=== PATIENT | male | born 1970 | race Caucasian/White ===

== ENCOUNTER 2016-10-23 22:28 | Emergency (ER) | payer BC, OTHER ==
[~2016-10-23] VITALS: Ht 188 cm; Wt 104.6 kg
[~2016-10-23 22:28] MED LIST: AZITTAB PO; FLX10 PO; TRAZ50TA35 PO
[2016-10-23 22:30] VITALS: TEMP 36.7; Ht 188 cm; Wt 104.6 kg
[2016-10-23] MEDS ORDERED: MoRPHine SULFATE 10 MG/ML CARP/VIAL IM STA (22:49)
--- NOTE | 2016-10-23 22:54 | EMERGENCY ROOM VISIT NOTE ---
History First contact with patient: 22:37 Chief Complaint: RIB PAIN Stated Complaint: LF RIB PAIN W/SPASMS History of Present Illness The patient is a 45 year old male who presents to the Emergency Room with complaints of right rib pain. The patient was treated for pneumonia with doxycycline. He had symptoms of upper respiratory tract infection for 2 weeks until he saw the doctor. He just finished the doxycycline. He states that the cough is no longer productive but he still is coughing. His entire family has similar symptoms. The patient states that when he was coughing last week he felt a pulling sensation in the right ribs. He states that he saw his chiropractor and his family doctor and the rib pain was improving. He states that today he sneezed and felt a snap in the right ribs and significant worsening pain. The patient rates his discomfort a 10/10. He denies any shortness of breath. He denies any abdominal pain. He denies any falls or injuries. The patient denies any personal or family history of DVT or PE. The patient denies any recent surgery. He denies any recent travel. He does not smoke. Review of Systems A 10 system review of systems was completed with positives and pertinent negatives listed in the HPI. Past Medical/Surgical History Medical Problems: (1) Lumbar herniated disc Social History Smoking Status: Never Smoker Housing Status: lives with family Current/Historical Medications Scheduled Acetaminophen (Tylenol), 1,000 MG PO PRN UD Hydroxyzine HCl (Hydroxyzine HCl), 1-2 TABS PO HS Levothyroxine Sodium (Levothyroxine Sodium), 175 MCG PO DAILY Multivitamins/Minerals (Mvi With Minerals), 1 TAB PO DAILY Scheduled PRN Oxycodone Ir (Roxicodone Ir), 1-2 TAB PO Q4H PRN for Pain Zaleplon (Zaleplon), 5 MG PO HS PRN for Sleep Allergies Coded Allergies: Naproxen (Verified Allergy, Intermediate, SWELLING EYES AND LIPS, 05/10/14) Penicillins (Verified Allergy, Intermediate, HIVES, SWELLING, 05/10/14) Physical Exam Vital Signs Date Time Temp Pulse Resp B/P Pulse Ox O2 Delivery O2 Flow Rate FiO2 10/24/16 00:12 82 22 128/82 93 Room Air 10/23/16 22:30 36.7 69 24 155/94 100 Room Air Physical Exam VITALS: Vitals are noted on the nurse's note and reviewed by myself. Vital signs stable. The patient is afebrile. He is not tachycardic, tachypneic or hypoxic. GENERAL: This is a 45-year-old male, in no acute distress, nondiaphoretic, well- developed well-nourished. SKIN: The skin was without rashes, erythema, edema, or bruising. There is no tenting of the skin. Capillary reflex less than 2 seconds. HEAD: Normocephalic atraumatic. EARS: The external ears are normal in appearance. EYES: Pupils equal round and reactive to light and accommodation. Conjunctivae without injection, sclerae without icterus. Extraocular movements intact. NOSE: Patent, turbinates without inflammation or discharge. MOUTH: Mucous membranes moist. Tonsils are not enlarged. Pharynx without erythema or exudate. Uvula midline. Airway patent. Tongue does not deviate. NECK: Supple without nuchal rigidity. No JVD. HEART: Regular rate and rhythm without murmurs gallops or rubs. LUNGS: Clear to auscultation bilaterally without wheezes, rales or rhonchi. No retractions or accessory muscle use. Marked tenderness to palpation to the right lateral and anterior ribs. ABDOMEN: Positive bowel sounds x 4. Soft, nontender, without masses or organomegaly. MUSCULOSKELETAL: No muscle atrophy, erythema, or edema noted. Full range of motion in all extremities. Normal gait. Strength 5/5 throughout. NEURO: Patient was alert and oriented to person place and time. No focal neurological deficits. Medical Decision & Procedures ER Provider Diagnostic Interpretation: Chest x-ray was reviewed by myself and does not reveal any obvious abnormality Laboratory Results 10/24/16 00:07 Red Blood Count 4.77, Mean Corpuscular Volume 89.1, Mean Corpuscular Hemoglobin 31.9, Mean Corpuscular Hemoglobin Concent 35.8, Mean Platelet Volume 10.0, Neutrophils (%) (Auto) 67.0, Lymphocytes (%) (Auto) 23.8, Monocytes (%) (Auto) 7.9, Eosinophils (%) (Auto) 0.9, Basophils (%) (Auto) 0.3, Neutrophils # (Auto) 5.18, Lymphocytes # (Auto) 1.84, Monocytes # (Auto) 0.61, Eosinophils # (Auto) 0.07, Basophils # (Auto) 0.02 Test 10/24/16 00:07 10/24/16 00:09 10/24/16 00:17 White Blood Count 7.73 K/uL (4.8-10.8) Red Blood Count 4.77 M/uL (4.7-6.1) Hemoglobin 15.2 g/dL (14.0-18.0) Hematocrit 42.5 % (42-52) Mean Corpuscular Volume 89.1 fL (80-100) Mean Corpuscular Hemoglobin 31.9 pg (25-34) Mean Corpuscular Hemoglobin Concent 35.8 g/dl (32-36) Platelet Count 240 K/uL (130-400) Mean Platelet Volume 10.0 fL (7.4-10.4) Neutrophils (%) (Auto) 67.0 % Lymphocytes (%) (Auto) 23.8 % Monocytes (%) (Auto) 7.9 % Eosinophils (%) (Auto) 0.9 % Basophils (%) (Auto) 0.3 % Neutrophils # (Auto) 5.18 K/uL (1.4-6.5) Lymphocytes # (Auto) 1.84 K/uL (1.2-3.4) Monocytes # (Auto) 0.61 K/uL (0.11-0.59) Eosinophils # (Auto) 0.07 K/uL (0-0.5) Basophils # (Auto) 0.02 K/uL (0-0.2) RDW Standard Deviation 40.5 fL (36.4-46.3) RDW Coefficient of Variation 12.4 % (11.5-14.5) Immature Granulocyte % (Auto) 0.1 % Immature Granulocyte # (Auto) 0.01 K/uL (0.00-0.02) Bedside Hemoglobin 14.6 g/dl (14.0-18.0) Bedside Hematocrit 43 % (42-52) Bedside Sodium 138 mEq/L (135-144) Bedside Potassium 3.8 mEq/L (3.3-5.0) Bedside Chloride 101 mEq/L (101-112) Bedside Total CO2 24 mEq/l (24-31) Anion Gap 19.0 mmol/L (16-25) Bedside Blood Urea Nitrogen 9 mg/dl (7-18) Bedside Creatinine 0.8 mg/dl (0.6-1.3) Bedside Glucose (other) 109 mg/dl (70-99) Bedside Ionized Calcium (Annemarie) 1.18 mmol/l (1.12-1.32) Bedside D-Dimer 177 ng/mlFEU (0-450) Medications Administered Medications (Trade) Dose Ordered Sig/Opal Route Start Time Stop Time Status Last Admin Dose Admin Morphine Sulfate (MoRPHine SULFATE INJ) 6 mg NOW STAT IM 10/23/16 22:49 10/23/16 22:51 DC 10/23/16 23:04 6 MG ECG Indication: SOB/dyspnea Rate (beats per minute): 72 Rhythm: normal sinus Findings: no acute ischemic change ED Course The patient was seen and examined. Previous visits were reviewed. The patient does not have a fever or leukocytosis. D-dimer is not elevated. The patient has had right-sided back pain secondary to coughing and when he sneezed today he felt a snap and significantly worsening pain. He is not tachycardic, tachypneic or hypoxic. He fulfills all 8 PERC criteria. D-dimer was not elevated. He is considered low risk for pulmonary embolus. He does not have any abdominal tenderness on examination. This likely represents musculoskeletal chest pain. The patient was given 6 mg IM morphine with improvement in his pain. He will be given a prescription for OxyIR. He should follow-up with his family doctor next week for recheck, further evaluation and management. He should return to the ER with any trouble breathing, fevers, abdominal pain or generalized worsening symptoms. The case was discussed with who agrees with the assessment and treatment plan. Medical Decision DIFFERENTIAL DIAGNOSIS: Aortic dissection, myocarditis, pericarditis, cervical disc disease, costochondritis, herpes zoster, rib fracture, pleuritis, pneumonia , pulmonary embolus, tension pneumothorax, anxiety disorder, somatoform disorder , choledocholithiasis, status, esophagitis, esophageal spasm, esophageal reflux , esophageal rupture, pancreatitis, peptic ulcer disease, cardiac ischemia, ST elevation [place], acute coronary syndrome, arrhythmia, coronary artery vasospasm. vavular heart disease, coronary artery disease, among others. [place] Drug Monitoring Program Search Results: patient reviewed within database, no issues identified Impression Primary Impression: Rib pain Additional Impression: Pleuritic pain Departure Information Dispostion Home / Self-Care Condition GOOD Prescriptions Oxycodone Ir (Roxicodone Ir) 5 Mg Tab 1-2 TAB PO Q4H Y for Pain, #36 TAB For Initial Treatment Prov: Leonarda Spence PA-C 10/24/16 Referrals Cinda Mcmullen D.O. (PCP) Patient Instructions ED Contusion Rib, My [facility] Additional Instructions Oxy IR 1-2 tablets every 4-6 hrs as needed for worse pain. No driving or alcohol use with Oxy IR. Contact your family doctor Tuesday to schedule a follow-up appointment for further evaluation and management Return to the emergency department with worsening pain, fevers, trouble breathing, abdominal pain Problem Qualifiers
[2016-10-23] MEDS ORDERED: ACET-1256 PO (23:14)
[2016-10-23] MEDS ORDERED: ATR25 PO (23:14)
[2016-10-23] MEDS ORDERED: [UNRECOGNIZED DRUG - CODE] PO (23:14)
[2016-10-23] MEDS ORDERED: MULT-513 PO (23:14)
[2016-10-23] MEDS ORDERED: LEVO175T3 PO (23:14)
[2016-10-24 00:22] LABS: BASO % 0.3 %; BASO ABS # 0.02 K/uL (0-0.2); COMPLETE YES; EOS % 0.9 %; HEMATOCRIT 42.5 % (42-52); IG% 0.1 %; LYMPH % 23.8 %; LYMPH ABS # 1.84 K/uL (1.2-3.4); MEAN CELL VOLUME 89.1 fL (80-100); MEAN CORPUSCULAR HEMOGLOBIN 31.9 pg (25-34); MEAN CORPUSCULAR HGB CONC 35.8 g/dl (32-36); MONO % 7.9 %; PLATELET COUNT 240 K/uL (130-400); RED BLOOD COUNT 4.77 M/uL (4.7-6.1); WHITE BLOOD COUNT 7.73 K/uL (4.8-10.8)
[2016-10-24 00:25] LABS: ISTAT CREATININE 0.8 mg/dl (0.6-1.3); ISTAT HEMOGLOBIN 14.6 g/dl (14.0-18.0); ISTAT IONIZED CALCIUM 1.18 mmol/l (1.12-1.32)
[2016-10-24] MEDS ORDERED: OXYC1TAB3 PO (00:33)
[2016-10-24] MEDS ORDERED: OXYCODONE IR HOME PACK PO ONE (00:45)
[2016-10-24 00:53] VITALS: BP 128/82; PULSE 82; O2SAT 95
--- NOTE | 2016-10-24 06:00 | DIAGNOSTIC IMAGING REPORT ---
RIGHT RIBS UNILATERAL WITH PA CHEST CLINICAL HISTORY: right rib pain Right COMPARISON STUDY: None FINDINGS: Negative study IMPRESSION: Negative study Electronically signed by: Randy Ramirez M.D. 10/24/2016 5:59 AM Dictated Date/Time: 10/24/2016 5:58 AM
== END 2016-10-24 00:54 | disposition home or self-care (01) ==
LOC: C.EDB 22:30 → C.EDC 10-24 00:54
DX: R07.81 Pleurodynia (principal)

== ENCOUNTER 2024-03-29 15:40 | Inpatient (IN) ==
[2024-03-29 16:19] LABS: Basophils # (auto) 0.05 K/uL (0.00-0.20); Basophils % (auto) 0.6 %; Eosinophils # (auto) 0.15 K/uL (0.00-0.50); Eosinophils % (auto) 1.9 %; Hematocrit (blood only) 39.6 % (42.0-52.0); Hemoglobin 13.4 g/dl (14.0-18.0); Immature Granulocytes # (auto) 0.04 K/uL (0.01-0.20); Immature Granulocytes % (auto) 0.5 %; Lymphocytes # (auto) 0.52 K/uL (1.20-3.40); Lymphocytes % (auto) 6.6 %; Mean Corpuscular Hemoglobin 30.3 pg (25.0-34.0); Mean Corpuscular Hgb Conc 33.8 g/dL (32.0-36.0); Mean Corpuscular Volume 89.6 fL (80.0-100.0); Mean Platelet Volume 9.9 fL (9.4-12.4); Monocytes # (auto) 0.64 K/uL (0.11-0.59); Monocytes % (auto) 8.1 %; Neutrophils # (auto) 6.46 K/uL (1.40-6.50); Neutrophils % (auto) 82.3 %; Platelet Count 195 K/uL (130-400); RDW Coefficient of Variation 14.2 % (11.5-14.5); RDW Standard Deviation 46.5 fL (36.4-46.3); Red Blood Count 4.42 M/uL (4.70-6.10); White Blood Count 7.86 K/ul (4.8-10.8)
[2024-03-29 16:29] LABS: Albumin Globulin Ratio 1.6 (0.9-2); Albumin Level 4.1 gm/dl (3.4-5.0); BUN Creatinine Ratio 12.4 (10-20); Calcium 8.7 mg/dl (8.6-10.3); Creatinine Clr Calc Pharmacy 44.6 ml/min; Est GFR (African American) 32.7 ml/min; Est GFR (Non-African American) 28.3 ml/min; Globulin 2.6 gm/dl (2.5-4.0); Potassium 3.3 mmol/L (3.5-5.1); Total Protein 6.7 gm/dl (6.0-8.3)
--- NOTE | 2024-03-29 16:30 | Emergency Department Note ---
Impression & Plan Pneumonia, VENKAT (acute kidney injury), Elevated troponin, CHF (congestive heart failure) ED Provider Note Diagnosis: Pneumonia, VENKAT, hypertension, CHF, elevated troponin Disposition: Admission CHIEF COMPLAINT: Sent by PCP HPI: Patient is a 53-year-old male presenting with complaint of cough and shortness of breath for 2 months time. Patient states that went to primary care physician 2 days prior had a chest x-ray and blood work performed. Patient was found to have multifocal pneumonia started on Levaquin prescribed today. Patient had blood work a creatinine of 2-1/2 which reportedly is new for him. Patient was hypertensive and his blood pressure medication of HCTZ was switched to amlodipine. Patient states he has been having swelling in his hands and been having generalized weakness in his legs bilaterally after exerting himself for periods of time. Patient states he goes to chiropractor regularly. Patient denies any trauma or current back pain. PAST MEDICAL HISTORY: See Below PAST SURGICAL HISTORY: See Below SOCIAL HISTORY: See Below HOME MEDICATIONS: See Below ALLERGIES: See Below VITALS: See Below PHYSICAL EXAMINATION: GENERAL: Well appearing, well nourished, NAD, non-toxic. EYE EXAM: Normal conjunctiva. OROPHARYNX: Moist mucus membranes. Grossly normal dentition. NECK: Supple, LUNGS: Clear to auscultation. Normal chest wall mechanics. HEART: NSR ABDOMEN: Abdomen soft, non-tender, normo-active bowel sounds, no masses, no rebound or guarding BACK: No CVA TTP. SKIN: No rashes and no bruising. UPPER EXTREMITIES: Upper extremities are grossly normal LOWER EXTREMITIES: Grossly normal, no edema. NEURO EXAM: A&O x3,, normal speech, moves all 4 extremities PSYCH: Cooperative MEDICAL DECISION MAKING: Reviewed external documents: Family doctor note from 2 days prior History obtained from: Patient, ER Course: Patient is a 53-year-old male presenting with reports of feeling short of breath for the past 2 to 3 months time. Patient made new family doctor appointment this week had a chest x-ray performed which showed multifocal pneumonia and was started on Levaquin which she took the first dose of today. Patient had blood work performed which showed a creatinine of 2.5. Patient sent to the ER for further evaluation. Patient had his hydrochlorothiazide stopped and was placed on amlodipine. Patient's blood pressure above 200 systolic upon arrival. Patient having no active chest pain currently. Patient's creatinine today is 2.5. Patient does not have any white count. Patient's chest x-ray does show multifocal pneumonia left greater than right. Patient's troponin is slightly elevated. Patient's BNP is approximately 300. Patient states that he has noticed some swelling in his fingertips and of his lower extremities recently. Patient states he is not taking any of his blood pressure medications in 1 to 2 years time. Patient states over the past year he has episodes the last 5 to 10 minutes time where he feels like his heart is racing and an erratic pattern. Patient in normal sinus rhythm currently but concern for potential undiagnosed A-fib. Patient's case discussed with [facility] service further treatment and evaluation Labs (independently interpreted) are significant for: Troponin slightly elevated, acute kidney injury, elevated BNP Imaging results (independently interpreted): Chest x-ray pneumonia left greater than right EKG interpretation (independently interpreted): Normal sinus rhythm Medications given: Labetalol Consultants: [facility] Triage Nursing notes reviewed and agree them. Vital Signs: reviewed and remarkable for: Hypertension Past Med/Surg History Problem List (Updated 03/29/24 @ 18:12 by Sacha Magana DO) CHF (congestive heart failure) (Acute) Elevated troponin (Acute) VENKAT (acute kidney injury) (Acute) Pneumonia (Acute) Chronic rhinitis Eustachian tube dysfunction BPPV (benign paroxysmal positional vertigo) Pressure sensation in both ears Sensorineural hearing loss (SNHL) of both ears asymmetric wrs Finger laceration (Acute) Lumbar herniated disc Medical History (Updated 03/29/24 @ 18:12 by Sacha Magana DO) Hypothyroid Asthma Seasonal allergies H/O gastroesophageal reflux (GERD) Surgical History (Updated 02/10/21 @ 08:26 by Nona Salazar) History of repair of hiatal hernia Family History (Updated 02/10/21 @ 08:28 by Nona Salazar) Grandfather (Maternal) Hearing loss Father Hypertension Grandmother (Paternal) Cancer unknown type Family/Other Asthma patient not sure but thinks he has a family history of asthma Other No family history of adverse response to anesthesia No family history of bleeding disorder Social History (Updated 02/10/21 @ 08:28 by Nona Salazar) Smoking Status: Never smoker Do You Dip or Chew Tobacco: No; Hx Alcohol Use: Yes Alcohol Intake Frequency Comment: occasional Hx Substance Use: No marital status: Single current occupational status: employed 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 Feels Safe at Home: Yes Allergies Allergies Allergy/AdvReac Type Severity Reaction Status Date / Time naproxen Allergy Intermediate SWELLING Verified 06/22/21 08:53 EYES AND LIPS Penicillins Allergy Intermediate HIVES, Verified 06/22/21 08:53 SWELLING amoxicillin Allergy Unknown Verified 06/22/21 08:53 Home Meds Home Medications Medication Instructions Recorded Confirmed fluticasone 250 mcg-salmeterol 50 1 inh inhalation BID 02/10/21 06/22/21 mcg/dose blistr powdr for inhalation (Wixela Inhub) levothyroxine 200 mcg tablet 200 mcg PO DAILY 02/10/21 06/22/21 Previous Rx's Medication Instructions Recorded prednisone 10 mg tablet 10 mg PO .COMPLEX #35 tabs 02/26/21 fluticasone propionate 50 2 spray intranasal DAILY #15.8 mL 08/27/21 mcg/actuation nasal spray,suspension Results & Data (ED) Vital Signs Vital Signs - 24 hr 03/29/24 15:44 03/29/24 16:41 03/29/24 16:42 Temperature 36.7 C Temperature Source Skin Oral Pulse Rate 95 H 87 Pulse Rate [Apical] Pulse Rhythm [Apical] Regular Respiratory Rate 18 20 Respiratory Depth Normal Blood Pressure 207/90 H Blood Pressure [Left Arm] 186/119 H Blood Pressure Mean 129 Blood Pressure Mean [Left Arm] 141 Pulse Oximetry 97 96 Oxygen Delivery Method Room Air Room Air Sepsis Recent Fever Within 48 Hours No Sepsis New/Unexplained Change in Mental Status No Sepsis Action Taken by Nursing No Action Required 03/29/24 16:59 03/29/24 16:59 03/29/24 17:55 Temperature Temperature Source Pulse Rate Pulse Rate [Apical] 76 Pulse Rhythm [Apical] Regular Respiratory Rate 16 Respiratory Depth Normal Blood Pressure Blood Pressure [Left Arm] 180/117 H Blood Pressure Mean Blood Pressure Mean [Left Arm] 138 Pulse Oximetry 98 97 Oxygen Delivery Method Room Air Room Air Room Air Sepsis Recent Fever Within 48 Hours Sepsis New/Unexplained Change in Mental Status Sepsis Action Taken by Nursing Laboratory Data 03/29/24 15:56 03/29/24 15:56 Lab Results 03/29/24 03/29/24 Range/Units 15:56 Unknown WBC 7.86 (4.8-10.8) K/ul RBC 4.42 L (4.70-6.10) M/uL Hgb 13.4 L (14.0-18.0) g/dl Hct 39.6 L (42.0-52.0) % MCV 89.6 (80.0-100.0) fL MCH 30.3 (25.0-34.0) pg MCHC 33.8 (32.0-36.0) g/dL RDW Std Deviation 46.5 H (36.4-46.3) fL RDW Coeff of Meena 14.2 (11.5-14.5) % Plt Count 195 (130-400) K/uL MPV 9.9 (9.4-12.4) fL Immature Gran % (Auto) 0.5 % Neut % (Auto) 82.3 % Lymph % (Auto) 6.6 % Camp % (Auto) 8.1 % Eos % (Auto) 1.9 % Baso % (Auto) 0.6 % Neut # (Auto) 6.46 (1.40-6.50) K/uL Lymph # (Auto) 0.52 L (1.20-3.40) K/uL Camp # (Auto) 0.64 H (0.11-0.59) K/uL Eos # (Auto) 0.15 (0.00-0.50) K/uL Baso # (Auto) 0.05 (0.00-0.20) K/uL Immature Gran # (Auto) 0.04 (0.01-0.20) K/uL PT 12.1 H (9.0-12.0) Seconds INR 1.1 (0.9-1.1) APTT 28 (21-31) Seconds PTT Ratio 1.0 Sodium 135 L (136-145) mmol/L Potassium 3.3 L (3.5-5.1) mmol/L Chloride 99 (98-107) mmol/L Carbon Dioxide 27 (21-32) mmol/L Anion Gap 9 (3-11) BUN 31 H (6-23) mg/dl Creatinine 2.50 H (0.6-1.4) mg/dl Est Cr Clr Drug Dosing 44.6 ml/min Est GFR ( Amer) 32.7 ml/min Est GFR (Non-Af Amer) 28.3 ml/min BUN/Creatinine Ratio 12.4 (10-20) Glucose 172 H (70-99(Fasting)) mg/dl Calcium 8.7 (8.6-10.3) mg/dl Total Bilirubin 3.0 H (0.2-1.0) mg/dl AST 35 (13-39) U/L ALT 16 (7-52) U/L Alkaline Phosphatase 51 (34-104) U/L Total Creatine Kinase 296 H (30-223) U/L Troponin I High Sens 21.9 H (0-20) pg/ml B-Natriuretic Peptide 340 H (0-100) pg/ml Total Protein 6.7 (6.0-8.3) gm/dl Albumin 4.1 (3.4-5.0) gm/dl Globulin 2.6 (2.5-4.0) gm/dl Albumin/Globulin Ratio 1.6 (0.9-2) Urine Color Yellow Urine Appearance Clear (Clear) Urine pH 6.0 (4.5-7.5) Ur Specific [place] 1.020 (1.000-1.030) Urine Protein 1+ H (Negative) Urine Glucose (UA) Negative (Negative) Urine Ketones Negative (Negative) Urine Blood Negative (Negative) Urine Nitrite Negative (Negative) Urine Bilirubin Negative (Negative) Urine Urobilinogen Negative (Negative) Ur Leukocyte Esterase Negative (Negative) Urine WBC (Auto) 0-5 (0-5) /hpf Urine RBC (Auto) 0-2 (0-2) /hpf U Hyaline Cast (Auto) 3-5 H (0-2) /lpf U Epithel Cells (Auto) 0-2 (0-2) /hpf Urine Bacteria (Auto) None Seen (None Seen) Administered Medications Discontinued Medications Sodium Chloride (Nss) 1,000 mls @ 999 mls/hr IV .Q1H1M ONE Stop: 03/29/24 17:28 Last Admin: 03/29/24 16:35 Dose: 999 mls/hr Documented By: TIESHA Labetalol HCl (Labetalol Hcl Iv 5 Mg/Ml 20ml) 10 mg IV NOW STA Stop: 03/29/24 16:49 Last Admin: 03/29/24 16:54 Dose: 10 mg Documented By: TIESHA Co-signed By: JAMES Imaging Data Radiologist's Impression: Chest X-Ray 03/29/24 15:48 XR chest 1V not portable HISTORY: 53 years-old Male Chest pain, nonspecific COMPARISON: 12/31/2020 TECHNIQUE: AP view of the chest FINDINGS: Cardiac silhouette is enlarged. Pulmonary vascular congestion. Left greater than right mid to lower lung zone and patchy multifocal nodular airspace opacities. No pneumothorax. Probable small pleural effusions. Bones appear grossly intact. IMPRESSION: 1. Peripheral and mid to lower lung zone predominate left greater than right multifocal airspace opacities suggestive of multifocal pneumonia. Short-term follow-up recommended in order to document resolution. 2. Pulmonary vascular congestion. 3. Equivocal small pleural effusions. ACT 112: Negative or not required by law. The above report was generated using voice recognition software. It may contain grammatical, syntax or spelling errors. Electronically signed by: Adam Aguilera M.D. 03/29/2024 5:17 PM Discharge Plan Visit Data Chief Complaint: Abnormal Labs/Diagnostic Testing Stated Complaint: DOC REF, PNEUMONIA, ABN LABS ED Provider: Sacha Magana Discharge Problem: Pneumonia, VENKAT (acute kidney injury), Elevated troponin, CHF (congestive heart failure) Forms Stand Alone Forms: My [facility] Prescriptions Prescriptions: No Action fluticasone propionate 50 mcg/actuation spray,suspension 2 spray intranasal DAILY Qty: 15.8 6RF Rx Instructions: administer into each nostril prednisone 10 mg tablet 10 mg PO .COMPLEX Qty: 35 0RF Rx Instructions: 5 tabs day 1, then 4 tabs x 4 days, 3 tabs x 3 days then 2 tab x 2 days then 1 tab x 1 day then stop fluticasone propion-salmeterol [Wixela Inhub] 250-50 mcg/dose blister with device 1 inh inhalation BID levothyroxine 200 mcg tablet 200 mcg PO DAILY Referrals Referrals: Cinda Mcmullen DO [Outside Practitioners] -
[2024-03-29] MEDS: SODIUM CHLORIDE 0.9% 1,000 ML IV ONE (16:35)
[2024-03-29 16:36] LABS: Troponin I High Sensitivity 21.9 pg/ml (0-20)
[2024-03-29 16:42] LABS: INR 1.1 (0.9-1.1); Partial Thromboplastin Time 28 Seconds (21-31); Prothrombin Time 12.1 Seconds (9.0-12.0)
[2024-03-29] MEDS: LABETALOL HCL IV 5 MG/ML 20ML IV STA (16:54)
--- NOTE | 2024-03-29 17:18 | XRay Report ---
XR chest 1V not portable HISTORY: 53 years-old Male Chest pain, nonspecific COMPARISON: 12/31/2020 TECHNIQUE: AP view of the chest FINDINGS: Cardiac silhouette is enlarged. Pulmonary vascular congestion. Left greater than right mid to lower l marii zone and patchy multifocal nodular airspace opacities. No pneumothorax. Probable small pleural ef fusions. Bones appear grossly intact. IMPRESSION: 1. Peripheral and mid to lower lung zone predominate left greater than right multifocal airspace opac ities suggestive of multifocal pneumonia. Short-term follow-up recommended in order to document resol ution. 2. Pulmonary vascular congestion. 3. Equivocal small pleural effusions. ACT 112: Negative or not required by law. The above report was generated using voice recognition software. It may contain grammatical, syntax o r spelling errors. Electronically signed by: Adam Aguilera M.D. 03/29/2024 5:17 PM
[2024-03-29 17:26] LABS: Appearance Urine Clear (Clear); Bacteria Urine Automated None Seen (None Seen); Bilirubin Urine Negative (Negative); Blood Urine Negative (Negative); Color Urine Yellow; Epithelial Cell Urine Auto 0-2 /hpf (0-2); Glucose Urine UA Negative (Negative); Ketones Urine Negative (Negative); Leukocyte Esterase Urine Negative (Negative); Nitrite Urine Negative (Negative); Protein Urine 1+ (Negative); RBC Urine Automated 0-2 /hpf (0-2); Urobilinogen Urine Negative (Negative); WBC Urine Automated 0-5 /hpf (0-5)
[2024-03-29 18:20] LABS: Creatinine Urine Random 149.4 mg/dl; Protein Creatinine Ratio Urine 0.5 (0-0.2); Total Protein Urine Random 79.4 mg/dl (0-11.9)
--- NOTE | 2024-03-29 18:41 | History & Physical Report ---
Date of Service March 29, 2024 Assessment & Plan (1) VENKAT (acute kidney injury): (2) Hypertensive urgency: (3) Multifocal pneumonia: Plan: 53-year-old male with history of hypertension and hypothyroidism Presenting with abnormal lab results from primary care physician's office. Acute renal failure Likely secondary to longstanding uncontrolled hypertension, underlying pneumonia No baseline creatinine available Urinalysis showing protein, hyaline casts Check renal ultrasound Given 1 L of NSS at the ER Continue with gentle IV fluids, IV NSS at 60 cc/h Nephrology service consulted Hypertensive urgency start Carvedilol 6.25mg po BID continue Amlodipine 5 mg p.o. daily Hydralazine 5 mg IV every 6 hours as needed Multifocal pneumonia Obtain BioFire, Legionella urine, MRSA swab, sputum culture, blood cultures CT chest ordered Start Xopenex every 6 hours, incentive spirometry, flutter valve, Mucinex Continue Levaquin 750 mg every other day (patient took 1 dose earlier today, n ext dose will be on March 31) Elevated BNP BNP slightly elevated, rule out CHF Check echocardiogram First troponin 21, obtain second troponin level Elevated bilirubin History of Gilbert syndrome as per patient Total Bilirubin 3.0 AST/ALT normal Check liver ultrasound LFTs daily Elevated CK level CK 296 Repeat level tomorrow Episodes of palpitations History hypothyroidism Check TSH Continue levothyroxine Monitor in telemetry May need Zio patch as an outpatient DVT prophylaxis SCDs for now start Heparin SC once BP under control Code full code Disposition Admit to PCU Lives at home with family plan of care discussed with patient and his at bedside in detail and at length all questions answered they are understanding, agreeable, comfortable with the plan of care History of Present Illness Chief Complaint: Abnormal lab results from primary care physician's office Primary Care Provider: Cinda Zafar MD 53-year-old male with history of hypertension and hypothyroidism Presenting with abnormal lab results from primary care physician's office. Patient states he was under care of former PCP for hypertension and hypothyroidism. He discontinued the medication for hypertension 3 months ago as it was giving him side effects. For the past month, patient has been having persistent cough productive of yellow,brown sputum associated with intermittent shortness of breath, and night sweats. He has also noted mild but progressive bilateral hand and lower leg swelling, as well as decreased urine output. No vomiting, diarrhea, NSAID use. Yesterday he transitioned to a new primary care physician Dr. Unruly Green who obtained blood work as well as chest x-ray. Creatinine was found to be at 2.5, chest x-ray showing multifocal pneumonia. He was prescribed with amlodipine 5 mg daily, and Levaquin 750 mg every 2 days and was directed to proceed to the ER. At the ER, patient was found to have blood pressure systolic 200s, and was given IV labetalol. On exam, patient seen sitting up in bed, comfortable, not in distress. States he feels tired, but denies active shortness of breath, chest pain, nausea, dizziness, palpitations. Allergies Allergy/AdvReac Type Severity Reaction Status Date / Time naproxen Allergy Intermediate SWELLING Verified 03/29/24 18:35 EYES AND LIPS Penicillins Allergy Intermediate HIVES, Verified 03/29/24 18:35 SWELLING amoxicillin Allergy Unknown Verified 03/29/24 18:35 Home Medications Medication Instructions Recorded Confirmed Type levothyroxine 200 mcg tablet 200 mcg PO DAILY 02/10/21 03/29/24 History fluticasone propionate 50 2 spray intranasal DAILY #15.8 mL 08/27/21 03/29/24 Rx mcg/actuation nasal spray,suspension amlodipine 10 mg tablet 5 mg PO QAM 03/29/24 03/29/24 History guaifenesin 600 mg tablet, 600 mg PO Q12H PRN Congestion 03/29/24 03/29/24 History extended release 12 hr (Mucinex) levofloxacin 750 mg tablet 750 mg PO Q OTHER DAY 03/29/24 03/29/24 History multivitamin with minerals 1 tab PO DAILY 03/29/24 03/29/24 History Past Med/Surg History Problem List (Updated 03/29/24 @ 18:36 by Deric Simpson MD) Multifocal pneumonia Hypertensive urgency CHF (congestive heart failure) (Acute) Elevated troponin (Acute) VENKAT (acute kidney injury) (Acute) Pneumonia (Acute) Chronic rhinitis Eustachian tube dysfunction BPPV (benign paroxysmal positional vertigo) Pressure sensation in both ears Sensorineural hearing loss (SNHL) of both ears asymmetric wrs Finger laceration (Acute) Lumbar herniated disc Medical History (Updated 03/29/24 @ 18:36 by Deric Simpson MD) Hypothyroid Asthma Seasonal allergies H/O gastroesophageal reflux (GERD) Surgical History (Updated 02/10/21 @ 08:26 by Nona Moleculin) History of repair of hiatal hernia Family History (Updated 02/10/21 @ 08:28 by Nona Moleculin) Grandfather (Maternal) Hearing loss Father Hypertension Grandmother (Paternal) Cancer unknown type Family/Other Asthma patient not sure but thinks he has a family history of asthma Other No family history of adverse response to anesthesia No family history of bleeding disorder Social History (Updated 02/10/21 @ 08:28 by Nona Moleculin) Smoking Status: Never smoker Do You Dip or Chew Tobacco: No; Hx Alcohol Use: Yes Alcohol Intake Frequency Comment: occasional Hx Substance Use: No marital status: Single current occupational status: employed 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 Feels Safe at Home: Yes Review of Systems Review of Systems: all noted and negative except for above Physical Exam Physical Exam: General- oriented x 3, not in distress, speaks in sentences with no effort or accessory muscle use Head- atraumatic Eyes- PERRL, EOMI, anicteric ENT- oropharynx clear Neck- supple, no JVD, no adenopathy, no thyromegaly; carotids +2/2, no bruits appreciated Lungs- Very mild crackles at the bilateral bases No wheeze Heart- normal rate, regular rhythm; no murmur, no gallop, no rub appreciated Abdomen- normal bowel sounds, nondistended, soft, nontender, no masses or hepatosplenomegaly Extremities-Mild bilateral hand edema,trace no pretibial edema, no calf tenderness; peripheral pulses intact Neuro- alert, oriented x 3; CN 2-12 grossly intact; motor 5/5 bilaterally;sensation 100% on all extremities; no other gross focal neurologic deficits Skin- warm & dry Results & Data Results & Data Vital Signs (Past 12 Hours) Vital Signs Temp Pulse Pulse Resp BP BP Pulse Ox 03/29/24 17:55 76 16 180/117 H 97 03/29/24 16:59 98 03/29/24 16:59 03/29/24 16:42 20 186/119 H 96 03/29/24 16:41 87 03/29/24 15:44 36.7 C 95 H 18 207/90 H 97 O2 Del Method 03/29/24 17:55 Room Air 03/29/24 16:59 Room Air 03/29/24 16:59 Room Air 03/29/24 16:42 Room Air 03/29/24 16:41 03/29/24 15:44 Room Air all noted and reviewed including below Code Status & VTE Plan VTE Prophylaxis Plan VTE Prophylaxis will be ordered: Yes
[2024-03-29] MEDS: amLODIPine BESYLATE 5 MG TAB PO ONE (18:42)
[2024-03-29] MEDS: LEVALBUTEROL 1.25 MG/3 ML NEB NEB SCH (20:44)
[2024-03-29] MEDS ORDERED: ACETAMINOPHEN 325 MG TAB PO PRN (21:31)
[2024-03-29] MEDS: hydrALAZINE HCL 20 MG/ML VIAL IV PRN (21:57)
[2024-03-29] MEDS: SODIUM CHLORIDE 0.9% 1,000 ML IV SCH (22:30)
[2024-03-29 22:49] LABS: Adenovirus PCR Not Detected (NotDetected); Bordetella parapertussis PCR Not Detected (NotDetected); Bordetella pertussis PCR Not Detected (NotDetected); Chlamydia pneumoniae PCR Not Detected (NotDetected); Coronavirus 229E PCR Not Detected (NotDetected); Coronavirus CoV-2 (COVID19)PCR Not Detected (NotDetected); Coronavirus HKU1 PCR Not Detected (NotDetected); Coronavirus NL63 PCR Not Detected (NotDetected); Coronavirus OC43PCR Not Detected (NotDetected); Human Metapneumovirus PCR Not Detected (NotDetected); Influenza A PCR Not Detected (NotDetected); Influenza B PCR Not Detected (NotDetected); Mycoplasma pneumoniae PCR Not Detected (NotDetected); Parainfluenza Virus 1 PCR Not Detected (NotDetected); Parainfluenza Virus 2 PCR Not Detected (NotDetected); Parainfluenza Virus 3 PCR Not Detected (NotDetected); Parainfluenza Virus 4 PCR Not Detected (NotDetected); Respiratory Syncytial VirusPCR Not Detected (NotDetected); Rhinovirus/Enterovirus PCR Not Detected (NotDetected)
[2024-03-29] MEDS: carvediloL 6.25 MG TAB PO SCH (22:53)
[2024-03-29] MEDS: POTASSIUM CHLORIDE CRTAB 20 MEQ TABCR PO STA (22:53)
[2024-03-30] MEDS: SODIUM CHLOR 7% 4 ML NEB NEB SCH (07:10)
--- NOTE | 2024-03-30 07:10 | Ultrasound Report ---
ABDOMINAL ULTRASOUND, RIGHT UPPER QUADRANT HISTORY: Elevated LFTs elevated bilirubin. COMPARISON: Abdominal ultrasound 01/18/2013, CT 01/02/2015 FINDINGS: Pancreas: The pancreas is mostly obscured by bowel gas. Liver: Measures 19 cm in length. No pancreatic mass identified. There is suggestion of subtle margina l nodularity of the liver. Gallbladder: Gallbladder polyps measure up to 3 mm. No shadowing cholelithiasis. CBD: 0.3 cm. Right kidney: No hydronephrosis. IMPRESSION: 1. No cholelithiasis or sonographic evidence of acute cholecystitis. 2. No biliary ductal dilation. 3. Gallbladder polyps measure up to 3 mm. 4. Equivocal marginal nodularity of the liver. Correlate with LFTs to exclude early cirrhosis. ACT 112: Negative or not required by law. Electronically signed by: Adam Aguilera M.D. 03/30/2024 7:08 AM
[2024-03-30 07:39] LABS: Basophils # (auto) 0.05 K/uL (0.00-0.20); Basophils % (auto) 0.7 %; Eosinophils # (auto) 0.16 K/uL (0.00-0.50); Eosinophils % (auto) 2.1 %; Hemoglobin 13.1 g/dl (14.0-18.0); Immature Granulocytes # (auto) 0.03 K/uL (0.01-0.20); Immature Granulocytes % (auto) 0.4 %; Lymphocytes # (auto) 0.66 K/uL (1.20-3.40); Lymphocytes % (auto) 8.7 %; Mean Corpuscular Hemoglobin 30.2 pg (25.0-34.0); Mean Corpuscular Hgb Conc 33.6 g/dL (32.0-36.0); Mean Corpuscular Volume 89.9 fL (80.0-100.0); Mean Platelet Volume 9.6 fL (9.4-12.4); Monocytes # (auto) 0.82 K/uL (0.11-0.59); Monocytes % (auto) 10.9 %; Neutrophils # (auto) 5.83 K/uL (1.40-6.50); Neutrophils % (auto) 77.2 %; Platelet Count 162 K/uL (130-400); RDW Coefficient of Variation 14.4 % (11.5-14.5); RDW Standard Deviation 46.6 fL (36.4-46.3); Red Blood Count 4.34 M/uL (4.70-6.10); White Blood Count 7.55 K/ul (4.8-10.8)
[2024-03-30 08:06] LABS: Albumin Level 3.8 gm/dl (3.4-5.0); BUN Creatinine Ratio 10.8 (10-20); Bilirubin Direct 0.4 mg/dl (0-0.2); Bilirubin,Total 2.6 mg/dl (0.2-1.0); Calcium 8.6 mg/dl (8.6-10.3); Creatinine Clr Calc Pharmacy 46.4 ml/min; Est GFR (African American) 34.4 ml/min; Est GFR (Non-African American) 29.7 ml/min; Potassium 3.7 mmol/L (3.5-5.1); Total Protein 6.4 gm/dl (6.0-8.3)
[2024-03-30 08:21] LABS: Thyroid Stimulating Hormone 16.055 uIu/ml (0.300-4.500)
[2024-03-30] MEDS ORDERED: guaiFENesin 600 MG TABCR PO PRN (08:22)
--- NOTE | 2024-03-30 08:48 | Ultrasound Report ---
RENAL ULTRASOUND HISTORY: acute renal failure COMPARISON: Abdomen and pelvis CT 06/20/2013. FINDINGS: Right kidney: 11.6 cm. No hydronephrosis. Normal cortical thickness. Slight increased cortical echoge nicity. Left kidney: 11.3 cm. No hydronephrosis. Normal cortical thickness. Slight increased cortical echogen icity. Bladder: No bladder wall thickening. The bilateral ureteral jets were identified. IMPRESSION: 1. No hydronephrosis. 2. Slight increased cortical echogenicity bilaterally which could be technical. Early medical renal d isease is not excluded. ACT 112: Negative or not required by law. Electronically signed by: Marcell Duncan M.D. 03/30/2024 8:46 AM
[2024-03-30] MEDS: amLODIPine BESYLATE 5 MG TAB PO SCH (09:41)
--- NOTE | 2024-03-30 12:15 | Nephrology Consultation ---
Date of Consultation March 30, 2024 Assessment & Plan (1) VENKAT (acute kidney injury): At this point I do not have any baseline renal function to compare. As per patient he was never told he had abnormal kidney function. we will try to obtain medical records from his prior PCP who was with [facility]. but at this point we will go by what patient is saying and assume his baseline kidney function is normal. given this will call this as acute kidney injury. creatinine has been 2.4-2.5 range for 4 days now which is more suggestive of this being CKD. renal ultrasound was unremarkable. urine dipstick did not show significant findings. He does have moderate proteinuria of around half a gram by ratio in the setting of hypertensive urgency. This is not consistent with any type of glomerular nephritis or nephrotic syndrome. I will be repeating his UA and proteinuria check once blood pressure is stabilized. (2) Multifocal pneumonia: based on symptoms as well as imaging. It is being checked and treated. Consider CT of the chest as well as urine Legionella. (3) Hypertensive urgency: patient has had history of hypertension for while but has not been on medication. Patient has been started on amlodipine and carvedilol and with that blood pressure is starting to get better. most recent reading is 166 x 99 and that is acceptable for the time being. there is risk of renal decline if blood pressure drops very abruptly (4) CHF (congestive heart failure): some finding of CHF on the imaging and given extremely high blood pressure I would recommend to do echocardiogram Plan total time spent 65 minutes. History of Present Illness Reason for Consultation: VENKAT and HTN Attending Physician: Seferino Bateman MD History of Present Illness 53/M with Sub optimal health care in past. Seen by PCP just few days ago to establish care. renal function abnormal at 2.4. No prior baseline to compare. to his knowledge never been told about abnormal kidney function. He has history of hypertension but does not appear it was treated before and hypothyroidism.He discontinued lisinopril 3 months ago as it was giving him side effects-- mainly muscle cramps. . For the past month, patient has been having persistent cough productive of yellow,brown sputum associated with intermittent shortness of breath, and night sweats. he is also having lot of stress in his family both in job as well as relationship but did not want to elaborate further. He has also noted mild but progressive bilateral hand and lower leg swelling, as well as decreased urine output. No vomiting, diarrhea, NSAID use. just few days ago he transitioned to a new primary care physician Dr. Unruly Green who obtained blood work as well as chest x-ray. Creatinine was found to be at 2.5, chest x-ray showing multifocal pneumonia. he was directed to proceed to the ER. in the ER, patient was found to have blood pressure systolic 200s, and was given IV labetalol. since being admitted he has had renal ultrasound done which was unremarkable. A liver ultrasound was also done and was also overall unremarkable. chest x-ray shows multifocal pneumonia as well as findings of pulmonary vascular congestion and some pleural effusion. his blood pressure is getting better with the most recent reading of 166 x 99. he is getting normal saline. However it is worth noting that from March 27 till today creatinine is unchanged at 2.4-2.5. review of systems---- positive for increasing productive cough as well as intermittent shortness of breath night sweat lot of stress and anxiety. otherwise 12 systems reviewed and negative physical examination awake alert oriented x3 able to give detailed account of his medical problem. He does appear to be quite anxious. no respiratory distress mucous membrane is moist neck is supple no JVD chest bilateral occasional crackles at the bases. CVS S1-S2 regular abdomen is soft nontender extremities shows no edema skin shows no rash Allergies Allergy/AdvReac Type Severity Reaction Status Date / Time naproxen Allergy Intermediate SWELLING Verified 03/29/24 18:35 EYES AND LIPS Penicillins Allergy Intermediate HIVES, Verified 03/29/24 18:35 SWELLING amoxicillin Allergy Unknown Verified 03/29/24 18:35 Home Medications Medication Instructions Recorded Confirmed Type levothyroxine 200 mcg tablet 200 mcg PO DAILY 02/10/21 03/29/24 History fluticasone propionate 50 2 spray intranasal DAILY #15.8 mL 08/27/21 03/29/24 Rx mcg/actuation nasal spray,suspension amlodipine 10 mg tablet 5 mg PO QAM 03/29/24 03/29/24 History guaifenesin 600 mg tablet, 600 mg PO Q12H PRN Congestion 03/29/24 03/29/24 History extended release 12 hr (Mucinex) levofloxacin 750 mg tablet 750 mg PO Q OTHER DAY 07/11/24 07/11/24 History multivitamin with minerals 1 tab PO DAILY 03/29/24 03/29/24 History Patient History Medical History Hypothyroid Asthma Seasonal allergies H/O gastroesophageal reflux (GERD) Surgical History History of repair of hiatal hernia Family History Grandfather (Maternal) Hearing loss Father Hypertension Grandmother (Paternal) Cancer unknown type Family/Other Asthma patient not sure but thinks he has a family history of asthma Other No family history of adverse response to anesthesia No family history of bleeding disorder Social History Smoking Status: Never smoker Second Hand Exposure: No; Do You Dip or Chew Tobacco: No; Tobacco Cessation Education Requested by Patient: No Hx Alcohol Use: No Hx Substance Use: No Preferred Language: Bulgarian Communication Ability: Effective Refrigeration System Installer Required: No Beliefs That Will Affect Care: None marital status: Single Current Living Situation: Spouse Current Living Situation Comment: lives at home with current occupational status: employed 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 renal function CBC UA protein to creatinine ratio. also reviewed renal ultrasound liver ultrasound chest x-ray.
--- NOTE | 2024-03-30 12:41 | CT Scan Report ---
CT chest diagnostic wo con CT DOSE: 771.18 mGy.cm HISTORY: Abnormal chest x-ray. Follow-up. multifocal pneumonia TECHNIQUE: Multiaxial CT images of the chest were performed without contrast. A dose lowering techni que was utilized adhering to the principles of ALARA. COMPARISON: Chest x-ray 03/29/2024. Chest CT 07/24/2010. FINDINGS: The central airways are patent. No pneumothorax. No pleural effusions. Multiple irregular a irspace opacities seen within the bilateral mid to lower lung zones demonstrating a peripheral and ba silar distribution. These demonstrate both groundglass and consolidative components. These findings f avor an atypical/viral pneumonitis and could be related to Covid pneumonia. No acute fractures within the chest. Limited views of the upper abdomen demonstrate normal liver, spleen, and adrenal glands. Normal esophagus. No pericardial effusion. The heart is normal in size. Normal caliber thoracic aorta . The multiple prominent mediastinal and bilateral hilar lymph nodes. These are likely reactive. Ther e are are a few prominent bilateral axillary lymph nodes also noted. IMPRESSION: 1. Multiple irregular airspace opacities seen within the bilateral mid to lower lung zones demonstrat ing a peripheral and basilar distribution. These demonstrate both groundglass and consolidative compo nents. These findings favor an atypical/viral pneumonitis and could be related to Covid pneumonia. 2. Multiple prominent mediastinal, hilar, and axillary lymph nodes. These are indeterminate but could be reactive to the suspected infectious process. [address] follow-up recommended to ensure re solution. ACT 112: Negative or not required by law. Electronically signed by: Marcell uDncan M.D. 03/30/2024 12:39 PM
--- NOTE | 2024-03-30 12:45 | Electrocardiogram Report ---
Test Reason : Blood Pressure : / mmHG Vent. Rate : 093 BPM Atrial Rate : 093 BPM P-R Int : 142 ms QRS Dur : 082 ms QT Int : 366 ms P-R-T Axes : 052 009 095 degrees QTc Int : 455 ms Normal sinus rhythm Possible Left atrial enlargement Abnormal ECG Confirmed by Ryan Mccall ([id number]) on 03/30/2024 12:44:35 PM Referred By: Confirmed By:Gary Mccall
--- OUTSIDE RECORDS SUMMARY | 2024-03-30 13:07 | External Medical Summary | Summary of Care ---
Author Name Unknown Organization [facility] Address [address] [place] [address] Phone [phone] Care Team Providers Care Leaf Binner Name Role Phone Cinda Schneider MD Primary Care Prov ider Reason for Visit * Reason Comments Outpatient Testing Encounter Details Date Type Department Care Team (Late st Contact Info) Description 03/29/2024 11:30 AM EDT Laboratory Laboratory, [facility] [address] [place] [address] [facility] [address] [place] [address] Arrived Allergies Active Allergy Reactions Criticality Noted Date Comments Amoxicillin Hives 02/07/2014 Nsaids Edema face/lips/tongue High 02/07/2014 Penicillins Hives 02/07/2014 documented as of this encounter (statuses as of 03/29/2024) Medications Medication Sig Dispensed Refills Start Date End Date Status levothyroxine (LEVOXYL) 175 MCG Tablet Take 175 mcg by mouth daily. 3 12/24/2016 Active levoFLOXacin 750 MG Oral Tablet (Levaquin)Indications :Abnormal chest x-ray Take 1 Tablet by mouth every other day. until gone. 5 Tablet 03/29/2024 Active amLODIPine Besylate 10 MG Oral Tablet (Norvasc)Indications: Hypertension goal BP (blood pressure) < 140/90 Take 0.5 Tablets by mouth in the morning. 30 Tablet 5 03/29/2024 Active documented as of this encounter (statuses as of 03/29/2024) Active Problems Problem Noted Date Diagnosed Date Rib pain on right side 03/27/2024 Costochondritis 03/27/2024 documented as of this encounter (statuses as of 03/29/2024) Social History Tobacco Use Types Packs/Day Years Used Date Smoking Tobacco: Never Smokeless Tobacco: Never Alcohol Use Standard Drinks/Week Comments Yes 0 (1 standard drink = 0.6 oz pur e alcohol) 2 beers a month Utilities Answer Date Recorded Do you have trouble paying y our heating, water, or electric bill? (Adult - for ages 18 years and over) Not on file 03/06/2024 Is your family able to pay t he heat, water, or electric bill? (Household - for ages 0-17 years) Not on file 03/06/2024 Does your family have access to good internet? (Household - for ages 0-17 years) Not on file 03/06/2024 Social Connections Answer Date Recorded How often do you feel lonely or isolated from those around you? (Adult - for ages 18 years and over) Not on file 03/06/2024 Sex and Gender Information Value Date Recorded Sex Assigned at Not on file Gender Identity Not on file Sexual Orientation Not on file Job Start Date Occupation Industry Not on file Not on file Not on file documented as of this encounter Plan of Treatment Upcoming Encounters Date Type Department Care Team (Late st Contact Info) Description 04/27/2024 8:20 AM EDT Office Visit Family Practice [facility] [address] [place] [address] Sonya Dacosta MD [address] [place] [address] 06/28/2024 8:30 AM EDT Imaging Cardiac Studies, [facility] [address] [facility] [place] [id number] Health Maintenance Due Date Last Done Comments Depression Screening 1982 DTaP,Tdap,and Td Vaccines (1 - Tdap) 1989 Hepatitis B Vaccine (1 of 3 - 19+ 3-dose series) 1989 Cologuard 11/26/2015 Colonoscopy 11/26/2015 Colorectal Cancer Screening 11/26/2015 Fecal Occult Blood Test 11/26/2015 Sigmoidoscopy 11/26/2015 Zoster Vaccines (1 of 2) 2020 COVID-19 Vaccine (1 - 2022-2 4 season) 2023 Influenza Vaccine (FLU shot) (#1) 2024 07/04/2013, 07/24/2012 TSH 03/27/2025 03/27/2024 Diabetes Screening 03/27/2027 03/27/2024, 03/27/2024, 04/06/1997 Lipid Panel 03/27/2029 03/27/2024 HIV Screening Completed 03/27/2024 Hepatitis C Screening Completed 03/27/2024 , 03/27/2024, 03/27/2024 HPV (Gardasil) Vaccine Aged Out No lo nger eligible based on patient's age to complete this topic MENINGOCOCCAL (MENACTRA/MENVEO) Aged Out No longer eligible b ased on patient's age to complete this topic Pneumococcal Vaccine: Pediatrics (0 to 5 Years) and At-Risk Patients (6 to 64 Years) Aged Out No longer eligible b ased on patient's age to complete this topic documented as of this encounter Medical Devices Not on filedocumented as of this encounter Care Teams Leaf Binner Relationship Specialty Start Date End Date Cinda Schneider MD [address] [place] [address] [place] [id number] PCP - General Family Medicine 03/27/24 documented as of this encounter
--- OUTSIDE RECORDS SUMMARY | 2024-03-30 13:08 | External Medical Summary ---
Author Name Unknown Address Unknown Organization [id number] - [address] [place] [address] Laboratory Report Ordering Provider Test Date Status SARA LOGAN 03/27/2024 09:15:53 Final Observation Date Value Abnormality Reference (Units ) Status TANIAMEME SPECIMEN-LAV 03/27/2024 09:15:53 Freezing of extracted DNA, whole blood and/or serum. Final Performing Location [facility] - [address] [place] [address]
--- OUTSIDE RECORDS SUMMARY | 2024-03-30 13:08 | External Medical Summary ---
Author Name Unknown Address Unknown Organization [id number]:[facility] [place] - [address] [facility] [address] Laboratory Report Ordering Provider Test Date Status GABRIELLA TAN 03/27/2024 09:15:53 Final Observation Date Value Abnormality Reference (Units ) Status HbA1C 03/27/2024 09:15:53 5.2 4.0-5.6 (% ) Final The use of HbA1c to monitor glycemic status is based on normal hemoglobin and HbA composition. This test should not be used in patients with abnormal hemoglobin that affects the half life of the red blood cell or the in vivo glycation rates. Glucose, estimated average 03/27/2024 09:15:53 103 <126 (mg/dL) Final Performing Location [facility] [place] - [address] [facility] [address]
--- OUTSIDE RECORDS SUMMARY | 2024-03-30 13:08 | External Medical Summary ---
Author Name Unknown Address Unknown Organization [id number] [place] [address] [place] [address] Laboratory Report Ordering Provider Test Date Status SARA LOGAN 03/27/2024 09:15:53 Final Observation Date Value Abnormality Reference (Units ) Status MYCODE SPECIMEN-SST 03/27/2024 09:15:53 Freezing of extracted DNA, whole blood and/or serum. Final Performing Location [facility] [place] [address] [place] [address]
--- OUTSIDE RECORDS SUMMARY | 2024-03-30 13:08 | External Medical Summary | Summary of Care ---
Author Name Unknown Organization [facility] Address [address] [place] [address] Phone [phone] Care Team Providers Care Lay Out Machine Operator Name Role Phone Cinda Schneider MD Primary Care Prov ider Reason for Visit * Reason Onset Date Comments MyCode Consent 03/27/2024 Encounter Details Date Type Department Care Team (Late st Contact Info) Description 03/27/2024 Orders Only Outcomes Research Department [address], [place] [id number] Laura Bradford CHRA MyCode Research Other*[id number]* Allergies Active Allergy Reactions Criticality Noted Date Comments Amoxicillin Hives 02/07/2014 Nsaids Edema face/lips/tongue High 02/07/2014 Penicillins Hives 02/07/2014 documented as of this encounter (statuses as of 03/27/2024) Medications Medication Sig Dispensed Refills Start Date End Date Status levothyroxine (LEVOXYL) 175 MCG Tablet Take 175 mcg by mouth daily. 3 12/24/2016 Active documented as of this encounter (statuses as of 03/27/2024) Social History Tobacco Use Types Packs/Day Years [...] on file documented as of this encounter Progress Notes * Laura Bradford CHRA - 03/27/2024 8:11 AM EDT MyCode Consent Documentation Fly De Luna provided consent/authorization to participate in the [employer]. documented in this encounter Plan of Treatment Scheduled Orders Name Type Priority Associated Diagnoses Orde r Schedule MYCODE INITIAL ADULT Lab Routine MyCode Research Other*[id number] Expected: 03/27/2024 (Approximate), Expires: 04/16/2025 Health Maintenance Due Date Last Done Comments Lipid Panel 1970 Depression Screening 1982 HIV Screening 1985 Hepatitis C Screening 1988 TSH 1988 DTaP,Tdap,and Td Vaccines (1 - Tdap) 1989 Hepatitis B Vaccine (1 of 3 - 19+ 3-dose series) 1989 Diabetes Screening 04/06/2000 04/06/1997 Cologuard 11/26/2015 Colonoscopy 11/26/2015 Colorectal Cancer Screening 11/26/2015 Fecal Occult Blood Test 11/26/2015 Sigmoidoscopy 11/26/2015 Zoster Vaccines (1 of 2) 2020 COVID-19 Vaccine ( - 2022-2 4 season) 2023 Influenza Vaccine (FLU shot) (#1) 2024 07/04/2013, 07/24/2012 HPV (Gardasil) Vaccine Aged Out No lo [...] Not on filedocumented as of this encounter Visit Diagnoses Diagnosis MyCode Research Other*[id number]- Primary documented in this encounter Care Teams Lay Out Machine Operator Relationship Specialty Start Date End Date Cinda Schneider MD [address] [place] [address] [place] [id number] PCP - General Family Medicine 03/27/24 documented as of this encounter
--- OUTSIDE RECORDS SUMMARY | 2024-03-30 13:08 | External Medical Summary ---
Author Name Unknown Address Unknown Organization [id number]:LABORATORY [facility] [place] - [address] [facility] [address] Laboratory Report Ordering Provider Test Date Status GABRIELLA TAN 03/27/2024 09:15:53 Final Observation Date Value Abnormality Reference (Units ) Status BUN 03/27/2024 09:15:53 25 Above high normal 6-20 (mg/dL) Final Creatinine 03/27/2024 09:15:53 2.4 Above high normal 0.6-1.2 (mg/dL) Final Glomerular filtration rate/1.73 sq M.predicted [Volume Rate/Area] in Serum, Plasma or Blood by Creatinine-based formula (CKD-EPI) 03/27/2024 09:15:53 31 Below low normal >=60 (mL/min) Final eGFR is calculated based on the CKD-EPI 2020 equation Sodium 03/27/2024 09:15:53 138 135-146 (m mol/L) Final Potassium 03/27/2024 09:15:53 4.3 3.5-5.1 (m mol/L) Final Cl 03/27/2024 09:15:53 99 98-107 (mm ol/L) Final CO2 03/27/2024 09:15:53 27 22-32 (mmo l/L) Final Anion gap 03/27/2024 09:15:53 12 7-15 (mmol /L) Final Glucose 03/27/2024 09:15:53 109 70-120 (mg /dL) Final Albumin 03/27/2024 09:15:53 4.0 3.8-5.0 (g /dL) Final AST (Aspartate aminotransferase) 03/27/2024 09:15:53 40 10-50 (U/L) Fin al Alk Phos 03/27/2024 09:15:53 53 35-130 (U/ L) Final Bilirubin, Total 03/27/2024 09:15:53 2.2 Above high no rmal <=1.2 (mg/dL) Final Calcium 03/27/2024 09:15:53 9.2 8.4-10.2 ( mg/dL) Final Protein 03/27/2024 09:15:53 6.5 6.0-8.3 (g /dL) Final ALT (Alanine aminotransferase) 03/27/2024 09:15:53 21 10-50 (U/L) Alexy davis Performing Location LABORATORY [facility] [place] - [address] [facility] [address]
--- OUTSIDE RECORDS SUMMARY | 2024-03-30 13:08 | External Medical Summary ---
Author Name Unknown Address Unknown Organization [id number]:[place] [facility] [place] [address] [place] [address] Laboratory Report Ordering Provider Test Date Status GABRIELLA TAN 03/27/2024 09:15:53 Final Observation Date Value Abnormality Reference (Units ) Status Triglyceride 03/27/2024 09:15:53 316 Above high normal <=174 (mg/dL) Final Triglyceride Reference Range s (mg/dL):
<150 Acceptable
150-174 Borderline high
175-499 High
>=500 Very high Cholesterol 03/27/2024 09:15:53 144 <200 (mg /dL) Final Total Cholesterol Reference Ranges (mg/dL):
<200 Desirable
200-239 Borderline high
>=240 High HDL 03/27/2024 09:15:53 27 Below low normal >39 (mg/dL) Final HDL Cholesterol Reference Ra nges (mg/dL):
>=60 High (Desirable)
<50 Low (Undesirable) For Females
<40 Low (Undesirable) For Males NON-HDL CHOLESTEROL 03/27/2024 09:15:53 117 <=159 (mg/dL) Final Non-HDL Cholesterol Referenc e Range (mg/dL):
<100 Target level for high risk ASCVD patient
<130 Optimal for general population
130-159 Near optimal for general population
160-189 Borderline High
190-219 High
>=220 Very High Performing Location [place] [facility] [place] [address] [place] [address]
--- OUTSIDE RECORDS SUMMARY | 2024-03-30 13:08 | External Medical Summary ---
Author Name Unknown Address Unknown Organization [id number]:LABORATORY [facility] [place] - [address] [place] [address] Laboratory Report Ordering Provider Test Date Status SARA LOGAN 03/27/2024 09:15:53 Final Observation Date Value Abnormality Reference (Units ) Status MYCODE SPECIMEN-SST 03/27/2024 09:15:53 Freezing of extracted DNA, whole blood and/or serum. Final Performing Location LABORATORY [facility] [place] - [address] [place] [address]
--- OUTSIDE RECORDS SUMMARY | 2024-03-30 13:08 | External Medical Summary | Summary of Care ---
Author Name Unknown Organization [facility] Address [address] [place] [address] Phone [phone] Care Team Providers Care Die Sinker Apprentice Name Role Phone Cinda Schneider MD Primary Care Prov ider Reason for Referral * Precert (Within 10 days (routine)) - Pending Review Specialty Diagnoses / Procedures Referred By Contac t Referred To Contact Cardiac Studies Diagnoses Hypertension goal BP (blood pressure) < 140/90 Procedures ECHO, STRESS (EXERCISE) W/ PHYSICIAN Cinda Schneider MD [address] [place] [address] [place] [address] Referral ID Status Reason Start Date Expiration Date Visits Requested Visits Authorized [id number] Pending Review Precert 03/27/2024 999 999 Reason for Visit * Reason Comments Follow Up Encounter Details Date Type Department Care Team (Latest Contact Info) Description 03/27/2024 8:20 AM EDT Office Visit Family Medicine [address] [place] [address] Cinda Schneider MD [address] [place] [address] [place] [phone] Hypertension goal BP (blood pressure) < 140/90*; Screening for cardiovascular condition; Peripheral polyneuropathy; Muscle stiffness; Special screening examination for viral and chlamydial disease; Rib pain on right side Allergies Active Allergy Reactions Criticality Noted Date Comments Amoxicillin Hives 02/07/2014 Nsaids Edema face/lips/tongue High 02/07/2014 Penicillins Hives 02/07/2014 documented as of this encounter (statuses as of 03/27/2024) Medications Medication Sig Dispensed Refills Start Date End Date Status levothyroxine (LEVOXYL) 175 MCG Tablet Take 175 mcg by mouth daily. 3 12/24/2016 Active hydroCHLOROthiazide 25 MG Oral Tablet (Hydrodiuril)Indicati ons:Hypertension goal BP (blood pressure) < 140/90 Take 1 Tablet by mouth in the morning. 30 Tablet 5 03/27/2024 Active documented as of this encounter (statuses as of 03/27/2024) Active Problems Problem Noted Date Diagnosed Date [...] on file documented as of this encounter Last Filed Vital Signs Vital Sign Reading Time Taken Comments Blood Pressure 200/100 03/27/2024 8:15 AM EDT Pulse 88 03/27/2024 8:15 AM EDT Temperature 36.6 C (97.8 F) 03/27/2024 8:15 AM ED T Respiratory Rate 16 03/27/2024 8:15 AM EDT Oxygen Saturation 95% 03/27/2024 8:15 AM EDT Inhaled Oxygen Concentration - - Weight 108.9 kg (240 lb) 03/27/2024 8:15 AM EDT Height 188 cm (6' 2") 03/27/2024 8:15 AM EDT Body Mass Index 30.81 03/27/2024 8:15 AM EDT documented in this encounter Progress Notes * Cinda Schneider MD - 03/27/2024 8:42 AM EDT Subjective Fly De Luna is a 53 year old male. No chief complaint on file. HPI: Here to establish. Multiple concerns. Had a fall a couple years ago and had problems stemming from that. Right rib pain. Cough, productive. Nonsmoker. No h/o asthma. Has h/o hypothyroidism. H/o hypertension, but stopped lisinopril due to muscle stiffness, but stiffness persisted. Swelling of hands, muscles in forearms and calves feel tight. PMH: Patient Active Problem List Diagnosis Rib pain on right side Costochondritis Current Outpatient Medications Medication Sig Dispense Refill levothyroxine (LEVOXYL) 175 MCG Tablet Take 175 mcg by mouth daily. 3 hydroCHLOROthiazide 25 MG Oral Tablet (Hydrodiuril) Take 1 Tablet by mouth in the morning. 30 Tablet 5 No current facility-administered medications for this visit. Review of patient's allergies indicates: Allergen Reactions Nsaids Edema face/lips/tongue Amoxicillin Hives Penicillins Hives Objective BP 200/100 | Pulse 88 | Temp 36.6 C (97.8 F) | Resp 16 | Ht 1.88 m (6' 2") | Wt 108.9 kg (240 lb) | SpO2 95% | BMI 30.81 kg/m | BSA 2.38 m Physical Exam Constitutional: Appearance: Normal appearance. HENT: Head: Normocephalic. Cardiovascular: Rate and Rhythm: Normal rate and regular rhythm. Pulses: Normal pulses. Pulmonary: Effort: Pulmonary effort is normal. Breath sounds: Normal breath sounds. Abdominal: Palpations: Abdomen is soft. Musculoskeletal: General: Swelling present. Normal range of motion. Cervical back: Normal range of motion and neck supple. Comments: Swelling of fingers bilat Skin: General: Skin is warm and dry. Neurological: General: No focal deficit present. Mental Status: He is alert and oriented to person, place, and time. Psychiatric: Mood and Affect: Mood normal. ASSESSMENT/PLAN: Hypertension goal BP (blood pressure) < 140/90 (Primary) - COMPREHENSIVE METABOLIC PANEL; Future; Expected date: 03/27/2024 - LIPID PANEL WITH DIRECT LDL IF TG IS HIGH; Future; Expected date: 03/27/2024 - HEMOGLOBIN A1C; Future; Expected date: 03/27/2024 - TSH WITH FREE T4 IF INDICATED; Future; Expected date: 03/27/2024 - hydroCHLOROthiazide 25 MG Oral Tablet (Hydrodiuril); Take 1 Tablet by mouth in the morning. - EKG; Future; Expected date: 03/27/2024 - EKG - ECHO, STRESS (EXERCISE) W/ PHYSICIAN; Future; Expected date: 03/27/2024 Screening for cardiovascular condition - COMPREHENSIVE METABOLIC PANEL; Future; Expected date: 03/27/2024 - LIPID PANEL WITH DIRECT LDL IF TG IS HIGH; Future; Expected date: 03/27/2024 - HEMOGLOBIN A1C; Future; Expected date: 03/27/2024 - TSH WITH FREE T4 IF INDICATED; Future; Expected date: 03/27/2024 Peripheral polyneuropathy Muscle stiffness - COMPREHENSIVE METABOLIC PANEL; Future; Expected date: 03/27/2024 Special screening examination for viral and chlamydial disease - HEPATITIS C ANTIBODY SCREEN WITH PROGRESSION TO HEPATITIS C RNA QUANTITATIVE; Future; Expected date: 03/27/2024 - HIV ANTIGEN & ANTIBODY SCREEN W/ CONFIRMATION; Future; Expected date: 03/27/2024 - HEPATITIS B SURFACE ANTIBODY; Future; Expected date: 03/27/2024 Rib pain on right side - XR RIBS BILATERAL AND PA CHEST MINIMUM 4 VIEWS Follow Up: Return in about 4 weeks (around 04/24/2024) for Return with Physician. 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 Recommend stress echo. Cinda Zafar MD documented in this encounter Nursing Notes * Tamica Kaiser RN - 03/27/2024 8:14 AM EDT New patient to establish BP 200/100 Pt gets swelling in his hands since August, having trouble feeling things with his finger tips, and fingers get cold off and on, arms feel stiff, Gets tender spots all over his body, mostly in rib area Last week his legs felt very weak while he was walking up a hill, he did not fall he was not SOB. He states this has happened a couple times over past few months Pt states he fell a few years ago and broke some ribs, he has been going down hill since Gets a lot of congestion in am, coughs out white mucous Will req records, pt thinks he is up to date on vaccines, declines colonoscopy at this time documented in this encounter Plan of Treatment Pending Results Name Type Priority Associated Diagnoses Date /Time COMPREHENSIVE METABOLIC PANEL Lab Routine Hypertension goal BP (blood pressure) < 140/90 Screening for cardiovascular condition Muscle stiffness 03/27/2024 9:15 AM EDT LIPID PANEL WITH DIRECT LDL IF TG IS HIGH Lab Routine Hypertension goal BP (blood pressure) < 140/90 Screening for cardiovascular condition 03/27/2024 9:15 AM EDT HEMOGLOBIN A1C Lab Routine Hypertension goal BP (blood pressure) < 140/90 Screening for cardiovascular condition 03/27/2024 9:15 AM EDT TSH WITH FREE T4 IF INDICATED Lab Routine Hypertension goal BP (blood pressure) < 140/90 Screening for cardiovascular condition 03/27/2024 9:15 AM EDT HEPATITIS C ANTIBODY SCREEN WITH PROGRESSION TO HEPATITIS C RNA QUANTITATIVE Lab Routine Special screening examination for viral and chlamydial disease 03/27/2024 9:15 AM EDT HIV ANTIGEN & ANTIBODY SCREEN W/ CONFIRMATION Lab Routine Special screening examination for viral and chlamydial disease 03/27/2024 9:15 AM EDT HEPATITIS B SURFACE ANTIBODY Lab Routine Special screening examination for viral and chlamydial disease 03/27/2024 9:15 AM EDT XR RIBS BILATERAL AND PA CHEST MINIMUM 4 VIEWS Medical Imaging Routine Rib pain on right side 03/27/2024 9:12 AM EDT Scheduled Orders Name Type Priority Associated Diagnoses Orde r Schedule COMPREHENSIVE METABOLIC PANEL Lab Routine Hypertension goal BP (blood pressure) < 140/90 Screening for cardiovascular condition Muscle stiffness Expected: 03/27/2024 (Approximate), Expires: 03/27/2025 LIPID PANEL WITH DIRECT LDL IF TG IS HIGH Lab Routine Hypertension goal BP (blood pressure) < 140/90 Screening for cardiovascular condition Expected: 03/27/2024, Expires: 03/27/2025 HEMOGLOBIN A1C Lab Routine Hypertension goal BP (blood pressure) < 140/90 Screening for cardiovascular condition Expected: 03/27/2024 (Approximate), Expires: 03/27/2025 TSH WITH FREE T4 IF INDICATED Lab Routine Hypertension goal BP (blood pressure) < 140/90 Screening for cardiovascular condition Expected: 03/27/2024 (Approximate), Expires: 03/27/2025 HEPATITIS C ANTIBODY SCREEN WITH PROGRESSION TO HEPATITIS C RNA QUANTITATIVE Lab Routine Special screening examination for viral and chlamydial disease Expected: 03/27/2024 (Approximate), Expires: 03/27/2025 HIV ANTIGEN & ANTIBODY SCREEN W/ CONFIRMATION Lab Routine Special screening examination for viral and chlamydial disease Expected: 03/27/2024 (Approximate), Expires: 03/27/2025 HEPATITIS B SURFACE ANTIBODY Lab Routine Special screening examination for viral and chlamydial disease Expected: 03/27/2024 (Approximate), Expires: 03/27/2025 EKG EKG Routine Hypertension goal BP (blood pressure) < 140/90 Expected: 03/27/2024 (Approximate), Expires: 04/27/2025 ECHO, STRESS (EXERCISE) W/ PHYSICIAN Echocardiology Routine Hypertension goal BP (blood pressure) < 140/90 Expected: 03/27/2024, Expires: 04/27/2025 Health Maintenance Due Date Last Done Comments [...] as of this encounter Visit Diagnoses Diagnosis Hypertension goal BP (blood pressure) < 140/90- Primary Unspecified essential hypertension Screening for cardiovascular condition Screening for other and unspecified cardiovascular conditions Peripheral polyneuropathy Unspecified hereditary and idiopathic peripheral neuropathy Muscle stiffness Unspecified disorder of muscle, ligament, and fascia Special screening examination for viral and chlamydial disease Rib pain on right side Chest pain, unspecified documented in this encounter Care Teams Die Sinker Apprentice Relationship Specialty Start Date End Date Cinda Schneider MD [address] [place] [address] K[place] Vallada[place] [id number] PCP - General Family Medicine 03/27/24 documented as of this encounter
--- OUTSIDE RECORDS SUMMARY | 2024-03-30 13:08 | External Medical Summary ---
Author Name Unknown Address Unknown Organization [id number]:LAB[facility]ATORY [facility] [place] - [facility] [address] [facility] [address] Laboratory Report Ordering Provider Test Date Status GABRIELLA TAN 03/27/2024 09:15:53 Final Observation Date Value Abnormality Reference (Units ) Status HIV 1+2 Ab+HIV1 p24 Ag [Presence] in Serum or Plasma by Immunoassay 03/27/2024 09:15:53 Negative Negative Final Negative HIV-1/2 antigen and antibody screening tset results usually indicate the absence of HIV-1 and HIV-2 infection. However, such negative results do not rule-out acute HIV infection. If acute HIV-1 infection is highly suspected, it is recommended that a specimen be submitted for detection of HIV-1 RNA. Performing Location LABORATORY [facility] [place] - [address] [place] [address]
--- OUTSIDE RECORDS SUMMARY | 2024-03-30 13:08 | External Medical Summary ---
Author Name Unknown Address Unknown Organization K01:LABORATORY [facility] [place] - [address] [place] [address] [place] [address] Laboratory Report Ordering Provider Test Date Status GABRIELLA TAN 03/27/2024 09:15:53 Final Observation Date Value Abnormality Reference (Units ) Status TSH 03/27/2024 09:15:53 18.10 Above high normal 0. 27-4.20 (uIU/mL) Final Performing Location LABORATORY [facility] [place] - [address] [place] [address]
--- OUTSIDE RECORDS SUMMARY | 2024-03-30 13:08 | External Medical Summary ---
Author Name Unknown Address Unknown Organization K0G:LABORATORY [facility] [address] - [address] [place] [address] Laboratory Report Ordering Provider Test Date Status GABRIELLA TAN 03/29/2024 11:31:56 Final Observation Date Value Abnormality Reference (Units ) Status SYNC LEUKOCYTES IN BLOOD BY AUTOMATED COUNT 03/29/2024 11:31:56 8.90 4.00-10.80 (K/uL) Final Segs 03/29/2024 11:31:56 75.9 Above high normal 40.0-75.0 (%) Final Lymphs % 03/29/2024 11:31:56 10.1 Below low normal 18.0-42.0 (%) Final Monos 03/29/2024 11:31:56 11.1 Above high normal 1.0-11.0 (%) Final Eosinophils 03/29/2024 11:31:56 2.1 0.0-6.0 (%) Final Basos 03/29/2024 11:31:56 0.8 0.0-2.0 (%) Final Absolute Segs 03/29/2024 11:31:56 6.75 1.80-7.70 (K/uL) Final Lymphs, absolute 03/29/2024 11:31:56 0.90 Below low normal 1.00-4.80 (K/ul) Final Monos, Abs 03/29/2024 11:31:56 0.99 0.00-1.10 (K/uL) Final Eos, Abs 03/29/2024 11:31:56 0.19 0.00-0.70 (K/uL) Final Basos, Abs 03/29/2024 11:31:56 0.07 0.00-0.20 (K/uL) Final Performing Location LABORATORY [facility] [address] [place] [address]
--- OUTSIDE RECORDS SUMMARY | 2024-03-30 13:08 | External Medical Summary | Summary of Care ---
Author Name Unknown Organization [facility] Address [address] [place] [address] Phone [phone] Care Team Providers Care Pattern Gater Name Role Phone Cinda Schneider MD Primary Care Prov ider Reason for Referral * Precert (Within 10 days (routine)) - Pending Review Specialty Diagnoses / Procedures Referred By Contac t Referred To Contact Cardiac Studies Diagnoses Hypertension goal BP (blood pressure) < 140/90 Procedures ECHO, STRESS (EXERCISE) W/ PHYSICIAN Cinda Schneider MD [address] [place] [address] [place] [id number] Referral ID Status Reason Start Date Expiration Date Visits Requested Visits Authorized [id number] Pending Review Precert 03/27/2024 999 999 Reason for Visit * Reason Comments Follow Up Encounter Details Date Type Department Care Team (Latest Contact Info) Description 03/27/2024 8:20 AM EDT Office Visit Family Medicine [address] [place] [address] Cinda Schneider MD [address] [place] [address] [place] [id number] Hypertension goal BP (blood pressure) < 140/90*; [...] - with me / [place] OR IN [facility] (Dr Sonya Hough) Low sodium diet Start HCTZ Labs as above Follow up in 1 month 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 Recommend stress echo. Cinda Zafar MD documented in this encounter Procedure Notes * Marcel Infante DO - 03/27/2024 9:11 AM EDTAssociated Order(s): EKG REASON FOR STUDY: elevbp CONCLUSIONS: Normal sinus rhythm Possible Left atrial enlargement Cannot rule out Septal infarct , age undetermined Abnormal ECG Ventricular Rate: 81 Atrial Rate: 81 MI Interval: 144 QRS Duration: 80 QT/QTc: 362/420 ms P-R-T Clint: 60 : 43 : 72 degrees documented in this encounter Nursing Notes * [...] at this time documented in this encounter Miscellaneous Notes * Pt Handout (on AVS) - Tamica Kaiser RN - 03/27/2024 10:36 AM EDT Images from the original note were not included. [id number] Low-Salt Diet This diet removes foods that are high in salt. It also limits the amount of salt you use when cooking. It is most often used for people with high blood pressure, fluid retention (edema), and kidney, liver, or heart disease. Table salt has the mineral sodium. Your body needs sodium to work normally. But too much sodium canmake your health problems worse. Your healthcare provider advises a low-salt (low-sodium) diet for you. Your total daily allowed amount of salt is 1,500 to 2,300 milligrams (mg). This is less than 1 teaspoon of table salt. This means you can have only about 500 to 700 mg of sodium at each meal. People with certain health problems should limit salt intake to the lower end of the advised range. When you cook, don?t add much salt. If you can cook without using salt, even better. Don?t add saltto your food at the table. Use herbs and spices to flavor your food. When shopping, read food labels. Salt is often called sodium on the label. Choose foods that are salt-free, low salt, or very low salt. Note that foods with reduced salt may not lower your salt intake enough. Beans, legumes, and nuts OK: Dry beans, split peas, lentils, canned beans with no added salt, and unsalted nuts Avoid: Regular (salt added) canned beans and salted nuts Breads and grains OK: Low-sodium breads, rolls, cereals, cakes, low-salt crackers, matzo crackers, oats, rice, pasta with no salt added, and unsalted popcorn Avoid: Salted crackers, pretzels, tortilla chips, popcorn, and other salty snacks, as well as Luxembourgish toast, pancakes, muffins, regular bread, instant oatmeal packets, and prepackaged seasoned rice orpasta blends Dairy OK: Milk, chocolate milk, hot chocolate mix, low-salt cheeses, and yogurt Avoid: Processed cheese and cheese spreads, Roquefort, Camembert, cottage cheese, buttermilk, and instant breakfast drinks Desserts OK: Ice cream, frozen yogurt, juice bars, gelatin, sugar, honey, jelly, and hard candy (though be mindful of added sugars in these foods) Avoid: Most pies, cakes, and cookies made with salt, and instant pudding Drinks OK: Tea, coffee, fizzy (carbonated) drinks, and juices Avoid: Flavored coffees, electrolyte replacement drinks, and sports drinks Meats OK: All fresh meat, fish, poultry, low-salt tuna, eggs, and egg substitute Avoid: Smoked, pickled, brine-cured, or salted meats and fish, and processed poultry injected with salt or marinade (this includes alonso, chipped beef, jerky, corned beef, hot dogs, deli meats, ham, kosher meats, salt pork, sausage, canned tuna, salted codfish, smoked salmon, zapata, sardines, andanchovies) Seasonings OK: Most seasonings are okay and good substitutes for salt include fresh herb blends, hot sauce, lemon, garlic, jefefrson, vinegar, dry mustard, parsley, cilantro, horseradish, tomato paste, low-salt mayonnaise, unsalted butter and margarine, cream cheese, vegetable and olive oil, cream, low-salt saladdressing, and gravy Avoid: Regular ketchup, relishes, pickles, soy sauce, teriyaki sauce, Worcestershire sauce, BBQ sauce, tartar sauce, meat tenderizer, chili sauce, regular gravy, regular salad dressing, and salted butter Soups OK: Low-salt soups and broths made with allowed foods Avoid: Bouillon cubes, soups with smoked or salted meats, and regular soup and broth Vegetables OK: Most vegetables are okay, including canned vegetables with no salt added, plain frozen vegetables, and low-salt tomato and vegetable juices Avoid: Sauerkraut and other brined vegetables, pickles and pickled vegetables, tomato juice, olives, canned vegetables with salt, frozen vegetables with sauces, and salted potato chips Last Reviewed Date: 03/19/202219994540-7976 [employer]. All rights reserved. This information is not intended as a substitute for professional medical care. Always follow your healthcare professional's instructions. * Pt Handout (on AVS) - Tamica Kaiser RN - 03/27/2024 10:36 AM EDT Images from the original note were not included. [id number] Low-Salt Diet This diet removes foods that are high in salt. It also limits the amount of salt you use when cooking. It is most often used for people with high blood pressure, fluid retention (edema), and kidney, liver, or heart disease. Table salt has the mineral sodium. Your body needs sodium to work normally. But too much sodium canmake your health problems worse. Your healthcare provider advises a low-salt (low-sodium) diet for you. Your total daily allowed amount of salt is 1,500 to 2,300 milligrams (mg). This is less than 1 teaspoon of table salt. This means you can have only about 500 to 700 mg of sodium at each meal. People with certain health problems should limit salt intake to the lower end of the advised range. When you cook, don?t add much salt. If you can cook without using salt, even better. Don?t add saltto your food at the table. Use herbs and spices to flavor your food. When shopping, read food labels. Salt is often called sodium on the label. Choose foods that are salt-free, low salt, or very low salt. Note that foods with reduced salt may not lower your salt intake enough. Beans, legumes, and nuts OK: Dry beans, split peas, lentils, canned beans with no added salt, and unsalted nuts Avoid: Regular (salt added) canned beans and salted nuts Breads and grains OK: Low-sodium breads, rolls, cereals, cakes, low-salt crackers, matzo crackers, oats, rice, pasta with no salt added, and unsalted popcorn Avoid: Salted crackers, pretzels, tortilla chips, popcorn, and other salty snacks, as well as Luxembourgish toast, pancakes, muffins, regular bread, instant oatmeal packets, and prepackaged seasoned rice orpasta blends Dairy OK: Milk, chocolate milk, hot chocolate mix, low-salt cheeses, and yogurt Avoid: Processed cheese and cheese spreads, Roquefort, Camembert, cottage cheese, buttermilk, and instant breakfast drinks Desserts OK: Ice cream, frozen yogurt, juice bars, gelatin, sugar, honey, jelly, and hard candy (though be mindful of added sugars in these foods) Avoid: Most pies, cakes, and cookies made with salt, and instant pudding Drinks OK: Tea, coffee, fizzy (carbonated) drinks, and juices Avoid: Flavored coffees, electrolyte replacement drinks, and sports drinks Meats OK: All fresh meat, fish, poultry, low-salt tuna, eggs, and egg substitute Avoid: Smoked, pickled, brine-cured, or salted meats and fish, and processed poultry injected with salt or marinade (this includes alonso, chipped beef, jerky, corned beef, hot dogs, deli meats, ham, kosher meats, salt pork, sausage, canned tuna, salted codfish, smoked salmon, zapata, sardines, andanchovies) Seasonings OK: Most seasonings are okay and good substitutes for salt include fresh herb blends, hot sauce, lemon, garlic, jefferson, vinegar, dry mustard, parsley, cilantro, horseradish, tomato paste, low-salt mayonnaise, unsalted butter and margarine, cream cheese, vegetable and olive oil, cream, low-salt saladdressing, and gravy Avoid: Regular ketchup, relishes, pickles, soy sauce, teriyaki sauce, Worcestershire sauce, BBQ sauce, tartar sauce, meat tenderizer, chili sauce, regular gravy, regular salad dressing, and salted butter Soups OK: Low-salt soups and broths made with allowed foods Avoid: Bouillon cubes, soups with smoked or salted meats, and regular soup and broth Vegetables OK: Most vegetables are okay, including canned vegetables with no salt added, plain frozen vegetables, and low-salt tomato and vegetable juices Avoid: Sauerkraut and other brined vegetables, pickles and pickled vegetables, tomato juice, olives, canned vegetables with salt, frozen vegetables with sauces, and salted potato chips Last Reviewed Date: 03/19/202219991311-6026 [employer]. All rights reserved. This information is not intended as a substitute for professional medical care. Always follow your healthcare professional's instructions. * Pt Handout (on AVS) - Tamica Kaiser RN - 03/27/2024 10:35 AM EDT Images from the original note were not included. [id number] High Blood Pressure, New, Begin Treatment Your blood pressure was high enough today to start treatment with medicines. Often healthcare providers don?t know what causes high blood pressure (hypertension). But it can be controlled with lifestyle changes and medicines. High blood pressure usually has no symptoms. But it can sometimes cause he adache, dizziness, blurred vision, a rushing sound in your ears, chest pain, or shortness of breath. But even without symptoms, high blood pressure that?s not treated raises your risk for heart attack, heart failure, kidney disease, vascular disease, and stroke. High blood pressure is a serious health risk and shouldn?t be ignored. Blood pressure measurements are given as 2 numbers. Systolic blood pressure is the upper number. This is the pressure when the heart contracts. Diastolic blood pressure is the lower number. This is the pressure when the heart relaxes between beats. You will see your blood pressure readings written together. For example, a person with a systolic pressure of 118 and a diastolic pressure of 78 will have 118/78 written in the medical record. Blood pressure is categorized as normal, elevated, or stage 1 or stage 2 high blood pressure: Normal blood pressure is systolic of less than 120 and diastolic of less than 80 (120/80) Elevated blood pressure is systolic of 120 to 129 and diastolic less than 80 Stage 1 high blood pressure is systolic is 130 to 139 or diastolic between 80 to 89 Stage 2 high blood pressure is when systolic is 140 or higher or the diastolic is 90 or higher Home care If you have high blood pressure, do what's listed below to lower your blood pressure. If you are taking medicines for high blood pressure, these methods may reduce or end your need for medicines in the future. Begin a weight-loss program if you are overweight. Cut back on how much salt you get in your diet. Here?s how to do this: o Don?t eat foods that have a lot of salt. These include olives, pickles, smoked meats, and salted potato chips. o Don?t add salt to your food at the table. o Use only small amounts of salt when cooking. o Review food labels to track how much salt is in prepared foods. o When eating out, ask that no additional salt be added to your food order. o Ask your healthcare provider about the DASH diet or the DASH (dietary approaches to stop hypertension) eating plan. Start an exercise program. Talk with your healthcare provider about the type of exercise programthat would be best for you. It doesn't have to be hard. Even brisk walking is a good form of exercise. Don?t take medicines that have heart stimulants. This includes many whvz-les-iwzyosa cold and sinus decongestant pills and sprays, as well as diet pills. Check the warnings about high blood pressure on the label. Before purchasing any hopm-org-larmvhy medicines or supplements, always ask the phar macist about the product's potential interaction with your high blood pressure and your high blood pressure medicines. Stimulants, such as amphetamine or cocaine, could be lethal for someone with high blood pressure. Never take these. Limit how much caffeine you get in your diet. Switch to caffeine-free products. Stop smoking. If you are a long-time smoker, this can be hard. Enroll in a stop-smoking program to make it more likely that you will quit for good. Or, talk with your healthcare provider about nicotine replacements or medicines that can help. Learn how to handle stress. This is an important part of any program to lower blood pressure. Learn about relaxation methods like meditation, yoga, or biofeedback. If your provider prescribed medicines, take them exactly as directed. Missing doses may cause your blood pressure to get out of control. If you miss a dose or doses, check with your healthcare provider or pharmacist about what to do. Limit alcohol. Drinking too much alcohol can raise blood pressure. Men should have no more than 2 drinks a day. Women should have no more than 1. A drink is equal to 1 beer, or a small glass of wine, or a shot of liquor. Consider buying an automatic blood pressure machine so you can check your blood pressure regularly at home. Your provider can make a recommendation. You can get this at most pharmacies. The [place] [employer] recommends the following guidelines for home blood pressure monitoring: Don't smoke or drink coffee or other caffeinated drinks or exercise for 30 minutes before takingyour blood pressure. Go to the bathroom before the test. Relax for 5 minutes before taking the measurement. Sit with your back supported (don't sit on a couch or soft chair). Keep your feet on the floor uncrossed. Place your arm on a solid flat surface (like a table) with the upper part of the arm at heart level. Place the middle of the cuff directly above the bend of the elbow. Check the monitor's instruction manual for an illustration. Take multiple readings. When you measure, take 2 to 3 readings one minute apart and record all of the results. Take your blood pressure at the same time every day, or as your healthcare provider recommends. Record the date, time, and blood pressure reading. Take the record with you to your next medical appointment. If your blood pressure monitor has a built-in memory, simply take the monitor with you to your next appointment. Call your provider if you have several high readings. Don't be frightened by a single high bloodpressure reading, but if you get several high readings, check in with your healthcare provider. Note: If blood pressure reaches a systolic (top number) of 180 or higher OR diastolic (bottom number) of 120 or higher, or as directed by your healthcare provider, seek emergency medical treatment. Follow-up care Because a new blood pressure medicine was started today, it?s important that you have your blood pressure rechecked. This is to make sure that the medicine is working and that you have no serious side effects. Keep all your follow up appointments. Write down medicine and blood pressure questions and bring them to your next appointment. If you have pressing concerns about your new medicine or yourblood pressure, call your provider. Unless told otherwise, follow up with your healthcare provider within the next 3 days. Call 911 Call 911 if any of the following occur: Blood pressure reaches a systolic (top number) of 180 or higher, OR diastolic (bottom number) of120 or higher, or as directed by your healthcare provider Chest pain or shortness of breath Extreme drowsiness, confusion, or fainting Numbness, tingling, or weakness of your arm, leg, or one side of your face You have problems speaking or seeing Sudden severe pain in your belly (abdomen) or back When to seek medical care Call your healthcare provider right away if any of these occur: Severe headache Throbbing or rushing sound in the ears Nosebleed Last Reviewed Date: 08/19/202219998664-0023 [employer]. All rights reserved. This information is not intended as a substitute for professional medical care. Always follow your healthcare professional's instructions. documented in this encounter Plan of Treatment Upcoming Encounters Date Type Department Care Team (Late st Contact Info) Description 04/27/2024 8:20 AM EDT Office Visit Family Practice [facility] [address] [facility] [place], [place] [address] Sonya Dacosta MD [address] [facility] [place] [address] 06/28/2024 8:30 AM EDT Imaging Cardiac Studies, [facility] [address] [facility] [place] [id number] Pending Results Name Type Priority Associated Diagnoses Date /Time TSH WITH FREE T4 IF INDICATED Lab [...] Routine Rib pain on right side 03/27/2024 9:52 AM EDT Scheduled Orders Name Type Priority Associated Diagnoses Orde r Schedule TSH WITH FREE T4 IF INDICATED Lab [...] chlamydial disease Expected: 03/27/2024 (Approximate), Expires: 03/27/2025 ECHO, STRESS (EXERCISE) W/ PHYSICIAN Echocardiology Routine Hypertension goal BP (blood pressure) < 140/90 Expected: 03/27/2024, Expires: 04/27/2025 Health Maintenance Due Date Last Done Comments Lipid Panel 1970 Depression Screening 1982 HIV Screening 1985 Hepatitis C Screening 1988 TSH 1988 DTaP,Tdap,and Td Vaccines (1 - Tdap) 1989 Hepatitis B Vaccine (1 of 3 - 19+ 3-dose series) 1989 Diabetes Screening 04/06/2000 03/27/2024, 03/27/2024, 04/06/1997 Cologuard 11/26/2015 Colonoscopy 11/26/2015 Colorectal Cancer [...] Not on filedocumented as of this encounter Procedures Procedure Name Priority Date/Time Associated Diagnosis Comments MI ECG ROUTINE ECG W/LEAST 12 LDS W/I&R Routine 03/27/2024 9:11 AM EDT Hypertension goal BP (blood pressure) < 140/90 documented in this encounter Results * HEMOGLOBIN A1C (03/27/2024 9:15 AM EDT) Hemoglobin A1C 5.2 4.0 - 5.6 % 03/27/2024 4:53 PM EDT [facility]:The use of HbA1c to monitor glycemic status is based on normal hemoglobin and HbA composition. This test should not be used in patients with abnormal hemoglobin that affects the half life of the red blood cell or the in vivo glycation rates. Estimated Average Glucose 103 <126 mg/dL 03/27/2024 4:53 PM EDT [facility] [place] Venous blood specimen / Unknown Venipuncture / Unknown 03/27/2024 9:15 AM EDT 03/27/2024 9:17 AM EDT Cinda Green MD LAB BLOOD ORDERABLES [facility] [address] [place] [address] * (ABNORMAL) LIPID PANEL WITH DIRECT LDL IF TG IS HIGH (03/27/2024 9:15 AM EDT) Pathologist [facility] Triglycerides 316(H) <=174 mg/dL 03/27/2024 4:54 PM EDT [facility] [place]: Triglyceride Reference Ranges (mg/dL): <150 Acceptable 150-174 Borderline high 175-499 High >=500 Very high Cholesterol 144 <200 mg/dL 03/27/2024 4:54 PM EDT [facility] [place]: Total Cholesterol Reference Ranges (mg/dL): <200 Desirable 200-239 Borderline high >=240 High HDL Cholesterol 27(L) >39 mg/dL 4:54 PM EDT [facility] [place]: HDL Cholesterol Reference Ranges (mg/dL): >=60 High (Desirable) <50 Low (Undesirable) For Females <40 Low (Undesirable) For Males Non-HDL Cholesterol 117 <=159 mg/dL 03/27/2024 4:54 PM EDT [facility] [place]: Non-HDL Cholesterol Reference Range (mg/dL): <100 Target level for high risk ASCVD patient <130 Optimal for general population 130-159 Near optimal for general population 160-189 Borderline High 190-219 High >=220 Very High Blood Venous blood specimen / Unknown Venipuncture / Unknown 03/27/2024 9:15 AM EDT 03/27/2024 9:17 AM EDT Cinda Green MD LAB BLOOD ORDERABLES [facility] [address] [place] [address] * (ABNORMAL) COMPREHENSIVE METABOLIC PANEL (03/27/2024 9:15 AM EDT) BUN 25(H) 6 - 20 mg/dL 03/27/2024 4:54 PM EDT [facility] Creatinine 2.4(H) 0.6 - 1.2 mg/dL 03/27/2024 4:54 PM EDT [facility] Estimated Glomerular Filtration Rate 31(L) >=60 mL/min 03/27/2024 4:54 PM EDT [facility] Comment:eGFR is calculated b ased on the CKD-EPI 2020 equation Sodium 138 135 - 146 mmol/L 03/27/2024 4:54 PM EDT [facility] Potassium 4.3 3.5 - 5.1 mmol/L 03/27/2024 4:54 PM EDT [facility] Chloride 99 98 - 107 mmol/L 03/27/2024 4:54 PM EDT [facility] CO2 27 22 - 32 mmol/L 03/27/2024 4:54 PM EDT [facility] Anion Gap 12 7 - 15 mmol/L 03/27/2024 4:54 PM EDT [facility] Glucose 109 70 - 120 mg/dL 03/27/2024 4:54 PM EDT [facility] Albumin 4.0 3.8 - 5.0 g/dL 03/27/2024 4:54 PM EDT [facility] AST 40 10 - 50 U/L 03/27/2024 4:54 PM EDT [facility] Alkaline Phosphatase 53 35 - 130 U/L 03/27/2024 4:54 PM EDT [facility] Bilirubin, Total 2.2(H) <=1.2 mg/dL 03/27/2024 4:54 PM EDT [facility] Calcium 9.2 8.4 - 10.2 mg/dL 03/27/2024 4:54 PM EDT [facility] Protein 6.5 6.0 - 8.3 g/dL 03/27/2024 4:54 PM EDT [facility] ALT 21 10 - 50 U/L 03/27/2024 4:54 PM EDT [facility] Blood Venous blood specimen / Unknown Venipuncture / Unknown 03/27/2024 9:15 AM EDT 03/27/2024 9:17 AM EDT Cinda Green MD LAB BLOOD ORDERABLES [facility] [address] [place] [address] * EKG (03/27/2024 9:11 AM EDT) 03/27/2024 9:11 AM EDT Narrative Procedure Note Marcel Infante DO - 03/27/2024 9:11 AM EDT REASON FOR STUDY: elevbp CONCLUSIONS: Normal sinus rhythm Possible Left atrial enlargement Cannot rule out Septal infarct , age undetermined Abnormal ECG Ventricular Rate: 81 Atrial Rate: 81 MI Interval: 144 QRS Duration: 80 QT/QTc: 362/420 ms P-R-T Clint: 60 : 43 : 72 degrees Cinda Green MD EKG Performing Organization Address [facility] Co de Phone Number [facility] documented in this encounter Visit Diagnoses Diagnosis Hypertension goal [...] unspecified documented in this encounter Care Teams Pattern Gater Relationship Specialty Start Date End Date Cinda Schneider MD [address] [place] [address] [place] [id number] PCP - General Family Medicine 03/27/24 documented as of this encounter
--- OUTSIDE RECORDS SUMMARY | 2024-03-30 13:08 | External Medical Summary | Summary of Care ---
Author Name Unknown Organization [facility] Address [address] [place] [address] Phone [phone] Care Team Providers Care Science Education Professor Name Role Phone Cinda Schneider MD Primary Care Prov ider Reason for Visit * Reason Comments Outpatient Testing Encounter Details Date Type Department Care Team (Late st Contact Info) Description 03/27/2024 9:20 AM EDT Laboratory Laboratory [address] [place] [phone] [place] [address] [place] Other*[id number]; Hypertension goal BP (blood pressure) < 140/90; Screening for cardiovascular condition; Muscle stiffness; Special screening examination for viral and chlamydial disease Allergies Active Allergy Reactions Criticality Noted Date [...] as of this encounter Plan of Treatment Pending Results Name Type Priority Associated Diagnoses Date /Time MYCODE INITIAL ADULT Lab Routine MyCode Research Other*[id number] 03/27/2024 9:15 AM EDT COMPREHENSIVE METABOLIC PANEL Lab Routine Hypertension goal [...] and chlamydial disease 03/27/2024 9:15 AM EDT MYCODE INITIAL ADULT-PINK Lab Routine [facility]Code Research Other*[id number] 03/27/2024 9:15 AM EDT MYCODE SST1 Lab Routine MyCode Research Other*[id number] 03/27/2024 9:15 AM EDT MYCODE SST2 Lab Routine MyCode Research Other*[id number] 03/27/2024 9:15 AM EDT HEPATITIS C ANTIBODY Lab Routine Special screening examination for viral and chlamydial disease 03/27/2024 9:15 AM EDT HEPATITIS C RNA ADD ON Lab Routine Special screening examination for viral and chlamydial disease 03/27/2024 9:15 AM EDT Health Maintenance Due Date Last Done Comments [...] this encounter Visit Diagnoses Diagnosis MyCode Research Other*[id number] Hypertension goal BP (blood pressure) < 140/90 Unspecified essential hypertension Screening for cardiovascular condition Screening for other and unspecified cardiovascular conditions Muscle stiffness Unspecified disorder of muscle, ligament, and fascia Special screening examination for viral and chlamydial disease documented in this encounter Care Teams Science Education Professor Relationship Specialty Start Date End Date Cinda Schneider MD [address] [place] [address] [place] [address] PCP - General Family Medicine 03/27/24 documented as of this encounter
--- OUTSIDE RECORDS SUMMARY | 2024-03-30 13:08 | External Medical Summary | Summary of Care ---
Author Name Unknown Organization [facility] Address [address] [place] [address] Phone [phone] Care Team Providers Care Milk Handler Name Role Phone Cinda Schneider MD Primary Care Prov ider Reason for Referral * Precert (Within 10 days (routine)) - Pending Review Specialty Diagnoses / Procedures Referred By Contac t Referred To Contact Cardiac Studies Diagnoses Hypertension goal BP (blood pressure) < 140/90 Procedures ECHO, STRESS (EXERCISE) W/ PHYSICIAN Cinda Schneider MD [address] [place] [address] [place] [address] Referral ID Status Reason Start Date Expiration Date Visits Requested Visits Authorized [id number] Pending Review Precert 03/27/2024 999 999 Reason for Visit * Reason Comments Follow Up Encounter Details Date Type Department Care Team (Latest Contact Info) Description 03/27/2024 8:20 AM EDT Office Visit Family Medicine [address] [place] [address] Cinda Schneider MD [address] [place] [address] [place] [phone] Hypertension goal BP (blood pressure) < 140/90*; [...] - with me / [place] OR IN [facility] (Dr Sonya Hough) Low sodium diet [...] 8:20 AM EDT Office Visit Family Practice [facility] [address] [facility], [place] [address] Sonya Dacosta MD [address] [facility] [address] 06/28/2024 8:30 AM EDT Imaging Cardiac Studies, [facility] [address] [facility] [place] [address] Pending Results Name Type Priority Associated Diagnoses [...] unspecified documented in this encounter Care Teams Milk Handler Relationship Specialty Start Date End Date Cinda Schneider MD [address] [place] [address] [place] [phone] PCP - General Family Medicine 03/27/24 documented as of this encounter
--- OUTSIDE RECORDS SUMMARY | 2024-03-30 13:08 | External Medical Summary ---
Author Name Unknown Address Unknown Organization [id number]:LABORATORY [facility] [address] [place] [address] Laboratory Report Ordering Provider Test Date Status GABRIELLA TAN 03/29/2024 11:31:56 Final Observation Date Value Abnormality Reference (Units ) Status BUN 03/29/2024 11:31:56 27 Above high normal 6-20 (mg/dL) Final Creatinine 03/29/2024 11:31:56 2.5 Above high normal 0.6-1.2 (mg/dL) Final Glomerular filtration rate/1.73 sq M.predicted [Volume Rate/Area] in Serum, Plasma or Blood by Creatinine-based formula (CKD-EPI) 03/29/2024 11:31:56 31 Below low normal >=60 (mL/min) Final eGFR is calculated based on the CKD-EPI 2020 equation Sodium 03/29/2024 11:31:56 134 Below low normal 135 -146 (mmol/L) Final Potassium 03/29/2024 11:31:56 3.8 3.5-5.1 (m mol/L) Final Cl 03/29/2024 11:31:56 95 Below low normal 98- 107 (mmol/L) Final CO2 03/29/2024 11:31:56 26 22-32 (mmo l/L) Final Anion gap 03/29/2024 11:31:56 13 7-15 (mmol /L) Final Glucose 03/29/2024 11:31:56 113 70-120 (mg /dL) Final Calcium 03/29/2024 11:31:56 9.3 8.4-10.2 ( mg/dL) Final Performing Location LABORATORY [place] [address] [place] [address]
--- OUTSIDE RECORDS SUMMARY | 2024-03-30 13:08 | External Medical Summary ---
Author Name Unknown Address Unknown Organization K0G:LABORATORY [facility] [place] [address] [place] [id number] Laboratory Report Ordering Provider Test Date Status GABRIELLA TAN 03/29/2024 11:31:56 Final Observation Date Value Abnormality Reference (Units ) Status WBC, Total 03/29/2024 11:31:56 8.90 4.00-10.8 0 (K/uL) Final RBC 03/29/2024 11:31:56 4.37 4.50-5.25 (M/uL) Final Hemoglobin 03/29/2024 11:31:56 13.5 Below low normal 14 .0-16.8 (g/dL) Final HCT 03/29/2024 11:31:56 40.9 40.0-48.4 (%) Final MCV 03/29/2024 11:31:56 93.6 82.0-99.5 (fL) Final MCH 03/29/2024 11:31:56 30.9 27.0-34.0 (pg) Final MCHC 03/29/2024 11:31:56 33.0 32.0-36.0 (g/dL) Final RDW 03/29/2024 11:31:56 14.8 11.5-15.5 (%) Final Platelets 03/29/2024 11:31:56 182 140-400 (K /uL) Final MPV 03/29/2024 11:31:56 9.2 6.6-11.1 ( fL) Final Performing Location LABORATORY [facility] [place] [address] [place] [address]
--- OUTSIDE RECORDS SUMMARY | 2024-03-30 13:08 | External Medical Summary ---
Author Name Unknown Address Unknown Organization K01:LABORATORY [address] [place] [address] Laboratory Report Ordering Provider Test Date Status GABRIELLA TAN DAVIS 03/27/2024 09:15:53 Final Observation Date Value Abnormality Reference (Units ) Status T4, Free 03/27/2024 09:15:53 1.3 0.9-1.7 (n g/dL) Final Performing Location LAB[facility]ATORY [facility] - [address] [place] [address]
--- OUTSIDE RECORDS SUMMARY | 2024-03-30 13:08 | External Medical Summary ---
Author Name Unknown Address Unknown Organization K01:[facility] [place] [address] [place] [address] Laboratory Report Ordering Provider Test Date Status GABRIELLA TAN 03/27/2024 09:15:53 Final Observation Date Value Abnormality Reference (Units ) Status LDL, (direct) 03/27/2024 09:15:53 76 <=129 (mg/dL) Final LDL Cholesterol Reference Ra nges (mg/dL):
<70 Target level for high risk ASCVD patient
<100 Optimal for general population
100-129 Near optimal for general population
130-159 Borderline high
160-189 High
>=190 Very high Performing Location LAB[facility]ATORY [facility] - [address] [place] [address]
--- OUTSIDE RECORDS SUMMARY | 2024-03-30 13:08 | External Medical Summary ---
Author Name Unknown Address Unknown Organization K01:LABORATORY [place] [address] [place] [address] Laboratory Report Ordering Provider Test Date Status GABRIELLA TAN 03/27/2024 09:15:53 Final Observation Date Value Abnormality Reference (Units) Status Hepatitis B virus surface Ab [Units/volume] in Serum or Plasma by Immunoassay 03/27/2024 09:15:53 <3.5 (mIU/mL) Final Hepatitis B virus surface Ab [Presence] in Serum by Immunoassay 03/27/2024 09:15:53 Negative Final HEPATITIS B SURFACE ANTIBODY, INTERPRETATION 03/27/2024 09:15:53 NOT immune to Hepatitis B Virus Final POSITIVE: >=11.5 mIU/mL
INDETERMINATE: 8.5-<11.5 mIU/mL
NEGATIVE: <8.5 mIU/mL Performing Location LABORATORY [place] [address] [place] [address]
--- OUTSIDE RECORDS SUMMARY | 2024-03-30 13:08 | External Medical Summary ---
Author Name Unknown Address Unknown Organization K01:[facility] [place] [address] [place] [address] Laboratory Report Ordering Provider Test Date Status GABRIELLA TAN 03/27/2024 09:15:53 Final Observation Date Value Abnormality Reference (Units ) Status Hep C Ab 03/27/2024 09:15:53 Negative Negative Final Further HCV quantitative fátima ting not performed per protocol. Performing Location LABORATORY [facility] [place] - [address] [place] [address]
--- OUTSIDE RECORDS SUMMARY | 2024-03-30 13:08 | External Medical Summary | Summary of Care ---
Author Name Unknown Organization [facility] Address [address] [place] [address] Phone [phone] Care Team Providers Care Wireless Team Member Name Role Phone Cinda Schneider MD Primary Care Prov ider Reason for Referral * Precert (Within 10 days (routine)) - Pending Review Specialty Diagnoses / Procedures Referred By Contac t Referred To Contact Cardiac Studies Diagnoses Hypertension goal BP (blood pressure) < 140/90 Procedures ECHO, STRESS (EXERCISE) W/ PHYSICIAN Cinda Schneider MD [address] [place] [address] [place] [address] Referral ID Status Reason Start Date Expiration Date Visits Requested Visits Authorized [id number] Pending Review Precert 03/27/2024 999 999 Reason for Visit * Reason Comments Follow Up Encounter Details Date Type Department Care Team (Latest Contact Info) Description 03/27/2024 8:20 AM EDT Office Visit Family Medicine [address] [place] [address] Cinda Schneider MD [address] [place] [address] [place] [address] Hypertension goal BP (blood pressure) < 140/90*; [...] - with me / [place] OR IN [facility] (Dr Sonya Hough) Low sodium diet Start [...] from the original note were not included. [id number] Low-Salt Diet This diet removes foods that [...] and other salty snacks, as well as [place] toast, pancakes, muffins, regular bread, instant oatmeal [...] and salted potato chips Last Reviewed Date: 03/19/202219993004-1663 [employer]. All rights reserved. This information is not intended as a substitute for professional medical care. Always follow your healthcare professional's instructions. * Pt Handout (on AVS) - Tamica Kaiser RN - 03/27/2024 10:36 AM EDT Images from the original note were not included. [id number] Low-Salt Diet This diet removes foods that [...] and other salty snacks, as well as [place] toast, pancakes, muffins, regular bread, instant oatmeal [...] and salted potato chips Last Reviewed Date: 03/19/202219994146-3788 [employer]. All rights reserved. This information is not intended as a substitute for professional medical care. Always follow your healthcare professional's instructions. * Pt Handout (on AVS) - Tamica Kaiser RN - 03/27/2024 10:35 AM EDT Images from the original note were not included. [id number] High Blood Pressure, New, Begin Treatment Your [...] that have heart stimulants. This includes many qais-hmv-fhgagjz cold and sinus decongestant pills and sprays, as well as diet pills. Check the warnings about high blood pressure on the label. Before purchasing any bjrj-rmo-qsyswoc medicines or supplements, always ask the phar [...] can get this at most pharmacies. The [place] [employer] recommends the following guidelines for [...] in the ears Nosebleed Last Reviewed Date: 08/19/202219993023-7794 [employer]. All rights reserved. This information is not intended as a substitute for professional medical care. Always follow your healthcare professional's instructions. documented in this encounter Plan of Treatment Upcoming Encounters Date Type Department Care Team (Late st Contact Info) Description 04/27/2024 8:20 AM EDT Office Visit Family [facility] Luis Sandoval [address] [place], [place] [address] Sonya Dacosta MD [address] [place] [address] 06/28/2024 8:30 AM EDT [facility] [address] [place] [address] Pending Results Name Type Priority Associated Diagnoses [...] unspecified documented in this encounter Care Teams Wireless Team Member Relationship Specialty Start Date End Date Cinda Schneider MD [address] [place] [address] [place] [address] PCP - General Family Medicine 03/27/24 documented as of this encounter
--- NOTE | 2024-03-30 15:43 | Hospitalist Progress Note ---
Date of Service March 30, 2024 Assessment & Plan (1) VENKAT (acute kidney injury): (2) Hypertensive urgency: (3) Multifocal pneumonia: Plan: 53-year-old male with history of hypertension and hypothyroidism Presenting with abnormal lab results from primary care physician's office. Acute renal failure Likely secondary to longstanding uncontrolled hypertension, underlying pneumonia Could have underlying CKD Unknown Baseline Cr Urinalysis showing protein, hyaline casts -Renal USD:No hydronephrosis. Slight increased cortical echogenicity bilaterally which could be technical. Early medical renal disease is not excluded. Cr 2.4 today Continue IV fluids Avoid nephrotoxic agents as able Appreciate nephrology input Monitor renal function Hypertensive urgency Continue amlodipine, carvedilol Hydralazine as needed Monitor BP and adjust medications as needed Multifocal pneumonia --CT chest:Multiple irregular airspace opacities seen within the bilateral mid to lower lung zones demonstrating a peripheral and basilar distribution. These demonstrate both groundglass and consolidative components. These findings favor an atypical/viral pneumonitis and could be related to Covid pneumonia. Multiple prominent mediastinal, hilar, and axillary lymph nodes. These are indeterminate but could be reactive to the suspected infectious process. [address] follow-up recommended to ensure resolution. -- Nasal MRSA negative Bio fire negative Urine for Legionella pending Blood culture pending Continue Levaquin renally adjusted Check procalcitonin Saturating well on room air Nebs as needed Continue pulmonary hygiene with flutter, Mucinex, incentive spirometry Diastolic dysfunction--likely chronic Elevated BNP BNP slightly elevated Mild troponin elevation--likely demand ischemia secondary to acute infection, hypertensive urgency --ECHO: Moderate concentric LVH. EF 65 to 70%. Grade 2 diastolic dysfunction. Borderline left atrial enlargement. No significant valvular disease. Monitor volume status Will consider adding diuretics once renal function improves Elevated bilirubin History of Gilbert syndrome as per patient Total Bilirubin 3.0>2.6 AST/ALT normal Liver USD: No hydronephrosis.Slight increased cortical echogenicity bilaterally which could be technical. Early medical renal disease is not excluded. Monitor LFTs Avoid hepatotoxic agents as able Elevated CK level CK 296>216 Episodes of palpitations H/O Hypothyroidism TSH elevated likely in setting of acute infection Continue levothyroxine May need Zio patch as an outpatient We will repeat thyroid function test DVT prophylaxis Heparin SQ Code Status Full code Disposition Expect to discharge home when stable Admission and Anticipated Discharge Date Admission Date: March 29, 2024 Subjective Patient is seen and examined at bedside Less cough today Denies any shortness of breath today Reports generalized joint pain Discussed with patient's family at bedside Renal function only minimally improved today No other complaints Review of Systems Review of Systems: All systems reviewed & are unremarkable except as noted in Subjective Physical Exam Physical Exam: Physical Exam: Vitals signs as noted above General Appearance:Moderately built and nourished, no apparent distress Head: normocephalic, Atraumatic Eyes: normal inspection, EOMI Neck: supple, Trachea midline Respiratory/Chest: Normal breath sounds, basal crackles, No accessory muscle use Cardiovascular: S1, S2, No murmur Abdomen/GI:Soft, Non tender, Bowel sounds present Extremities/Musculoskeletal:normal inspection, Trace extremity edema Neurologic/Psych:AAOX3, grossly no focal neurological deficits Skin: normal color, warm Results & Data Results & Data Vital Signs (Past 12 Hours) Vital Signs Temp Pulse Pulse Resp BP Pulse Ox O2 Del Method 03/30/24 14:07 83 03/30/24 13:52 78 18 99 Room Air 03/30/24 12:40 166/93 H 03/30/24 11:11 36.8 C 76 19 166/99 H 97 Room Air 03/30/24 10:10 Room Air 03/30/24 07:33 36.6 C 83 19 175/100 H 95 Room Air 03/30/24 07:22 81 03/30/24 07:20 81 18 91 Room Air Laboratory Results Short CBC 03/29/24 03/30/24 Range/Units 15:56 07:24 WBC 7.86 7.55 (4.8-10.8) K/ul Hgb 13.4 L 13.1 L (14.0-18.0) g/dl Hct 39.6 L 39.0 L (42.0-52.0) % Plt Count 195 162 (130-400) K/uL BMP 03/29/24 03/30/24 15:56 07:24 Sodium 135 L 136 Potassium 3.3 L 3.7 Chloride 99 104 Carbon Dioxide 27 24 BUN 31 H 26 H Creatinine 2.50 H 2.40 H Glucose 172 H 111 H Calcium 8.7 8.6 Cardiac Enzymes 03/29/24 03/30/24 Range/Units 15:56 07:24 Total Creatine Kinase 296 H 216 (30-223) U/L Liver Function 03/29/24 03/30/24 Range/Units 15:56 07:24 Total Bilirubin 3.0 H 2.6 H (0.2-1.0) mg/dl Direct Bilirubin 0.4 H (0-0.2) mg/dl AST 35 30 (13-39) U/L ALT 16 12 (7-52) U/L Alkaline Phosphatase 51 40 (34-104) U/L Albumin 4.1 3.8 (3.4-5.0) gm/dl Urine 03/29/24 Range/Units Unknown Urine Color Yellow Urine Appearance Clear (Clear) Urine pH 6.0 (4.5-7.5) Ur Specific [place] 1.020 (1.000-1.030) Urine Protein 1+ H (Negative) Urine Glucose (UA) Negative (Negative)
[2024-03-30] MEDS: LACTATED RINGER'S 1,000 ML IV SCH (17:00)
[2024-03-30] MEDS: hydrALAZINE HCL 20 MG/ML VIAL IV PRN (18:15)
[2024-03-30] MEDS: hydrALAZINE HCL 20 MG/ML VIAL ONE (18:16)
[2024-03-30] MEDS: carvediloL 3.125 MG TAB PO ONE (20:09)
[2024-03-30] MEDS: HEPARIN SOD 5,000 UNIT/0.5 ML VIAL SQ SCH (21:17)
[2024-03-31] MEDS: LEVOTHYROXINE SODIUM 200 MCG TABLET PO SCH (04:34)
[2024-03-31] MEDS: amLODIPine BESYLATE 5 MG TAB PO ONE (04:34)
[2024-03-31] MEDS: levoFLOXacin 750 MG TAB PO SCH (08:17)
[2024-03-31] MEDS: carvediloL 3.125 MG TAB PO SCH (08:17)
--- NOTE | 2024-03-31 08:35 | Nephrology Progress Note ---
Date of Service March 31, 2024 Assessment & Plan Admission and Anticipated Discharge Date Admission Date: March 29, 2024 Subjective Assessment & Plan (1) VENKAT (acute kidney injury): At this point I do not have any baseline renal function to compare. As per patient he was never told he had abnormal kidney function. we will try to obtain medical records from his prior PCP who was with [facility]. but at this point we will go by what patient is saying and assume his baseline kidney function is normal. given this will call this as acute kidney injury. creatinine has been 2.4-2.5 range for 4 days now which is more suggestive of this being CKD. renal ultrasound was unremarkable. urine dipstick did not show significant findings. He does have moderate proteinuria of around half a gram by ratio in the setting of hypertensive urgency. This is not consistent with any type of glomerular nephritis or nephrotic syndrome. I will be repeating his UA and proteinuria check once blood pressure is stabilized. Stop RL. BP is high. Creat about same since 03/27--this is looking more like CKD repeat UA and prot/creat tomorrow (2) Multifocal pneumonia: based on symptoms as well as imaging. It is being checked and treated. Consider CT of the chest as well as urine Legionella. Appears more like viral Pneumonia ? covid. (3) Hypertensive urgency: patient has had history of hypertension for while but has not been on medication. Patient has been started on amlodipine and carvedilol and with that blood pressure is starting to get better. most recent reading is 166 x 99 and that is acceptable for the time being. there is risk of renal decline if blood pressure drops very abruptly. For now raise Amlo to 5 bid and Coreg to 12.5 bid. Also Stop RL--that will also help. Eventually would need ZOE/ARB and Diuretics also but that will be outpt (4) CHF (congestive heart failure): some finding of CHF on the imaging and given extremely high blood pressure I would recommend to do echocardiogram--Diastolic Dysfunction but LVEF Normal. S--BP still high. renal labs unchanged. making urine. No new issues physical examination awake alert oriented x3 able to give detailed account of his medical problem. He does appear to be quite anxious. no respiratory distress mucous membrane is moist neck is supple no JVD chest bilateral occasional crackles at the bases. CVS S1-S2 regular abdomen is soft nontender extremities shows no edema skin shows no rash Results & Data Vital Signs (Past 12 Hours) Vital Signs Temp Pulse Pulse Resp BP Pulse Ox Pulse Ox 03/31/24 08:26 170/100 H 03/31/24 07:24 84 16 94 03/31/24 07:23 78 03/31/24 07:16 36.3 C L 84 18 169/100 H 94 03/31/24 03:11 36.8 C 82 18 149/85 H 94 03/30/24 22:42 36.9 C 85 16 144/82 H 95 03/30/24 21:58 79 03/30/24 21:31 95 03/30/24 21:15 84 160/87 H O2 Del Method O2 Del Method 03/31/24 08:26 03/31/24 07:24 Room Air 03/31/24 07:23 03/31/24 07:16 Room Air 03/31/24 03:11 Room Air 03/30/24 22:42 Room Air 03/30/24 21:58 03/30/24 21:31 Room Air 03/30/24 21:15
[2024-03-31 08:45] LABS: Hematocrit (blood only) 38.5 % (42.0-52.0); Hemoglobin 12.9 g/dl (14.0-18.0); Mean Corpuscular Hemoglobin 30.5 pg (25.0-34.0); Mean Corpuscular Hgb Conc 33.5 g/dL (32.0-36.0); Mean Platelet Volume 9.7 fL (9.4-12.4); Platelet Count 166 K/uL (130-400); RDW Coefficient of Variation 14.7 % (11.5-14.5); RDW Standard Deviation 48.8 fL (36.4-46.3); Red Blood Count 4.23 M/uL (4.70-6.10); White Blood Count 6.74 K/ul (4.8-10.8)
[2024-03-31 09:02] LABS: Albumin Level 3.7 gm/dl (3.4-5.0); BUN Creatinine Ratio 9.9 (10-20); Bilirubin Direct 0.4 mg/dl (0-0.2); Bilirubin,Total 3.4 mg/dl (0.2-1.0); Calcium 8.6 mg/dl (8.6-10.3); Creatinine Clr Calc Pharmacy 42.3 ml/min; Est GFR (African American) 30.8 ml/min; Est GFR (Non-African American) 26.6 ml/min; Potassium 3.2 mmol/L (3.5-5.1); Total Protein 6.2 gm/dl (6.0-8.3)
[2024-03-31 09:16] LABS: Thyroid Stimulating Hormone 18.168 uIu/ml (0.300-4.500)
[2024-03-31 09:53] LABS: T4 Free Thyroxine 1.23 ng/dl (0.61-1.60)
[2024-03-31] MEDS: POTASSIUM CHLORIDE CRTAB 20 MEQ TABCR PO ONE (10:02)
[2024-03-31 10:51] LABS: Creatinine Urine Random 226.9 mg/dl; Protein Creatinine Ratio Urine 0.5 (0-0.2); Total Protein Urine Random 110.9 mg/dl (0-11.9)
[2024-03-31 10:54] LABS: Appearance Urine Clear (Clear); Bacteria Urine Automated None Seen (None Seen); Bilirubin Urine Negative (Negative); Blood Urine Negative (Negative); Color Urine Yellow; Glucose Urine UA Negative (Negative); Granular Casts Urine Present /lpf (None Prsent); Ketones Urine Negative (Negative); Leukocyte Esterase Urine Negative (Negative); Nitrite Urine Negative (Negative); Protein Urine 2+ (Negative); RBC Urine Automated 0-2 /hpf (0-2); Specific Gravity Urine 1.021 (1.000-1.030); Urobilinogen Urine Negative (Negative); WBC Urine Automated 0-5 /hpf (0-5); pH Urine 5.5 (4.5-7.5)
[2024-03-31] MEDS ORDERED: SODIUM CHLORIDE 0.65% NA SOLN 45 ML (OCEAN) PRN (11:59)
--- NOTE | 2024-03-31 15:17 | Hospitalist Progress Note ---
Date of Service March 31, 2024 Assessment & Plan (1) VENKAT (acute kidney injury): (2) Hypertensive urgency: (3) Multifocal pneumonia: Plan: 53-year-old male with history of hypertension and hypothyroidism Presenting with abnormal lab results from primary care physician's office. Acute renal failure Likely secondary to longstanding uncontrolled hypertension, underlying pneumonia Could have underlying CKD Unknown Baseline Cr Urinalysis showing protein, hyaline casts -Renal USD:No hydronephrosis. Slight increased cortical echogenicity bilaterally which could be technical. Early medical renal disease is not excluded. Cr 2.6 today Received IV fluids Avoid nephrotoxic agents as able Appreciate nephrology input Monitor renal function Plan for repeat urinary studies tomorrow Nephrology following Hypertensive urgency Continue amlodipine, carvedilol Hydralazine as needed Monitor BP and adjust medications as needed Amlodipine dose increased to 5 mg twice a day Coreg dose increased to 12.5 mg twice a day Multifocal pneumonia --CT chest:Multiple irregular airspace opacities seen within the bilateral mid to lower lung zones demonstrating a peripheral and basilar distribution. These demonstrate both groundglass and consolidative components. These findings favor an atypical/viral pneumonitis and could be related to Covid pneumonia. Multiple prominent mediastinal, hilar, and axillary lymph nodes. These are indeterminate but could be reactive to the suspected infectious process. [address] follow-up recommended to ensure resolution. -- Nasal MRSA negative Bio fire negative Normal procalcitonin Urine for Legionella pending Blood culture negative to date Continue Levaquin renally adjusted Saturating well on room air Nebs as needed Continue pulmonary hygiene with flutter, Mucinex, incentive spirometry Continue current management Diastolic dysfunction--likely chronic Elevated BNP BNP slightly elevated Mild troponin elevation--likely demand ischemia secondary to acute infection, hypertensive urgency --ECHO: Moderate concentric LVH. EF 65 to 70%. Grade 2 diastolic dysfunction. Borderline left atrial enlargement. No significant valvular disease. Monitor volume status Will consider adding diuretics once renal function improves Elevated bilirubin History of Gilbert syndrome as per patient Total Bilirubin 3.0>2.6 AST/ALT normal Liver USD: No hydronephrosis.Slight increased cortical echogenicity bilaterally which could be technical. Early medical renal disease is not excluded. Monitor LFTs Avoid hepatotoxic agents as able Elevated CK level CK 296>216 Episodes of palpitations H/O Hypothyroidism TSH elevated likely in setting of acute infection Normal free T4 Continue levothyroxine May need Zio patch as an outpatient Will need repeat thyroid function test as outpatient DVT prophylaxis Heparin SQ Code Status Full code Disposition Expect to discharge home when stable Admission and Anticipated Discharge Date Admission Date: March 29, 2024 Subjective Patient is seen and examined at bedside Less cough, dyspnea today Reports having headache overnight which currently resolved this morning Blood pressure still remains elevated mildly Eager to get discharged No other complaints today Review of Systems Review of Systems: All systems reviewed & are unremarkable except as noted in Subjective Physical Exam Physical Exam: Physical Exam: Vitals signs as noted above General Appearance:Moderately built and nourished, no apparent distress Head: normocephalic, Atraumatic Eyes: normal inspection, EOMI Neck: supple, Trachea midline Respiratory/Chest: Normal breath sounds, basal crackles, No accessory muscle use Cardiovascular: S1, S2, No murmur Abdomen/GI:Soft, Non tender, Bowel sounds present Extremities/Musculoskeletal:normal inspection, Trace extremity edema Neurologic/Psych:AAOX3, grossly no focal neurological deficits Skin: normal color, warm Results & Data Results & Data Vital Signs (Past 12 Hours) Vital Signs Temp Pulse Pulse Resp BP Pulse Ox O2 Del Method 03/31/24 14:35 85 03/31/24 13:27 95 H 18 99 Room Air 03/31/24 11:23 36.4 C L 75 18 155/96 H 97 Room Air 03/31/24 08:26 170/100 H 03/31/24 08:17 Room Air 03/31/24 07:24 84 16 94 Room Air 03/31/24 07:23 78 03/31/24 07:16 36.3 C L 84 18 169/100 H 94 Room Air 03/31/24 03:11 36.8 C 82 18 149/85 H 94 Room Air Laboratory Results Short CBC 03/31/24 Range/Units 08:16 WBC 6.74 (4.8-10.8) K/ul Hgb 12.9 L (14.0-18.0) g/dl Hct 38.5 L (42.0-52.0) % Plt Count 166 (130-400) K/uL BMP 03/31/24 08:16 Sodium 135 L Potassium 3.2 L Chloride 102 Carbon Dioxide 25 BUN 26 H Creatinine 2.63 H Glucose 146 H Calcium 8.6 Cardiac Enzymes 03/31/24 Range/Units 08:16 Total Creatine Kinase 209 (30-223) U/L Liver Function 03/31/24 Range/Units 08:16 Total Bilirubin 3.4 H (0.2-1.0) mg/dl Direct Bilirubin 0.4 H (0-0.2) mg/dl AST 28 (13-39) U/L ALT 13 (7-52) U/L Alkaline Phosphatase 37 (34-104) U/L Albumin 3.7 (3.4-5.0) gm/dl Urine 03/31/24 Range/Units 10:00 Urine Color Yellow Urine Appearance Clear (Clear) Urine pH 5.5 (4.5-7.5) Ur Specific [place] 1.021 (1.000-1.030) Urine Protein 2+ H (Negative) Urine Glucose (UA) Negative (Negative)
[2024-03-31] MEDS: carvediloL 12.5 MG TAB PO SCH (16:24)
[2024-03-31] MEDS: amLODIPine BESYLATE 5 MG TAB PO SCH (20:17)
[2024-04-01 06:07] LABS: Albumin Level 3.6 gm/dl (3.4-5.0); BUN Creatinine Ratio 10.4 (10-20); Bilirubin Direct 0.3 mg/dl (0-0.2); Bilirubin,Total 3.3 mg/dl (0.2-1.0); Calcium 8.5 mg/dl (8.6-10.3); Creatinine Clr Calc Pharmacy 41.3 ml/min; Est GFR (African American) 29.8 ml/min; Est GFR (Non-African American) 25.7 ml/min; Potassium 3.7 mmol/L (3.5-5.1); Total Protein 6.1 gm/dl (6.0-8.3)
[2024-04-01] MEDS ORDERED: LEVALBUTEROL 1.25 MG/3 ML NEB NEB PRN (08:39)
[2024-04-01] MEDS ORDERED: SODIUM CHLOR 7% 4 ML NEB NEB PRN (08:51)
[2024-04-01] MEDS ORDERED: amLODIPine BESYLATE 5 MG TAB PO SCH ×2 (09:00→12:30)
--- NOTE | 2024-04-01 09:17 | Hospitalist Progress Note ---
Date of Service April 01, 2024 Assessment & Plan (1) VENKAT (acute kidney injury): (2) Hypertensive urgency: (3) Multifocal pneumonia: Plan: 53-year-old male with history of hypertension and hypothyroidism Presenting with abnormal lab results from primary care physician's office. Acute renal failure Likely secondary to longstanding uncontrolled hypertension, underlying pneumonia Could have underlying CKD Unknown Baseline Cr Urinalysis showing protein, hyaline casts -Renal USD:No hydronephrosis. Slight increased cortical echogenicity bilaterally which could be technical. Early medical renal disease is not excluded. Cr 2.7 today Received IV fluids Avoid nephrotoxic agents as able Appreciate nephrology input Monitor renal function Patient needs follow-up with nephrology in 1 to 2 weeks upon discharge for further workup Hypertensive urgency Continue amlodipine, carvedilol Monitor BP and adjust medications as needed Amlodipine dose increased to 5 mg twice a day Coreg dose increased to 12.5 mg twice a day Added hydralazine 25 mg 3 times a day Monitor BP Multifocal pneumonia --CT chest:Multiple irregular airspace opacities seen within the bilateral mid to lower lung zones demonstrating a peripheral and basilar distribution. These demonstrate both groundglass and consolidative components. These findings favor an atypical/viral pneumonitis and could be related to Covid pneumonia. Multiple prominent mediastinal, hilar, and axillary lymph nodes. These are indeterminate but could be reactive to the suspected infectious process. [address] follow-up recommended to ensure resolution. -- Nasal MRSA negative Bio fire negative Normal procalcitonin Urine for Legionella pending Blood culture negative to date Continue Levaquin renally adjusted Saturating well on room air Nebs as needed Continue pulmonary hygiene with flutter, Mucinex, incentive spirometry Continue current management Diastolic dysfunction--likely chronic Elevated BNP BNP slightly elevated Mild troponin elevation--likely demand ischemia secondary to acute infection, hypertensive urgency --ECHO: Moderate concentric LVH. EF 65 to 70%. Grade 2 diastolic dysfunction. Borderline left atrial enlargement. No significant valvular disease. Monitor volume status Will consider adding diuretics once renal function improves Advised to follow-up with cardiology as outpatient Elevated bilirubin History of Gilbert syndrome as per patient Total Bilirubin 3.0>2.6 AST/ALT normal Liver USD: No hydronephrosis.Slight increased cortical echogenicity bilaterally which could be technical. Early medical renal disease is not excluded. Monitor LFTs Avoid hepatotoxic agents as able Elevated CK level CK 296>216 Episodes of palpitations H/O Hypothyroidism TSH elevated likely in setting of acute infection Normal free T4 Continue levothyroxine May need Zio patch as an outpatient Will need repeat thyroid function test as outpatient DVT prophylaxis Heparin SQ Code Status Full code Disposition Home Admission and Anticipated Discharge Date Admission Date: March 29, 2024 Subjective Patient is seen and examined at bedside Shortness of breath much improved Headache improved as well Minimal cough Discussed with rpg developer today Patient eager to get discharged Denies any chest pain, dizziness, nausea, vomiting, abdominal pain Review of Systems Review of Systems: All systems reviewed & are unremarkable except as noted in Subjective Physical Exam Physical Exam: Physical Exam: Vitals signs as noted above General Appearance:Moderately built and nourished, no apparent distress Head: normocephalic, Atraumatic Eyes: normal inspection, EOMI Neck: supple, Trachea midline Respiratory/Chest: Normal breath sounds, CTA, No accessory muscle use Cardiovascular: S1, S2, No murmur Abdomen/GI:Soft, Non tender, Bowel sounds present Extremities/Musculoskeletal:normal inspection, Trace extremity edema Neurologic/Psych:AAOX3, grossly no focal neurological deficits Skin: normal color, warm Results & Data Results & Data Vital Signs (Past 12 Hours) Vital Signs Temp Pulse Resp BP BP Pulse Ox O2 Del Method 04/01/24 07:42 170/98 H 04/01/24 07:40 36.6 C 89 18 164/101 H 96 Room Air 04/01/24 07:00 85 16 97 Room Air 04/01/24 03:32 36.6 C 89 18 156/85 H 97 Room Air 03/31/24 23:01 36.7 C 83 18 166/94 H 94 Room Air Laboratory Results [facility] 04/01/24 05:12 Sodium 136 Potassium 3.7 Chloride 104 Carbon Dioxide 24 BUN 28 H Creatinine 2.70 H Glucose 106 H Calcium 8.5 L Liver Function 04/01/24 Range/Units 05:12 Total Bilirubin 3.3 H (0.2-1.0) mg/dl Direct Bilirubin 0.3 H (0-0.2) mg/dl AST 28 (13-39) U/L ALT 13 (7-52) U/L Alkaline Phosphatase 35 (34-104) U/L Albumin 3.6 (3.4-5.0) gm/dl
--- NOTE | 2024-04-01 09:56 | Nephrology Progress Note ---
Date of Service April 01, 2024 Assessment & Plan Admission and Anticipated Discharge Date Admission Date: March 29, 2024 Subjective Assessment & Plan (1) VENKAT (acute kidney injury): At this point I do not have any baseline renal function to compare. As per patient he was never told he had abnormal kidney function. we will try to obtain medical records from his prior PCP who was with [facility]. but at this point we will go by what patient is saying and assume his baseline kidney function is normal. given this will call this as acute kidney injury. creatinine has been 2.4-2.5 range for 4 days now which is more suggestive of this being CKD. renal ultrasound was unremarkable. urine dipstick did not show significant findings. He does have moderate proteinuria of around half a gram by ratio in the setting of hypertensive urgency. This is not consistent with any type of glomerular nephritis or nephrotic syndrome. I will be repeating his UA and proteinuria check once blood pressure is stabilized. Stop RL. BP is high. Creat about same since 03/27--this is looking more like CKD. 1/2 gm proteinuria and no Micro hematuria. Alb near normal despite pneumonia and no Edema--Nothing to suggest GN or nephrotic Syndrome Creat was 2.5 on 03/27. dropped a bit with iv fluids ( Dilution). Now up a bit after IV fluid stopped and BP dropped. Can be now followed as outpt. he wants to go home. very critical he follows with nephrology clinic within next 1-2 weeks. he has to have renal panel, CBC, UA and Prot/creat by Nephrology RN this week--I have instructed my clinic Nurse. (2) Multifocal pneumonia: based on symptoms as well as imaging. It is being checked and treated. Consider CT of the chest as well as urine Legionella. Appears more like viral Pneumonia ? covid. (3) Hypertensive urgency: patient has had history of hypertension for while but has not been on medication. Patient has been started on amlodipine and carvedilol and with that blood pressure is starting to get better. most recent reading is 166 x 99 and that is acceptable for the time being. there is risk of renal decline if blood pressure drops very abruptly. For now Amlo to 5 bid and Coreg to 12.5 bid. Add Hydralazine 25 tid. Eventually would need ZOE/ARB and Diuretics also but that will be outpt (4) CHF (congestive heart failure): some finding of CHF on the imaging and given extremely high blood pressure I would recommend to do echocardiogram--Diastolic Dysfunction but LVEF Normal. S--BP still high but getting better. renal labs Similar. making urine. No new issues physical examination awake alert oriented x3 able to give detailed account of his medical problem. He does appear to be quite anxious. no respiratory distress mucous membrane is moist neck is supple no JVD chest bilateral occasional crackles at the bases. CVS S1-S2 regular abdomen is soft nontender extremities shows no edema skin shows no rash. Results & Data Vital Signs (Past 12 Hours) Vital Signs Temp Pulse Resp BP BP Pulse Ox O2 Del Method 04/01/24 07:42 170/98 H 04/01/24 07:40 36.6 C 89 18 164/101 H 96 Room Air 04/01/24 07:00 85 16 97 Room Air 04/01/24 03:32 36.6 C 89 18 156/85 H 97 Room Air 03/31/24 23:01 36.7 C 83 18 166/94 H 94 Room Air
[2024-04-01] MEDS ORDERED: hydrALAZINE HCL 25 MG TAB PO SCH (12:30)
[2024-04-01] MEDS ORDERED: carvediloL 12.5 MG TAB PO SCH (12:30)
[2024-04-01] MEDS ORDERED: Nursing to Pharmacy Communication SCH (12:30)
--- NOTE | 2024-04-01 12:32 | Discharge Summary ---
Date of Service April 01, 2024 Admission HPI Per Admitting Provider 53-year-old male with history of hypertension and hypothyroidism Presenting with abnormal lab results from primary care physician's office. Patient states he was under care of former PCP for hypertension and hypothyroid ism. He discontinued the medication for hypertension 3 months ago as it was giving him side effects. For the past month, patient has been having persistent cough productive of yellow,brown sputum associated with intermittent shortness of breath, and night sweats. He has also noted mild but progressive bilateral hand and lower leg swelling, as well as decreased urine output. No vomiting, diarrhea, NSAID use. Yesterday he transitioned to a new primary care physician Dr. Unruly Green who obtained blood work as well as chest x-ray. Creatinine was found to be at 2.5, chest x-ray showing multifocal pneumonia. He was prescribed with amlodipine 5 mg daily, and Levaquin 750 mg every 2 days and was directed to proceed to the ER. At the ER, patient was found to have blood pressure systolic 200s, and was given IV labetalol. On exam, patient seen sitting up in bed, comfortable, not in distress. States he feels tired, but denies active shortness of breath, chest pain, nausea, dizziness, palpitations. Admission Exam Per Admitting Provider General- oriented x 3, not in distress, speaks in sentences with no effort or accessory muscle use Head- atraumatic Eyes- PERRL, EOMI, anicteric ENT- oropharynx clear Neck- supple, no JVD, no adenopathy, no thyromegaly; carotids +2/2, no bruits appreciated Lungs- Very mild crackles at the bilateral bases No wheeze Heart- normal rate, regular rhythm; no murmur, no gallop, no rub appreciated Abdomen- normal bowel sounds, nondistended, soft, nontender, no masses or hepatosplenomegaly Extremities-Mild bilateral hand edema,trace no pretibial edema, no calf tenderness; peripheral pulses intact Neuro- alert, oriented x 3; CN 2-12 grossly intact; motor 5/5 bilatera lly;sensation 100% on all extremities; no other gross focal neurologic deficits Skin- warm & dry Principal Diagnosis Acute renal failure Hypertensive urgency Multifocal pneumonia Diastolic heart failure Discharge Data Allergies Allergy/AdvReac Type Severity Reaction Status Date / Time naproxen Allergy Intermediate SWELLING Verified 03/29/24 18:35 EYES AND LIPS Penicillins Allergy Intermediate HIVES, Verified 03/29/24 18:35 SWELLING amoxicillin Allergy Unknown Verified 03/29/24 18:35 Consultations 03/29/24 18:00 ED Decision to Admit Stat 03/29/24 21:31 Consult Nephrology Routine Procedures Performed Laboratory Results WBC 6.74 K/ul (4.8-10.8) 03/31/24 08:16 RBC 4.23 M/uL (4.70-6.10) L 03/31/24 08:16 Hgb 12.9 g/dl (14.0-18.0) L 03/31/24 08:16 Hct 38.5 % (42.0-52.0) L 03/31/24 08:16 MCV 91.0 fL (80.0-100.0) 03/31/24 08:16 MCH 30.5 pg (25.0-34.0) 03/31/24 08:16 MCHC 33.5 g/dL (32.0-36.0) 03/31/24 08:16 RDW Std Deviation 48.8 fL (36.4-46.3) H 03/31/24 08:16 RDW Coeff of Meena 14.7 % (11.5-14.5) H 03/31/24 08:16 Plt Count 166 K/uL (130-400) 03/31/24 08:16 MPV 9.7 fL (9.4-12.4) 03/31/24 08:16 Immature Gran % (Auto) 0.4 % 03/30/24 07: Neut % (Auto) 77.2 % 03/30/24 07:24 Lymph % (Auto) 8.7 % 03/30/24 07:24 Merrick % (Auto) 10.9 % 03/30/24 07:24 Eos % (Auto) 2.1 % 03/30/24 07:24 Baso % (Auto) 0.7 % 03/30/24 07:24 Neut # (Auto) 5.83 K/uL (1.40-6.50) 03/30/24 07:24 Lymph # (Auto) 0.66 K/uL (1.20-3.40) L 03/30/24 07:24 Merrick # (Auto) 0.82 K/uL (0.11-0.59) H 03/30/24 07:24 Eos # (Auto) 0.16 K/uL (0.00-0.50) 03/30/24 07:24 Baso # (Auto) 0.05 K/uL (0.00-0.20) 03/30/24 07:24 Immature Gran # (Auto) 0.03 K/uL (0.01-0.20) 03/30/24 07:24 PT 12.1 Seconds (9.0-12.0) H 03/29/24 15:56 INR 1.1 (0.9-1.1) 03/29/24 15:56 APTT 28 Seconds (21-31) 03/29/24 15:56 PTT Ratio 1.0 03/29/24 15:56 Sodium 136 mmol/L (136-145) 04/01/24 05:12 Potassium 3.7 mmol/L (3.5-5.1) 04/01/24 05:12 Chloride 104 mmol/L (98-107) 04/01/24 05:12 Carbon Dioxide 24 mmol/L (21-32) 04/01/24 05:12 Anion Gap 8 (3-11) 04/01/24 05:12 BUN 28 mg/dl (6-23) H 04/01/24 05:12 Creatinine 2.70 mg/dl (0.6-1.4) H 04/01/24 05:12 Est Cr Clr Drug Dosing 41.3 ml/min 04/01/24 05:12 Est GFR ( Amer) 29.8 ml/min 04/01/24 05:12 Est GFR (Non-Af Amer) 25.7 ml/min 04/01/24 05:12 BUN/Creatinine Ratio 10.4 (10-20) 04/01/24 05:12 Glucose 106 mg/dl (70-99(Fasting)) H 04/01/24 05:12 Calcium 8.5 mg/dl (8.6-10.3) L 04/01/24 05:12 Total Bilirubin 3.3 mg/dl (0.2-1.0) H 04/01/24 05:12 Direct Bilirubin 0.3 mg/dl (0-0.2) H 04/01/24 05:12 AST 28 U/L (13-39) 04/01/24 05:12 ALT 13 U/L (7-52) 04/01/24 05:12 Alkaline Phosphatase 35 U/L (34-104) 04/01/24 05:12 Total Creatine Kinase 209 U/L (30-223) 03/31/24 08:16 Troponin I High Sens 23.1 pg/ml (0-20) H 03/29/24 21:40 B-Natriuretic Peptide 340 pg/ml (0-100) H 03/29/24 15:56 Total Protein 6.1 gm/dl (6.0-8.3) 04/01/24 05:12 Albumin 3.6 gm/dl (3.4-5.0) 04/01/24 05:12 Globulin 2.6 gm/dl (2.5-4.0) 03/29/24 15:56 Albumin/Globulin Ratio 1.6 (0.9-2) 03/29/24 15:56 Procalcitonin 0.12 ng/ml (0-0.5) 03/31/24 08:16 TSH 18.168 uIu/ml (0.300-4.500) H 03/31/24 08:16 Free T4 1.23 ng/dl (0.61-1.60) 03/31/24 08:16 Urine Color Yellow 03/31/24 10:00 Urine Appearance Clear (Clear) 03/31/24 10:00 Urine pH 5.5 (4.5-7.5) 03/31/24 10:00 Ur Specific Reva 1.021 (1.000-1.030) 03/31/24 10:00 Urine Protein 2+ (Negative) H 03/31/24 10:00 Urine Glucose (UA) Negative (Negative) 03/31/24 10:00 Urine Ketones Negative (Negative) 03/31/24 10:00 Urine Blood Negative (Negative) 03/31/24 10:00 Urine Nitrite Negative (Negative) 03/31/24 10:00 Urine Bilirubin Negative (Negative) 03/31/24 10:00 Urine Urobilinogen Negative (Negative) 03/31/24 10:00 Ur Leukocyte Esterase Negative (Negative) 03/31/24 10:00 Urine WBC (Auto) 0-5 /hpf (0-5) 03/31/24 10:00 Urine RBC (Auto) 0-2 /hpf (0-2) 03/31/24 10:00 U Hyaline Cast (Auto) 3-5 /lpf (0-2) H 03/31/24 10:00 U Epithel Cells (Auto) 3-5 /hpf (0-2) H 03/31/24 10:00 Urine Bacteria (Auto) None Seen (None Seen) 03/31/24 10:00 Granular Casts Present /lpf (None Prsent) A 03/31/24 10:00 Ur Random Creatinine 226.9 mg/dl 03/31/24 10:08 U Random Total Protein 110.9 mg/dl (0-11.9) H 03/31/24 10:08 Protein/Creatinin Ratio 0.5 (0-0.2) H 03/31/24 10:08 Nasal Screen MRSA (PCR) Negative (Negative) 03/29/24 21:44 Adenovirus (PCR) Not Detected (NotDetected) 03/29/24 21:44 B. pertussis DNA (PCR) Not Detected (NotDetected) 03/29/24 21:44 B.parapertussis DNA PCR Not Detected (NotDetected) 03/29/24 21:44 C. pneumoniae DNA (PCR) Not Detected (NotDetected) 03/29/24 21:44 Coronavirus OC43 (PCR) Not Detected (NotDetected) 03/29/24 21:44 Coronavirus HKU1 (PCR) Not Detected (NotDetected) 03/29/24 21:44 Coronavirus 229E (PCR) Not Detected (NotDetected) 03/29/24 21:44 SARS-CoV-2 (PCR) Not Detected (NotDetected) 03/29/24 21:44 Coronavirus NL63 (PCR) Not Detected (NotDetected) 03/29/24 21:44 Human Metapneumovir PCR Not Detected (NotDetected) 03/29/24 21:44 Influenza Type A (PCR) Not Detected (NotDetected) 03/29/24 21:44 Influenza Type B (PCR) Not Detected (NotDetected) 03/29/24 21:44 M. pneumoniae (PCR) Not Detected (NotDetected) 03/29/24 21:44 Parainfluenza 1 (PCR) Not Detected (NotDetected) 03/29/24 21:44 Parainfluenza 2 (PCR) Not Detected (NotDetected) 03/29/24 21:44 Parainfluenza 3 (PCR) Not Detected (NotDetected) 03/29/24 21:44 Parainfluenza 4 (PCR) Not Detected (NotDetected) 03/29/24 21:44 RSV (PCR) Not Detected (NotDetected) 03/29/24 21:44 Entero/Rhino (PCR) Not Detected (NotDetected) 03/29/24 21:44 Impressions Chest X-Ray 03/29/24 15:48 XR chest 1V not portable HISTORY: 53 years-old Male Chest pain, nonspecific COMPARISON: 12/31/2020 TECHNIQUE: AP view of the chest FINDINGS: Cardiac silhouette is enlarged. Pulmonary vascular congestion. Left greater than right mid to lower lung zone and patchy multifocal nodular airspace opacities. No pneumothorax. Probable small pleural effusions. Bones appear grossly intact. IMPRESSION: 1. Peripheral and mid to lower lung zone predominate left greater than right multifocal airspace opacities suggestive of multifocal pneumonia. Short-term follow-up recommended in order to document resolution. 2. Pulmonary vascular congestion. 3. Equivocal small pleural effusions. ACT 112: Negative or not required by law. The above report was generated using voice recognition software. It may contain grammatical, syntax or spelling errors. Electronically signed by: Adam Aguilera M.D. 03/29/2024 5:[address] 03/29/24 21:31 CT chest diagnostic wo con CT DOSE: 771.18 mGy.cm HISTORY: Abnormal chest x-ray. Follow-up. multifocal pneumonia TECHNIQUE: Multiaxial CT images of the chest were performed without contrast. A dose lowering technique was utilized adhering to the principles of ALARA. COMPARISON: Chest x-ray 03/29/2024. Chest CT 07/24/2010. FINDINGS: The central airways are patent. No pneumothorax. No pleural effusions. Multiple irregular airspace opacities seen within the bilateral mid to lower lung zones demonstrating a peripheral and basilar distribution. These demonstrate both groundglass and consolidative components. These findings favor an atypical/viral pneumonitis and could be related to Covid pneumonia. No acute fractures within the chest. Limited views of the upper abdomen demonstrate normal liver, spleen, and adrenal glands. Normal esophagus. No pericardial effusion. The heart is normal in size. Normal caliber thoracic aorta. The multiple prominent mediastinal and bilateral hilar lymph nodes. These are likely reactive. There are are a few prominent bilateral axillary lymph nodes also noted. IMPRESSION: 1. Multiple irregular airspace opacities seen within the bilateral mid to lower lung zones demonstrating a peripheral and basilar distribution. These demonstrate both groundglass and consolidative components. These findings favor an atypical/viral pneumonitis and could be related to Covid pneumonia. 2. Multiple prominent mediastinal, hilar, and axillary lymph nodes. These are indeterminate but could be reactive to the suspected infectious process. [address] follow-up recommended to ensure resolution. ACT 112: Negative or not required by law. Electronically signed by: Marcell Duncan M.D. 03/30/2024 12:39 PM Liver Ultrasound 03/30/24 00:00 ABDOMINAL ULTRASOUND, RIGHT UPPER QUADRANT HISTORY: Elevated LFTs elevated bilirubin. COMPARISON: Abdominal ultrasound 01/18/2013, CT 01/02/2015 FINDINGS: Pancreas: The pancreas is mostly obscured by bowel gas. Liver: Measures 19 cm in length. No pancreatic mass identified. There is suggestion of subtle marginal nodularity of the liver. Gallbladder: Gallbladder polyps measure up to 3 mm. No shadowing cholelithiasis. CBD: 0.3 cm. Right kidney: No hydronephrosis. IMPRESSION: 1. No cholelithiasis or sonographic evidence of acute cholecystitis. 2. No biliary ductal dilation. 3. Gallbladder polyps measure up to 3 mm. 4. Equivocal marginal nodularity of the liver. Correlate with LFTs to exclude early cirrhosis. ACT 112: Negative or not required by law. Electronically signed by: Adam Aguilera M.D. 03/30/2024 7:08 AM Renal Ultrasound 03/30/24 00:00 RENAL ULTRASOUND HISTORY: acute renal failure COMPARISON: Abdomen and pelvis CT 06/20/2013. FINDINGS: Right kidney: 11.6 cm. No hydronephrosis. Normal cortical thickness. Slight increased cortical echogenicity. Left kidney: 11.3 cm. No hydronephrosis. Normal cortical thickness. Slight incre ased cortical echogenicity. Bladder: No bladder wall thickening. The bilateral ureteral jets were identified. IMPRESSION: 1. No hydronephrosis. 2. Slight increased cortical echogenicity bilaterally which could be technical. Early medical renal disease is not excluded. ACT 112: Negative or not required by law. Electronically signed by: Marcell Duncan M.D. 03/30/2024 8:46 AM Ordered Studies 03/29/24 21:31 CT chest diagnostic wo con Routine 03/30/24 US liver Routine US renal/blad retro comp Routine Hospital Course (1) VENKAT (acute kidney injury): (2) Hypertensive urgency: (3) Multifocal pneumonia: 53-year-old male with history of hypertension and hypothyroidism Presenting with abnormal lab results from primary care physician's office. Acute renal failure Likely secondary to longstanding uncontrolled hypertension, underlying pneumonia Could have underlying CKD Unknown Baseline Cr Urinalysis showing protein, hyaline casts -Renal USD:No hydronephrosis. Slight increased cortical echogenicity bilaterally which could be technical. Early medical renal disease is not excluded. Cr 2.7 today Received IV fluids Avoid nephrotoxic agents as able Appreciate nephrology input Monitor renal function Patient needs follow-up with nephrology in 1 to 2 weeks upon discharge for further workup Hypertensive urgency Continue amlodipine, carvedilol Monitor BP and adjust medications as needed Amlodipine dose increased to 5 mg twice a day Coreg dose increased to 12.5 mg twice a day Added hydralazine 25 mg 3 times a day Monitor BP Multifocal pneumonia --CT chest:Multiple irregular airspace opacities seen within the bilateral mid to lower lung zones demonstrating a peripheral and basilar distribution. These demonstrate both groundglass and consolidative components. These findings favor an atypical/viral pneumonitis and could be related to Covid pneumonia. Multiple prominent mediastinal, hilar, and axillary lymph nodes. These are indeterminate but could be reactive to the suspected infectious process. [address] follow-up recommended to ensure resolution. -- Nasal MRSA negative Bio fire negative Normal procalcitonin Urine for Legionella pending Blood culture negative to date Continue Levaquin renally adjusted Saturating well on room air Nebs as needed Continue pulmonary hygiene with flutter, Mucinex, incentive spirometry Continue current management Diastolic dysfunction--likely chronic Elevated BNP BNP slightly elevated Mild troponin elevation--likely demand ischemia secondary to acute infection, hypertensive urgency --ECHO: Moderate concentric LVH. EF 65 to 70%. Grade 2 diastolic dysfunction. Borderline left atrial enlargement. No significant valvular disease. Monitor volume status Will consider adding diuretics once renal function improves Advised to follow-up with cardiology as outpatient Elevated bilirubin History of Gilbert syndrome as per patient Total Bilirubin 3.0>2.6 AST/ALT normal Liver USD: No hydronephrosis.Slight increased cortical echogenicity bilaterally which could be technical. Early medical renal disease is not excluded. Monitor LFTs Avoid hepatotoxic agents as able Elevated CK level CK 296>216 Episodes of palpitations H/O Hypothyroidism TSH elevated likely in setting of acute infection Normal free T4 Continue levothyroxine May need Zio patch as an outpatient Will need repeat thyroid function test as outpatient DVT prophylaxis Heparin SQ Code Status Full code Disposition Home Total Time Total Time Spent Total Time Spent (In Minutes): 64 minutes Discharge Plan Discharge Items Patient Disposition: Home - Self-Care Reason For Visit: ACUTE RENAL FAILURE Discharge Diagnosis: Acute renal failure Hypertensive urgency Multifocal pneumonia Diastolic heart failure Activity: Per Instructions section Exercise/Sports: Wait until after follow-up appointment Non-emergency contact: Primary Care Provider, Event Sales Manager and Therapeutic Dietitian Call non-emergency contact if: you have any medication questions, your symptoms worsen, your pain is concerning for you and you have a fever Follow-up/Referrals: Cinda Zafar MD [Primary Care Provider] - Diet: Heart Healthy Addtl Attending Provider Instructions: Follow-up with your primary care physician Dr. Unruly Green in 1 week Follow-up with your journalism instructor Dr. Stephens in 1 week Follow-up with your material handler 1st shift for further evaluation of diastolic heart failure in 2-3 weeks --Monitor your blood pressure regularly at home. Discuss with your physician for further adjustment of medications as needed. -- Get blood work (basic metabolic panel) in 1 week and follow-up with your physician for monitoring your renal function. --Get repeat Thyroid Function test in 3-4 weeks as advised --Complete the antibiotic Levaquin course as prescribed --Your final blood/Sputum cultures are pending at the time of discharge. Follow up with your physician for results. Seek immediate medical attention if your symptoms reoccur or worsen Please take all medications as instructed on discharge list below. Please call if you have any questions or problems. You can reach a [facility] hospitalist on duty at [facility] 24 hours a day by calling [phone] Pending Studies at Discharge: Yes Studies:: Final blood cultures, sputum culture, urine for Legionella Stand-Alone Forms: My [facility], Smoking Cessation Medications and DC Order Prescriptions: New carvedilol 12.5 mg Tablet 12.5 mg PO BIDM Qty: 60 0RF hydralazine 25 mg Tablet 25 mg PO TID 30 Days Qty: 90 0RF Continued fluticasone propionate 50 mcg/actuation spray,suspension 2 spray intranasal DAILY Qty: 15.8 6RF Rx Instructions: administer into each nostril levothyroxine 200 mcg tablet 200 mcg PO DAILY multivitamin with minerals Tablet 1 tab PO DAILY guaifenesin [Mucinex] 600 mg Tablet Extended Release 12hr 600 mg PO Q12H PRN (Reason: Congestion) levofloxacin 750 mg Tablet 750 mg PO Q OTHER DAY Qty: 4 0RF Rx Instructions: Started on 03/29/24 - x 10 day supply (only 5 tablets dispensed) Changed amlodipine 10 mg Tablet 5 mg PO BID Qty: 60 0RF Discharge Orders: Discharge Order (Routine); Ordered 04/01/24 Ordered By: Seferino Bateman Admission Data Admit Date/Time: 03/29/24 18:27 Attending Provider: Seferino Bateman Admit Provider: Deric Simpson Primary Care Provider: Cinda Zafar Other Providers: Deric Simpson; Ellyn Rose Other Interventions: Discharge Summary Assessment (RN) Last Done: 04/01/24 12:20
[2024-04-01] MEDS: hydrALAZINE HCL 25 MG TAB PO SCH (13:03)
== END 2024-04-01 13:16 | disposition home or self-care (01) | DRG 682 ==
LOC: ED 15:40 → SUATTDRO 18:27 → 2S 18:27

== ENCOUNTER 2024-07-09 06:58 | Inpatient (IN) ==
--- OUTSIDE RECORDS SUMMARY | 2024-07-09 07:08 | External Medical Summary | Summary of Care ---
Author Name Unknown Organization [facility] Address [address] [place] [address] Phone [phone] Care Team Providers Care Trimmer Machine Name Role Phone Sonya Dacosta MD Primary Care Provider [phone] Reason for Visit * Reason Onset Date Comments Precert Denied 06/21/2024 59155 EXERCISE S TRESS ON THE SCHEDULE FOR IMVU ON 06/28/2024 Encounter Details Date Type Department Care Team (Late st Contact Info) Description 06/21/2024 Telephone Family Medicine [address] [address] Cinda Schneider MD [address] [place] [address] [place] [address] Precert Denied (15302 EXERCISE STRESS ON T... Allergies Active Allergy Reactions Criticality Noted Date Comments Amoxicillin Hives 02/07/2014 Nsaids Edema face/lips/tongue High 02/07/2014 Penicillins Hives 02/07/2014 documented as of this encounter (statuses as of 06/27/2024) Medications Medication Sig Dispensed Refills Start Date End Date Status Levothyroxine Sodium 200 MCG Oral Tablet (Levoxyl) Take 1 Tablet by mouth in the morning. Takes at bedtime . 12/28/2023 Active Multivitamin Adult (Minerals) Oral Tablet 1 Tablet in the morning. 03/29/2024 Active Vitamin D3 50 MCG (2000 UT) Oral Capsule Take 1 Capsule by mouth in the morning. 90 Capsule 3 04/11/2024 Active Ventolin HFA 108 (90 Base) MCG/ACT Inhalation Aerosol SolutionIndication s:Bronchitis, complicated Inhale 2 Puffs by mouth 4 times a day as needed for Wheezing. 18 g 1 04/23/2024 Active amLODIPine Besylate 10 MG Oral Tablet (Norvasc)Indicatio ns:Hypertension goal BP (blood pressure) < 140/90 Take 0.5 Tablets by mouth in the morning and 0.5 Tablets before bedtime. 90 Tablet 5 05/28/2024 Active Sevelamer Carbonate 800 MG Oral Tablet (Renvela) Take 1 Tablet by mouth in the morning and 1 Tablet at noon and 1 Tablet in the evening. Take with meals. 30 Tablet 05/28/2024 Active Carvedilol 25 MG Oral Tablet (Coreg) Take 1 Tablet by mouth 2 times a day with morning and evening meals. 60 Tablet 05/28/2024 06/25/2024 Discontinued (Refill) documented as of this encounter (statuses as of 06/27/2024) Active Problems Problem Noted Date Diagnosed Date Renal hematoma, left 05/22/2024 ESRD (end stage renal disease) 05/22/2024 Page kidney 05/22/2024 VENKAT (acute kidney injury) 05/22/2024 Stage 3 chronic kidney disease 05/22/2024 Hyperphosphatemia 05/22/2024 Anemia due to stage 3 chronic kidney disease 11/2023 Acute blood loss anemia 05/22/2024 HTN, goal below 140/90 04/20/2024 Chronic kidney disease with symptom management only, stage 4 (severe) 04/20/2024 Acquired hypothyroidism 04/20/2024 Rib pain on right side 03/27/2024 Costochondritis 03/27/2024 documented as of this encounter (statuses as of 06/27/2024) Resolved Problems Problem Noted Date Diagnosed Date Resolved Date Abdominal pain 05/22/2024 05/27/2024 documented as of this encounter (statuses as of 06/27/2024) Social History Tobacco Use Types Packs/Day Years Used Date Smoking Tobacco: Never Smokeless Tobacco: Never Alcohol Use Standard Drinks/Week Comments Not Currently 0 (1 standard drink = 0.6 oz pur e alcohol) 2 beers a month Hunger Vital Sign Answer Date Recorded Within the past 12 months, y ou worried that your food would run out before you got the money to buy more. Never true 04/26/20 24 Within the past 12 months, t he food you bought just didn't last and you didn't have money to get more. Never true 04/26/2024 Childcare Answer Date Recorded Do you feel overwhelmed with taking care of a child, family member or friend? No 04/26/2024 Does your family need help f inding childcare? (Household - for ages 0-17 years) Not on file 04/26/2024 Clothing Answer Date Recorded Have you been unable to get clothing when it was really needed? No 04/26/2024 Is your family able to get c lothes or diapers when needed? (Household - for ages 0-17 years) Not on file 04/26/2024 Personal Safety Answer Date Recorded Do you feel unsafe or have concerns for your saf ety? No 04/26/2024 Do you have concerns for you r family's safety? (Household - for ages 0-17 years) Not on file 04/26/2024 Utilities Answer Date Recorded Do you have trouble paying y our heating, water, or electric bill? No 04/26/2024 Is your family able to pay t he heat, water, or electric bill? (Household - for ages 0-17 years) Not on file 04/26/2024 Does your family have access to good internet? (Household - for ages 0-17 years) Not on file 04/26/2024 Employment Status Answer Date Recorded Are you unemployed or without regular income? No 04/26/2024 Does the household have a re gular source of income? (Household - for ages 0-17 years) Not on file 04/26/2024 Social Connections Answer Date Recorded How often do you feel lonely or isolated from th ose around you? Rarely 04/26/2024 Financial Resource Strain Answer Date R ecorded Do you have any trouble payi ng for your medications, or do you think you might in the future? No 04/26/2024 Does your family have troubl e paying for medicine? (Household - for ages 0-17 years) Not on file 04/26/2024 Transportation Needs Answer Date Record ed Do you have trouble getting a ride to medical visits or work? (Adult - for ages 18 years and over) Not on file 04/26/2024 Does your family have a hard time getting a ride to doctors visits? (Household - for ages 0-17 years) Not on file 04/26/2024 Has lack of transportation k ept you from medical appointments, meetings, work, or from getting things needed for daily living? Check all that apply. No 04/26/2024 Do you (or your family) have trouble finding or paying for a ride (transportation)? (Household - for ages 0-17 years) Not on file 04/26/2024 Housing Stability Answer Date Recorded Do you currently live in a s helter or have no steady place to sleep at night? No 04/26/2024 Do you think you are at risk of becoming homeless? (Adult - for ages 18 years and over) Not on file 04/26/2024 Does your family worry about paying for your home or becoming homeless? (Household - for ages 0-17 years) Not on file 0 04/26/2024 Are you homeless or worried that you might be in the future? No 04/26/2024 Are you (or your family) sterling eless or worried that you might be in the future? (Household - for ages 0-17 years) Not on file Food Insecurity Answer Date Recorded Do you need food for this week? No 04/26/2024 Are you able to get enough f ood for your family? (Household - for ages 0-17 years) Not on file 04/26/2024 Does your family need food t his week? (Household - for ages 0-17 years) Not on file 04/26/2024 Do you always have enough fo od for your family? (Household - for ages 0-17 years) Not on file 04/26/2024 Sex and Gender Information Value Date Recorded Sex Assigned at Male 04/26/2024 5:10 PM EDT Gender Identity Male 04/26/2024 5:10 PM EDT Sexual Orientation Straight 04/26/2024 5: 10 PM EDT Job Start Date Occupation Industry Not on file Not on file Not on file documented as of this encounter Functional Status Functional Status Response Date of Assess ment Are you deaf or do you have serious difficulty h earing? No 05/22/2024 Are you blind or do you have serious difficulty seeing, even when wearing glasses? No 05/22/2024 Do you have serious difficul ty walking or climbing stairs? (5 years old or older) No 05/22/2024 Do you have difficulty dress ing or bathing? (5 years old or older) No 05/22/2024 Because of a physical, menta l, or emotional condition, do you have difficulty doing errands alone such as visiting a doctor s office or shopping? (15 years old or older) No 05/22/20 Cognitive Status Response Date of Assessm ent Because of a physical, menta l, or emotional condition, do you have serious difficulty concentrating, remembering, or making decisions? (5 years old or older) No 05/22/2024 documented as of this encounter Miscellaneous Notes * Addendum Note - Betty Higgins LPN - 06/27/2024 9:04 AM EDTAddended by: BETTY HIGGINS on: 06/27/2024 09:04 AM Modules accepted: Orders * Telephone Encounter - Betty Higgins LPN - 06/27/2024 9:03 AM EDT Order pended, I'm not sure if this is correct. * Telephone Encounter - Marlyn Hilliard OSA - 06/26/2024 9:30 AM EDT I will need an order to schedule a treadmill. Thanks. * Telephone Encounter - Cinda Schneider MD - 06/21/2024 3:36 PM EDT Peer to Peer completed with Dr Davison from [facility]. Dr Davison [facility] #[id number] Stress echocardiogram denied. Dr Davison recommends treadmill stress test instead stating this is required as per his guidelines. Please inform patient and schedule treadmill stress test. * Telephone Encounter - Cinda Schneider MD - 06/21/2024 11:10 AM EDT Peer to Peer scheduled with Dr Lencho Davison today 330pm Insurance has denied recommended cardiac stress test as per Angeli Guevara with [facility]. * Telephone Encounter - Gali Macedo OSA - 06/21/2024 9:05 AM EDT Good Morning, Following up on this case and per the [facility] construction representative Jordana Muhammad the case had DENIED for the 57267 Stress Echo on the schedule for 06/28/2024 ar Geovanni Correa. Per [facility] this is the DENIAL RATIONAL: Your request was denied because Your doctor told us that there is a concern related to the blood vessels in your heart. We cannot approve this request because: Imaging can be done for one of these reasons when you do not have symptoms. -Before you start a medication (Interleukin-2). -Results show decreased blood flow to your heart during testing (exercise stress test). -Other reason listed in this guideline. The notes sent to us do not describe this reason for imaging. This finding was based on review of [facility] - If you would like to completed a PEER TO PEER you can call to schedule at option 4 and provide the case# [id number] and Doctor's NPI# [id number]. Please advise me as well as the patient on how you wish to proceed. Thank you, Gali Barrett documented in this encounter Plan of Treatment Upcoming Encounters Date Type Department Care Team (Late st Contact Info) Description 07/25/2024 10:40 AM EST Office Visit Nephrology, Em[facility] Davison [address] [place] [address] Juliano Stephens MD [address] [place] [address] 08/09/2024 10:30 AM EST Office Visit Cardiology, [facility] [place] [address] [place] [address] Palak Meier CRNP [address] [place] [address] Scheduled Orders Name Type Priority Associated Diagnoses Orde r Schedule CV STRESS TREADMILL (TRACE) EKG Routine Abnormal EKG Atypical chest pain Ordered: 06/21/2024 Health Maintenance Due Date Last Done Comments Pneumococcal Vaccine: Pediatrics (0 to 5 Years) and At-Risk Patients (6 to 64 Years) (1 of 2 - PCV) 1976 Depression Screening 1982 DTap/Tdap Vaccines (1 - Tdap) 1989 Hepatitis B Vaccine (1 of 3 - 19+ 3-dose series) 1989 Cologuard 11/26/2015 Colonoscopy 11/26/2015 Colorectal Cancer Screening 11/26/2015 Fecal Occult Blood Test 11/26/2015 Sigmoidoscopy 11/26/2015 Zoster Vaccines (1 of 2) 2020 COVID-19 Vaccine (1 - season) 2024 Influenza Vaccine (FLU shot) (#1) 2024 07/04/2013, 07/24/2012 TSH 04/20/2025 04/20/2024, 03/27/2024 Diabetes Screening 06/18/2027 06/18/2024, 0 05/28/2024, 05/27/2024, Additional history exists Lipid Panel 03/27/2029 03/27/2024 Nephrology Referral Discontinued 04/06/2024 HPV (Gardasil) Vaccine Aged Out No lo nger eligible based on patient's age to complete this topic MENINGOCOCCAL (MENACTRA/MENVEO) Aged Out No longer eligible based on patient's age to complete this topic documented as of this encounter Medical Devices Implanted Type Area Chemical Equipment Controller Device Identifier Shelf Expiration Date Model / Serial / Lot Coil Emboli Tornado 3x2 - [id number] Implanted:Qty: 1 on 05/22/[address] [facility] [employer] [id number] 11/14/2028 [id number] / / [id number] Coil Fibered 2 10mm [id number] - [id number] Implanted:Qty: 1 on 05/22/[address] [facility] [employer] : NEURO INTR [id number] 08/08/2026 [id number] / / [id number] Coil Emboli Tornado 3x2 - [id number] Implanted:Qty: 1 on 05/22/[address] [facility] [employer] [id number] 09/08/2028 [id number] / / [id number] Coil Emboli Tornado 3x2 - [id number] Implanted:Qty: 1 on 05/22/[address] [facility] [employer] [id number] 08/22/2028 [id number] / / [id number] Cath Diag Cobra 2 [id number] - [id number] Implanted:Qty: 1 on 05/22/[address] [facility] [employer] [id number] 07/24/2026 H78 [id number] / / [id number] documented as of this encounter Visit Diagnoses Diagnosis Abnormal EKG- Primary Nonspecific abnormal electrocardiogram (ECG) (EKG) Atypical chest pain Other chest pain documented in this encounter Advance Directives * Full Code (Latest Code Status on File) Date Activated Date Inactivated Comments 05/22/2024 2:26 PM 05/28/2024 7:07 PM This order ref lects the patients wishes and were consensually agreed upon. Question Answer Comments Discussion of Advance Direct deng occurred with: Not Discussed due to patient's condition * Full Code Date Activated Date Inactivated Comments 05/22/2024 7:48 AM 05/22/2024 2:26 PM This order ref lects the patients wishes and were consensually agreed upon. Question Answer Comments Discussion of Advance Directives occurred with: Patient Care Teams Trimmer Machine Relationship Specialty Start Date End Date Sonya Dacosta MD [address] [place] [address] [place] [address] PCP - General Family Medicine 04/27/24 documented as of this encounter
--- OUTSIDE RECORDS SUMMARY | 2024-07-09 07:08 | External Medical Summary | Summary of Care ---
Author Name Unknown Organization [facility] Address [address] [place] [address] Phone [phone] Care Team Providers Care Np Name Role Phone Soyna Dacosta MD Primary Care Provider [phone] Reason for Visit * Reason Onset Date Comments Precert Denied 06/21/2024 72768 EXERCISE S TRESS ON THE SCHEDULE FOR App Press ON 06/28/2024 Encounter Details Date Type Department Care Team (Late st Contact Info) Description 06/21/2024 Telephone Family Medicine [address] [address] Cinda Schneider MD [address] [place] [address] [place] [address] Precert Denied (57633 EXERCISE STRESS ON T... Allergies Active Allergy Reactions Criticality Noted Date Comments Amoxicillin Hives 02/07/2014 Nsaids Edema face/lips/tongue High 02/07/2014 Penicillins Hives 02/07/2014 documented as of this encounter (statuses as of 06/25/2024) Medications Medication Sig Dispensed Refills Start Date [...] HFA 108 (90 Base) MCG/ACT Inhalation Aerosol SolutionIndications:B ronchitis, complicated Inhale 2 Puffs by mouth 4 times a day as needed for Wheezing. 18 g 1 04/23/2024 Active amLODIPine Besylate 10 MG Oral Tablet (Norvasc)Indications: Hypertension goal BP (blood pressure) < 140/90 Take 0.5 Tablets by mouth in the morning and 0.5 Tablets before bedtime. 90 Tablet 5 05/28/2024 Active Carvedilol 25 MG Oral Tablet (Coreg) Take 1 Tablet by mouth 2 times a day with morning and evening meals. 60 Tablet 05/28/2024 Active Sevelamer Carbonate 800 MG Oral Tablet (Renvela) Take 1 Tablet by mouth in the morning and 1 Tablet at noon and 1 Tablet in the evening. Take with meals. 30 Tablet 05/28/2024 Active documented as of this encounter (statuses as of 06/25/2024) Active Problems Problem Noted Date Diagnosed Date [...] as of this encounter (statuses as of 06/25/2024) Resolved Problems Problem Noted Date Diagnosed Date Resolved Date Abdominal pain 05/22/2024 05/27/2024 documented as of this encounter (statuses as of 06/25/2024) Social History Tobacco Use Types Packs/Day Years [...] No 04/26/2024 Does the household have a [facility] source of income? (Household - for ages [...] as of this encounter Miscellaneous Notes * Telephone Encounter - Cinda Schneider MD - 06/21/2024 3:36 PM EDT Peer to Peer completed with Dr Davison from [facility] [employer] [place] Davison NPI #[id number] Stress echocardiogram denied. Dr Davison recommends treadmill stress test instead stating this is required as per his guidelines. Please inform patient and schedule treadmill stress test. * Telephone Encounter - Cinda Schneider MD - 06/21/2024 11:10 AM EDT Peer to Peer scheduled with Dr Lencho Davison today 330pm Insurance has denied recommended cardiac stress test as per Angeli Guevara with [email or web address]. * Telephone Encounter - Gali Macedo OSA - 06/21/2024 9:05 AM EDT Good Morning, Following up on this case and per the [employer] representative Jordana Muhammad the case had DENIED for the 87340 Stress Echo on the schedule for 06/28/2024 maritza Correa. Per [employer] this is the DENIAL RATIONAL: Your request [...] This finding was based on review of [facility] Cardiac Imaging Guidelines - If you would like to completed a PEER TO PEER you can call to schedule at option 4 and provide the case# [id number] and Doctor's NPI# [id number]. Please advise me as well as the patient on how you wish to proceed. Thank you, Gali Barrett documented in this encounter Plan of Treatment Upcoming Encounters Date Type Department Care Team (Late st Contact Info) Description 07/25/2024 10:40 AM EST Office Visit Nephrology, [facility] [address] [facility] [address] [place] [address] Juliano Stephens MD [address] [facility] [place] [address] 08/09/2024 10:30 AM EST Office Visit Cardiology, [facility] [address] [place] [address] Palak Meier CRNP [address] [place] [address] Scheduled Orders Name Type Priority Associated Diagnoses [...] Vaccines (1 of 2) 2020 COVID-19 Vaccine (2023- season) 2024 Influenza Vaccine (FLU shot) (#1) [...] this encounter Medical Devices Implanted Type Area Archeology Faculty Member Device Identifier Shelf Expiration Date Model / Serial / Lot Coil Emboli Tornado 3x2 - [id number] Implanted:Qty: 1 on 05/22/2024 at [facility] [id number] 11/14/2028 [id number] / / [id number] Coil Fibered 2 10mm [id number] - [id number] Implanted:Qty: 1 on 05/22/2024 at [facility] [employer] : NEUR[employer] INTR [id number] 08/08/2026 [id number] / / [id number] Coil Emboli Tornado 3x2 - [id number] Implanted:Qty: 1 on 05/22/2024 at [facility] [id number] 09/08/2028 [id number] / / [id number] Coil Emboli Tornado 3x2 - [id number] Implanted:Qty: 1 on 05/22/2024 at [facility] [id number] 08/22/2028 [id number] / / [id number] Cath Diag Cobra 2 [id number] - [id number] Implanted:Qty: 1 on 05/22/2024 at [facility] [employer] [id number] 07/24/2026 H78 [id number] / / [id number] documented as of this encounter Visit Diagnoses [...] Advance Directives occurred with: Patient Care Teams Np Relationship Specialty Start Date End Date Sonya Dacosta MD [address] [place] [address] PCP - General Family Medicine 04/27/24 documented as of this encounter
--- OUTSIDE RECORDS SUMMARY | 2024-07-09 07:08 | External Medical Summary ---
Author Name Unknown Address Unknown Organization K09:[facility] [place] [address] Laboratory Report Ordering Provider Test Date Status DEBORAH SANCHEZ 06/18/2024 10:14:01 Final Observation Date Value Abnormality Reference (Units ) Status WBC, Total 06/18/2024 10:14:01 6.33 4.00-10.8 0 (K/uL) Final RBC 06/18/2024 10:14:01 3.20 4.50-5.25 (M/uL) Final Hemoglobin 06/18/2024 10:14:01 9.6 Below low normal 14 .0-16.8 (g/dL) Final HCT 06/18/2024 10:14:01 30.7 Below low normal 40. 0-48.4 (%) Final MCV 06/18/2024 10:14:01 95.9 82.0-99.5 (fL) Final MCH 06/18/2024 10:14:01 30.0 27.0-34.0 (pg) Final MCHC 06/18/2024 10:14:01 31.3 32.0-36.0 (g/dL) Final RDW 06/18/2024 10:14:01 16.8 11.5-15.5 (%) Final Platelets 06/18/2024 10:14:01 258 140-400 (K /uL) Final MPV 06/18/2024 10:14:01 8.3 6.6-11.1 ( fL) Final Performing Location [facility] [place] [place] [address]
--- OUTSIDE RECORDS SUMMARY | 2024-07-09 07:08 | External Medical Summary | Summary of Care ---
Author Name Unknown Organization [facility] Address [address] [place] [address] Phone [phone] Care Team Providers Care Foreign Student Adviser Name Role Phone Sonya Dacosta MD Primary Care Provider [phone] Reason for Visit * Reason Onset Date Comments Precert Denied 06/21/2024 55054 EXERCISE S TRESS ON THE SCHEDULE FOR [employer] ON 06/28/2024 Encounter Details Date Type Department Care Team (Late st Contact Info) Description 06/21/2024 Telephone Family Medicine [address] [address] Cinda Schneider MD [address] [place] [address] [place] [address] Precert Denied (66654 EXERCISE STRESS ON T... Allergies Active Allergy [...] encounter Miscellaneous Notes * Addendum Note - Cinda Schneider MD - 06/27/2024 1:07 PM EDT Addended by: CINDA ZAMORA on: 06/27/2024 01:07 PM Modules accepted: Orders * Addendum Note - Betty Higgins LPN - 06/27/2024 9:04 AM EDTAddended by: BETTY HIGGINS on: 06/27/2024 09:04 AM Modules accepted: Orders * Telephone Encounter - Betty Higigns LPN - 06/27/2024 9:03 AM EDT Order pended, I'm not sure if this is correct. * Telephone Encounter - Marlyn Hilliard OSA - 06/26/2024 9:30 AM EDT I will need an order to schedule a treadmill. Thanks. * Telephone Encounter - Cinda Schneider MD - 06/21/2024 3:36 PM EDT Peer to Peer completed with Dr Davison from [facility]. Dr Davison NPI #[id number] Stress echocardiogram denied. Dr Davison recommends treadmill stress test instead stating this is required as per his guidelines. Please inform patient and schedule treadmill stress test. * Telephone Encounter - Cinda Schneider MD - 06/21/2024 11:10 AM EDT Peer to Peer scheduled with Dr Lencho Davison today 330pm Insurance has denied recommended cardiac stress test as per Angeli Guevara with [facility] Insurance. * Telephone Encounter - Gali Macedo OSA - 06/21/2024 9:05 AM EDT Good Morning, Following up on this case and per the [facility] insurance sales representative Jordana Muhammad the case had DENIED for the 29533 Stress Echo on the schedule for 06/28/2024 ar Geovanni Correa. Per [facility] this is the DENIAL RATIONAL: Your request [...] This finding was based on [facility] of [facility] - If you would like to completed a PEER TO PEER you can call to schedule at option 4 and provide the case# [id number] and Doctor's NPI# [id number]. Please advise me as well as the patient on how you wish to proceed. Thank you, Gali Barrett documented in this encounter Plan of Treatment Upcoming Encounters Date Type Department Care Team (Late st Contact Info) Description 07/25/2024 10:40 AM EST Office Visit Nephrology, [facility] [address] [place] [address] Juliano Stephens MD [address] [facility] [address] [place] [address] 08/09/2024 10:30 AM EST Office Visit Cardiology, [facility] [address] [place] [address] Palak Meier CRNP [address] [place] [address] Scheduled Orders Name Type Priority Associated Diagnoses Orde r Schedule CV STRESS TREADMILL (TRACE) EKG Routine Abnormal EKG Atypical chest pain Ordered: 06/21/2024 STRESS TREADMILL Echocardiology Routine Abnormal EKG Atypical chest pain Ordered: 06/27/2024 Health Maintenance Due Date Last Done Comments [...] this encounter Medical Devices Implanted Type Area Auditor Tax Device Identifier Shelf Expiration Date Model / Serial / Lot Coil Emboli Tornado 3x2 - [id number] Implanted:Qty: 1 on 05/22/2024 at [facility] [id number] 11/14/2028 [id number] / / [id number] Coil Fibered 2 10mm [id number] - [id number] Implanted:Qty: 1 on 05/22/2024 at [facility] [employer] [id number] 08/08/2026 [id number] / / [id number] Coil Emboli Tornado 3x2 - [id number] Implanted:Qty: 1 on 05/22/2024 at [facility] [id number] 09/08/2028 [id number] / / [id number] Coil Emboli Tornado 3x2 - [id number] Implanted:Qty: 1 on 05/22/2024 at [facility] [id number] 08/22/2028 [id number] / / [id number] Cath Diag Cobra 2 [id number] - [id number] Implanted:Qty: 1 on 05/22/2024 at [facility] [employer] [id number] 07/24/2026 H78 [id number] / / [id number] documented as of this encounter Visit Diagnoses [...] Advance Directives occurred with: Patient Care Teams Foreign Student Adviser Relationship Specialty Start Date End Date Sonya Dacosta MD [address] [place] [address] PCP - General Family Medicine 04/27/24 documented as of this encounter
--- OUTSIDE RECORDS SUMMARY | 2024-07-09 07:08 | External Medical Summary | Summary of Care ---
Author Name Unknown Organization [facility] Address [address] [place] [address] Phone [phone] Care Team Providers Care Cd Mixer Name Role Phone Sonya Dacosta MD Primary Care Provider [phone] Reason for Visit * Reason Onset Date Comments Precert Denied 06/21/2024 04032 EXERCISE S TRESS ON THE SCHEDULE FOR [employer] ON 06/28/2024 Encounter Details Date Type Department Care Team (Late st Contact Info) Description 06/21/2024 Telephone Family Medicine [address] [address] Cinda Schneider MD [address] [place] [address] [place] [address] Precert Denied (76997 EXERCISE STRESS ON T... Allergies Active Allergy Reactions Criticality Noted Date Comments Amoxicillin Hives 02/07/2014 Nsaids Edema face/lips/tongue High 02/07/2014 Penicillins Hives 02/07/2014 documented as of this encounter (statuses as of 06/29/2024) Medications Medication Sig Dispensed Refills Start Date [...] as of this encounter (statuses as of 06/29/2024) Active Problems Problem Noted Date Diagnosed Date [...] as of this encounter (statuses as of 06/29/2024) Resolved Problems Problem Noted Date Diagnosed Date Resolved Date Abdominal pain 05/22/2024 05/27/2024 documented as of this encounter (statuses as of 06/29/2024) Social History Tobacco Use Types Packs/Day Years [...] encounter Miscellaneous Notes * Telephone Encounter - Marlyn Hilliard OSA - 06/29/2024 8:33 AM EDT Can you take a look at the test ordered and see if it can be done at [facility]. Exercise stress echo ordered first and then denied by insurance and order for treadmill placed. It will not give me an option to schedule it at [facility]. Thanks for your help. * Addendum Note - Cinda Schneider MD [...] to Peer completed with Dr Davison from [facility]. Dr Davison NPI #[id number] Stress echocardiogram denied. Dr Davison recommends treadmill stress test instead stating this is required as per his guidelines. Please inform patient and schedule treadmill stress test. * Telephone Encounter - Cinda Scnheider MD - 06/21/2024 11:10 AM EDT Peer to Peer scheduled with Dr Lencho Davison today 330pm Insurance has denied recommended cardiac stress test as per Angeli Guevara with [facility] Insurance. * Telephone Encounter - Gali Macedo OSA - 06/21/2024 9:05 AM EDT Good Morning, Following up on this case and per the [employer] lead generation representative Jordana Muhammad the case had DENIED for the 03151 Stress Echo on the schedule for 06/28/2024 ar Geovanni Correa. Per [employer] this is the DENIAL RATIONAL: Your request [...] at option 4 and provide the case# [id number] and Doctor's NPI# [id number]. Please advise me as well as the patient on how you wish to proceed. Thank you, Gali Barrett documented in this encounter Plan of Treatment Upcoming Encounters Date Type Department Care Team (Late st Contact Info) Description 07/25/2024 10:40 AM EST Office Visit Nephrology, [facility] [address] [facility] [place] [address] Juliano Stephens MD [address] [facility] [place] [address] 08/09/2024 10:30 AM EST Office Visit Cardiology, [facility] [address] [place] [address] Palak Meier CRNP [address] [place] [address] Scheduled Orders Name Type Priority Associated Diagnoses [...] (1 of 2) 2020 COVID-19 Vaccine ( season) 2024 Influenza Vaccine (FLU shot) (#1) [...] this encounter Medical Devices Implanted Type Area Order Entry Technician Device Identifier Shelf Expiration Date Model / Serial / Lot Coil Emboli Tornado 3x2 - [id number] Implanted:Qty: 1 on 05/22/2024 at [facility] [id number] 11/14/2028 [id number] / / [id number] Coil Fibered 2 10mm 638298 - [id number] Implanted:Qty: 1 on 05/22/2024 at [facility] [employer] [id number] 08/08/2026 [id number] / / [id number] Coil Emboli Tornado 3x2 - [id number] Implanted:Qty: 1 on 05/22/2024 at [facility] [id number] 09/08/2028 [id number] / / [id number] Coil Emboli Tornado 3x2 - [id number] Implanted:Qty: 1 on 05/22/2024 at [facility] [id number] 08/22/2028 [id number] / / [id number] Cath Diag Cobra 2 1lml52rb - [id number] Implanted:Qty: 1 on 05/22/2024 at [facility] [employer] [id number] 07/24/2026 H78 [id number] / / [id number] documented as of this encounter Visit Diagnoses [...] Advance Directives occurred with: Patient Care Teams Cd Mixer Relationship Specialty Start Date End Date Sonya Dacosta MD [address] [place] [address] PCP - General Family Medicine 04/27/24 documented as of this encounter
--- OUTSIDE RECORDS SUMMARY | 2024-07-09 07:08 | External Medical Summary | Summary of Care ---
Author Name Unknown Organization [facility] Address [address] [place] [address] Phone [phone] Care Team Providers Care Bale Tie Machine Operator Name Role Phone Sonya Dacosta MD Primary Care Provider [phone] Reason for Visit * Reason Onset Date Comments Precert Denied 06/21/2024 07358 EXERCISE S TRESS ON THE SCHEDULE FOR [employer] ON 06/28/2024 Encounter Details Date Type Department Care Team (Late st Contact Info) Description 06/21/2024 Telephone Family Medicine [address] [address] Cinda Schneider MD [address] [place] [address] [place] [address] Precert Denied (70946 EXERCISE STRESS ON T... Allergies Active Allergy Reactions Criticality Noted Date Comments Amoxicillin Hives 02/07/2014 Nsaids Edema face/lips/tongue High 02/07/2014 Penicillins Hives 02/07/2014 documented as of this encounter (statuses as of 06/26/2024) Medications Medication Sig Dispensed Refills Start Date [...] as of this encounter (statuses as of 06/26/2024) Active Problems Problem Noted Date Diagnosed Date [...] as of this encounter (statuses as of 06/26/2024) Resolved Problems Problem Noted Date Diagnosed Date Resolved Date Abdominal pain 05/22/2024 05/27/2024 documented as of this encounter (statuses as of 06/26/2024) Social History Tobacco Use Types Packs/Day Years [...] to Peer completed with [facility] Dav[facility] from [facility] Dr Davison NPI #[id number] Stress echocardiogram denied. Dr Davison recommends treadmill stress test instead stating this is required as per his guidelines. Please inform patient and schedule treadmill stress test. * Telephone Encounter - Cinda Schneider MD - 06/21/2024 11:10 AM EDT Peer to Peer scheduled with Dr Lencho aDvison today 330pm Insurance has denied recommended cardiac stress test as per Angeli Guevara with [facility] [facility]. * Telephone Encounter - Gali Macedo OSA - 06/21/2024 9:05 AM EDT Good Morning, Following up on this case and per the [employer] customer contact representative Jordana Muhammad the case had DENIED for the 49028 Stress Echo on the schedule for 06/28/2024 ar Geovanni Correa. [facility] this is the DENIAL RATIONAL: [...] This finding was based [place] [facility] [place] [facility] [place] - If you would like to completed a PEER TO PEER you can call to schedule at option 4 and provide the case# [id number] and Doctor's NPI# [id number]. Please advise me as well as the patient on how you wish to proceed. Thank you, Gali Barrett documented in this encounter Plan of Treatment Upcoming Encounters Date Type Department Care Team (Late st Contact Info) Description 07/25/2024 10:40 AM EST Office Visit Nephrology, [facility] [address] [place] [address] Juliano Stephens MD [address] [place] [address] 08/09/2024 10:30 AM EST Office Visit [facility]iology[facility]ane [place] [address] [place] [address] Palak Meier CRNP [address] [place] [address] Scheduled Orders Name Type Priority Associated Diagnoses [...] of 2) 2020 COVID-19 Vaccine (1 - 2023- season) 2024 Influenza Vaccine (FLU shot) (#1) [...] this encounter Medical Devices Implanted Type Area Assistant Shift Supervisor Device Identifier Shelf Expiration Date Model / Serial / Lot Coil Emboli Jefe 3x2 - [id number] Implanted:Qty: 1 on 05/22/2024 at [facility] [id number] 11/14/2028 [id number] / / [id number] Coil Fibered 2 10mm 132864 - [id number] Implanted:Qty: 1 on 05/22/2024 at [facility] [employer] [id number] 08/08/2026 [id number] / / [id number] Coil Emboli Tornado 3x2 - [id number] Implanted:Qty: 1 on 05/22/2024 at [facility] [id number] 09/08/2028 [id number] / / [id number] Coil Emboli Tornado 3x2 - [id number] Implanted:Qty: 1 on 05/22/2024 at [facility] [id number] 08/22/2028 [id number] / / [id number] Cath Diag Cobra 2 2for60ds - [id number] Implanted:Qty: 1 on 05/22/2024 at [facility] [employer] [id number] 07/24/2026 H78 [id number] / / [id number] documented as of this encounter Visit Diagnoses [...] Advance Directives occurred with: Patient Care Teams Bale Tie Machine Operator Relationship Specialty Start Date End Date Sonya Dacosta MD [address] [place] [address] PCP - General Family Medicine 04/27/24 documented as of this encounter
--- OUTSIDE RECORDS SUMMARY | 2024-07-09 07:08 | External Medical Summary | Summary of Care ---
Author Name Unknown Organization [facility] Address [address] [place] [address] Phone [phone] Care Team Providers Care Senior Vice President & General Counsel Name Role Phone Sonya Dacosta MD Primary Care Provider [phone] Reason for Visit * Reason Onset Date Comments Precert Denied 06/21/2024 36837 EXERCISE S TRESS ON THE SCHEDULE FOR [employer] ON 06/28/2024 Encounter Details Date Type Department Care Team (Late st Contact Info) Description 06/21/2024 Telephone Family Medicine [address] [address] Cinda Schneider MD [address] [place] [address] [place] [address] Precert Denied (37751 EXERCISE STRESS ON T... Allergies Active Allergy [...] to Peer completed with Dr Davison from [facility]. Dr Davison NPI #[id number] Stress echocardiogram denied. Dr Davison recommends treadmill stress test instead stating this is required as per his guidelines. Please inform patient and schedule treadmill stress test. * Telephone Encounter - Cinda Schneider MD - 06/21/2024 11:10 AM EDT Peer to Peer scheduled with Dr Lencho Davison today 330pm Insurance has denied recommended cardiac stress test as per Angeli Guevara with [facility]. * Telephone Encounter - Gali Macedo OSA - 06/21/2024 9:05 AM EDT Good Morning, Following up on this case and per the [employer] human resources representative Jordana Muhammad the case had DENIED for the 30880 Stress Echo on the schedule for 06/28/2024 ar Geovanni Correa. Per [facility] this is the DENIAL RATIONAL: Your request [...] This finding was based on [facility] of [facility] [place] [facility] - If you would like to completed a PEER TO PEER you can call to schedule at option 4 and provide the case# [id number] and Doctor's NPI# [id number]. Please advise me as well as the patient on how you wish to proceed. Thank you, Gali Barrett documented in this encounter Plan of Treatment Upcoming Encounters Date Type Department Care Team (Late st Contact Info) Description 07/25/2024 10:40 AM EST Office Visit Nephrology, [facility] [address] [place] [address] [address] Juliano Stephens MD [address] [place] [address] 08/09/2024 10:30 AM EST Office Visit Cardiology[place]ane [place] [address] [place] [address] Palak Meier CRNP [address] [place] [address] Scheduled Orders Name Type Priority Associated Diagnoses [...] this encounter Medical Devices Implanted Type Area Cosmetic Account Coordinator Device Identifier Shelf Expiration Date Model / Serial / Lot Coil Emboli Jefe 3x2 - [id number] Implanted:Qty: 1 on 05/22/2024 at [facility] [id number] 11/14/2028 [id number] / / [id number] Coil Fibered 2 10mm 048706 - [id number] Implanted:Qty: 1 on 05/22/2024 at [facility] [employer] [id number] 08/08/2026 [id number] / / [id number] Coil Emboli Tornado 3x2 - [id number] Implanted:Qty: 1 on 05/22/2024 at [facility] [id number] 09/08/2028 [id number] / / [id number] Coil Emboli Tornado 3x2 - [id number] Implanted:Qty: 1 on 05/22/2024 at [facility] [employer] [id number] 08/22/2028 [id number] / / [id number] Cath Diag Cobra 2 [id number] - [id number] Implanted:Qty: 1 on 05/22/2024 at [facility] [employer] [id number] 07/24/2026 H78 [id number] / / [id number] documented as of this encounter Visit Diagnoses [...] Advance Directives occurred with: Patient Care Teams Senior Vice President & General Counsel Relationship Specialty Start Date End Date Sonya Dacosta MD [address] [place] [address] PCP - General Family Medicine 04/27/24 documented as of this encounter
--- OUTSIDE RECORDS SUMMARY | 2024-07-09 07:08 | External Medical Summary | Summary of Care ---
Author Name Unknown Organization [facility] Address [address] [place] [address] Phone [phone] Care Team Providers Care Chartered Accountant Name Role Phone Sonya Dacosta MD Primary Care Provider Reason for Visit * Reason Comments Outpatient Testing Encounter Details Date Type Department Care Team (Late st Contact Info) Description 06/18/2024 10:20 AM EDT Laboratory Laboratory [facility] [address] [place] [id number] [facility] Lab [facility] [address] [facility] [place] [address] Chronic kidney disease with symptom management only, stage 4 (severe) ([facility]) Allergies Active Allergy Reactions Criticality Noted Date Comments Amoxicillin Hives 02/07/2014 Nsaids Edema face/lips/tongue High 02/07/2014 Penicillins Hives 02/07/2014 documented as of this encounter (statuses as of 06/18/2024) Medications Medication Sig Dispensed Refills Start Date End Date Status Levothyroxine Sodium 200 MCG Oral Tablet (Levoxyl) Take 1 Tablet by mouth in the morning. Takes at bedtime . 12/28/2023 Active Multivitamin Adult (Minerals) Oral Tablet 1 Tablet in the morning. 03/29/2024 Active Vitamin D3 50 MCG (1999 UT) Oral Capsule Take 1 Capsule by mouth in the morning. 90 Capsule 3 04/11/2024 Active Ventolin HFA 108 (90 Base) MCG/ACT Inhalation Aerosol SolutionIndications:B joanatis, complicated Inhale 2 Puffs by mouth 4 [...] as of this encounter (statuses as of 06/18/2024) Active Problems Problem Noted Date Diagnosed Date [...] as of this encounter (statuses as of 06/18/2024) Resolved Problems Problem Noted Date Diagnosed Date Resolved Date Abdominal pain 05/22/2024 05/27/2024 documented as of this encounter (statuses as of 06/18/2024) Social History Tobacco Use Types Packs/Day Years [...] (15 years old or older) No 05/22/20 24 Cognitive Status Response Date of Assessm ent Because of a physical, menta l, or emotional condition, do you have serious difficulty concentrating, remembering, or making decisions? (5 years old or older) No 05/22/2024 documented as of this encounter Plan of Treatment Upcoming Encounters Date Type Department Care Team (Late st Contact Info) Description 06/28/2024 8:30 AM EDT Imaging Cardiac Studies, [facility] [address] [facility] [place] [address] 07/25/2024 10:40 AM EST Office Visit Nephrology, [facility] [address] [facility] [address] [place] [address] Juliano Stephens MD 200 [facility] [place] [address] 08/09/2024 10:30 AM EST Office Visit Cardiology, [facility] [address] [facility] [place] [address] Palak Meier CRNP 132 [facility] [place] [address] Pending Results Name Type Priority Associated Diagnoses Date /Time RENAL FUNCTION PANEL Lab STAT Chronic kidney disease with symptom management only, stage 4 (severe) (HCC) 06/18/2024 10:14 AM EDT Health Maintenance Due Date Last [...] of 2) 2020 COVID-19 Vaccine ( - season) 2024 Influenza Vaccine (FLU shot) (#1) 2024 07/04/2013, 07/24/2012 TSH 04/20/2025 04/20/2024, 03/27/2024 Diabetes Screening 05/28/2027 05/28/2024, 0 05/27/2024, 05/26/2024, Additional history exists Lipid Panel 03/27/2029 03/27/2024 Nephrology Referral Discontinued 04/06/2024 HPV (Gardasil) Vaccine Aged Out No lo nger eligible based on patient's age to complete this topic MENINGOCOCCAL (MENACTRA/MENVEO) Aged Out No longer eligible based on patient's age to complete this topic documented as of this encounter Medical Devices Implanted Type Area Farmer General Device Identifier Shelf Expiration Date Model / Serial / Lot Coil Emboli Tornado 3x2 - [id number] Implanted:Qty: 1 on 05/22/2024 at [facility] [id number] 11/14/2028 [id number] / / [id number] Coil Fibered 2 10mm [id number] - [id number] Implanted:Qty: 1 on 05/22/2024 at [facility] [employer] : NEURO INTR [id number] 08/08/2026 [id number] / / [id number] Coil Emboli Tornado 3x2 - [id number] Implanted:Qty: 1 on 05/22/2024 at [facility] [id number] 09/08/2028 [id number] / / [id number] Coil Emboli Tornado 3x2 - [id number] Implanted:Qty: 1 on 05/22/2024 at [facility] [id number] 08/22/2028 [id number] / / [id number] Cath Diag Cobra 2 [id number] - [id number] Implanted:Qty: 1 on 05/22/2024 at [facility] [employer] [id number] 07/24/2026 H78 [id number] / / [id number] documented as of this encounter Procedures Procedure Name Priority Date/Time Associated Diagnosis Comments CBC STAT 06/18/2024 10:14 AM EDT Chronic kidney disease with symptom management only, stage 4 (severe) (HCC) documented in this encounter Results * (ABNORMAL) CBC (06/18/2024 10:14 AM EDT) WBC 6.33 4.00 - 10.80 K/uL 06/18/2024 10:22 AM EDT [place] [address] RBC 3.20 4.50 - 5.25 M/uL 06/18/2024 10:22 AM EDT [place] [address] HGB 9.6(L) 14.0 - 16.8 g/dL 06/18/2024 10:22 AM EDT [place] [address] HCT 30.7(L) 40.0 - 48.4 % 06/18/2024 10:22 AM EDT [place] [address] MCV 95.9 82.0 - 99.5 fL 06/18/2024 10:22 AM EDT [place] [address] MCH 30.0 27.0 - 34.0 pg 06/18/2024 10:22 AM EDT [place] [address] MCHC 31.3 32.0 - 36.0 g/dL 06/18/2024 10:22 AM EDT [place] [address] RDW 16.8 11.5 - 15.5 % 06/18/2024 10:22 AM EDT [address] 140 - 400 K/uL 06/18/2024 10:22 AM EDT [place] [address] MPV 8.3 6.6 - 11.1 fL 06/18/2024 10:22 AM T [place] [address] Blood Venous blood specimen / Unknown Venipuncture / Unknown 06/18/2024 10:14 AM EDT 06/18/2024 10:14 AM EDT Ellyn Rose MD LAB BLOOD ORDERABLES [facility] 56-02 200 [place] [address] documented in this encounter Visit Diagnoses Diagnosis Chronic kidney disease with symptom management only, stage 4 (severe) (HCC) documented in this encounter Advance Directives * [...] Advance Directives occurred with: Patient Care Teams Chartered Accountant Relationship Specialty Start Date End Date Sonya Dacosta MD [facility] [address] PCP - General Family Medicine 04/27/24 documented as of this encounter
--- OUTSIDE RECORDS SUMMARY | 2024-07-09 07:08 | External Medical Summary | Summary of Care ---
Author Name Unknown Organization [facility] Address [address] [place] [address] Phone [phone] Care Team Providers Care Small Wind Energy Installer Name Role Phone Sonya Dacosta MD Primary Care Provider [phone] Reason for Visit * Reason Onset Date Comments Precert Denied 06/21/2024 36690 EXERCISE S TRESS ON THE SCHEDULE FOR [employer] ON 06/28/2024 Encounter Details Date Type Department Care Team (Late st Contact Info) Description 06/21/2024 Telephone Family Medicine [address] [address] Cinda Schneider MD [address] [place] [address] [place] [address] Precert Denied (41849 EXERCISE STRESS ON T... Allergies Active Allergy Reactions Criticality Noted Date Comments Amoxicillin Hives 02/07/2014 Nsaids Edema face/lips/tongue High 02/07/2014 Penicillins Hives 02/07/2014 documented as of this encounter (statuses as of 06/22/2024) Medications Medication Sig Dispensed Refills Start Date [...] as of this encounter (statuses as of 06/22/2024) Active Problems Problem Noted Date Diagnosed Date [...] as of this encounter (statuses as of 06/22/2024) Resolved Problems Problem Noted Date Diagnosed Date Resolved Date Abdominal pain 05/22/2024 05/27/2024 documented as of this encounter (statuses as of 06/22/2024) Social History Tobacco Use Types Packs/Day Years [...] No 04/26/2024 Does the household have a [facility] source of income? (Household - for ages [...] to Peer completed [facility] Davison NPI #[id number] Stress echocardiogram denied. Dr Davison recommends treadmill stress test instead stating this is required as per his guidelines. Please inform patient and schedule treadmill stress test. * Telephone Encounter - Cinda Schneider MD - 06/21/2024 11:10 AM EDT Peer to Peer scheduled with Dr Lencho Davison today 330pm Insurance has denied recommended cardiac stress test as per [facility]eli [facility]uevara [facility] * Telephone Encounter - Gali Macedo OSA - 06/21/2024 9:05 AM EDT Good Morning, Following up on this case and per the [employer] sales representative [employer] Jordana Muhammad the case had DENIED for the 47821 Stress Echo on the schedule for 06/28/2024 [...] at option 4 and provide the case# [id number] and Doctor's NPI# [id number]. Please advise me as well as the patient on how you wish to proceed. Thank you, Gali Barrett documented in this encounter Plan of Treatment Upcoming Encounters Date Type Department Care Team (Late st Contact Info) Description 06/28/2024 8:30 AM EDT [facility] [address] [place] [address] 07/25/2024 10:40 AM EST [facility] [address] [facility] [address] Juliano Stephens MD [address] [facility] [place] [address] 08/09/2024 10:30 AM EST [facility] [address] [place] [address] Palak Meier CRNP [address] [place] [address] Scheduled Orders Name Type Priority Associated Diagnoses [...] this encounter Medical Devices Implanted Type Area Membership Sales Advisor Device Identifier Shelf Expiration Date Model / Serial / Lot Coil Emboli Tornado 3x2 - [id number] Implanted:Qty: 1 on 05/22/2024 at [facility] [id number] 11/14/2028 [id number] / / [id number] Coil Fibered 2 10mm [id number] - [id number] Implanted:Qty: 1 on 05/22/2024 at [facility] [employer] : NEURO INTR [id number] 08/08/2026 [id number] / / [id number] Coil Emboli Tornado 3x2 - [id number] Implanted:Qty: 1 on 05/22/2024 at [facility] [id number] 09/08/2028 [id number] / / [id number] Coil Emboli Tornado 3x2 - [id number] Implanted:Qty: 1 on 05/22/2024 at [facility] [id number] 08/22/2028 [id number] / / [id number] Cath Diag Cobra 2 [id number] - [id number] Implanted:Qty: 1 on 05/22/2024 at [facility] [employer] [id number] 07/24/2026 H78 [id number] / / [id number] documented as of this encounter Visit Diagnoses [...] Advance Directives occurred with: Patient Care Teams Small Wind Energy Installer Relationship Specialty Start Date End Date Sonya Dacosta MD [address] [place] [address] PCP - General Family Medicine 04/27/24 documented as of this encounter
--- OUTSIDE RECORDS SUMMARY | 2024-07-09 07:08 | External Medical Summary | Summary of Care ---
Author Name Unknown Organization [facility] Address [address] [place] [address] Phone [phone] Care Team Providers Care Scrap Worker Name Role Phone Sonya Dacosta MD Primary Care Provider [phone] Reason for Visit * Reason Onset Date Comments Precert Denied 06/21/2024 42847 EXERCISE S TRESS ON THE SCHEDULE FOR [employer] ON 06/28/2024 Encounter Details Date Type Department Care Team (Late st Contact Info) Description 06/21/2024 Telephone Family Medicine [address] [address] Cinda Schneider MD [address] [place] [address] [place] [address] Precert Denied (21419 EXERCISE STRESS ON T... Allergies Active Allergy [...] to Peer completed with Dr Davison from [facility]. Dr Davison NPI #[id number] Stress echocardiogram denied. Dr Davison recommends treadmill stress test instead stating this is required as per his guidelines. Please inform patient and schedule treadmill stress test. * Telephone Encounter - Cinda Schneider MD - 06/21/2024 11:10 AM EDT Peer to Peer scheduled with Dr Lencho Davison today 330pm Insurance has denied recommended cardiac stress test as per Angeli Guevara with [facility]. * Telephone Encounter - Gali Macedo OSA - 06/21/2024 9:05 AM EDT Good Morning, Following up on this case and per the [facility] computer help desk representative Jordana Muhammad the case had DENIED for the 11537 Stress Echo on the schedule for 06/28/2024 ar Geovanni Correa. Per [facility] this is the DENIAL RATIONAL: Your request [...] This finding was based on review of [facility] - If you would like to completed a PEER TO PEER you can call to schedule at option 4 and provide the case# [id number] and Doctor's NPI# [id number]. Please advise me as well as the patient on how you wish to proceed. Thank you, Gali Barrett documented in this encounter Plan of Treatment Upcoming Encounters Date Type Department Care Team (Late st Contact Info) Description 07/25/2024 10:40 AM EST Office Visit Nephrology, [facility] 200 [facility] [place] [address] Juliano Stephens MD [address] [facility] [place] [address] 08/09/2024 10:30 AM EST Office Visit Cardiology, [facility] [address] [place] [address] Palak Meier CRNP [address] [place] [address] Scheduled Orders Name Type Priority Associated Diagnoses [...] this encounter Medical Devices Implanted Type Area Geothermal Field Technician Device Identifier Shelf Expiration Date Model / Serial / Lot Coil Emboli Tornado 3x2 - [id number] Implanted:Qty: 1 on 05/22/2024 at [facility] [id number] 11/14/2028 [id number] / / [id number] Coil Fibered 2 10mm [id number] - [id number] Implanted:Qty: 1 on 05/22/2024 at [facility] [employer] [id number] 08/08/2026 [id number] / / [id number] Coil Emboli Tornado 3x2 - [id number] Implanted:Qty: 1 on 05/22/2024 at [facility] [id number] 09/08/2028 [id number] / / [id number] Coil Emboli Tornado 3x2 - [id number] Implanted:Qty: 1 on 05/22/2024 at [facility] [id number] 08/22/2028 [id number] / / [id number] Cath Diag Cobra 2 [id number] - [id number] Implanted:Qty: 1 on 05/22/2024 at [facility] [employer] [id number] 07/24/2026 H78 [id number] / / [id number] documented as of this encounter Visit Diagnoses [...] Advance Directives occurred with: Patient Care Teams Scrap Worker Relationship Specialty Start Date End Date Sonya Dacosta MD [address] [place] [address] PCP - General Family Medicine 04/27/24 documented as of this encounter
--- OUTSIDE RECORDS SUMMARY | 2024-07-09 07:09 | External Medical Summary ---
Author Name Unknown Address Unknown Organization K01:LABORATORY [facility] - [address] [place] [address] Laboratory Report Ordering Provider Test Date Status MARC VUONG 05/28/2024 11:46:38 Final Observation Date Value Abnormality Reference (Units ) Status ABO 05/28/2024 11:46:38 B Final RH 05/28/2024 11:46:38 Positive Final RED BLOOD CELL ANTIBODY SCREEN 05/28/2024 11:46:38 Negative Final SPECIMEN EXPIRATION DATE 05/28/2024 11:46:38 05/31/2024 23:59 Final Performing Location LABORATORY [facility] - [address] [address]
--- OUTSIDE RECORDS SUMMARY | 2024-07-09 07:09 | External Medical Summary | Summary of Care ---
Author Name Unknown Organization [facility] Address [address] [place] [address] Phone [phone] Care Team Providers Care Human Services Worker Name Role Phone Sonya Dacosta MD Primary Care Provider [phone] Reason for Visit * Reason Onset Date Comments Medication Refill 06/11/2024 Encounter Details Date Type Department Care Team (Late st Contact Info) Description 06/11/2024 Refill [facility]rologyEmeli 200 [facility] [place] [address] Juliano Stephens MD [address] [facility] [place] [address] Allergies Active Allergy Reactions Criticality Noted Date Comments Amoxicillin Hives 02/07/2014 Nsaids Edema face/lips/tongue High 02/07/2014 Penicillins Hives 02/07/2014 documented as of this encounter (statuses as of 06/13/2024) Medications Medication Sig Dispensed Refills Start Date [...] as of this encounter (statuses as of 06/13/2024) Active Problems Problem Noted Date Diagnosed Date [...] as of this encounter (statuses as of 06/13/2024) Resolved Problems Problem Noted Date Diagnosed Date Resolved Date Abdominal pain 05/22/2024 05/27/2024 documented as of this encounter (statuses as of 06/13/2024) Social History Tobacco Use Types Packs/Day Years [...] encounter Miscellaneous Notes * Telephone Encounter - Anila Knight LPN - 06/12/2024 3:29 PM EDT Spoke with Alexsandra in dialysis This rx was sent in Pt is aware He will check with Pharmacy Pt is having difficult time with dialysis States he calls and they never give answers Pt requesting call regarding his many questions * Telephone Encounter - Anila Knight LPN - 06/11/2024 4:27 PM EDT Pt is aware RF request was sent to [facility] in [place] they will manage Rx refills Nurse will follow up in AM * Telephone Encounter - Kelsea Montoya OSA - 06/11/2024 3:54 PM EDT Pt called in . They have questions regarding his medication refill and missing a day or two unil its filled . Please call [phone] * Telephone Encounter - Anila Knight LPN - 06/11/2024 12:33 PM EDTRefused Prescriptions: Disp Refills Sevelamer Carbonate 800 MG Oral Tablet (Re*30 Tab*0 Sig: Take 1 Tablet by mouth in the morning and 1 Tablet at noon and 1 Tablet in the evening. Take with meals. Refused By: ANILA KNIGHT Reason for Refusal: Other (comment below) Reason for Refusal Comment: Managed by dialysis * Telephone Encounter - Anila Knight LPN - 06/11/2024 12:30 PM EDT This is a dialysis patient Will fax to [facility] * Telephone Encounter - Rachel Tobar bullet lubricating machine operator - 06/11/2024 8:35 AM EDT Pts calling in requesting refill request be sent to Dr. Stephens. states she put a requestin over the weekend, but realized it went [place] the provider in [place]. states patient is down to 1 tablet. also states patient has been waiting to see Dr. Stephens; pt is at dialysis today and was hoping to meet with him. Ru. Thank you, Rachel Tobar Mortician Investigator I [facility] 06/11/2024,8:36 AM * Telephone Encounter - Rachel Tobar bullet lubricating machine operator - 06/11/2024 8:29 AM EDT Patient is up to date for office visits. Pending Prescriptions: Disp Refills Sevelamer Carbonate 800 MG Oral Tablet (R*30 Tab*0 Sig: Take 1 Tablet by mouth in the morning and 1 Tablet at noon and 1 Tablet in the evening. Take with meals. Last Visit: 04/06/2024 (in office), Visit date not found (telemedicine) Next Visit: Visit date not found If no future appointments scheduled, and last appointment is greater than a year ago, please schedule patient for a follow-up appointment Last date the medication was ordered: 05/28/2024 Pharmacy: [id number] [address] Is this request for a controlled substance?No it is not controlled. Urine Drug Screen:No results found for this or any previous visit. Patient Phone Numbers Labs: Lab Results Component Value Date/Time CREAT 8.0 (H) 05/28/2024 06:13 AM POTASSIUM 4.4 05/28/2024 06:13 AM POTASSIUM 4.4 04/06/1997 08:12 AM TSH 6.52 (H) 04/20/2024 01:37 PM LDL 76 03/27/2024 09:15 AM ALT 32 05/22/2024 12:03 AM HGBA1C 5.2 03/27/2024 09:15 AM documented in this encounter Plan of Treatment Upcoming Encounters Date Type Department Care Team (Late st Contact Info) Description 06/18/2024 10:20 AM EDT Laboratory Laboratory [facility] [place] [address] [place] [address] [id number] Nelson Davison [address] [place] [address] [address] 06/28/2024 8:30 AM EDT Imaging Cardiac Studies, [facility] [place] 132 [facility] [place] [address] 07/25/2024 10:40 AM EST Office Visit Nephrology, [facility] [address] [place] [address] Juliano Stephens MD [address] [place] [address] 08/09/2024 10:30 AM EST [facility] 132 [facility] [place] [address] Palak Meier CRNP [address] [place] [address] Health Maintenance Due Date Last Done Comments [...] this encounter Medical Devices Implanted Type Area Lead Retail Sales Associate Device Identifier Shelf Expiration Date Model / Serial / Lot Coil Emboli Tornado 3x2 - [id number] Implanted:Qty: 1 on 05/22/2024 at [facility] [id number] 11/14/2028 [id number] / / [id number] Coil Fibered 2 10mm [id number] - [id number] Implanted:Qty: 1 on 05/22/2024 at [facility] [employer] [id number] 08/08/2026 [id number] / / [id number] Coil Emboli Tornado 3x2 - [id number] Implanted:Qty: 1 on 05/22/2024 at [facility] [id number] 09/08/2028 [id number] / / [id number] Coil Emboli Tornado 3x2 - [id number] Implanted:Qty: 1 on 05/22/2024 at [facility] [id number] 08/22/2028 [id number] / / [id number] Cath Diag Cobra 2 [id number] - [id number] Implanted:Qty: 1 on 05/22/2024 at [facility] [employer] [id number] 07/24/2026 H78 [id number] / / [id number] documented as of this encounter Advance Directives * Full Code [...] Advance Directives occurred with: Patient Care Teams Human Services Worker Relationship Specialty Start Date End Date Sonya Dacosta MD [address] [place] [address] PCP - General Family Medicine 04/27/24 documented as of this encounter
--- OUTSIDE RECORDS SUMMARY | 2024-07-09 07:09 | External Medical Summary | Summary of Care ---
Author Name Unknown Organization [facility] Address [address] [place] [address] Phone [phone] Care Team Providers Care Construction Electrician Name Role Phone Sonya Dacosta MD Primary Care Provider [phone] Reason for Visit * Reason Onset Date Comments Medication Refill 06/11/2024 Encounter Details Date Type Department Care Team (Late st Contact Info) Description 06/11/2024 Refill [facility]rologyEmeli [address] [facility] [place] [address] Juliano Stephens MD [address] [facility] [place] [address] Allergies Active Allergy Reactions Criticality Noted Date Comments Amoxicillin Hives 02/07/2014 Nsaids Edema face/lips/tongue High 02/07/2014 Penicillins Hives 02/07/2014 documented as of this encounter (statuses as of 06/11/2024) Medications Medication Sig Dispensed Refills Start Date [...] as of this encounter (statuses as of 06/11/2024) Active Problems Problem Noted Date Diagnosed Date [...] as of this encounter (statuses as of 06/11/2024) Resolved Problems Problem Noted Date Diagnosed Date Resolved Date Abdominal pain 05/22/2024 05/27/2024 documented as of this encounter (statuses as of 06/11/2024) Social History Tobacco Use Types Packs/Day Years [...] RF request was sent to [facility] in [place] they will manage Rx refills Nurse will follow up in AM * Telephone Encounter - Kelsea Montoya OSA - 06/11/2024 3:54 PM EDT Pt called in . They have questions regarding his medication refill and missing a day or two unil its filled . Please call [phone] * Telephone Encounter - Anila Knight LPN [...] is a dialysis patient Will fax to [facility] * Telephone Encounter - Rachel Tobar keg header - 06/11/2024 8:35 AM EDT Pts calling in requesting refill request be sent to Dr. Stephens. states she put a requestin over the weekend, but realized it went to the provider in [place]. states patient is down to 1 tablet. also states patient has been waiting to see Dr. Stephens; pt is at dialysis today and was hoping to meet with him. Fyi. Thank you, Rachel Tobar Industrial Machinery Mechanic I [facility] ([facility]) 06/11/2024,8:36 AM * Telephone Encounter - Rachel Tobar keg header - 06/11/2024 8:29 AM EDT Patient is [...] the medication was ordered: 05/28/2024 Pharmacy: [id number] Is this [...] Description 06/18/2024 10:20 AM EDT Laboratory Laboratory [facility] [place] [address] [facility] [place] [id number] [facility] [address] [facility] [place] [address] 06/28/2024 8:30 AM EDT Imaging Cardiac Studies, [facility] [address] [place] [address] 07/25/2024 10:40 AM EST Office Visit Nephrology, [facility] [address] [place] [address] Juliano Stephens MD [address] [place] [address] 08/09/2024 10:30 AM EST Office Visit Cardiology, [facility] [address] [place] [address] Palak Meier CRNP [address] [place] [address] Health Maintenance Due Date Last Done Comments [...] this encounter Medical Devices Implanted Type Area Corporate Strategy Intern Device Identifier Shelf Expiration Date Model / Serial / Lot Coil Emboli Tornado 3x2 - [id number] Implanted:Qty: 1 on 05/22/2024 at [facility] [id number] 11/14/2028 [id number] / / [id number] Coil Fibered 2 10mm [id number] - [id number] Implanted:Qty: 1 on 05/22/2024 at [facility] [employer] : [employer]URO INTR [id number] 08/08/2026 [id number] / / [id number] Coil Emboli Tornado 3x2 - [id number] Implanted:Qty: 1 on 05/22/2024 at [facility] [id number] 09/08/2028 [id number] / / [id number] Coil Emboli Tornado 3x2 - [id number] Implanted:Qty: 1 on 05/22/2024 at [facility] [id number] 08/22/2028 [id number] / / [id number] Cath Diag Cobra 2 [id number] - [id number] Implanted:Qty: 1 on 05/22/2024 at [facility] [employer] [id number] 07/24/2026 H78 [id number] / / [id number] documented as of this encounter Advance Directives [...] Advance Directives occurred with: Patient Care Teams Construction Electrician Relationship Specialty Start Date End Date Sonya Dacosta MD [address] [place] [address] PCP - General Family Medicine 04/27/24 documented as of this encounter
--- OUTSIDE RECORDS SUMMARY | 2024-07-09 07:09 | External Medical Summary | Summary of Care ---
Author Name Unknown Organization [facility] Address [address] [place] [address] Phone [phone] Care Team Providers Care Tung Nut Grower Name Role Phone Sonya Dacosta MD Primary Care Provider [phone] Reason for Visit * Reason Onset Date Comments Medication Refill 05/28/2024 Encounter Details Date Type Department Care Team (Late st Contact Info) Description 05/28/2024 Refill [facility] [address] [place] [address] Eloise Schofield MD [address] [place] [address] Allergies Active Allergy Reactions Criticality Noted Date Comments Amoxicillin Hives 02/07/2014 Nsaids Edema face/lips/tongue High 02/07/2014 Penicillins Hives 02/07/2014 documented as of this encounter (statuses as of 05/28/2024) Medications Medication Sig Dispensed Refills Start Date [...] as of this encounter (statuses as of 05/28/2024) Active Problems Problem Noted Date Diagnosed Date [...] as of this encounter (statuses as of 05/28/2024) Resolved Problems Problem Noted Date Diagnosed Date Resolved Date Abdominal pain 05/22/2024 05/27/2024 documented as of this encounter (statuses as of 05/28/2024) Social History Tobacco Use Types Packs/Day Years [...] encounter Miscellaneous Notes * Telephone Encounter - Eloise Schofield MD - 05/28/2024 7:05 PM EDT Patient called requesting refill for sevelamer, since he was not able to get refill from pharmacy. Gave 10 day supply Eloise Schofield MD documented in this encounter Plan of Treatment Upcoming Encounters Date Type Department Care Team (Late st Contact Info) Description 06/08/2024 7:40 AM EDT Office Visit Family Practice [facility] [address] [facility] [place] [address] Sonya Dacosta MD [address] [facility] [place] [address] 06/28/2024 8:30 AM EDT Imaging Cardiac Studies, [facility] [address] [place] [address] 08/09/2024 10:30 AM EST Office Visit Cardiology, [facility] [address] [address] Palak Meier CRNP [address] [place] [address] Health Maintenance Due Date Last Done Comments [...] this encounter Medical Devices Implanted Type Area Civil Laboratory Technician Device Identifier Shelf Expiration Date Model / Serial / Lot Coil Emboli Tornado 3x2 - [id number] Implanted:Qty: 1 on 05/22/2024 at [facility] [id number] 11/14/2028 [id number] / / [id number] Coil Fibered 2 10mm [id number] - [id number] Implanted:Qty: 1 on 05/22/2024 at [facility] [employer] INTR [id number] 08/08/2026 [id number] / / [id number] Coil Emboli Tornado 3x2 - [id number] Implanted:Qty: 1 on 05/22/2024 at [facility] [employer] [id number] 09/08/2028 [id number] / / [id number] Coil Emboli Tornado 3x2 - [id number] Implanted:Qty: 1 on 05/22/2024 at [facility] [employer] [id number] 08/22/2028 [id number] / / [id number] Cath Diag Inder 2 [id number] - [id number] Implanted:Qty: 1 on 05/22/2024 at [facility] [employer] [id number] 07/24/2026 H78 [id number] / / [id number] documented as of this encounter Advance Directives [...] Advance Directives occurred with: Patient Care Teams Tung Nut Grower Relationship Specialty Start Date End Date Sonya Dacosta MD [address] [place] [address] PCP - General Family Medicine 04/27/24 documented as of this encounter
--- OUTSIDE RECORDS SUMMARY | 2024-07-09 07:09 | External Medical Summary | Summary of Care ---
Author Name Unknown Organization [facility] Address [address] [place] [address] Phone [phone] Care Team Providers Care Field Installation Technician Name Role Phone Sonya Dacosta MD Primary Care Provider [phone] Reason for Visit * Reason Onset Date Comments Medication Refill 06/11/2024 Encounter Details Date Type Department Care Team (Late st Contact Info) Description 06/11/2024 Refill [facility]rology[facility]eli [address] [facility] [place] [address] Juliano Stephens MD [address] [facility] [place] [address] Allergies Active Allergy Reactions Criticality Noted Date Comments Amoxicillin Hives 02/07/2014 Nsaids Edema face/lips/tongue High 02/07/2014 Penicillins Hives 02/07/2014 documented as of this encounter (statuses as of 06/12/2024) Medications Medication Sig Dispensed Refills Start Date [...] as of this encounter (statuses as of 06/12/2024) Active Problems Problem Noted Date Diagnosed Date [...] as of this encounter (statuses as of 06/12/2024) Resolved Problems Problem Noted Date Diagnosed Date Resolved Date Abdominal pain 05/22/2024 05/27/2024 documented as of this encounter (statuses as of 06/12/2024) Social History Tobacco Use Types Packs/Day Years [...] RF request was sent to [facility] in [place] they will manage Rx refills Nurse will follow up in AM * Telephone Encounter - Kelsea Montoya OSA - 06/11/2024 3:54 PM EDT Pt called in . They have questions regarding his medication refill and missing a day or two unil its filled . Please call [phone] * Telephone Encounter - Anila Knight LPN [...] is a dialysis patient Will fax to [facility] * Telephone Encounter - Rachel Tobar comedian - 06/11/2024 8:35 AM EDT Pts calling in requesting refill request be sent to Dr. Stephens. states she put a requestin over the weekend, but realized it went to the provider in [place]. states patient is down to 1 tablet. also states patient has been waiting to see Dr. Stephens; pt is at dialysis today and was hoping to meet with him. Ru. Thank you, Rachel Tobar Direct Care Supervisor I [facility] ([facility]) 06/11/2024,8:36 AM * Telephone Encounter - Rachel Tobar comedian - 06/11/2024 8:29 AM EDT Patient is [...] date the medication was ordered: 05/28/2024 Pharmacy: [id number] [address] Is [...] 10:20 AM EDT Laboratory Laboratory [facility] [place] [address] [id number] Nelson Davison [address] [place] [address] [address] 06/28/2024 8:30 AM EDT Imaging Cardiac Studies, [facility] [place] [address] [facility] [place] [address] 07/25/2024 10:40 AM EST Office Visit Nephrology, [facility] [address] [place] [address] Juliano Stephens MD [address] [place] [address] [address] 08/09/2024 10:30 AM EST Office Visit [facility]iology, [facility] [address] [facility] [place] [address] Palak Meier CRNP [address] [place] [address] Health Maintenance Due Date Last Done Comments [...] this encounter Medical Devices Implanted Type Area Bus Greaser Device Identifier Shelf Expiration Date Model / Serial / Lot Coil Emboli Tornado 3x2 - [id number] Implanted:Qty: 1 on 05/22/2024 at [facility] [employer] [id number] 11/14/2028 [id number] / / [id number] Coil Fibered 2 10mm [id number] - [id number] Implanted:Qty: 1 on 05/22/2024 at [facility] [employer]UR[employer] INTR [id number] 08/08/2026 [id number] / / [id number] Coil Emboli Tornado 3x2 - [id number] Implanted:Qty: 1 on 05/22/2024 at [facility] [employer] [id number] 09/08/2028 [id number] / / [id number] Coil Emboli Tornado 3x2 - [id number] Implanted:Qty: 1 on 05/22/2024 at [facility] [employer] [id number] 08/22/2028 [id number] / / [id number] Cath Diag Cobra 2 [id number] - [id number] Implanted:Qty: 1 on 05/22/2024 at [facility] [employer] [id number] 07/24/2026 H78 [id number] / / [id number] documented as of this encounter Advance Directives [...] Advance Directives occurred with: Patient Care Teams Field Installation Technician Relationship Specialty Start Date End Date Sonya Dacosta MD [address] [place] [address] PCP - General Family Medicine 04/27/24 documented as of this encounter
--- OUTSIDE RECORDS SUMMARY | 2024-07-09 07:09 | External Medical Summary ---
Author Name Unknown Address Unknown Organization K09[facility] [place] [address] Laboratory Report Ordering Provider Test Date Status DEBORAH SANCHEZ 06/18/2024 10:14:01 Final Observation Date Value Abnormality Reference (Units ) Status BUN 06/18/2024 10:14:01 21 Above high normal 6-20 (mg/dL) Final Creatinine 06/18/2024 10:14:01 4.2 Above high normal 0.6-1.2 (mg/dL) Final Glomerular filtration rate/1.73 sq M.predicted [Volume Rate/Area] in Serum, Plasma or Blood by Creatinine-based formula (CKD-EPI) 06/18/2024 10:14:01 16 Below low normal >=60 (mL/min) Final eGFR is calculated based on the CKD-EPI 2020 equation. Sodium 06/18/2024 10:14:01 136 135-146 (m mol/L) Final Potassium 06/18/2024 10:14:01 3.6 3.5-5.1 (m mol/L) Final Cl 06/18/2024 10:14:01 96 Below low normal 98- 107 (mmol/L) Final CO2 06/18/2024 10:14:01 28 22-32 (mmo l/L) Final Anion gap 06/18/2024 10:14:01 12 7-15 (mmol /L) Final Glucose 06/18/2024 10:14:01 131 Above high normal 70 -120 (mg/dL) Final Calcium 06/18/2024 10:14:01 8.7 8.4-10.2 ( mg/dL) Final Albumin 06/18/2024 10:14:01 4.1 3.8-5.0 (g /dL) Final Phosphate 06/18/2024 10:14:01 2.8 2.5-4.8 (m g/dL) Final Performing Location [facility] [place] [address]
--- OUTSIDE RECORDS SUMMARY | 2024-07-09 07:09 | External Medical Summary | Summary of Care ---
Author Name Unknown Organization [facility] Address [address] [place] [address] Phone [phone] Care Team Providers Care Grinding Mill Operator Name Role Phone Sonya Dacosta MD Primary Care Provider [phone] Reason for Visit * Reason Onset Date Comments Hospital Follow-[facility] 05/29/2024 [facility] [place] [facility] Encounter Details Date Type Department Care Team (Late st Contact Info) Description 05/29/2024 Telephone Family Practice [facility] [place] [address] [place] [address] [facility]) Allergies Active Allergy Reactions Criticality Noted Date Comments Amoxicillin Hives 02/07/2014 Nsaids Edema face/lips/tongue High 02/07/2014 Penicillins Hives 02/07/2014 documented as of this encounter (statuses as of 05/29/2024) Medications Medication Sig Dispensed Refills Start Date [...] as of this encounter (statuses as of 05/29/2024) Active Problems Problem Noted Date Diagnosed Date [...] as of this encounter (statuses as of 05/29/2024) Resolved Problems Problem Noted Date Diagnosed Date Resolved Date Abdominal pain 05/22/2024 05/27/2024 documented as of this encounter (statuses as of 05/29/2024) Social History Tobacco Use Types Packs/Day Years [...] encounter Miscellaneous Notes * Telephone Encounter - Lori Bright RN - 05/29/2024 9:41 AM EDT Transitions of Care Note Reason for Referral:Recent Admission Phone visit for follow up: PACO Ad[place] to: [facility], Date: 05/22 Discharged to: home, Date: 05/28 Diagnosis driving hospitalization: ESRD, VENKAT, Renal hematoma Source/Contact: Patient SUBJECTIVE Consent: Verbal consent for review of hospital discharge: Yes REVIEW OF SYSTEMS Patient/Other Reports: Current patient/caregiver problems or concerns: fatigue and LE edema CV: Edema- lower extremity Pulmonary: Denies problems Chills/Sweats/Fever:Denies chills/sweats Denies fever Appetite:Denies problems such as nausea, vomiting, burning, decreased appetite And on fluid restriction Current diet: renal diet Bowel: denies problems Bladder: decreased urinary output Wound (If applicable): bandage to chest/dialysis cath site. Without concerns Pain:Denies Sleep:fatigued FUNCTIONAL STATUS: ADL'S: Needs Assistance With:N/A as pt is independent IADL'S: Needs Assistance With:Routine Housework, transportation Cognitive and Mental Health: alert and oriented x 3 and able to communicate, understand instructions, process information. MEDICATION RECONCILIATION Medications: Discharge med list reviewed with patient or caregiver New medication(s) filled since hospitalization- amlodipine renvela Changed medication(s) since hospitalization carvedilol OBJECTIVE ASSESSMENT Medication Risk Assessment: No risks identified Did patient fail outpatient treatment? No Discharge instructions available for review? Yes PLAN Symptom Monitoring Interventions:Member/caregiver education - signs and symptoms to contact PrimaryCare (DO NOT DELETE-Three monique symptoms patient is to report to PCP) 1. Increased edema 2. SOB/cough 3. Increased fatigue Gallery AssistantService Employee of Care interventions/Action Plan: 5 - 7 day follow-up with PCP in place - Date: 06/08/24 Educated on role of PACO completed with patient/caregiver. Educated patient/caregiver on patient right to have input on PACO plan of care. Verification of Home Health/DME if indicated: NO Patient is set up for dialysis with [facility], first session starting tomorrow Identified Care Gaps: Yes Care Gaps closed this call: Medication optimization and Transition of Care follow-up communication Re-evaluation of Plan of Care and progress towards goals achievement: Patient education this visit: Sent, to [facility] as discussed with patient Verbal, as above Plan to instructed to call Primary Care Provider with change in symptoms or as needed before next follow-up, discharge needs met, verbalizes understanding and agrees with plan. Patient unsure if he will be keeping hosp d/c appt as he will be starting 3x a week dialysis. Will keep at this time- he will be following with Dr. Stephens through [facility] for dialysis Lori Bright RN documented in this encounter Plan of Treatment Upcoming Encounters Date Type Department Care Team (Late st Contact Info) Description 06/07/2024 1:40 PM EDT Office Visit [facility] [address] [place] [address] Sonya Dacosta MD 200 [facility] [place] [address] 06/08/2024 7:40 AM EDT Office Visit [facility] [place] [address] [place] [address] [address] Sonya Dacosta MD [facility] [place] [address] [address] 06/28/2024 8:30 AM EDT Imaging Cardiac Studies, [facility] [place] [address] [facility] [place] [address] 08/09/2024 10:30 AM EST Office Visit Cardiology, [facility] [address] [facility] [place] [place] [address] Palak Meier CRNP [address] [place] [address] Health Maintenance Due Date Last Done Comments [...] this encounter Medical Devices Implanted Type Area Race Car Mechanic Device Identifier Shelf Expiration Date Model / Serial / Lot Coil Emboli Tornado 3x2 - [id number] Implanted:Qty: 1 on 05/22/2024 at [facility] [employer] [id number] 11/14/2028 [id number] / / [id number] Coil Fibered 2 10mm [id number] - [id number] Implanted:Qty: 1 on 05/22/2024 at [facility] [employer] [id number] 08/08/2026 [id number] / / [id number] Coil Emboli Tornado 3x2 - [id number] Implanted:Qty: 1 on 05/22/2024 at [facility] [employer] [id number] 09/08/2028 [id number] / / [id number] Coil Emboli Tornado 3x2 - [id number] Implanted:Qty: 1 on 05/22/2024 at [facility] [employer] [id number] 08/22/2028 [id number] / / [id number] Cath Diag Cobra 2 [id number] - [id number] Implanted:Qty: 1 on 05/22/2024 at [facility] [employer] [id number] 07/24/2026 H78 [id number] / / [id number] documented as of this encounter Advance Directives [...] Advance Directives occurred with: Patient Care Teams Grinding Mill Operator Relationship Specialty Start Date End Date Sonya Dacosta MD [address] [place] [address] PCP - General Family Medicine 04/27/24 documented as of this encounter
--- OUTSIDE RECORDS SUMMARY | 2024-07-09 07:09 | External Medical Summary | Summary of Care ---
Author Name Unknown Organization [facility] Address [address] [place] [address] Phone [phone] Care Team Providers Care Director Of Clinical Applications Name Role Phone Sonya Dacosta MD Primary Care Provider [phone] Reason for Visit * Reason Onset Date Comments Medication Refill 06/11/2024 Encounter Details Date Type Department Care Team (Late st Contact Info) Description 06/11/2024 Refill NephrologyEmeli [facility] [place] [address] Juliano Stephens MD [address] [facility] [place] [address] Allergies Active Allergy Reactions Criticality Noted Date [...] encounter Miscellaneous Notes * Telephone Encounter - Kelsea Montoya OSA - 06/11/2024 3:54 PM EDT Pt called in . They have questions regarding his medication refill and missing a day or two unil its filled . Please call [phone] * Telephone Encounter - Anila Knight LPN - 06/11/2024 12:33 PM EDTRefused Prescriptions: Disp Refills Sevelamer Carbonate 800 MG Oral Tablet (Re*30 Tab*0 Sig: Take 1 Tablet by mouth in the morning and 1 Tablet at noon and 1 Tablet in the evening. Take with meals. Refused By: ANILA KNIGTH Reason for Refusal: Other (comment below) Reason for Refusal Comment: Managed by dialysis * Telephone Encounter - Anila Knight LPN - 06/11/2024 12:30 PM EDT This is a dialysis patient Will fax to [facility] * Telephone Encounter - Rachel Tobar rake operator - 06/11/2024 8:35 AM EDT Pts calling in requesting refill request be sent to Dr. Stephens. states she put a requestin over the weekend, but realized [place] went [place]. states patient is down to 1 tablet. also states patient has been waiting to see Dr. Stephens; pt is at dialysis today and was hoping to meet with him. Melyi. Thank you, Rachel Tobar [employer] [facility] 06/11/2024,8:36 AM * Telephone Encounter - Rachel Tobar rake operator - 06/11/2024 8:29 AM EDT Patient [...] Description 06/18/2024 10:20 AM EDT Laboratory Laboratory [facility] [place] [address] [place] [id number] [facility] [address] [facility] [address] [place] [address] 06/28/2024 8:30 AM EDT Imaging Cardiac Studies, [facility] [address] [facility] [place] [address] 07/25/2024 10:40 AM EST Office Visit Nephrology, [facility] [address] [facility] [address] [place] [address] Juliano Stephens MD [address] [place] [address] 08/09/2024 10:30 AM EST Office Visit Cardiology, [facility] [address] [facility] [place] [address] Palak Meier CR[facility] [address] [facility] [address] Health Maintenance Due Date Last Done Comments [...] this encounter Medical Devices Implanted Type Area Neurobiologist Device Identifier Shelf Expiration Date Model / Serial / Lot Coil Emboli Tornado 3x2 - [id number] Implanted:Qty: 1 on 05/22/2024 at [facility] [id number] 11/14/2028 [id number] / / [id number] Coil Fibered 2 10mm [id number] - [id number] Implanted:Qty: 1 on 05/22/2024 at [facility] [employer] [employer] : [employer] INTR [id number] 08/08/2026 [id number] / / [id number] Coil Emboli Tornado 3x2 - [id number] Implanted:Qty: 1 on 05/22/2024 at [facility] [id number] 09/08/2028 [id number] / / [id number] Coil Emboli Tornado 3x2 - [id number] Implanted:Qty: 1 on 05/22/2024 at [facility] [id number] 08/22/2028 [id number] / / [id number] Cath Diag Cobra 2 [id number] - [id number] Implanted:Qty: 1 on 05/22/2024 at [facility] [employer] [id number] 07/24/2026 [id number] / / [id number] documented as of this encounter Advance Directives [...] Advance Directives occurred with: Patient Care Teams Director Of Clinical Applications Relationship Specialty Start Date End Date Sonya Dacosta MD [address] [facility] [place] [address] PCP - General Family Medicine 04/27/24 documented as of this encounter
--- OUTSIDE RECORDS SUMMARY | 2024-07-09 07:09 | External Medical Summary | Summary of Care ---
Author Name Unknown Organization [facility] Address [address] [place] [address] Phone [phone] Care Team Providers Care Flame Degreaser Name Role Phone Sonya Dacosta MD Primary Care Provider [phone] Reason for Visit * Auth/Cert Specialty Diagnoses / Procedures Referred By Wesley t Referred To Contact Diagnoses Renal failure Hematoma of left kidney Renal Failure Subcapsular hematoma of left kidney Deric La MD [address] [place] [address] [place] [facility] [place] [address] [place] [address] Referral ID Status Reason Start Date Expiration Date Visits Re quested Visits Authorized [id number] Encounter Details Date Type Department Care Team (Latest Contact Info) Description 05/22/2024 5:37 AM EDT - 05/28/2024 3:07 PM EDT [facility], [facility] 5TH FLOOR [address] [place] [address] Deric La MD [address] [place] [address] Yash Rooney MD [address] [place] [address] Gali Hernandez MD [address] [place] [address] Vikas Agosto MD [address] [facility] [place] [address] Discharge Disposition: Home - Self Care Allergies Active Allergy Reactions Criticality Noted Date [...] HFA 108 (90 Base) MCG/ACT Inhalation Aerosol SolutionIndicati ons:Bronchitis, complicated Inhale 2 Puffs by mouth 4 times a day as needed for Wheezing. 18 g 1 04/23/2024 Active amLODIPine Besylate 10 MG Oral Tablet (Norvasc)Indicat ions:Hypertensio n goal BP (blood pressure) < 140/90 Take 0.5 Tablets by mouth in the morning and 0.5 Tablets before bedtime. 90 Tablet 5 05/28/2024 Active Carvedilol 25 MG Oral Tablet (Coreg) Take 1 Tablet by mouth 2 times a day with morning and evening meals. 60 Tablet 05/28/2024 Active Carvedilol 12.5 MG Oral Tablet (Coreg) Take 1.5 Tablets by mouth in the morning and 1.5 Tablets before bedtime. 270 Tablet 3 04/23/2024 4 Discontinued Furosemide 40 MG Oral Tablet (Lasix)Indicatio ns:Generalized edema,Congestive heart failure, unspecified HF chronicity, unspecified heart failure type (HCC) Take 0.5 Tablets by mouth in the morning. 04/27/2024 4 Discontinued amLODIPine Besylate 10 MG Oral Tablet (Norvasc)Indicat ions:Hypertensio n goal BP (blood pressure) < 140/90 Take 0.5 Tablets by mouth in the morning and 0.5 Tablets before bedtime. 90 Tablet 5 05/10/2024 4 Discontinued Carvedilol 25 MG Oral Tablet (Coreg) Take 1 Tablet by mouth 2 times a day with morning and evening meals. 60 Tablet 3 05/27/2024 4 Discontinued(Medi cation List Clean Up) Sevelamer Carbonate 800 MG Oral Tablet (Renvela) Take 1 Tablet by mouth in the morning and 1 Tablet at noon and 1 Tablet in the evening. Take with meals. 90 Tablet 3 05/27/2024 4 Discontinued(Medi cation List Clean Up) documented as of this encounter (statuses as [...] Sign Reading Time Taken Comments Blood Pressure 130/85 05/28/2024 12:00 PM EDT Pulse 72 05/28/2024 12:00 PM EDT Temperature 37.6 C (99.7 F) 05/28/2024 1 2:00 PM EDT Respiratory Rate 18 05/28/2024 12:0 0 PM EDT Oxygen Saturation 100% 05/28/2024 8:00 AM EDT Inhaled Oxygen Concentration - - Weight 107.3 kg (236 lb 8.9 oz) 05/23/2024 6:00 AM EDT Height 187.9 cm (6' 1.98") 05/22/2024 5:00 AM ED T Body Mass Index 30.39 05/22/2024 5:00 AM EDT documented in this encounter Functional Status Functional Status Response [...] No 05/22/2024 documented as of this encounter Discharge Instructions * Discharge Instr - AVS* Eloise Schofield MD - 05/27/2024 8:25 AM EDT Discharge Date: 05/28/2024 The information below provides you with the instructions and the list of medications you need to betaking following discharge from the hospital. If you have any questions, please ask before leaving. If you have questions after leaving, you can reach us at the numbers below. YOUR HOSPITAL PROVIDERS: Discharging Provider: Gali Hernandez MD Provider Department: Hospital Medicine To reach this Provider Tuesday through Tuesday (8:00 AM to 4:30 PM) for any questions or test results: Call [phone] For after-hours concerns: Call [phone] and have your provider paged, or the provider first responder for the Department of Hospital Medicine paged. Please note, the discharging provider will not be able to provide you with any medications refills.Please discuss these with your primary care provider. Worsening Symptoms: If you have new symptoms, or your symptoms get worse, please contact your Discharge Provider or Primary Care Provider (PCP). If these providers are not available, you can go to your local [facility] or [facility] Clinic during their business hours. In an EMERGENCY situation: Call 911 or go to the nearest emergency room. A BRIEF SUMMARY OF YOUR HOSPITAL STAY: You came to the hospital with: Concern of left flank and abdominal pain after undergoing kidney biopsy. You were found to have bleeding around the kidney that was stopped by placing a catheter into the bleeding blood vessel and inserting a material that stops bleeding. Your blood pressure was high on arrival to the hospital, but has been controlled by restarting your home amlodipine 5mg two timesa day, once in the morning once in the evening and by increasing your dose of coreg to 25mg two times a day., once in the morning and once in the evening. Additionally you were diagnosed with End stage renal failure and are now requiring dialysis. End-stage kidney disease is the point in kidney disease when the kidneys mostly or completely stop working. It is also called "kidney failure." When the kidneys are working normally, they filter blood and remove waste and excess salt and water. When brooks has chronic kidney disease ("CKD") the kidney slowly loses the abiity to filter blood. End- stage kidney disease is when the kidney can no longer filter blood properly. Some people with CKD reach end-stage kidney disease after many years. For others, the kidneys stop working sooner. Dialysis - This is a treatment that takes over the job of the kidneys. Hemodialysis - This is a procedure in which a dialysis machine takes over the job of the kidneys. The machine pumps blood out ofyour body, filters it, and returns it to your body. you will need to have it at least 3 times a week. You might have the option of having hemodialysis at a dialysis center (in a hospital or clinic) or at home. You, your doctor, and your family will need to work together to find the treatment that's right foryou. It will depend partly on your condition, overall health, and home situation. Your main diagnosis at discharge was: End stage renal disease on dialysis. Operations & Procedures performed: Left renal arcuate artery embolization and coiling for pseudoaneurysm Complications: none significant Inpatient test results that are pending at discharge: none Advance Directive Documented: Advance Directive Does the Patient have an Advance Directive? No YOUR FOLLOW UP APPOINTMENTS: Primary Care Provider Information: PCP: Sonya Dacosta MD [address] [place] [address] / [facility] [address] (office) [phone] (fax) An appointment was requested with your PCP (Sonya Dacosta MD) within 3-5 days . (Please take this form to this visit with your primary care physician.) An appointment with your insights analyst (kidney doctor) within 3-5 days An appointment at your hemodialysis center, starting Tuesday05/28/2024. Dialysis should occur 1-2 days after discharge and continue per nephrology likely 3x a week. You need the following studies in the future: Will require lab work along with dialysis sessions. INSTRUCTIONS: Diet: Normal diet, Renal diet Activity: No restrictions and As tolerated Tunneled dialysis catheter located in R chest, placed prior to admission Additional Instructions: - Call your primary care physician or seek medical attention if you have chest pain, shortness of breath, lightheadedness or dizziness, or abdominal pain. - Do not take ivek-crn-odhzmey NSAIDs (nonsteroid anti-inflammatory medications); ie. Advil, Motrin, Ibuprofen, etc. MEDICATION UPDATES AT DISCHARGE START taking these medications INSTRUCTIONS amLODIPine 10 MG Tablet Commonly known as: Norvasc Take 0.5 Tablets by mouth in the morning and 0.5 Tablets before bedtime. CONTINUE taking these medications INSTRUCTIONS levothyroxine 200 MCG Tablet Commonly known as: Levoxyl Take 1 Tablet by mouth in the morning. Takes at bedtime . Multivitamin Adult (Minerals) Tabs 1 Tablet in the morning. Ventolin HFA 108 (90 Base) MCG/ACT Aers Inhale 2 Puffs by mouth 4 times a day as needed for Wheezing. Vitamin D3 50 MCG (2000 UT) Capsule Take 1 Capsule by mouth in the morning. STOP taking these medications Carvedilol 12.5 MG Tablet Commonly known as: Coreg Lasix 40 MG Tablet Generic drug: Furosemide documented in this encounter Progress Notes * Delonte Mayorga MD - 05/28/2024 12:43 PM EDT DIALYSIS PROGRESS NOTE - Nephrology [facility]-[address] [address] Name: Fly De Luna Location: [facility] A546/[id number] Date: 05/28/2024 Time: 12:43 PM SUBJECTIVE: Patient seen during the hemodialysis procedure. He states his abdomen still doesn't feel normal UOP 425 yesterday and 375 today Ready to go home Discharge plans still unclear OBJECTIVE: Most Recent Vital Signs: BP: 127 mmHg/83 mmHg (05/28/24 1140) Pulse: 72 (05/28/24 1140) Resp: 20 (05/28/24 1140) Temp: 37.61 C (05/28/24 1140) Temp Summary: Temp Min: 36.6 C (97.9 F) Max: 37.7 C (99.9 F) SpO2: 100 % (05/28/24 0800) O2 flow rate: 2 L/MIN (05/24/24 0958) Supplemental O2 Delivery: Room Air, None (05/28/24 1140) Wt Readings from Last 4 Encounters: 05/23/24 107.3 kg (236 lb 8.9 oz) 05/21/24 106.6 kg (235 lb) 05/09/24 105.2 kg (232 lb) 05/09/24 104.5 kg (230 lb 6.4 oz) I/O Brief: Intake/Output Summary (Last 24 hours) at 05/28/2024 1243 Last data filed at 05/28/2024 1145 Gross per 24 hour Intake 1130 ml Output 3900 ml Net -2770 ml GEN: NAD CV: RRR no M/R/G PULM: CTAB ABD: soft, NT, ND, +BS EXT: 1+ edema ACCESS: TDC LABS Lab results within last 7 days (see chart for full results) Units 05/28/24 0613 05/27/24 0556 05/26/24 0547 Sodium mmol/L 131* 132* 130* Potassium mmol/L 4.4 4.3 4.5 Chloride mmol/L 95* 95* 95* CO2 mmol/L 22 24 21* BUN mg/dL 64* 53* 68* Creatinine mg/dL 8.0* 7.0* 8.3* Lab results within last 7 days (see chart for full results) Units 05/28/24 0613 05/27/24 0556 05/26/24 1716 HGB g/dL 7.8* 8.3* 8.2* Lab results within last 7 days (see chart for full results) Units 05/28/24 0613 05/27/24 0556 05/26/24 0547 Calcium mg/dL 8.8 9.0 8.8 Phosphorus mg/dL 5.9* 5.3* 6.2* A/P: 53yo with VENKAT-D (05/24) on CKD4 s/p renal biopsy complicated by subcapsular/RP bleed s/p IR embolization, hypertension 10/21 Page kidney -renal 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 bed availability for dialysis, although per notes today that is not confirmed yet -UF 2-3 liters -okay to discharge once outpatient dialysis confirmed * Cuba Gómez MD - 05/28/2024 8:06 AM EDT CRITICAL CARE MEDICINE - PROGRESS NOTE [facility]-[address] [address] Name: Fly De Luna Location: [facility] A546/[id number] Date: 05/28/2024 Time: 8:06 AM Date of Admission: 05/22/2024 Hospital Day: 6 PATIENT DESCRIPTION: 53 yomale with PMH of HTN, hypothyroidism, HLD, CKD 4, recent L renal biopsy 05/19 who presented to [facility] for severe left flank pain, transferred to [facility], found to have a left perirenal hematoma with active hemorrhage into retroperitoneum from likely pseudoaneurysm. HPI/EVENTS OF NOTE: 05/22- ad'd to [facility] under medicine service. CTA = L perirenal hematoma with active hemorrhage into retroperitoneum from likely pseudoaneurysm.Pt taken for emergent renal arteriography with coil and embolization of inferior pole arcuate branch. ad'd to ICU post procedure. 05/24 first HD session. required 1 u PRBC and spiked fever. Started on broad spectrum abx 05/26- d/c'd abx given No growth on cultures. No further fevers Overnight, no acute events. No dialysis yesterday. Dialysis planned for this am. Afebrile SBP 138-157/ 93-101 * better controlled yesterday after dialysis HR 70-80 RR 15-18 90-100s on room air Net I/O +945 mL/24 , 425mL UOP/ 24hr; 2 BM 05/27 CONSTITUTIONAL DATA: Blood Pressure: 149/94 mmHg Last 12H: Most Recent Systolic BP Av.7 mmHg Min: 135 mmHg Max: 149 mmHg Pulse: 81 Last 12H: Pulse Av.3 Min: 73 Max: 81 Temperature: 37.2 C (98.9 F) Last 12H: Most Recent Temperature Av C Min: 36.67 C Max: 37.17 C Respiratory Rate: 22 O2 Saturation: 98 % Intake/Output Summary (Last 24 hours) at 05/28/2024 0806 Last data filed at 05/28/2024 0400 Gross per 24 hour Intake 1370 ml Output 500 ml Net 870 ml Net Since Admission: Physical Examination General appearance: alert and oriented overall In no acute distress. HEENT: opens eyes spontaneously. EOMI. Pupils equal and reactive b/l. AT/NC CV: regular rate and rhythm Pulm: CTAB. Overall no significant inc work of breathing, GI: Abdomen soft nontender, non distended. MSK:moves all 4 extremities., ambulates without difficulty Neuro: alert and oriented. Skin: no obvious rashes UOP = Urine Output Urine Output Source: Urinal (05/28/24 0400) Voiding: Moderate (05/25/24 1600) Urine Output (ml) (Excludes Catheters): 175 ml (05/28/24 0400) Bladder Scan: 300 (05/26/24 0000) Last BM = Last Bowel Movement: 05/27/24 (05/27/24 2100) Laboratory Values: Lab results within last 7 days (see chart for full results) Units 05/25/24 0343 05/22/24 0157 Lactate mmol/L 0.8 1.1 Lab results within last 7 days (see chart for full results) Units 05/28/24 0613 05/27/24 0556 05/26/24 1716 05/22/24 0758 05/22/24 0003 HGB g/dL 7.8* 8.3* 8.2* < > 10.8* HCT % 24.9* 26.6* 26.1* < > 33.8* WBC K/uL 11.28* 11.08* 11.95* < > 12.04* PLT K/uL 286 254 244 < > 174 Neutrophils % % -- -- -- -- 87.3* Monocytes % % -- -- -- -- 6.2 Eosinophils % % -- -- -- -- 1.5 < > = values in this interval not displayed. Lab results within last 7 days (see chart for full results) Units 05/28/24 0613 05/27/24 0556 05/26/24 0547 Sodium mmol/L 131* 132* 130* Potassium mmol/L 4.4 4.3 4.5 Chloride mmol/L 95* 95* 95* CO2 mmol/L 22 24 21* BUN mg/dL 64* 53* 68* Creatinine mg/dL 8.0* 7.0* 8.3* Lab results within last 7 days (see chart for full results) Units 05/22/24 0003 Protein g/dL 6.5 Bilirubin, Total mg/dL 1.5* Alkaline Phosphatase U/L 46 AST U/L 63* ALT U/L 32 Radiographic & Other Studies: No imaging results in the last 72 hours Current Facility-Administered Medications Medication Dose Route Frequency Provider Polyethylene Glycol 3350 (Miralax) oral powder 17 g 1 Packet Oral BID (0900,2100) Ksenia Lea DO senna-docusate (Senokot-S) 1 Tablet 1 Tablet Oral BID(AM/PM) Cuba Gómez MD Acetaminophen (Tylenol) tab 650 mg 650 mg Oral Q6H PRN Cuba Gómez MD amLODIPine (Norvasc) tab 5 mg 5 mg Oral BID(AM/PM) Cuba Gómez MD Carvedilol (Coreg) tab 25 mg 25 mg Oral BID (AM/PM meals) Cuba Gómez MD hEParin inj 5,000 Units 5,000 Units Subcutaneous Q8H Ksenia Lea DO oxyCODONE (Roxicodone) oral syrup 2.5 mg 2.5 mg Oral Q4H PRN Cuba Gómez MD Simethicone (Mylicon) chew tab 80 mg 80 mg Oral Q6H PRN Trevor Rojas DO sodium citrate 4% (Anticoagulant Sodium Citrate) inj 3 mL 3 mL Dialysis catheter On dialysis Kamilla Ortega CRNP chlorHEXIDINE (Periogard) 0.12 % oral rinse 15 mL 15 mL Oral mucosal membrane BID (799,1999) Cuba Gómez MD cholecalciferol (VIT D3) (Vitamin D3) tab 1,000 Units 1,000 Units Oral Daily(AM) Vikas Agosto MD levothyroxine (Levoxyl) tab 200 mcg 200 mcg Oral Daily 0630 Vikas Agosto MD Oral Hygiene: Mouth Swab with dentifrice Oral Q4H Limited (00;04;12;16) Cuba Gómez MD Sevelamer Carbonate (Renvela) tab 800 mg 800 mg Oral With meals Vikas Agosto MD sodium chloride 0.9 % flush peripheral jordan 3 mL 3 mL IV Push Q8H Cuba Gómez MD sodium chloride 0.9 % flush/inj 3 mL 3 mL IV Push PRN Vikas Agosto MD CRITICAL CARE SYSTEM REVIEW & ASSESSMENT/PLAN: Active Problems: Renal hematoma, left (POA: Unknown) ESRD (end stage renal disease) (HCC) (POA: Unknown) Page kidney (POA: Unknown) VENKAT (acute kidney injury) (HCC) (POA: Unknown) Stage 3 chronic kidney disease (HCC) (POA: Unknown) Hyperphosphatemia (POA: Unknown) Anemia due to stage 3 chronic kidney disease (HCC) (POA: Unknown) Acute blood loss anemia (POA: Unknown) Resolved Problems: Abdominal pain (POA: Unknown) POA = Present On Admission ESRD on dialysis, new since this admission. TDC placed 05/17. Still making some urine UOP /24hr 425mL Dialysis outpatient MWF, make sure pt has a chair prior to discharge PAGE kidney/ left renal active hemorrhage into subcapsular space and into retroperitoneum after renal biopsy 05/17. S/p coil and embolization with IR on 05/22, hemorrhage resolved. Required 1u PRBC on 05/24 Hypertensive emergency in setting of baseline HTN likely 2/2 to renal compression and activation ofRAAS given renal hematoma- resolved. Continued hypertension increased home dose coreg to 25mg BID, amlodipine to 5mg BID. Anemia, Acute blood loss with anemia of chronic disease component. Has not required further blood transfusions after 05/25. Hgb is stable. Off all antimicrobial therapy. Started empiric abx for fever on 05/24, clx returned with NGTD and abxd/c'd on 05/26. No further fevers. Hyponatremia improving. Mild hyponatremia today- improving with dialysis and strict fluid intake of1.5L/day Hyperphosphatemia- improving with renal diet & dialysis HFpEF 2/2 HTN DVT ppx: heparin GI ppx: none Bowel reg: senna-docusate BID, miralax BID- did not take pm dose yesterday or am dose today BM 04/27 x2. Lines: TDC Chronic conditions: NEURO No acute concerns Analgesia - Tylenol 650mg PRN pain or fever - Oxy IR 2.5mg PRN po q6 mod pain - Current Pain Score: 0 (no pain) (05/28/24 0400) RESP No acute concerns. Recent PNA. - stable on room air CV Hypertensive emergency in setting of active renal bleeding. Hx of hypertension, on 05/22 received 10mg hydralazine 8am, 2pm. & nitro 100mcg at 1301 for blood pressure control - resolved Hemorrhage, monitor for s/s of hemorrhagic shock- resolved HFpEF - inc home coreg dose to 25mg BID. inc amlodipine to home dose 5mg BID - goal SBP 150-160 - TTE 03/30/24- LVEF 65-70%, LV ventricular hypertrophy, grade II diastolic dysfunction - lactic acid WNL GI/HEPATOBILIARY No acute concerns - ok for diet, renal. - Last BM = Last Bowel Movement: 05/27/24 (05/27/24 2100) - Bowel regimen: senna- d/c'd - Stress ulcer ppx: none RENAL/FEN Ckd 4, rapidly declining renal function s/p left renal biopsy and TDC placement on 05/17 with [facility] IR, 05/22 s/p left renal angiogram and possible embolization with IR for active extravasation seen on CTAwith concern for pseudoaneurysm and expanding subcapsular renal hematoma seen on both CT and on abdominal US. PAGE kidney Subacute moderate hyponatremia improving, now mild hyponatremia. likely secondary to renal failure and fluid retention. - hyponatremia, mild asx. Continue to monitor b/ likey 2/2 hypervolemia 2/2 renal failure, fluid restriction 1.5L intake - nephrology following appreciate recs - 05/17 renal bx: vascular changes consistent with malignant hypertension, acute tubular injury. No evidence of glomerulonephritis or an immune complex mediate process. Interstitial fibrosis and tubular atrophy, 15-20%. - c/w LAN SPECIALIST sevelemar, vit D, - maintain serum K>4, P>3, Mg>2 - Renal dosing and medication considerations adjusted for glomerular filtration rate - Daily weights - ok for d/c once ensured dialysis chair is available INFECTIOUS DISEASES No acute concerns - abx d/c'd 05/26 - Ua clx pending - bld clx NGRD - pro cindy initial 0.57, repeat 0.7 - CTA ABD/ Pelvis 05/25 no evidence of active hemorrhage, similar size large left peripnephric hematoma ENDOCRINE Hx hypothyroidism - Blood Glucose Monitoring (BGM) Goal: 140-180 - Glycemic Control: continue to monitor need for sliding scale Most recent: Glucose (Bedside): 78 (05/23/24 1200) Last 24 hours: No data recorded Last 36 hours: No data recorded Last 48 hours: No data recorded - c/w LAN SPECIALIST levothyroxine 200mcg HEMATOLOGIC Active left renal hemorrhage s/p renal biopsy s/p IR guided embolization Anemia, mixed picture. Both anemia of chronic disease and acute blood loss anemia. - baseline hgb 13, hgb stable - 1 u PRBC 05/24 - CBC BID - DVT ppx: SCBs & TEDS and holding chemical AC due to concern of bleed - hep dvt ppx MSK/DERM No acute concerns - PT/OT consulted, appreciate recommendations - Wound care: none L/D/As LINES ALL Duration Dialysis Catheter Double Lumen Right Internal jugular 10 days Peripheral Line Lower;Right 20 Gauge 3 days P.T./O.T./MOBILITY: Consulted GLOBAL ISSUES: Disposition: likely ok for discharge today Patient's decisional capacity: has capacity to make decisions Communication with Patient/Family: will update this afternoon Patient was discussed with attending physician, MD Cuba Bush MD EM PGY3 Associated attestation - Gali Hernandez MD - 05/28/2024 7:42 PM EDT I saw and evaluated the patient today. I have reviewed the resident/fellow physician note and agree. No editing needed. Exam Vitals stable On room air Walking without difficulty Mild left flank discomfort on percussion but better than before Soft nontender abdominal exam No cyanosis of skin No peripheral edema Labs reviewed. DX: Left kidney hematoma post renal biopsy, embolized, no evidence of ongoing bleeding Outpatient HD confirmed to start on Tue of this week with early am eval by [place] [employer] Supervisor followed by HD session. Discharged home. Day of discharge 25 min * Delonte Mayorga MD - 05/27/2024 11:06 AM EDT DIALYSIS PROGRESS NOTE - Nephrology [facility]-[address] [address] Name: Fly De Luna Location: [facility] A546/[id number] Date: 05/27/2024 Time: 11:06 AM SUBJECTIVE: S/p HD#3 yesterday with UF 1600 ml He feels well today and wants to go home Dialysis unit confirmed MWF but no start date specified therefore he needs to stay for dialysis tomorrow OBJECTIVE: Most Recent Vital Signs: BP: 144 mmHg/89 mmHg (05/27/24799) Pulse: 75 (05/27/24799) Resp: 18 (05/27/24799) Temp: 36.78 C (05/27/24799) Temp Summary: Temp Min: 36.4 C (97.5 F) Max: 37 C (98.6 F) SpO2: 96 % (05/27/24799) O2 flow rate: 2 L/MIN (09/05/24 0958) Supplemental O2 Delivery: Room Air, None (05/27/24 1100) Wt Readings from Last 4 Encounters: 05/23/24 107.3 kg (236 lb 8.9 oz) 05/21/24 106.6 kg (235 lb) 05/09/24 105.2 kg (232 lb) 05/09/24 104.5 kg (230 lb 6.4 oz) I/O Brief: Intake/Output Summary (Last 24 hours) at 05/27/2024 1106 Last data filed at 05/27/2024 0900 Gross per 24 hour Intake 720 ml Output 1800 ml Net -1080 ml GEN: NAD CV: RRR no M/R/G PULM: CTAB ABD: soft, NT, ND, +BS EXT: 1+ edema ACCESS: TDC LABS Lab results within last 7 days (see chart for full results) Units 05/27/24 0556 05/26/24 0547 05/25/24 1710 Sodium mmol/L 132* 130* 132* Potassium mmol/L 4.3 4.5 4.1 Chloride mmol/L 95* 95* 96* CO2 mmol/L 24 21* 22 BUN mg/dL 53* 68* 61* Creatinine mg/dL 7.0* 8.3* 7.4* Lab results within last 7 days (see chart for full results) Units 05/27/24 0556 05/26/24 1716 05/26/24 0547 HGB g/dL 8.3* 8.2* 7.4* Lab results within last 7 days (see chart for full results) Units 05/27/24 0556 05/26/24 0547 05/25/24 1710 05/25/24 0343 Calcium mg/dL 9.0 8.8 8.7 8.6 Phosphorus mg/dL 5.3* 6.2* -- 7.3* A/P: 53yo with VENKAT-D (05/24) on CKD4 s/p renal biopsy complicated by subcapsular/RP bleed s/p IR embolization, hypertension 2/2 Page kidney -renal 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, 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), 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 -no signs of renal recovery -HD#3 yesterday -next HD tomorrow to align with outpatient MWF schedule ([facility]), orders written -will try to remove more fluid as he is developing some edema -he can then be discharged after dialysis if outpatient start date confirmed * Cuba Gómez MD - 05/27/2024 7:36 AM EDT CRITICAL CARE MEDICINE - PROGRESS NOTE [facility]-[address] [address] Name: Fly De Luna Location: [facility] [id number] Date: 05/27/2024 Time: 7:36 AM Date of Admission: 05/22/2024 Hospital Day: 5 PATIENT DESCRIPTION: 53 yomale with PMH of HTN, hypothyroidism, HLD, CKD 4, recent L renal biopsy 05/19 who presented to [facility] for severe left flank pain, transferred to [facility], found to have a left perirenal hematoma with active hemorrhage into retroperitoneum from likely pseudoaneurysm. HPI/EVENTS OF NOTE: 05/22- ad'd to [facility] under medicine service. CTA = L perirenal hematoma with active hemorrhage into retroperitoneum from likely pseudoaneurysm.Pt taken for emergent renal arteriography with coil and embolization of inferior pole arcuate branch. ad'd to ICU post procedure. 05/24 first HD session. required 1 u PRBC and spiked fever. Started on broad spectrum abx Overnight, no acute events. Afebrile SBP 123-140 HR 70-80 RR 15-18 90-100s on room air Net I/O -740 mL , 400mL UOP/ 24hr; 1.6L off during dialysis 2 BM 05/25 CONSTITUTIONAL DATA: Blood Pressure: 138/97 mmHg Last 12H: Most Recent Systolic BP Av mmHg Min: 123 mmHg Max: 138 mmHg Pulse: 76 Last 12H: Pulse Av.3 Min: 70 Max: 76 Temperature: 36.9 C (98.4 F) Last 12H: Most Recent Temperature Av.8 C Min: 36.39 C Max: 37 C Respiratory Rate: 17 O2 Saturation: 97 % Intake/Output Summary (Last 24 hours) at 05/27/2024 0736 Last data filed at 05/26/2024 1900 Gross per 24 hour Intake 720 ml Output 2000 ml Net -1280 ml Net Since Admission: Physical Examination General appearance: alert and oriented overall In no acute distress. HEENT: opens eyes spontaneously. EOMI. Pupils equal and reactive b/l. AT/NC CV: regular rate and rhythm Pulm: CTAB. Overall no significant inc work of breathing, GI: Abdomen mildly distended and mild TTP throughout. No rebound, rigidity, or guarding MSK:moves all 4 extremities. Neuro: alert and oriented. Skin: no obvious rashes UOP = Urine Output Urine Output Source: Urinal (05/26/241999) Voiding: Moderate (05/25/241599) Urine Output (ml) (Excludes Catheters): 200 ml (05/26/24 1600) Bladder Scan: 300 (05/26/24 0000) Last BM = Last Bowel Movement: 05/25/24 (05/25/24 1600) Laboratory Values: Lab results within last 7 days (see chart for full results) Units 05/25/24 0343 05/22/24 0157 Lactate mmol/L 0.8 1.1 Lab results within last 7 days (see chart for full results) Units 05/27/24 0556 05/26/24 1716 05/26/24 0547 05/22/24 0758 05/22/24 0003 HGB g/dL 8.3* 8.2* 7.4* < > 10.8* HCT % 26.6* 26.1* 23.2* < > 33.8* WBC K/uL 11.08* 11.95* 13.11* < > 12.04* PLT K/uL 254 244 214 < > 174 Neutrophils % % -- -- -- -- 87.3* Monocytes % % -- -- -- -- 6.2 Eosinophils % % -- -- -- -- 1.5 < > = values in this interval not displayed. Lab results within last 7 days (see chart for full results) Units 05/27/24 0556 05/26/24 0547 05/25/24 1710 Sodium mmol/L 132* 130* 132* Potassium mmol/L 4.3 4.5 4.1 Chloride mmol/L 95* 95* 96* CO2 mmol/L 24 21* 22 BUN mg/dL 53* 68* 61* Creatinine mg/dL 7.0* 8.3* 7.4* Lab results within last 7 days (see chart for full results) Units 05/22/24 0003 Protein g/dL 6.5 Bilirubin, Total mg/dL 1.5* Alkaline Phosphatase U/L 46 AST U/L 63* ALT U/L 32 Microbiology: Radiographic & Other Studies: No imaging results in the last 72 hours Current Facility-Administered Medications Medication Dose Route Frequency Provider Polyethylene Glycol 3350 (Miralax) oral powder 17 g 1 Packet Oral BID (899,2099) Ksenia Lea DO senna-docusate (Senokot-S) 1 Tablet 1 Tablet Oral BID(AM/PM) [place] Gómez MD Acetaminophen (Tylenol) tab 650 mg 650 mg Oral Q6H PRN [place] Gómez MD amLODIPine (Norvasc) tab 5 mg 5 mg Oral BID(AM/PM) [place] Gómez MD Carvedilol (Coreg) tab 25 mg 25 mg Oral BID (AM/PM meals) [place] Gómez MD hEParin inj 5,000 Units 5,000 Units Subcutaneous Q8H Ksenia Lea DO oxyCODONE (Oxy IR) tab 5 mg 5 mg Oral Q6H PRN [place] Gómez MD oxyCODONE (Roxicodone) oral syrup 2.5 mg 2.5 mg Oral Q4H PRN [place] Gómez MD Simethicone (Mylicon) chew tab 80 mg 80 mg Oral Q6H PRN Trevor Rojas DO sodium citrate 4% (Anticoagulant Sodium Citrate) inj 3 mL 3 mL Dialysis catheter On dialysis Kamilla Ortega CRNP chlorHEXIDINE (Periogard) 0.12 % oral rinse 15 mL 15 mL Oral mucosal membrane BID (799,1999) [place] Gómez MD cholecalciferol (VIT D3) (Vitamin D3) tab 1,000 Units 1,000 Units Oral Daily(AM) Vikas Agosto MD labetalol (Trandate) inj 10 mg 10 mg Intravenous Q1H PRN Eloise Schofield MD levothyroxine (Levoxyl) tab 200 mcg 200 mcg Oral Daily 0630 Vikas Agosto MD Oral Hygiene: Mouth Swab with dentifrice Oral Q4H Limited (00;04;12;16) [place] Gómez MD Sevelamer Carbonate (Renvela) tab 800 mg 800 mg Oral With meals Vikas Agosto MD sodium chloride 0.9 % flush peripheral jordan 3 mL 3 mL IV Push Q8H [place] Gómez MD sodium chloride 0.9 % flush/inj 3 mL 3 mL IV Push PRN Vikas Agosto MD CRITICAL CARE SYSTEM REVIEW & ASSESSMENT/PLAN: Active Problems: Renal hematoma, left (POA: Unknown) ESRD (end stage renal disease) (HCC) (POA: Unknown) Abdominal pain (POA: Unknown) Page kidney (POA: Unknown) VENKAT (acute kidney injury) (HCC) (POA: Unknown) Stage 3 chronic kidney disease (HCC) (POA: Unknown) Hyperphosphatemia (POA: Unknown) Anemia due to stage 3 chronic kidney disease (HCC) (POA: Unknown) Acute blood loss anemia (POA: Unknown) Resolved Problems: * No resolved hospital problems. * POA = Present On Admission left renal active hemorrhage into subcapsular space 2/2 renal biopsy on 05/19. S/p coil and embolization with IR on 05/22, hemorrhage resolved. Hypertensive emergency in setting of baseline HTN likely 2/2 to renal compression and activation ofRAAS given renal hematoma, increased home dose coreg to 25mg BID, amlodipine to 5mg BID. - resolved. Blood pressure controlled on above. ESRD, continue dialysis outpatient Anemia, Acute blood loss with anemia of chronic disease component. Has not required further blood transfusions after 05/25. Hgb is stable. Has been afebrile. Clx showing no growth. Antibiotics discontinued Hyponatremia improving. Mild hyponatremia today BM last on 05/25 Chronic conditions: NEURO No acute concerns Analgesia - Tylenol 650mg PRN pain or fever - Oxy IR 2.5mg PRN po q6 mod pain - Current Pain Score: 0 (no pain) (05/26/24 1600) RESP No acute concerns. Recent PNA. - stable on room air CV Hypertensive emergency in setting of active renal bleeding. Hx of hypertension, on 9/3 received 10mg hydralazine 8am, 2pm. & nitro 100mcg at 1301 for blood pressure control Hemorrhage, monitor for s/s of hemorrhagic shock HFpEF - inc home coreg dose to 25mg BID. inc amlodipine to home dose 5mg BID - goal SBP 150-160 - TTE 03/30/24- LVEF 65-70%, LV ventricular hypertrophy, grade II diastolic dysfunction - lactic acid WNL GI/HEPATOBILIARY No acute concerns - ok for diet, renal. - Last BM = Last Bowel Movement: 05/25/24 (05/25/24 1600) - Bowel regimen: senna- docusate BID, increase miralax to BID - Stress ulcer ppx: none RENAL/FEN Ckd 4, rapidly declining renal function s/p left renal biopsy and TDC placement on 05/17 with [facility] IR, 05/22 s/p left renal angiogram and possible embolization with IR for active extravasation seen on CTAwith concern for pseudoaneurysm and expanding subcapsular renal hematoma seen on both CT and on abdominal US. PAGE kidney Subacute moderate hyponatremia improving, now mild hyponatremia. likely secondary to renal failure and fluid retention. - hyponatremia, mild asx. Continue to monitor b/ likey 2/2 hypervolemia 2/2 renal failure, fluid restriction 1.5L intake - nephrology following appreciate recs - 05/17 renal bx: vascular changes consistent with malignant hypertension, acute tubular injury. No evidence of glomerulonephritis or an immune complex mediate process. Interstitial fibrosis and tubular atrophy, 15-20%. - c/w LAN SPECIALIST sevelemar, vit D, - maintain serum K>4, P>3, Mg>2 - Renal dosing and medication considerations adjusted for glomerular filtration rate - Daily weights - ok for d/c once ensured dialysis chair is available for tomorrow. INFECTIOUS DISEASES One prior episode of fever but has since been afebrile. Concern intraabdominal given hematoma. Potential for line infection, relatively new TDC with first HD session yesterday - abx d/c'd 05/26 - Ua clx pending - bld clx NGRD - pro cindy initial 0.57, repeat 0.7 - CTA ABD/ Pelvis 05/25 no evidence of active hemorrhage, similar size large left peripnephric hematoma ENDOCRINE Hx hypothyroidism - Blood Glucose Monitoring (BGM) Goal: 140-180 - Glycemic Control: continue to monitor need for sliding scale Most recent: Glucose (Bedside): 78 (05/23/24 1200) Last 24 hours: No data recorded Last 36 hours: No data recorded Last 48 hours: No data recorded - c/w LAN SPECIALIST levothyroxine 200mcg HEMATOLOGIC Active left renal hemorrhage s/p renal biopsy s/p IR guided embolization Anemia, mixed picture. Both anemia of chronic disease and acute blood loss anemia. - baseline hgb 13, hgb stable - 1 u PRBC 05/24 - CBC BID - DVT ppx: SCBs & TEDS and holding chemical AC due to concern of bleed - hep dvt ppx MSK/DERM No acute concerns - PT/OT consulted, appreciate recommendations - Wound care: none L/D/As LINES ALL Duration Dialysis Catheter Double Lumen Right Internal jugular 9 days Peripheral Line Right Wrist 22 Gauge 4 days Peripheral Line Lower;Right 20 Gauge 2 days P.T./O.T./MOBILITY: Consulted GLOBAL ISSUES: Disposition: likely ok for discharge today Patient's decisional capacity: has capacity to make decisions Communication with Patient/Family: will update this afternoon Patient was discussed with attending physician, MD Ksenia Angulo DO PGY-2 Internal Medicine Associated attestation - Yash Rooney MD - 05/27/2024 3:22 PM EDT I saw and evaluated the patient today. I have reviewed the resident/fellow physician note and agree. No major events. Hemodynamically stable. Keep on Norvasc/Coreg. H&H remained stable, keep type and screen active. Off antimicrobial therapy. As per mental health social worker he does have a slot but can not confirm timing for tomorrow session so would keep additional day in the hospital and dialyzed tomorrow as per Nephrology and after confirmation of outpatient hemodialysis slot by Case Management tomorrow patient can be discharge after dialysis session tomorrow. Discussed with patient at bedside in detail. No new question remained at this time. MedSurg status. Remainder plan as documented below. I spent a total of 35 minutes coordinating, documenting, and providing care for this patient excluding time spent in the performance of separately billed services. * Delonte Mayorga MD - 05/26/2024 10:22 AM EDT DIALYSIS PROGRESS NOTE - Nephrology [facility]-[address] [address] Name: Fly De Luna Location: [facility] [id number] Date: 05/26/2024 Time: 10:22 AM SUBJECTIVE: The patient was seen during the hemodialysis procedure. Tolerating well UOP 300 ml documented yesterday Cultures remain neg - off antibiotics OBJECTIVE: Most Recent Vital Signs: BP: 132 mmHg/83 mmHg (05/26/24 1020) Pulse: 69 (05/26/24 1020) Resp: 18 (05/26/24815) Temp: 37.11 C (05/26/24815) Temp Summary: Temp Min: 36 C (96.8 F) Max: 37.5 C (99.5 F) SpO2: 100 % (05/26/2450) O2 flow rate: 2 L/MIN (05/24/2458) Supplemental O2 Delivery: Room Air, None (05/26/24 0950) Wt Readings from Last 4 Encounters: 05/23/24 107.3 kg (236 lb 8.9 oz) 05/21/24 106.6 kg (235 lb) 05/09/24 105.2 kg (232 lb) 05/09/24 104.5 kg (230 lb 6.4 oz) I/O Brief: Intake/Output Summary (Last 24 hours) at 05/26/2024 1022 Last data filed at 05/26/2024 0800 Gross per 24 hour Intake 1259.9 ml Output 200 ml Net 1059.9 ml GEN: NAD CV: RRR no M/R/G PULM: CTAB ABD: soft, NT, ND, +BS EXT: no edema ACCESS: TDC LABS Lab results within last 7 days (see chart for full results) Units 05/26/24 0547 05/25/24 1710 05/25/24 0343 Sodium mmol/L 130* 132* 129* Potassium mmol/L 4.5 4.1 4.3 Chloride mmol/L 95* 96* 93* CO2 mmol/L 21* 22 18* BUN mg/dL 68* 61* 89* Creatinine mg/dL 8.3* 7.4* 9.6* Lab results within last 7 days (see chart for full results) Units 05/26/24 0547 05/25/24 1710 05/25/24 0343 HGB g/dL 7.4* 7.6* 7.3* Lab results within last 7 days (see chart for full results) Units 05/26/24 0547 05/25/24 1710 05/25/24 0343 05/24/24 0559 Calcium mg/dL 8.8 8.7 8.6 8.7 Phosphorus mg/dL 6.2* -- 7.3* 9.2* A/P: 53yo with VENKAT-D (05/24) on CKD4 s/p renal biopsy complicated by subcapsular/RP bleed s/p IR embolization, hypertension 10/21 Page kidney -renal 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, 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), 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 -no signs of renal recovery -HD#3 today -UF as tolerated -BP controlled -transfuse prn * Kourtney Parikh [facility] - 05/26/2024 7:49 AM EDT PHARMACY PHARMACOKINETIC CONSULT [address] [address] Name: Fly De Luna Location: [facility] A546/[id number] Date: 05/26/2024 Time: 7:49 AM Requesting Service: Critical Care Red Bacteria being treated: Empiric Source of infection: Unknown Medication(s) being managed: Vancomycin Pharmacokinetic calculations will be performed without utilizing [employer] software due to meeting exclusion criteria (BLAKE Stage 2 or 3 VENKAT, or receiving renal replacement therapy [iHD, CRRT, PD]). Lab information: Lab Results Component Value Date/Time WBC 13.11 (H) 05/26/2024 05:47 AM WBC 12.95 (H) 05/25/2024 05:10 PM WBC 11.88 (H) 05/25/2024 03:43 AM WBC 11.08 (H) 05/24/2024 07:06 PM WBC 11.51 (H) 05/24/2024 01:24 PM WBC 5.5 04/06/1997 08:12 AM Lab Results Component Value Date/Time BUN 68 (H) 05/26/2024 05:47 AM BUN 61 (H) 05/25/2024 05:10 PM BUN 89 (H) 05/25/2024 03:43 AM BUN 106 (H) 05/24/2024 05:59 AM BUN 100 (H) 05/23/2024 05:22 PM BUN 17 04/06/1997 08:12 AM Lab Results Component Value Date/Time CREAT 8.3 (H) 05/26/2024 05:47 AM CREAT 7.4 (H) 05/25/2024 05:10 PM CREAT 9.6 (H) 05/25/2024 03:43 AM CREAT 11.0 (H) 05/24/2024 05:59 AM CREAT 10.0 (H) 05/23/2024 05:22 PM ANTIMICROBIALS GIVEN (last 28 hours) Date/Time Action Medication Dose Rate 05/26/24 0356 New Bag cefepime in dextrose (Maxipime) ivpb 1 g 1 g 100 mL/hr 05/25/24 0437 New Bag Vancomycin (Vancocin) 2,500 mg in NSS 500 mL ivpb 2,500 mg 214 mL/hr Wt Readings from Last 1 Encounters: 05/23/24 107.3 kg (236 lb 8.9 oz) Dosing and levels to date: Lab Results Component Value Date/Time VANCORANDOM 21.2 05/26/2024 05:47 AM Day of Therapy Date Dose Admin Time Level (mcg/mL) Collected Time Notes/Comment 1 05/25 2500 mg x1 04:37 2 05/26 500 mg x1 21.2 05:47 Impression: Patient is a 53 year old male with declining renal function ordered cefepime and vancomycin for sepsis. Nephrology is following and a consistent dialysis schedule is not set. Plan/Recommendations: Given plan for dialysis today with1 L fluid removal and continued urine output, administer 500 mg IV Vancomycin followed by no maintenance regimen due to renal function. Obtain random level with AM labs on 05/27/24 for further dosing. If patient having hemodialysis administer dose after hemodialysis . Pharmacy will continue to follow and dose as appropriate by renal function, culture results, infectious disease input, and overall clinical status. Kourtney Parikh RPh * Ksenia Lea, - 05/26/2024 6:53 AM EDT CRITICAL CARE MEDICINE - PROGRESS NOTE [facility]-[address] [address] Name: Fly De Luna Location: [facility] A546/[id number] Date: 05/26/2024 Time: 9:30 AM Date of Admission: 05/22/2024 Hospital Day: 4 PATIENT DESCRIPTION: 53 yomale with PMH of HTN, hypothyroidism, HLD, CKD 4, recent L renal biopsy 05/19 who presented to [facility] for severe left flank pain, transferred to [facility], found to have a left perirenal hematoma with active hemorrhage into retroperitoneum from likely pseudoaneurysm. HPI/EVENTS OF NOTE: 05/22- ad'd to [facility] under medicine service. CTA = L perirenal hematoma with active hemorrhage into retroperitoneum from likely pseudoaneurysm.Pt taken for emergent renal arteriography with coil and embolization of inferior pole arcuate branch. ad'd to ICU post procedure. 05/24 first HD session. required 1 u PRBC and spiked fever. Started on broad spectrum abx Overnight, no acute events. This morning patient appears comfortable. He wants to walk around the unit and wash up. He has no acute complaints. He states he still has not had a significant bowel movement. Attempted to contact patient's significant other for update. There was no answer, left message withcall back number. Afebrile MAP 90-100 HR 70-80 RR 15-20 90-100s on room air Net I/O +1413.8 L , 100 mL UOP 2 BM 05/25 CONSTITUTIONAL DATA: Blood Pressure: 125/86 mmHg Last 12H: Most Recent Systolic BP Av.4 mmHg Min: 123 mmHg Max: 156 mmHg Pulse: 69 Last 12H: Pulse Av.7 Min: 68 Max: 84 Temperature: 37.1 C (98.8 F) Last 12H: Most Recent Temperature Av C Min: 36 C Max: 37.5 C Respiratory Rate: 18 O2 Saturation: 100 % Intake/Output Summary (Last 24 hours) at 05/26/202430 Last data filed at 05/26/2024 0800 Gross per 24 hour Intake 1499.9 ml Output 200 ml Net 1299.9 ml Net Since Admission: Physical Examination General appearance: alert and oriented overall In no acute distress. HEENT: opens eyes spontaneously. EOMI. Pupils equal and reactive b/l. AT/NC CV: regular rate and rhythm Pulm: CTAB. Overall no significant inc work of breathing, GI: Abdomen mildly distended and mild TTP throughout. No rebound, rigidity, or guarding MSK:moves all 4 extremities. Neuro: alert and oriented. Skin: no obvious rashes UOP = Urine Output Urine Output Source: Urinal (05/26/24 0800) Voiding: Moderate (05/25/24 1600) Urine Output (ml) (Excludes Catheters): 200 ml (05/26/24 0800) Bladder Scan: 300 (05/26/24 0000) Last BM = Last Bowel Movement: 05/25/24 (05/25/24 1600) Laboratory Values: Lab results within last 7 days (see chart for full results) Units 05/25/24 0343 05/22/24 0157 Lactate mmol/L 0.8 1.1 Lab results within last 7 days (see chart for full results) Units 05/26/24 0547 05/25/24 1710 05/25/24 0343 05/22/24 0758 05/22/24 0003 HGB g/dL 7.4* 7.6* 7.3* < > 10.8* HCT % 23.2* 23.0* 23.0* < > 33.8* WBC K/uL 13.11* 12.95* 11.88* < > 12.04* PLT K/uL 214 197 190 < > 174 Neutrophils % % -- -- -- -- 87.3* Monocytes % % -- -- -- -- 6.2 Eosinophils % % -- -- -- -- 1.5 < > = values in this interval not displayed. Lab results within last 7 days (see chart for full results) Units 05/26/24 0547 05/25/24 1710 05/25/24 0343 Sodium mmol/L 130* 132* 129* Potassium mmol/L 4.5 4.1 4.3 Chloride mmol/L 95* 96* 93* CO2 mmol/L 21* 22 18* BUN mg/dL 68* 61* 89* Creatinine mg/dL 8.3* 7.4* 9.6* Lab results within last 7 days (see chart for full results) Units 05/22/24 0003 Protein g/dL 6.5 Bilirubin, Total mg/dL 1.5* Alkaline Phosphatase U/L 46 AST U/L 63* ALT U/L 32 Microbiology: Radiographic & Other Studies: No imaging results in the last 72 hours Current Facility-Administered Medications Medication Dose Route Frequency Provider [START ON 05/27/2024] Drug Level Check - Vancomycin Random Does Not Apply Once Timed Lab 2hrs Yash Rooney MD Polyethylene Glycol 3350 (Miralax) oral powder 17 g 1 Packet Oral BID (0900,2099) Ksenia Lea DO senna-docusate (Senokot-S) 1 Tablet 1 Tablet Oral BID(AM/PM) Cuba Gómez MD Acetaminophen (Tylenol) tab 650 mg 650 mg Oral Q6H PRN [place] Gómez MD amLODIPine (Norvasc) tab 5 mg 5 mg Oral BID(AM/PM) [place] Gómez MD Carvedilol (Coreg) tab 25 mg 25 mg Oral BID (AM/PM meals) [place] Gómez MD hEParin inj 5,000 Units 5,000 Units Subcutaneous Q8H Ksenia Lea DO oxyCODONE (Oxy IR) tab 5 mg 5 mg Oral Q6H PRN [place] Gómez MD oxyCODONE (Roxicodone) oral syrup 2.5 mg 2.5 mg Oral Q4H PRN [place] Gómez MD Simethicone (Mylicon) chew tab 80 mg 80 mg Oral Q6H PRN Trevor Rojas DO sodium citrate 4% (Anticoagulant Sodium Citrate) inj 3 mL 3 mL Dialysis catheter On dialysis Kamilla Ortega CRNP chlorHEXIDINE (Periogard) 0.12 % oral rinse 15 mL 15 mL Oral mucosal membrane BID (0800,1999) [place] Gómez MD cholecalciferol (VIT D3) (Vitamin D3) tab 1,000 Units 1,000 Units Oral Daily(AM) Vikas Agosto MD labetalol (Trandate) inj 10 mg 10 mg Intravenous Q1H PRN Eloise Schofield MD levothyroxine (Levoxyl) tab 200 mcg 200 mcg Oral Daily 0630 Vikas Agosto MD Oral Hygiene: Mouth Swab with dentifrice Oral Q4H Limited (00;04;12;16) [place] Gómez MD Sevelamer Carbonate (Renvela) tab 800 mg 800 mg Oral With meals Vikas Agosto MD sodium chloride 0.9 % flush peripheral jordan 3 mL 3 mL IV Push Q8H [place] Gómez MD sodium chloride 0.9 % flush/inj 3 mL 3 mL IV Push PRN Vikas Agosto MD CRITICAL CARE SYSTEM REVIEW & ASSESSMENT/PLAN: Active Problems: Renal hematoma, left (POA: Unknown) ESRD (end stage renal disease) (HCC) (POA: Unknown) Abdominal pain (POA: Unknown) Page kidney (POA: Unknown) VENKAT (acute kidney injury) (HCC) (POA: Unknown) Stage 3 chronic kidney disease (HCC) (POA: Unknown) Hyperphosphatemia (POA: Unknown) Anemia due to stage 3 chronic kidney disease (HCC) (POA: Unknown) Acute blood loss anemia (POA: Unknown) Resolved Problems: * No resolved hospital problems. * POA = Present On Admission left renal active hemorrhage into subcapsular space 2/2 renal biopsy on 05/19. S/p coil and embolization with IR on 05/22, hemorrhage resolved/ resolving, currently asx with resolution in pain Hypertensive emergency in setting of baseline HTN likely 2/2 to renal compression and activation ofRAAS given renal hematoma, increased home dose coreg to 25mg BID, amlodipine to 5mg BID. VENKAT on CKD, 2/2 chronic hypertension, PAGE kidney-underwent dialysis yesterday continue to monitor for need of dialysis, planned for today at 11am Anemia, Acute blood loss with anemia of chronic disease component. Required 1u PRBC yesterday, continue to trend hgb and transfuse as needed for hgb <7. Febrile, concern infection vs hematoma reabsorption. Empiric abx started with vanc and cefepime. Ctabd/pelvis ordered- no change in hematoma , bld clx, urine clx, lactate neg. Procal slight elevation 0.7 Chronic mild hyponatremia with Na 129, likely due to hypervolemia, restrict fluid intake to 1.5L today. Last BM on admission 05/21. Inc bowel reg to senna docusate BID and jian lax qd Chronic conditions: NEURO No acute concerns Analgesia - Tylenol 650mg PRN pain or fever - Oxy IR 2.5mg po q6 mod pain - oxy IR 5mg po q6h severe pain - Current Pain Score: 0 (no pain) (05/26/24 0800) RESP No acute concerns. Recent PNA. - stable on room air CV Hypertensive emergency in setting of active renal bleeding. Hx of hypertension, on 05/22 received 10mg hydralazine 8am, 2pm. & nitro 100mcg at 1301 for blood pressure control Hemorrhage, monitor for s/s of hemorrhagic shock HFpEF - inc home coreg dose to 25mg BID. inc amlodipine to home dose 5mg BID - goal SBP 150-160 - TTE 03/30/24- LVEF 65-70%, LV ventricular hypertrophy, grade II diastolic dysfunction - lactic acid WNL GI/HEPATOBILIARY No acute concerns - ok for diet, renal. - Last BM = Last Bowel Movement: 05/25/24 (05/25/24 1600) - Bowel regimen: senna- docusate BID, increase miralax to BID - Stress ulcer ppx: none RENAL/FEN Ckd 4, rapidly declining renal function s/p left renal biopsy and TDC placement on 05/17 with [facility] IR, 05/22 s/p left renal angiogram and possible embolization with IR for active extravasation seen on CTAwith concern for pseudoaneurysm and expanding subcapsular renal hematoma seen on both CT and on abdominal US. PAGE kidney Subacute moderate hyponatremia 129, likely secondary to renal failure and fluid retention. - hyponatremia, mild asx. Continue to monitor b/ likey 2/2 hypervolemia 2/2 renal failure, fluid restriction 1.5L intake - HD today, nephrology following appreciate recs - 05/17 renal bx: vascular changes consistent with malignant hypertension, acute tubular injury. No evidence of glomerulonephritis or an immune complex mediate process. Interstitial fibrosis and tubular atrophy, 15-20%. - c/w LAN SPECIALIST sevelemar, vit D, - maintain serum K>4, P>3, Mg>2 - Renal dosing and medication considerations adjusted for glomerular filtration rate - Daily weights INFECTIOUS DISEASES One prior episode of fever but has since been afebrile. Concern intraabdominal given hematoma. Potential for line infection, relatively new TDC with first HD session yesterday -Discontinue vancomycin and cefepime given patient has remained afebrile and clinically stable - Ua clx pending - bld clx NGRD - pro cindy initial 0.57, repeat 0.7 - CTA ABD/ Pelvis 05/25 no evidence of active hemorrhage, similar size large left peripnephric hematoma ENDOCRINE Hx hypothyroidism - Blood Glucose Monitoring (BGM) Goal: 140-180 - Glycemic Control: continue to monitor need for sliding scale Most recent: Glucose (Bedside): 78 (05/23/24 1200) Last 24 hours: No data recorded Last 36 hours: No data recorded Last 48 hours: No data recorded - c/w LAN SPECIALIST levothyroxine 200mcg HEMATOLOGIC Active left renal hemorrhage s/p renal biopsy s/p IR guided embolization Anemia, mixed picture. Both anemia of chronic disease and acute blood loss anemia. - baseline hgb 13, - 1 u PRBC 05/24 - CBC BID - DVT ppx: SCBs & TEDS and holding chemical AC due to concern of bleed - hep dvt ppx MSK/DERM No acute concerns - PT/OT consulted, appreciate recommendations - Wound care: none L/D/As LINES ALL Duration Dialysis Catheter Double Lumen Right Internal jugular 8 days Peripheral Line Right Wrist 22 Gauge 3 days Peripheral Line Lower;Right 20 Gauge 1 day P.T./O.T./MOBILITY: Consulted GLOBAL ISSUES: Disposition: written for med surg Patient's decisional capacity: has capacity to make decisions Communication with Patient/Family: will update this afternoon Patient was discussed with attending physician, MD Ksenia Angulo DO PGY-2 Internal Medicine Associated attestation - Yash Rooney MD - 05/26/2024 2:46 PM EDT I saw and evaluated the patient today. I have reviewed the resident/fellow physician note and agree. Hemodynamically stable. Received additional session of dialysis today. Keep type and screen active.Daily CBC. Transfuse for hemoglobin below 7. Off antimicrobial therapy monitor fever curve and white count. Follow up with culture data-no growth to date. Nephrology follow-up noted; discharge plan once outpatient hemodialysis schedule arrange after discussion with Nephrology. Case Management is working on outpatient hemodialysis slot for the patient. Discussed with patient in detail at bedside. No questions remained at this time. Disposition: MedSurg status. Remainder plan as documented below. I spent a total of 35 minutes coordinating, documenting, and providing care for this patient excluding time spent in the performance of separately billed services. * Lroi Elliott CRNP - 05/25/2024 3:56 PM EDT PROGRESS NOTE - Nephrology [facility]-[address] [address] Name: Fly De Luna Location: [facility] [id number] Date: 05/25/2024 Time: 3:57 PM Interval history past 24 hrs: Seen on dialysis today, tolerated second session well for total UF 700ml. Febrile overnight, infx w/u drawn and started on cefepime + vanco No acute complaints at time of my evaluation. Some UOP. HD stable Denies: SOB, chest pain, N/V, diarrhea, LE edema, or metallic taste OBJECTIVE: Most Recent Vital Signs: BP: 148 mmHg/92 mmHg (05/25/241529) Pulse: 78 (05/25/241529) Resp: 16 (05/25/241529) Temp: 37.5 C (05/25/241529) Temp Summary: Temp Min: 37.1 C (98.8 F) Max: 38.4 C (101.1 F) SpO2: 97 % (05/25/241529) O2 flow rate: 2 L/MIN (05/24/24957) Supplemental O2 Delivery: Room Air, None (05/25/241529) Intake/Output Summary (Last 24 hours) at 05/25/2024 1557 Last data filed at 05/25/2024 1000 Gross per 24 hour Intake 1515.21 ml Output 500 ml Net 1015.21 ml Physical Examination: Gen: in no acute distress Skin: warm, dry, intact HEENT: mucous membranes moist Neck: no JVD, supple Resp: no wheezing or rhonchi b/l CV: regular rate and rhythm, without murmurs Abdomen: soft, nontender, nondistended Extremities: no LE edema Neuro: A&O, conversing appropriately Psych: appropriate Dialysis access: + R IJ TDC intact IMAGING: Imaging from 05/25/24 reviewed independently CTA ABDOMEN PELVIS WITHOUT AND WITH CONTRAST IMPRESSION: No CT evidence of active hemorrhage. Similar size of the large left perinephric hematoma. Nonspecific abnormal enhancement of the right and left kidney may reflect acute tubular necrosis. Pulmonary edema in the lung bases and small bilateral pleural effusions LABS: Reviewed pertinent. Lab results within last 7 days (see chart for full results) Units 05/25/24 0343 05/24/24 0559 05/23/24 1722 Sodium mmol/L 129* 130* 130* Potassium mmol/L 4.3 4.4 4.4 Chloride mmol/L 93* 93* 92* CO2 mmol/L 18* 19* 20* BUN mg/dL 89* 106* 100* Creatinine mg/dL 9.6* 11.0* 10.0* Lab results within last 7 days (see chart for full results) Units 05/25/24 0343 05/24/24 1906 05/24/24 1324 05/24/24 0559 HGB g/dL 7.3* 7.7* 6.9* 7.2* Impression 53 yo F with pmh CKD 4, HTN, hypothyroidism presenting to [facility] with L flank pain after recent renal bx and transferred to [facility] for further mgmt of left perirenal hematoma with active hemorrhage -- subcapsular hematoma after renal biopsy s/p IR embolization -- PAGE kidney -- Hypertension -- Oliguric VENKAT on CKD III likely obstructive 2/2 compression hematoma -- Hypermagnesemia -- Hyponatremia -- Volume status Plan: - s/p second session iHD today, tolerated well. Will plan for third session tomorrow. Making some urine, total documented UOP 600ml yesterday. Cont to monitor for renal recovery with accurate I&os, daily RFP, and regular bladder scanning - blood pressures slightly elevated, consider titrating amlodipine to 10mg daily if persistently elevated - phos 7.3, cont phos binder with meals - renal dialysis diet - goal MAP>65 to prevent further renal injury - rest of mgmt per primary team Pt was discussed with attending Dr. Mayorga I spent a total of 27 minutes coordinating, documenting, and providing care for this patient excluding time spent in the performance of separately billed services or time spent by another provider/QHP. ? Lori BestubbANDIE 05/25/24 [email or web address] Associated attestation - Delonte Mayorga MD - 05/25/2024 8:03 PM EDT I have reviewed the advanced practitioner's documentation on the date of service referenced in note, and I agree with, and take responsibility for the plan of care. Patient seen on hemodialysis. * Cuba Gómez MD - 05/25/2024 6:48 AM EDT CRITICAL CARE MEDICINE - PROGRESS NOTE [facility]-[address] [address] Name: Fly De Luna Location: [facility] [id number] Date: 05/25/2024 Time: 6:58 AM Date of Admission: 05/22/2024 Hospital Day: 3 PATIENT DESCRIPTION: 53 yomale with PMH of HTN, hypothyroidism, HLD, CKD 4, recent L renal biopsy 05/19 who presented to [facility] for severe left flank pain, transferred to [facility], found to have a left perirenal hematoma with active hemorrhage into retroperitoneum from likely pseudoaneurysm. HPI/EVENTS OF NOTE: 05/22- ad'd to [facility] under medicine service. CTA = L perirenal hematoma with active hemorrhage into retroperitoneum from likely pseudoaneurysm.Pt taken for emergent renal arteriography with coil and embolization of inferior pole arcuate branch. ad'd to ICU post procedure. 05/24 first HD session. required 1 u PRBC and spiked fever. Started on broad spectrum abx OVN Temp was uptrending, stopped scheduled tylenol, spiked fever. Obtained bld clx, urine clx, procal, lactate, started cefepime and vanco. CT and/pelvis with IV contrast ordered. Tmax 38.4C SBP 140-150 HR 70-80 RR 15-20 SpO2 low- mid 90's UOP 400cc/12hr (0.3cc/kg/hr) total NET -1.5L ; 24hr net -802 CONSTITUTIONAL DATA: Blood Pressure: 151/99 mmHg Last 12H: Most Recent Systolic BP Av.6 mmHg Min: 111 mmHg Max: 163 mmHg Pulse: 78 Last 12H: Pulse Av.2 Min: 74 Max: 83 Temperature: 37.3 C (99.1 F) Last 12H: Most Recent Temperature Av.7 C Min: 37.28 C Max: 38.39 C Respiratory Rate: 14 O2 Saturation: 92 % Intake/Output Summary (Last 24 hours) at 05/25/2024 0658 Last data filed at 05/25/2024 0600 Gross per 24 hour Intake 1021.32 ml Output 1300 ml Net -278.68 ml Net Since Admission: Physical Examination General appearance: alert and oriented overall In no acute distress. HEENT: opens eyes spontaneously. EOMI. Pupils equal and reactive b/l. AT/NC CV: regular rate and rhythm Pulm: lungs with mild rhonchi at bases, clear at apex. Overall no significant inc work of breathing, GI: no tenderness to palpation of abd No evidence of busing, abdomen soft, non distended, not rigid MSK:moves all 4 extremities. Right groin access, dressing c/d/I, soft Neuro: alert and oriented. No FND Skin: no rashes or significant busing.warm and dry UOP = Urine Output Urine Output Source: Urinal (05/25/24 0300) Voiding: Small (05/22/24 1100) Urine Output (ml) (Excludes Catheters): 100 ml (05/25/24 0300) Last BM = Last Bowel Movement: 05/21/24 (05/22/241999) Laboratory Values: Lab results within last 7 days (see chart for full results) Units 05/25/24 0343 05/22/24 0157 Lactate mmol/L 0.8 1.1 Lab results within last 7 days (see chart for full results) Units 05/25/24 0343 05/24/24 1906 05/24/24 1324 05/22/24 0758 05/22/24 0003 HGB g/dL 7.3* 7.7* 6.9* < > 10.8* HCT % 23.0* 23.4* 21.3* < > 33.8* WBC K/uL 11.88* 11.08* 11.51* < > 12.04* PLT K/uL 190 181 165 < > 174 Neutrophils % % -- -- -- -- 87.3* Monocytes % % -- -- -- -- 6.2 Eosinophils % % -- -- -- -- 1.5 < > = values in this interval not displayed. Lab results within last 7 days (see chart for full results) Units 05/25/24 0343 05/24/24 0559 05/23/24 1722 Sodium mmol/L 129* 130* 130* Potassium mmol/L 4.3 4.4 4.4 Chloride mmol/L 93* 93* 92* CO2 mmol/L 18* 19* 20* BUN mg/dL 89* 106* 100* Creatinine mg/dL 9.6* 11.0* 10.0* Lab results within last 7 days (see chart for full results) Units 05/22/24 0003 Protein g/dL 6.5 Bilirubin, Total mg/dL 1.5* Alkaline Phosphatase U/L 46 AST U/L 63* ALT U/L 32 Microbiology: Radiographic & Other Studies: CTA ABD/PELVIS Result Date: 05/22/[address] abdomen/pelvis obtained earlier on 05/22/2024: Increased size of the large left perirenal hematoma with active hemorrhage into the left retroperitoneum from a probable smallpseudoaneurysm. Pulmonary edema in the lung bases and small bilateral pleural effusions. Critical Result: The information above was relayed directly by me via secure [employer] connect messaging to CAMILA ORTIZ on 05/22/2024 at 12:32 pm who expressed understanding. Current Facility-Administered Medications Medication Dose Route Frequency Provider [START ON 05/26/2024] cefepime in dextrose (Maxipime) ivpb 1 g 1 g IV Piggyback Q24H Lyssa Rojas, DO Vancomycin (Vancocin) 2,500 mg in NSS 500 mL ivpb 2,500 mg IV Piggyback Once Trevor Rojas,DO vancomycin per pharmacy order Does Not Apply Per Pharmacy Trevor Rojas DO Acetaminophen (Tylenol) tab 650 mg 650 mg Oral Q6H PRN Cuba Gómez MD amLODIPine (Norvasc) tab 5 mg 5 mg Oral BID(AM/PM) Cuba Gómez MD Carvedilol (Coreg) tab 25 mg 25 mg Oral BID (AM/PM meals) Cuba Gómez MD hEParin inj 5,000 Units 5,000 Units Subcutaneous Q8H Ksenia Lea DO oxyCODONE (Oxy IR) tab 5 mg 5 mg Oral Q6H PRN Cuba Gómez MD oxyCODONE (Roxicodone) oral syrup 2.5 mg 2.5 mg Oral Q4H PRN Cuba Gómez MD senna-docusate (Senokot-S) 1 Tablet 1 Tablet Oral Daily(AM) Cuba Gómez MD Simethicone (Mylicon) chew tab 80 mg 80 mg Oral Q6H PRN Trevor Rojas DO sodium citrate 4% (Anticoagulant Sodium Citrate) inj 3 mL 3 mL Dialysis catheter On dialysis Kamilla Ortega CRNP chlorHEXIDINE (Periogard) 0.12 % oral rinse 15 mL 15 mL Oral mucosal membrane BID (08,1999) Cuba Gómez MD cholecalciferol (VIT D3) (Vitamin D3) tab 1,000 Units 1,000 Units Oral Daily(AM) Vikas Agosto MD labetalol (Trandate) inj 10 mg 10 mg Intravenous Q1H PRN Eloise Schofield MD levothyroxine (Levoxyl) tab 200 mcg 200 mcg Oral Daily 0630 Vikas Agosto MD Oral Hygiene: Mouth Swab with dentifrice Oral Q4H Limited (00;04;12;16) Cuba Gómez MD Sevelamer Carbonate (Renvela) tab 800 mg 800 mg Oral With meals Vikas Agosto MD sodium chloride 0.9 % flush peripheral jordan 3 mL 3 mL IV Push Q8H Cuba Gómez MD sodium chloride 0.9 % flush/inj 3 mL 3 mL IV Push PRN Vikas Agosto MD CRITICAL CARE SYSTEM REVIEW & ASSESSMENT/PLAN: Active Problems: Renal hematoma, left (POA: Unknown) ESRD (end stage renal disease) (HCC) (POA: Unknown) Abdominal pain (POA: Unknown) Page kidney (POA: Unknown) VENKAT (acute kidney injury) (HCC) (POA: Unknown) Stage 3 chronic kidney disease (HCC) (POA: Unknown) Hyperphosphatemia (POA: Unknown) Anemia due to stage 3 chronic kidney disease (HCC) (POA: Unknown) Acute blood loss anemia (POA: Unknown) Resolved Problems: * No resolved hospital problems. * POA = Present On Admission left renal active hemorrhage into subcapsular space 2/2 renal biopsy on 05/19. S/p coil and embolization with IR on 05/22, hemorrhage resolved/ resolving, currently asx with resolution in pain Hypertensive emergency in setting of baseline HTN likely 2/2 to renal compression and activation ofRAAS given renal hematoma, increased home dose coreg to 25mg BID, amlodipine to 5mg BID. VENKAT on CKD, 2/2 chronic hypertension, PAGE kidney-underwent dialysis yesterday continue to monitor for need of dialysis, planned for today at 11am Anemia, Acute blood loss with anemia of chronic disease component. Required 1u PRBC yesterday, continue to trend hgb and transfuse as needed for hgb <7. Febrile, concern infection vs hematoma reabsorption. Empiric abx started with vanc and cefepime. Ctabd/pelvis ordered- no change in hematoma , bld clx, urine clx, lactate neg. Procal slight elevation 0.7 Chronic mild hyponatremia with Na 129, likely due to hypervolemia, restrict fluid intake to 1.5L today. Last BM on admission 05/21. Inc bowel reg to senna docusate BID and jian lax qd Chronic conditions: NEURO No acute concerns, tired but arousable alert and oriented post procedure Analgesia - Tylenol 650mg PRN pain or fever - Oxy IR 2.5mg po q6 mod pain - oxy IR 5mg po q6h severe pain - Current Pain Score: 0 (no pain) (05/25/24 0600) RESP No acute concerns. Recent PNA. - stable CV Hypertensive emergency in setting of active renal bleeding. Hx of hypertension, on 9/3 received 10mg hydralazine 8am, 2pm. & nitro 100mcg at 1301 for blood pressure control Hemorrhage, monitor for s/s of hemorrhagic shock HFpEF - inc home coreg dose to 25mg BID. inc amlodipine to home dose 5mg BID - goal SBP 150-160 - TTE 03/30/24- LVEF 65-70%, LV ventricular hypertrophy, grade II diastolic dysfunction - lactic acid WNL - PRN labetalol 10mg as needed, for SBP >180 GI/HEPATOBILIARY No acute concerns - ok for diet, renal. - Last BM = Last Bowel Movement: 05/21/24 (05/22/241999) - Bowel regimen: senna- docusate BID, miralax qd - Stress ulcer ppx: none RENAL/FEN Ckd 4, rapidly declining renal function s/p left renal biopsy and TDC placement on 05/17 with [facility] IR, 05/22 s/p left renal angiogram and possible embolization with IR for active extravasation seen on CTAwith concern for pseudoaneurysm and expanding subcapsular renal hematoma seen on both CT and on abdominal US. PAGE kidney Subacute moderate hyponatremia 129, likely secondary to renal failure and fluid retention. - hyponatremia, mild asx. Continue to monitor b/ likey 2/2 hypervolemia 2/2 renal failure, fluid restriction 1.5L intake - HD planned today for 11am - 05/17 renal bx: vascular changes consistent with malignant hypertension, acute tubular injury. No evidence of glomerulonephritis or an immune complex mediate process. Interstitial fibrosis and tubular atrophy, 15-20%. - c/w LAN SPECIALIST sevelemar, vit D, - maintain serum K>4, P>3, Mg>2 - Renal dosing and medication considerations adjusted for glomerular filtration rate - Daily weights INFECTIOUS DISEASES Febrile overnight, unknown source. Concern intraabdominal given hematoma. Potential for line infection, relatively new TDC with first HD session yesterday -abx: vanc & cefepime - Ua clx pending - bld clx pending - pro cindy initial 0.57, repeat 0.7 - ct ABD/ Pelvis no significant concern for developing infection or worsening hematoma ENDOCRINE Hx hypothyroidism - Blood Glucose Monitoring (BGM) Goal: 140-180 - Glycemic Control: continue to monitor need for sliding scale Most recent: Glucose (Bedside): 78 (05/23/24 1200) Last 24 hours: No data recorded Last 36 hours: No data recorded Last 48 hours: Glucose (Bedside) Av Min: 78 Max: 78 - c/w LAN SPECIALIST levothyroxine 200mcg HEMATOLOGIC Active left renal hemorrhage s/p renal biopsy undergoing IR guided embolization Anemia, mixed picture. Both anemia of chronic disease and acute blood loss anemia. - baseline hgb 13, - 1 u PRBC 9/5 - CBC BID - DVT ppx: SCBs & TEDS and holding chemical AC due to concern of bleed - hep dvt ppx MSK/DERM No acute concerns - PT/OT consulted, appreciate recommendations - Wound care: none L/D/As LINES ALL Duration Dialysis Catheter Double Lumen Right Internal jugular 7 days Peripheral Line Right Wrist 22 Gauge 2 days Peripheral Line Lower;Right 20 Gauge <1 day P.T./O.T./MOBILITY: Consulted GLOBAL ISSUES: Disposition: c/w ICU care Patient's decisional capacity: has capacity to make decisions Communication with Patient/Family: will update this afternoon Patient was seen, was examined, and was discussed with attending physician, MD Cuba Angluo MD ED Resident PGY3 Associated attestation - Yash Rooney MD - 05/25/2024 4:38 PM EDT I saw and evaluated the patient today. I have reviewed the resident/fellow physician note and agree. Overnight spiked temperature (likely explained by retained hematoma in the kidney)-blood culture obtained and started on broad-spectrum antimicrobial therapy. Repeat CTA abdomen pelvis with stable hematoma size. Receiving renal replacement therapy as per Nephrology team. Remained hemodynamically stable. Keep type and screen active and monitor H&H periodically-keep H&H above 7/21. Remainder plan as documented in the resident's note. Disposition: MedSurg status. I spent a total of 35 minutes coordinating, documenting, and providing care for this patient excluding time spent in the performance of separately billed services. * Guero Quiros [facility] - 05/25/2024 4:24 AM EDT PHARMACY PHARMACOKINETIC CONSULT [facility]-[address] [address] Name: Fly De Luna Location: [facility] [id number] Date: 05/25/2024 Time: 4:12 AM Requesting Service: Critical Care Red Bacteria being treated: Empiric Source of infection: Unknown Medication(s) being managed: Vancomycin Pharmacokinetic calculations will be performed without utilizing [employer] software due to meeting exclusion criteria (BLAKE Stage 2 or 3 VENKAT, or receiving renal replacement therapy [iHD, CRRT, PD]). Lab information: Lab Results Component Value Date/Time WBC 11.08 (H) 05/24/2024 07:06 PM WBC 11.51 (H) 05/24/2024 01:24 PM WBC 12.58 (H) 05/24/2024 05:59 AM WBC 13.08 (H) 05/23/2024 05:22 PM WBC 12.17 (H) 05/23/2024 06:44 AM WBC 5.5 04/06/1997 08:12 AM Lab Results Component Value Date/Time BUN 106 (H) 05/24/2024 05:59 AM BUN 100 (H) 05/23/2024 05:22 PM BUN 102 (H) 05/23/2024 06:44 AM BUN 94 (H) 05/22/2024 03:54 PM BUN 90 (H) 05/22/2024 07:58 AM BUN 17 04/06/1997 08:12 AM Lab Results Component Value Date/Time CREAT 11.0 (H) 05/24/2024 05:59 AM CREAT 10.0 (H) 05/23/2024 05:22 PM CREAT 10.0 (H) 05/23/2024 06:44 AM CREAT 9.2 (H) 05/22/2024 03:54 PM CREAT 9.2 (H) 05/22/2024 07:58 AM ANTIMICROBIALS GIVEN (last 28 hours) Date/Time Action Medication Dose Rate 05/25/24 0345 New Bag cefepime in dextrose premix ivpb 2 g 2 g 100 mL/hr Wt Readings from Last 1 Encounters: 05/23/24 107.3 kg (236 lb 8.9 oz) Dosing and levels to date: No results found for: "VANCO", "VANCOPEAK", "VANCORANDOM", "VANCOTROUGH", "GENTPEAK", "GENTRANDOM","GENTTROUGH", "TOBRAPEAK", "TOBRARANDOM", "TOBRATROUGH", "AMIKAPEAK", "AMIKARANDOM", "AMIKATROUGH" Day of Therapy Date Dose Admin Time Level (mcg/mL) Collected Time Notes/Comment 1 05/25 2500 mg x1 Impression: Patient is a 53 year old male with declining renal function ordered cefepime and vancomycin for sepsis. He has potential plan for hemodialysis and nephrology is also following. Plan/Recommendations: Administer 2500 mg IV Vancomycin followed by no maintenance regimen due to renal function. Obtain random level with AM labs on 05/27/24 for further dosing. If level < 20 mcg/ml give a maintenance dose. If patient having hemodialysis administer dose after hemodialysis if possible . Pharmacy will continue to follow and dose as appropriate by renal function, culture results, infectious disease input, and overall clinical status. * Camila Ortiz DO - 05/24/2024 12:51 PM EDT PROGRESS NOTE - Nephrology [facility]-[address] [address] Name: Fly De Luna Location: [facility] [id number] Date: 05/24/2024 Time: 1:08 PM SUBJECTIVE: 53 year old male with PMHx of CKD Stage IV, HTN, Hypothyroidism, HLD and Depression. Follows with Dr. Rose in OP setting. Was recently admitted for PNA and HTN urgency at [facility]. During that hospitalization his renal function continued to decline. A renal US revealed Right-10.6 cm and Left-10.5 cm kidneys, No focal lesions, hydronephrosis or calculus. ANCA panel was negative. A renalbiopsy was performed on 05/17/2024 revealing vascular changes consistent with malignant hypertension, acute tubular injury. No evidence of glomerulonephritis or an immune complex mediate process. An RIJ TDC was placed at the same time. CT abd/pelvis on admission revealed 10.5 cm subcapsular hematomaof the left kidney. His Hgb dropped 2g over a few day period prompting evaluation via CTA after discussion with IR. Active extravasation was seen in the renal pelvis prompting IR arterial embolization on 05/22/2024. The patient was transferred to the ICU for close hemodynamic monitoring. Today has completed his first session of HD with 500cc UF. No issues with treatment. Patient overall feels better. CURRENT HOSPITAL MEDICATIONS: Reviewed OBJECTIVE: Most Recent Vital Signs: BP: 144 mmHg/87 mmHg (05/24/24 1200) Pulse: 84 (05/24/24 1200) Resp: 28 (05/24/24 1200) Temp: 37.11 C (05/24/24 1020) Temp Summary: Temp Min: 36.9 C (98.4 F) Max: 37.5 C (99.5 F) SpO2: 92 % (05/24/241199) O2 flow rate: 2 L/MIN (05/24/24 09) Supplemental O2 Delivery: Room Air, None (05/24/241199) Vital Signs last 24 Hours: Systolic BP: Most Recent Systolic BP Av.3 mmHg Min: 117 mmHg Max: 176 mmHg Temperature: Most Recent Temperature Av.2 C Min: 36.89 C Max: 37.5 C Pulse: Pulse Av.1 Min: 70 Max: 91 Respirations: Resp Av.8 Min: 10 Max: 36 SpO2: SpO2 Av.6 % Min: 87 % Max: 100 % General: In no acute distress, seen in dialysis unit Neuro: AOx3, no focal deficits appreciated, following commands, answers questions appropriately HEENT: Normocephalic and atraumatic, pupils are equal, round and reactive to light, moist mucous membranes CV: Regular rate and rhythm; no murmurs, no JVD, perfusing well, 2+ peripheral pulses Resp: normal respiratory effort, lungs clear to auscultation B/L, no wheeze, no crackles GI: bowel sounds present, abdomen is soft, non tender, non distended, no masses on palpation MSK: ROM in tact, 5/5 B/L strength in extremities, no peripheral edema, RIJ TDC in use Skin: warm, dry and intact Psych: normal mood and affect Laboratory Values: reviewed. -- Brief labs below include the 7 most recent results over the past week. Blood Gas: No results in the last 7 days - inpatent use only Chemistry Panel: Lab results within last 7 days (see chart for full results) Units 05/24/24 0559 05/23/24 17205/23/24 0644 05/22/24 1554 05/22/24 0758 05/22/24 0003 Sodium mmol/L 130* 130* 129* 130* 133* 134* Potassium mmol/L 4.4 4.4 4.2 4.5 4.5 4.3 Chloride mmol/L 93* 92* 93* 95* 98 98 CO2 mmol/L 19* 20* 20* 19* 20* 18* BUN mg/dL 106* 100* 102* 94* 90* 90* Creatinine mg/dL 11.0* 10.0* 10.0* 9.2* 9.2* 8.7* Estimated Glomerular Filtration Rate mL/min 5* 6* 6* 6* 6* 7* Glucose mg/dL 102 97 115 142* 141* 142* Calcium mg/dL 8.7 8.7 8.9 8.7 8.9 8.8 Magnesium mg/dL 3.1* -- 3.0* 3.0* -- 3.0* Phosphorus mg/dL 9.2* -- 9.1* 8.5* -- 6.5* Anion Gap mmol/L 18* 18* 16* 16* 15 18* Complete Blood Count: Lab results within last 7 days (see chart for full results) Units 05/24/24 0559 05/23/24 1722 05/23/24 0644 05/22/24211805/22/24 1554 05/22/24 0758 05/22/24 0003 WBC K/uL 12.58* 13.08* 12.17* 11.63* 14.89* 10.04 12.04* HGB g/dL 7.2* 8.0* 7.9* 8.3* 9.3* 10.4* 10.8* HCT % 22.1* 24.6* 24.6* 26.7* 28.6* 33.9* 33.8* PLT K/uL 183 221 210 210 217 188 174 MCV fL 94.8 96.1 95.7 96.7 95.0 96.3 94.9 Cardiac Studies: No results in the last 7 days - inpatent use only Coagulation Studies: No results in the last 7 days - inpatent use only Liver Function Panel: Lab results within last 7 days (see chart for full results) Units 05/22/24 0003 Albumin g/dL 3.8 Protein g/dL 6.5 Bilirubin, Total mg/dL 1.5* Bilirubin, Direct mg/dL 0.3 AST U/L 63* ALT U/L 32 Alkaline Phosphatase U/L 46 Infectious Studies: Lab results within last 7 days (see chart for full results) Units 05/22/24 0157 Lactate mmol/L 1.1 Cultures: reviewed. No results in the last 7 days - inpatent use only Recent Cultures (2 Weeks) 05/22/2024 2:11 AM QUANT URINE CULTURE GROWTH No significant growth Radiographic Studies (last 72 hours): reviewed. CTA ABD/PELVIS Result Date: 05/22/[address] abdomen/pelvis obtained earlier on 05/22/2024: Increased size of the large left perirenal hematoma with active hemorrhage into the left retroperitoneum from a probable smallpseudoaneurysm. Pulmonary edema in the lung bases and small bilateral pleural effusions. Critical Result: The information above was relayed directly by in via secure [employer] messaging to CAMILA ORTIZ on 05/22/2024 at 12:32 pm who expressed understanding. US ABDOMEN COMPLETE Result Date: 05/22/2024 IMPRESSION: There is a 10 cm subcapsular hematoma of the left kidney. No evidence for active hemorrhage on provided color Doppler images. THIS DOCUMENT HAS BEEN ELECTRONICALLY SIGNED BY CORNELIO HARMON MD CT ABD/PELVIS WO IV/ORAL CONTRAST Result Date: 05/22/2024 IMPRESSION: 1. 10.5 cm subcapsular hematoma of the left kidney. 2. There are bibasilar parenchymal consolidations which have a somewhat ground-glass appearance and correlation for viral or bacterial pneumonitis is suggested. THIS DOCUMENT HAS BEEN ELECTRONICALLY SIGNED BY CORNELIO HARMON MD IMPRESSION: This is a 53 year old male admitted 05/22/2024 for new subcapsular hematoma after renal biopsy at OSH with CTA evidence of active extravasation now s/p IR embolization. Hypertension and elevated blood pressure 2/2 to PAGE kidney resulting in increased RAAS system activation. Hyponatremia is likely due to reduced PO intake and volume retention with poor solute clearance. Suspicion remains obstructive 2/2 compressive hematoma. He remains oliguric today. Will proceed with first session of HD, goal UF 500. Fluid and Electrolyte Diagnoses: hyponatremia, hyperphosphatemia, hypermagnesemia and metabolic acidosis Kidney Associated Disorders: secondary hyperparathyroidism PAGE kidney Severe VENKAT on CKD3 PLAN: - Continue careful blood pressure management, goal SBP 150-160 - Daily assessment for HD, will need OP HD referrals - Strict monitoring of I/Os - Avoid nephrotoxic medications - Renally dose medications - Continue on renal diet Camila Ortiz, DO Internal Medicine, PGY-2 Associated attestation - Marely Saldaña MD - 05/24/2024 6:51 PM EDT I saw and evaluated the patient today. I have reviewed the resident/fellow physician note and agree. Patient seen during hemodialysis in the dialysis unit, seems to be tolerating procedure well. Urine output has been low. 500 mL of UF removed. Hemoglobin downtrending, suggest repeat CT scan of abdomen /pelvis to assess the size of perinephric hematoma. Next HD session will be tomorrow. * Cuba Gómez MD - 05/24/2024 7:27 AM EDT CRITICAL CARE MEDICINE - PROGRESS NOTE [facility] [place]-[address] [address] Name: Fly De Luna Location: [facility] [id number] Date: 05/24/2024 Time: 7:27 AM Date of Admission: 05/22/2024 Hospital Day: 2 PATIENT DESCRIPTION: 53 yomale with PMH of HTN, hypothyroidism, HLD, CKD 4, recent L renal biopsy 05/19 who presented to [facility] for severe left flank pain, transferred to [facility], found to have a left perirenal hematoma with active hemorrhage into retroperitoneum from likely pseudoaneurysm. HPI/EVENTS OF NOTE: 05/22- ad'd to [facility] under medicine service. CTA = L perirenal hematoma with active hemorrhage into retroperitoneum from likely pseudoaneurysm.Pt taken for emergent renal arteriography with coil and embolization of inferior pole arcuate branch. ad'd to ICU post procedure. OVN BENNETT ovn. HD planned this am. Pt tolerating diet well. Nervious for dialysis, but overall no concerns. Sitting up in bed. Hgb 7.2 this am, 8.0 yesterday afternoon. Started ppx hep at 6pm, but overall pt without s/s of anemia. Denies cp, sob, or dizziness Afebrile. SBP 150's. HR 70-80 RR mid to high 20's required 2L o2 ovn and into this morning after desat to 987%. UOP 300 cc/12hr (0.2cc/kg/hr) CONSTITUTIONAL DATA: Blood Pressure: 163/103 mmHg Last 12H: Most Recent Systolic BP Av.8 mmHg Min: 117 mmHg Max: 163 mmHg Pulse: 79 Last 12H: Pulse Av.2 Min: 72 Max: 91 Temperature: 37.4 C (99.3 F) Last 12H: Most Recent Temperature Av.3 C Min: 37.06 C Max: 37.5 C Respiratory Rate: 26 O2 Saturation: 98 % Intake/Output Summary (Last 24 hours) at 05/24/2024726 Last data filed at 05/24/2024 0400 Gross per 24 hour Intake -- Output 850 ml Net -850 ml Net Since Admission: Physical Examination General appearance: alert and oriented, sitting up at edge of bed wearing NC O2 this am. Nervous but overall In no acute distress. HEENT: opens eyes spontaneously. EOMI. Pupils equal and reactive b/l. AT/NC CV: regular rate and rhythm Pulm: lungs with mild rhonchi. Inc RR. Overall no significant inc work of breathing, but pt is sitting up on edge of bed and wearing NC O2 GI: tenderness to palpation of left abdomen and left flank. No evidence of busing, abdomen soft, non distended, not rigid MSK:moves all 4 extremities. Right groin access, dressing c/d/I, soft Neuro: sleepy but awakens easily to voice and is alert and oriented Skin: no rashes or significant busing.warm and dry UOP = Urine Output Urine Output Source: Urinal (05/24/24399) Voiding: Small (05/22/24 1100) Urine Output (ml) (Excludes Catheters): 200 ml (05/24/24399) Last BM = Last Bowel Movement: 05/21/24 (05/22/241999) Laboratory Values: Lab results within last 7 days (see chart for full results) Units 05/22/24 0157 Lactate mmol/L 1.1 Lab results within last 7 days (see chart for full results) Units 05/24/24 0559 05/23/24 1722 05/23/24 0644 05/22/24 0758 05/22/24 0003 HGB g/dL 7.2* 8.0* 7.9* < > 10.8* HCT % 22.1* 24.6* 24.6* < > 33.8* WBC K/uL 12.58* 13.08* 12.17* < > 12.04* PLT K/uL 183 221 210 < > 174 Neutrophils % % -- -- -- -- 87.3* Monocytes % % -- -- -- -- 6.2 Eosinophils % % -- -- -- -- 1.5 < > = values in this interval not displayed. Lab results within last 7 days (see chart for full results) Units 05/24/24 0559 05/23/24 17205/23/24 0644 Sodium mmol/L 130* 130* 129* Potassium mmol/L 4.4 4.4 4.2 Chloride mmol/L 93* 92* 93* CO2 mmol/L 19* 20* 20* BUN mg/dL 106* 100* 102* Creatinine mg/dL 11.0* 10.0* 10.0* Lab results within last 7 days (see chart for full results) Units 05/22/24 0003 Protein g/dL 6.5 Bilirubin, Total mg/dL 1.5* Alkaline Phosphatase U/L 46 AST U/L 63* ALT U/L 32 Microbiology: Radiographic & Other Studies: CTA ABD/PELVIS Result Date: 05/22/[address] abdomen/pelvis obtained earlier on 05/22/2024: Increased size of the large left perirenal hematoma with active hemorrhage into the left retroperitoneum from a probable smallpseudoaneurysm. Pulmonary edema in the lung bases and small bilateral pleural effusions. Critical Result: The information above was relayed directly by me via secure [employer] connect messaging to CAMILA ORTIZ on 05/22/2024 at 12:32 pm who expressed understanding. US ABDOMEN COMPLETE Result Date: 05/22/2024 IMPRESSION: There is a 10 cm subcapsular hematoma of the left kidney. No evidence for active hemorrhage on provided color Doppler images. THIS DOCUMENT HAS BEEN ELECTRONICALLY SIGNED BY CORNELIO HARMON MD CT ABD/PELVIS WO IV/ORAL CONTRAST Result Date: 05/22/2024 IMPRESSION: 1. 10.5 cm subcapsular hematoma of the left kidney. 2. There are bibasilar parenchymal consolidations which have a somewhat ground-glass appearance and correlation for viral or bacterial pneumonitis is suggested. THIS DOCUMENT HAS BEEN ELECTRONICALLY SIGNED BY CORNELIO HARMON MD Current Facility-Administered Medications Medication Dose Route Frequency Provider amLODIPine (Norvasc) tab 2.5 mg 2.5 mg Oral BID(AM/PM) Cuba Gómez MD Carvedilol (Coreg) tab 18.75 mg 18.75 mg Oral BID (AM/PM meals) Cuba Gómez MD hEParin inj 5,000 Units 5,000 Units Subcutaneous Q8H Ksenia Lea DO oxyCODONE (Oxy IR) tab 5 mg 5 mg Oral Q6H PRN Cuba Gómez MD oxyCODONE (Roxicodone) oral syrup 2.5 mg 2.5 mg Oral Q4H PRN Cuba Gómez MD senna-docusate (Senokot-S) 1 Tablet 1 Tablet Oral Daily(AM) Cuba Gómez MD Simethicone (Mylicon) chew tab 80 mg 80 mg Oral Q6H PRN Trevor Rojas DO sodium citrate 4% (Anticoagulant Sodium Citrate) inj 3 mL 3 mL Dialysis catheter On dialysis Kamilla Ortega CRNP Acetaminophen (Tylenol) tab 650 mg 650 mg Oral Q6H Eloise Schofield MD chlorHEXIDINE (Periogard) 0.12 % oral rinse 15 mL 15 mL Oral mucosal membrane BID (0800,1999) Cuba Gómez MD cholecalciferol (VIT D3) (Vitamin D3) tab 1,000 Units 1,000 Units Oral Daily(AM) Vikas Agosto MD HYDROmorphone (Dilaudid) inj 0.5 mg 0.5 mg IV Push Q4H PRN Vikas Agosto MD labetalol (Trandate) inj 10 mg 10 mg Intravenous Q1H PRN Eloise Schofield MD levothyroxine (Levoxyl) tab 200 mcg 200 mcg Oral Daily 0630 Vikas Agosto MD Oral Hygiene: Mouth Swab with dentifrice Oral Q4H Limited (00;04;12;16) Cuba Gómez MD Sevelamer Carbonate (Renvela) tab 800 mg 800 mg Oral With meals Vikas Agosto MD sodium chloride 0.9 % flush peripheral jordan 3 mL 3 mL IV Push Q8H Cuba Gómez MD sodium chloride 0.9 % flush/inj 3 mL 3 mL IV Push PRN Viaks Agosto MD CRITICAL CARE SYSTEM REVIEW & ASSESSMENT/PLAN: Active Problems: Renal hematoma, left (POA: Unknown) ESRD (end stage renal disease) (HCC) (POA: Unknown) Abdominal pain (POA: Unknown) Page kidney (POA: Unknown) VENKAT (acute kidney injury) (HCC) (POA: Unknown) Stage 3 chronic kidney disease (HCC) (POA: Unknown) Hyperphosphatemia (POA: Unknown) Anemia due to stage 3 chronic kidney disease (HCC) (POA: Unknown) Acute blood loss anemia (POA: Unknown) Resolved Problems: * No resolved hospital problems. * POA = Present On Admission left renal active hemorrhage into subcapsular space after renal biopsy on 05/19. S/p coil and embolization with IR on 05/22. Pain improving. Hypertensive emergency, likely 2/2 to renal compression and activation of RAAS given renal hematoma, back on home coreg & half dose home amlodipine. Will increase amlodipine to home dose (5mg BID) if remains hypertensive after dialysis +/- in coreg to 25mg BID if needed VENKAT on CKD, 2/2 chronic hypertension, PAGE kidney- UOP decreased overnight 300cc/12hr. Pt also withmore s/s of fluid overload this morning. Undergoing first session of iHD this am Acute blood loss anemia. Hgb leveled off yesterday pm. Dropped again this am to 7.2. dvt ppx with heparin was started this morning. Pt is not reporting any sx at this time and has not had any tachycardia or hypotension. Will repeat cbc in afternoon after dialysis and will monitor for s/s of anemia Chronic conditions: NEURO No acute concerns, tired but arousable alert and oriented post procedure Analgesia - Tylenol 650mg PRN pain or fever - Oxy IR 2.5mg po q6 mod pain - oxy IR 5mg po q6h severe pain - dilaudid 0.5mg IVP breakthrough pain PRN q4 - Current Pain Score: 0 (no pain) (05/24/24 0700) RESP No acute concerns. Recent PNA. CT abd/ pelvis showing trace b/l pleural effusions. CXR showing b/l basilar opacities unchanged, given unchanged favors chronic vs acute changes. - on 2L NC this am with tachypnea in mid to high 20's for RR, likely pulmonary congestion from CKD,reassess after dialysis. CV Hypertensive emergency in setting of active renal bleeding. Hx of hypertension, on 05/22 received 10mg hydralazine 8am, 2pm. & nitro 100mcg at 1301 for blood pressure control Hemorrhage, monitor for s/s of hemorrhagic shock HFpEF - restart home coreg dose, add half of home amlodipine dose 2.5mg BID - TTE 03/30/24- LVEF 65-70%, LV ventricular hypertrophy, grade II diastolic dysfunction - lactic acid WNL - PRN labetalol 10mg as needed, for SBP >180 - monitor blood pressure after dialysis and determine need to increase amlodipine to home dose of 5mg BID GI/HEPATOBILIARY No acute concerns - ok for diet, renal. - Last BM = Last Bowel Movement: 05/21/24 (05/22/241999) - Bowel regimen: senna- docusate - Stress ulcer ppx: none RENAL/FEN Ckd 4, rapidly declining renal function s/p left renal biopsy and TDC placement on 05/17 with [facility] IR, not currently on dialysis. 05/22 s/p left renal angiogram and possible embolization with IR for active extravasation seen on CTAwith concern for pseudoaneurysm and expanding subcapsular renal hematoma seen on both CT and on abdominal US. PAGE kidney Subacute moderate hyponatremia 129 this am, likely secondary to renal failure and fluid retention. - HD planned for this am - Had some urine production with lasix challenge yesterday - No hematoma drainage with IR planned. - 05/17 renal bx: vascular changes consistent with malignant hypertension, acute tubular injury. No evidence of glomerulonephritis or an immune complex mediate process. Interstitial fibrosis and tubular atrophy, 15-20%. - c/w LAN SPECIALIST sevelemar, vit D, - freed removed 05/23 - maintain serum K>4, P>3, Mg>2 - Renal dosing and medication considerations adjusted for glomerular filtration rate - Daily weights INFECTIOUS DISEASES No acute concerns - UA pending - monitor for leukocytosis & fever ENDOCRINE Hx hypothyroidism - Blood Glucose Monitoring (BGM) Goal: 140-180 - Glycemic Control: continue to monitor need for sliding scale Most recent: Glucose (Bedside): 78 (05/23/24 1200) Last 24 hours: Glucose (Bedside) Av Min: 78 Max: 78 Last 36 hours: Glucose (Bedside) Av Min: 78 Max: 78 Last 48 hours: Glucose (Bedside) Av Min: 78 Max: 78 - c/w LAN SPECIALIST levothyroxine 200mcg HEMATOLOGIC Active left renal hemorrhage s/p renal biopsy undergoing IR guided embolization - baseline hgb 13, - hgb 7.2 (7.9) this am, rpt CBC in afternoon to determine need for transfusion,monitor for s/s of anemia. - DVT ppx: SCBs & TEDS and holding chemical AC due to concern of bleed - will give chemical dvt ppx once cleared by IR and nephro for no up coming procedure. MSK/DERM No acute concerns - PT/OT consulted, appreciate recommendations - Wound care: none L/D/As LINES ALL Duration Dialysis Catheter Double Lumen Right Internal jugular 6 days Peripheral Line Left Hand 20 Gauge 2 days Peripheral Line Right Wrist 22 Gauge 1 day P.T./O.T./MOBILITY: Consulted GLOBAL ISSUES: Disposition: c/w ICU care Patient's decisional capacity: has capacity to make decisions Communication with Patient/Family: will update this afternoon Patient was seen, was examined, and was discussed with attending physician, MD Cuba Angulo MD ED Resident PGY3 Associated attestation - Yash Rooney MD - 05/24/2024 2:23 PM EDT I saw and evaluated the patient today. I have reviewed the resident/fellow physician note and agree. No major events overnight. Worsening kidney function with BUN 106 creatinine 11 with urine output decreasing-underwent hemodialysis session as per Nephrology this morning. Slowly downtrending hemoglobin now below 7 received 1 PRBC transfusion. No signs of active hemorrhage at this time. If clinical decompensation consider repeat abdominal imaging. Keep type and screen active. Blood pressure control with SBP between 150-160, continue LAN SPECIALIST Coreg/amlodipine. Case discussed with Nephrology attendingat bedside during morning rounds. Disposition: MedSur status. Remainder plan as per resident's note. I spent a total of 35 minutes coordinating, documenting, and providing care for this patient excluding time spent in the performance of separately billed services. * Camila Ortiz, - 05/23/2024 8:11 AM EDT PROGRESS NOTE - Nephrology [facility] [place]-[address] [address] Name: Fly De Luna Location: [facility] [id number] Date: 05/23/2024 Time: 11:29 AM SUBJECTIVE: 53 year old male on hospital day #2 with PMHx of CKD Stage IV, HTN, Hypothyroidism, HLDand Depression. Follows with Dr. Rose in OP setting. Was recently admitted for PNA and HTN urgency at [facility]. During that hospitalization his renal function continued to decline. A renal US revealedRight-10.6 cm and Left-10.5 cm kidneys, No focal lesions, hydronephrosis or calculus. ANCA panel was negative. A renal biopsy was performed on 05/17/2024 revealing vascular changes consistent with malignant hypertension, acute tubular injury. No evidence of glomerulonephritis or an immune complex mediate process. An RIJ TDC was placed at the same time. CT abd/pelvis on admission revealed 10.5 cm will bcapsular hematoma of the left kidney. His Hgb dropped 2g over a few day period prompting evaluation via CTA after discussion with IR. Active extravasation was seen in the renal pelvis prompting IR arterial embolization on 05/22/2024. The patient was transferred to the ICU for close hemodynamic monitoring. Today on exam the patient endorses mild abdominal pain much improved from day prior. Is tolerating his diet well. Not making much urine. CURRENT HOSPITAL MEDICATIONS: Reviewed OBJECTIVE: Most Recent Vital Signs: BP: 149 mmHg/95 mmHg (05/23/24 1100) Pulse: 75 (05/23/24 1100) Resp: 26 (05/23/24 1100) Temp: 36.89 C (05/23/24 1000) Temp Summary: Temp Min: 35.6 C (96.1 F) Max: 37.1 C (98.8 F) SpO2: 95 % (05/23/24 1100) O2 flow rate: 4 L/MIN (05/22/24 1800) Supplemental O2 Delivery: Room Air, None (05/23/24 1100) Vital Signs last 24 Hours: Systolic BP: Most Recent Systolic BP Av.2 mmHg Min: 121 mmHg Max: 213 mmHg Temperature: Most Recent Temperature Av.4 C Min: 35.61 C Max: 37.11 C Pulse: Pulse Av.2 Min: 66 Max: 89 Respirations: Resp Av.5 Min: 10 Max: 34 SpO2: SpO2 Av.6 % Min: 91 % Max: 100 % General: In no acute distress Neuro: AOx3, no focal deficits appreciated, following commands, answers questions appropriately HEENT: Normocephalic and atraumatic, pupils are equal, round and reactive to light, moist mucous membranes CV: Regular rate and rhythm; no murmurs Resp: normal respiratory effort, lungs clear to auscultation B/L, no wheeze, no crackles GI: bowel sounds present, abdomen is soft, tender, non distended, no masses on palpation MSK: ROM in tact, 5/5 B/L strength in extremities, trace peripheral edema Skin: warm, dry and intact Psych: normal mood and affect Laboratory Values: reviewed. -- Brief labs below include the 7 most recent results over the past week. Blood Gas: No results in the last 7 days - inpatent use only Chemistry Panel: Lab results within last 7 days (see chart for full results) Units 05/23/24 0644 05/22/24 1554 05/22/24 0758 05/22/24 0003 Sodium mmol/L 129* 130* 133* 134* Potassium mmol/L 4.2 4.5 4.5 4.3 Chloride mmol/L 93* 95* 98 98 CO2 mmol/L 20* 19* 20* 18* BUN mg/dL 102* 94* 90* 90* Creatinine mg/dL 10.0* 9.2* 9.2* 8.7* Estimated Glomerular Filtration Rate mL/min 6* 6* 6* 7* Glucose mg/dL 115 142* 141* 142* Calcium mg/dL 8.9 8.7 8.9 8.8 Magnesium mg/dL 3.0* 3.0* -- 3.0* Phosphorus mg/dL 9.1* 8.5* -- 6.5* Anion Gap mmol/L 16* 16* 15 18* Complete Blood Count: Lab results within last 7 days (see chart for full results) Units 05/23/24 0644 05/22/24 2119 05/22/24 1554 05/22/24 0758 05/22/24 0003 WBC K/uL 12.17* 11.63* 14.89* 10.04 12.04* HGB g/dL 7.9* 8.3* 9.3* 10.4* 10.8* HCT % 24.6* 26.7* 28.6* 33.9* 33.8* PLT K/uL 210 210 217 188 174 MCV fL 95.7 96.7 95.0 96.3 94.9 Cardiac Studies: No results in the last 7 days - inpatent use only Coagulation Studies: No results in the last 7 days - inpatent use only Liver Function Panel: Lab results within last 7 days (see chart for full results) Units 05/22/24 0003 Albumin g/dL 3.8 Protein g/dL 6.5 Bilirubin, Total mg/dL 1.5* Bilirubin, Direct mg/dL 0.3 AST U/L 63* ALT U/L 32 Alkaline Phosphatase U/L 46 Infectious Studies: Lab results within last 7 days (see chart for full results) Units 05/22/24 0157 Lactate mmol/L 1.1 Cultures: reviewed. No results in the last 7 days - inpatent use only Recent Cultures (2 Weeks) 05/22/2024 2:11 AM QUANT URINE CULTURE GROWTH No significant growth Radiographic Studies (last 72 hours): reviewed. CTA ABD/PELVIS Result Date: 05/22/[address] abdomen/pelvis obtained earlier on 05/22/2024: Increased size of the large left perirenal hematoma with active hemorrhage into the left retroperitoneum from a probable smallpseudoaneurysm. Pulmonary edema in the lung bases and small bilateral pleural effusions. Critical Result: The information above was relayed directly by me via secure [place] connect messaging to CAMILA ORTIZ on 05/22/2024 at 12:32 pm who expressed understanding. US ABDOMEN COMPLETE Result Date: 05/22/2024 IMPRESSION: There is a 10 cm subcapsular hematoma of the left kidney. No evidence for active hemorrhage on provided color Doppler images. THIS DOCUMENT HAS BEEN ELECTRONICALLY SIGNED BY CORNELIO HARMON MD CT ABD/PELVIS WO IV/ORAL CONTRAST Result Date: 05/22/2024 IMPRESSION: 1. 10.5 cm subcapsular hematoma of the left kidney. 2. There are bibasilar parenchymal consolidations which have a somewhat ground-glass appearance and correlation for viral or bacterial pneumonitis is suggested. THIS DOCUMENT HAS BEEN ELECTRONICALLY SIGNED BY CORNELIO HARMON MD IMPRESSION: This is a 53 year old male admitted 05/22/2024 for new subcapsular hematoma after renal biopsy at OSH with CTA evidence of active extravasation. Likely PAGE kidney causing increased RAAS system activation causing elevated blood pressures. His BP is well controlled today after resuming hisPTA Coreg. His Hyponatremia is likely due to reduced PO intake and volume retention. His renal dysfunction is currently stable. Suspicion remains obstructive due to compression of the enlarging hematoma. He is producing urine indicating some degree of renal recovery. There remains no acute indication for renal replacement therapies at this time. Fluid and Electrolyte Diagnoses: hyponatremia, hyperphosphatemia, hypermagnesemia and metabolic acidosis Kidney Associated Disorders: secondary hyperparathyroidism PAGE kidney Severe VENKAT on CKD3 PLAN: - Continue careful blood pressure management, okay to resume LAN SPECIALIST Norvasc - If no plan for percutaneous drainage of hematoma collection with IR and BP remains well controlled, patient appears stable for floors - Daily assessment for RESEARCH MICROBIOLOGIST needs - Agree with Lasix for improving volume status as the patient is producing urine - Strict monitoring of I/Os - Avoid nephrotoxic medications - Renally dose medications - Continue on renal diet Camila Ortiz, Internal Medicine, PGY-2 Associated attestation - Marely Saldaña MD - 05/23/2024 3:47 PM EDT I saw and evaluated the patient today. I have reviewed the resident/fellow physician note and agree. Patient seen and examined in ICU, remains hemodynamically stable. Pain much better. Seems to tolerate oral diet. Urine output has been around 700 mL. Solute clearance remains poor. Discussed with his insights analyst Dr. Rose, agreeable for initiating dialysis. Discussed with IR regarding any role of draining perinephric hematoma, no such plans for now. We will continue to labeled him as VENKAT D on CKD 3. Initiate dialysis for session tomorrow, he has a right-sided TDC. * Michael Heath MD - 05/23/2024 7:55 AM EDT PROGRESS NOTE - Urology [facility] [id number] Name: Fly De Luna Location: [facility] A546/[id number] Date: 05/23/2024 Time: 7:58 AM SUBJECTIVE: Patient much more comfortable this morning, denies any left flank pain. He is now status post coil and Gelfoam embolization of renal artery branches. Transferred to ICU after procedure. Hypertension improving. PHYSICAL EXAMINATION: Most Recent Vital Signs: BP: 156 mmHg/95 mmHg (05/23/24699) Pulse: 85 (05/23/24 07) Resp: 14 (05/23/24699) Temp: 37 C (05/23/24599) Temp Summary: Temp Min: 35.6 C (96.1 F) Max: 37 C (98.6 F) SpO2: 97 % (05/23/24699) O2 flow rate: 4 L/MIN (05/22/24 1800) Supplemental O2 Delivery: Room Air, None (05/23/24699) Vital Signs Last 24 Hours: Systolic BP: Most Recent Systolic BP Av.5 mmHg Min: 121 mmHg Max: 213 mmHg Temperature: Most Recent Temperature Av.3 C Min: 35.61 C Max: 37 C Pulse: Pulse Av.8 Min: 65 Max: 89 Respirations: Resp Av.4 Min: 10 Max: 34 SpO2: SpO2 Av.7 % Min: 91 % Max: 100 % Intake/Output Summary (Last 24 hours) at 05/23/2024757 Last data filed at 05/23/2024 07 Gross per 24 hour Intake 720.1 ml Output 1125 ml Net -404.9 ml General: no acute distress, alert HEENT: normocephalic, atraumatic Neck: trachea midline Cardiovascular: normal rate, systolics 160s Respiratory: non-labored breathing on room air Abdomen: soft, non-tender, non-distended, no masses Skin: no obvious lesions Neurologic: no gross focal deficits Extremities: no deformities, no edema : freed in place draining clear yellow urine, no left flank tenderness, no palpable hematoma or ecchymosis CURRENT HOSPITAL MEDICATIONS: Note that completed medications (per the MAR) continue to display for 24 hours. Ordered medicationsto be given in the future also display. Current Facility-Administered Medications Medication Dose Route Frequency Provider Simethicone (Mylicon) chew tab 80 mg 80 mg Oral Q6H PRN Trevor Rojas DO Acetaminophen (Tylenol) tab 650 mg 650 mg Oral Q6H Eloise Schofield MD Carvedilol (Coreg) tab 12.5 mg 12.5 mg Oral BID (AM/PM meals) Cuba Gómez MD chlorHEXIDINE (Periogard) 0.12 % oral rinse 15 mL 15 mL Oral mucosal membrane BID (799,1999) Cuba Gómez MD cholecalciferol (VIT D3) (Vitamin D3) tab 1,000 Units 1,000 Units Oral Daily(AM) Vikas Agosto MD HYDROmorphone (Dilaudid) inj 0.5 mg 0.5 mg IV Push Q4H PRN Vikas Agosto MD labetalol (Trandate) inj 10 mg 10 mg Intravenous Q1H PRN Eloise Schofield MD levothyroxine (Levoxyl) tab 200 mcg 200 mcg Oral Daily 0630 Vikas Agosto MD Oral Hygiene: Mouth Swab with dentifrice Oral Q4H Limited (00;04;12;16) Cuba Gómez MD oxyCODONE (Oxy IR) tab 5 mg 5 mg Oral Q6H PRN Eloise Schofield MD Sevelamer Carbonate (Renvela) tab 800 mg 800 mg Oral With meals Vikas Agosto MD sodium chloride 0.9 % flush peripheral jordan 3 mL 3 mL IV Push Q8H Cuba Gómez MD sodium chloride 0.9 % flush/inj 3 mL 3 mL IV Push PRN Vikas Agosto MD LABS: CHEMISTRY: BUN, Creatinine, GFR Estimated, Sodium, Potassium, Chloride, Carbon Dioxide, Glucose, Calcium (see below for most recent value): Lab Results Component Value Date/Time BUN 102 (H) 05/23/2024 06:44 AM BUN 17 04/06/1997 08:12 AM CREAT 10.0 (H) 05/23/2024 06:44 AM NA 129 (L) 05/23/2024 06:44 AM POTASSIUM 4.2 05/23/2024 06:44 AM POTASSIUM 4.4 04/06/1997 08:12 AM CL 93 (L) 05/23/2024 06:44 AM CO2 20 (L) 05/23/2024 06:44 AM CA 8.9 05/23/2024 06:44 AM BLOOD COUNT: WBC, Hgb, Platelets (see below for most recent value): Lab Results Component Value Date/Time WBC 12.17 (H) 05/23/2024 06:44 AM WBC 5.5 04/06/1997 08:12 AM HGB 7.9 (L) 05/23/2024 06:44 AM HGB 16.6 04/06/1997 08:12 AM PLT 210 05/23/2024 06:44 AM PLT 218 04/06/1997 08:12 AM CULTURES: No results found for: "CULTURE" IMAGING: CTA ABD/PELVIS Result Date: 05/22/[address] abdomen/pelvis obtained earlier on 05/22/2024: Increased size of the large left perirenal hematoma with active hemorrhage into the left retroperitoneum from a probable smallpseudoaneurysm. Pulmonary edema in the lung bases and small bilateral pleural effusions. Critical Result: The information above was relayed directly by me via secure [employer] connect messaging to ENID CAMILA on 05/22/2024 at 12:32 pm who expressed understanding. US ABDOMEN COMPLETE Result Date: 05/22/2024 IMPRESSION: There is a 10 cm subcapsular hematoma of the left kidney. No evidence for active hemorrhage on provided color Doppler images. THIS DOCUMENT HAS BEEN ELECTRONICALLY SIGNED BY CORNELIO HARMON MD CT ABD/PELVIS WO IV/ORAL CONTRAST Result Date: 05/22/2024 IMPRESSION: 1. 10.5 cm subcapsular hematoma of the left kidney. 2. There are bibasilar parenchymal consolidations which have a somewhat ground-glass appearance and correlation for viral or bacterial pneumonitis is suggested. THIS DOCUMENT HAS BEEN ELECTRONICALLY SIGNED BY CORNELIO HARMON MD ASSESSMENT: 53 year old male with acute on chronic renal failure seen in consultation for post-renal biopsy subcapsular renal hematoma. He is now status post coil and Gelfoam embolization with Interventional Radiology. Hemoglobin continues to downtrend slowly, hypertension improving with systolics 160s. PLAN: - no acute urologic intervention as of now - Freed per primary team - continue to follow hemoglobin closely, transfuse as needed - Nephrology for management and coordination of dialysis - Urology will continue to follow peripherally - rest of care per primary team Patient examined, to be discussed with Dr. Heath. Aamir Christensen MD 05/23/2024 7:58 AM Attending addendum I have discussed the patient's management with the medical trainee and agree with the note. Please refer to the documented findings and plan of care. The patient's service consisted of an evaluation.I have seen and evaluated the patient. Michael Heath MD 05/23/2024 4:34 PM * Cuba Gómez MD - 05/23/2024 6:52 AM EDT CRITICAL CARE MEDICINE - PROGRESS NOTE [facility]-[address] [address] Name: Fly De Luna Location: [facility] [id number] Date: 05/23/2024 Time: 7:08 AM Date of Admission: 05/22/2024 Hospital Day: 1 PATIENT DESCRIPTION: 53 yomale with PMH of HTN, hypothyroidism, HLD, CKD 4, recent L renal biopsy 05/19 who presented to [facility] for severe left flank pain, transferred to [facility], found to have a left perirenal hematoma with active hemorrhage into retroperitoneum from likely pseudoaneurysm. HPI/EVENTS OF NOTE: 05/22- ad'd to [facility] under medicine service. CTA = L perirenal hematoma with active hemorrhage into retroperitoneum from likely pseudoaneurysm.Pt taken for emergent renal arteriography with coil and embolization of inferior pole arcuate branch. ad'd to ICU post procedure. OVN Did not require further blood pressure control other than his home 12.5mg coreg dose. Pain was wellcontrolled and is making good UOP. Simethacone x1 ovn gas pain Afebrile. Given coreg yesterday evening at 6pm with good blood pressure control. Early this am around 5am BP started to increase, when I checked at 7am titrated back downto high 150's. Due for coreg at 8am, HR 70-80 RR 15-20 >/= 95% UOP - on average 0.6cc/hr (net -400cc /24) CONSTITUTIONAL DATA: Blood Pressure: 183/107 mmHg Last 12H: Most Recent Systolic BP Av.5 mmHg Min: 121 mmHg Max: 183 mmHg Pulse: 85 Last 12H: Pulse Av.3 Min: 66 Max: 85 Temperature: 37 C (98.6 F) Last 12H: Most Recent Temperature Av.6 C Min: 36.28 C Max: 37 C Respiratory Rate: 14 O2 Saturation: 97 % Intake/Output Summary (Last 24 hours) at 05/23/2024 0708 Last data filed at 05/23/2024 0700 Gross per 24 hour Intake 720.1 ml Output 1125 ml Net -404.9 ml Net Since Admission: Physical Examination General appearance: alert and oriented. In no acute distress. HEENT: opens eyes spontaneously. EOMI. Pupils equal and reactive b/l. AT/NC CV: regular rate and rhythm Pulm: lungs clear to aust, no increased work of breathing GI: tenderness to palpation of left abdomen and left flank. No evidence of busing, abdomen soft, non distended, not rigid MSK:moves all 4 extremities. No pitting edema. Right groin access, dressing c/d/I, soft Neuro: sleepy but awakens easily to voice and is alert and oriented Skin: no rashes or significant busing.warm and dry UOP = Urine Output Urine Output Source: IUBC (freed) (05/23/24 0700) Voiding: Small (05/22/24 1100) Urine Output (ml) (Excludes Catheters): 20 ml (05/22/24 1100) Last BM = Last Bowel Movement: 05/21/24 (05/22/241999) Laboratory Values: Lab results within last 7 days (see chart for full results) Units 05/22/24 0157 Lactate mmol/L 1.1 Lab results within last 7 days (see chart for full results) Units 05/22/24 2119 05/22/24 1554 05/22/24 0758 05/22/24 0003 HGB g/dL 8.3* 9.3* 10.4* 10.8* HCT % 26.7* 28.6* 33.9* 33.8* WBC K/uL 11.63* 14.89* 10.04 12.04* PLT K/uL 210 217 188 174 Neutrophils % % -- -- -- 87.3* Monocytes % % -- -- -- 6.2 Eosinophils % % -- -- -- 1.5 Lab results within last 7 days (see chart for full results) Units 05/22/24 1554 05/22/24 0758 05/22/24 0003 Sodium mmol/L 130* 133* 134* Potassium mmol/L 4.5 4.5 4.3 Chloride mmol/L 95* 98 98 CO2 mmol/L 19* 20* 18* BUN mg/dL 94* 90* 90* Creatinine mg/dL 9.2* 9.2* 8.7* Lab results within last 7 days (see chart for full results) Units 05/22/24 0003 Protein g/dL 6.5 Bilirubin, Total mg/dL 1.5* Alkaline Phosphatase U/L 46 AST U/L 63* ALT U/L 32 Microbiology: Radiographic & Other Studies: CTA ABD/PELVIS Result Date: 05/22/[address] abdomen/pelvis obtained earlier on 05/22/2024: Increased size of the large left perirenal hematoma with active hemorrhage into the left retroperitoneum from a probable smallpseudoaneurysm. Pulmonary edema in the lung bases and small bilateral pleural effusions. Critical Result: The information above was relayed directly by in via secure [employer] connect messaging to CAMILA ORTIZ on 05/22/2024 at 12:32 pm who expressed understanding. US ABDOMEN COMPLETE Result Date: 05/22/2024 IMPRESSION: There is a 10 cm subcapsular hematoma of the left kidney. No evidence for active hemorrhage on provided color Doppler images. THIS DOCUMENT HAS BEEN ELECTRONICALLY SIGNED BY CORNELIO HARMON MD CT ABD/PELVIS WO IV/ORAL CONTRAST Result Date: 05/22/2024 IMPRESSION: 1. 10.5 cm subcapsular hematoma of the left kidney. 2. There are bibasilar parenchymal consolidations which have a somewhat ground-glass appearance and correlation for viral or bacterial pneumonitis is suggested. THIS DOCUMENT HAS BEEN ELECTRONICALLY SIGNED BY CORNELIO HARMON MD Current Facility-Administered Medications Medication Dose Route Frequency Provider Simethicone (Mylicon) chew tab 80 mg 80 mg Oral Q6H PRN Trevor Rojas DO Acetaminophen (Tylenol) tab 650 mg 650 mg Oral Q6H Eloise Schofield MD Carvedilol (Coreg) tab 12.5 mg 12.5 mg Oral BID (AM/PM meals) uCba Gómez MD chlorHEXIDINE (Periogard) 0.12 % oral rinse 15 mL 15 mL Oral mucosal membrane BID (0800,1999) Cuba Gómez MD cholecalciferol (VIT D3) (Vitamin D3) tab 1,000 Units 1,000 Units Oral Daily(AM) Vikas Agosto MD HYDROmorphone (Dilaudid) inj 0.5 mg 0.5 mg IV Push Q4H PRN Vikas Agosto MD labetalol (Trandate) inj 10 mg 10 mg Intravenous Q1H PRN Eloise Schofield MD levothyroxine (Levoxyl) tab 200 mcg 200 mcg Oral Daily 0630 Vikas Agosto MD Oral Hygiene: Mouth Swab with dentifrice Oral Q4H Limited (00;04;12;16) Cuba Gómez MD oxyCODONE (Oxy IR) tab 5 mg 5 mg Oral Q6H PRN Eloise Schofield MD Sevelamer Carbonate (Renvela) tab 800 mg 800 mg Oral With meals Vikas Agosto MD sodium chloride 0.9 % flush peripheral jordan 3 mL 3 mL IV Push Q8H Cuba Gómez MD sodium chloride 0.9 % flush/inj 3 mL 3 mL IV Push PRN Vikas Agosto MD CRITICAL CARE SYSTEM REVIEW & ASSESSMENT/PLAN: Active Problems: Renal hematoma, left (POA: Unknown) ESRD (end stage renal disease) (HCC) (POA: Unknown) Abdominal pain (POA: Unknown) Page kidney (POA: Unknown) VNEKAT (acute kidney injury) (HCC) (POA: Unknown) Stage 3 chronic kidney disease (HCC) (POA: Unknown) Hyperphosphatemia (POA: Unknown) Anemia due to stage 3 chronic kidney disease (HCC) (POA: Unknown) Acute blood loss anemia (POA: Unknown) Resolved Problems: * No resolved hospital problems. * POA = Present On Admission left renal active hemorrhage into subcapsular space after renal biopsy on 05/19. S/p coil and embolization with IR on 05/22. Hypertensive emergency, likely 2/2 to renal compression and activation of RAAS given renal hematoma VENKAT on CKD, 2/2 chronic hypertension, PAGE kidney Acute blood loss Chronic conditions: NEURO No acute concerns, tired but arousable alert and oriented post procedure Analgesia - Tylenol 650mg PRN pain or fever - Oxy IR 2.5mg po q6 mod pain - oxy IR 5mg po q6h severe pain - dilaudid 0.5mg IVP breakthrough pain PRN q4 - Current Pain Score: 1 (mild pain) (05/23/24 0600) RESP No acute concerns. Recent PNA. CT abd/ pelvis showing trace b/l pleural effusions. CXR showing b/l basilar opacities unchanged, given unchanged favors chronic vs acute changes. - on NC post procedure. Titrate as able as patient becomes more alert. CV Hypertensive emergency in setting of active renal bleeding. Hx of hypertension, on 05/22 received 10mg hydralazine 8am, 2pm. & nitro 100mcg at 1301 for blood pressure control Hemorrhage, monitor for s/s of hemorrhagic shock HFpEF - restart home coreg dose, add half of home amlodipine dose 2.5mg BID - TTE 03/30/24- LVEF 65-70%, LV ventricular hypertrophy, grade II diastolic dysfunction - lactic acid WNL - PRN labetalol 10mg as needed, for SBP >180 GI/HEPATOBILIARY No acute concerns - ok for diet, renal. - Last BM = Last Bowel Movement: 05/21/24 (05/22/241999) - Bowel regimen:none, monitor for need - Stress ulcer ppx: none RENAL/FEN Ckd 4, rapidly declining renal function s/p left renal biopsy and TDC placement on 05/17 with [facility] IR, not currently on dialysis. 05/22 s/p left renal angiogram and possible embolization with IR for active extravasation seen on CTAwith concern for pseudoaneurysm and expanding subcapsular renal hematoma seen on both CT and on abdominal US. PAGE kidney Subacute moderate hyponatremia 129 this am, likely secondary to renal failure and fluid retention. - trial dose lasix this am, 60mg - determine with IR if pt appropriate for hematoma drainage. - 05/17 renal bx: vascular changes consistent with malignant hypertension, acute tubular injury. No evidence of glomerulonephritis or an immune complex mediate process. Interstitial fibrosis and tubular atrophy, 15-20%. - c/w LAN SPECIALIST sevelemar, vit D, - insert freed for accurate I/O's q1hr - maintain serum K>4, P>3, Mg>2 - Renal dosing and medication considerations adjusted for glomerular filtration rate - Daily weights INFECTIOUS DISEASES No acute concerns - UA pending - monitor for leukocytosis & fever ENDOCRINE Hx hypothyroidism - Blood Glucose Monitoring (BGM) Goal: 140-180 - Glycemic Control: continue to monitor need for sliding scale Most recent: Last 24 hours: No data recorded Last 36 hours: No data recorded Last 48 hours: No data recorded - c/w LAN SPECIALIST levothyroxine 200mcg HEMATOLOGIC Active left renal hemorrhage s/p renal biopsy undergoing IR guided embolization - baseline hgb 13, 10.4 this am, appears grossly stable, 10.8 ovn. - DVT ppx: SCBs & TEDS and holding chemical AC due to concern of bleed - will give chemical dvt ppx once cleared by IR and nephro for no up coming procedure. MSK/DERM No acute concerns - PT/OT consulted, appreciate recommendations - Wound care: none L/D/As LINES ALL Duration Dialysis Catheter Double Lumen Right Internal jugular 5 days Peripheral Line Left Hand 20 Gauge 1 day Peripheral Line Right Wrist 22 Gauge <1 day Urethral Catheter Coude <1 day P.T./O.T./MOBILITY: Consulted GLOBAL ISSUES: Disposition: c/w ICU care Patient's decisional capacity: has capacity to make decisions Communication with Patient/Family: is at bedside. and patient updated. Patient was seen, was examined, and was discussed with attending physician, MD Cuba Angulo MD ED Resident PGY3 Associated attestation - Yash Rooney MD - 05/23/2024 2:56 PM EDT I saw and evaluated the patient today. I have reviewed the resident/fellow physician note and agree. [place] [facility] [place] with large left pararenal hematoma with active hemorrhage into the left retroperitoneum status post IR guided embolization. Now acute blood loss anemia-likely seeing effect of bleeding over last 24 hours with hemoglobin slowly trending down. Continue to trend H&H closely and keep type and screen active, transfuse for hemoglobin below 7. LAN SPECIALIST Coreg twice dailyregimen along with low-dose Norvasc. Nephrology following for acute kidney injury on CKD stage 4 daily for renal replacement therapy indication. Give IV Lasix today and monitor I's and O's. As per Nephrology discussed with IR no plan for additional drainage of hematoma and patient appears hemodynamically stable so plan for transfer to [facility] status later today. Remainder plan as documented below. I spent a total of 50 minutes coordinating, documenting, and providing care for this patient excluding time spent in the performance of separately billed services. * Yash Rooney MD - 05/22/2024 3:27 PM EDT Attending Attestation: I have discussed the patient's management with the medical trainee and agree with the note except where noted in my note. Please refer to the documented findings and plan of care. The patient's service consisted of an evaluation. I have seen and evaluated the patient. Briefly, 53 year old male with past medical history of CKD stage 4, hypertension, hypothyroidism, depression, hyperlipidemia with recent kidney biopsy on 05/17/2024 presented to [facility] ED with chief complain of acute left-sided lower abdominal pain and found to have subcapsular hematoma of the le ft kidney approximately 10.5 cm on abdominal imaging; subsequently transferred to [facility] under hospitalist team for further management. Patient noted to be in excruciating pain secondary to stretching of the renal capsule with possibleactive bleed as per Nephrology underwent repeat CTA angiogram and underwent IR guided emergent embolization. Postprocedure patient remained hypertensive with systolic blood pressure around 180 mmHg and as per Nephrology suggestion [facility] triage was contacted and subsequently transferred [place] [facility] [place] further management. Seen and evaluated at bedside. Not in acute distress Normocephalic atraumatic Bilateral breath sounds equally present without any adventitious sounds. Rate around 80s-90s without rub or gallop. Abdomen bowel sounds present with mild soreness on the left side of the abdomen compared to before was significant tenderness on palpation. Lower extremity mild edema noted, pulses intact. Neurologically: Awake, alert, following commands appropriately. GCS of 15. Nonfocal. Labs and imaging reviewed : Chemistry panel with BUN of 90 creatinine 9.2 sodium of 133 bicarb of 20 anion gap of 15 otherwise electrolytes are stable Lactic acid 1.1 [place] [address] with hemoglobin slowly decreasing to 10.4 g% (12.2 g % on 05/16) withplatelet count 194049 LFTs with AST 63 bilirubin 1.5 otherwise unremarkable UA with large blood with proteinuria with bacteriuria with 6-9 WBC without any nitrite or esterase Imaging reviewed as below CTA ABD/PELVIS Result Date: 05/22/[address] abdomen/pelvis obtained earlier on 05/22/2024: Increased size of the large left perirenal hematoma with active hemorrhage into the left retroperitoneum from a probable smallpseudoaneurysm. Pulmonary edema in the lung bases and small bilateral pleural effusions. Critical Result: The information above was relayed directly by me via secure [employer] connect messaging to CAMILA ORTIZ on 05/22/2024 at 12:32 pm who expressed understanding. US ABDOMEN COMPLETE Result Date: 05/22/2024 IMPRESSION: There is a 10 cm subcapsular hematoma of the left kidney. No evidence for active hemorrhage on provided color Doppler images. THIS DOCUMENT HAS BEEN ELECTRONICALLY SIGNED BY CORNELIO HARMON MD CT ABD/PELVIS WO IV/ORAL CONTRAST Result Date: 05/22/2024 IMPRESSION: 1. 10.5 cm subcapsular hematoma of the left kidney. 2. There are bibasilar parenchymal consolidations which have a somewhat ground-glass appearance and correlation for viral or bacterial pneumonitis is suggested. THIS DOCUMENT HAS BEEN ELECTRONICALLY SIGNED BY CORNELIO HARMON MD Assessment- Large left pararenal hematoma with active hemorrhage into the left retroperitoneum with? Pseudoaneurysm status post IR guided embolization on 05/22/2024 Acute blood loss anemia secondary to above Acute kidney injury on CKD stage 4 Secondary hypertension from stretching of renal capsule History of CKD stage 4, hypertension, hypothyroidism, depression, hyperlipidemia with recent kidneybiopsy on 05/17/2024 Plan for tonight- Serial abdominal examination. Monitor vital signs and maintain mean arterial pressure more than 65 mmHg with goal systolic blood pressure close to 160 mmHg as per Nephrology team. P.r.n. labetalol with LAN SPECIALIST Coreg to be resumed today. If needed can add Cardene drip. Clear liquids for tonight; advanced diet in a.m. as tolerated. Monitor kidney function and lytes, replete lytes accordingly. Avoid nephrotoxic agents. Monitor strict intake output charting. Monitor CBC periodically. Maintain H&H above 7/21. Keep type and screen active. Hold chemical prophylaxis for tonight. Full code. Patient and patient's spouse updated at bedside in detail about the plan, all the questions and concerns addressed at bedside. No new question remained at this time. For further details, documentation and management plan please see the resident's note. #This note was completed in part utilizing [employer] Speech Voice Recognition Software. Grammatical errors, random word insertions, pronoun errors and incomplete sentences are an occasional consequenceof this system due to software limitations, ambient noise and hardware issues. Please directly address the provider for any questions or concerns about the context, text or information contained within the body of this note. Disposition: keep in ICU I have provided critical care diagnostic services for circulatory failure, renal failure, hematologic failure and therapeutic services with renal replacement therapy assessment, treatment of complex metabolic, frequent evaluation and titration of therapies, extensive interpretation of multiple databases for this patient on the date referenced above. Time devoted to patient care services describedin this note equal: 35 minutes total critical care time exclusive of time spent performing procedures or time spent by another provider or resident. * Cuba Gómez MD - 05/22/2024 2:30 PM EDT CRITICAL CARE MEDICINE - Transfer to ICU NOTE [facility] [id number] Name: Fly De Luna Location: RADIOLOGY WAITING ROOM/IR Date: 05/22/2024 Time: 2:30 PM Date of Admission: 05/22/2024 Hospital Day: 0 PATIENT DESCRIPTION: 53 yomale with PMH of HTN, hypothyroidism, HLD, depressoin and CKD stage 4 whopresented to the Early March presented to [facility] initially for concerns of abnormal labs at PCP. Was found to have elevated Cr, PNA, and be in hypertesnive urgency. During hospitalization, cr continue to worsen. after d/c from [facility] he presented to [facility] for left inferior pole renal biopsy and TDC placement on 05/17. On 05/21 at 2300 pt called [facility] IR for persistent crampy sharp left abdominal pain radiating to his back that started suddenly approx 1 hr prior +N/V Pt presented to [facility] CT at [facility] showing 10.5cm subcapsular hematoma of L kidney. Pt was transferred to [facility] with IR, nephro, and urology on consult. HPI/EVENTS OF NOTE: 05/22- ad'd to [facility] under medicine service. CTA ordered showing active extrav from suspected pseudoaneurysm with enlarging hematoma. Pt taken for emergent arterial embolization with IR. Pt ad'd to ICU post procedure. On admission to the ICU pt is still reporting left flank pain, but reports it has improved since going to IR. He currently denies any N/V. CONSTITUTIONAL DATA: Blood Pressure: (!) 181/112 mmHg Last 12H: Most Recent Systolic BP Av.8 mmHg Min: 162 mmHg Max: 213 mmHg Pulse: 85 Last 12H: Pulse Av.3 Min: 65 Max: 87 Temperature: 35.6 C (96.1 F) Last 12H: Most Recent Temperature Av.7 C Min: 35.61 C Max: 35.72 C Respiratory Rate: 25 O2 Saturation: 93 % Intake/Output Summary (Last 24 hours) at 05/22/2024 1430 Last data filed at 05/22/2024 1212 Gross per 24 hour Intake 75.84 ml Output 20 ml Net 55.84 ml Net Since Admission: Physical Examination General appearance: alert and oriented, but somnolent post procedure. In no acute distress. Laying flat HEENT: opens eyes spontaneously. EOMI. Pupils equal and reactive b/l. AT/NC CV: regular rate and rhythm Pulm: lungs clear to aust, no increased work of breathing GI: tenderness to palpation of left abdomen and left flank. No evidence of busing, abdomen soft, non distended, not rigid MSK:moves all 4 extremities. No pitting edema. Right groin access, dressing c/d/I, soft Neuro: sleepy but awakens easily to voice and is alert and oriented Skin: no rashes or significant busing.warm and dry UOP = Urine Output Urine Output Source: Urinal (05/22/24 1100) Voiding: Small (05/22/24 1100) Urine Output (ml) (Excludes Catheters): 20 ml (05/22/24 1100) Last BM = Last Bowel Movement: 05/21/24 (05/22/24 0807) Laboratory Values: Lab results within last 7 days (see chart for full results) Units 05/22/24 0157 Lactate mmol/L 1.1 Lab results within last 7 days (see chart for full results) Units 05/22/24 0758 05/22/24 0003 05/16/24 0839 HGB g/dL 10.4* 10.8* 12.2* HCT % 33.9* 33.8* 37.8* WBC K/uL 10.04 12.04* 5.81 PLT K/uL 188 174 207 Neutrophils % % -- 87.3* -- Monocytes % % -- 6.2 -- Eosinophils % % -- 1.5 -- Lab results within last 7 days (see chart for full results) Units 05/22/24 0758 05/22/24 0003 05/16/24 0839 Sodium mmol/L 133* 134* 139 Potassium mmol/L 4.5 4.3 3.5 Chloride mmol/L 98 98 98 CO2 mmol/L 20* 18* 23 BUN mg/dL 90* 90* 73* Creatinine mg/dL 9.2* 8.7* 7.7* Lab results within last 7 days (see chart for full results) Units 05/22/24 0003 Protein g/dL 6.5 Bilirubin, Total mg/dL 1.5* Alkaline Phosphatase U/L 46 AST U/L 63* ALT U/L 32 Microbiology: Radiographic & Other Studies: CTA ABD/PELVIS Result Date: 05/22/[address] abdomen/pelvis obtained earlier on 05/22/2024: Increased size of the large left perirenal hematoma with active hemorrhage into the left retroperitoneum from a probable smallpseudoaneurysm. Pulmonary edema in the lung bases and small bilateral pleural effusions. Critical Result: The information above was relayed directly by in via secure [employer] messaging to CAMILA ORTIZ on 05/22/2024 at 12:32 pm who expressed understanding. US ABDOMEN COMPLETE Result Date: 05/22/2024 IMPRESSION: There is a 10 cm subcapsular hematoma of the left kidney. No evidence for active hemorrhage on provided color Doppler images. THIS DOCUMENT HAS BEEN ELECTRONICALLY SIGNED BY CORNELIO HARMON MD CT ABD/PELVIS WO IV/ORAL CONTRAST Result Date: 05/22/2024 IMPRESSION: 1. 10.5 cm subcapsular hematoma of the left kidney. 2. There are bibasilar parenchymal consolidations which have a somewhat ground-glass appearance and correlation for viral or bacterial pneumonitis is suggested. THIS DOCUMENT HAS BEEN ELECTRONICALLY SIGNED BY CORNELIO HARMON MD Current Facility-Administered Medications Medication Dose Route Frequency Provider 1/2 NSS 500 mL with sodium bicarbonate 75 mEq infusion Intravenous Continuous Camila Ortiz DO chlorHEXIDINE (Periogard) 0.12 % oral rinse 15 mL 15 mL Oral mucosal membrane BID (0800,1999) Cuba Gómez MD cholecalciferol (VIT D3) (Vitamin D3) tab 1,000 Units 1,000 Units Oral Daily(AM) Vikas Agosto MD fentaNYL (PF) inj Once PRN Adam Arias MD Furosemide (Lasix) tab 20 mg 20 mg Oral Daily(AM) Vikas Agosto MD hydrALAZINE (Apresoline) inj 10 mg 10 mg Intravenous Q6H PRN Vikas Agosto MD HYDROmorphone (Dilaudid) inj 0.5 mg 0.5 mg IV Push Q4H PRN Vikas Agosto MD HYDROmorphone (Dilaudid) inj IV Push Once PRN Adam Arias MD levothyroxine (Levoxyl) tab 200 mcg 200 mcg Oral Daily 0630 Vikas Agosto MD midazolam (Versed) 2 MG/2ML inj Once PRN Adam Arias MD NIFEdipine ER (Adalat CC) tab 30 mg 30 mg Oral Daily(AM) Vikas Agosto MD nitroglycerin (100 mcg/mL) inj Once PRN Adam Arias MD ondansetron (Zofran) inj 4 mg 4 mg IV Push Q6H PRN Vikas Agosto MD Oral Hygiene: Mouth Swab with dentifrice Oral Q4H Limited (00;04;12;16) Cuba Gómez MD oxyCODONE (Oxy IR) tab 10 mg 10 mg Oral Q6H PRN Vikas Agosto MD Sevelamer Carbonate (Renvela) tab 800 mg 800 mg Oral With meals Vikas Agosto MD sodium chloride 0.9 % flush peripheral jordan 3 mL 3 mL IV Push Q8H Cuba Gómez MD sodium chloride 0.9 % flush/inj 3 mL 3 mL IV Push PRN Vikas Agosto MD CRITICAL CARE SYSTEM REVIEW & ASSESSMENT/PLAN: Active Problems: Renal hematoma, left (POA: Unknown) ESRD (end stage renal disease) (HCC) (POA: Unknown) Abdominal pain (POA: Unknown) Resolved Problems: * No resolved hospital problems. * POA = Present On Admission PAGE kidney- left renal active hemorrhage into subcapsular space after renal biopsy Hypertensive emergency, VENKAT on CKD, 2/2 chronic hypertension, sub Chronic conditions: NEURO No acute concerns, tired but arousable alert and oriented post procedure Analgesia - Tylenol 650mg PRN pain or fever - Oxy IR 5mg po q6 severe pain - dilaudid 0.5mg IVP breakthrough pain PRN q4 - Current Pain Score: 5 (moderate pain) (05/22/24 1325) RESP No acute concerns. Recent PNA. CT abd/ pelvis showing trace b/l pleural effusions. CXR showing b/l basilar opacities unchanged, given unchanged favors chronic vs acute changes. - on NC post procedure. Titrate as able as patient becomes more alert. CV Hypertensive emergency in setting of active renal bleeding. Hx of hypertension, on 05/22 received 10mg hydralazine 8am, 2pm. & nitro 100mcg at 1301 for blood pressure control Hemorrhage, monitor for s/s of hemorrhagic shock HFpEF - Goal SBP closet to 160 today in acute phase given likely elevated RAAS compensation - TTE 03/30/24- LVEF 65-70%, LV ventricular hypertrophy, grade II diastolic dysfunction - lactic acid WNL - restart home coreg tonight 12.5mg po - PRN labetalol 10mg as needed, consider nicardipine if needed GI/HEPATOBILIARY No acute concerns - NPO, reassess with bedside swallow once able to sit up post procedure - Last BM = Last Bowel Movement: 05/21/24 (05/22/24 0807) - Bowel regimen:none, monitor for need - Stress ulcer ppx: none RENAL/FEN Ckd 4, rapidly declining renal function s/p left renal biopsy and TDC placement on 05/17 with [facility] IR. 05/22 s/p left renal angiogram and possible embolization with IR for active extravasation seen on CTAwith concern for pseudoaneurysm and expanding subcapsular renal hematoma seen on both CT and on abdominal US. PAGE kidney - nephrology on consult, per nephro SBP goal to be kept between 160-180 given that hypertension is compensatory for PAGE kidney. - Cr continually uptrending outpatient. Initially 2.5 in early March, up to 7.7 on 05/17 when he underwent biopsy - Cr 9.2 this am. - 05/17 renal bx: vascular changes consistent with malignant hypertension, acute tubular injury. No evidence of glomerulonephritis or an immune complex mediate process. Interstitial fibrosis and tubular atrophy, 15-20%. - c/w LAN SPECIALIST sevelemar, vit D, - insert freed for accurate I/O's q1hr - maintain serum K>4, P>3, Mg>2 - Renal dosing and medication considerations adjusted for glomerular filtration rate - Daily weights INFECTIOUS DISEASES No acute concerns - UA pending - monitor for leukocytosis & fever ENDOCRINE Hx hypothyroidism - Blood Glucose Monitoring (BGM) Goal: 140-180 - Glycemic Control: continue to monitor need for sliding scale Most recent: Last 24 hours: No data recorded Last 36 hours: No data recorded Last 48 hours: No data recorded - c/w LAN SPECIALIST levothyroxine 200mcg HEMATOLOGIC Active left renal hemorrhage s/p renal biopsy undergoing IR guided embolization - baseline hgb 13, 10.4 this am, appears grossly stable, 10.8 ovn. - DVT ppx: SCBs & TEDS and holding chemical AC due to concern of bleed MSK/DERM No acute concerns - PT/OT consulted, appreciate recommendations - Wound care: none L/D/As LINES ALL Duration Dialysis Catheter Double Lumen Right Internal jugular 5 days Peripheral Line Left Hand 20 Gauge <1 day Peripheral Line Right Wrist 22 Gauge <1 day P.T./O.T./MOBILITY: Consulted GLOBAL ISSUES: Disposition: c/w ICU care Patient's decisional capacity: has capacity to make decisions Communication with Patient/Family: is at bedside. and patient updated. Patient was seen, was examined, and was discussed with attending physician, MD Cuba Angulo MD ED Resident PGY3 Associated attestation - Yash Rooney MD - 05/22/2024 8:59 PM EDT I saw and evaluated the patient today. I have reviewed the resident/fellow physician note and agree. Please see my separate progress note from the same date for additional details. documented in this encounter H&P Notes * Adam Arias MD - 05/22/2024 12:20 PM EDT PRE-SEDATION ASSESSMENT PRE-SEDATION ASSESSMENT: Left Renal Angiogram Possible Embolization Level of sedation planned: Moderate Patient's allergies reviewed: Yes H&P Review / Interval Note Documentation: I have reviewed the H&P previously performed, examined the patient today, and there are no new findings. Difficulty with sedation / anesthesia: No Sleep apnea: No History of snoring: No History of difficult intubation: No Decreased ROM neck flexion/extension: No Tracheal deviation: No Decreased ability to open mouth / TMJ: No Loose teeth / dentures / partial: No Congenital deformities / abnormalities: No Dysphagia: No Comments: Difficult to assess accurately as the pt was in severe writhing pain Mallampati Classification: I - soft palate, uvula, fauces, pillars visible Chest: Clear Heart: Regular Rhythm ASA Risk Stratification (Select One): ASA 3 - Severe systemic disease, definite functional limitations Procedure: Emergent The patient was identified and the procedure verified: Yes * Vikas Agosto MD - 05/22/2024 7:58 AM EDT Images from the original note were not included. [facility] G200/A PRESENTING PROBLEM: abd pain, renal hematoma HPI: Fly De Luna is a 53 year old male wast medical history of hypertension, hypothyroidism, hyperlipidemia, depression and CKD stage 4. -Patient recently hospitalized at [facility] with pneumonia, hypertensive urgency and creatinine of 2.5 which kept worsening and now pt is s/o renal bx on 05/17 and TDC. -dev a sudden pain in L flank which radiates to his abdomen, continuous, 05/29. Was urinating well yesterday, not much today. Endorses metallic taste, ALCAZAR. Denies cough, chills, fevers -pt stopped taking lasix and amlodipine a week ago -imaging at [facility] showed 10.5 cm subcapsular hematoma of the left kidney. -recd dilaudid 0.5 mv iv x2, 0.25mg iv x 1, acetaminophen 1 g IV x1 at [facility]. Subjective Patient's past history, medications, and allergies were reviewed. Objective Physical Exam Most Recent Vital Signs: BP: 162 mmHg/106 mmHg (05/22/24 0750) Pulse: 72 (05/22/24 0750) Resp: 18 (05/22/24 0750) Temp: 35.72 C (05/22/24749) Temp Summary: Temp Min: 35.7 C (96.3 F) Max: 35.7 C (96.3 F) SpO2: 99 % (05/22/24749) O2 flow rate: Supplemental O2 Delivery: Constitutional: mod-sev distress,well built HEENT: NC/AT, no masses / Sclera clear and EOMI, no nystagmus /dry oral mucosa, trachea midline CV: Regular rhythm and rate, no murmur, gallops or rubs R sided TDC Respiratory: Normal resp effort on room air, no accessory muscle use, no crackles, wheezing, rhonchi Abdomen: Soft, nondistended, normoactive bowel sounds, no cva tenderness Musculoskeletal: ROM wnl Skin: Dry, warm, intact without rashes or lesions Neuro: A&Ox3, no focal neurological deficits; B/L LE and UE strength and sensations equal and intact, babinski negative Psych: Appropriate mood/affect, answers questions appropriately STUDIES: Encounter Orders Labs and other studies reviewed in [facility] by me Assessment and Plan IMPRESSION: Active Problems: * No active hospital problems. * Resolved Problems: * No resolved hospital problems. * DIFFERENTIAL AND PLAN: 53 yo w ESRD presented with sudden onset flank pain, found to have L renal subcapsular hematoma Vital signs - 170/102, 68, afebrile Labs - Hb 10.8 from 12.2 5 days ago. BUN 90, cr 8.7, Mg 3, po4 6.5 Physical exam - mod- sev distress, L flank pain Imaging - CTA AP - 10.5 cm subcapsular hematoma of the left kidney. #subcapsular hematoma of the left kidney #L flank pain #ESRD #Uremia #hyperphosphatemia -no active bleed on imaging -cbc, bmp stat -vitals q4h -urology, IR consulted -hydralazine 10mg iv q8h prn for SBP >160 -NPO for now -hold LAN SPECIALIST cored 2/2 bradycardia -hold LAN SPECIALIST lasix 40mg qd -sevelamer started -repeat imaging in the next 24/48H -Nephrology consulted for HD initiation as pt has sig BUN rise -low susp for infectious process, hold off abx for now #FEN: PO, replete p.r.n. #DVT prophylaxis: Hold PHARMACOLOGIC VTE PROPHYLAXIS: This patient does not have an active medication from one of the medication groupers. CODE STATUS: Full Code EXPECTED DISCHARGE DATE: No information available I spent a total of 88 minutes coordinating, documenting, and providing care for this patient excluding time spent in the performance of separately billed services. documented in this encounter Procedure Notes * Janie Nath MD - 05/22/2024 3:01 PM EDT PROCEDURE NOTE - Interventional Radiology [address] [address] Name: Fly De Luna Location: RADIOLOGY WAITING ROOM/IR Date: 05/22/2024 Time: 3:02 PM PROCEDURE: Renal arteriography with coil and gelfoam embolization of a fourth order inferior pole arcuate branch POLICEWOMAN: Dr. Adam Arias RESIDENT: Dr. Janie Nath ANESTHESIA: local conscious sedation COMPLICATIONS: none SPECIMEN: none ESTIMATED BLOOD LOSS: 15-20 cc FINDINGS: Anechoic, compressible R [employer]; active contrast extravasation from an inferior pole arcuatebranch; coils in appropriate position with one in the third order branch following inadvertent post-deployment retrograde movement; resolution of the extravasation on post-embolization imaging PLAN: - Lay flat x 4h - Monitor groin access site - Continue trending hgb with management per primary documented in this encounter Consult Notes * Nona Payne RN - 05/23/2024 11:30 AM EDTAssociated Order(s): CARE MANAGEMENT CONSULT IP Please see ancillary tab for note from care management. ICU transfer. CM will follow for transitional needs. * Jemiam Orta OTR/Lizet - 05/23/2024 10:07 AM EDTAssociated Order(s): ADULT OCCUPATIONAL THERAPY CONSULT IP General Evaluation - Occupational Therapy [facility] [address] Name: Fly De Luna Location: [facility] A546/A Date: 05/23/2024 Time: 10:07 AM Fly De Luna is a 53 year old male. Patient Status: Inpatient Insurance: Payor: [employer] PA ([employer]) Plan: [employer] BS Product Type: *No Product type* Patient Seen: at bedside, nursing cleared patient for therapy Patient Identified By: Name, ID Band and Date Diagnosis: hematoma of left kidney (05/23/241006) Status of treatment: Evaluation completed (05/23/241006) Orders: OT evaluation and treatment;OT OOB (05/23/241006) Weight Bearing Status: Weight bearing as tolerated (05/23/241006) Precautions: Alarms;Falls;Safety (05/23/241006) Total Treatment Time: 13 (05/23/241006) Past Medical History: Past Medical History: Diagnosis Date Depression Hypothyroidism Past Surgical History: Past Surgical History: Procedure Laterality Date IR BIOPSY 05/17/2024 IR VENOUS ACCESS NON-MEDIPORT 05/17/2024 UMBIL HERNIA REPAIR (REDUCIBLE) AGE 5+YR Social History/Disposition Lives with: Spouse (05/23/241006) Assistance available: Yes (05/23/241006) Dwelling type: Single story home (05/23/241006) Entry steps: 2 (05/23/241006) Inside steps: None (05/23/241006) Bedroom location: 1st floor (05/23/241006) Bath location: 1st floor full bath (05/23/241006) Prior Level of Function Reported by: Patient (05/23/241006) Ambulation: Ambulatory without device (05/23/241006) Grooming: Independent (05/23/241006) Bathing: Independent (05/23/241006) Dressing: Independent (05/23/241006) Feeding: Independent (05/23/241006) Toileting: Independent (05/23/241006) Meal Prep: Independent (05/23/241006) Homemaking: Independent (05/23/241006) Shopping: Independent (05/23/241006) Driving: Yes (05/23/241006) Durable Medical Equipment at home: No device (05/23/241006) Subjective: Pt supine in bed upon therapists arrival. Pt pleasant and agreeable to occupational therapy services. Pain: No complaints of pain Observations Consciousness: Alert (05/23/241006) Orientation: Oriented times 4 (05/23/241006) Psychosocial: Patient can converse in a social setting;Patient can communicate basic needs (05/23/241006) Sitting posture: Forward head;Rounded shoulders (05/23/241006) Standing posture: Forward head;Rounded shoulders (05/23/241006) Safety awareness: The Patient verbalizes insight of current deficits.;The Patient demonstrates carryover of insight during functional tasks. (05/23/241006) Other Findings Endurance: Functional activity;Fair (05/23/241006) Light touch sensation: LUE;RUE;Intact (05/23/241006) Coordination: LUE;RUE;Intact (05/23/241006) Tone: Normal tone (05/23/241006) Edema: No edema noted (05/23/241006) Current Functional Status: Bilateral Upper Extremity Range of Motion: WFL (05/23/241006) Strength Assessment: Deficits noted (05/23/241006) LUE: Shoulder;Elbow;Grasp;4/5 (05/23/241006) RUE: Shoulder;Elbow;Grasp;4/5 (05/23/241006) Self Care Able to provide self care: Yes (05/23/241006) Feeding: Supervision (Please comment) (for set-up assistance) (05/23/241006) Grooming: Supervision (Please comment) (to simulate washing face when seated in recliner chair, supervision for set-up assistance) (05/23/241006) Dressing Lower Body: Contact Guard (to long socks when seated EOB) (05/23/241006) Functional Ambulation Assistive Device: No device (05/23/241006) Distance in feet:: 5 (05/23/241006) Level of Assistance: Contact Guard (05/23/241006) Bed Mobility Supine-Sit: Supervision (Please comment) (05/23/241006) OT Transfers Sit-Stand: Contact Guard (05/23/241006) Stand-Sit: Contact Guard (05/23/241006) Bed-Chair: Contact Guard (05/23/241006) Balance Sit (Static): Fair (05/23/241006) Sit (Dynamic): Fair (-) (05/23/241006) Stand (Static): Fair (-) (05/23/241006) Stand (Dynamic): Fair (-) (05/23/241006) Alarm Status Patient positioned in: Chair (05/23/241006) With: Pressure pad alarm intact and functioning and call gonzalez in reach (05/23/241006) Following session patient seated OOB in chair with chair alarm activated. Chair alarm (did not havecord to plug into call gonzalez system and/or room did not have port to plug cord into call gonzalez system). Patient's nurse was made aware. Patient and Family Goals: to get well and to return home Patient Education Education Topic: Role of OT;Plan of care goals (05/23/241006) Review of Precautions: Safety;Fall (05/23/241006) Method of Education: Verbalized to patient (05/23/241006) Education Provided to: Patient (05/23/241006) Response to Education: Receptive and agreeable to education (05/23/241006) Barriers to learning: None (05/23/241006) Preferred learning method: Combination (05/23/241006) Treatment Provided: Evaluation Moderate Complexity 13 minutes - 35103: Patient was cooperative and pleasant during treatment session. Moderate complexity evaluation performed and 3-5 activity limitations were identified, including ADL deficit, functional mobility deficit, bed mobility deficit, decreased strength, decreased endurance, and impaired balance. Minimal or moderate modification of the functional task was necessary to complete the evaluation. Deficits Requiring O.T. Treatment: Deficits requiring O.T. treatment needs: ADL/self-care;Balance;Endurance;Functional mobility;IADL;Safety;Upper extremity strength;Weakness (05/23/241006) Assessment: Pt is a 53 year old male admitted to [facility] for hematoma of L kidney. Pt supine in bed upon therapists arrival. Pt reports he lives with his in 1 story home with 2 AMINA. Prior to admission pt was independent in all ADL/IADL tasks and did not utilize a device for functional mobility. Ptcompleted supine to sit transfer with supervision with HOB elevated and use of bed railing to assist with righting trunk into neutral seated positioning and for advancing legs/hips towards EOB. Pt tolerated ~5 mins seated EOB with fair seated balance to further increase postural strengthening and endurance during functional ADL/IADL tasks. Pt donned socks when seated EOB with contact guard assistance secondary to increased instability with forward functional reaching. Pt completed sit to stand transfers from EOB and functional ambulation ~5ft to recliner chair with no device with contact guard assistance to ensure safety due to generalized weakness and instability. Further distance limited at this time due to low Hgb and pt reporting feeling very "shakey" during mobility. Once seated in recliner chair, pt able to simulate washing face and complete self- feeding task with supervision for set-up assistance. Pt relieved seated in recliner chair, call gonzalez in reach, all needs met. Currently, pt presents with difficulty in ADL completion and functional mobility secondary to decrease in strength, balance, endurance, safety awareness, and pt's overall current medical status. Pt would benefit from continue skilled OT services to further increase strength, endurance, and independence in ADL/IADL tasks and facilitate a safe transition to the next level of care. Please consider home with post-acute care services which may include home health or outpatient therapy. The level of care willbe determined in collaboration with the patient, family/caregiver and care team members. OT Goals: Upper Extremity Strength/ROM Pt will increase bilateral upper extremity strength by 1/2 muscle grade. ADL/IADL Tasks Pt will demonstrate upper body bathing with independence. Pt will demonstrate upper body dressing with independence. Pt will demonstrate lower body bathing with independence. Pt will demonstrate lower body dressing with independence. Pt will demonstrate toileting with independence. Pt will demonstrate grooming with independence. Bed Mobility/Functional Mobility Pt will complete supine to sit transfer with independence. Pt will complete sit to supine transfer with independence. Pt will complete rolling left/right with independence. Pt will complete functional mobility with least restrictive device with independence. OT Transfers Pt will demonstrate sit to stand transfers with independence. Pt will demonstrate bed to chair transfers with independence. Pt will demonstrate toilet transfers with independence. Pt will demonstrate tub bench/shower transfers with independence. Balance Pt will increase seated balance to good during ADL tasks. Pt will increase standing balance to fair+ during ADL tasks. Activity Tolerance/Endurance Pt will increase activity tolerance to 15 min when in stance to increase overall independence and safety in ADL/IADL tasks Goal Time Frame: 8 visits Treatment Plan: Energy Conservation, Safety, Homemaking Skills, Bed mobility training, Functional Ambulation, Transfer training, Upper extremity strengthening, Balance activities, ADL training, and Endurance Anticipated Frequency (on eval): (1-5x/wk) (05/23/241006) AM-PAC Help From Another Person Eating Meals: A little (05/23/241006) Help From Another Person Taking Care of Personal Grooming: A little (05/23/241006) Help From Another Person To Put On/Take Off Upper Body Clothing: A little (05/23/241006) Help From Another Person To Put On/Take Off Lower Body Clothing: A little (05/23/241006) Help From Another Person Toileting: A little (05/23/241006) Help From Another Person Bathing: A little (05/23/241006) OT AM-PAC Score: 18 (05/23/241006) OT AM-PAC t-Scale Score: 38.66 (05/23/241006) A portion of this AM-PAC assessment not scored based on functional assessment, rather clinical decision making utilized based on current findings and/or prior level of function. Please refer to future AM-PAC calculations of functional ability as they become available. * Katie Barragan, PT - 05/23/2024 9:54 AM EDTAssociated Order(s): ADULT PHYSICAL THERAPY CONSULT IP GENERAL EVALUATION - Physical Therapy [address] [id number] Name: Fly De Luna Location: [facility] A546/A Date: 05/23/2024 Time: 1:25 PM Fly De Luna is a/an 53 year old male. Patient Status: Inpatient Insurance: Payor: BLUE SHIELD - [place] ([employer]) Plan: SELECT BLUE [place] Product Type: *No Product type* Patient Seen: at bedside, nursing cleared patient for therapy Patient Identified By: Name, ID Band and Date Diagnosis: renal hematoma (05/23/24953) Status of treatment: Evaluation completed (05/23/24953) Orders: PT evaluation and treatment (05/23/24953) Weight Bearing Status: Weight bearing as tolerated (05/23/24953) Precautions: Alarms;Safety (05/23/24953) Total Treatment Time--free text: 13 (05/23/24953) Past Medical History: Past Medical History: Diagnosis Date Depression Hypothyroidism Past Surgical History: Past Surgical History: Procedure Laterality Date IR BIOPSY 05/17/2024 IR VENOUS ACCESS NON-MEDIPORT 05/17/2024 UMBIL HERNIA REPAIR (REDUCIBLE) AGE 5+YR Subjective: Pt in bed and willing to get up to the chair. Social History/Disposition Lives with: Spouse (05/23/24953) Assistance available: Yes (05/23/24953) Dwelling type: Single story home (05/23/24953) Entry steps: 2 (05/23/24953) Inside steps: None (05/23/24953) Bedroom location: 1st floor (05/23/24953) Bath location: 1st floor full bath (05/23/24953) Prior Level of Function Reported by: Patient (05/23/24953) Ambulation: Ambulatory without device (05/23/24953) Observations Consciousness: Alert (05/23/24953) Orientation: Oriented times 4 (05/23/24953) Psychosocial: Patient can communicate basic needs (05/23/24953) Pain: No complaints of pain Range of Motion Range of Motion: WFL (05/23/24953) Strength Assessment Strength Assessment: Deficits noted (05/23/24953) WNL, except: LLE;RLE (05/23/24953) LLE: 4/5 (05/23/24953) RLE: 4/5 (05/23/24953) P.T. Bed Mobility Supine-Sit: Supervision (05/23/24953) Transfers Sit-Stand: Contact Guard (05/23/24953) Stand-Sit: Contact Guard (05/23/24953) Ambulation: Distance ambulated (feet): 5 ft Assist: Contact Guard Balance Sit (Static): Good (05/23/24953) Sit (Dynamic): Good (05/23/24953) Stand (Static): Fair (05/23/24953) Stand (Dynamic): Fair (05/23/24953) Patient and or Family Goal(s): to return home Patient Education Review of Precautions: Safety (05/23/24953) Safety Awareness: Patient verbalizes insight of current deficits (05/23/24953) Preferred learning method: Combination (05/23/24953) Barriers to learning: Medical Status (05/23/24953) Method of Education: Verbalized to patient (05/23/24953) Topic of Education: Safety with mobility and Goals/plan of care Method of Education: Verbal discussion and explanation provided to patient: verbalized understanding and or agreement of this information Treatment Provided: Evaluation Moderate Complexity 13 minutes - 19818: Patient was cooperative and pleasant during treatment session. Moderate complexity evaluation performed and 1-2 personal factorsor comorbidities were identified that will impact plan of care, including ESRD and anemia. Patient presents with limitations in strength, bed mobility, transfers, gait, elevations, and balance, whichwill impact plan of care. These limitations will be addressed by the goals set for this patient. Alarm Status Patient positioned in: Chair (05/23/24953) With: Pressure pad alarm intact and functioning and call gonzalez in reach (05/23/24953) Following session patient seated OOB in chair with chair alarm activated. Chair alarm (did not havecord to plug into call gonzalez system and/or room did not have port to plug cord into call gonzalez system). Patient's nurse Brianna was made aware. Treatment Status: Treatment at bedside (05/23/24953) Goals: Demonstrate Bed Mobility with: Supine to Sit: independent (pt does 100%) Sit to supine: independent (pt does 100%) Demonstrate Transfers with: Sit to stand: independent (pt does 100%) Stand to sit: independent (pt does 100%) Bed to chair: independent (pt does 100%) Demonstrate Ambulation: distance in feet: 250 ft level of assistance on level surface: independent (pt does 100%) Demonstrate Stairclimbing: Number of steps: 2 and Level of Assistance: independent (pt does 100%) Increase Strength of: BLE's to 5/5 Increase Balance: G dynamic standing Time Frame: 8 visits Assessment: Pt lives with his in a 1 story home with 2 steps to enter and was not using a device for ambulation. He presented to the hospital on 05/22 with a renal hematoma and underwent angiogramand embolization. Pt able to complete all bed mobility with supervision. He was then able to transfer and ambulate without a device 5 ft bed to chair contact guard. Distance limited due to low Hgb and pt feeling "shakey." Feel pt would benefit from PT services in order to increase overall functional mobility as well as activity tolerance. Please consider home with post-acute care services which may include home health or outpatient therapy. The level of care will be determined in collaboration with the patient, family/caregiver and care team members. Deficits requiring P.T. treatment needs: Safety;Mobility;Balance;Weakness;Lower extremity strength (05/23/24953) Equipment Needs: Treatment Plan: Bed mobility training, Transfer training, Gait training, Elevation training, Strengthening exercises: BLE's, and Balance activities Anticipated Frequency (on eval): (1-5 times a week) (05/23/24953) AM PAC Score with Stairs: 18 A portion of this AM-PAC assessment not scored based on functional assessment due to no assessment of elevations; rather clinical decision making utilized based on current findings and/or prior levelof function. Please refer to future AM-PAC calculations of functional ability as they become available. * Juli Gomez RDN - 05/22/2024 9:12 AM EDT CLINICAL NUTRITION CONSULT/PROGRESS NOTE [facility] [place]-[address] [address] Name: Fly De Luna Location: RADIOLOGY WAITING ROOM/IR Date: 05/22/2024 Time: 9:12 AM How patient was identified (select 2): date and Name Discussed in interdisciplinary rounds: Tiki De Luna is a 53 year old male being seen for reduced dietary intake and significant unintentional weight loss Primary Diagnosis: Admitted with abdominal pain, renal hematoma - hx of HTN, CKD4 Other pertinent information: Pt was in significant pain at time of assessment. Was not able to obtain much information from pt at this time. Does report having no appetite and feels this started maybe weeks ago. Has also had a decline in PO intake. Pt has a TDC though has not started on dialysis. Will monitor renal function and plan for dialysis. NUTRITION ASSESSMENT: Past medical/surgical history and medications reviewed. Food/Nutrition-Related History Diet: NPO Previously followed diet: Unknown Food Allergies/Intolerances: No known Adult Energy Intake: Unable to obtain at present time - decline noted though not able to obtain further information Percentage of meal intake: NPO status Oral Nutrition Supplement (ONS): None Pertinent medications/vitamins/minerals/supplements: 1/2 NSS 500 ml with sodium bicarbonate infusion, vitamin D3, furosemide, levoxyl, renvela Pertinent Biochemical Data: Latest Reference Range & Units 05/22/24 00:03 05/22/24 07:58 Sodium 135 - 146 mmol/L 134 (L) 133 (L) Potassium 3.5 - 5.1 mmol/L 4.3 4.5 BUN 6 - 20 mg/dL 90 (H) 90 (H) Creatinine 0.6 - 1.2 mg/dL 8.7 (H) 9.2 (H) Estimated Glomerular Filtration Rate >=60 mL/min 7 (L) 6 (L) Magnesium 1.5 - 2.6 mg/dL 3.0 (H) Phosphorus 2.5 - 4.8 mg/dL 6.5 (H) CKD4 - renal failure -- will monitor need for dialysis Nutrition-Focused Physical Findings: Appearance: Ill-appearing Respiratory support: Nasal/Oral: No issues identified Digestive: Appetite poor Last Bowel Movement: 05/21/24 (05/22/24 0807) Cognition: Awake, alert Skin: Intact Enteral access: None Nutrition Focused Physical Exam: NFPE not able to be completed as pt has been in pain Anthropometrics Measurements Height: 187.9 cm (6' 1.98") (05/22/24 0500) Admission weight: 106.7 kg Weight: 106.7 kg (235 lb 3.7 oz) (05/22/24 050) BMI: 30.22 (05/22/24 050) Usual Body Weight: 105-110 kg per EHR [place] weight: 88 kg [place] Weight Based on BMI: 24.9 Interpretation of Weight Change Prior to Admission: No recent/significant weight change Weight Changes Since Admission: will monitor Nutrition Prescription: Energy needs: 20-25 Kcal/kg Kcal/day: 0062-0163 Based on admission weight Protein needs: 0.8-1.0 gm/kg Protein: 86-107 Based on admission weight Fluid needs: Urine output + 1000 ml - if started on dialysis Malnutrition: Adult Malnutrition Classification: Unable to determine (05/22/24 1221) NUTRITION DIAGNOSIS: Suboptimal energy intake related to acute illness/renal hematoma as evidenced by reported decreasedappetite and intake. Altered nutrition-related laboratory values related to CKD/renal failure as evidenced by potential need for HD. Goals: Transition to oral or enteral nutrition support as soon as clinically feasible. NUTRITION INTERVENTION/PLAN: Continue to monitor NPO/clear liquid status Clinical Nutrition Recommendations: Diet: Advance diet when clinically feasible NUTRITION MONITORING AND EVALUATION: NPO status/diet advancement and tolerance Lab values warranting change with MNT Weight for trends Plan follow-up: Will follow and adjust nutrition plan of care as medical condition requires. Please contact for change(s) in patient condition requiring earlier intervention. Juli Gomez RDN, JESSICAN Clinical Dietitian Extension: [phone] [employer] * Camila Ortiz DO - 05/22/2024 8:35 AM EDTAssociated Order(s): NEPHROLOGY CONSULT IP CONSULT - Nephrology [facility] [place]-[address] [address] Name: Fly De Luna Location: [facility] G200/A Date: 05/22/2024 Time: 8:35 AM REQUESTING SERVICE: Med Admit 1 REASON FOR CONSULT: "pt w esrd, HD cath placed for HD initiation at [facility]. s/p renal bx now w subcapsular hematoma" PROBLEM: PAGE Kidney HPI: 53 yo male with PMHx of CKD Stage IV, HTN, Hypothyroidism, HLD and Depression. Follows with Dr. Rose in OP setting. Was recently admitted for PNA and HTN urgency at [facility]. During that hospitalization his renal function continued to decline. A renal US revealed Right-10.6 cm and Left-10.5 cm k idneys, No focal lesions, hydronephrosis or calculus. ANCA panel was negative. A renal biopsy was performed on 05/17/2024 and results remain pending. Patient then represented for acute left sided abdominal pain. CT abd/pelvis on admission revealed 10.5 cm subcapsular hematoma of the left kidney. US doppler confirmed no active hemorrhage. With his worsening renal function, he had a RIJ TDC placed at the same time the renal biopsy. Since antibiotics were started for PNA the patient has noticed decreasing urine production. He denies any NSAID use. No family hx of renal disease. He endorses significant left sided abdominal pain. PAST MEDICAL HISTORY: Past Medical History: Diagnosis Date Depression Hypothyroidism PAST SURGICAL HISTORY: Past Surgical History: Procedure Laterality Date IR BIOPSY 05/17/2024 IR VENOUS ACCESS NON-MEDIPORT 05/17/2024 UMBIL HERNIA REPAIR (REDUCIBLE) AGE 5+YR ALLERGIES: Nsaids, Amoxicillin, and Penicillins FAMILY HISTORY: No family history on file. SOCIAL HISTORY: Social History Tobacco Use Smoking status: Never Smokeless tobacco: Never Vaping Use Vaping status: Never Used Substance Use Topics Alcohol use: Not Currently Comment: 2 beers a month Drug use: No ROS: History of NSAID: No History of exposure to IV contrast: No Denies any other symptoms, all other ROS are negative. PHYSICAL EXAMINATION: Most Recent Vital Signs: BP: 162 mmHg/106 mmHg (05/22/24 0750) Pulse: 72 (05/22/24 0750) Resp: 18 (05/22/24 075) Temp: 35.72 C (05/22/24 0750) Temp Summary: Temp Min: 35.7 C (96.3 F) Max: 35.7 C (96.3 F) SpO2: 99 % (05/22/24 0750) O2 flow rate: Supplemental O2 Delivery: Vital Signs Last 24 Hours: Systolic BP: Most Recent Systolic BP Av mmHg Min: 162 mmHg Max: 170 mmHg Temperature: Most Recent Temperature Av.72 C Min: 35.72 C Max: 35.72 C Pulse: Pulse Av Min: 68 Max: 72 Respirations: Resp Av Min: 18 Max: 18 SpO2: SpO2 Av % Min: 99 % Max: 99 % I/O Brief: Intake/Output Summary (Last 24 hours) at 05/22/2024 0835 Last data filed at 05/22/2024 0800 Gross per 24 hour Intake 100 ml Output -- Net 100 ml Drips: None General: In acute distress, laying prone in bed, pale Neuro: AOx3, no focal deficits appreciated, following commands, answers questions appropriately HEENT: Normocephalic and atraumatic, pupils are equal, round and reactive to light, moist mucous membranes CV: Regular rate and rhythm; no murmurs, no JVD, perfusing well, 2+ peripheral pulses Resp: normal respiratory effort, lungs clear to auscultation B/L, no wheeze, no crackles GI: bowel sounds present, abdomen is soft, tender to palpation over left abdominal wall, non distended, no masses on palpation MSK: ROM in tact, 5/5 B/L strength in extremities, no peripheral edema, TDC in place Skin: warm, dry and intact Psych: normal mood and affect LABS: Laboratory Values: reviewed. -- Brief labs below include the 7 most recent results over the past week. Blood Gas: No results in the last 7 days - inpatent use only Chemistry Panel: Lab results within last 7 days (see chart for full results) Units 05/22/24 0003 05/16/24 0839 Sodium mmol/L 134* 139 Potassium mmol/L 4.3 3.5 Chloride mmol/L 98 98 CO2 mmol/L 18* 23 BUN mg/dL 90* 73* Creatinine mg/dL 8.7* 7.7* Estimated Glomerular Filtration Rate mL/min 7* 8* Glucose mg/dL 142* 119 Calcium mg/dL 8.8 9.3 Magnesium mg/dL 3.0* -- Phosphorus mg/dL 6.5* -- Anion Gap mmol/L 18* 18* Complete Blood Count: Lab results within last 7 days (see chart for full results) Units 05/22/24 0758 05/22/24 0003 05/16/24 0839 WBC K/uL 10.04 12.04* 5.81 HGB g/dL 10.4* 10.8* 12.2* HCT % 33.9* 33.8* 37.8* PLT K/uL 188 174 207 MCV fL 96.3 94.9 94.0 Cardiac Studies: No results in the last 7 days - inpatent use only Coagulation Studies: Lab results within last 7 days (see chart for full results) Units 05/16/24 0839 Prothrombin Time seconds 16.0* INR 1.3* Liver Function Panel: Lab results within last 7 days (see chart for full results) Units 05/22/24 0003 Albumin g/dL 3.8 Protein g/dL 6.5 Bilirubin, Total mg/dL 1.5* Bilirubin, Direct mg/dL 0.3 AST U/L 63* ALT U/L 32 Alkaline Phosphatase U/L 46 Infectious Studies: Lab results within last 7 days (see chart for full results) Units 05/22/24 0157 Lactate mmol/L 1.1 Cultures: reviewed. No results in the last 7 days - inpatent use only Recent Cultures (2 Weeks) No lab values to display. Radiographic Studies (last 72 hours): reviewed. CTA ABD/PELVIS Result Date: 05/22/[address] abdomen/pelvis obtained earlier on 05/22/2024: Increased size of the large left perirenal hematoma with active hemorrhage into the left retroperitoneum from a probable smallpseudoaneurysm. Pulmonary edema in the lung bases and small bilateral pleural effusions. Critical Result: The information above was relayed directly by in via secure [employer] messaging to CAMILA ORTIZ on 05/22/2024 at 12:32 pm who expressed understanding. US ABDOMEN COMPLETE Result Date: 05/22/2024 IMPRESSION: There is a 10 cm subcapsular hematoma of the left kidney. No evidence for active hemorrhage on provided color Doppler images. THIS DOCUMENT HAS BEEN ELECTRONICALLY SIGNED BY CORNELIO HARMON MD CT ABD/PELVIS WO IV/ORAL CONTRAST Result Date: 05/22/2024 IMPRESSION: 1. 10.5 cm subcapsular hematoma of the left kidney. 2. There are bibasilar parenchymal consolidations which have a somewhat ground-glass appearance and correlation for viral or bacterial pneumonitis is suggested. THIS DOCUMENT HAS BEEN ELECTRONICALLY SIGNED BY CORNELIO HARMON MD IMPRESSION: This is a 53 year old male admitted 05/22/2024 for new subcapsular hematoma after renal biopsy at OSH with CTA evidence of active extravasation. Likely PAGE kidney causing increased RAAS system activation and some component of severe pain causing elevated blood pressure. His renal dysfunction suspect may be post obstructive due to compression of the enlarging hematoma. Fluid and Electrolyte Diagnoses: hyponatremia, hyperphosphatemia, hypermagnesemia and metabolic acidosis Kidney Associated Disorders: secondary hyperparathyroidism Acute renal failure due to: PAGE kidney RECOMMENDATIONS/PLAN: - Discussed with IR this AM regarding CTA, study ordered, revealed active extravasation of contrastfrom suspected pseudoaneurysm and enlarging hematoma, will plan for emergent arterial embolization today - Discussed with patient the risks of a contrasted study potentially causing progression to renal replacement therapies- he was agreeable - Given degree of renal dysfunction and contrast load, started on 75cc/hr 1/2 NSS + 75meq NaHCO3 for a total of 500cc - Patient may require higher level of care post procedure for close hemodynamic monitoring - Strict monitoring of I/Os - Avoid nephrotoxic medications - Renally dose medications Camila Ortiz, DO Internal Medicine, PGY-2 Associated attestation - Marely Saldaña MD - 05/22/2024 5:28 PM EDT I saw and evaluated the patient today. I have reviewed the resident/fellow physician note and agree. Nephrology was consulted for severe VENKAT on CKD 3 with labs revealing creatinine of 9.2 mg/dL, EGFR6 mL/minute, sodium 130, bicarb of 19 phosphorus of 8.5, the setting of CKD 3 baseline creatinine of 2.8 a month ago. Patient underwent kidney biopsy last month and has been having progressive kidneydysfunction. Presented with severe pain in the left side, CT imaging without IV contrast from 05/22/2024 showed a 10.5 subcapsular hematoma around the left kidney. Background history of longstanding hypertension, biopsy was done for unclear etiology of CKD last week. Discussed with IR twice, PT angiogram done, showed area of active bleeding within the kidney. Patient underwent emergent angio embolization. Patient was seen again in ICU, present. Blood pressure seemed to be better controlled. Secondary hypertension seen due to subcapsular hematoma due to activated Steve /increased renin. Continue to monitor for urine output. Need ongoing discussions with IR regarding any benefit in renal decompression by evacuation of the hematoma. Keep maps more than 65, transfuse if hemoglobin less than 7.Aim to salvage kidney function as much as possible before he is deemed for dialysis. We will continue to monitor closely. * Michael Heath MD - 05/22/2024 8:26 AM EDTAssociated Order(s): UROLOGY CONSULT IP CONSULT - Urology [facility]-[address] [address] Name: Fly De Luna Location: [facility] G200/A Date: 05/22/2024 Time: 8:26 AM ____ HPI: Fly De Luna is a 53 year old male with history of CKD 4, hypertension, and diastolic cardiac dysfunction (EF 65-70) admitted for severe left flank pain after renal biopsy seen in consultation for subcapsular renal hematoma. Patient underwent percutaneous renal biopsy and tunneled dialysiscatheter placement due to rapidly worsening renal function with Interventional Radiology on 05/17/2024. Yesterday around 10:00 p.m. he experienced sudden onset acute left flank pain that radiates around to left abdomen. The pain is severe, 10/[address] abdomen/pelvis reviewed. There appears to be a large subcapsular hematoma of the left kidney. Nohydronephrosis. This is a noncontrast study so difficult to assess renal vessels. Right kidney appears grossly normal with small amount of perinephric stranding, no hydronephrosis. Abdominal ultrasound was also obtained, no evidence for active bleeding based on color Doppler imaging. No significant urologic history per patient. No documented encounters with Urology. Patient reportsoliguria for some time now which correlates with timing of worsening renal function. Denies gross hematuria, dysuria, urgency, frequency, suprapubic fullness or pain. Prior to this episode, no flank pain. Per my review: Afebrile but relatively hypothermic with Tmin 35.7 C, systolics 160s-170s, otherwise hemodynamically stable. WBC 10 HGB 10.4, 12.2 pre-biopsy Cr 9.2 (baseline is quite variable, was 3.7 one month ago) UA with blood, bacteriuria, minimal pyuria. US ABDOMEN COMPLETE Result Date: 05/22/2024 IMPRESSION: There is a 10 cm subcapsular hematoma of the left kidney. No evidence for active hemorrhage on provided color Doppler images. THIS DOCUMENT HAS BEEN ELECTRONICALLY SIGNED BY CORNELIO HARMON MD CT ABD/PELVIS WO IV/ORAL CONTRAST Result Date: 05/22/2024 IMPRESSION: 1. 10.5 cm subcapsular hematoma of the left kidney. 2. There are bibasilar parenchymal consolidations which have a somewhat ground-glass appearance and correlation for viral or bacterial pneumonitis is suggested. THIS DOCUMENT HAS BEEN ELECTRONICALLY SIGNED BY CORNELIO HARMON MD Past Medical History: Diagnosis Date Depression Hypothyroidism Past Surgical History: Procedure Laterality Date IR BIOPSY 05/17/2024 IR VENOUS ACCESS NON-MEDIPORT 05/17/2024 UMBIL HERNIA REPAIR (REDUCIBLE) AGE 5+YR No family history on file. Social History Socioeconomic History Marital status: Spouse name: Not on file Number of children: Not on file Years of education: Not on file Highest education level: Not on file Occupational History Not on file Tobacco Use Smoking status: Never Smokeless tobacco: Never Vaping Use Vaping status: Never Used Substance and Sexual Activity Alcohol use: Not Currently Comment: 2 beers a month Drug use: No Sexual activity: Not on file Other Topics Concern Not on file Social History Narrative Not on file Social Determinants of Health Financial Resource Strain: Low Risk (04/26/2024) Financial Resource Strain Do you have any trouble paying for your medications, or do you think you might in the future? (Adult - for ages 18 years and over): No Does your family have trouble paying for medicine? (Household - for ages 0-17 years): Not on file Food Insecurity: No Food Insecurity (04/26/2024) Food Insecurity Do you need food for this week? (Adult - for ages 18 years and over): No Are you able to get enough food for your family? (Household - for ages 0-17 years): Not on file Does your family need food this week? (Household - for ages 0-17 years): Not on file Do you always have enough food for your family? (Household - for ages 0-17 years): Not on file Transportation Needs: No Transportation Needs (04/26/2024) Transportation Needs Do you have trouble getting a ride to medical visits or work? (Adult - for ages 18 years and over):Not on file Does your family have a hard time getting a ride to doctors visits? (Household - for ages 0-17 years): Not on file Has lack of transportation kept you from medical appointments, meetings, work, or from getting things needed for daily living? Check all that apply. (Adult - for ages 18 years and over): No Do you (or your family) have trouble finding or paying for a ride (transportation)? (Household - for ages 0-17 years): Not on file Social Connections: Socially Integrated (04/26/2024) Social Connections How often do you feel lonely or isolated from those around you? (Adult - for ages 18 years and over): Rarely Housing Stability: Low Risk (04/26/2024) Housing Stability Do you currently live in a senior care or have no steady place to sleep at night? (Adult - for ages 18 years and over): No Do you think you are at risk of becoming homeless? (Adult - for ages 18 years and over): Not on file Does your family worry about paying for your home or becoming homeless? (Household - for ages 0-17 years): Not on file Are you homeless or worried that you might be in the future? (Adult - for ages 18 years and over): No Are you (or your family) homeless or worried that you might be in the future? (Household - for ages0-17 years): Not on file Current Facility-Administered Medications Medication Dose Route Frequency Provider oxyCODONE (Oxy IR) tab 5 mg 5 mg Oral Q6H PRN Vikas Agosto MD sodium chloride 0.9 % flush/inj 3 mL 3 mL IV Push PRN Vikas Agosto MD Review of patient's allergies indicates: Allergen Reactions Nsaids Edema face/lips/tongue Amoxicillin Hives Penicillins Hives REVIEW OF SYSTEMS: Per HPI otherwise negative PHYSICAL EXAMINATION: BP 162/106 | Pulse 72 | Temp 35.7 C (96.3 F) (Tympanic) | Resp 18 | Ht 1.879 m (6' 1.98") | Wt 106.7 kg (235 lb 3.7 oz) | SpO2 99% | BMI 30.22 kg/m | BSA 2.36 m Constitutional: alert, moderate distress due to pain HEENT: normocephalic, atraumatic Eyes: No scleral icterus Neck: No tracheal deviation Cardiovascular: Normal rate Respiratory: Non-labored breathing on room air Abdomen: soft, non-tender, non-distended, no masses Skin: No obvious rashes or lesions Neurological: No gross focal deficits Psychiatric: Normal mood and affect Genitourinary: Severe left flank tenderness, no ecchymosis or palpable masses, no right flank tenderness LABS: CBC Lab results within last 7 days (see chart for full results) Units 05/22/24 0003 05/16/24 0839 WBC K/uL 12.04* 5.81 HGB g/dL 10.8* 12.2* HCT % 33.8* 37.8* PLT K/uL 174 207 BMP Lab results within last 7 days (see chart for full results) Units 05/22/24 0003 05/16/24 0839 Sodium mmol/L 134* 139 Potassium mmol/L 4.3 3.5 Chloride mmol/L 98 98 CO2 mmol/L 18* 23 BUN mg/dL 90* 73* Creatinine mg/dL 8.7* 7.7* Glucose mg/dL 142* 119 Ca, Mg, Phos Lab results within last 7 days (see chart for full results) Units 05/22/24 0003 05/16/24 0839 Calcium mg/dL 8.8 9.3 Magnesium mg/dL 3.0* -- Phosphorus mg/dL 6.5* -- Hepatic Function Panel Lab results within last 7 days (see chart for full results) Units 05/22/24 0003 Bilirubin, Total mg/dL 1.5* Bilirubin, Direct mg/dL 0.3 Alkaline Phosphatase U/L 46 AST U/L 63* ALT U/L 32 Protein g/dL 6.5 Lipase Lab results within last 7 days (see chart for full results) Units 05/22/24 0003 Lipase U/L 101* Troponins No lab exists selected component "HSTNT" Coags Lab results within last 7 days (see chart for full results) Units 05/16/24 0839 INR 1.3* Lactic acid Lab results within last 7 days (see chart for full results) Units 05/22/24 0157 Lactate mmol/L 1.1 Arterial Blood Gas No results in the last 7 days - inpatent use only IMAGING: US ABDOMEN COMPLETE Result Date: 05/22/2024 IMPRESSION: There is a 10 cm subcapsular hematoma of the left kidney. No evidence for active hemorrhage on provided color Doppler images. THIS DOCUMENT HAS BEEN ELECTRONICALLY SIGNED BY CORNELIO HARMON MD CT ABD/PELVIS WO IV/ORAL CONTRAST Result Date: 05/22/2024 IMPRESSION: 1. 10.5 cm subcapsular hematoma of the left kidney. 2. There are bibasilar parenchymal consolidations which have a somewhat ground-glass appearance and correlation for viral or bacterial pneumonitis is suggested. THIS DOCUMENT HAS BEEN ELECTRONICALLY SIGNED BY CORNELIO HARMON MD IMPRESSION: 53 year old male with acute on chronic renal failure seen in consultation for post-renal biopsy subcapsular renal hematoma. Hemodynamically stable, hemoglobin slowly downtrending but still within normal limits, pre-biopsy 12.2, now 10.4. RECOMMENDATIONS: - no acute urologic intervention - close monitoring of hemoglobin, transfuse as needed - if patient were to become hemodynamically unstable or continues to require repeated transfusions,would recommend CTA abdomen/pelvis to assess for any active bleeding - dialysis coordination and management with Nephrology - rest of care per primary team Thank you for this consult. Please page the on-call Urology provider for any questions or concerns Patient to be discussed with Dr. Heath. Aamir Christensen MD 05/22/2024 8:33 AM Attending addendum I have discussed the patient's management with the medical trainee and agree with the note. Please refer to the documented findings and plan of care. The patient's service consisted of an evaluation.I have seen and evaluated the patient. Michael Heath MD 05/22/2024 3:28 PM documented in this encounter Nursing Notes * Taylor Jane I, RN - 05/28/2024 11:54 AM EDT POST ASSESSMENT COMMUNICATION NOTE - HEMODIALYSIS Attention to: A546 staff nurse Patient arriving via: Bed Time of Call: 11:56 AM Phone Ext.: [phone] Reason for SBAR handoff: Postdialysis treatment. Treatment: Prescribed treatment time: 3.5 hrs Duration of Treatment (minutes): 212 minutes (05/28/24 1140) Dialysis Treatment Less than Prescribed: NO Prescribed UF: 2 - 3 L Dialysis: 3200 ml (05/28/24 1145) Reason prescribed UF was not achieved: n/a Blood Returned: Yes Potassium Bath: As ordered for entire treatment, 3K+ 2.5 Ca Post Dialysis Vitals: Temp: 37.6 C (99.7 F) (05/28/24 1140) Pulse: 72 (05/28/24 1140) Resp: 20 (05/28/24 114) SpO2: 100 % (05/28/24799) O2 flow rate: 2 L/MIN (05/24/24 0958) Supplemental O2 Delivery: Room Air, None (05/28/24 114) Pain Assessment Flowsheet Row Most Recent Value [facility]10 Pain Score 0 (no pain) Pre BP Sitting: (!) 157/101 (05/28/24 08) Post BP Sittin/83 (05/28/24 114) Pre-Treatment Weight: 114.8 kg (253 lb 1.4 oz) (05/28/24 08) Post-Treatment Weight: 111.6 kg (246 lb 0.5 oz) (05/28/24 114) Treatment Weight Change (kg): -3.2 kg (05/28/241139) Medications administered, see MAR/flowsheets for further information: None Access: Dialysis catheter, RIJ (Right internal jugular)locked with Citrate Function: No problems Date/time to remove pressure dressing: n/a Dialysis Tx Tolerance: Tolerated well (05/28/241139) Patient educated on: Signs and symptoms to report to staff Additional patient needs/interventions during treatment: N/A No bleeding from dialysis access. Dialysis catheter functioned normally, locked per order. Report called to A546 staff nurse. Patient transported to floor in stable condition. * Lori Jensen LPN - 05/26/2024 11:26 AM EDT POST ASSESSMENT COMMUNICATION NOTE - HEMODIALYSIS Attention to: Rama DE DIOS Patient arriving via: Bed Time of Call: 11:26 AM Phone Ext.: [phone] Reason for SBAR handoff: Postdialysis treatment. Treatment: Prescribed treatment time: 3 hours Duration of Treatment (minutes): 183 minutes (05/26/241121) Dialysis Treatment Less than Prescribed: NO Prescribed UF: 1L as tolerated. Dialysis: 1600 ml (05/26/241121) Reason prescribed UF was not achieved: n/a, achieved. Blood Returned: Yes Potassium Bath: As ordered for entire treatment, 3K+ 2.5 Ca Post Dialysis Vitals: Temp: 36.9 C (98.4 F) (05/26/241121) Pulse: 69 (05/26/241121) Resp: 20 (05/26/241121) SpO2: 100 % (05/26/241121) O2 flow rate: 2 L/MIN (05/24/2458) Supplemental O2 Delivery: Room Air, None (05/26/241121) Pain Assessment Flowsheet Row Most Recent Value [facility] 0-10 Pain Score 0 (no pain) Pre BP Sittin/85 (05/25/24 1155) Post BP Sittin/86 (05/26/241121) Pre-Treatment Weight: 115.5 kg (254 lb 10.1 oz) (05/26/24 0816) Post-Treatment Weight: 114.3 kg (251 lb 15.8 oz) (05/26/241121) Treatment Weight Change (kg): -1.2 kg (05/26/241121) Medications administered, see MAR/flowsheets for further information: Blocked catheter with citrate/cath kristian Access: Dialysis catheter, RIJ (Right internal jugular)locked with Citrate Function: No problems Date/time to remove pressure dressing: n/a Dialysis Tx Tolerance: Tolerated well (05/26/241121) Patient educated on: Catheter Care and Signs and symptoms to report to staff Additional patient needs/interventions during treatment: N/A Dialysis catheter functioned normally, locked per order. * Tegan Villarreal RN - 05/25/2024 2:47 PM EDT POST ASSESSMENT COMMUNICATION NOTE - HEMODIALYSIS Attention to: primary nurse Patient arriving via: Bed Reason for SBAR handoff: Postdialysis treatment. Treatment: Prescribed treatment time: 2.5 hours Duration of Treatment (minutes): 154 minutes (05/25/241433) Dialysis Treatment Less than Prescribed: NO Prescribed UF: 0.5-1 Dialysis: 700 ml (05/24/24 1000) Reason prescribed UF was not achieved: n/a Blood Returned: Yes Potassium Bath: As ordered for entire treatment, 3K+ 2.5 Ca Post Dialysis Vitals: Temp: 37.5 C (99.5 F) (05/25/241433) Pulse: 78 (05/25/241433) Resp: 18 (05/25/241433) SpO2: 100 % (05/25/241433) O2 flow rate: 2 L/MIN (05/24/24957) Supplemental O2 Delivery: Room Air, None (05/25/241433) Pain Assessment Flowsheet Row Most Recent Value [facility] 0-10 Pain Score 0 (no pain) Pre BP Sittin/85 (05/25/24 1155) Post BP Sittin/90 (05/25/241433) Pre-Treatment Weight: 111.4 kg (245 lb 9.5 oz) (05/25/241433) Post-Treatment Weight: 110.2 kg (242 lb 15.2 oz) (05/25/241433) Treatment Weight Change (kg): -1.2 kg (05/25/241433) Medications administered, see MAR/flowsheets for further information: Blocked catheter with citrate/cath kristian Access: Dialysis catheter, RIJ (Right internal jugular)locked with Citrate Function: No problems Dialysis Tx Tolerance: Tolerated well (05/24/24 09) Patient educated on: Signs and symptoms to report to staff Additional patient needs/interventions during treatment: N/A Dialysis catheter functioned normally, locked per order. Patient returned to room in stable condition. * Tegan Villarreal RN - 05/24/2024 10:29 AM EDT POST ASSESSMENT COMMUNICATION NOTE - HEMODIALYSIS Attention to: primary nurse Patient arriving via: Bed Reason for SBAR handoff: Postdialysis treatment. Treatment: Prescribed treatment time: 2 hours Duration of Treatment (minutes): 122 minutes (05/24/24957) Dialysis Treatment Less than Prescribed: NO Prescribed UF: net even, then increased to [address] Saldaña Dialysis: 700 ml (05/24/24 1000) Reason prescribed UF was not achieved: n/a removed 700 ml Blood Returned: Yes Potassium Bath: As ordered for entire treatment, 3K+ 2.5 Ca Post Dialysis Vitals: Temp: (P) 37.1 C (98.8 F) (05/24/24 1020) Pulse: 83 (05/24/24 1020) Resp: 10 (05/24/24 1020) SpO2: 97 % (05/24/24 1020) O2 flow rate: 2 L/MIN (05/24/24957) Supplemental O2 Delivery: Nasal Cannula (05/24/24957) Pain Assessment Flowsheet Row Most Recent Value [facility] 0-10 Pain Score 0 (no pain) Pre BP Sitting: (!) 175/99 (05/24/24 0752) Post BP Sitting: (!) 168/106 (05/24/24957) Pre-Treatment Weight: 112.6 kg (248 lb 3.8 oz) (05/24/24957) Post-Treatment Weight: 111.9 kg (246 lb 11.1 oz) (05/24/24957) Treatment Weight Change (kg): -0.7 kg (05/24/24957) Medications administered, see MAR/flowsheets for further information: Blocked catheter with citrate/cath kristian Access: Dialysis catheter, RIJ (Right internal jugular)locked with Citrate Function: No problems Dialysis Tx Tolerance: Tolerated well (05/24/24 09) Patient educated on: Catheter Care and Signs and symptoms to report to staff Additional patient needs/interventions during treatment: N/A Dialysis catheter functioned normally, locked per order. Patient returned to room in stable condition. * Sandra Rodriguez RN - 05/22/2024 5:00 PM EDT Late entry Dual Licensed Skin Assessment completed by Sandra Rodriguez RN and Cr Villarreal RN. The patient is/has a N/A Skin Breakdown (includes non blanchable erythema): No * Carito Hernandez RN - 05/22/2024 12:40 PM EDT liaison inspection laboratory assistant note Name: Fly De Luna Date: 05/22/2024 Time: 12:27 PM Procedure: Angiogram with Possible Intervention of Left Renal Bleed Patient ID band checked using two identifiers. Patient placed on procedure table, supine position, with comfort measures intact and safety strap in place. Hemodynamic monitoring placed and initiated.Distal pulses palpable and marked. Patient denies any current complaints at current time. RT staff prepares and preps for procedure. Reevaluation statement: RN received verbal confirmation that the patient was reevaluated by Dr. Adam Arias immediately prior to the sedation at 12:27 PM. 12:27 PM 1 mg Versed and 50 mcg Fentanyl given for patient comfort. 12:43 PM Patient prepped and ready. 12:47 PM Timeout performed by Dr. Adam Arias. 12:48 PM Procedure started by Dr. Adam Arias, and scrubbed RT Shana samuel for anatomical analysis of patient and access needle guidance. 1% buffered lidocaine given by doctor at right groinsite. 12:51 PM Access obtained. Guidewire inserted. Images obtained. 12:[address] Janie Nath scrubbed into case. 12:55 PM 50 mcg Fentanyl given for patient comfort. 1:00 PM Imaging continues. Vital signs stable. 1:01 PM 100 mcg Nitroglycerin given via right groin access by Dr. Arias. 1:08 PM 0.5 mg Dilaudid given for patient comfort. 1:29 PM 1 mg Versed and 50 mcg Fentanyl given for patient comfort. 1:30 PM Imaging continues. Patient resting comfortably, vital signs stable. 2:00 PM Imaging continues. Patient resting comfortably, vital signs stable. 2:30 PM Imaging continues. Patient resting comfortably. 2:35 PM 1 mg Versed and 50 mcg Fentanyl given for patient comfort. 2:40 PM Selective embolization with imaging by doctor, see Implant Record. 2:48 PM Gelfoam injected via right groin access by Dr. Arias. 2:59 PM Mynx closure device placed. 5 German. LOT [id number]. EXP 12-17-2025. Access removed and manual pressure to site. 3:07 PM Hemostasis obtained. Area cleaned. Gauze and Tegaderm dressing applied. Distal pulse unchanged. Patient tolerated procedure well without complications. All wires, catheters, sheaths and other devices have been inspected prior to the procedure for damage. This has been confirmed by the scrubbed RT and the operating physician. All items not intended to remain in the patient have been inspected, accounted for and have been removed from the patient atthe end of the procedure. This has been confirmed by the scrubbed RT and the operating physician. Pt did receive conscious sedation for their procedure, and was sedated from 12:27 PM to 3:18 PM. Total medications given Versed: 3 mg Fentanyl: 200 mcg Dilaudid: 0.5 mg Nitroglycerin: 100 mcg 1% buffered lidocaine: 3 mL Please see doctor's operative note for additional details. * Abiola Alvarez RN - 05/22/2024 12:13 PM EDT Report given to IR via telephone * Missy Cagle RN - 05/22/2024 11:58 AM EDT SBAR FOR PRE INTERVENTIONAL RADIOLOGY PROCEDURE Patient Name: Fly De Luna Age:[age] year old Room: [facility]/A Safety Concerns: None Allergies: Nsaids, Amoxicillin, and Penicillins Code Status: Code Status: Full Code Isolation: Isolation flowsheet: None Report from: Anaya Patient arriving via: Bed or Stretcher Reason for SBAR handoff: Procedure/Diagnostic/Treatment Situation/Background Admission date: 05/22/2024 Patient Service: Medicine Admit 1 [[id number]] Attending Provider: Deric La MD Admitting diagnosis: Renal failure Hematoma of left kidney Renal hematoma Chief Complaint: No chief complaint on file. Problem list: Active Problems: Renal hematoma, left ESRD (end stage renal disease) (HCC) Abdominal pain Resolved Problems: * No resolved hospital problems. * Level of Care: Med Surg [3] Vital Signs: BP: 174/104 (05/22/24 1110) Temp: 35.7 C (96.3 F) (05/22/24 1110) Pulse: 65 (05/22/24 1110) Resp: 18 (05/22/24 1110) SpO2: 98 % (05/22/24 1110) Weight: 106.7 kg (235 lb 3.7 oz) (05/22/24 0500) Height: 187.9 cm (6' 1.98") (05/22/24 0500) * Tito Bauman RN - 05/22/2024 6:33 AM EDT Assumed care of this patient, he is a transfer from [facility]. Patient is alert and oriented, C/O back and abd pain 06/28. BP 170/102 manually. He is on room air , O2 sat 95%. He is afebrile. Patient sent to [facility] for worsening of acute kidney injury. Patient is not in any respiratory distress. Med adm notified. Will continue to monitor. Dual RN skin assessment performed, skin is warm , clean and intact. * Lillie Gregory RN - 05/22/2024 5:57 AM EDT VIRTUAL RN [facility]-[address] [address] Name: Fly De Luna Location: [facility] G200/A Date: 05/22/2024 Time: 5:57 AM I completed the Admission Navigator. The patient was in the hospital. I was not in a hospital or clinic location. After connecting through [employer], the patient was identified by name and date of and / or wristband checked. Patient (or authorized legal b2b outside sales representative) was then informed that this was a Virtual Nurse visit and was being conducted confidentially over secure lines. I used a headset and other methods to ensure confidentiality for the patient. Patient acknowledged consent and understanding of privacy and security of the Virtual Nurse visit. I presented the opportunity for the patient or authorized legal b2b outside sales representative to ask any questions regarding the visit today. The patient or authorized legal b2b outside sales representative agreed to participate. documented in this encounter Miscellaneous Notes * Ancillary Progress Note - Stephanie Mcpherson RN - 05/28/2024 2:06 PM EDT CARE MANAGEMENT - ADULT DISCHARGE NOTE [address] [address] Name: Fly De Luna Location: [facility] A546/A Date: 05/28/2024 Time: 2:06 PM The following coordination of care and discharge plan has been coordinated with the care team, patient, family and/or caregiver according to the patients needs and preferences. Discharge Discharge Second Notice Important Message from Medicare delivered: Not Applicable (05/28/24 1102) Discharge Transportation: Family/Friends drive;Personal Vehicle;County Transportation (05/28/24 1102) Final Discharge Plan (Complete only at time of Discharge): Home - Self Care (05/28/24 1405) Narrative: Fly is discharging home with [facility] 0502 with transportation provided by Ebony. * Ancillary Progress Note - Stephanie Mcpherson RN - 05/28/2024 11:06 AM EDT CARE MANAGEMENT - ADULT TRANSITION NOTE [address] [address] Name: Fly De Luna Location: [facility] A546/A Date: 05/28/2024 Time: 11:06 AM Risk Stratification Risk Stratification Psycho Social / Medical Concerns Identified: Adjustment to illness/injury (05/22/24 1026) Accessed [employer] to connect patients to social care resources: No (05/22/24 1026) OBRA or OPTIONS needed for placement: No (05/22/24 1026) Readmission Risk Score: 14.46 (05/28/24 0801) AM-PAC Score With Stairs : 24 (05/27/24 1900) Caregiver Information Patient Contacts Name Relation Home Work Mobile BettyEbony reid Significant Other [phone] Marcel De Luna Adult Child [phone] Transition of Care Checklist Transition of Care Checklist (aka Readmission Risk Score) Discharge Disposition: Home (05/28/24 1102) Home or Home w/Home Health: Moderate (12-17%) (05/28/24 1102) Narrative: CM has been following Fly's hospital course. Patient discussed in IDT rounds. [facility] is the planned dialysis Center. Spoke with Alexsandra, clinical dietitian. She reports that the time offered does not meet with the clinic availability. Also, the medical directorstill needs to approve and she needs to see if the rounding physician will accept Fly as a patient. Discussed with her that [facility] to be sent for the medical team to fill out. Alexsandra is going to check with them to see if they can do a 5:50 am chair time. On MWF or they may have to switch to a TTS. CM will have to confirm with Ebony that she can provide the transportation on Tuesday. Discharge plan evolving as above - CM will continue to follow for discharge needs. 1321: Spoke with MELE Beck. She tells me that she can the provide transportation for MWF 0550 chair time. Confirmed with Alexsandra @ [facility] that Fly can start on Tuesday. Service updated. Anticipated Transportation at Discharge: family for home, [facility] for dialysis Patient/Family Expectations: home with HD services. Transition Planning Transition Planning Transition Plan/Considerations: CM provided contact information and will update plan as needs arise;Needs uncertain at this time - Continue monitoring for needs;Needs identified - Discharge planning services explained to patient family / caregiver - Choices offered (05/28/24 110) Transition services explained and patient/family/caregiver agreeable: Return to home with OP services (05/28/24 110) [facility] Quality Rating provided to patient: No (05/28/24 110) Repisodic Choice provided to patient: No (05/28/241101) Transition plan discussed with - Enter name and phone #: [facility] - Alexsandra (05/28/24 110) Referral to Community Agency : [facility] Office - Comment (05/24/24 1347) Post-Acute Care needs identified and Referrals Completed: Dialysis (05/28/24 110) Agency Choice Due to: Other - Comment (prefers [facility]) (05/24/24 1347) Additional Considerations: Care Management will continue to monitor and assist with discharge planning needs * Ancillary Progress Note - Dara Carnes OTR/L - 05/28/2024 10:47 AM EDT Attempted to see pt for OT treatment however pt off floor to dialysis. Will attempt as able. * Ancillary Progress Note - Katie Barragan PT - 05/28/2024 10:46 AM EDT Attempted to see pt for PT treatment however pt off the floor at dialysis. Will attempt at a later time when pt is available. * Care Plan - Sandra Kingsley RN - 05/28/2024 4:51 AM EDT Clinical Goal(s): SBP <160 throughout shift (05/27/24 2300) Possible barriers to meeting goal(s)/advancing plan of care: Malignant HTN Stability of the patient: Moderately stable - low risk of patient condition declining or worsening Summary regarding today's goal(s): Met: SBP<160 throughout shift Recommendations: Continue with medications & Dialysis as orders * Ancillary Progress Note - Luis Rodriguez LSW - 05/27/2024 9:22 AM EDT CARE MANAGEMENT - ADULT TRANSITION NOTE [facility]-[address] [address] Name: Fly De Luna Location: [facility] A546/A Date: 05/27/2024 Time: 9:22 AM Risk Stratification Risk Stratification Psycho Social / Medical Concerns Identified: Adjustment to illness/injury (05/22/24 1026) [facility] to [facility] care resources: No (05/22/24 1026) OBRA or OPTIONS needed for placement: No (05/22/24 1026) Readmission Risk Score: 14.56 (05/27/24 0801) AM-PAC Score With Stairs : 24 (05/27/24 0800) Caregiver Information Patient Contacts Name Relation Home Work Mobile Ebony Brown Significant Other [phone] HuedoroteoMarcel Adult Child [phone] Transition of Care Checklist Transition of Care Checklist (aka Readmission Risk Score) Discharge Disposition: Home (05/24/24 1347) Home or Home w/Home Health: Moderate (12-17%) (05/24/24 1347) Narrative: SW received message from team that patient is ready for discharge and wanted to confirm OP dialysis was set up. Previous care management notes indicates that patient was accepted @ [facility] for MWF 1045 chair time; however, no start indicated. There is mention of patient needing 3 sessions of HD before d/c - had 3rd session yesterday. SW made service aware of chair time/date. This SW did attempt to call [facility], however, office closed and will re-open tomorrow. Service updated. Care management to continue to follow and to call dialysis clinic tomorrow to confirm d/c. Anticipated Transportation at Discharge: family Patient/Family Expectations: return to home w/ family support & new HD set up Transition Planning Transition Planning Transition Plan/Considerations: CM provided contact information and will update plan as needs arise;Needs identified - Discharge planning services explained to patient family / caregiver - Choices offered;Discussed at Interdisciplinary Team / Boost Rounds (05/24/241346) Transition plan discussed with - Enter name and phone #: primary care (05/24/241346) Referral to Community Agency : [facility] Assistance Office - Comment (05/24/241346) Post-Acute Care needs identified and Referrals Completed: Dialysis (05/24/241346) Agency Choice Due to: Other - Comment (prefers [facility]) (05/24/241346) Additional Considerations: -- Care Management will continue to monitor and assist with discharge planning needs * Ancillary Progress Note - Aaliyah ePrrin RDN - 05/25/2024 3:50 PM EDT CLINICAL NUTRITION CONSULT/PROGRESS NOTE [facility] [address] Name: Fly De Luna Location: [facility] A546/A Date: 05/25/2024 Time: 4:21 PM How patient was identified (select 2): Wristband, Medical record number, date, and Name Discussed in interdisciplinary rounds: No Fly De Luna is a 53 year old male being seen for follow-up Primary Diagnosis: Admitted with abdominal pain, renal hematoma - hx of HTN, CKD3. Had IR embolization of subcapsular hematoma after renal biopsy, currently oliguric VENKAT on CKD III likely obstructivedue to compression hematoma. Other pertinent information: Patient eating at time of visit, had just returned from dialysis. Currently undergoing intermittent HD. He is making some urine. Talked with patient and his about some foods higher in potassium and phosphorus. Encouraged him to order his meals. Appetite has been decreased for at least a week. Usually he eats a regular diet with no food allergies. UBW of 102.3-104.5 kg. No N/V, was having some constipation with bm today. NUTRITION ASSESSMENT: Past medical/surgical history and medications reviewed. Food/Nutrition-Related History Nutrition Support: Diet: 1500 ml Fluid Restriction Renal Dialysis Adult Previously followed diet: regular Food Allergies/Intolerances: none Adult Energy Intake: Less than 75% of estimated energy requirement for greater than 7 days (moderate, acute illness). Percentage of meal intake: 25-50% Pertinent medications/vitamins/minerals/supplements: Vitamin D3, levoxyl, miralax, senokot-s, renvela Pertinent Biochemical Data: Latest Reference Range & Units 05/24/24 05:59 05/25/24 03:43 Phosphorus 2.5 - 4.8 mg/dL 9.2 (H) 7.3 (H) (H): Data is abnormally high Started on renvela Nutrition-Focused Physical Findings: Appearance: WNWD Respiratory support: Supplemental O2 Delivery: Room Air, None Nasal/Oral: No issues identified Digestive: No issues identified Last Bowel Movement: 05/25/24 (05/25/24 1100) Cognition: Awake, alert and Oriented Skin: Intact Enteral access: N/A Nutrition Focused Physical Exam: NFPE completed on 05/25/2024 Subcutaneous Fat Loss: Tricep: WNL Rib: WNL Muscle Loss: Clavicles: WNL Shoulders: WNL Quadriceps: WNL Anthropometrics Measurements Height: 187.9 cm (6' 1.98") (05/22/24 0500) Admission weight: 106.7 kg Weight: 107.3 kg (236 lb 8.9 oz) (05/23/24 0600) BMI: 30.22 (05/22/24 0500) Usual Body Weight: 102-104 kg per patient [place] weight: 88 kg [place] Weight Based on BMI: 24.9 Interpretation of Weight Change Prior to Admission: No recent/significant weight change Weight Changes Since Admission: slight gain due to edema Nutrition Prescription: Energy needs: 20-25 Kcal/kg Kcal/day: 4876-7510 Based on last known usual weight- 102 kg Protein needs: 1.0-1.2 gm/kg Protein: 102-122 Based on last known usual weight Fluid needs: Urine output + 1000 ml ml/kg Malnutrition: Malnutrition Present: No (05/25/241641) Adult Malnutrition Classification: N/A (05/25/241641) NUTRITION DIAGNOSIS: Suboptimal energy intake related to acute illness/renal hematoma as evidenced by reported decreasedappetite and intake. Increased protein needs related to HD as evidenced by standards of practice. Goals: Patient to consume greater than 75 % of daily meals within 5 days. NUTRITION INTERVENTION/PLAN: Continue current care plan Clinical Nutrition Recommendations: Diet: Continue current nutrition plan NUTRITION MONITORING AND EVALUATION: Nursing documentation flowsheets for percent meal intake Lab values warranting change with MNT Weight for trends Plan follow-up: Will follow and adjust nutrition plan of care as medical condition requires. Please contact for change(s) in patient condition requiring earlier intervention. Aaliyah Perrin RDN, TIFFANY RICH Clinical Dietitian Phone [phone] Tigertext * Ancillary Progress Note - Alesha Andrews RN - 05/24/2024 1:49 PM EDT CARE MANAGEMENT - ADULT TRANSITION NOTE [facility]-[address] [address] Name: Fly De Luna Location: [facility] A546/A Date: 05/24/2024 Time: 1:49 PM Risk Stratification Risk Stratification Psycho Social / Medical Concerns Identified: Adjustment to illness/injury (05/22/24 1026) [facility]: No (05/22/24 1026) OBRA or OPTIONS needed for placement: No (05/22/24 1026) Readmission Risk Score: 13.95 (05/24/24 1201) AM-PAC Score With Stairs : 20 (05/24/24 1020) Caregiver Information Patient Contacts Name Relation Home Work Mobile RobbyestherEbony Significant Other [phone] Marcel De Luna Adult Child [phone] Transition of Care Checklist Transition of Care Checklist (aka Readmission Risk Score) Discharge Disposition: Home (05/24/24 1347) Home or Home w/Home Health: Moderate (12-17%) (05/24/24 1347) Narrative: Per primary care in IDTs, patient not medically stable for discharge. First dialysis today. Monitor labs Spoke with patient regarding outpatient dialysis. Patient prefers [facility]. [facility] Information also faxed. Spoke with [facility] Transportation. They are able to transport to , $45 roundtrip. Community Chest Officer is looking into disability program for patient which will be $4.50 roundtrip. She will call me, contact info provided. Spoke with [facility] , patient has a MWF chair at 10:45AM at [facility]. Ebony, SO will assist with [facility] Transportation application. Information provided. [employer] resource card given to patient. [place] community application given to patient. Will continue to follow for discharge path, needs, and planning. Anticipated Transportation at Discharge: family Patient/Family Expectations: home Transition Planning Transition Planning Transition Plan/Considerations: CM provided contact information and will update plan as needs arise;Needs identified - Discharge planning services explained to patient family / caregiver - Choices offered;Discussed at Interdisciplinary Team / Boost Rounds (05/24/241346) Transition plan discussed with - Enter name and phone #: primary care (05/24/241346) Referral to Community Agency : [facility] Office - Comment (05/24/241346) Post-Acute Care needs identified and Referrals Completed: Dialysis (05/24/241346) Agency Choice Due to: Other - Comment (prefers [facility]) (05/24/241346) Additional Considerations: Care Management will continue to monitor and assist with discharge planning needs * Ancillary Progress Note - Nona Payne RN - 05/23/2024 10:44 AM EDT CARE MANAGEMENT - ADULT TRANSITION NOTE [facility]-[address] [address] Name: Fly De Luna Location: [facility] A546/A Date: 05/23/2024 Time: 10:44 AM Risk Stratification Risk Stratification Psycho Social / Medical Concerns Identified: Adjustment to illness/injury (05/22/24 102) Accessed [employer] to connect patients to social care resources: No (05/22/241025) OBRA or OPTIONS needed for placement: No (05/22/241025) Readmission Risk Score: 13.51 (05/23/24 08) AM-PAC Score With Stairs : 18 (05/23/24 08) Caregiver Information Patient Contacts Name Relation Home Work Mobile Ebony Brown Other - (no specific identity) [phone] Marcel De Luna Adult Child [phone] Transition of Care Checklist Narrative: CM present for IDTs. Close follow for H/H and Bp. CM will continue to follow should pt require additional needs closer to time of dc. Anticipated Transportation at Discharge: family Patient/Family Expectations: home Transition Planning Care Management will continue to monitor and assist with discharge planning needs * Communication - Yenny Green MD - 05/22/2024 12:04 PM EDT INTERVENTIONAL RADIOLOGY BRIEF NOTE IR was consulted for left renal subcapsular hematoma causing Page kidney. Chart and related images reviewed. Spoke with insights analyst, Dr. Marely Saldaña in person. Patient had percutaneous renal biopsyat OSH on 05/17. Patient today with severe flank pain and subcapsular hematoma on non-con CT. Hgb continues to trend down. Looking at the biopsy images, we recommended obtaining CTA to r/o vessel injury. At this time, benefit outweighs risk of further worsening kidney function. Dr. Saldaña agreeed and ordered CTA, which shows active extrav in the left kidney, likely at the site of biopsy. We will bring patient to IR for emergent angio and embo. Please contact IR with any questions/concerns. Discussed with attending first responder Dr. Arias. Electronically signed: Yenny Green MD IR/DR resident. * Communication - Marely Saldaña MD - 05/22/2024 11:32 AM EDT Nephrology has been consulted for severe VENKAT on CKD 3, post renal biopsy done on 05/17/2024. CT scan without IV contrast from 05/22/2024 reveals a 10.5 subcapsular hematoma around the left kidney. Labs show creatinine of 9.2, EGFR of 6 mL/minute. 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 Discussed with IR, recommended CT angiogram. CT angiogram reviewed withIR again-concern for active bleeding. Patient needs emergent angio-embolization. Secondary hypotension seen due to subcapsular hematoma causing renin secretion. Discussed with primary care team attending, patient needs to be shifted to ICU postprocedure. * Ancillary Progress Note - Hanh Neville RN - 05/22/2024 10:27 AM EDT CARE MANAGEMENT - ADULT INITIAL SCREENING [facility]-[address] [address] Name: Fly De Luna Location: [facility] G200/A Date: 05/22/2024 Time: 10:27 AM Discussed patient with the interdisciplinary care team. This Brake Assembler performed a chart review and met with Fly at bedside to complete admission screen and assessed needs for transition planning. The child care attendant role and services were explained and emotional support was provided. Chief Complaint: No chief complaint on file. Prior Living Arrangements What was your living situation prior to admission/observation?: Independently;With Friend () Do you have serious difficulty walking or climbing stairs? (5 years old or older): No (05/22/24 0548) History of falling: No (05/22/24 0800) Prior Level of Functioning Describe the patient's ability prior to admission/observation to perform ADLs: Performs independently (05/22/24 1026) Describe the patient's mobility status prior to admission: Patient ambulates independently (05/22/24 1026) Patient uses assistive device: No (05/22/24 102) Caregiver Information Patient Contacts Name Relation Home Work Mobile Ebony Brown Other - (no specific identity) [phone] Risk Stratification/Psychosocial/Care Gaps Risk Stratification Psycho Social / Medical Concerns Identified: Adjustment to illness/injury (05/22/24 1026) Accessed [employer] to connect patients to social care resources: No (05/22/24 102) OBRA or OPTIONS needed for placement: No (05/22/24 102) Readmission Risk Score: 10.61 (05/22/24 0800) AM-PAC Score With Stairs : 22 (05/22/24 0807) Prior to Admission Services Services Prior to Admission LAN SPECIALIST Services (Services received within the last 30 days with exception, Psych within last two years): N/A (05/22/24 1026) [place] Dept. of Aging (PDA) Waiver Program: N/A (05/22/24 1026) LAN SPECIALIST Transportation (Services received within the last 30 days): Family/Friends Personal Vehicle (05/22/24 1026) Outpatient Brake Assembler: No care steamfitter supervisor to display Patient/Family Expectations: Patient lives at home independently with his friend. He will return upon discharge. CM will follow for disposition planning. For further screening information, please refer to the Care Management flow document. documented in this encounter Plan of Treatment Upcoming Encounters Date Type Department Care Team (Late st Contact Info) Description 06/08/2024 7:40 AM EDT Office Visit Family Practice [facility] [address] [facility] [address] Sonya Dacosta [facility] [address] [facility] [address] 06/28/2024 8:30 AM EDT Imaging Cardiac Studies, [facility] [address] [facility] [place] [address] 08/09/2024 10:30 AM EST Office Visit Cardiology, [facility] [address] [facility] [place] [address] Palak Meier CRNP [address] [place] [address] Pending Results Name Type Priority Associated Diagnoses Date /Time IR ARTERIAL EMBOLIZATION Medical Imaging STAT 05/22/2024 2:57 PM EDT CULTURE, BLOOD Lab Routine 05/25/2024 3:43 AM EDT CULTURE, BLOOD Lab Routine 05/25/2024 3:43 AM EDT Health Maintenance Due Date Last [...] this encounter Medical Devices Implanted Type Area Optical Model Maker And Tester Device Identifier Shelf Expiration Date Model / Serial / Lot Coil Emboli Tornado 3x2 - [id number] Implanted:Qty: 1 on 05/22/2024 at [facility] [employer] [id number] 11/14/2028 [id number] / / [id number] Coil Fibered 2 10mm [id number] - [id number] Implanted:Qty: 1 on 05/22/2024 at [facility] [employer] [id number] 08/08/2026 [id number] / / [id number] Coil Emboli Tornado 3x2 - [id number] Implanted:Qty: 1 on 05/22/2024 at [facility] [employer] [id number] 09/08/2028 [id number] / / [id number] Coil Emboli Tornado 3x2 - [id number] Implanted:Qty: 1 on 05/22/2024 at [facility] [employer] [id number] 08/22/2028 [id number] / / [id number] Cath Diag Cobra 2 [id number] - [id number] Implanted:Qty: 1 on 05/22/2024 at [facility] [employer] [id number] 07/24/2026 [id number] / / [id number] documented as of this encounter Procedures Procedure Name Priority Date/Time Associated Diagnosis Comments TYPE AND SCREEN Routine 05/28/2024 11:46 AM EDT BASIC METABOLIC PANEL Routine 05/28/2024 6:13 AM EDT PHOSPHORUS Routine 05/28/2024 6:13 AM EDT CBC Routine 05/28/2024 6:13 AM EDT MAGNESIUM STAT 05/28/2024 6:13 AM EDT BASIC METABOLIC PANEL Routine 05/27/2024 5:56 AM EDT PHOSPHORUS Routine 05/27/2024 5:56 AM EDT CBC Routine 05/27/2024 5:56 AM EDT MAGNESIUM STAT 05/27/2024 5:56 AM EDT CBC Routine 05/26/2024 5:16 PM EDT VANCOMYCIN RANDOM Timed 05/26/2024 5:47 AM EDT BASIC METABOLIC PANEL Routine 05/26/2024 5:47 AM EDT PHOSPHORUS Routine 05/26/2024 5:47 AM EDT CBC Routine 05/26/2024 5:47 AM EDT MAGNESIUM STAT 05/26/2024 5:47 AM EDT BASIC METABOLIC PANEL Routine 05/25/2024 5:10 PM EDT CBC Routine 05/25/2024 5:10 PM EDT TYPE AND SCREEN Routine 05/25/2024 11:41 AM EDT CTA ABD/PELVIS STAT 05/25/2024 7:39 AM EDT Hemoperitoneum Other specified disorders of kidney and ureter Chronic pulmonary edema Pleural effusion, not elsewhere classified Exposure to other specified factors, initial encounter CULTURE, URINE, QUANTITATIVE STAT 05/25/2024 6:53 AM EDT PROCALCITONIN Routine 05/25/2024 3:43 AM EDT BASIC METABOLIC PANEL Routine 05/25/2024 3:43 AM EDT PHOSPHORUS Routine 05/25/2024 3:43 AM EDT LACTATE STAT 05/25/2024 3:43 AM EDT CULTURE, BLOOD Routine 05/25/2024 3:43 AM EDT CULTURE, BLOOD Routine 05/25/2024 3:43 AM EDT CBC Routine 05/25/2024 3:43 AM EDT MAGNESIUM STAT 05/25/2024 3:43 AM EDT CBC STAT 05/24/2024 7:06 PM EDT TRANSFUSE PACKED RED BLOOD CELLS Routine 05/24/2024 2:44 PM EDT HC COMPATIBILITY ELECTRONIC CROSSMATCH Routine 05/24/2024 2:05 PM EDT CBC STAT 05/24/2024 1:24 PM EDT PROCALCITONIN Add-on 05/24/2024 5:59 AM EDT BASIC METABOLIC PANEL Routine 05/24/2024 5:59 AM EDT IRON SCREEN, INCLUDING TIBC Add-on 05/24/2024 5:59 AM EDT PHOSPHORUS Add-on 05/24/2024 5:59 AM EDT CBC Routine 05/24/2024 5:59 AM EDT MAGNESIUM Add-on 05/24/2024 5:59 AM EDT FERRITIN Add-on 05/24/2024 5:59 AM EDT BASIC METABOLIC PANEL Routine 05/23/2024 5:22 PM EDT CBC STAT 05/23/2024 5:22 PM EDT HEPATITIS C RNA ADD ON STAT 05/23/2024 2:09 PM EDT HEPATITIS B SURFACE ANTIBODY Add-on 05/23/2024 2:09 PM EDT HEPATITIS C ANTIBODY SCREEN WITH PROGRESSION TO HEPATITIS C RNA QUANTITATIVE STAT 05/23/2024 2:09 PM EDT HEPATITIS C ANTIBODY STAT 05/23/2024 2:09 PM EDT HEPATITIS B SURFACE ANTIGEN Add-on 05/23/2024 2:09 PM EDT OSMOLALITY, SERUM STAT 05/23/2024 10:27 AM EDT SODIUM, RANDOM URINE STAT 05/23/2024 8:56 AM EDT OSMOLALITY, URINE STAT 05/23/2024 8:56 AM EDT BASIC METABOLIC PANEL Routine 05/23/2024 6:44 AM EDT PHOSPHORUS Routine 05/23/2024 6:44 AM EDT CBC Routine 05/23/2024 6:44 AM EDT MAGNESIUM Routine 05/23/2024 6:44 AM EDT CBC STAT 05/22/2024 9:19 PM EDT URINALYSIS, REFLEX TO CULTURE Routine 05/22/2024 4:51 PM EDT URINALYSIS, REFLEX TO CULTURE (CUP ONLY) Routine 05/22/2024 4:51 PM EDT URINALYSIS, REFLEX TO CULTURE (NOT FOR NEUTROPENIC PATIENTS) Routine 05/22/2024 4:51 PM EDT BASIC METABOLIC PANEL STAT 05/22/2024 3:54 PM EDT PHOSPHORUS Routine 05/22/2024 3:54 PM EDT CBC STAT 05/22/2024 3:54 PM EDT MAGNESIUM STAT 05/22/2024 3:54 PM EDT ABO/RH STAT 05/22/2024 3:49 PM EDT TYPE AND SCREEN Routine 05/22/2024 3:49 PM EDT IR ARTERIAL EMBOLIZATION STAT 05/22/2024 2:57 PM EDT Procedure Note - Adam Arias MD / Janie Nath MD - 05/22/2024 2:57 PM EDTThis note is in progress. PROCEDURE: Diagnostic angiography and left renal arterial embolization using Gelfoamand coils. INDICATION: 53-year-[facility] presents with Page kidney secondary to large leftrenal hematoma which demonstrates active arterial extravasation on CTA. ATTENDING (OPERATING PHYSICIAN): Adam Arias MD SCRUBBED RESIDENT (OPERATING PHYSICIAN): Janie Nath MD SUPPORTING PROVIDER (BOX TRUCK WASHER): RT. Carli CONSENT: After a detailed discussion of the procedure, risks, benefits andalternative treatment options, informed consent was obtained. TIME OUT: A time out procedure was performed. The patient's identificationwas verified. Informed consent with agreement of procedure, site andposition was obtained. All necessary equipment was available prior toprocedure. CONTRAST: IV Isovue-300. COMPLICATIONS: None. ANESTHESIA: Local lidocaine. IV Versed. IV Fentanyl. SEDATION TIME: Start to end: 12:27 PM to 3:18 PM. Qualified nurse sedationobserver Carito Hernandez RN. MEDICATIONS: See MAR PROCEDURE DESCRIPTION: Using real-time ultrasound guidance right commonfemoral artery was punctured and access was secured. Digital ultrasoundimages of the artery were acquired and digitally archived. A 5 Fr sheath was placed over a wire and attached to saline infusion. A 4Fr Handle Cobra 2 catheter was used for catheterization and angiography ofthe left renal arterial vasculature. An arteriogram with digitalsubtraction angiography (DSA) was performed. To improve visualization of the area of concern, super selectivecatheterization of the second order arcuate left renal artery supplyingthe anterior mid to inferior pole was performed with the Progreatmicrocatheter and DSA was performed. Given the findings, the catheter was subsequently withdrawn and multipleparent hhrdjihr-ilxboniwiahfb-untk combinations were used to catheterizethe second order arcuate left renal artery supplying the posterior mid toinferior pole, finally succeeding using a 5 Fr 45 cm Awais sheath toengage the proximal left renal artery, a renal double curve parentcatheter and the Progreat microcatheter. DSA was performed. The microcatheter was advanced to the third order branch of the posteriormid to lower pole left renal arcuate artery, and DSA was performed. Given the findings, three straight tornado 3-2 mm tapered microcoils andone 2 mm x 10 cm pushable coil were deployed in the third order left renalarterial branch. Gelfoam was also used to embolize the vessel. Apost-embolization control arteriogram was performed. A limited right lower extremity angiogram was performed. All catheters andwires were removed. The access sheath was then removed and hemostasis wasachieved using a Mynx vascular closure device and manual compression. Thesite was dressed. The peripheral pulses were intact. The procedure was performed under the personal supervision of Dr. Mills who was present for the entire procedure. Comment: Due to unexpected technical difficulty, additional effort andextended procedural time a modifier 22 has been applied to this case.Several catheters, wires and material used to safely perform thechallenging procedure successfully. FINDINGS: 1. Access: The right common femoral artery is anechoic by ultrasound.Ultrasound-guided access was obtained. Fluoroscopic imaging demonstratesaccess to the common femoral artery overlying the inferomedial aspect ofthe right femoral head. 2. Arteriogram: There is conventional left renal arterial anatomy. Activeextravasation is identified in the third order posterior interpolararcuate branch. Other findings/intervention performed as above.Post-embolization arteriogram demonstrated resolution of the activeextravasation. 3. Right lower extremity: Access is seen at the right common femoralartery above the bifurcation. Patent external iliac, internal iliac,common femoral and visualized superficial femoral artery and profunda. Comment: Due to unexpected technical difficulty, additional effort andextended procedural time a modifier 22 has been applied to this case.Several catheters, wires and material used to safely perform thechallenging procedure successfully. IMPRESSION IMPRESSION: Angiogram with Gelfoam and coil embolization of a third order branch ofthe left renal artery. PLAN: - The patient should remain supine with legs straight for four hours. - Monitor groin access site. - Continue trending hgb with management per primary. CTA ABD/PELVIS STAT 05/22/2024 11:39 AM EDT Other specified disorders of kidney and ureter Hemoperitoneum Chronic pulmonary edema Pleural effusion, not elsewhere classified Exposure to other specified factors, initial encounter BASIC METABOLIC PANEL Routine 05/22/2024 7:58 AM EDT CBC Routine 05/22/2024 7:58 AM EDT documented in this encounter Results * TYPE AND SCREEN (05/28/2024 11:46 AM EDT) ABO B 05/28/2024 12:46 PM EDT LABORATORY [facility] BLOOD BANK Rh Positive 05/28/2024 12:46 PM EDT LABORATORY [facility] BLOOD [facility] Red Blood Cell Antibody Screen Negative 05/28/2024 12:46 PM EDT LABORATORY [facility] BLOOD [facility] Specimen Expiration Date 05/31/2024 23:59 05/28/2024 12:46 PM EDT LABORATORY [facility] BLOOD B[facility] Blood Blood sample taken from central line / Unknown Central Line / Unknown 05/28/2024 11:46 AM EDT 05/28/2024 11:52 AM EDT Vikas Lea MD LAB BLOOD BANK TEST ORDERABLES LABORATORY [facility] BLOOD BANK [address] [place] [address] * (ABNORMAL) BASIC METABOLIC PANEL (05/28/2024 6:13 AM EDT) BUN 64(H) 6 - 20 mg/dL 05/28/2024 7:09 AM EDT LABORATORY [facility] Creatinine 8.0(H) 0.6 - 1.2 mg/dL 05/28/2024 7:09 AM EDT LABORATORY [facility] Estimated Glomerular Filtration Rate 7(L) >=60 mL/min 05/28/2024 7:09 AM EDT LABORATORY C Comment:eGFR is calculated b ased on the CKD-EPI 2020 equation. Sodium 131(L) 135 - 146 mmol/L 05/28/2024 7:09 AM EDT LAB[facility]ATORY [facility] Potassium 4.4 3.5 - 5.1 mmol/L 05/28/2024 7:09 AM EDT LAB[facility]ATORY [facility] Chloride 95(L) 98 - 107 mmol/L 05/28/2024 7:09 AM EDT LAB[facility]ATORY [facility] CO2 22 22 - 32 mmol/L 05/28/2024 7:09 AM EDT [facility] Anion Gap 14 7 - 15 mmol/L 05/28/2024 7:09 AM EDT LAB[facility]ATORY [facility] Glucose 98 70 - 120 mg/dL 05/28/2024 7:09 AM EDT LAB[facility]ATORY [facility] Calcium 8.8 8.4 - 10.2 mg/dL 05/28/2024 7:09 AM EDT LABORATORY [facility] Blood Venous blood specimen / Unknown Venipuncture / Unknown 05/28/2024 6:13 AM EDT 05/28/2024 6:36 AM EDT Cuba Gómez MD LAB BLOOD ORDERABLES Performing Organization Address [facility] de Phone Number LABORATORY [facility] [address] [place] [address] * (ABNORMAL) PHOSPHORUS (05/28/2024 6:13 AM EDT) Phosphorus 5.9(H) 2.5 - 4.8 mg/dL 05/28/2024 7:09 AM EDT LABORATORY C Blood Venous blood specimen / Unknown Venipuncture / Unknown 05/28/2024 6:13 AM EDT 05/28/2024 6:36 AM EDT Cuba Gómez MD LAB BLOOD ORDERABLES Performing Organization Address [facility] de Phone Number LABORATORY [facility] [address] [place] [address] * MAGNESIUM (05/28/2024 6:13 AM EDT) Magnesium 2.5 1.5 - 2.6 mg/dL 05/28/2024 7:09 AM EDT LABORATORY [facility] Blood Venous blood specimen / Unknown Venipuncture / Unknown 05/28/2024 6:13 AM EDT 05/28/2024 6:36 AM EDT Cuba Gómez MD LAB BLOOD ORDERABLES Performing Organization Address [facility] de Phone Number LABORATORY [facility] [address] [place] [address] * (ABNORMAL) CBC (05/28/2024 6:13 AM EDT) WBC 11.28(H) 4.00 - 10.80 K/uL 05/28/2024 6:50 AM EDT LABORATORY [facility] RBC 2.57 4.50 - 5.25 M/uL 05/28/2024 6:50 AM EDT LABORATORY [facility] HGB 7.8(L) 14.0 - 16.8 g/dL 05/28/2024 6:50 AM EDT LABORATORY [facility] HCT 24.9(L) 40.0 - 48.4 % 05/28/2024 6:50 AM EDT LABORATORY [facility] MCV 96.9 82.0 - 99.5 fL 05/28/2024 6:50 AM EDT LABORATORY [facility] MCH 30.4 27.0 - 34.0 pg 05/28/2024 6:50 AM EDT LABORATORY [facility] MCHC 31.3 32.0 - 36.0 g/dL 05/28/2024 6:50 AM EDT LABORATORY [facility] RDW 15.9 11.5 - 15.5 % 05/28/2024 6:50 AM EDT LABORATORY [facility] PLT 286 140 - 400 K/uL 05/28/2024 6:50 AM EDT LABORATORY [facility] MPV 9.8 6.6 - 11.1 fL 05/28/2024 6:50 AM EDT LABORATORY [facility] nRBCs 0 <=0 /100 WBCs 05/28/2024 6:50 AM EDT LABORATORY [facility] Blood Venous blood specimen / Unknown Venipuncture / Unknown 05/28/2024 6:13 AM EDT 05/28/2024 6:36 AM EDT Cuba Gómez MD LAB BLOOD ORDERABLES Performing Organization Address City/State/[facility] Co de Phone Number LABORATORY [facility] [address] [place] [address] * (ABNORMAL) CBC (05/27/2024 5:56 AM EDT) WBC 11.08(H) 4.00 - 10.80 K/uL 05/27/2024 6:37 AM EDT LABORATORY [facility] RBC 2.74 4.50 - 5.25 M/uL 05/27/2024 6:37 AM EDT LABORATORY [facility] HGB 8.3(L) 14.0 - 16.8 g/dL 05/27/2024 6:37 AM EDT LABORATORY [facility] HCT 26.6(L) 40.0 - 48.4 % 05/27/2024 6:37 AM EDT LABORATORY [facility] MCV 97.1 82.0 - 99.5 fL 05/27/2024 6:37 AM EDT LABORATORY [facility] MCH 30.3 27.0 - 34.0 pg 05/27/2024 6:37 AM EDT LABORATORY [facility] MCHC 31.2 32.0 - 36.0 g/dL 05/27/2024 6:37 AM EDT LABORATORY [facility] RDW 16.3 11.5 - 15.5 % 05/27/2024 6:37 AM EDT LABORATORY [facility] PLT 254 140 - 400 K/uL 05/27/2024 6:37 AM EDT LABORATORY [facility] MPV 9.8 6.6 - 11.1 fL 05/27/2024 6:37 AM EDT LABORATORY GM nRBCs 0 <=0 /100 WBCs 05/27/2024 6:37 AM EDT LABORATORY GM Blood Venous blood specimen / Unknown Venipuncture / Unknown 05/27/2024 5:56 AM EDT 05/27/2024 6:22 AM EDT Cuba Gómez MD LAB BLOOD ORDERABLES LABORATORY [facility] [address] [place] [address] * (ABNORMAL) BASIC METABOLIC PANEL (05/27/2024 5:56 AM EDT) BUN 53(H) 6 - 20 mg/dL 05/27/2024 7:00 AM EDT LABORATORY [facility] Creatinine 7.0(H) 0.6 - 1.2 mg/dL 05/27/2024 7:00 AM EDT LABORATORY [facility] Estimated Glomerular Filtration Rate 9(L) >=60 mL/min 05/27/2024 7:00 AM EDT LABORATORY [facility] Comment:eGFR is calculated b ased on the CKD-EPI 2020 equation. Sodium 132(L) 135 - 146 mmol/L 05/27/2024 7:00 AM EDT LABORATORY [facility] Potassium 4.3 3.5 - 5.1 mmol/L 05/27/2024 7:00 AM EDT LABORATORY [facility] Chloride 95(L) 98 - 107 mmol/L 05/27/2024 7:00 AM EDT LABORATORY [facility] CO2 24 22 - 32 mmol/L 05/27/2024 7:00 AM EDT LABORATORY [facility] Anion Gap 13 7 - 15 mmol/L 05/27/2024 7:00 AM EDT LABORATORY C Glucose 103 70 - 120 mg/dL 05/27/2024 7:00 AM EDT LABORATORY [facility] Calcium 9.0 8.4 - 10.2 mg/dL 05/27/2024 7:00 AM EDT LABORATORY C Blood Venous blood specimen / Unknown Venipuncture / Unknown 05/27/2024 5:56 AM EDT 05/27/2024 6:22 AM EDT Cuba Gómez MD LAB BLOOD ORDERABLES Performing Organization Address City/[facility] Co de Phone Number LABORATORY [facility] [address] [place] [address] * (ABNORMAL) PHOSPHORUS (05/27/2024 5:56 AM EDT) Phosphorus 5.3(H) 2.5 - 4.8 mg/dL 05/27/2024 7:00 AM EDT LABORATORY [facility] Blood Venous blood specimen / Unknown Venipuncture / Unknown 05/27/2024 5:56 AM EDT 05/27/2024 6:22 AM EDT Cuba Gómez MD LAB BLOOD ORDERABLES Performing Organization Address City/[facility]/ZIP Co de Phone Number LABORATORY [place] [address] [place] [address] * MAGNESIUM (05/27/2024 5:56 AM EDT) Magnesium 2.6 1.5 - 2.6 mg/dL 05/27/2024 7:00 AM EDT LABORATORY C Blood Venous blood specimen / Unknown Venipuncture / Unknown 05/27/2024 5:56 AM EDT 05/27/2024 6:22 AM EDT Cuba Gómez MD LAB BLOOD ORDERABLES LAB[facility]ATORY [facility] [address] [place] [address] * (ABNORMAL) CBC (05/26/2024 5:16 PM EDT) WBC 11.95(H) 4.00 - 10.80 K/uL 05/26/2024 5:46 PM EDT LABORATORY [facility] RBC 2.68 4.50 - 5.25 M/uL 05/26/2024 5:46 PM EDT LABORATORY [facility] HGB 8.2(L) 14.0 - 16.8 g/dL 05/26/2024 5:46 PM EDT LABORATORY [facility] HCT 26.1(L) 40.0 - 48.4 % 05/26/2024 5:46 PM EDT LABORATORY [facility] MCV 97.4 82.0 - 99.5 fL 05/26/2024 5:46 PM EDT LABORATORY [facility] MCH 30.6 27.0 - 34.0 pg 05/26/2024 5:46 PM EDT LABORATORY [facility] MCHC 31.4 32.0 - 36.0 g/dL 05/26/2024 5:46 PM EDT LABORATORY [facility] RDW 16.6 11.5 - 15.5 % 05/26/2024 5:46 PM EDT LABORATORY [facility] PLT 244 140 - 400 K/uL 05/26/2024 5:46 PM EDT LABORATORY [facility] MPV 9.9 6.6 - 11.1 fL 05/26/2024 5:46 PM EDT LABORATORY [facility] nRBCs 0 <=0 /100 WBCs 05/26/2024 5:46 PM EDT LABORATORY [facility] Blood Venous blood specimen / Unknown Venipuncture / Unknown 05/26/2024 5:16 PM EDT 05/26/2024 5:22 PM EDT Cuba Gómez MD LAB BLOOD ORDERABLES LAB[facility]ATORY [facility] [address] [place] [address] * (ABNORMAL) CBC (05/26/2024 5:47 AM EDT) WBC 13.11(H) 4.00 - 10.80 K/uL 05/26/2024 6:30 AM EDT LABORATORY [facility] RBC 2.43 4.50 - 5.25 M/uL 05/26/2024 6:30 AM EDT LABORATORY [facility] HGB 7.4(L) 14.0 - 16.8 g/dL 05/26/2024 6:30 AM EDT LABORATORY [facility] HCT 23.2(L) 40.0 - 48.4 % 05/26/2024 6:30 AM EDT LABORATORY [facility] MCV 95.5 82.0 - 99.5 fL 05/26/2024 6:30 AM EDT LABORATORY [facility] MCH 30.5 27.0 - 34.0 pg 05/26/2024 6:30 AM EDT LABORATORY [facility] MCHC 31.9 32.0 - 36.0 g/dL 05/26/2024 6:30 AM EDT LABORATORY [facility] RDW 16.5 11.5 - 15.5 % 05/26/2024 6:30 AM EDT LABORATORY [facility] PLT 214 140 - 400 K/uL 05/26/2024 6:30 AM EDT LABORATORY [facility] MPV 10.3 6.6 - 11.1 fL 05/26/2024 6:30 AM EDT LABORATORY GM nRBCs 0 <=0 /100 WBCs 05/26/2024 6:30 AM EDT LABORATORY [facility] Blood Venous blood specimen / Unknown Venipuncture / Unknown 05/26/2024 5:47 AM EDT 05/26/2024 6:16 AM EDT Cuba Gómez MD LAB BLOOD ORDERABLES LABORATORY [facility] [address] [place] [address] * (ABNORMAL) BASIC METABOLIC PANEL (05/26/2024 5:47 AM EDT) BUN 68(H) 6 - 20 mg/dL 05/26/2024 6:52 AM EDT LABORATORY [facility] Creatinine 8.3(H) 0.6 - 1.2 mg/dL 05/26/2024 6:52 AM EDT LABORATORY [facility] Estimated Glomerular Filtration Rate 7(L) >=60 mL/min 05/26/2024 6:52 AM EDT LABORATORY [facility] Comment:eGFR is calculated b ased on the CKD-EPI 2020 equation. Sodium 130(L) 135 - 146 mmol/L 05/26/2024 6:52 AM EDT LABORATORY [facility] Potassium 4.5 3.5 - 5.1 mmol/L 05/26/2024 6:52 AM EDT LABORATORY [facility] Chloride 95(L) 98 - 107 mmol/L 05/26/2024 6:52 AM EDT LABORATORY [facility] CO2 21(L) 22 - 32 mmol/L 05/26/2024 6:52 AM EDT LABORATORY [facility] Anion Gap 14 7 - 15 mmol/L 05/26/2024 6:52 AM EDT LABORATORY [facility] Glucose 101 70 - 120 mg/dL 05/26/2024 6:52 AM EDT LABORATORY [facility] Calcium 8.8 8.4 - 10.2 mg/dL 05/26/2024 6:52 AM EDT LABORATORY [facility] Blood Venous blood specimen / Unknown Venipuncture / Unknown 05/26/2024 5:47 AM EDT 05/26/2024 6:16 AM EDT Cuba Gómez MD LAB BLOOD ORDERABLES Performing Organization Address City/[facility] Co de Phone Number LABORATORY [facility] [address] [place] [address] * (ABNORMAL) PHOSPHORUS (05/26/2024 5:47 AM EDT) Phosphorus 6.2(H) 2.5 - 4.8 mg/dL 05/26/2024 6:52 AM EDT LABORATORY [facility] Blood Venous blood specimen / Unknown Venipuncture / Unknown 05/26/2024 5:47 AM EDT 05/26/2024 6:16 AM EDT Cuba Gómez MD LAB BLOOD ORDERABLES LABORATORY [facility] [address] [place] [address] * (ABNORMAL) MAGNESIUM (05/26/2024 5:47 AM EDT) [facility] [address] Magnesium 2.7(H) 1.5 - 2.6 mg/dL 05/26/2024 6:52 AM EDT LABORATORY [facility] Blood Venous blood specimen / Unknown Venipuncture / Unknown 05/26/2024 5:47 AM EDT 05/26/2024 6:16 AM EDT Cuba Gómez MD LAB BLOOD ORDERABLES LABORATORY [facility] [address] [place] [address] * VANCOMYCIN RANDOM (05/26/2024 5:47 AM EDT) [facility] [address] Vancomycin Random 21.2 10.0 - 40.0 ug/mL 05/26/2024 6:52 AM EDT LABORATORY C Blood Venous blood specimen / Unknown Venipuncture / Unknown 05/26/2024 5:47 AM EDT 05/26/2024 6:16 AM EDT Yash Rooney MD LAB BLOOD ORDERABLES LABORATORY [facility] [address] [place] [address] * (ABNORMAL) CBC (05/25/2024 5:10 PM EDT) [facility] [address] WBC 12.95(H) 4.00 - 10.80 K/uL 05/25/2024 5:27 PM EDT LABORATORY [facility] RBC 2.44 4.50 - 5.25 M/uL 05/25/2024 5:27 PM EDT LABORATORY [facility] HGB 7.6(L) 14.0 - 16.8 g/dL 05/25/2024 5:27 PM EDT LABORATORY [facility] HCT 23.0(L) 40.0 - 48.4 % 05/25/2024 5:27 PM EDT LABORATORY [facility] MCV 94.3 82.0 - 99.5 fL 05/25/2024 5:27 PM EDT LABORATORY [facility] MCH 31.1 27.0 - 34.0 pg 05/25/2024 5:27 PM EDT LABORATORY [facility] MCHC 33.0 32.0 - 36.0 g/dL 05/25/2024 5:27 PM EDT LABORATORY [facility] RDW 16.8 11.5 - 15.5 % 05/25/2024 5:27 PM EDT LABORATORY [facility] PLT 197 140 - 400 K/uL 05/25/2024 5:27 PM EDT LABORATORY [facility] MPV 9.6 6.6 - 11.1 fL 05/25/2024 5:27 PM EDT LABORATORY [facility] nRBCs 0 <=0 /100 WBCs 05/25/2024 5:27 PM EDT LABORATORY [facility] Blood Venous blood specimen / Unknown Venipuncture / Unknown 05/25/2024 5:10 PM EDT 05/25/2024 5:15 PM EDT Cuba Gómez MD LAB BLOOD ORDERABLES LABORATORY [facility] [address] [place] [address] * (ABNORMAL) BASIC METABOLIC PANEL (05/25/2024 5:10 PM EDT) BUN 61(H) 6 - 20 mg/dL 05/25/2024 5:49 PM EDT LABORATORY [facility] Creatinine 7.4(H) 0.6 - 1.2 mg/dL 05/25/2024 5:49 PM EDT LABORATORY [facility] Estimated Glomerular Filtration Rate 8(L) >=60 mL/min 05/25/2024 5:49 PM EDT LABORATORY [facility] Comment:eGFR is calculated b ased on the CKD-EPI 2020 equation. Sodium 132(L) 135 - 146 mmol/L 05/25/2024 5:49 PM EDT LABORATORY [facility] Potassium 4.1 3.5 - 5.1 mmol/L 05/25/2024 5:49 PM EDT LABORATORY [facility] Chloride 96(L) 98 - 107 mmol/L 05/25/2024 5:49 PM EDT LABORATORY [facility] CO2 22 22 - 32 mmol/L 05/25/2024 5:49 PM EDT LABORATORY [facility] Anion Gap 14 7 - 15 mmol/L 05/25/2024 5:49 PM EDT LABORATORY [facility] Glucose 141(H) 70 - 120 mg/dL 05/25/2024 5:49 PM EDT LABORATORY [facility] Calcium 8.7 8.4 - 10.2 mg/dL 05/25/2024 5:49 PM EDT LABORATORY [facility] Blood Venous blood specimen / Unknown Venipuncture / Unknown 05/25/2024 5:10 PM EDT 05/25/2024 5:15 PM EDT Dylon Coburn DO LAB BLOOD ORDER LIOR Performing Organization Address City/[facility] Co de Phone Number LABORATORY [facility] [address] [place] [address] * TYPE AND SCREEN (05/25/2024 11:41 AM EDT) ABO B 05/25/2024 12:31 PM EDT LABORATORY [facility] BLOOD BANK Rh Positive 05/25/2024 12:31 PM EDT LABORATORY [facility] BLOOD BANK Red Blood Cell Antibody Screen Negative 05/25/2024 12:31 PM EDT LABORATORY [facility] BLOOD BANK Specimen Expiration Date 05/28/2024 23:59 05/25/2024 12:31 PM EDT LABORATORY [facility] BLOOD BANK Blood Venous blood specimen / Unknown Venipuncture / Unknown 05/25/2024 11:41 AM EDT 05/25/2024 11:46 AM EDT Vikas Lea MD LAB BLOOD BANK TEST ORDERABLES Performing Organization Address [facility]/ZIP Co de Phone Number LABORATORY [facility] BLOOD BANK [address] [place] [address] * CTA ABD/PELVIS (05/25/2024 7:39 AM EDT) Anatomical Region Laterality Modality Abdomen, Pelvis, Body Computed T omography 05/25/2024 8:40 AM EDT Narrative 05/25/2024 8:38 AM EDT EXAM: CTA ABDOMEN PELVIS WITHOUT AND WITH CONTRAST HISTORY: L subcapular hematoma, concern for infection and continued bleeding COMPARISON: CTA abdomen/pelvis 05/22/2024. TECHNIQUE: CTA abdomen pelvis without and with intravenous contrast was performed. MIP images were obtained and reviewed. CONTRAST: Intravenous contrast was administered. FINDINGS: LOWER CHEST: Small bilateral pleural effusions, bibasilar atelectasis, mild interlobular septal thickening, and left basilar ground-glass opacities. LIVER: No focal lesion. GALLBLADDER/BILE DUCTS: Noninflamed gallbladder. No biliary ductal dilatation. PANCREAS: No focal lesion or main ductal dilatation. GI TRACT: Hyper dense ingested material is present in the. No obstruction. Colonic diverticulosis. Noninflamed appendix. SPLEEN: Splenomegaly, measuring 14.8 cm no focal lesion. LYMPH NODES: No lymphadenopathy. ADRENAL GLANDS: No nodule. RIGHT KIDNEY/RIGHT URETER: Diffusely heterogeneous enhancement of the renal parenchyma and striated nephrogram. No calculus or hydronephrosis. LEFT KIDNEY/LEFT URETER: Diffusely heterogeneous enhancement of the renal parenchyma and striated nephrogram. Similar size of the large subcapsular perinephric hematoma (measuring 15.0 cm length) spanning the entire length of the kidney. No blush of contrast or evidence of active hemorrhage. Blood products are centered in the left retroperitoneum with extension into the right retroperitoneum and retropubic spaces similar to 05/22/2024. Embolization clips. No calculus or hydronephrosis. URINARY BLADDER: Underdistended. REPRODUCTIVE ORGANS: Unremarkable. VASCULATURE: No aortic aneurysm or dissection. Patent celiac, superior mesenteric, bilateral renal, and inferior mesenteric arteries. MISCELLANEOUS: Presacral edema. MUSCULOSKELETAL: Small fat containing inguinal hernias. Mild subcutaneous edema. Spinal degenerative changes. IMPRESSION: No CT evidence of active hemorrhage. Similar size of the large left perinephric hematoma. Nonspecific abnormal enhancement of the right and left kidney may reflect acute tubular necrosis. Pulmonary edema in the lung bases and small bilateral pleural effusions. Procedure Note Watson Lorenzo MD - 05/25/2024 EXAM: CTA ABDOMEN PELVIS WITHOUT AND WITH CONTRAST HISTORY: L subcapular hematoma, concern for infection and continued bleeding COMPARISON: CTA abdomen/pelvis 05/22/2024. TECHNIQUE: CTA abdomen pelvis without and with intravenous contrast was performed.MIP images were obtained and reviewed. CONTRAST: Intravenous contrast was administered. FINDINGS: LOWER CHEST: Small bilateral pleural effusions, bibasilar atelectasis,mild interlobular septal thickening, and left basilar ground-glassopacities. LIVER: No focal lesion. GALLBLADDER/BILE DUCTS: Noninflamed gallbladder. No biliary ductaldilatation. PANCREAS: No focal lesion or main ductal dilatation. GI TRACT: Hyper dense ingested material is present in the. Noobstruction. Colonic diverticulosis. Noninflamed appendix. SPLEEN: Splenomegaly, measuring 14.8 cm no focal lesion. LYMPH NODES: No lymphadenopathy. ADRENAL GLANDS: No nodule. RIGHT KIDNEY/RIGHT URETER: Diffusely heterogeneous enhancement of therenal parenchyma and striated nephrogram. No calculus orhydronephrosis. LEFT KIDNEY/LEFT URETER: Diffusely heterogeneous enhancement of the renalparenchyma and striated nephrogram. Similar size of the large subcapsularperinephric hematoma (measuring 15.0 cm length) spanning the entire lengthof the kidney. No blush of contrast or evidence of active hemorrhage.Blood products are centered in the left retroperitoneum with extensioninto the right retroperitoneum and retropubic spaces similar to05/22/2024. Embolization clips. No calculus or hydronephrosis. URINARY BLADDER: Underdistended. REPRODUCTIVE ORGANS: Unremarkable. VASCULATURE: No aortic aneurysm or dissection. Patent celiac, superiormesenteric, bilateral renal, and inferior mesenteric arteries. MISCELLANEOUS: Presacral edema. MUSCULOSKELETAL: Small fat containing inguinal hernias. Mild subcutaneousedema. Spinal degenerative changes. IMPRESSION: No CT evidence of active hemorrhage. Similar size of the large leftperinephric hematoma. Nonspecific abnormal enhancement of the right and left kidney may reflectacute tubular necrosis. Pulmonary edema in the lung bases and small bilateral pleural effusions. Cuba Gómez MD RAD CT * CULTURE, URINE, QUANTITATIVE (05/25/2024 6:53 AM EDT) Culture Growth < 100 colonies/m l (no growth) 05/26/2024 8:47 AM EDT LABORATORY [facility] Urine Urine specimen / Unknown Non-blood Collection / Unknown 05/25/2024 6:53 AM EDT 05/25/2024 7:02 AM EDT Trevor Meiern Crystal DO LAB MICRO - GENE RAL ORDERABLES Performing Organization Address [facility]/ZIP Co de Phone Number LABORATORY [place] [address] [place] [address] * LACTATE (05/25/2024 3:43 AM EDT) Lactate 0.8 0.4 - 2.0 mmol/L 05/25/2024 4:38 AM EDT LABORATORY [facility] Blood Venous blood specimen / Unknown Venipuncture / Unknown 05/25/2024 3:43 AM EDT 05/25/2024 4:15 AM EDT Trevor Meiern Crystal LAB BLOOD ORDERA BLES Performing Organization Address [facility] de Phone Number LABORATORY [place] [address] [place] [address] * (ABNORMAL) PROCALCITONIN (05/25/2024 3:43 AM EDT) Procalcitonin 0.70(H) <0.10 ng/mL 05/25/2024 4:48 AM EDT LABORATORY [facility] Blood Venous blood specimen / Unknown Venipuncture / Unknown 05/25/2024 3:43 AM EDT 05/25/2024 4:15 AM EDT Narrative LABORATORY C - 05/25/2024 4:48 AM EDT Less than 0.5 ng/mL: Low risk for progression to sepsis. Review patients condition for localized infections. 0.5 to 2.0 ng/mL: Intermediate risk for progresion to sepsis. Review underlying conditions. Recommend repeat PCT after 6 hours has elapsed. Greater than 2.0 ng/mL: high risk for progression to sepsis unless other causes are known. Trevor Britton Crystal LAB BLOOD ORDERA BLES Performing Organization Address [facility] Co de Phone Number LABORATORY [address] [address] * (ABNORMAL) CBC (05/25/2024 3:43 AM EDT) WBC 11.88(H) 4.00 - 10.80 K/uL 05/25/2024 4:35 AM EDT LABORATORY [facility] RBC 2.41 4.50 - 5.25 M/uL 05/25/2024 4:35 AM EDT LABORATORY [facility] HGB 7.3(L) 14.0 - 16.8 g/dL 05/25/2024 4:35 AM EDT LABORATORY [facility] HCT 23.0(L) 40.0 - 48.4 % 05/25/2024 4:35 AM EDT LABORATORY [facility] MCV 95.4 82.0 - 99.5 fL 05/25/2024 4:35 AM EDT LABORATORY [facility] MCH 30.3 27.0 - 34.0 pg 05/25/2024 4:35 AM EDT LABORATORY [facility] MCHC 31.7 32.0 - 36.0 g/dL 05/25/2024 4:35 AM EDT LABORATORY [facility] RDW 16.6 11.5 - 15.5 % 05/25/2024 4:35 AM EDT LABORATORY [facility] PLT 190 140 - 400 K/uL 05/25/2024 4:35 AM EDT LABORATORY [facility] MPV 10.1 6.6 - 11.1 fL 05/25/2024 4:35 AM EDT LABORATORY [facility] nRBCs 0 <=0 /100 WBCs 05/25/2024 4:35 AM EDT LABORATORY [facility] Blood Venous blood specimen / Unknown Venipuncture / Unknown 05/25/2024 3:43 AM EDT 05/25/2024 4:15 AM EDT Cuba Gómez MD LAB BLOOD ORDERABLES LABORATORY [facility] [address] [place] [address] * (ABNORMAL) BASIC METABOLIC PANEL (05/25/2024 3:43 AM EDT) BUN 89(H) 6 - 20 mg/dL 05/25/2024 4:48 AM EDT LABORATORY [facility] Creatinine 9.6(H) 0.6 - 1.2 mg/dL 05/25/2024 4:48 AM EDT LABORATORY [facility] Estimated Glomerular Filtration Rate 6(L) >=60 mL/min 05/25/2024 4:48 AM EDT LABORATORY [facility] Comment:eGFR is calculated b ased on the CKD-EPI 2020 equation. Sodium 129(L) 135 - 146 mmol/L 05/25/2024 4:48 AM EDT LABORATORY [facility] Potassium 4.3 3.5 - 5.1 mmol/L 05/25/2024 4:48 AM EDT LABORATORY [facility] Chloride 93(L) 98 - 107 mmol/L 05/25/2024 4:48 AM EDT LABORATORY [facility] CO2 18(L) 22 - 32 mmol/L 05/25/2024 4:48 AM EDT LABORATORY [facility] Anion Gap 18(H) 7 - 15 mmol/L 05/25/2024 4:48 AM EDT LABORATORY [facility] Glucose 104 70 - 120 mg/dL 05/25/2024 4:48 AM EDT LABORATORY [facility] Calcium 8.6 8.4 - 10.2 mg/dL 05/25/2024 4:48 AM EDT LABORATORY [facility] Blood Venous blood specimen / Unknown Venipuncture / Unknown 05/25/2024 3:43 AM EDT 05/25/2024 4:15 AM EDT Cuba Gómez MD LAB BLOOD ORDERABLES Performing Organization Address City/[facility] Co de Phone Number LABORATORY [facility] [address] [place] [address] * (ABNORMAL) PHOSPHORUS (05/25/2024 3:43 AM EDT) Phosphorus 7.3(H) 2.5 - 4.8 mg/dL 05/25/2024 4:48 AM EDT LABORATORY [facility] Blood Venous blood specimen / Unknown Venipuncture / Unknown 05/25/2024 3:43 AM EDT 05/25/2024 4:15 AM EDT [place] Gómez MD LAB BLOOD ORDERABLES Performing Organization Address City/[facility] Co de Phone Number LABORATORY [facility] [address] [place] [address] * (ABNORMAL) MAGNESIUM (05/25/2024 3:43 AM EDT) Pathologist [facility] Magnesium 2.9(H) 1.5 - 2.6 mg/dL 05/25/2024 4:48 AM EDT LABORATORY [facility] Blood Venous blood specimen / Unknown Venipuncture / Unknown 05/25/2024 3:43 AM EDT 05/25/2024 4:15 AM EDT [place] Gómez MD LAB BLOOD ORDERABLES LABORATORY [facility] [address] [place] [address] * (ABNORMAL) CBC (05/24/2024 7:06 PM EDT) [facility] [address] WBC 11.08(H) 4.00 - 10.80 K/uL 05/24/2024 7:19 PM EDT LABORATORY [facility] RBC 2.47 4.50 - 5.25 M/uL 05/24/2024 7:19 PM EDT LABORATORY [facility] HGB 7.7(L) 14.0 - 16.8 g/dL 05/24/2024 7:19 PM EDT LABORATORY [facility] HCT 23.4(L) 40.0 - 48.4 % 05/24/2024 7:19 PM EDT LABORATORY [facility] MCV 94.7 82.0 - 99.5 fL 05/24/2024 7:19 PM EDT LABORATORY [facility] MCH 31.2 27.0 - 34.0 pg 05/24/2024 7:19 PM EDT LABORATORY [facility] MCHC 32.9 32.0 - 36.0 g/dL 05/24/2024 7:19 PM EDT LABORATORY [facility] RDW 16.2 11.5 - 15.5 % 05/24/2024 7:19 PM EDT LABORATORY [facility] PLT 181 140 - 400 K/uL 05/24/2024 7:19 PM EDT LABORATORY [facility] MPV 9.8 6.6 - 11.1 fL 05/24/2024 7:19 PM EDT LABORATORY GM nRBCs 0 <=0 /100 WBCs 05/24/2024 7:19 PM EDT LABORATORY [facility] Blood Venous blood specimen / Unknown Venipuncture / Unknown 05/24/2024 7:06 PM EDT 05/24/2024 7:19 PM EDT [place] Gómez MD LAB BLOOD ORDERABLES LABORATORY [facility] [address] [facility] [place] [address] * TRANSFUSE PACKED RED BLOOD CELLS (05/24/2024 5:00 PM EDT) [place] Gómez MD BLNena BANK TRANFUSE OR DERABLES * TRANSFUSE PACKED RED BLOOD CELLS (05/24/2024 5:00 PM EDT) [place] COTTER BANK TRANFUSE OR DERABLES * PREPARE PACKED RED BLOOD CELLS (05/24/2024 2:05 PM EDT) Unit Product Code [id number] 05/26/2024 12:10 AM EDT LABORATORY [facility] BLOOD BANK Unit Number [id number] 05/26/2024 12:10 AM EDT LABORATORY [facility] BLOOD BANK Unit ABO B 05/26/2024 12:10 AM EDT LABORATORY [facility] BLOOD BANK Unit Rh POS 05/26/2024 12:10 AM EDT LABORATORY [facility] BLOOD BANK Unit Crossmatch Compatible 05/24/2024 2:18 PM EDT LABORATORY [facility] BLOOD BANK Unit Status PT 05/26/2024 12:10 AM EDT LABORATORY [facility] BLOOD BANK Unit Blood Type BPOS 05/26/2024 12:10 AM EDT LABORATORY [facility] BLOOD BANK Unit Expiration [id number] 05/26/2024 12:10 AM EDT LABORATORY [facility] BLOOD BANK Unit Barcode [id number] 05/26/2024 12:10 AM EDT LABORATORY [facility] BLOOD BANK 05/24/2024 2:05 PM EDT Cuba Gómez MD BLD BANK PRODUCT ORD ERABLES LABORATORY [facility] BLOOD BANK [address] [place] [address] * (ABNORMAL) CBC (05/24/2024 1:24 PM EDT) [facility] [address] WBC 11.51(H) 4.00 - 10.80 K/uL 05/24/2024 1:50 PM EDT LABORATORY GM RBC 2.21 4.50 - 5.25 M/uL 05/24/2024 1:50 PM EDT LABORATORY [facility] HGB 6.9(L) 14.0 - 16.8 g/dL 05/24/2024 1:50 PM EDT LABORATORY [facility] HCT 21.3(L) 40.0 - 48.4 % 05/24/2024 1:50 PM EDT LABORATORY [facility] MCV 96.4 82.0 - 99.5 fL 05/24/2024 1:50 PM EDT LABORATORY [facility] MCH 31.2 27.0 - 34.0 pg 05/24/2024 1:50 PM EDT LABORATORY [facility] MCHC 32.4 32.0 - 36.0 g/dL 05/24/2024 1:50 PM EDT LABORATORY [facility] RDW 16.1 11.5 - 15.5 % 05/24/2024 1:50 PM EDT LABORATORY [facility] PLT 165 140 - 400 K/uL 05/24/2024 1:50 PM EDT LABORATORY [facility] MPV 9.9 6.6 - 11.1 fL 05/24/2024 1:50 PM EDT LABORATORY [facility] nRBCs 0 <=0 /100 WBCs 05/24/2024 1:50 PM EDT LABORATORY [facility] Blood Venous blood specimen / Unknown Venipuncture / Unknown 05/24/2024 1:24 PM EDT 05/24/2024 1:42 PM EDT Cuba Gómez MD LAB BLOOD ORDERABLES LABORATORY [facility] [address] [place] [address] * (ABNORMAL) PROCALCITONIN (05/24/2024 5:59 AM EDT) [facility] [address] Procalcitonin 0.57(H) <0.10 ng/mL 05/25/2024 4:12 AM EDT LABORATORY C Blood Venous blood specimen / Unknown Venipuncture / Unknown 05/24/2024 5:59 AM EDT 05/24/2024 6:14 AM EDT Narrative LABORATORY [facility] - 05/25/2024 4:12 AM EDT Less than 0.5 ng/mL: Low risk for progression to sepsis. Review patients condition for localized infections. 0.5 to 2.0 ng/mL: Intermediate risk for progresion to sepsis. Review underlying conditions. Recommend repeat PCT after 6 hours has elapsed. Greater than 2.0 ng/mL: high risk for progression to sepsis unless other causes are known. Trevor Rojas DO LAB BLOOD ORDERA BLES Performing Organization Address [facility] de Phone Number LABORATORY [facility] [address] [place] [address] * (ABNORMAL) IRON SCREEN, INCLUDING TIBC (05/24/2024 5:59 AM EDT) Iron 23(L) 45 - 176 ug/dL 05/24/2024 6:38 PM EDT LABORATORY C Iron Binding Capacity 158(L) 250 - 425 ug/dL 05/24/2024 6:38 PM EDT LABORATORY C Transferrin Saturation Percent 15 15 - 55 % 05/24/2024 6:38 PM EDT LABORATORY [facility] Blood Venous blood specimen / Unknown Venipuncture / Unknown 05/24/2024 5:59 AM EDT 05/24/2024 6:14 AM EDT Cuba Gómez MD LAB BLOOD ORDERABLES Performing Organization Address [facility] Co de Phone Number LABORATORY [facility] [address] [place] [address] * (ABNORMAL) FERRITIN (05/24/2024 5:59 AM EDT) Ferritin 405(H) 30 - 400 ng/mL 05/24/2024 7:04 PM EDT LABORATORY [facility] Blood Venous blood specimen / Unknown Venipuncture / Unknown 05/24/2024 5:59 AM EDT 05/24/2024 6:14 AM EDT Cuba Gómez MD LAB BLOOD ORDERABLES Performing Organization Address [facility] Co de Phone Number LABORATORY GM [address] [place] [address] * (ABNORMAL) PHOSPHORUS (05/24/2024 5:59 AM EDT) Phosphorus 9.2(H) 2.5 - 4.8 mg/dL 05/24/2024 8:01 AM EDT LABORATORY [facility] Blood Venous blood specimen / Unknown Venipuncture / Unknown 05/24/2024 5:59 AM EDT 05/24/2024 6:14 AM EDT Cuba Gómez MD LAB BLOOD ORDERABLES Performing Organization Address [facility] de Phone Number LABORATORY [facility] [address] [place] [address] * (ABNORMAL) MAGNESIUM (05/24/2024 5:59 AM EDT) Magnesium 3.1(H) 1.5 - 2.6 mg/dL 05/24/2024 8:01 AM EDT LABORATORY [facility] Blood Venous blood specimen / Unknown Venipuncture / Unknown 05/24/2024 5:59 AM EDT 05/24/2024 6:14 AM EDT Cuba Gómez MD LAB BLOOD ORDERABLES Performing Organization Address [facility] de Phone Number LABORATORY [facility] [address] [place] [address] * (ABNORMAL) BASIC METABOLIC PANEL (05/24/2024 5:59 AM EDT) BUN 106(H) 6 - 20 mg/dL 05/24/2024 7:04 AM EDT LABORATORY [facility] Creatinine 11.0(H) 0.6 - 1.2 mg/dL 05/24/2024 7:04 AM EDT LABORATORY [facility] Estimated Glomerular Filtration Rate 5(L) >=60 mL/min 05/24/2024 7:04 AM EDT LABORATORY [facility] Comment:eGFR is calculated b ased on the CKD-EPI 2020 equation. Sodium 130(L) 135 - 146 mmol/L 05/24/2024 7:04 AM EDT LABORATORY [facility] Potassium 4.4 3.5 - 5.1 mmol/L 05/24/2024 7:04 AM EDT LABORATORY [facility] Chloride 93(L) 98 - 107 mmol/L 05/24/2024 7:04 AM EDT LABORATORY [facility] CO2 19(L) 22 - 32 mmol/L 05/24/2024 7:04 AM EDT LABORATORY [facility] Anion Gap 18(H) 7 - 15 mmol/L 05/24/2024 7:04 AM EDT LABORATORY [facility] Glucose 102 70 - 120 mg/dL 05/24/2024 7:04 AM EDT LABORATORY [facility] Calcium 8.7 8.4 - 10.2 mg/dL 05/24/2024 7:04 AM EDT LABORATORY C Blood Venous blood specimen / Unknown Venipuncture / Unknown 05/24/2024 5:59 AM EDT 05/24/2024 6:14 AM EDT Cuba Gómez MD LAB BLOOD ORDERABLES LABORATORY [facility] [address] [place] [address] * (ABNORMAL) CBC (05/24/2024 5:59 AM EDT) Pathologist [facility] WBC 12.58(H) 4.00 - 10.80 K/uL 05/24/2024 6:27 AM EDT LABORATORY [facility] RBC 2.33 4.50 - 5.25 M/uL 05/24/2024 6:27 AM EDT LABORATORY [facility] HGB 7.2(L) 14.0 - 16.8 g/dL 05/24/2024 6:27 AM EDT LABORATORY [facility] HCT 22.1(L) 40.0 - 48.4 % 05/24/2024 6:27 AM EDT LABORATORY [facility] MCV 94.8 82.0 - 99.5 fL 05/24/2024 6:27 AM EDT LABORATORY [facility] MCH 30.9 27.0 - 34.0 pg 05/24/2024 6:27 AM EDT LABORATORY [facility] MCHC 32.6 32.0 - 36.0 g/dL 05/24/2024 6:27 AM EDT LABORATORY [facility] RDW 15.9 11.5 - 15.5 % 05/24/2024 6:27 AM EDT LABORATORY [facility] PLT 183 140 - 400 K/uL 05/24/2024 6:27 AM EDT LABORATORY [facility] MPV 10.1 6.6 - 11.1 fL 05/24/2024 6:27 AM EDT LABORATORY [facility] nRBCs 0 <=0 /100 WBCs 05/24/2024 6:27 AM EDT LABORATORY [facility] Blood Venous blood specimen / Unknown Venipuncture / Unknown 05/24/2024 5:59 AM EDT 05/24/2024 6:14 AM EDT Cuba Gómez MD LAB BLOOD ORDERABLES LABORATORY [facility] [address] [place] [address] * (ABNORMAL) CBC (05/23/2024 5:22 PM EDT) WBC 13.08(H) 4.00 - 10.80 K/uL 05/23/2024 5:59 PM EDT LABORATORY [facility] RBC 2.56 4.50 - 5.25 M/uL 05/23/2024 5:59 PM EDT LABORATORY [facility] HGB 8.0(L) 14.0 - 16.8 g/dL 05/23/2024 5:59 PM EDT LABORATORY [facility] HCT 24.6(L) 40.0 - 48.4 % 05/23/2024 5:59 PM EDT LABORATORY [facility] MCV 96.1 82.0 - 99.5 fL 05/23/2024 5:59 PM EDT LABORATORY [facility] MCH 31.3 27.0 - 34.0 pg 05/23/2024 5:59 PM EDT LABORATORY [facility] MCHC 32.5 32.0 - 36.0 g/dL 05/23/2024 5:59 PM EDT LABORATORY [facility] RDW 15.9 11.5 - 15.5 % 05/23/2024 5:59 PM EDT LABORATORY [facility] PLT 221 140 - 400 K/uL 05/23/2024 5:59 PM EDT LABORATORY [facility] MPV 10.0 6.6 - 11.1 fL 05/23/2024 5:59 PM EDT LABORATORY [facility] nRBCs 0 <=0 /100 WBCs 05/23/2024 5:59 PM EDT LABORATORY [facility] Blood Venous blood specimen / Unknown Venipuncture / Unknown 05/23/2024 5:22 PM EDT 05/23/2024 5:39 PM EDT Cuba Gómez MD LAB BLOOD ORDERABLES LABORATORY [facility] [address] [place] [address] * (ABNORMAL) BASIC METABOLIC PANEL (05/23/2024 5:22 PM EDT) BUN 100(H) 6 - 20 mg/dL 05/23/2024 6:11 PM EDT LABORATORY [facility] Creatinine 10.0(H) 0.6 - 1.2 mg/dL 05/23/2024 6:11 PM EDT LABORATORY [facility] Estimated Glomerular Filtration Rate 6(L) >=60 mL/min 05/23/2024 6:11 PM EDT LABORATORY C Comment:eGFR is calculated b ased on the CKD-EPI 2020 equation. Sodium 130(L) 135 - 146 mmol/L 05/23/2024 6:11 PM EDT LABORATORY [facility] Potassium 4.4 3.5 - 5.1 mmol/L 05/23/2024 6:11 PM EDT LABORATORY [facility] Chloride 92(L) 98 - 107 mmol/L 05/23/2024 6:11 PM EDT LABORATORY [facility] CO2 20(L) 22 - 32 mmol/L 05/23/2024 6:11 PM EDT LABORATORY C Anion Gap 18(H) 7 - 15 mmol/L 05/23/2024 6:11 PM EDT LABORATORY [facility] Glucose 97 70 - 120 mg/dL 05/23/2024 6:11 PM EDT LABORATORY [facility] Calcium 8.7 8.4 - 10.2 mg/dL 05/23/2024 6:11 PM EDT LABORATORY [facility] Blood Venous blood specimen / Unknown Venipuncture / Unknown 05/23/2024 5:22 PM EDT 05/23/2024 5:39 PM EDT Dylon Coburn DO LAB BLOOD ORDER LIOR LABORATORY [facility] [address] [place] [address] * HEPATITIS C RNA ADD ON (05/23/2024 2:09 PM EDT) Blood Venous blood specimen / Unknown Venipuncture / Unknown 05/23/2024 2:09 PM EDT 05/23/2024 2:14 PM EDT Kamilla CHAVES LAB BLOOD ORDER LIOR Performing Organization Address City/[facility] Co de Phone Number LABORATORY [facility] [address] [place] [address] * HEPATITIS C ANTIBODY (05/23/2024 2:09 PM EDT) Hepatitis C Antibody Negative Negative 05/23/2024 3:07 PM EDT LABORATORY [facility] Comment:Further HCV quantita tive testing not performed per protocol. Blood Venous blood specimen / Unknown Venipuncture / Unknown 05/23/2024 2:09 PM EDT 05/23/2024 2:14 PM EDT Kamilla CHAVES LAB BLOOD ORDER LIOR LABORATORY [facility] [address] [place] [address] * HEPATITIS B SURFACE ANTIGEN (05/23/2024 2:09 PM EDT) Hepatitis B Surface Antigen Negative Negative 05/23/2024 3:07 PM EDT LABORATORY [facility] Blood Venous blood specimen / Unknown Venipuncture / Unknown 05/23/2024 2:09 PM EDT 05/23/2024 2:14 PM EDT Kamilla Alvarengasenia CHAVES LAB BLOOD ORDER LIOR Performing Organization Address City/[facility]/ZIP Co de Phone Number LABORATORY [facility] [address] [place] [address] * HEPATITIS B SURFACE ANTIBODY (05/23/2024 2:09 PM EDT) Hepatitis B Surface Antibody, Quantitative <3.5 mIU/mL 05/23/2024 3:07 PM EDT LABORATORY [facility] Hepatitis B Surface Antibody, Qualitative Negative 05/23/2024 3:07 PM EDT LABORATORY [facility] Hepatitis B Surface Antibody, Interpretation NOT immune to Hepatitis B Virus 05/23/2024 3:07 PM EDT LABORATORY [facility] Comment: POSITIVE: >=11.5 mIU/mL INDETERMINATE: 8.5-<11.5 mIU/mL NEGATIVE: <8.5 mIU/mL Blood Venous blood specimen / Unknown Venipuncture / Unknown 05/23/2024 2:09 PM EDT 05/23/2024 2:14 PM EDT Kamilla CHAVES LAB BLOOD ORDER LIOR Performing Organization Address [facility]/ZIP Co de Phone Number LABORATORY [facility] [address] [place] [address] * (ABNORMAL) OSMOLALITY, SERUM (05/23/2024 10:27 AM EDT) Pathologist [facility] Osmolality, Serum 322(H) 278 - 305 mOsm/kg 05/23/2024 11:19 AM EDT LABORATORY [facility] Blood Venous blood specimen / Unknown Venipuncture / Unknown 05/23/2024 10:27 AM EDT 05/23/2024 10:55 AM EDT Cuba Gómez MD LAB BLOOD ORDERABLES LABORATORY [facility] [address] [place] [address] * SODIUM, RANDOM URINE (05/23/2024 8:56 AM EDT) Sodium, Random Urine 28 mmol/L 05/23/2024 9:58 AM EDT LABORATORY [facility] Urine Urine specimen / Unknown Non-blood Collection / Unknown 05/23/2024 8:56 AM EDT 05/23/2024 9:04 AM EDT Cuba Gómez MD LAB URINE ORDERABLES Performing Organization Address [facility] Co de Phone Number LABORATORY [facility] [address] [place] [address] * OSMOLALITY, URINE (05/23/2024 8:56 AM EDT) Osmolality, Urine 392 50 - 1,200 mOsm/kg 05/23/2024 9:28 AM EDT LABORATORY [facility] Urine Urine specimen / Unknown Non-blood Collection / Unknown 05/23/2024 8:56 AM EDT 05/23/2024 9:04 AM EDT Cuba Gómez MD LAB URINE ORDERABLES Performing Organization Address City/[facility] Co de Phone Number LABORATORY [place] [address] [place] [address] * (ABNORMAL) BASIC METABOLIC PANEL (05/23/2024 6:44 AM EDT) BUN 102(H) 6 - 20 mg/dL 05/23/2024 7:25 AM EDT LABORATORY [facility] Creatinine 10.0(H) 0.6 - 1.2 mg/dL 05/23/2024 7:25 AM EDT LABORATORY [facility] Estimated Glomerular Filtration Rate 6(L) >=60 mL/min 05/23/2024 7:25 AM EDT LABORATORY [facility] Comment:eGFR is calculated b ased on the CKD-EPI 2020 equation. Sodium 129(L) 135 - 146 mmol/L 05/23/2024 7:25 AM EDT LABORATORY [facility] Potassium 4.2 3.5 - 5.1 mmol/L 05/23/2024 7:25 AM EDT LABORATORY [facility] Chloride 93(L) 98 - 107 mmol/L 05/23/2024 7:25 AM EDT LABORATORY [facility] CO2 20(L) 22 - 32 mmol/L 05/23/2024 7:25 AM EDT LABORATORY [facility] Anion Gap 16(H) 7 - 15 mmol/L 05/23/2024 7:25 AM EDT LABORATORY [facility] Glucose 115 70 - 120 mg/dL 05/23/2024 7:25 AM EDT LABORATORY [facility] Calcium 8.9 8.4 - 10.2 mg/dL 05/23/2024 7:25 AM EDT LABORATORY [facility] Blood Venous blood specimen / Unknown Venipuncture / Unknown 05/23/2024 6:44 AM EDT 05/23/2024 7:00 AM EDT Cuba Gómez MD LAB BLOOD ORDERABLES Performing Organization Address City/[facility] de Phone Number LABORATORY [facility] [address] [place] [address] * (ABNORMAL) CBC (05/23/2024 6:44 AM EDT) WBC 12.17(H) 4.00 - 10.80 K/uL 05/23/2024 7:14 AM EDT LABORATORY [facility] RBC 2.57 4.50 - 5.25 M/uL 05/23/2024 7:14 AM EDT LABORATORY [facility] HGB 7.9(L) 14.0 - 16.8 g/dL 05/23/2024 7:14 AM EDT LABORATORY [facility] HCT 24.6(L) 40.0 - 48.4 % 05/23/2024 7:14 AM EDT LABORATORY [facility] MCV 95.7 82.0 - 99.5 fL 05/23/2024 7:14 AM EDT LABORATORY [facility] MCH 30.7 27.0 - 34.0 pg 05/23/2024 7:14 AM EDT LABORATORY [facility] MCHC 32.1 32.0 - 36.0 g/dL 05/23/2024 7:14 AM EDT LABORATORY [facility] RDW 15.7 11.5 - 15.5 % 05/23/2024 7:14 AM EDT LABORATORY [facility] PLT 210 140 - 400 K/uL 05/23/2024 7:14 AM EDT LABORATORY [facility] MPV 9.9 6.6 - 11.1 fL 05/23/2024 7:14 AM EDT LABORATORY [facility] nRBCs 0 <=0 /100 WBCs 05/23/2024 7:14 AM EDT LABORATORY [facility] Blood Venous blood specimen / Unknown Venipuncture / Unknown 05/23/2024 6:44 AM EDT 05/23/2024 7:00 AM EDT Cuba Gómez MD LAB BLOOD ORDERABLES Performing Organization Address [facility]/ZIP Co de Phone Number LABORATORY [facility] [address] [place] [address] * (ABNORMAL) PHOSPHORUS (05/23/2024 6:44 AM EDT) Phosphorus 9.1(H) 2.5 - 4.8 mg/dL 05/23/2024 7:25 AM EDT LABORATORY [facility] Blood Venous blood specimen / Unknown Venipuncture / Unknown 05/23/2024 6:44 AM EDT 05/23/2024 7:00 AM EDT Vikas Lea MD LAB BLOOD ORDE RABNAOMI Performing Organization Address [facility] Co de Phone Number LABORATORY [facility] [address] [place] [address] * (ABNORMAL) MAGNESIUM (05/23/2024 6:44 AM EDT) Magnesium 3.0(H) 1.5 - 2.6 mg/dL 05/23/2024 7:25 AM EDT LABORATORY [facility] Blood Venous blood specimen / Unknown Venipuncture / Unknown 05/23/2024 6:44 AM EDT 05/23/2024 7:00 AM EDT Vikas Lea MD LAB BLOOD ORDE RABNAOMI LABORATORY [facility] [address] [place] [address] * (ABNORMAL) CBC (05/22/2024 9:19 PM EDT) WBC 11.63(H) 4.00 - 10.80 K/uL 05/22/2024 9:57 PM EDT LABORATORY [facility] RBC 2.76 4.50 - 5.25 M/uL 05/22/2024 9:57 PM EDT LABORATORY [facility] HGB 8.3(L) 14.0 - 16.8 g/dL 05/22/2024 9:57 PM EDT LABORATORY [facility] HCT 26.7(L) 40.0 - 48.4 % 05/22/2024 9:57 PM EDT LABORATORY [facility] MCV 96.7 82.0 - 99.5 fL 05/22/2024 9:57 PM EDT LABORATORY [facility] MCH 30.1 27.0 - 34.0 pg 05/22/2024 9:57 PM EDT LABORATORY [facility] MCHC 31.1 32.0 - 36.0 g/dL 05/22/2024 9:57 PM EDT LABORATORY [facility] RDW 15.6 11.5 - 15.5 % 05/22/2024 9:57 PM EDT LABORATORY [facility] PLT 210 140 - 400 K/uL 05/22/2024 9:57 PM EDT LABORATORY [facility] MPV 10.1 6.6 - 11.1 fL 05/22/2024 9:57 PM EDT LABORATORY [facility] nRBCs 0 <=0 /100 WBCs 05/22/2024 9:57 PM EDT LABORATORY [facility] Blood Venous blood specimen / Unknown Venipuncture / Unknown 05/22/2024 9:19 PM EDT 05/22/2024 9:44 PM EDT Cuba Gómez MD LAB BLOOD ORDERABLES LABORATORY [facility] [address] [place] [address] * (ABNORMAL) URINALYSIS, REFLEX TO CULTURE (05/22/2024 4:51 PM EDT) Color, Urine Light Yellow Colorless, Light Yellow, Yellow, Dark Yellow 05/22/2024 5:45 PM EDT LABORATORY C Clarity, Urine Clear Clear 05/22/2024 5:45 PM EDT LABORATORY [facility] Glucose, Urine Negative Negative mg/dL 05/22/2024 5:45 PM EDT LABORATORY [facility] Bilirubin, Urine Negative Negative 05/22/2024 5:45 PM EDT LABORATORY [facility] Ketone, Urine Negative Negative mg/dL 05/22/2024 5:45 PM EDT LABORATORY [facility] Specific Naylor, Urine 1.018 1.003 - 1.030 05/22/2024 5:45 PM EDT LABORATORY [facility] Blood, Urine Moderate(A) Negative 05/22/2024 5:45 PM EDT LABORATORY [facility] pH, Urine 5.5 5.0 - 7.5 Units 05/22/2024 5:45 PM EDT LABORATORY [facility] Protein, Urine 100(A) Negative mg/dL 05/22/2024 5:45 PM EDT LABORATORY [facility] Urobilinogen, Urine Normal Normal mg/dL 05/22/2024 5:45 PM EDT LABORATORY [facility] Nitrite, Urine Negative Negative 05/22/2024 5:45 PM EDT LABORATORY [facility] Esterase, Urine Negative Negative 05/22/2024 5:45 PM EDT LABORATORY [facility] RBC, Urine 30-49(A) 0 - 2 /HPF 05/22/2024 5:45 PM EDT LABORATORY [facility] WBC, Urine 0-2 0 - 2 /HPF 05/22/2024 5:45 PM EDT LABORATORY [facility] Bacteria, Urine 0-25 0 - 25 /HPF 05/22/2024 5:45 PM EDT LABORATORY [facility] Culture, Urine 05/22/2024 5:45 PM EDT LABORATORY [facility] Comment:Culture not indicate d by urinalysis results Urine Urine specimen / Unknown Non-blood Collection / Unknown 05/22/2024 4:51 PM EDT 05/22/2024 5:02 PM EDT Cuba Gómez MD LAB URINE ORDERABLES LABORATORY [facility] [address] [place] [address] * URINALYSIS, REFLEX TO CULTURE (CUP ONLY) (05/22/2024 4:51 PM EDT) Urinalysis, Reflex to Culture Specimen Specimen collected and received 05/22/2024 7:01 PM EDT LABORATORY [facility] Urine Urine specimen / Unknown Non-blood Collection / Unknown 05/22/2024 4:51 PM EDT 05/22/2024 5:02 PM EDT Cuba Gómez MD LAB URINE ORDERABLES Performing Organization Address City/[facility]/ZIP Co de Phone Number LABORATORY [facility] [address] [place] [address] * (ABNORMAL) PHOSPHORUS (05/22/2024 3:54 PM EDT) Phosphorus 8.5(H) 2.5 - 4.8 mg/dL 05/22/2024 4:32 PM EDT LABORATORY [facility] Blood Venous blood specimen / Unknown Venipuncture / Unknown 05/22/2024 3:54 PM EDT 05/22/2024 3:59 PM EDT Cuba Gómez MD LAB BLOOD ORDERABLES Performing Organization Address [facility]/ZIP Co de Phone Number LABORATORY [facility] [address] [place] [address] * (ABNORMAL) MAGNESIUM (05/22/2024 3:54 PM EDT) Magnesium 3.0(H) 1.5 - 2.6 mg/dL 05/22/2024 4:32 PM EDT LABORATORY [facility] Blood Venous blood specimen / Unknown Venipuncture / Unknown 05/22/2024 3:54 PM EDT 05/22/2024 3:59 PM EDT Cuba Gómez MD LAB BLOOD ORDERABLES Performing Organization Address City/[facility]/ZIP Co de Phone Number LABORATORY [facility] [address] [place] [address] * (ABNORMAL) BASIC METABOLIC PANEL (05/22/2024 3:54 PM EDT) BUN 94(H) 6 - 20 mg/dL 05/22/2024 4:32 PM EDT LABORATORY [facility] Creatinine 9.2(H) 0.6 - 1.2 mg/dL 05/22/2024 4:32 PM EDT LABORATORY [facility] Estimated Glomerular Filtration Rate 6(L) >=60 mL/min 05/22/2024 4:32 PM EDT LABORATORY [facility] Comment:eGFR is calculated b ased on the CKD-EPI 2020 equation. Sodium 130(L) 135 - 146 mmol/L 05/22/2024 4:32 PM EDT LABORATORY [facility] Potassium 4.5 3.5 - 5.1 mmol/L 05/22/2024 4:32 PM EDT LABORATORY [facility] Chloride 95(L) 98 - 107 mmol/L 05/22/2024 4:32 PM EDT LABORATORY [facility] CO2 19(L) 22 - 32 mmol/L 05/22/2024 4:32 PM EDT LABORATORY [facility] Anion Gap 16(H) 7 - 15 mmol/L 05/22/2024 4:32 PM EDT LABORATORY [facility] Glucose 142(H) 70 - 120 mg/dL 05/22/2024 4:32 PM EDT LABORATORY [facility] Calcium 8.7 8.4 - 10.2 mg/dL 05/22/2024 4:32 PM EDT LABORATORY C Blood Venous blood specimen / Unknown Venipuncture / Unknown 05/22/2024 3:54 PM EDT 05/22/2024 3:59 PM EDT Cuba Gómez MD LAB BLOOD ORDERABLES LABORATORY [facility] [address] [place] [address] * (ABNORMAL) CBC (05/22/2024 3:54 PM EDT) WBC 14.89(H) 4.00 - 10.80 K/uL 05/22/2024 4:16 PM EDT LABORATORY [facility] RBC 3.01 4.50 - 5.25 M/uL 05/22/2024 4:16 PM EDT LABORATORY [facility] HGB 9.3(L) 14.0 - 16.8 g/dL 05/22/2024 4:16 PM EDT LABORATORY [facility] HCT 28.6(L) 40.0 - 48.4 % 05/22/2024 4:16 PM EDT LABORATORY [facility] MCV 95.0 82.0 - 99.5 fL 05/22/2024 4:16 PM EDT LABORATORY [facility] MCH 30.9 27.0 - 34.0 pg 05/22/2024 4:16 PM EDT LABORATORY [facility] MCHC 32.5 32.0 - 36.0 g/dL 05/22/2024 4:16 PM EDT LABORATORY [facility] RDW 15.4 11.5 - 15.5 % 05/22/2024 4:16 PM EDT LABORATORY [facility] PLT 217 140 - 400 K/uL 05/22/2024 4:16 PM EDT LABORATORY [facility] MPV 9.7 6.6 - 11.1 fL 05/22/2024 4:16 PM EDT LABORATORY [facility] nRBCs 0 <=0 /100 WBCs 05/22/2024 4:16 PM EDT LABORATORY [facility] Blood Venous blood specimen / Unknown Venipuncture / Unknown 05/22/2024 3:54 PM EDT 05/22/2024 3:59 PM EDT Cuba Gómez MD LAB BLOOD ORDERABLES Performing Organization Address City/State/[facility] de Phone Number LABORATORY [facility] [address] [place] [address] * ABO/RH (05/22/2024 3:49 PM EDT) ABO B 05/22/2024 5:51 PM EDT LABORATORY [facility] BLOOD BANK Rh Positive 05/22/2024 5:51 PM EDT LABORATORY [facility] BLOOD BANK Blood Venous blood specimen / Unknown Venipuncture / Unknown 05/22/2024 3:49 PM EDT 05/22/2024 3:59 PM EDT Vikas Lea MD LAB BLOOD BANK TEST ORDERABLES Performing Organization Address City/[facility] Co de Phone Number LABORATORY [facility] BLOOD BANK [address] [place] [address] * TYPE AND SCREEN (05/22/2024 3:49 PM EDT) ABO B 05/22/2024 5:22 PM EDT LABORATORY [facility] BLOOD BANK Rh Positive 05/22/2024 5:22 PM EDT LABORATORY [facility] BLOOD BANK Red Blood Cell Antibody Screen Negative 05/22/2024 5:22 PM EDT LABORATORY [facility] BLOOD BANK Specimen Expiration Date 05/25/2024 23:59 05/22/2024 5:22 PM EDT LABORATORY [facility] BLOOD BANK Blood Venous blood specimen / Unknown Venipuncture / Unknown 05/22/2024 3:49 PM EDT 05/22/2024 3:59 PM EDT Vikas Lea MD LAB BLOOD BANK TEST ORDERABLES Performing Organization Address [facility] Co de Phone Number LABORATORY [facility] BLOOD BANK [address] [place] [address] * CTA ABD/PELVIS (05/22/2024 11:39 AM EDT) Anatomical Region Laterality Modality Abdomen, Pelvis, Body Computed T omography 05/22/2024 12:3 5 PM EDT Impressions 05/22/2024 12:32 PM EDT IMPRESSION Compared to CT abdomen/pelvis obtained earlier on 05/22/2024: Increased size of the large left perirenal hematoma with 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 Pulmonary edema in the lung bases and small bilateral pleural effusions. Critical Result: The information above was relayed directly by me via secure [employer] messaging to CAMILA ORTIZ on 05/22/2024 at 12:32 pm who expressed understanding. Narrative 05/22/2024 12:32 PM EDT EXAM EXAM: CTA ABD/PELVIS DATE and TIME: 05/22/2024 11:39 am HISTORY CLINICAL INFORMATION: new L subcapsular renal hematoma, please evaluate for pseudoaneursym and fistula formation, [place] kidney biopsy on 05/17 TECHNIQUE No oral contrast was administered. High resolution helical ct of the thorax, abdomen, and pelvis was performed before and during the intravenous administration of contrast. Advanced 3d reconstructions of the aorta and its branch vessels were performed for optimal vascular evaluation on a separate work station. COMPARISON CT abdomen/pelvis 05/22/2024. FINDINGS LOWER CHEST: Bibasilar ground-glass opacities and superimposed interlobular septal thickening. Small bilateral pleural effusions. Partially imaged central venous catheter with tip in the right atrium. No pericardial effusion. LIVER: No focal lesion. GALLBLADDER/BILE DUCTS: Mild nonspecific gallbladder wall thickening. No biliary ductal dilatation. PANCREAS: No focal lesion or main ductal dilatation. GI TRACT: No obstruction. Normal caliber appendix. SPLEEN: Mild splenomegaly, measuring 14.3 cm. No focal lesion. LYMPH NODES: No lymphadenopathy. ADRENAL GLANDS: No nodule. Right kidney/right ureter: No suspicious focal lesion, calculus, or hydronephrosis. LEFT KIDNEY/LEFT URETER: Increased size of the large left subcapsular perinephric hematoma extending along the entire length of the kidney. Hyperdense acute and subacute blood products in the left retroperitoneum results in mass effect on the kidney. Focal blush of contrast at the lateral aspect of the interpolar kidney centered near the margin of the renal parenchyma and perinephric hematoma measures 10 x 6 x 6 mm (10:327). URINARY BLADDER: Unremarkable. REPRODUCTIVE ORGANS: No mass. VASCULATURE: No abdominal aortic aneurysm. MISCELLANEOUS: Mixed density blood products centered in the left retroperitoneum including the perinephric, anterior, and posterior pararenal spaces. MUSCULOSKELETAL: Small fat containing inguinal hernias. Spinal degenerative changes. Procedure Note Watson Lorenzo MD - 05/22/2024 EXAM EXAM: CTA ABD/PELVIS DATE and TIME: 05/22/2024 11:39 am HISTORY CLINICAL INFORMATION: new L subcapsular renal hematoma, please evaluatefor pseudoaneursym and fistula formation, [place] kidney biopsy on 05/17 TECHNIQUE No oral contrast was administered. High resolution helical ct of the thorax, abdomen, and pelvis wasperformed before and during the intravenous administration of contrast. Advanced 3d reconstructions of the aorta and its branch vessels wereperformed for optimal vascular evaluation on a separate work station. COMPARISON CT abdomen/pelvis 05/22/2024. FINDINGS LOWER CHEST: Bibasilar ground-glass opacities and superimposedinterlobular septal thickening. Small bilateral pleural effusions.Partially imaged central venous catheter with tip in the right atrium. Nopericardial effusion. LIVER: No focal lesion. GALLBLADDER/BILE DUCTS: Mild nonspecific gallbladder wall thickening. Nobiliary ductal dilatation. PANCREAS: No focal lesion or main ductal dilatation. GI TRACT: No obstruction. Normal caliber appendix. SPLEEN: Mild splenomegaly, measuring 14.3 cm. No focal lesion. LYMPH NODES: No lymphadenopathy. ADRENAL GLANDS: No nodule. Right kidney/right ureter: No suspicious focal lesion, calculus, orhydronephrosis. LEFT KIDNEY/LEFT URETER: Increased size of the large left subcapsularperinephric hematoma extending along the entire length of the kidney.Hyperdense acute and subacute blood products in the left retroperitoneumresults in mass effect on the kidney. Focal blush of contrast at thelateral aspect of the interpolar kidney centered near the margin of therenal parenchyma and perinephric hematoma measures 10 x 6 x 6 mm(10:327). URINARY BLADDER: Unremarkable. REPRODUCTIVE ORGANS: No mass. VASCULATURE: No abdominal aortic aneurysm. MISCELLANEOUS: Mixed density blood products centered in the leftretroperitoneum including the perinephric, anterior, and posteriorpararenal spaces. MUSCULOSKELETAL: Small fat containing inguinal hernias. Spinaldegenerative changes. 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 Pulmonary edema in the lung bases and small bilateral pleural effusions. Critical Result: The information above was relayed directly by in via secure [employer] connectmessaging to CAMILA ORTIZ on 05/22/2024 at 12:32 pm who expressedunderstanding. Camila Ortiz DO RAD CT * (ABNORMAL) CBC (05/22/2024 7:58 AM EDT) WBC 10.04 4.00 - 10.80 K/uL 05/22/2024 8:38 AM EDT [facility] RBC 3.52 4.50 - 5.25 M/uL 05/22/2024 8:38 AM EDT [facility] HGB 10.4(L) 14.0 - 16.8 g/dL 05/22/2024 8:38 AM EDT [facility] HCT 33.9(L) 40.0 - 48.4 % 05/22/2024 8:38 AM EDT [facility] MCV 96.3 82.0 - 99.5 fL 05/22/2024 8:38 AM EDT [facility] MCH 29.5 27.0 - 34.0 pg 05/22/2024 8:38 AM EDT [facility] MCHC 30.7 32.0 - 36.0 g/dL 05/22/2024 8:38 AM EDT [facility] RDW 14.9 11.5 - 15.5 % 05/22/2024 8:38 AM EDT [facility] PLT 188 140 - 400 K/uL 05/22/2024 8:38 AM EDT [facility] MPV 10.2 6.6 - 11.1 fL 05/22/2024 8:38 AM EDT [facility] nRBCs 0 <=0 /100 WBCs 05/22/2024 8:38 AM EDT [facility] Blood Venous blood specimen / Unknown Venipuncture / Unknown 05/22/2024 7:58 AM EDT 05/22/2024 8:29 AM EDT Vikas Lea MD LAB BLOOD JESUS [facility] Organization Address City/State/ZIP Co de Phone Number LABORATORY [address] [place] [address] * (ABNORMAL) BASIC METABOLIC PANEL (05/22/2024 7:58 AM EDT) BUN 90(H) 6 - 20 mg/dL 05/22/2024 8:57 AM EDT [facility] Creatinine 9.2(H) 0.6 - 1.2 mg/dL 05/22/2024 8:57 AM EDT [facility] Estimated Glomerular Filtration Rate 6(L) >=60 mL/min 05/22/2024 8:57 AM EDT [facility] Comment:eGFR is calculated b ased on the CKD-EPI 2020 equation. Sodium 133(L) 135 - 146 mmol/L 05/22/2024 8:57 AM EDT [facility] Potassium 4.5 3.5 - 5.1 mmol/L 05/22/2024 8:57 AM EDT [facility] Chloride 98 98 - 107 mmol/L 05/22/2024 8:57 AM EDT LABORATORY C CO2 20(L) 22 - 32 mmol/L 05/22/2024 8:57 AM EDT LABORATORY C Anion Gap 15 7 - 15 mmol/L 05/22/2024 8:57 AM EDT LABORATORY C Glucose 141(H) 70 - 120 mg/dL 05/22/2024 8:57 AM EDT [facility] Calcium 8.9 8.4 - 10.2 mg/dL 05/22/2024 8:57 AM EDT LABORATORY [facility] Blood Venous blood specimen / Unknown Venipuncture / Unknown 05/22/2024 7:58 AM EDT 05/22/2024 8:29 AM EDT Vikas Lea MD LAB BLOOD ORDE [facility] Organization Address City/State/ZIP Co de Phone Number LABORATORY [facility] [address] [place] [address] documented in this encounter Visit Diagnoses Diagnosis Renal hematoma Kidney hematoma without rupture of capsule or mention of open wound into cavity Chest pain Chest pain, unspecified Other specified disorders of kidney and ureter Hemoperitoneum Hemoperitoneum (nontraumatic) Chronic pulmonary edema Pulmonary congestion and hypostasis Pleural effusion, not elsewhere classified Exposure to other specified factors, initial encounter Hypertension goal BP (blood pressure) < 140/90 Unspecified essential hypertension Renal hematoma, left Kidney hematoma without rupture of capsule or mention of open wound into cavity ESRD (end stage renal disease) (HCC) End stage renal disease Abdominal pain Abdominal pain, unspecified site Page kidney Secondary renovascular hypertension, unspecified VENKAT (acute kidney injury) (HCC) Acute kidney failure, unspecified Stage 3 chronic kidney disease (HCC) Hyperphosphatemia Disorders of phosphorus metabolism Anemia due to stage 3 chronic kidney disease (HCC) Acute blood loss anemia Acute posthemorrhagic anemia documented in this encounter Administered Medications Inactive Administered Medications - up to 3 most recent administrations Medication Order MAR Action Action Date Dose Rate Site 1/2 NSS 500 mL with sodium bicarbonate 75 mEq infusion Intravenous, at 75 mL/hr, CONTINUOUS, Starting on Tue05/22/24 at 1045, Until Tue05/22/24 at 1855 Rate Verify 05/22/2024 6:00 PM EDT 75 mL/hr New Bag 05/22/2024 4:58 PM EDT 75 mL/hr Rate Verify 05/22/2024 12:12 PM EDT 75 mL/hr 1/2 NSS 500 mL with sodium bicarbonate 75 mEq infusion Intravenous, at 75 mL/hr, CONTINUOUS, Starting on Tue05/22/24 at 1930, Until Tue05/22/24 at 2229 Rate Verify 05/22/2024 11:02 PM EDT 75 mL/hr Continue on Pump 05/22/2024 7:56 PM EDT 75 mL/h r Acetaminophen (Tylenol) tab 650 mg 650 mg, Oral, Q6H, First dose (after last modification) on Tue05/22/24 at 1930, Until Discontinued, Maximum of 4 grams (4000 mg) per day. Given 05/24/2024 5:47 PM EDT 650 mg Given 05/24/2024 1:39 PM EDT 650 mg Given 05/24/2024 6:36 AM EDT 650 mg Acetaminophen (Tylenol) tab 650 mg 650 mg, Oral, Q6H PRN Pain, Mild, Fever >38C(100.5F), Starting on Tue05/25/24 at 0000, Until Tue05/28/24 at 1907, Maximum of 4 grams (4000 mg) per day. Given 05/25/2024 3:00 AM EDT 650 mg amLODIPine (Norvasc) tab 2.5 mg 2.5 mg, Oral, BID (.AM/PM), First dose on Tue05/23/24 at 1045, Until Discontinued Given 05/24/2024 10:34 AM EDT 2.5 mg Given 05/23/2024 8:58 PM EDT 2.5 mg Given 05/23/2024 12:50 PM EDT 2.5 mg amLODIPine (Norvasc) tab 5 mg 5 mg, Oral, BID (.AM/PM), First dose (after last modification) on Tue05/24/24 at 2100, Until Discontinued Given 05/28/2024 7:43 AM EDT 5 mg Given 05/27/2024 8:55 PM EDT 5 mg Given 05/27/2024 8:54 AM EDT 5 mg Bisacodyl (Dulcolax) supp 10 mg 10 mg, Rectal, ONCE, On Tue05/25/24 at 1715, For 1 dose Given 05/25/2024 5:11 PM EDT 10 mg buffered lidocaine 1 % inj Intradermal, ONCE PRN INTRA PROCEDURE, Starting on Tue05/22/24 at 1248, Until Tue05/22/24 at 1248, Intra-Op Given 05/22/2024 12:48 PM EDT 3 mL Carvedilol (Coreg) tab 12.5 mg 12.5 mg, Oral, BID (AM/PM MEALS), First dose on Tue05/22/24 at 1700, Until Discontinued, Hold for HR less than 60 or SBP below 100 and notify service if dose is held MUST BE GIVEN WITH MEAL Given 05/23/2024 8:43 AM EDT 12.5 mg Given 05/22/2024 6:02 PM EDT 12.5 mg Carvedilol (Coreg) tab 18.75 mg 18.75 mg, Oral, BID (AM/PM MEALS), First dose (after last modification) on Tue05/23/24 at 1700, Until Discontinued, Hold for HR less than 60 or SBP below 100 and notify service if dose is held MUST BE GIVEN WITH MEAL Given 05/24/2024 10:34 AM EDT 18.75 mg Given 05/23/2024 6:22 PM EDT 18.75 mg Carvedilol (Coreg) tab 25 mg 25 mg, Oral, BID (AM/PM MEALS), First dose (after last modification) on Tue05/24/24 at 1700, Until Discontinued, Hold for HR less than 60 or SBP below 100 and notify service if dose is held MUST BE GIVEN WITH MEAL Given 05/28/2024 7:43 AM EDT 25 mg Given 05/27/2024 5:22 PM EDT 25 mg Given 05/27/2024 8:55 AM EDT 25 mg cefepime in dextrose (Maxipime) ivpb 1 g 1 g, IV Piggyback, Q24H, 5 doses, First dose on Tue05/26/24 at 0330, Last dose on Tue05/30/24 at 0330, Administer over 30 Minutes, Administer this medication every day. When scheduled dose falls on a dialysis day, administer after hemodialysis. New Bag 05/26/2024 3:56 AM EDT 1 g 100 mL/hr cefepime in dextrose premix ivpb 2 g 2 g, IV Piggyback, ONCE, 1 dose, On Tue05/25/24 at 0400, Administer over 30 Minutes Rate Verify 05/25/2024 4:00 AM EDT 4 g/hr 100 mL/hr New Bag 05/25/2024 3:45 AM EDT 2 g 100 mL/hr chlorHEXIDINE (Periogard) 0.12 % oral rinse 15 mL 15 mL, Oral mucosal membrane, BID (799,1999), First dose on Tue05/22/24 at 2000, Until Discontinued, Include oral/gum/tooth brushing with medication. Use prepackaged oral kit suction tooth brush if available. Given 05/27/2024 6:08 AM EDT 15 mL Given 05/26/2024 7:56 AM EDT 15 mL Given 05/25/2024 8:07 AM EDT 15 mL cholecalciferol (VIT D3) (Vitamin D3) tab 1,000 Units 1,000 Units, Oral, Daily(AM), First dose on Tue05/22/24 at 0900, Until Discontinued, NOTE 1000 units = 25 mcg Given 05/28/2024 7:43 AM EDT 1, 000 Units Given 05/27/2024 8:54 AM EDT 1,000 Units Given 05/26/2024 7:37 AM EDT 1,000 Units fentaNYL (PF) inj ONCE PRN INTRA PROCEDURE, Starting on Tue05/22/24 at 1227, Until Tue05/22/24 at 1435, Intra-Op Given 05/22/2024 2:35 PM EDT 50 mcg Given 05/22/2024 1:29 PM EDT 50 mcg Given 05/22/2024 12:55 PM EDT 50 mcg Furosemide (Lasix) inj 60 mg 60 mg, IV Push, ONCE, On Tue05/23/24 at 1030, For 1 dose Given 05/23/2024 10:25 AM EDT 60 mg Furosemide (Lasix) tab 20 mg 20 mg, Oral, Daily(AM), First dose on Tue05/22/24 at 0900, Until Discontinued Given 05/22/2024 9:47 AM EDT 20 mg hEParin inj 5,000 Units 5,000 Units, Subcutaneous, Q8H, First dose on Tue05/23/24 at 1845, Until Discontinued Given 05/27/2024 6:07 AM EDT 5,000 Units Abdomen Left Lower Given 05/26/2024 9:26 PM EDT 5,000 Units A bdomen Left Lower Given 05/26/2024 6:15 AM EDT 5,000 Units A bdomen Left Lower hydrALAZINE (Apresoline) inj 10 mg 10 mg, Intravenous, ONCE, On Tue05/22/24 at 0830, For 1 dose Given 05/22/2024 8:09 AM EDT 10 mg hydrALAZINE (Apresoline) inj 10 mg 10 mg, Intravenous, Q6H PRN SBP >160, Starting on Tue05/22/24 at 0827, Until Tue05/22/24 at 1553 Given 05/22/2024 2:00 PM EDT 10 mg HYDROmorphone (Dilaudid) inj 0.5 mg 0.5 mg, IV Push, Q6H PRN Pain, Breakthrough, Starting on Tue05/22/24 at 0926, Until Tue05/22/24 at 1008 Given 05/22/2024 10:04 AM EDT 0.5 mg HYDROmorphone (Dilaudid) inj 0.5 mg 0.5 mg, IV Push, Q4H PRN Pain, Breakthrough, Starting on Tue05/22/24 at 1008, Until Heather 05/24/24 at 1129 Given 05/22/2024 12:24 PM EDT 0.5 mg HYDROmorphone (Dilaudid) inj IV Push, ONCE PRN INTRA PROCEDURE, Starting on Tue05/22/24 at 1308, Until Tue05/22/24 at 1308, Intra-Op Given 05/22/2024 1:08 PM EDT 0.5 mg Iopamidol (Isovue 300) inj 300 mL 300 mL, Intra-Arterial, ONCE, On Tue05/22/24 at 1545, For 1 dose, Intra-Op Given 05/22/2024 3:45 PM EDT 150 mL Iopamidol (Isovue 370) inj 100 mL 100 mL, Intravenous, ONCE, On Tue05/25/24 at 0815, For 1 dose, Radiology Medication Routing (Non-IR) Given 05/25/2024 8:15 AM EDT 75 mL Iopamidol (Isovue 370) inj 80 mL 80 mL, Intravenous, ONCE, On Tue05/22/24 at 1215, For 1 dose, Radiology Medication Routing (Non-IR) Given 05/22/2024 12:15 PM EDT 80 mL levothyroxine (Levoxyl) tab 200 mcg 200 mcg, Oral, [id number], First dose on Tue05/22/24 at 0845, Until Discontinued Given 05/28/2024 6:07 AM EDT 200 mcg Given 05/27/2024 6:07 AM EDT 200 mcg Given 05/26/2024 6:15 AM EDT 200 mcg midazolam (Versed) 2 MG/2ML inj ONCE PRN INTRA PROCEDURE, Starting on Tue05/22/24 at 1227, Until Tue05/22/24 at 1435, Intra-Op Given 05/22/2024 2:35 PM EDT 1 mg Given 05/22/2024 1:29 PM EDT 1 mg Given 05/22/2024 12:27 PM EDT 1 mg nitroglycerin (100 mcg/mL) inj ONCE PRN INTRA PROCEDURE, Starting on Tue05/22/24 at 1301, Until Tue05/22/24 at 1301, Intra-Op Given 05/22/2024 1:01 PM EDT 100 mcg Oral Hygiene: Mouth Swab with dentifrice Oral, Q4H LIMITED (00;04;12;16), First dose on Tue05/22/24 at 1600, Until Discontinued, To be used with 1.5% hydrogen peroxide solution or 0.05% cetylpyridium chloride oral rinse Given 05/28/2024 3:29 AM EDT 1 Kit Given 05/27/2024 11:02 PM EDT 1 Kit Given 05/27/2024 4:00 PM EDT oxyCODONE (Oxy IR) tab 5 mg 5 mg, Oral, Q6H PRN Pain, Severe, Starting on Tue05/22/24 at 0756, Until Tue05/22/24 at 1008 Given 05/22/2024 8:06 AM EDT 5 mg oxyCODONE (Oxy IR) tab 5 mg 5 mg, Oral, Q6H PRN Pain, Severe, Starting on Tue05/22/24 at 1557, Until Tue05/22/24 at 1855 Given 05/22/2024 5:05 PM EDT 5 mg oxyCODONE (Roxicodone) oral syrup 2.5 mg 2.5 mg, Oral, Q4H PRN Pain, Moderate, Starting on Tue05/23/24 at 0952, Until Tue05/28/24 at 1907 Polyethylene Glycol 3350 (Miralax) oral powder 17 g 17 g (1 Packet), Oral, Daily(AM), First dose on Tue05/25/24 at 0900, Until Discontinued, Mix in 8 oz of water, juice, soda, coffee, or tea. Given 05/26/2024 7:37 AM EDT 17 g Given 05/25/2024 8:14 AM EDT 17 g Polyethylene Glycol 3350 (Miralax) oral powder 17 g 17 g (1 Packet), Oral, BID (0900,2100), First dose (after last modification) on Tue05/26/24 at 2100, Until Discontinued, Mix in 8 oz of water, juice, soda, coffee, or tea. Given 05/27/2024 8:54 AM EDT 17 g Given 05/26/2024 9:26 PM EDT 17 g senna-docusate (Senokot-S) 1 Tablet 1 Tablet, Oral, Daily(AM), First dose on Tue05/23/24 at 0915, Until Discontinued, Hold if having >2 BM / day Given 05/24/2024 10:34 AM EDT 1 Tablet Given 05/23/2024 10:25 AM EDT 1 Tablet senna-docusate (Senokot-S) 1 Tablet 1 Tablet, Oral, BID (.AM/PM), First dose (after last modification) on Tue05/25/24 at 0900, Until Discontinued, Hold if having >2 BM / day Given 05/27/2024 8:54 AM EDT 1 Tablet Given 05/26/2024 9:27 PM EDT 1 Tablet Given 05/26/2024 7:37 AM EDT 1 Tablet Sevelamer Carbonate (Renvela) tab 800 mg 800 mg, Oral, WITH MEALS, First dose on Tue05/22/24 at 1200, Until Discontinued, Do Not Crush or Break tablets Given 05/28/2024 12:00 PM EDT 800 mg Given 05/27/2024 5:22 PM EDT 800 mg Given 05/27/2024 12:18 PM EDT 800 mg Simethicone (Mylicon) chew tab 80 mg 80 mg, Oral, Q6H PRN Indigestion, Gas, Starting on Tue05/23/24 at 0511, Until Tue05/28/24 at 1907, Tablets need to be chewed before swallowing! Given 05/23/2024 6:35 AM EDT 80 mg sodium chloride 0.9 % flush peripheral jordan 3 mL 3 mL, IV Push, Q8H, First dose on Tue05/22/24 at 1500, Until Discontinued, Do not flush if lock, PICC, or central line not in place; IV infusing or unable to flush. Given 05/28/2024 3:29 AM EDT 3 mL Given 05/27/2024 8:56 PM EDT 3 mL Given 05/27/2024 2:00 PM EDT 3 mL sodium chloride 0.9 % flush/inj 3 mL 3 mL, IV Push, PRN Other, Line Patency, Starting on Tue05/22/24 at 0746, Until Tue05/28/24 at 1907, Do not flush if lock, PICC, or central line not in place, IV infusing or unable to flush sodium citrate 4% (Anticoagulant Sodium Citrate) inj 3 mL 3 mL, Dialysis catheter, ON DIALYSIS, Starting on Tue05/23/24 at 1344, Until Tue05/28/24 at 1907, For 7 doses, Use only by dialysis nurse- For use only to lock dialysis catheter after dialysis Given 05/28/2024 11:18 AM EDT 3 mL Given 05/26/2024 11:27 AM EDT 3 mL Given 05/25/2024 2:29 PM EDT 3 mL tap water enema 1 Enema 1 Enema, Rectal, ONCE, On Tue05/25/24 at 1930, For 1 dose Given By 05/25/2024 7:30 PM EDT 1 Enema Vancomycin (Vancocin) 2,500 mg in NSS 500 mL ivpb 2,500 mg, IV Piggyback, ONCE, 1 dose, On Tue05/25/24 at 0415 Rate Verify 05/25/2024 7:00 AM EDT 1,000 mg/hr 214 mL/hr Rate Verify 05/25/2024 6:00 AM EDT 1,000 mg/hr 214 mL/hr Rate Verify 05/25/2024 5:00 AM EDT 1,000 mg/hr 214 mL/hr documented in this encounter Active and Recently Administered Medications Times are shown in EDT. Scheduled Medication Order 05/26/2024 05/27/2024 05/28/2024 amLODIPine (Norvasc) tab 5 mg 5 mg, Oral, BID (.AM/PM), First dose (after last modification) on Heather 05/24/24 at 2100, Until Discontinued 0737 (Given - Provider: Rama Arndt RN)212 (Given - Provider: Dylon Gunderson RN) 0854 (Given - Provider: Rama Arndt RN)205 (Given - Provider: [place], [place]) 0743 (Given - Provider[place]) Carvedilol (Coreg) tab 25 mg 25 mg, Oral, BID (AM/PM MEALS), First dose (after last modification) on Heather 05/24/24 at 1700, Until Discontinued, Hold for HR less than 60 or SBP below 100 and notify service if dose is held MUST BE GIVEN WITH MEAL 0738 (Given - Provider: Rama Arndt RN)1801 (Given - Provider: R[place], [place] 0855 (Given - Provider: Rama [place]ndt[place])1722 (Given - Provider: Jordana Carvajal RN) 0743 (Given - Provider: Rama Arndt RN) cefepime in dextrose (Maxipime) ivpb 1 g (CANCELED) 1 g, IV Piggyback, Q24H, 5 doses, First dose on 05/26/24 at 0330, Last dose on Tue05/30/24 at 0330, Administer over 30 Minutes, Administer this medication every day. When scheduled dose falls on a dialysis day, administer after hemodialysis. 0356 (New Bag - Provider: Dylon Gunderson RN)0426 (Stopped - Provider: Dylon Gunderson RN) chlorHEXIDINE (Periogard) 0.12 % oral rinse 15 mL 15 mL, Oral mucosal membrane, BID (799,1999), First dose on Tue05/22/24 at 1999, Until Discontinued, Include oral/gum/tooth brushing with medication. Use prepackaged oral kit suction tooth brush if available. 0756 (Given - Provider: Rama Arndt RN)1999 (Not Given - Provider: Dylon Gunderson RN - Reason: Refused-Notify Provider) 0608 (Given - Provider: Dylon Gunderson RN)1999 (Not Given - Provider: Sandra Kingsley RN - Reason: Refused-Notify Provider - Comment: Jerardo ACOSTA aware) 0800 (Not Given - Provider: Rama Arndt RN - Reason: Other- Please add reason in Comments - Comment: used toothbrush and tooth paste) cholecalciferol (VIT D3) (Vitamin D3) tab 1,000 Units 1,000 Units, Oral, Daily(AM), First dose on Tue05/22/24 at 0900, Until Discontinued, NOTE 1000 units = 25 mcg 0737 (Given - Provider: Rama Arndt RN) 0854 (Given - Provider: Rama Arndt RN) 0743 (Given - Provider: Rama Arndt, RN) hEParin inj 5,000 Units 5,000 Units, Subcutaneous, Q8H, First dose on Tue05/23/24 at 1845, Until Discontinued 0615 (Given - Provider: Dylon Gunderson RN)1400 (Not Given - Provider: Rama Arndt RN - Reason: Refused-Notify Provider)2126 (Given - Provider: Dylon Gunderson RN) 0607 (Given - Provider: Dylon Gunderson RN)1400 (Not Given - Provider: Rama Arndt RN - Reason: Refused-Notify Provider)2200 (Not Given - Provider: Sandra Kingsley RN - Reason: Refused-Notify Provider - Comment: Jerardo ACOSTA aware) 0600 (Not Given - Provider: Sandra Kingsley RN - Reason: Refused-Notify Provider - Comment: Tutu Nair aware)1400 (Not Given - Provider: Rama Arndt RN - Reason: Refused-Notify Provider) levothyroxine (Levoxyl) tab 200 mcg 200 mcg, Oral, [id number], First dose on Tue05/22/24 at 0845, Until Discontinued 0615 (Given - Provider: Dylon Gunderson RN) 0607 (Given - Provider: Dylon Gunderson RN) 0607 (Given - Provider: Sandra Kingsley RN) Oral Hygiene: Mouth Swab with dentifrice Oral, Q4H LIMITED (00;04;12;16), First dose on Tue05/22/24 at 1600, Until Discontinued, To be used with 1.5% hydrogen peroxide solution or 0.05% cetylpyridium chloride oral rinse 0000 (Not Given - Provider: Dylon Gunderson RN - Reason: Refused-Notify Provider)0400 (Not Given - Provider: Dylon Gunderson RN - Reason: Refused-Notify Provider)1200 (Given - Provider: Rama Arndt RN)1600 (Not Given - Provider: Rama Arndt RN - Reason: Order Clarified - Comment: brushed teeth with toothbrush and toothpaste) 0000 (Not Given - Provider: Dylon Gunderson RN - Reason: Refused-Notify Provider)0400 (Given - Provider: Dylon Gunderson RN)1200 (Not Given - Provider: Rama Arndt RN - Reason: Refused-Notify Provider)1600 (Given - Provider: Jordana Carvajal RN)2302 (Given - Provider: Sandra [place], [place]) 0329 (Given - Provider: [place], [place])1200 (Not Given - Provider: Rama Arndt RN - Reason: Other- Please add reason in Comments - Comment: dialysis) Polyethylene Glycol 3350 (Miralax) oral powder 17 g (CANCELED) 17 g (1 Packet), Oral, Daily(AM), First dose on Tue05/25/24 at 0900, Until Discontinued, Mix in 8 oz of water, juice, soda, coffee, or tea. 0737 (Given - Provider: Rama Arndt RN) Polyethylene Glycol 3350 (Miralax) oral powder 17 g (CANCELED) 17 g (1 Packet), Oral, BID (899,2099), First dose (after last modification) on Tue05/26/24 at 2100, Until Discontinued, Mix in 8 oz of water, juice, soda, coffee, or tea. 2125 (Given - Provider: Dylon Gunderson RN) 0854 (Given - Provider: Rama Arndt RN)2099 (Not Given - Provider: Sandra Kingsley RN - Reason: Refused-Notify Provider - Comment: Jerardo ACOSTA aware) 0900 (Not Given - Provider: Rama Arndt RN - Reason: Refused-Notify Provider) senna-docusate (Senokot-S) 1 Tablet (CANCELED) 1 Tablet, Oral, BID (.AM/PM), First dose (after last modification) on Tue05/25/24 at 0900, Until Discontinued, Hold if having >2 BM / day 0737 (Given - Provider: Rama Arndt RN)2126 (Given - Provider: Dylon Gunderson RN) 0854 (Given - Provider: Rama Arndt RN)2099 (Not Given - Provider: Sandra Kingsley RN - Reason: Refused-Notify Provider - Comment: Jerardo A[place] aware) 0900 (Not Given - Provider: Rama Arndt RN - Reason: Refused-Notify Provider) Sevelamer Carbonate (Renvela) tab 800 mg 800 mg, Oral, WITH MEALS, First dose on Tue05/22/24 at 1200, Until Discontinued, Do Not Crush or Break tablets 0800 (Not Given - Provider: Rama Arndt RN - Reason: Other-Notify Provider - Comment: dialysis and did not eat)1201 (Given - Provider: Rama Arndt RN)1801 (Given - Provider: Rama Arndt RN) 0907 (Given - Provider: Rama Arndt RN)1218 (Given - Provider: Rama Arndt, [place])1722 (Given - Provider: Jordana Carvajal RN) 0800 (Not Given - Provider: Rama Arndt RN - Reason: Other- Please add reason in Comments - Comment: did not eat- went to dialysis)1200 (Given - Provider: Rama Arndt, RN) sodium chloride 0.9 % flush peripheral jordan 3 mL 3 mL, IV Push, Q8H, First dose on Tue05/22/24 at 1500, Until Discontinued, Do not flush if lock, PICC, or central line not in place; IV infusing or unable to flush. 0615 (Given - Provider: Dylon Gunderson, [place])1400 (Given - Provider: Rama Arndt RN)2200 (Given - Provider: Dylon Gunderson RN) 0608 (Given - Provider: Dylon Gunderson, [place])1400 (Given - Provider: Rama Arndt RN)2056 (Given - Provider: Sandra Kingsley, [place]) 0329 (Given - Provider: Sandra Kingsley, [place])1400 (Not Given - Provider: Rama Arndt RN - Reason: Refused-Notify Provider) sodium citrate 4% (Anticoagulant Sodium Citrate) inj 3 mL 3 mL, Dialysis catheter, ON DIALYSIS, Starting on Tue05/23/24 at 1344, Until Tue05/28/24 at 1907, For 7 doses, Use only by dialysis nurse- For use only to lock dialysis catheter after dialysis 1127 (Given - Provider: Lori Jensen LPN) 1118 (Given - Provider: Taylor Jane RN) PRN Medication Order 05/26/2024 05/27/2024 05/28/2024 Acetaminophen (Tylenol) tab 650 mg 650 mg, Oral, Q6H PRN Pain, Mild, Fever >38C(100.5F), Starting on Tue05/25/24 at 0000, Until Tue05/28/24 at 1907, Maximum of 4 grams (4000 mg) per day. oxyCODONE (Roxicodone) oral syrup 2.5 mg 2.5 mg, Oral, Q4H PRN Pain, Moderate, Starting on Tue05/23/24 at 0952, Until Tue05/28/24 at 1907 Simethicone (Mylicon) chew tab 80 mg 80 mg, Oral, Q6H PRN Indigestion, Gas, Starting on Tue05/23/24 at 0511, Until Tue05/28/24 at 1907, Tablets need to be chewed before swallowing! sodium chloride 0.9 % flush/inj 3 mL 3 mL, IV Push, PRN Other, Line Patency, Starting on Tue05/22/24 at 0746, Until Tue05/28/24 at 1907, Do not flush if lock, PICC, or central line not in place, IV infusing or unable to flush documented in this encounter Advance Directives * [...] Advance Directives occurred with: Patient Care Teams Flame Degreaser Relationship Specialty Start Date End Date Sonya Dacosta MD [address] [place] [address] PCP - General Family Medicine 04/27/24 documented as of this encounter
--- OUTSIDE RECORDS SUMMARY | 2024-07-09 07:10 | External Medical Summary ---
Author Name Unknown Address Unknown Organization [id number]:LABORATORY [facility] [place] [address] [place] [address] Laboratory Report Ordering Provider Test Date Status ELMIRA CABRERA 05/26/2024 05:47:00 Final Observation Date Value Abnormality Reference (Units ) Status Magnesium 05/26/2024 05:47:00 2.7 Above high normal 1. 5-2.6 (mg/dL) Final Performing Location [facility] - [address] [place] [address]
--- OUTSIDE RECORDS SUMMARY | 2024-07-09 07:10 | External Medical Summary ---
Author Name Unknown Address Unknown Organization [id number]:LAB[facility]ATORY [facility] - [address] [place] [address] Laboratory Report Ordering Provider Test Date Status ELMIRA CABRERA 05/25/2024 03:43:00 Final Observation Date Value Abnormality Reference (Units ) Status Phosphate 05/25/2024 03:43:00 7.3 Above high normal 2. 5-4.8 (mg/dL) Final Performing Location [facility] - [address] [place] [address]
--- OUTSIDE RECORDS SUMMARY | 2024-07-09 07:10 | External Medical Summary ---
Author Name Unknown Address Unknown Organization K01:[facility]ORY [facility] - [address] [place] [address] Laboratory Report Ordering Provider Test Date Status DALY CHAPARRO 05/26/2024 05:47:00 Final Observation Date Value Abnormality Reference (Units ) Status Vancomycin, level 05/26/2024 05:47:00 21.2 10 .0-40.0 (ug/mL) Final Performing Location [facility] - [address] [place] [address]
--- OUTSIDE RECORDS SUMMARY | 2024-07-09 07:10 | External Medical Summary ---
Author Name Unknown Address Unknown Organization [id number]:LABORATORY [facility] - [facility] [address] [place] [address] Laboratory Report Ordering Provider Test Date Status KONSTANTIN ROBERTS 05/25/2024 03:43:00 Final Less than 0.5 ng/mL: Low ris k for progression to sepsis. Review patients condition for localized infections.

0.5 to 2.0 ng/mL: Intermediate risk for progresion to sepsis. Review underlying conditions. Recommend repeat PCT after 6 hours has elapsed.

Greater than 2.0 ng/mL: high risk for progression to sepsis unless other causes are known. Observation Date Value Abnormality Reference (Units ) Status Procalcitonin [Mass/volume] in Serum or Plasma by Immunoassay 05/25/2024 03:43:00 0.70 Above high normal <0.10 (ng/mL) Final Performing Location LABORATORY [facility] - [facility] [place] [address] [place] [address]
--- OUTSIDE RECORDS SUMMARY | 2024-07-09 07:10 | External Medical Summary ---
Author Name Unknown Address Unknown Organization [id number]:[facility]ATORY [facility] [place] - [address] [place] [address] [facility] [address] Laboratory Report Ordering Provider Test Date Status ELMIRA CABRERA 05/23/2024 06:44:00 Final Observation Date Value Abnormality Reference (Units ) Status WBC, Total 05/23/2024 06:44:00 12.17 Above high normal 4.00-10.80 (K/uL) Final RBC 05/23/2024 06:44:00 2.57 4.50-5.25 (M/uL) Final Hemoglobin 05/23/2024 06:44:00 7.9 Below low normal 14.0-16.8 (g/dL) Final HCT 05/23/2024 06:44:00 24.6 Below low normal 40.0-48.4 (%) Final MCV 05/23/2024 06:44:00 95.7 82.0-99.5 (fL) Final MCH 05/23/2024 06:44:00 30.7 27.0-34.0 (pg) Final MCHC 05/23/2024 06:44:00 32.1 32.0-36.0 (g/dL) Final RDW 05/23/2024 06:44:00 15.7 11.5-15.5 (%) Final Platelets 05/23/2024 06:44:00 210 140-400 (K/uL) Final MPV 05/23/2024 06:44:00 9.9 6.6-11.1 (fL) Final Nucleated erythrocytes/100 leukocytes [Ratio] in Blood by Automated count 05/23/2024 06:44:00 0 <=0 (/100 WBCs) Final Performing Location LABORATORY [facility] [place] - [address] [facility] [address]
--- OUTSIDE RECORDS SUMMARY | 2024-07-09 07:10 | External Medical Summary ---
Author Name Unknown Address Unknown Organization K01:[facility]ORY [facility] [place] [address] [place] [address] Laboratory Report Ordering Provider Test Date Status MARC VUONG 05/23/2024 06:44:00 Final Observation Date Value Abnormality Reference (Units ) Status Phosphate 05/23/2024 06:44:00 9.1 Above high normal 2. 5-4.8 (mg/dL) Final Performing Location [facility] - [address] [place] [address]
--- OUTSIDE RECORDS SUMMARY | 2024-07-09 07:10 | External Medical Summary ---
Author Name Unknown Address Unknown Organization K01:[facility] [place] [address] [place] [address] Laboratory Report Ordering Provider Test Date Status KONSTANTIN ROBERTS 05/25/2024 03:43:00 Final Observation Date Value Abnormality Reference (Units ) Status Lactic Acid 05/25/2024 03:43:00 0.8 0.4-2.0 (mmol/L) Final Performing Location LAB[facility]ATORY [facility] - [address] [place] [address]
--- OUTSIDE RECORDS SUMMARY | 2024-07-09 07:10 | External Medical Summary ---
Author Name Unknown Address Unknown Organization K01:[facility]ORY [facility] [place] [address] [place] [address] Laboratory Report Ordering Provider Test Date Status ELMIRA CABRERA 05/26/2024 17:16:00 Final Observation Date Value Abnormality Reference (Units ) Status WBC, Total 05/26/2024 17:16:00 11.95 Above high normal 4.00-10.80 (K/uL) Final RBC 05/26/2024 17:16:00 2.68 4.50-5.25 (M/uL) Final Hemoglobin 05/26/2024 17:16:00 8.2 Below low normal 14.0-16.8 (g/dL) Final HCT 05/26/2024 17:16:00 26.1 Below low normal 40.0-48.4 (%) Final MCV 05/26/2024 17:16:00 97.4 82.0-99.5 (fL) Final MCH 05/26/2024 17:16:00 30.6 27.0-34.0 (pg) Final MCHC 05/26/2024 17:16:00 31.4 32.0-36.0 (g/dL) Final RDW 05/26/2024 17:16:00 16.6 11.5-15.5 (%) Final Platelets 05/26/2024 17:16:00 244 140-400 (K/uL) Final MPV 05/26/2024 17:16:00 9.9 6.6-11.1 (fL) Final Nucleated erythrocytes/100 leukocytes [Ratio] in Blood by Automated count 05/26/2024 17:16:00 0 <=0 (/100 WBCs) Final Performing Location LAB[facility]ORY [facility] [place] [address] [place] [address]
--- OUTSIDE RECORDS SUMMARY | 2024-07-09 07:10 | External Medical Summary ---
Author Name Unknown Address Unknown Organization K01:[facility] [place] [address] [place] [address] Laboratory Report Ordering Provider Test Date Status KONSTANTIN ROBERTS 05/25/2024 03:43:00 Final Observation Date Value Abnormality Reference (Units ) Status Bacteria identified in Specimen by Culture 05/25/2024 03:43:00 No growth Final Test: Culture, Blood (Site 2)
Specimen Source: Blood, Venous
Specimen Type: Blood
Specimen Date: 05/25/2024 0343
Result Date: 05/30/2024 0501
Result Status: Final result
Resulting Lab: [facility] [place]
[address]
[place] [address]

CULTURE

No growth

null Performing Location [facility] [place] [address] [place] [address]
--- OUTSIDE RECORDS SUMMARY | 2024-07-09 07:10 | External Medical Summary ---
Author Name Unknown Address Unknown Organization K01:[facility] [place] [address] [place] [address] Laboratory Report Ordering Provider Test Date Status DEBORAHELMIRA 05/24/2024 05:59:00 Final Observation Date Value Abnormality Reference (Units ) Status Ferritin 05/24/2024 05:59:00 405 Above high normal 30 -400 (ng/mL) Final Performing Location [facility] - [address] [place] [address]
--- OUTSIDE RECORDS SUMMARY | 2024-07-09 07:10 | External Medical Summary ---
Author Name Unknown Address Unknown Organization K01:LAB[facility]ORY [facility] - [address] [place] [address] Laboratory Report Ordering Provider Test Date Status ELMIRA CABRERA 05/28/2024 06:13:00 Final Observation Date Value Abnormality Reference (Units ) Status Phosphate 05/28/2024 06:13:00 5.9 Above high normal 2. 5-4.8 (mg/dL) Final Performing Location [facility] - [address] [place] [address]
--- OUTSIDE RECORDS SUMMARY | 2024-07-09 07:10 | External Medical Summary ---
Author Name Unknown Address Unknown Organization K01:[place] [place] [address] [facility] [address] Laboratory Report Ordering Provider Test Date Status ELMIRA CABRERA 05/24/2024 05:59:00 Final Observation Date Value Abnormality Reference (Units ) Status Magnesium 05/24/2024 05:59:00 3.1 Above high normal 1. 5-2.6 (mg/dL) Final Performing Location [facility] - [address] [place] [address]
--- OUTSIDE RECORDS SUMMARY | 2024-07-09 07:10 | External Medical Summary ---
Author Name Unknown Address Unknown Organization K01:[place] [facility] [place] [facility] [address] [place] [address] Laboratory Report Ordering Provider Test Date Status ELMIRA CABRERA 05/25/2024 17:10:00 Final Observation Date Value Abnormality Reference (Units ) Status WBC, Total 05/25/2024 17:10:00 12.95 Above high normal 4.00-10.80 (K/uL) Final RBC 05/25/2024 17:10:00 2.44 4.50-5.25 (M/uL) Final Hemoglobin 05/25/2024 17:10:00 7.6 Below low normal 14.0-16.8 (g/dL) Final HCT 05/25/2024 17:10:00 23.0 Below low normal 40.0-48.4 (%) Final MCV 05/25/2024 17:10:00 94.3 82.0-99.5 (fL) Final MCH 05/25/2024 17:10:00 31.1 27.0-34.0 (pg) Final MCHC 05/25/2024 17:10:00 33.0 32.0-36.0 (g/dL) Final RDW 05/25/2024 17:10:00 16.8 11.5-15.5 (%) Final Platelets 05/25/2024 17:10:00 197 140-400 (K/uL) Final MPV 05/25/2024 17:10:00 9.6 6.6-11.1 (fL) Final Nucleated erythrocytes/100 leukocytes [Ratio] in Blood by Automated count 05/25/2024 17:10:00 0 <=0 (/100 WBCs) Final Performing Location [facility] [place] [address] [place] [address]
--- OUTSIDE RECORDS SUMMARY | 2024-07-09 07:10 | External Medical Summary ---
Author Name Unknown Address Unknown Organization : Laboratory Report Ordering Provider Test Date Status MITRA MORRIS 05/23/2024 14:09:00 Final Observation Date Value Abnormality Reference (Units ) Status Performing Location
--- OUTSIDE RECORDS SUMMARY | 2024-07-09 07:10 | External Medical Summary ---
Author Name Unknown Address Unknown Organization K01:LABORATORY [facility] [place] - [facility] [address] [place] [address] Laboratory Report Ordering Provider Test Date Status ELMIRA CABRERA 05/24/2024 19:06:00 Final Observation Date Value Abnormality Reference (Units ) Status WBC, Total 05/24/2024 19:06:00 11.08 Above high normal 4.00-10.80 (K/uL) Final RBC 05/24/2024 19:06:00 2.47 4.50-5.25 (M/uL) Final Hemoglobin 05/24/2024 19:06:00 7.7 Below low normal 14.0-16.8 (g/dL) Final HCT 05/24/2024 19:06:00 23.4 Below low normal 40.0-48.4 (%) Final MCV 05/24/2024 19:06:00 94.7 82.0-99.5 (fL) Final MCH 05/24/2024 19:06:00 31.2 27.0-34.0 (pg) Final MCHC 05/24/2024 19:06:00 32.9 32.0-36.0 (g/dL) Final RDW 05/24/2024 19:06:00 16.2 11.5-15.5 (%) Final Platelets 05/24/2024 19:06:00 181 140-400 (K/uL) Final MPV 05/24/2024 19:06:00 9.8 6.6-11.1 (fL) Final Nucleated erythrocytes/100 leukocytes [Ratio] in Blood by Automated count 05/24/2024 19:06:00 0 <=0 (/100 WBCs) Final Performing Location LABORATORY [facility] [place] - [address] [place] [address]
--- OUTSIDE RECORDS SUMMARY | 2024-07-09 07:10 | External Medical Summary ---
Author Name Unknown Address Unknown Organization K01:[place] [facility] [place] [facility] [address] [place] [address] Laboratory Report Ordering Provider Test Date Status ELMIRA CABRERA 05/28/2024 06:13:00 Final Observation Date Value Abnormality Reference (Units ) Status WBC, Total 05/28/2024 06:13:00 11.28 Above high normal 4.00-10.80 (K/uL) Final RBC 05/28/2024 06:13:00 2.57 4.50-5.25 (M/uL) Final Hemoglobin 05/28/2024 06:13:00 7.8 Below low normal 14.0-16.8 (g/dL) Final HCT 05/28/2024 06:13:00 24.9 Below low normal 40.0-48.4 (%) Final MCV 05/28/2024 06:13:00 96.9 82.0-99.5 (fL) Final MCH 05/28/2024 06:13:00 30.4 27.0-34.0 (pg) Final MCHC 05/28/2024 06:13:00 31.3 32.0-36.0 (g/dL) Final RDW 05/28/2024 06:13:00 15.9 11.5-15.5 (%) Final Platelets 05/28/2024 06:13:00 286 140-400 (K/uL) Final MPV 05/28/2024 06:13:00 9.8 6.6-11.1 (fL) Final Nucleated erythrocytes/100 leukocytes [Ratio] in Blood by Automated count 05/28/2024 06:13:00 0 <=0 (/100 WBCs) Final Performing Location [facility] [facility] [place] [address] [place] [address]
--- OUTSIDE RECORDS SUMMARY | 2024-07-09 07:10 | External Medical Summary ---
Author Name Unknown Address Unknown Organization K01:LABOR[facility]ORY [facility] [place] - [facility] [address] [facility] [address] Laboratory Report Ordering Provider Test Date Status ELMIRA CABRERA 05/25/2024 03:43:00 Final Observation Date Value Abnormality Reference (Units ) Status BUN 05/25/2024 03:43:00 89 Above high normal 6-20 (mg/dL) Final Creatinine 05/25/2024 03:43:00 9.6 Above high normal 0.6-1.2 (mg/dL) Final Glomerular filtration rate/1.73 sq M.predicted [Volume Rate/Area] in Serum, Plasma or Blood by Creatinine-based formula (CKD-EPI) 05/25/2024 03:43:00 6 Below low normal >=60 (mL/min) Final eGFR is calculated based on the CKD-EPI 2020 equation. Sodium 05/25/2024 03:43:00 129 Below low normal 135 -146 (mmol/L) Final Potassium 05/25/2024 03:43:00 4.3 3.5-5.1 (m mol/L) Final Cl 05/25/2024 03:43:00 93 Below low normal 98- 107 (mmol/L) Final CO2 05/25/2024 03:43:00 18 Below low normal 22- 32 (mmol/L) Final Anion gap 05/25/2024 03:43:00 18 Above high normal 7- 15 (mmol/L) Final Glucose 05/25/2024 03:43:00 104 70-120 (mg /dL) Final Calcium 05/25/2024 03:43:00 8.6 8.4-10.2 ( mg/dL) Final Performing Location LABORATORY [facility] [place] - [address] [place] [address]
--- OUTSIDE RECORDS SUMMARY | 2024-07-09 07:10 | External Medical Summary ---
Author Name Unknown Address Unknown Organization K01:[place] [facility] [place] [address] [place] [address] Laboratory Report Ordering Provider Test Date Status DEBORAHELMIRA 05/23/2024 08:56:33 Final Observation Date Value Abnormality Reference (Units ) Status Sodium, Urine 05/23/2024 08:56:33 28 (mmol/ L) Final Performing Location LABORATORY [facility] - [address] [place] [address]
--- OUTSIDE RECORDS SUMMARY | 2024-07-09 07:10 | External Medical Summary | Summary of Care ---
Author Name Unknown Organization [facility] Address [address] [place] [address] Phone [phone] Care Team Providers Care Network Consultant Name Role Phone Sonya Dacosta MD Primary Care Provider Reason for Visit * Reason Onset Date Comments Health Maintenance 05/23/2024 Encounter Details Date Type Department Care Team (Late st Contact Info) Description 05/23/2024 Telephone Family Practice [facility] [place] [address] [place] [address] Sonya Dacosta MD [address] [place] [address] Health Maintenance Allergies Active Allergy Reactions Criticality Noted Date Comments Amoxicillin Hives 02/07/2014 Nsaids Edema face/lips/tongue High 02/07/2014 Penicillins Hives 02/07/2014 documented as of this encounter (statuses as of 05/23/2024) Medications Medication Sig Dispensed Refills Start Date End Date Status Levothyroxine Sodium 200 MCG Oral Tablet (Levoxyl) Take 1 Tablet by mouth in the morning. Takes at bedtime . 12/28/2023 Suspended Multivitamin Adult (Minerals) Oral Tablet 1 Tablet in the morning. 03/29/2024 Suspended Vitamin D3 50 MCG (1999 UT) Oral Capsule Take 1 Capsule by mouth in the morning. 90 Capsule 3 04/11/2024 Suspended Additional Information Carvedilol 12.5 MG Oral Tablet (Coreg) Take 1.5 Tablets by mouth in the morning and 1.5 Tablets before bedtime. 270 Tablet 3 04/23/2024 Suspended Additional Information Ventolin HFA 108 (90 Base) MCG/ACT Inhalation Aerosol SolutionIndicatio ns:Bronchitis, complicated Inhale 2 Puffs by mouth 4 times a day as needed for Wheezing. 18 g 1 04/23/2024 Suspended Additional Information Furosemide 40 MG Oral Tablet (Lasix)Indication s:Generalized edema,Congestive heart failure, unspecified HF chronicity, unspecified heart failure type (HCC) Take 0.5 Tablets by mouth in the morning. 04/27/2024 Suspended amLODIPine Besylate 10 MG Oral Tablet (Norvasc)Indicati ons:Hypertension goal BP (blood pressure) < 140/90 Take 0.5 Tablets by mouth in the morning and 0.5 Tablets before bedtime. 90 Tablet 5 05/10/2024 Suspended Additional Information Patient not taking.Reported on 05/22/2024 documented as of this encounter (statuses as of 05/23/2024) Active Problems Problem Noted Date Diagnosed Date Renal hematoma, left 05/22/2024 ESRD (end stage renal disease) 05/22/2024 Abdominal pain 05/22/2024 Page kidney 05/22/2024 VENKAT (acute kidney [...] as of this encounter (statuses as of 05/23/2024) Social History Tobacco Use Types Packs/Day Years [...] encounter Miscellaneous Notes * Telephone Encounter - Lakisha Dye LPN - 05/23/2024 9:44 AM EDT Care Gaps Comprehensive Care Outreach Last Office/Telemedicine Visit: 05/04/2024 (in office), Visit date not found (telemedicine) Next Office Visit: 06/08/2024 Hemoglobin AIC Results: Lab Results Component Value Date/Time HEMOGLOBIN A1C - [facility] 5.2 03/27/2024 09:15 AM BP Readings from Last 1 Encounters: 05/23/24 (!) 162/111 Reviewed Health Maintenance below: Health Maintenance Topic Date Due Pneumococcal Vaccine: Pediatrics (0 to 5 Years) and At-Risk Patients (6 to 64 Years) (1 of 2 - PCV)Never done Depression Screening Never done Hepatitis B Vaccine (1 of 3 - 19+ 3-dose series) Never done DTap/Tdap Vaccines (1 - Tdap) Never done Colorectal Cancer Screening Never done Zoster Vaccines (1 of 2) Never done Influenza Vaccine (FLU shot) (1) 05/20/2024 inpatient Care Gap Outreach Action Taken: Outreach not indicated documented in this encounter Plan of Treatment Upcoming Encounters Date Type Department Care Team (Late st Contact Info) Description 06/08/2024 7:40 AM EDT Office Visit Family Practice [facility] [place] [address] [place] [address] Sonya Dacosta MD [address] [place] [address] 06/28/2024 8:30 AM EDT Imaging Cardiac Studies, [facility] [address] [place] [address] 08/09/2024 10:30 AM EST Office Visit Cardiology, [facility] [address] [facility] [place] [address] Palak Meier CRNP [address] [facility] [place] [address] Health Maintenance Due Date Last Done Comments [...] 07/24/2012 TSH 04/20/2025 04/20/2024, 03/27/2024 Diabetes Screening 05/23/2027 05/23/2024, 0 05/22/2024, 05/22/2024, Additional history exists Lipid Panel 03/27/2029 03/27/2024 Nephrology Referral Discontinued 04/06/2024 HPV (Gardasil) Vaccine Aged Out No lo nger eligible based on patient's age to complete this topic MENINGOCOCCAL (MENACTRA/MENVEO) Aged Out No longer eligible based on patient's age to complete this topic documented as of this encounter Medical Devices Implanted Type Area Welding Equipment Repairer Device Identifier Shelf Expiration Date Model / Serial / Lot Coil Emboli Toroxanado 3x2 - [id number] Implanted:Qty: 1 on 05/22/2024 at [facility] [employer] [id number] 11/14/2028 [id number] / / [id number] Coil Fibered 2 10mm [id number] - [id number] Implanted:Qty: 1 on 05/22/2024 at [facility] [employer] : [employer] INTR [id number] 08/08/2026 [id number] / / [id number] Coil Emboli Tornado 3x2 - [id number] Implanted:Qty: 1 on 05/22/2024 at [facility] [employer] [id number] 09/08/2028 [id number] / / [id number] Coil Emboli Tornado 3x2 - [id number] Implanted:Qty: 1 on 05/22/2024 at [facility] [employer] [id number] 08/22/2028 [id number] / / [id number] Cath Diag Cobra 2 [id number] - [id number] Implanted:Qty: 1 on 05/22/2024 at [facility] [employer] [id number] 07/24/2026 8 [id number] / / [id number] documented as of this encounter Advance Directives * Full Code (Latest Code Status on File) Date Activated Date Inactivated Comments 05/22/2024 2:26 PM This order refl ects the patients wishes and were consensually agreed upon. Question Answer Comments Discussion of Advance Direct deng occurred with: Not Discussed due to patient's condition * Full Code Date Activated Date Inactivated Comments 05/22/2024 7:48 AM 05/22/2024 2:26 PM This order ref lects the patients wishes and were consensually agreed upon. Question Answer Comments Discussion of Advance Directives occurred with: Patient Care Teams Network Consultant Relationship Specialty Start Date End Date Sonya Dacosta MD [address] [place] [address] PCP - General Family Medicine 04/27/24 documented as of this encounter
--- OUTSIDE RECORDS SUMMARY | 2024-07-09 07:10 | External Medical Summary ---
Author Name Unknown Address Unknown Organization K01:[place] [place] [address] [place] [address] Laboratory Report Ordering Provider Test Date Status ELMIRA CABRERA 05/23/2024 10:27:00 Final Observation Date Value Abnormality Reference (Units ) Status Osmolality 05/23/2024 10:27:00 322 Above high normal 2 78-305 (mOsm/kg) Final Performing Location [facility] - [address] [place] [address]
--- OUTSIDE RECORDS SUMMARY | 2024-07-09 07:10 | External Medical Summary ---
Author Name Unknown Address Unknown Organization K01:LABORATORY [facility] [place] - [facility] [address] [place] [address] Laboratory Report Ordering Provider Test Date Status ELMIRA CABRERA 05/27/2024 05:56:00 Final Observation Date Value Abnormality Reference (Units ) Status WBC, Total 05/27/2024 05:56:00 11.08 Above high normal 4.00-10.80 (K/uL) Final RBC 05/27/2024 05:56:00 2.74 4.50-5.25 (M/uL) Final Hemoglobin 05/27/2024 05:56:00 8.3 Below low normal 14.0-16.8 (g/dL) Final HCT 05/27/2024 05:56:00 26.6 Below low normal 40.0-48.4 (%) Final MCV 05/27/2024 05:56:00 97.1 82.0-99.5 (fL) Final MCH 05/27/2024 05:56:00 30.3 27.0-34.0 (pg) Final MCHC 05/27/2024 05:56:00 31.2 32.0-36.0 (g/dL) Final RDW 05/27/2024 05:56:00 16.3 11.5-15.5 (%) Final Platelets 05/27/2024 05:56:00 254 140-400 (K/uL) Final MPV 05/27/2024 05:56:00 9.8 6.6-11.1 (fL) Final Nucleated erythrocytes/100 leukocytes [Ratio] in Blood by Automated count 05/27/2024 05:56:00 0 <=0 (/100 WBCs) Final Performing Location LABORATORY [facility] [place] [place] - [address] [place] [address]
--- OUTSIDE RECORDS SUMMARY | 2024-07-09 07:10 | External Medical Summary ---
Author Name Unknown Address Unknown Organization K01:LABORATORY [facility] - [address] [place] [address] Laboratory Report Ordering Provider Test Date Status ELMIRA CABRERA 05/27/2024 05:56:00 Final Observation Date Value Abnormality Reference (Units ) Status Magnesium 05/27/2024 05:56:00 2.6 1.5-2.6 (m g/dL) Final Performing Location [facility] - [address] [place] [address]
--- OUTSIDE RECORDS SUMMARY | 2024-07-09 07:10 | External Medical Summary ---
Author Name Unknown Address Unknown Organization K01:[place] [facility] [place] [facility] [address] [place] [address] Laboratory Report Ordering Provider Test Date Status ELMIRA CABRERA 05/28/2024 06:13:00 Final Observation Date Value Abnormality Reference (Units ) Status BUN 05/28/2024 06:13:00 64 Above high normal 6-20 (mg/dL) Final Creatinine 05/28/2024 06:13:00 8.0 Above high normal 0.6-1.2 (mg/dL) Final Glomerular filtration rate/1.73 sq M.predicted [Volume Rate/Area] in Serum, Plasma or Blood by Creatinine-based formula (CKD-EPI) 05/28/2024 06:13:00 7 Below low normal >=60 (mL/min) Final eGFR is calculated based on the CKD-EPI 2020 equation. Sodium 05/28/2024 06:13:00 131 Below low normal 135 -146 (mmol/L) Final Potassium 05/28/2024 06:13:00 4.4 3.5-5.1 (m mol/L) Final Cl 05/28/2024 06:13:00 95 Below low normal 98- 107 (mmol/L) Final CO2 05/28/2024 06:13:00 22 22-32 (mmo l/L) Final Anion gap 05/28/2024 06:13:00 14 7-15 (mmol /L) Final Glucose 05/28/2024 06:13:00 98 70-120 (mg /dL) Final Calcium 05/28/2024 06:13:00 8.8 8.4-10.2 ( mg/dL) Final Performing Location [facility] [facility] [place] [address] [place] [address]
--- OUTSIDE RECORDS SUMMARY | 2024-07-09 07:10 | External Medical Summary ---
Author Name Unknown Address Unknown Organization K01:LABORATORY [facility] [place] - [address] [facility] [address] Laboratory Report Ordering Provider Test Date Status ELMIRA CABRERA 05/23/2024 08:56:33 Final Observation Date Value Abnormality Reference (Units ) Status Osmolality, Urine 05/23/2024 08:56:33 392 50 -1200 (mOsm/kg) Final Performing Location [facility] - [address] [facility] [address]
--- OUTSIDE RECORDS SUMMARY | 2024-07-09 07:10 | External Medical Summary ---
Author Name Unknown Address Unknown Organization K01:[facility]ORY [facility] [place] [facility] - [address] [place] [address] Laboratory Report Ordering Provider Test Date Status MARC VUONG 05/25/2024 11:41:00 Final Observation Date Value Abnormality Reference (Units ) Status ABO 05/25/2024 11:41:00 B Final RH 05/25/2024 11:41:00 Positive Final RED BLOOD CELL ANTIBODY SCREEN 05/25/2024 11:41:00 Negative Final SPECIMEN EXPIRATION DATE 05/25/2024 11:41:00 05/28/2024 23:59 Final Performing Location LAB[facility]ORY [facility] - [address] [place] [address]
--- OUTSIDE RECORDS SUMMARY | 2024-07-09 07:10 | External Medical Summary ---
Author Name Unknown Address Unknown Organization K01:LABORATORY [facility] [place] - [facility] [address] [place] [address] Laboratory Report Ordering Provider Test Date Status KONSTANTIN ROBERTS 05/24/2024 05:59:00 Final Less than 0.5 ng/mL: Low ris [...] [Mass/volume] in Serum or Plasma by Immunoassay 05/24/2024 05:59:00 0.57 Above high normal <0.10 (ng/mL) Final Performing Location LABORATORY [facility] [place] - [facility] [address] [place] [address]
--- OUTSIDE RECORDS SUMMARY | 2024-07-09 07:10 | External Medical Summary ---
Author Name Unknown Address Unknown Organization K01:LABORATORY [facility] - [address] [place] [address] Laboratory Report Ordering Provider Test Date Status ELMIRA CABRERA 05/26/2024 05:47:00 Final Observation Date Value Abnormality Reference (Units ) Status Phosphate 05/26/2024 05:47:00 6.2 Above high normal 2. 5-4.8 (mg/dL) Final Performing Location [facility] - [address] [place] [address]
--- OUTSIDE RECORDS SUMMARY | 2024-07-09 07:10 | External Medical Summary ---
Author Name Unknown Address Unknown Organization K01:LABORATORY [facility] [place] - [address] [place] [address] Laboratory Report Ordering Provider Test Date Status MITRA MORRIS 05/23/2024 14:09:00 Final Observation Date Value Abnormality Reference (Units ) Status Hep C Ab 05/23/2024 14:09:00 Negative Negative Final Further HCV quantitative fátima ting not performed per protocol. Performing Location LABORATORY [facility] - [address] [place] [address]
--- OUTSIDE RECORDS SUMMARY | 2024-07-09 07:10 | External Medical Summary ---
Author Name Unknown Address Unknown Organization K01:LAB[facility]ATORY [facility] [place] - [address] [place] [address] Laboratory Report Ordering Provider Test Date Status ELMIRA CABRERA 05/25/2024 03:43:00 Final Observation Date Value Abnormality Reference (Units ) Status Magnesium 05/25/2024 03:43:00 2.9 Above high normal 1. 5-2.6 (mg/dL) Final Performing Location [facility] - [address] [place] [address]
--- OUTSIDE RECORDS SUMMARY | 2024-07-09 07:10 | External Medical Summary ---
Author Name Unknown Address Unknown Organization K01:LABORATORY [facility] - [address] [place] [address] Laboratory Report Ordering Provider Test Date Status ELMIRA CABRERA 05/28/2024 06:13:00 Final Observation Date Value Abnormality Reference (Units ) Status Magnesium 05/28/2024 06:13:00 2.5 1.5-2.6 (m g/dL) Final Performing Location [facility] - [address] [place] [address]
--- OUTSIDE RECORDS SUMMARY | 2024-07-09 07:10 | External Medical Summary ---
Author Name Unknown Address Unknown Organization K01:LABORATORY [facility] [place] - [address] [place] [address] Laboratory Report Ordering Provider Test Date Status KONSTANTIN ROBERTS 05/25/2024 03:43:00 Final Observation Date Value Abnormality Reference (Units ) Status Bacteria identified in Specimen by Culture 05/25/2024 03:43:00 No growth Final Test: Culture, Blood
Sp ecimen Source: Blood, Venous
Specimen Type: Blood
Specimen Date: 05/25/2024 0343
Result Date: 05/30/2024 0501
Result Status: Final result
Resulting Lab: LABORATORY [facility] [place]
[address]
[place] [address]

CULTURE

No growth

null Performing Location LABORATORY [facility] [place] - [address] [place] [address]
--- OUTSIDE RECORDS SUMMARY | 2024-07-09 07:10 | External Medical Summary ---
Author Name Unknown Address Unknown Organization K01:[facility] [place] - [facility] [address] Laboratory Report Ordering Provider Test Date Status ELMIRA CABRERA 05/23/2024 17:22:00 Final Observation Date Value Abnormality Reference (Units ) Status WBC, Total 05/23/2024 17:22:00 13.08 Above high normal 4.00-10.80 (K/uL) Final RBC 05/23/2024 17:22:00 2.56 4.50-5.25 (M/uL) Final Hemoglobin 05/23/2024 17:22:00 8.0 Below low normal 14.0-16.8 (g/dL) Final HCT 05/23/2024 17:22:00 24.6 Below low normal 40.0-48.4 (%) Final MCV 05/23/2024 17:22:00 96.1 82.0-99.5 (fL) Final MCH 05/23/2024 17:22:00 31.3 27.0-34.0 (pg) Final MCHC 05/23/2024 17:22:00 32.5 32.0-36.0 (g/dL) Final RDW 05/23/2024 17:22:00 15.9 11.5-15.5 (%) Final Platelets 05/23/2024 17:22:00 221 140-400 (K/uL) Final MPV 05/23/2024 17:22:00 10.0 6.6-11.1 (fL) Final Nucleated erythrocytes/100 leukocytes [Ratio] in Blood by Automated count 05/23/2024 17:22:00 0 <=0 (/100 WBCs) Final Performing Location LAB[facility]ORY [facility] [place] - [address] [facility] [address]
--- OUTSIDE RECORDS SUMMARY | 2024-07-09 07:10 | External Medical Summary ---
Author Name Unknown Address Unknown Organization K01:[facility] [place] [address] [place] Laboratory Report Ordering Provider Test Date Status KONSTANTIN ROBERTS 05/25/2024 06:53:28 Final Observation Date Value Abnormality Reference (Units ) Status Bacteria identified in Specimen by Culture 05/25/2024 06:53:28 < 100 colonies/ml (no growth) Final Test: Culture, Urine, Quanti tative
Specimen Source: Urine, Catheter
Specimen Type: Urine
Specimen Date: 05/25/202453
Result Date: 05/26/2024 0847
Result Status: Final result
Resulting Lab: [facility] [place]
[address]
[place]

CULTURE

< 100 colonies/ml (no growth)

null Performing Location [facility]ORY [facility] [place] [address] [facility] [address]
--- OUTSIDE RECORDS SUMMARY | 2024-07-09 07:10 | External Medical Summary ---
Author Name Unknown Address Unknown Organization K01[facility] [address] [facility] [address] Laboratory Report Ordering Provider Test Date Status ELMIRA CABRERA 05/24/2024 05:59:00 Final Observation Date Value Abnormality Reference (Units ) Status WBC, Total 05/24/2024 05:59:00 12.58 Above high normal 4.00-10.80 (K/uL) Final RBC 05/24/2024 05:59:00 2.33 4.50-5.25 (M/uL) Final Hemoglobin 05/24/2024 05:59:00 7.2 Below low normal 14.0-16.8 (g/dL) Final HCT 05/24/2024 05:59:00 22.1 Below low normal 40.0-48.4 (%) Final MCV 05/24/2024 05:59:00 94.8 82.0-99.5 (fL) Final MCH 05/24/2024 05:59:00 30.9 27.0-34.0 (pg) Final MCHC 05/24/2024 05:59:00 32.6 32.0-36.0 (g/dL) Final RDW 05/24/2024 05:59:00 15.9 11.5-15.5 (%) Final Platelets 05/24/2024 05:59:00 183 140-400 (K/uL) Final MPV 05/24/2024 05:59:00 10.1 6.6-11.1 (fL) Final Nucleated erythrocytes/100 leukocytes [Ratio] in Blood by Automated count 05/24/2024 05:59:00 0 <=0 (/100 WBCs) Final Performing Location [facility]ORY [facility] [place] [address] [facility] [address]
--- OUTSIDE RECORDS SUMMARY | 2024-07-09 07:10 | External Medical Summary ---
Author Name Unknown Address Unknown Organization K01:[place] [facility] [place] [address] [place] [address] Laboratory Report Ordering Provider Test Date Status MARC VUONG 05/23/2024 06:44:00 Final Observation Date Value Abnormality Reference (Units ) Status Magnesium 05/23/2024 06:44:00 3.0 Above high normal 1. 5-2.6 (mg/dL) Final Performing Location [facility] - [address] [place] [address]
--- OUTSIDE RECORDS SUMMARY | 2024-07-09 07:10 | External Medical Summary ---
Author Name Unknown Address Unknown Organization K01:LABORATORY [place] [address] [address] [facility] [address] Laboratory Report Ordering Provider Test Date Status ESTRELLA GEORGE 05/25/2024 17:10:00 Final Observation Date Value Abnormality Reference (Units ) Status BUN 05/25/2024 17:10:00 61 Above high normal 6-20 (mg/dL) Final Creatinine 05/25/2024 17:10:00 7.4 Above high normal 0.6-1.2 (mg/dL) Final Glomerular filtration rate/1.73 sq M.predicted [Volume Rate/Area] in Serum, Plasma or Blood by Creatinine-based formula (CKD-EPI) 05/25/2024 17:10:00 8 Below low normal >=60 (mL/min) Final eGFR is calculated based on the CKD-EPI 2020 equation. Sodium 05/25/2024 17:10:00 132 Below low normal 135 -146 (mmol/L) Final Potassium 05/25/2024 17:10:00 4.1 3.5-5.1 (m mol/L) Final Cl 05/25/2024 17:10:00 96 Below low normal 98- 107 (mmol/L) Final CO2 05/25/2024 17:10:00 22 22-32 (mmo l/L) Final Anion gap 05/25/2024 17:10:00 14 7-15 (mmol /L) Final Glucose 05/25/2024 17:10:00 141 Above high normal 70 -120 (mg/dL) Final Calcium 05/25/2024 17:10:00 8.7 8.4-10.2 ( mg/dL) Final Performing Location [facility] [place] [address] [place] [address]
--- OUTSIDE RECORDS SUMMARY | 2024-07-09 07:10 | External Medical Summary ---
Author Name Unknown Address Unknown Organization K01:LABORATORY [facility] [place] - [facility] [address] [facility] [address] Laboratory Report Ordering Provider Test Date Status ESTRELLA GEORGE 05/23/2024 17:22:00 Final Observation Date Value Abnormality Reference (Units ) Status BUN 05/23/2024 17:22:00 100 Above high normal 6-20 (mg/dL) Final Creatinine 05/23/2024 17:22:00 10.0 Above high normal 0.6-1.2 (mg/dL) Final Glomerular filtration rate/1.73 sq M.predicted [Volume Rate/Area] in Serum, Plasma or Blood by Creatinine-based formula (CKD-EPI) 05/23/2024 17:22:00 6 Below low normal >=60 (mL/min) Final eGFR is calculated based on the CKD-EPI 2020 equation. Sodium 05/23/2024 17:22:00 130 Below low normal 135 -146 (mmol/L) Final Potassium 05/23/2024 17:22:00 4.4 3.5-5.1 (m mol/L) Final Cl 05/23/2024 17:22:00 92 Below low normal 98- 107 (mmol/L) Final CO2 05/23/2024 17:22:00 20 Below low normal 22- 32 (mmol/L) Final Anion gap 05/23/2024 17:22:00 18 Above high normal 7- 15 (mmol/L) Final Glucose 05/23/2024 17:22:00 97 70-120 (mg /dL) Final Calcium 05/23/2024 17:22:00 8.7 8.4-10.2 ( mg/dL) Final Performing Location LABORATORY [facility] [place] - [address] [facility] [address]
--- OUTSIDE RECORDS SUMMARY | 2024-07-09 07:10 | External Medical Summary ---
Author Name Unknown Address Unknown Organization K01:LABORATORY [facility] [place] - [address] [place] [address] Laboratory Report Ordering Provider Test Date Status MITRA MORRIS 05/23/2024 14:09:00 Final Observation Date Value Abnormality Reference (Units ) Status Hep B surface Ag 05/23/2024 14:09:00 Negative Neg ative Final Performing Location [facility] - [address] [place] [address]
--- OUTSIDE RECORDS SUMMARY | 2024-07-09 07:10 | External Medical Summary ---
Author Name Unknown Address Unknown Organization K01:LABORATORY [facility] [place] - [facility] [place] [address] Laboratory Report Ordering Provider Test Date Status ELMIRA CABRERA 05/24/2024 05:59:00 Final Observation Date Value Abnormality Reference (Units ) Status BUN 05/24/2024 05:59:00 106 Above high normal 6-20 (mg/dL) Final Creatinine 05/24/2024 05:59:00 11.0 Above high normal 0.6-1.2 (mg/dL) Final Glomerular filtration rate/1.73 sq M.predicted [Volume Rate/Area] in Serum, Plasma or Blood by Creatinine-based formula (CKD-EPI) 05/24/2024 05:59:00 5 Below low normal >=60 (mL/min) Final eGFR is calculated based on the CKD-EPI 2020 equation. Sodium 05/24/2024 05:59:00 130 Below low normal 135 -146 (mmol/L) Final Potassium 05/24/2024 05:59:00 4.4 3.5-5.1 (m mol/L) Final Cl 05/24/2024 05:59:00 93 Below low normal 98- 107 (mmol/L) Final CO2 05/24/2024 05:59:00 19 Below low normal 22- 32 (mmol/L) Final Anion gap 05/24/2024 05:59:00 18 Above high normal 7- 15 (mmol/L) Final Glucose 05/24/2024 05:59:00 102 70-120 (mg /dL) Final Calcium 05/24/2024 05:59:00 8.7 8.4-10.2 ( mg/dL) Final Performing Location LABORATORY [facility] [place] - [address] [facility] [address]
--- OUTSIDE RECORDS SUMMARY | 2024-07-09 07:10 | External Medical Summary ---
Author Name Unknown Address Unknown Organization K01:[facility]ATORY [facility] [place] [address] [facility] [address] Laboratory Report Ordering Provider Test Date Status ELMIRA CABRERA 05/24/2024 05:59:00 Final Observation Date Value Abnormality Reference (Units ) Status Phosphate 05/24/2024 05:59:00 9.2 Above high normal 2. 5-4.8 (mg/dL) Final Performing Location [facility] - [address] [place] [address]
--- OUTSIDE RECORDS SUMMARY | 2024-07-09 07:10 | External Medical Summary ---
Author Name Unknown Address Unknown Organization K01:[place] [facility] [place] [facility] [address] [place] [address] Laboratory Report Ordering Provider Test Date Status ELMIRA CABRERA 05/25/2024 03:43:00 Final Observation Date Value Abnormality Reference (Units ) Status WBC, Total 05/25/2024 03:43:00 11.88 Above high normal 4.00-10.80 (K/uL) Final RBC 05/25/2024 03:43:00 2.41 4.50-5.25 (M/uL) Final Hemoglobin 05/25/2024 03:43:00 7.3 Below low normal 14.0-16.8 (g/dL) Final HCT 05/25/2024 03:43:00 23.0 Below low normal 40.0-48.4 (%) Final MCV 05/25/2024 03:43:00 95.4 82.0-99.5 (fL) Final MCH 05/25/2024 03:43:00 30.3 27.0-34.0 (pg) Final MCHC 05/25/2024 03:43:00 31.7 32.0-36.0 (g/dL) Final RDW 05/25/2024 03:43:00 16.6 11.5-15.5 (%) Final Platelets 05/25/2024 03:43:00 190 140-400 (K/uL) Final MPV 05/25/2024 03:43:00 10.1 6.6-11.1 (fL) Final Nucleated erythrocytes/100 leukocytes [Ratio] in Blood by Automated count 05/25/2024 03:43:00 0 <=0 (/100 WBCs) Final Performing Location [place] [facility] [place] [address] [place] [address]
--- OUTSIDE RECORDS SUMMARY | 2024-07-09 07:10 | External Medical Summary ---
Author Name Unknown Address Unknown Organization K01:LABORATORY [facility] - [address] [place] [address] Laboratory Report Ordering Provider Test Date Status ELMIRA CABRERA 05/27/2024 05:56:00 Final Observation Date Value Abnormality Reference (Units ) Status Phosphate 05/27/2024 05:56:00 5.3 Above high normal 2. 5-4.8 (mg/dL) Final Performing Location [facility] - [address] [place] [address]
--- OUTSIDE RECORDS SUMMARY | 2024-07-09 07:10 | External Medical Summary ---
Author Name Unknown Address Unknown Organization K01:LAB[place]ORY [facility] [place] [address] [place] [address] Laboratory Report Ordering Provider Test Date Status ZAHRAA CABRERAALEXEYJAMES 05/24/2024 05:59:00 Final Observation Date Value Abnormality Reference (Units ) Status Iron 05/24/2024 05:59:00 23 Below low normal 45-176 (ug/dL) Final Iron-binding capacity 05/24/2024 05:59:00 158 Below low normal 250-425 (ug/dL) Final Transferrin Sat % 05/24/2024 05:59:00 15 15-55 (%) Final Performing Location LABORATORY [facility] - [address] [place] [address]
--- OUTSIDE RECORDS SUMMARY | 2024-07-09 07:10 | External Medical Summary ---
Author Name Unknown Address Unknown Organization K01:LABORATORY [facility] - [facility] [address] [place] [address] Laboratory Report Ordering Provider Test Date Status ELMIRA CABRERA 05/24/2024 13:24:00 Final Observation Date Value Abnormality Reference (Units ) Status WBC, Total 05/24/2024 13:24:00 11.51 Above high normal 4.00-10.80 (K/uL) Final RBC 05/24/2024 13:24:00 2.21 4.50-5.25 (M/uL) Final Hemoglobin 05/24/2024 13:24:00 6.9 Below low normal 14.0-16.8 (g/dL) Final HCT 05/24/2024 13:24:00 21.3 Below low normal 40.0-48.4 (%) Final MCV 05/24/2024 13:24:00 96.4 82.0-99.5 (fL) Final MCH 05/24/2024 13:24:00 31.2 27.0-34.0 (pg) Final MCHC 05/24/2024 13:24:00 32.4 32.0-36.0 (g/dL) Final RDW 05/24/2024 13:24:00 16.1 11.5-15.5 (%) Final Platelets 05/24/2024 13:24:00 165 140-400 (K/uL) Final MPV 05/24/2024 13:24:00 9.9 6.6-11.1 (fL) Final Nucleated erythrocytes/100 leukocytes [Ratio] in Blood by Automated count 05/24/2024 13:24:00 0 <=0 (/100 WBCs) Final Performing Location LABORATORY [facility] - [address] [place] [address]
--- OUTSIDE RECORDS SUMMARY | 2024-07-09 07:10 | External Medical Summary ---
Author Name Unknown Address Unknown Organization K01:[place] [facility] [place] [facility] [address] [place] [address] Laboratory Report Ordering Provider Test Date Status ELMIRA CABRERA 05/27/2024 05:56:00 Final Observation Date Value Abnormality Reference (Units ) Status BUN 05/27/2024 05:56:00 53 Above high normal 6-20 (mg/dL) Final Creatinine 05/27/2024 05:56:00 7.0 Above high normal 0.6-1.2 (mg/dL) Final Glomerular filtration rate/1.73 sq M.predicted [Volume Rate/Area] in Serum, Plasma or Blood by Creatinine-based formula (CKD-EPI) 05/27/2024 05:56:00 9 Below low normal >=60 (mL/min) Final eGFR is calculated based on the CKD-EPI 2020 equation. Sodium 05/27/2024 05:56:00 132 Below low normal 135 -146 (mmol/L) Final Potassium 05/27/2024 05:56:00 4.3 3.5-5.1 (m mol/L) Final Cl 05/27/2024 05:56:00 95 Below low normal 98- 107 (mmol/L) Final CO2 05/27/2024 05:56:00 24 22-32 (mmo l/L) Final Anion gap 05/27/2024 05:56:00 13 7-15 (mmol /L) Final Glucose 05/27/2024 05:56:00 103 70-120 (mg /dL) Final Calcium 05/27/2024 05:56:00 9.0 8.4-10.2 ( mg/dL) Final Performing Location [facility] [facility] [place] [address] [place] [address]
--- OUTSIDE RECORDS SUMMARY | 2024-07-09 07:10 | External Medical Summary ---
Author Name Unknown Address Unknown Organization K01:LABORATORY [facility] [place] - [facility] [address] [place] [address] Laboratory Report Ordering Provider Test Date Status ELMIRA CABRERA 05/26/2024 05:47:00 Final Observation Date Value Abnormality Reference (Units ) Status WBC, Total 05/26/2024 05:47:00 13.11 Above high normal 4.00-10.80 (K/uL) Final RBC 05/26/2024 05:47:00 2.43 4.50-5.25 (M/uL) Final Hemoglobin 05/26/2024 05:47:00 7.4 Below low normal 14.0-16.8 (g/dL) Final HCT 05/26/2024 05:47:00 23.2 Below low normal 40.0-48.4 (%) Final MCV 05/26/2024 05:47:00 95.5 82.0-99.5 (fL) Final MCH 05/26/2024 05:47:00 30.5 27.0-34.0 (pg) Final MCHC 05/26/2024 05:47:00 31.9 32.0-36.0 (g/dL) Final RDW 05/26/2024 05:47:00 16.5 11.5-15.5 (%) Final Platelets 05/26/2024 05:47:00 214 140-400 (K/uL) Final MPV 05/26/2024 05:47:00 10.3 6.6-11.1 (fL) Final Nucleated erythrocytes/100 leukocytes [Ratio] in Blood by Automated count 05/26/2024 05:47:00 0 <=0 (/100 WBCs) Final Performing Location LABORATORY [facility] [place] - [address] [place] [address]
--- OUTSIDE RECORDS SUMMARY | 2024-07-09 07:10 | External Medical Summary ---
Author Name Unknown Address Unknown Organization [id number]:[facility]ORY [facility] [place] - [facility] [place] [address] Laboratory Report Ordering Provider Test Date Status ELMIRA CABRERA 05/23/2024 06:44:00 Final Observation Date Value Abnormality Reference (Units ) Status BUN 05/23/2024 06:44:00 102 Above high normal 6-20 (mg/dL) Final Creatinine 05/23/2024 06:44:00 10.0 Above high normal 0.6-1.2 (mg/dL) Final Glomerular filtration rate/1.73 sq M.predicted [Volume Rate/Area] in Serum, Plasma or Blood by Creatinine-based formula (CKD-EPI) 05/23/2024 06:44:00 6 Below low normal >=60 (mL/min) Final eGFR is calculated based on the CKD-EPI 2020 equation. Sodium 05/23/2024 06:44:00 129 Below low normal 135 -146 (mmol/L) Final Potassium 05/23/2024 06:44:00 4.2 3.5-5.1 (m mol/L) Final Cl 05/23/2024 06:44:00 93 Below low normal 98- 107 (mmol/L) Final CO2 05/23/2024 06:44:00 20 Below low normal 22- 32 (mmol/L) Final Anion gap 05/23/2024 06:44:00 16 Above high normal 7- 15 (mmol/L) Final Glucose 05/23/2024 06:44:00 115 70-120 (mg /dL) Final Calcium 05/23/2024 06:44:00 8.9 8.4-10.2 ( mg/dL) Final Performing Location [facility] [place] - [address] [facility] [address]
--- OUTSIDE RECORDS SUMMARY | 2024-07-09 07:10 | External Medical Summary ---
Author Name Unknown Address Unknown Organization [id number]:[facility]ATORY [place] [address] [place] [address] Laboratory Report Ordering Provider Test Date Status MITRA MORRIS 05/23/2024 14:09:00 Final Observation Date Value Abnormality Reference (Units) Status Hepatitis B virus surface Ab [Units/volume] in Serum or Plasma by Immunoassay 05/23/2024 14:09:00 <3.5 (mIU/mL) Final Hepatitis B virus surface Ab [Presence] in Serum by Immunoassay 05/23/2024 14:09:00 Negative Final HEPATITIS B SURFACE ANTIBODY, INTERPRETATION 05/23/2024 14:09:00 NOT immune to Hepatitis B Virus Final POSITIVE: >=11.5 mIU/mL
INDETERMINATE: 8.5-<11.5 mIU/mL
NEGATIVE: <8.5 mIU/mL Performing Location [facility] [place] [address] [place] [address]
--- OUTSIDE RECORDS SUMMARY | 2024-07-09 07:10 | External Medical Summary ---
Author Name Unknown Address Unknown Organization [id number]:[facility] [place] [facility] [address] [facility] [address] [facility] [address] Laboratory Report Ordering Provider Test Date Status ELMIRA CABRERA 05/26/2024 05:47:00 Final Observation Date Value Abnormality Reference (Units ) Status BUN 05/26/2024 05:47:00 68 Above high normal 6-20 (mg/dL) Final Creatinine 05/26/2024 05:47:00 8.3 Above high normal 0.6-1.2 (mg/dL) Final Glomerular filtration rate/1.73 sq M.predicted [Volume Rate/Area] in Serum, Plasma or Blood by Creatinine-based formula (CKD-EPI) 05/26/2024 05:47:00 7 Below low normal >=60 (mL/min) Final eGFR is calculated based on the CKD-EPI 2020 equation. Sodium 05/26/2024 05:47:00 130 Below low normal 135 -146 (mmol/L) Final Potassium 05/26/2024 05:47:00 4.5 3.5-5.1 (m mol/L) Final Cl 05/26/2024 05:47:00 95 Below low normal 98- 107 (mmol/L) Final CO2 05/26/2024 05:47:00 21 Below low normal 22- 32 (mmol/L) Final Anion gap 05/26/2024 05:47:00 14 7-15 (mmol /L) Final Glucose 05/26/2024 05:47:00 101 70-120 (mg /dL) Final Calcium 05/26/2024 05:47:00 8.8 8.4-10.2 ( mg/dL) Final Performing Location [facility] [place] [address] [place] [address]
--- NOTE | 2024-07-09 07:11 | Emergency Department Note ---
Impression & Plan Pulmonary edema, Acute renal failure, Acute respiratory failure ED Provider Note NAME: EMIGDIO WINSTON AGE: 53 SEX: M : 1970 ARRIVES VIA: Ambulance INFORMANT: Patient, EMS ED PROVIDER(S): Trevor Turk DO CHIEF COMPLAINT: Shortness of breath HPI: The patient is a 53-year-old male who presented to the emergency department for an evaluation of difficulty breathing. The patient has been on dialysis over the course of the last 2 months. The patient started having shortness of breath over the night. He has noticed swelling in his legs. He cannot lie flat. When he went to dialysis he was found to be an extremis. 911 was called. The patient was placed on CPAP prior to arrival. The patient arrived to the emergency department feeling much better but still having significant shortness of breath. He denies having any hemoptysis. He denies having any chest pain. He denies having any fever. He does have a history of pneumonia over the summer. The patient did not receive dialysis. He states he still does make some urine. He was treated with nitroglycerin spray prior to arrival. ROS: See above HPI for pertinent positives & negatives. A total of 10 systems reviewed and were otherwise negative. PAST MEDICAL HISTORY: See Below PAST SURGICAL HISTORY: See Below FAMILY HISTORY: See Below SOCIAL HISTORY: See Below HOME MEDICATIONS: See Below ALLERGIES: See Below VITALS: See Below PHYSICAL EXAMINATION: GENERAL: The is awake and alert. The patient is anxious and appears to be having significant shortness of breath. EYES: The conjunctivae are clear. The pupils are round and reactive. EARS, NOSE, MOUTH AND THROAT: The nose is without any evidence of any deformity. NECK: The neck is nontender and supple. RESPIRATORY: Breath sounds are noted throughout with rales in all lung caballero. There was tachypnea as well as conversational dyspnea. CARDIOVASCULAR: Regular rate and rhythm noted there no murmurs rubs or gallops normal S1 normal S2. GASTROINTESTINAL: The abdomen is soft. Abdomen is nontender. MUSCULOSKELETAL/EXTREMITIES: There is no evidence of gross deformity full range of motion is noted in the hips and shoulders. SKIN: Is warm and dry. Pedal edema was noted bilaterally. NEUROLOGIC: Patient is awake alert and oriented x3 MEDICAL DECISION MAKING: The patient is a 53-year-old male who is a history of renal failure who is on chronic dialysis who presented to the emergency department from dialysis for shortness of breath. The patient arrived to dialysis in extremis. He was placed on CPAP immediately by the prehospital personnel. The patient was placed on BiPAP here. I discussed the patient's laboratory and radiographic studies with him. He does appear to be in pulmonary edema. Physical exam would be consistent with this. He had no fever or cough. The patient appears to be in need of dialysis emergently. I discussed his condition with nephrology. I also discussed his condition with the ICU as well as the [facility] group. They have agreed to evaluate the patient for further inpatient management. Triage Nursing notes reviewed. Prior medical records reviewed Vital Signs: reviewed and remarkable for type and hypertension. Differential diagnosis: Reactive airway disease, pneumonia, pneumothorax, COPD, CHF, infections, cardiac ischemia, pulmonary embolism, musculoskeletal, gastrointestinal, as well as other pathologies. ER treatment provided: See below Diagnostics interpreted by me: ECG: EKG was obtained in the emergency department. My interpretation is normal sinus rhythm at 88 bpm. There was no ectopy. There was no acute ST segment abnormalities noted. Nonspecific T wave abnormalities were noted in the high lateral leads. This was compared to a tracing from March 29, 2024. No changes were noted. Cardiac Monitoring: An order was placed for continuous cardiac monitoring. The monitor shows a rate of 80 bpm with sinus rhythm. Laboratory studies: As stated above and show below. Imaging studies: See below. Radiographic imaging was reviewed by myself Consultation(s): I discussed this case with Dr. Rosado who is on-call for nephrology. I discussed this case with Alvaro Aguilera who is on for the ICU. I discussed this case with Brook who is on-call for the [facility] hospitalist group. ED COURSE: Procedures: none Critical Care: I have personally spent greater than 45 minutes of critical care time in the direct management of this patient. This includes bedside care, interpretation of diagnostic studies, and testing, discussion with consultants, patient, and family members, and other required patient management activities. This 45 minutes is in excess of all separately billable procedures. Past Med/Surg History Problem List (Updated 07/09/24 @ 07:48 by Trevor Turk DO) Acute respiratory failure (Acute) Acute renal failure (Acute) Pulmonary edema (Acute) Multifocal pneumonia Hypertensive urgency CHF (congestive heart failure) (Acute) Elevated troponin (Acute) VENKAT (acute kidney injury) (Acute) Pneumonia (Acute) Chronic rhinitis Eustachian tube dysfunction BPPV (benign paroxysmal positional vertigo) Pressure sensation in both ears Sensorineural hearing loss (SNHL) of both ears asymmetric wrs Finger laceration (Acute) Lumbar herniated disc Medical History Hypothyroid Asthma Seasonal allergies H/O gastroesophageal reflux (GERD) Surgical History History of repair of hiatal hernia Family History Grandfather (Maternal) Hearing loss Father Hypertension Grandmother (Paternal) Cancer unknown type Family/Other Asthma patient not sure but thinks he has a family history of asthma Other No family history of adverse response to anesthesia No family history of bleeding disorder Social History Smoking Status: Never smoker Second Hand Exposure: No; Do You Dip or Chew Tobacco: No; Hx Alcohol Use: No Hx Substance Use: No Preferred Language: [place] Islander Communication Ability: Effective Assistant Professor Of Nursing Required: No Beliefs That Will Affect Care: None marital status: Single Current Living Situation: Spouse Current Living Situation Comment: lives at home with current occupational status: employed 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 Feels Safe at Home: Yes Assistive Devices: None Allergies Allergies Allergy/AdvReac Type Severity Reaction Status Date / Time naproxen Allergy Intermediate SWELLING Verified 03/29/24 18:35 EYES AND LIPS Penicillins Allergy Intermediate HIVES, Verified 03/29/24 18:35 SWELLING amoxicillin Allergy Unknown Verified 03/29/24 18:35 Home Meds Home Medications Medication Instructions Recorded Confirmed levothyroxine 200 mcg tablet 200 mcg PO DAILY 02/10/21 03/29/24 guaifenesin 600 mg tablet, 600 mg PO Q12H PRN Congestion 03/29/24 03/29/24 extended release 12 hr (Mucinex) multivitamin with minerals 1 tab PO DAILY 03/29/24 03/29/24 Previous Rx's Medication Instructions Recorded fluticasone propionate 50 2 spray intranasal DAILY #15.8 mL 08/27/21 mcg/actuation nasal spray,suspension amlodipine 10 mg tablet 5 mg (1/2 x 10 mg) PO BID #60 tabs 04/01/24 carvedilol 12.5 mg tablet 12.5 mg PO BIDM #60 tabs 04/01/24 levofloxacin 750 mg tablet 750 mg PO Q OTHER DAY #4 tabs 04/01/24 Results & Data (ED) Vital Signs Vital Signs - 24 hr 07/09/24 07:05 07/09/24 07:10 07/09/24 07:10 Temperature 36.6 C Temperature Source Oral Pulse Rate 86 86 Pulse Rate from SpO2 Sensor Pulse Rhythm Regular Respiratory Rate 32 H 26 H Respiratory Effort / Characteristics Spontaneous Labored Short of Breath Spontaneous Spontaneous Labored Respiratory Depth Shallow Shallow Respiratory Pattern Tachypnea Tachypnea Tachypnea Blood Pressure 193/142 H Blood Pressure Mean 159 Blood Pressure Position Sitting Pulse Oximetry 100 100 Oxygen Delivery Method CPAP CPAP Oxygen Flow Rate 12 12 Fraction of Inspired Oxygen 50 Sepsis Recent Fever Within 48 Hours No Sepsis New/Unexplained Change in Mental Status No Sepsis Action Taken by Nursing No Action Required 07/09/24 07:10 07/09/24 07:14 07/09/24 07:27 Temperature Temperature Source Pulse Rate 86 Pulse Rate from SpO2 Sensor 86 Pulse Rhythm Respiratory Rate 33 H Respiratory Effort / Characteristics Respiratory Depth Respiratory Pattern Blood Pressure Blood Pressure Mean Blood Pressure Position Pulse Oximetry 94 Oxygen Delivery Method CPAP CPAP Oxygen Flow Rate Fraction of Inspired Oxygen 30 Sepsis Recent Fever Within 48 Hours Sepsis New/Unexplained Change in Mental Status Sepsis Action Taken by Nursing 07/09/24 07:35 07/09/24 07:45 07/09/24 07:45 Temperature Temperature Source Pulse Rate 81 Pulse Rate from SpO2 Sensor Pulse Rhythm Respiratory Rate 13 Respiratory Effort / Characteristics Respiratory Depth Respiratory Pattern Blood Pressure 183/134 H 185/132 H 185/132 H Blood Pressure Mean 143 159 159 Blood Pressure Position Pulse Oximetry 95 Oxygen Delivery Method CPAP Oxygen Flow Rate Fraction of Inspired Oxygen Sepsis Recent Fever Within 48 Hours Sepsis New/Unexplained Change in Mental Status Sepsis Action Taken by Fpc Medications Current Medication List: was personally reviewed by me Laboratory Data Attestation: I reviewed the patient's lab results. 07/09/24 07:05 07/09/24 07:05 Lab Results 07/09/24 07/09/24 Range/Units 07:05 07:11 WBC 10.48 (4.8-10.8) K/ul RBC 3.24 L (4.70-6.10) M/uL Hgb 9.8 L (14.0-18.0) g/dl POC Hgb 10.5 L (14.0-18.0) g/dl Hct 30.1 L (42.0-52.0) % POC Hct 31 L (42-52) % MCV 92.9 (80.0-100.0) fL MCH 30.2 (25.0-34.0) pg MCHC 32.6 (32.0-36.0) g/dL RDW Std Deviation 57.0 H (36.4-46.3) fL RDW Coeff of Meena 16.7 H (11.5-14.5) % Plt Count 222 (130-400) K/uL MPV 10.4 (9.4-12.4) fL Immature Gran % (Auto) 0.8 % Neut % (Auto) 88.2 % Lymph % (Auto) 3.9 % [place] % (Auto) 5.0 % Eos % (Auto) 1.7 % Baso % (Auto) 0.4 % Neut # (Auto) 9.25 H (1.40-6.50) K/uL Lymph # (Auto) 0.41 L (1.20-3.40) K/uL [place] # (Auto) 0.52 (0.11-0.59) K/uL Eos # (Auto) 0.18 (0.00-0.50) K/uL Baso # (Auto) 0.04 (0.00-0.20) K/uL Immature Gran # (Auto) 0.08 (0.01-0.20) K/uL VBG pH 7.34 L (7.36-7.41) VBG pCO2 51 H (38-50) mmHg VBG pO2 30 mmHg VBG HCO3 28 mmol/L VBG O2 Saturation < 60.0 % VBG Base Excess 1.2 mEq/L POC Sodium 130 L (135-144) mmol/L Sodium 132 L (136-145) mmol/L POC Potassium 5.1 H (3.3-5.0) mmol/L Potassium 4.8 (3.5-5.1) mmol/L POC Chloride 93 L (101-112) mmol/L Chloride 93 L (98-107) mmol/L Carbon Dioxide 28 (21-32) mmol/L POC Total CO2 28 (24-31) mmol/L Anion Gap 11 (3-11) POC Anion Gap 15.0 L (16-25) mmol/L POC BUN 78 H (7-18) mg/dl BUN 62 H (6-23) mg/dl Creatinine 8.49 H* (0.6-1.4) mg/dl POC Creatinine 9.3 H* (0.6-1.3) mg/dl Est Cr Clr Drug Dosing 12.9 ml/min eGFR 6.91 BUN/Creatinine Ratio 7.3 L (10-20) Glucose 129 H (70-99(Fasting)) mg/dl POC Glucose (other) 128 H (70-99) mg/dl Lactate 1.4 (0.4-2.0) mmol/L Calcium 9.1 (8.6-10.3) mg/dl POC Ioniz Calcium Annemarie 1.08 L (1.12-1.32) mmol/l Magnesium 2.5 H (1.7-2.4) mg/dl Total Bilirubin 1.2 H (0.2-1.0) mg/dl Direct Bilirubin TNP AST 88 H (13-39) U/L ALT 49 (7-52) U/L Alkaline Phosphatase 52 (34-104) U/L Total Protein 7.6 (6.0-8.3) gm/dl Albumin 4.5 (3.4-5.0) gm/dl Administered Medications Discontinued Medications Furosemide (Furosemide 40 Mg/4 Ml Vial) 80 mg IV ONE ONE Stop: 07/09/24 07:07 Last Admin: 07/09/24 07:40 Dose: 80 mg Documented By: ROSAS Imaging Data Attestation: I personally reviewed and interpreted this imaging study as follows: My Impression: 1 view chest x-ray was obtained in the emergency department. My interpretation is pulmonary edema, final report below. Radiologist's Impression: Chest X-Ray 07/09/24 07:03 XR chest 1V portable HISTORY: 53 years-old Male Sepsis acute sepsis COMPARISON: Chest radiograph 03/30/2024 TECHNIQUE: AP view of the chest FINDINGS: Cardiac silhouette is enlarged. Right IJ dual-lumen hemodialysis catheter distal tip projects over the superior cavoatrial junction. No pneumothorax. Extensive mixed interstitial and alveolar opacities of the lungs. No large pleural effusion. Bones appear grossly intact. IMPRESSION: Cardiomegaly with extensive bilateral mixed interstitial and alveolar opacities suggestive of multifocal pneumonia. Pulmonary edema considered less likely. ACT 112: Negative or not required by law. The above report was generated using voice recognition software. It may contain grammatical, syntax or spelling errors. Electronically signed by: Adam Aguilera M.D. 07/09/2024 7:39 AM Discharge Plan Visit Data Chief Complaint: Respiratory Distress Stated Complaint: RESP. DISTRESS ED Provider: Trevor Turk Discharge Problem: Pulmonary edema, Acute renal failure, Acute respiratory failure Patient Disposition: Being Evaluated by Hospitalist Forms Stand Alone Forms: My [facility] [employer] Prescriptions Prescriptions: No Action fluticasone propionate 50 mcg/actuation spray,suspension 2 spray intranasal DAILY Qty: 15.8 6RF Rx Instructions: administer into each nostril levothyroxine 200 mcg tablet 200 mcg PO DAILY multivitamin with minerals Tablet 1 tab PO DAILY guaifenesin [Mucinex] 600 mg Tablet Extended Release 12hr 600 mg PO Q12H PRN (Reason: Congestion) carvedilol 12.5 mg Tablet 12.5 mg PO BIDM Qty: 60 0RF amlodipine 10 mg Tablet 5 mg PO BID Qty: 60 0RF levofloxacin 750 mg Tablet 750 mg PO Q OTHER DAY Qty: 4 0RF Rx Instructions: Started on 03/29/24 - x 10 day supply (only 5 tablets dispensed) Referrals Referrals: Cinda Zafar MD [Outside Practitioners] - Discharge Problem: Pulmonary edema Qualifiers: Chronicity: acute Qualified Code(s): J81.0 - Acute pulmonary edema Acute renal failure Qualifiers: Acute renal failure type: unspecified Qualified Code(s): N17.9 - Acute kidney failure, unspecified Acute respiratory failure Qualifiers: Respiratory failure complication: hypoxia Qualified Code(s): J96.01 - Acute respiratory failure with hypoxia
--- OUTSIDE RECORDS SUMMARY | 2024-07-09 07:11 | External Medical Summary ---
Author Name Unknown Address Unknown Organization [id number]:[facility]ORY [facility] [place] - [facility] [address] Laboratory Report Ordering Provider Test Date Status ELMIRA CABRERA 05/22/2024 21:19:00 Final Observation Date Value Abnormality Reference (Units ) Status WBC, Total 05/22/2024 21:19:00 11.63 Above high normal 4.00-10.80 (K/uL) Final RBC 05/22/2024 21:19:00 2.76 4.50-5.25 (M/uL) Final Hemoglobin 05/22/2024 21:19:00 8.3 Below low normal 14.0-16.8 (g/dL) Final HCT 05/22/2024 21:19:00 26.7 Below low normal 40.0-48.4 (%) Final MCV 05/22/2024 21:19:00 96.7 82.0-99.5 (fL) Final MCH 05/22/2024 21:19:00 30.1 27.0-34.0 (pg) Final MCHC 05/22/2024 21:19:00 31.1 32.0-36.0 (g/dL) Final RDW 05/22/2024 21:19:00 15.6 11.5-15.5 (%) Final Platelets 05/22/2024 21:19:00 210 140-400 (K/uL) Final MPV 05/22/2024 21:19:00 10.1 6.6-11.1 (fL) Final Nucleated erythrocytes/100 leukocytes [Ratio] in Blood by Automated count 05/22/2024 21:19:00 0 <=0 (/100 WBCs) Final Performing Location [facility]ORY [facility] [place] - [address] [place] [place] [address]
--- OUTSIDE RECORDS SUMMARY | 2024-07-09 07:11 | External Medical Summary | Summary of Care ---
Author Name Unknown Organization [facility] Address [address] [place] [address] Phone [phone] Care Team Providers Care Skidder Name Role Phone Sonya Dacosta MD Primary Care Provider [phone] Reason for Visit * Reason Onset Date Comments Other 05/22/2024 Encounter Details Date Type Department Care Team (Late st Contact Info) Description 05/22/2024 Telephone Nephrology, [address] [address] Services, Scheduling [address] [place] [address] Other Allergies Active Allergy Reactions Criticality Noted Date Comments Amoxicillin Hives 02/07/2014 Nsaids Edema face/lips/tongue High 02/07/2014 Penicillins Hives 02/07/2014 documented as of this encounter (statuses as of 05/22/2024) Medications Medication Sig Dispensed Refills Start Date End Date Status Levothyroxine Sodium 200 MCG Oral Tablet (Levoxyl) Take 1 Tablet by mouth in the morning. Takes at bedtime . 12/28/2023 Suspended Multivitamin Adult (Minerals) Oral Tablet 1 Tablet in the morning. 03/29/2024 Suspended Vitamin D3 50 MCG (2000 UT) Oral [...] as of this encounter (statuses as of 05/22/2024) Active Problems Problem Noted Date Diagnosed Date Renal hematoma, left 05/22/2024 ESRD (end stage renal disease) 05/22/2024 Abdominal pain 05/22/2024 HTN, goal below 140/90 04/20/2024 Chronic kidney disease with symptom management only, stage 4 (severe) 04/20/2024 Acquired hypothyroidism 04/20/2024 Rib pain on right side 03/27/2024 Costochondritis 03/27/2024 documented as of this encounter (statuses as of 05/22/2024) Social History Tobacco Use Types Packs/Day Years [...] 04/26/2024 Does the household have a re lar source of income? (Household - for ages [...] Miscellaneous Notes * Telephone Encounter - Cinda Gillespie OSA - 05/22/2024 9:59 AM EDT Good morning, Pt's on the line, she wanted to let Dr. Rose know that the pt is in the hospital with decreased kidney function. Thank you documented in this encounter Plan of Treatment Upcoming Encounters Date Type Department Care Team (Late st Contact Info) Description 06/08/2024 7:40 AM EDT Office Visit Family Practice [facility] [place] [address] [facility] [place] [address] Sonya Dacosta MD [address] [place] [address] 06/28/2024 8:30 AM EDT [facility] [place] [address] [place] [address] 08/09/2024 10:30 AM EST [facility] [address] [place] [address] Palak Meier CRNP [address] [place] [address] Health Maintenance Due Date Last Done Comments [...] of 2) 2020 COVID-19 Vaccine (1 - 2023-24 season) 2024 Influenza Vaccine (FLU shot) (#1) 2024 07/04/2013, 07/24/2012 PTH 04/04/2025 04/04/2024 Nephrology Referral 04/06/2025 04/06/2024 TSH 04/20/2025 04/20/2024, 03/27/2024 Hgb 05/22/2025 05/22/2024, 09/0 11/2023, 05/16/2024, Additional history exists Phosphate 05/22/2025 05/22/2024, 04/04/2024 Diabetes Screening 05/22/2027 05/22/2024, 0 05/22/2024, 05/16/2024, Additional history exists Lipid Panel 03/27/2029 03/27/2024 HPV (Gardasil) Vaccine Aged Out No lo nger eligible based on patient's age to complete this topic MENINGOCOCCAL (MENACTRA/MENVEO) Aged Out No longer eligible based on patient's age to complete this topic documented as of this encounter Medical Devices Implanted Type Area Industrial Designer Device Identifier Shelf Expiration Date Model / Serial / Lot Coil Emboli Tornado 3x2 - [id number] Implanted:Qty: 1 on 05/22/[address] [facility] [id number] 11/14/2028 [id number] / / [id number] Coil Fibered 2 10mm [id number] - [id number] Implanted:Qty: 1 on 05/22/2024 at [facility] [facility] [id number] 08/08/2026 [id number] / / [id number] Coil Emboli Tornado 3x2 - [id number] Implanted:Qty: 1 on 05/22/[address] [facility] [id number] 09/08/2028 [id number] / / [id number] Coil Emboli Tornado 3x2 - [id number] Implanted:Qty: 1 on 05/22/2024 at [facility] [id number] 08/22/2028 [id number] / / [id number] Cath Diag Cobra 2 [id number] - [id number] Implanted:Qty: 1 on 05/22/2024 at [facility] [id number] 07/24/2026 H78 [id number] / / [id number] documented as of this encounter Advance Directives [...] Advance Directives occurred with: Patient Care Teams Skidder Relationship Specialty Start Date End Date Sonya Dacosta MD [address] [place] [address] PCP - General Family Medicine 04/27/24 documented as of this encounter
--- OUTSIDE RECORDS SUMMARY | 2024-07-09 07:11 | External Medical Summary | Summary of Care ---
Author Name Unknown Organization [facility] Address [address] [place] [address] Phone [phone] Care Team Providers Care Business Process Engineer Name Role Phone Sonya Dacosta MD Primary Care Provider [phone] Reason for Visit * Reason Onset Date Comments Scheduling 05/10/2024 Call Back 05/18/2024 Encounter Details Date Type Department Care Team (Late st Contact Info) Description 05/10/2024 Telephone Nephrology, Em[facility] [address] [place] [address] ZemaAlesha lewis PA-C [address] [place] [address] Scheduling; Call Back Allergies Active Allergy Reactions Criticality Noted Date Comments Amoxicillin Hives 02/07/2014 Nsaids Edema face/lips/tongue High 02/07/2014 Penicillins Hives 02/07/2014 documented as of this encounter (statuses as of 05/18/2024) Medications Medication Sig Dispensed Refills Start Date [...] the morning. 90 Capsule 3 04/11/2024 Active Carvedilol 12.5 MG Oral Tablet (Coreg) Take 1.5 Tablets by mouth in the morning and 1.5 Tablets before bedtime. 270 Tablet 3 04/23/2024 Active Ventolin HFA 108 (90 Base) MCG/ACT Inhalation Aerosol SolutionIndications:B ronchitis, complicated Inhale 2 Puffs by mouth 4 times a day as needed for Wheezing. 18 g 1 04/23/2024 Active Furosemide 40 MG Oral Tablet (Lasix)Indications:Ge neralized edema,Congestive heart failure, unspecified HF chronicity, unspecified heart failure type (HCC) Take 0.5 Tablets by mouth in the morning. 04/27/2024 Active amLODIPine Besylate 10 MG Oral Tablet (Norvasc)Indications: Hypertension goal BP (blood pressure) < 140/90 Take 0.5 Tablets by mouth in the morning and 0.5 Tablets before bedtime. 90 Tablet 5 05/10/2024 Active documented as of this encounter (statuses as of 05/18/2024) Active Problems Problem Noted Date Diagnosed Date HTN, goal below 140/90 04/20/2024 Chronic kidney disease with symptom management only, stage 4 (severe) 04/20/2024 Acquired hypothyroidism 04/20/2024 Rib pain on right side 03/27/2024 Costochondritis 03/27/2024 documented as of this encounter (statuses as of 05/18/2024) Social History Tobacco Use Types Packs/Day Years [...] on file documented as of this encounter Miscellaneous Notes * Telephone Encounter - Aaliyah Manrique RN - 05/18/2024 9:37 AM EDT TE with pt regarding follow up appointment. States he is having some discomfort from procedures done yesterday. Pt aware that provider wants time to review biopsy results.Appt scheduled for [facility] clinic 05/22/24. * Telephone Encounter - Natalee Tinsley OSA - 05/18/2024 9:12 AM EDT Pt called in to scheduling requesting to speak with Aaliyah regarding test results and labs. Requesting a call back at the earliest convenience. Thank you! * Addendum Note - Aaliyah Manrique RN - 05/11/2024 2:01 PM EDTAddended by: AALIYAH MANRIQUE on: 05/11/2024 02:01 PM Modules accepted: Orders * Telephone Encounter - Aaliyah Manrique RN - 05/11/2024 1:57 PM EDT TE with pt. He is aware to have labs and cxr done the day before his biopsy. Orders are placed. * Telephone Encounter - Genesis Chaney OSA - 05/10/2024 1:32 PM EDT Patient was called to schedule the Tunneled dialysis Catheter and CT Guided Renal biopsy patient was offered 2 dates of 05/25 and 05/28 for the procedures since we dont have coverage the end of May 14 and and our schedules are so full but he didn't want to wait that long so I transferred the call to [facility] to see if they had sooner , they are reviewing the order and will call the patient. documented in this encounter Plan of Treatment Upcoming Encounters Date Type Department Care Team (Late st Contact Info) Description 05/22/2024 11:00 AM EDT Office Visit Nephrology, [address] [id number] Ellyn Rose MD [address] [place] [address] 06/08/2024 7:40 AM EDT Office Visit Family Practice [facility] [place] [address] [facility] [place] [address] Sonya Dacosta MD [address] [place] [address] 06/28/2024 8:30 AM EDT Imaging Cardiac Studies, [facility] [address] [place] [address] 08/09/2024 10:30 AM EST Office Visit Cardiology, [facility] [address] [place] [address] Palak Meier CRNP [address] [facility] [place] [address] Health Maintenance Due Date Last Done Comments Pneumococcal Vaccine: Pediatrics (0 to 5 Years) and At-Risk Patients (6 to 64 Years) (1 of 2 - PCV) 1976 Depression Screening 1982 Albumin/Creatinine Ratio 1988 DTap/Tdap Vaccines (1 - Tdap) 1989 Hepatitis B Vaccine (1 of 3 - 19+ 3-dose series) 1989 Cologuard 11/26/2015 Colonoscopy 11/26/2015 Colorectal Cancer Screening 11/26/2015 Fecal Occult Blood Test 11/26/2015 Sigmoidoscopy 11/26/2015 Zoster Vaccines (1 of 2) 2020 COVID-19 Vaccine (1 - season) 2023 Influenza Vaccine (FLU shot) (#1) 2024 07/04/2013, 07/24/2012 GFR 11/16/2024 05/16/2024, 04/20, 05/03/2024, Additional history exists PTH 04/04/2025 04/04/2024 Phosphate 04/04/2025 04/04/2024 Nephrology Referral 04/06/2025 04/06/2024 TSH 04/20/2025 04/20/2024, 03/27/2024 Hgb 05/16/2025 05/16/2024, 04/20, 04/20/2024, Additional history exists Diabetes Screening 05/16/2027 05/16/2024, 0 05/08/2024, 05/03/2024, Additional history exists Lipid Panel 03/27/2029 03/27/2024 HPV (Gardasil) Vaccine Aged Out No lo nger eligible based on patient's age to complete this topic MENINGOCOCCAL (MENACTRA/MENVEO) Aged Out No longer eligible based on patient's age to complete this topic documented as of this encounter Medical Devices Not on filedocumented as of this encounter Results * XR CHEST 2 VIEWS (05/16/2024 8:49 AM EDT) Anatomical Region Laterality Modality Chest Computed Radiogr aphy 05/16/2024 9:16 AM EDT Impressions 05/16/2024 9:13 AM EDT IMPRESSION Mild opacities right lung base and moderate opacities left lower lung with similar appearance to prior exams and nonspecific. Lack of change lead this time interval favors chronic lung disease. Narrative 05/16/2024 9:13 AM EDT EXAM XR CHEST 2 VIEWS-05/16/2024 8:49 am HISTORY pre dialysis COMPARISON Chest 04/20/2024 and 03/27/2024 TECHNIQUE 2 views consisting of PA and lateral projections FINDINGS Mild opacities right lung base and moderate opacities left lower lung with similar appearance to prior exams and nonspecific. Lack of change lead this time interval favors chronic lung disease. Upper lungs clear. Pulmonary vasculature not engorged. Cardiomediastinal silhouette normal. Pleural spaces clear. Procedure Note Jered Oneal MD - 05/16/2024 EXAM XR CHEST 2 VIEWS-05/16/2024 8:49 am HISTORY pre dialysis COMPARISON Chest 04/20/2024 and 03/27/2024 TECHNIQUE 2 views consisting of PA and lateral projections FINDINGS Mild opacities right lung base and moderate opacities left lower lung withsimilar appearance to prior exams and nonspecific. Lack of change overthis time interval favors chronic lung disease. Upper lungs clear.Pulmonary vasculature not engorged. Cardiomediastinal silhouette normal.Pleural spaces clear. IMPRESSION IMPRESSION Mild opacities right lung base and moderate opacities left lower lung withsimilar appearance to prior exams and nonspecific. Lack of change overthis time interval favors chronic lung disease. Alesha Conlye PA-C RADIOLOGY (RA D GENERAL) * HEPATITIS B CORE ANTIBODIES IGG AND IGM (05/16/2024 8:39 AM EDT) Hepatitis B Core Antibodies IgG and IgM Negative Negative 05/16/2024 2:36 PM EDT [facility] [place] Venous blood specimen / Unknown Venipuncture / Unknown 05/16/2024 8:39 AM EDT 05/16/2024 8:39 AM EDT Alesha ACOSTA-C LAB BLOOD ORD ERABLES [facility] [address] [place] [address] * HEPATITIS B CORE ANTIBODY IGM (05/16/2024 8:39 AM EDT) Pathologist [facility] Hepatitis B Core Antibody IgM Negative Negative 05/16/2024 2:36 PM EDT [facility] Blood Venous blood specimen / Unknown Venipuncture / Unknown 05/16/2024 8:39 AM EDT 05/16/2024 8:39 AM EDT Alesha ACOSTA-C LAB BLOOD ORD ERABLES [facility] [address] [place] [address] * HEPATITIS B SURFACE ANTIBODY (05/16/2024 8:39 AM EDT) Pathologist [facility] Hepatitis B Surface Antibody, Quantitative <3.5 mIU/mL 05/16/2024 2:36 PM EDT [facility] Hepatitis B Surface Antibody, Qualitative Negative 05/16/2024 2:36 PM EDT [facility] Hepatitis B Surface Antibody, Interpretation NOT immune to Hepatitis B Virus 05/16/2024 2:36 PM EDT [facility] Comment: POSITIVE: >=11.5 mIU/mL INDETERMINATE: 8.5-<11.5 mIU/mL NEGATIVE: <8.5 mIU/mL Blood Venous blood specimen / Unknown Venipuncture / Unknown 05/16/2024 8:39 AM EDT 05/16/2024 8:39 AM EDT Alesha ACOSTA-C LAB BLOOD ORD ERABLES [facility] [address] [place] [address] * HEPATITIS B SURFACE ANTIGEN (05/16/2024 8:39 AM EDT) Hepatitis B Surface Antigen Negative Negative 05/16/2024 2:36 PM EDT LABORATORY [facility] Blood Venous blood specimen / Unknown Venipuncture / Unknown 05/16/2024 8:39 AM EDT 05/16/2024 8:39 AM EDT Alesha Gwendolyn [place] PA-C LAB BLOOD ORD ERABLES Performing Organization Address City/[facility]/ZIP Co de Phone Number [facility] [address] [place] [address] documented in this encounter Visit Diagnoses Diagnosis Chronic kidney disease with symptom management only, stage 4 (severe) (HCC)- Primary Chronic kidney disease with symptom management only, stage 4 (severe) (HCC) documented in this encounter Care Teams Business Process Engineer Relationship Specialty Start Date End Date Sonya Dacosta MD [address] [facility] [address] PCP - General Family Medicine 04/27/24 documented as of this encounter
--- OUTSIDE RECORDS SUMMARY | 2024-07-09 07:11 | External Medical Summary ---
Author Name Unknown Address Unknown Organization K1F:LAB[facility] [address] [facility] [place] [address] Laboratory Report Ordering Provider Test Date Status AUGIE OAKES 05/22/2024 02:11:21 Final Observation Date Value Abnormality Reference (Units ) Status Color of Urine by Auto 05/22/2024 02:11:21 Yellow Light Yellow, Yellow, Dark Yellow Final Clarity, Urine 05/22/2024 02:11:21 Clear Clear Final Glucose [Mass/volume] in Urine by Automated test strip 05/22/2024 02:11:21 Negative Negative (mg/dL) Final Bilirubin.total [Presence] in Urine by Automated test strip 05/22/2024 02:11:21 Negative Negative Final Ketones [Mass/volume] in Urine by Automated test strip 05/22/2024 02:11:21 Negative Negative (mg/dL) Final Specific gravity, Urine 05/22/2024 02:11:21 1.012 1.003-1.030 Final Hemoglobin [Presence] in Urine by Automated test strip 05/22/2024 02:11:21 Large Abnormal Negative Final pH, Urine 05/22/2024 02:11:21 6.0 5.0-7.5 (Units) Final Protein [Mass/volume] in Urine by Automated test strip 05/22/2024 02:11:21 100 Abnormal Negative (mg/dL) Final Urobilinogen [Mass/volume] in Urine by Automated test strip 05/22/2024 02:11:21 0.2 0.2, 1.0 (mg/dL) Final Nitrite [Presence] in Urine by Automated test strip 05/22/2024 02:11:21 Negative Negative Final Leukocyte esterase [Presence] in Urine by Automated test strip 05/22/2024 02:11:21 Negative Negative Final RBC, Urine 05/22/2024 02:11:21 50+ Abnormal 0-2 (/HPF) Final WBC, Urine 05/22/2024 02:11:21 6-9 Abnormal 0-2 (/HPF) Final Bacteria [#/area] in Urine sediment by Microscopy high power field 05/22/2024 02:11:21 26-50 Abnormal 0-25 (/HPF) Final [facility], [facility] 05/22/2024 02:11:21 Final Quantitative urine culture t o be performed Performing Location LABORATORY [place] [address] [address] [place] [address]
--- OUTSIDE RECORDS SUMMARY | 2024-07-09 07:11 | External Medical Summary | Summary of Care ---
Author Name Unknown Organization [facility] Address [address] [place] [facility] [place] [address] Phone [phone] Care Team Providers Care Certified Orthotist/Pedorthist Name Role Phone Sonya Dacosta MD Primary Care Provider [phone] Encounter Details Date Type Department Care Team (Late st Contact Info) Description 05/22/2024 Orders Only PATIENT PORTAL DO NOT DELETE THIS DEPT USED BY [place] [address] Allergies Active Allergy Reactions Criticality Noted Date [...] 05/22/2024 11:00 AM EDT Office Visit Nephrology, [address] [place] [address] Ellyn Rose MD [address] [place] [address] 06/08/2024 7:40 AM EDT Office Visit Family Practice [facility] [address] [facility] [place] [address] Sonya Dacosta MD [address] [facility] [place] [address] 06/28/2024 8:30 AM EDT Imaging Cardiac Studies[facility] [address] [facility] [address] 08/09/2024 10:30 AM EST Office Visit Cardiology, [facility] [address] Palak Meier CRNP [address] [facility] [address] Health Maintenance Due Date Last Done Comments [...] (FLU shot) (#1) 2024 07/04/2013, 07/24/2012 GFR 11/19/2024 05/22/2024, 04/20, 05/08/2024, Additional history exists PTH 04/04/2025 04/04/2024 Nephrology Referral 04/06/2025 04/06/2024 TSH 04/20/2025 04/20/2024, 03/27/2024 Hgb 05/22/2025 05/22/2024, 0804/2024, 05/08/2024, Additional history exists Phosphate 05/22/2025 05/22/2024, 04/04/2024 Diabetes Screening 05/22/2027 05/22/2024, 0 05/16/2024, 05/08/2024, Additional history exists Lipid Panel 03/27/2029 03/27/2024 HPV (Gardasil) Vaccine Aged Out No lo nger eligible based on patient's age to complete this topic MENINGOCOCCAL (MENACTRA/MENVEO) Aged Out No longer eligible based on patient's age to complete this topic documented as of this encounter Medical Devices Not on filedocumented as of this encounter Advance Directives * Full Code (Latest Code Status on File) Date Activated Date Inactivated Comments 05/22/2024 7:48 AM This order refl ects the patients wishes and were consensually agreed upon. Question Answer Comments Discussion of Advance Directives occurred with: Patient Care Teams Certified Orthotist/Pedorthist Relationship Specialty Start Date End Date Sonya Dacosta MD [address] [place] [address] PCP - General Family Medicine 04/27/24 documented as of this encounter
--- OUTSIDE RECORDS SUMMARY | 2024-07-09 07:11 | External Medical Summary | Summary of Care ---
Author Name Unknown Organization [facility] Address [address] [place] [address] Phone [phone] Care Team Providers Care Factory Manager Name Role Phone Sonya Dacosta MD Primary Care Provider [phone] Reason for Visit * Reason Onset Date Comments Scheduling 05/10/2024 Call Back 05/18/2024 Encounter Details Date Type Department Care Team (Late st Contact Info) Description 05/10/2024 Telephone Nephrology, Emeli Davison [address] [facility] [address] ZemaAlesha lewis PA-C [address] [facility] [place] [address] Scheduling; Call Back Allergies Active Allergy Reactions [...] encounter Miscellaneous Notes * Telephone Encounter - Natalee Tinsley OSA [...] long so I transferred the call to [facility] to see if they had sooner , they are reviewing the order and will call the patient. documented in this encounter Plan of Treatment Upcoming Encounters Date Type Department Care Team (Late st Contact Info) Description 06/08/2024 7:40 AM EDT Office Visit Family Practice [facility] [address] [facility] [place] [address] Sonya Dacosta MD [address] [facility] [place] [address] 06/28/2024 8:30 AM EDT Imaging Cardiac Studies, [facility] [address] [place] [address] 08/09/2024 10:30 AM EST Office Visit Cardiology, [facility] [address] [place] [address] Palak Meier CRNP [address] [facility] [place] [address] Health Maintenance Due Date Last Done Comments [...] of 2) 2020 COVID-19 Vaccine (1 - 2022-24 season) 2023 Influenza Vaccine (FLU shot) (#1) 2024 07/04/2013, 07/24/2012 GFR 11/16/2024 05/16/2024, 08/2 , 05/03/2024, Additional history exists PTH 04/04/2025 04/04/2024 [...] to prior exams and nonspecific. Lack of disaster recovery consultant this time interval favors chronic lung disease. Narrative 05/16/2024 9:13 AM EDT EXAM XR CHEST 2 VIEWS-05/16/2024 8:49 am HISTORY pre dialysis COMPARISON Chest 04/20/2024 and 03/27/2024 TECHNIQUE 2 views consisting of PA and lateral projections FINDINGS Mild opacities right lung base and moderate opacities left lower lung with similar appearance to prior exams and nonspecific. Lack of disaster recovery consultant this time interval favors chronic lung disease. [...] time interval favors chronic lung disease. Alesha Conley PA-C RADIOLOGY ([facility] GENERAL) * HEPATITIS B CORE ANTIBODIES IGG AND IGM (05/16/2024 8:39 AM EDT) Pathologist [facility] Hepatitis B Core Antibodies IgG and IgM Negative Negative 05/16/2024 2:36 PM EDT LABORATORY [facility] Venous blood specimen / Unknown Venipuncture / Unknown 05/16/2024 8:39 AM EDT 05/16/2024 8:39 AM EDT Alesha Conley PA-C LAB BLOOD ORD ERABLES LABORATORY [facility] [address] [place] [address] * HEPATITIS B CORE ANTIBODY IGM (05/16/2024 8:39 AM EDT) Pathologist [facility] Hepatitis B Core Antibody IgM Negative Negative 05/16/2024 2:36 PM EDT LABORATORY [facility] Venous blood specimen / Unknown Venipuncture / Unknown 05/16/2024 8:39 AM EDT 05/16/2024 8:39 AM EDT Alesha ACOSTA-Lamar LAB BLOOD ORD ERABLES Performing Organization Address City/[facility]/ZIP Co de Phone Number LABORATORY [facility] [address] [place] [address] * HEPATITIS B SURFACE ANTIBODY (05/16/2024 8:39 AM EDT) Hepatitis B Surface Antibody, Quantitative <3.5 mIU/mL 05/16/2024 2:36 PM EDT LABORATORY [facility]atitis B Surface Antibody, Qualitative Negative 05/16/2024 2:36 PM EDT LABORATORY [facility]atitis B Surface Antibody, Interpretation NOT immune to Hepatitis B Virus 05/16/2024 2:36 PM EDT LABORATORY [facility] Comment: POSITIVE: >=11.5 mIU/mL INDETERMINATE: 8.5-<11.5 mIU/mL NEGATIVE: <8.5 mIU/mL Blood Venous blood specimen / Unknown Venipuncture / Unknown 05/16/2024 8:39 AM EDT 05/16/2024 8:39 AM EDT Alesha ACOSTA-Lamar LAB BLOOD ORD ERABLES Performing Organization Address [facility] Co de Phone Number LABORATORY [facility] [address] [place] [address] * HEPATITIS B SURFACE ANTIGEN (05/16/2024 8:39 AM EDT) Hepatitis B Surface Antigen Negative Negative 05/16/2024 2:36 PM EDT LABORATORY [facility] Venous blood specimen / Unknown Venipuncture / Unknown 05/16/2024 8:39 AM EDT 05/16/2024 8:39 AM EDT Alesha ACOSTA-C LAB BLOOD ORD ERABLES LABORATORY [facility] [address] [place] [address] documented in this encounter Visit Diagnoses Diagnosis Chronic kidney disease with symptom management only, stage 4 (severe) (HCC)- Primary Chronic kidney disease with symptom management only, stage 4 (severe) (HCC) documented in this encounter Care Teams Factory Manager Relationship Specialty Start Date End Date Sonya Dacosta MD [address] [place] [address] PCP - General Family Medicine 04/27/24 documented as of this encounter
--- OUTSIDE RECORDS SUMMARY | 2024-07-09 07:11 | External Medical Summary ---
Author Name Unknown Address Unknown Organization [id number]:LABORATORY [facility] [place] [address] [facility] [address] Laboratory Report Ordering Provider Test Date Status ELMIRA CABRERA 05/22/2024 15:54:00 Final Observation Date Value Abnormality Reference (Units ) Status Phosphate 05/22/2024 15:54:00 8.5 Above high normal 2. 5-4.8 (mg/dL) Final Performing Location LABORATORY [facility] - [address] [place] [address]
--- OUTSIDE RECORDS SUMMARY | 2024-07-09 07:11 | External Medical Summary ---
Author Name Unknown Address Unknown Organization [id number]:LABORATORY [facility] - [address] [place] [address] Laboratory Report Ordering Provider Test Date Status AUGIE OAKES 05/22/2024 00:03:05 Final Observation Date Value Abnormality Reference (Units ) Status Lipase 05/22/2024 00:03:05 101 Above high normal 13 -60 (U/L) Final Performing Location LABORATORY [facility] - [address] [place] [address]
--- OUTSIDE RECORDS SUMMARY | 2024-07-09 07:11 | External Medical Summary ---
Author Name Unknown Address Unknown Organization K01:LABORATORY [facility] - [address] [place] [address] Laboratory Report Ordering Provider Test Date Status MARC VUONG 05/22/2024 15:49:00 Final Observation Date Value Abnormality Reference (Units ) Status ABO 05/22/2024 15:49:00 B Final RH 05/22/2024 15:49:00 Positive Final Performing Location LABORATORY [facility] - [address] [place] [address]
--- OUTSIDE RECORDS SUMMARY | 2024-07-09 07:11 | External Medical Summary ---
Author Name Unknown Address Unknown Organization K1F:LABORATORY [facility] - [address] [facility] [address] [place] [address] Laboratory Report Ordering Provider Test Date Status AUGIE OAKES 05/22/2024 00:03:05 Final Observation Date Value Abnormality Reference (Units ) Status SYNC LEUKOCYTES IN BLOOD BY AUTOMATED COUNT 05/22/2024 00:03:05 12.04 Above high normal 4.00-10.80 (K/uL) Final Segs 05/22/2024 00:03:05 87.3 Above high normal 40.0-75.0 (%) Final Lymphs % 05/22/2024 00:03:05 4.2 Below low normal 18.0-42.0 (%) Final Monos 05/22/2024 00:03:05 6.2 1.0-11.0 (%) Final Eosinophils 05/22/2024 00:03:05 1.5 0.0-6.0 (%) Final Basos 05/22/2024 00:03:05 0.3 0.0-2.0 (%) Final Immature Granulocyte, Percent 05/22/2024 00:03:05 0.5 0.0-2.0 (%) Final Absolute Segs 05/22/2024 00:03:05 10.51 Above high normal 1.80-7.70 (K/uL) Final Lymphs, absolute 05/22/2024 00:03:05 0.50 Below low normal 1.00-4.80 (K/ul) Final Monos, Abs 05/22/2024 00:03:05 0.75 0.00-1.10 (K/uL) Final Eos, Abs 05/22/2024 00:03:05 0.18 0.00-0.70 (K/uL) Final Basos, Abs 05/22/2024 00:03:05 0.04 0.00-0.20 (K/uL) Final Immature Granulocytes, Number 05/22/2024 00:03:05 0.06 0.00-0.20 (K/uL) Final Performing Location LABORATORY [facility] - [address] [place] [address] [address] [place] [address]
--- OUTSIDE RECORDS SUMMARY | 2024-07-09 07:11 | External Medical Summary ---
Author Name Unknown Address Unknown Organization K1F:LABORATORY [facility] - [address] [place] [address] Laboratory Report Ordering Provider Test Date Status AUGIE OAKES 05/22/2024 00:03:05 Final Observation Date Value Abnormality Reference (Units ) Status Phosphate 05/22/2024 00:03:05 6.5 Above high normal 2. 5-4.8 (mg/dL) Final Performing Location LABORATORY [facility] - [address] [place] [address]
--- OUTSIDE RECORDS SUMMARY | 2024-07-09 07:11 | External Medical Summary | Summary of Care ---
Author Name Unknown Organization [facility] Address [address] [place] [address] Phone [phone] Care Team Providers Care Fountain Clerk Name Role Phone Sonya Dacosta MD Primary Care Provider [phone] Encounter Details Date Type Department Care Team (Late st Contact Info) Description 05/21/2024 Orders Only Radiology, [place] [address] [place] [address] [place], [address] [place] [address] Interventional Radiology Note Allergies Active Allergy Reactions Criticality Noted Date Comments Amoxicillin Hives 02/07/2014 Nsaids Edema face/lips/tongue High 02/07/2014 Penicillins Hives 02/07/2014 documented as of this encounter (statuses as of 05/21/2024) Medications Medication Sig Dispensed Refills Start Date [...] as of this encounter (statuses as of 05/21/2024) Active Problems Problem Noted Date Diagnosed Date HTN, goal below 140/90 04/20/2024 Chronic kidney disease with symptom management only, stage 4 (severe) 04/20/2024 Acquired hypothyroidism 04/20/2024 Rib pain on right side 03/27/2024 Costochondritis 03/27/2024 documented as of this encounter (statuses as of 05/21/2024) Social History Tobacco Use Types Packs/Day Years [...] 05/22/2024 11:00 AM EDT Office Visit Nephrology, [address] [id number] Ellyn Rose MD [address] [place] [id number] 06/08/2024 7:40 AM EDT Office Visit Family Practice Emeli [facility] [place] [address] [place] [address] Sonya Dacosta MD [address] [place] [address] 06/28/2024 8:30 AM EDT Imaging Cardiac Studies, [facility] [address] [facility] [place] [address] 08/09/2024 10:30 AM EST Office Visit Cardiology, [facility] [address] [place] [address] Palak Meier CRNP [address] [place] [address] Health Maintenance Due Date Last Done Comments [...] filedocumented as of this encounter Care Teams Fountain Clerk Relationship Specialty Start Date End Date Sonya Dacosta MD [address] [facility] [place] [address] PCP - General Family Medicine 04/27/24 documented as of this encounter
--- OUTSIDE RECORDS SUMMARY | 2024-07-09 07:11 | External Medical Summary ---
Author Name Unknown Address Unknown Organization [id number]:LABORATORY [facility] [place] - [address] [facility] [address] Laboratory Report Ordering Provider Test Date Status ELMIRA CABRERA 05/22/2024 15:54:00 Final Observation Date Value Abnormality Reference (Units ) Status Magnesium 05/22/2024 15:54:00 3.0 Above high normal 1. 5-2.6 (mg/dL) Final Performing Location LABORATORY [facility] - [address] [place] [address]
--- OUTSIDE RECORDS SUMMARY | 2024-07-09 07:11 | External Medical Summary ---
Author Name Unknown Address Unknown Organization K1F:LABORATORY [facility] - [address] [place] [address] Laboratory Report Ordering Provider Test Date Status AUGIE OAKES 05/22/2024 01:57:56 Final Observation Date Value Abnormality Reference (Units ) Status Lactic Acid 05/22/2024 01:57:56 1.1 0.4-2.0 (mmol/L) Final Performing Location LABORATORY [facility] - [address] [place] [address]
--- OUTSIDE RECORDS SUMMARY | 2024-07-09 07:11 | External Medical Summary ---
Author Name Unknown Address Unknown Organization K1F:LABORATORY [facility] - [address] [place] [address] Laboratory Report Ordering Provider Test Date Status AUGIE OAKES 05/22/2024 00:03:05 Final Observation Date Value Abnormality Reference (Units ) Status WBC, Total 05/22/2024 00:03:05 12.04 Above high normal 4.00-10.80 (K/uL) Final RBC 05/22/2024 00:03:05 3.56 4.50-5.25 (M/uL) Final Hemoglobin 05/22/2024 00:03:05 10.8 Below low normal 14.0-16.8 (g/dL) Final HCT 05/22/2024 00:03:05 33.8 Below low normal 40.0-48.4 (%) Final MCV 05/22/2024 00:03:05 94.9 82.0-99.5 (fL) Final MCH 05/22/2024 00:03:05 30.3 27.0-34.0 (pg) Final MCHC 05/22/2024 00:03:05 32.0 32.0-36.0 (g/dL) Final RDW 05/22/2024 00:03:05 15.1 11.5-15.5 (%) Final Platelets 05/22/2024 00:03:05 174 140-400 (K/uL) Final MPV 05/22/2024 00:03:05 9.8 6.6-11.1 (fL) Final Nucleated erythrocytes/100 leukocytes [Ratio] in Blood by Automated count 05/22/2024 00:03:05 0 <=0 (/100 WBCs) Final Performing Location LABORATORY [facility] - [address] [place] [address]
--- OUTSIDE RECORDS SUMMARY | 2024-07-09 07:11 | External Medical Summary ---
Author Name Unknown Address Unknown Organization [id number]:LAB[facility]ATORY [facility] - [address] [place] [address] Laboratory Report Ordering Provider Test Date Status MARC VUONG 05/22/2024 15:49:00 Final Observation Date Value Abnormality Reference (Units ) Status ABO 05/22/2024 15:49:00 B Final RH 05/22/2024 15:49:00 Positive Final RED BLOOD CELL ANTIBODY SCREEN 05/22/2024 15:49:00 Negative Final SPECIMEN EXPIRATION DATE 05/22/2024 15:49:00 05/25/2024 23:59 Final Performing Location LAB[facility]ATORY [facility] - [address] [place] [address]
--- OUTSIDE RECORDS SUMMARY | 2024-07-09 07:11 | External Medical Summary ---
Author Name Unknown Address Unknown Organization K01:LABORATORY [place] - [address] [facility] [address] Laboratory Report Ordering Provider Test Date Status ELMIRA CABRERA 05/22/2024 16:51:40 Final Observation Date Value Abnormality Reference (Units ) Status Color of Urine by Auto 05/22/2024 16:51:40 Light Yellow Colorless, Light Yellow, Yellow, Dark Yellow Final Clarity, Urine 05/22/2024 16:51:40 Clear Clear Final Glucose [Mass/volume] in Urine by Automated test strip 05/22/2024 16:51:40 Negative Negative (mg/dL) Final Bilirubin.total [Presence] in Urine by Automated test strip 05/22/2024 16:51:40 Negative Negative Final Ketones [Mass/volume] in Urine by Automated test strip 05/22/2024 16:51:40 Negative Negative (mg/dL) Final Specific gravity, Urine 05/22/2024 16:51:40 1.018 1.003-1.030 Final Hemoglobin [Presence] in Urine by Automated test strip 05/22/2024 16:51:40 Moderate Abnormal Negative Final pH, Urine 05/22/2024 16:51:40 5.5 5.0-7.5 (Units) Final Protein [Mass/volume] in Urine by Automated test strip 05/22/2024 16:51:40 100 Abnormal Negative (mg/dL) Final Urobilinogen [Mass/volume] in Urine by Automated test strip 05/22/2024 16:51:40 Normal Normal (mg/dL) Final Nitrite [Presence] in Urine by Automated test strip 05/22/2024 16:51:40 Negative Negative Final Leukocyte esterase [Presence] in Urine by Automated test strip 05/22/2024 16:51:40 Negative Negative Final RBC, Urine 05/22/2024 16:51:40 30-49 Abnormal 0-2 (/HPF) Final WBC, Urine 05/22/2024 16:51:40 0-2 0-2 (/HPF) Final Bacteria [#/area] in Urine sediment by Microscopy high power field 05/22/2024 16:51:40 0-25 0-25 (/HPF) Final CULTURE, URINE - [facility] 05/22/2024 16:51:40 Final Culture not indicated by uri nalysis results\[id number]\ Performing Location LABORATORY [place] - [facility] [place] [address] [facility] [address]
--- OUTSIDE RECORDS SUMMARY | 2024-07-09 07:11 | External Medical Summary ---
Author Name Unknown Address Unknown Organization K1F:LABORATORY [facility] - [address] [place] [address] Laboratory Report Ordering Provider Test Date Status AUGIE OAKES 05/22/2024 00:03:05 Final Observation Date Value Abnormality Reference (Units ) Status Bilirubin, Direct 05/22/2024 00:03:05 0.3 0. 0-0.3 (mg/dL) Final Result may be falsely decrea sed due to hemolysis. Performing Location LABORATORY [facility] - [address] [place] [address]
--- OUTSIDE RECORDS SUMMARY | 2024-07-09 07:11 | External Medical Summary | Summary of Care ---
Author Name Unknown Organization [facility] Address [address] [place] [address] Phone [phone] Care Team Providers Care Director Geophysical Laboratory Name Role Phone Sonya Dacosta MD Primary Care Provider [phone] Reason for Visit * Reason Onset Date Comments Other 05/22/2024 Encounter Details Date Type Department Care Team (Late st Contact Info) Description 05/22/2024 Telephone Nephrology, [address] [address] Services, Scheduling [address] [place] [address] Other Allergies Active Allergy Reactions Criticality Noted [...] 5:10 PM EDT Sexual Orientation Straight 04/26/2024 5 :10 PM EDT Job Start Date Occupation Industry [...] EDT Office Visit Family Practice Emeli [place] [address] [facility] [place] [address] Sonya Dacosta MD [address] [facility] [place] [address] 06/28/2024 8:30 AM EDT [facility] [place] [address] [place] [address] 08/09/2024 10:30 AM EST [facility] [address] [place] [address] Palak Meier CRNP [address] [place] [address] Health Maintenance Due Date Last Done Comments [...] TSH 04/20/2025 04/20/2024, 03/27/2024 Hgb 05/22/2025 05/22/2024, 09/11/2023, 05/16/2024, Additional history exists Phosphate 05/22/2025 05/22/2024, [...] Directives occurred with: Patient Care Teams Director Geophysical Laboratory Relationship Specialty Start Date End Date Sonya Dacosta MD [address] [place] [address] PCP - General Family Medicine 04/27/24 documented as of this encounter
--- OUTSIDE RECORDS SUMMARY | 2024-07-09 07:11 | External Medical Summary ---
Author Name Unknown Address Unknown Organization K01:LABORATORY [facility] - [address] [facility] [address] Laboratory Report Ordering Provider Test Date Status MARC VUONG 05/22/2024 07:58:00 Final Observation Date Value Abnormality Reference (Units ) Status WBC, Total 05/22/2024 07:58:00 10.04 4.00-10.80 (K/uL) Final RBC 05/22/2024 07:58:00 3.52 4.50-5.25 (M/uL) Final Hemoglobin 05/22/2024 07:58:00 10.4 Below low normal 14.0-16.8 (g/dL) Final HCT 05/22/2024 07:58:00 33.9 Below low normal 40.0-48.4 (%) Final MCV 05/22/2024 07:58:00 96.3 82.0-99.5 (fL) Final MCH 05/22/2024 07:58:00 29.5 27.0-34.0 (pg) Final MCHC 05/22/2024 07:58:00 30.7 32.0-36.0 (g/dL) Final RDW 05/22/2024 07:58:00 14.9 11.5-15.5 (%) Final Platelets 05/22/2024 07:58:00 188 140-400 (K/uL) Final MPV 05/22/2024 07:58:00 10.2 6.6-11.1 (fL) Final Nucleated erythrocytes/100 leukocytes [Ratio] in Blood by Automated count 05/22/2024 07:58:00 0 <=0 (/100 WBCs) Final Performing Location LABORATORY [facility] - [address] [facility] [address]
--- OUTSIDE RECORDS SUMMARY | 2024-07-09 07:11 | External Medical Summary ---
Author Name Unknown Address Unknown Organization K1F:[facility] [address] [facility] [place] [address] Laboratory Report Ordering Provider Test Date Status AUGIE OAKES 05/22/2024 00:03:05 Final Observation Date Value Abnormality Reference (Units ) Status BUN 05/22/2024 00:03:05 90 Above high normal 6-20 (mg/dL) Final Creatinine 05/22/2024 00:03:05 8.7 Above high normal 0.6-1.2 (mg/dL) Final Glomerular filtration rate/1.73 sq M.predicted [Volume Rate/Area] in Serum, Plasma or Blood by Creatinine-based formula (CKD-EPI) 05/22/2024 00:03:05 7 Below low normal >=60 (mL/min) Final eGFR is calculated based on the CKD-EPI 2020 equation. Sodium 05/22/2024 00:03:05 134 Below low normal 135 -146 (mmol/L) Final Potassium 05/22/2024 00:03:05 4.3 3.5-5.1 (m mol/L) Final Cl 05/22/2024 00:03:05 98 98-107 (mm ol/L) Final CO2 05/22/2024 00:03:05 18 Below low normal 22- 32 (mmol/L) Final Anion gap 05/22/2024 00:03:05 18 Above high normal 7- 15 (mmol/L) Final Glucose 05/22/2024 00:03:05 142 Above high normal 70 -120 (mg/dL) Final Albumin 05/22/2024 00:03:05 3.8 3.8-5.0 (g /dL) Final AST (Aspartate aminotransferase) 05/22/2024 00:03:05 63 Above high normal 10-50 (U/L) Final Results may be falsely eleva julia due to hemolysis. Alk Phos 05/22/2024 00:03:05 46 35-130 (U/ L) Final Bilirubin, Total 05/22/2024 00:03:05 1.5 Above high no rmal <=1.2 (mg/dL) Final Calcium 05/22/2024 00:03:05 8.8 8.4-10.2 ( mg/dL) Final Protein 05/22/2024 00:03:05 6.5 6.0-8.3 (g /dL) Final ALT (Alanine aminotransferase) 05/22/2024 00:03:05 32 10-50 (U/L) Alexy davis [facility] [place] Location LABORATORY [facility] - [address] [place] [address] [place] [address]
--- OUTSIDE RECORDS SUMMARY | 2024-07-09 07:11 | External Medical Summary | Summary of Care ---
Author Name Unknown Organization [facility] Address [address] [place] [address] Phone [phone] Care Team Providers Care Used Car Make Ready Worker Name Role Phone Sonya Dacosta MD Primary Care Provider [phone] Reason for Visit * Reason Comments Abdominal Pain * Auth/Cert Specialty Diagnoses / Procedures Referred By Contac t Referred To Contact COUNT INCLUDES THE [facility] [address] [place] [address] Phone: [phone] Emergency Medicine [facility] [address] [place] [address] Referral ID Status Reason Start Date Expiration Date Visits Re quested Visits Authorized [id number] Encounter Details Date Type Department Care Team (Late st Contact Info) Description 05/21/2024 11:42 PM EDT - 05/22/2024 3:55 AM EDT Emergency [facility] Emergency Department ([facility]) [address] [place] [address] Terrance Rodriguez, DO [address] [place] [address] Hematoma of left kidney, initial encounter (Primary Dx); Hypertension, unspecified type Discharge Disposition: Short Term Hospital Allergies Active Allergy Reactions Criticality Noted Date [...] 90 Tablet 5 05/10/2024 Suspended Additional Information documented as of this encounter (statuses as [...] Sign Reading Time Taken Comments Blood Pressure 159/104 05/22/2024 3:00 AM EDT Pulse 70 05/22/2024 3:00 AM EDT Temperature 36.5 C (97.7 F) 05/21/2024 11:50 PM E DT Respiratory Rate 18 05/22/2024 3:00 AM EDT Oxygen Saturation 100% 05/21/2024 11:50 PM EDT Inhaled Oxygen Concentration - - Weight 106.6 kg (235 lb) 05/21/2024 11:50 PM EDT Height - - Body Mass Index 30.17 03/27/2024 8:15 AM EDT documented in this encounter ED Notes * Noble Pradhan RN - 05/21/2024 11:47 PM EDT Pt presents to ED with abd pain rated 10/10. Pt had recent kidney bx, was in the bathroom and had abd pain that radiates into back. Pt denies dysuria or hematuria. Pt restless and unable to sit still. Pt deneis chest pain, SOB. 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 Sent with pt to [facility] and placed into records to be scanned into Sealed. * ED Weekday Babysitter Note - Hailey Stafford RN - 05/22/2024 1:10 AM EDT 0100: pt arrives with his for severe abdominal pain and back pain. Pt is groaning and unable to lay still. Pt is most comfortable on his left side, feet to chest. Pt reports things went downhillfor him in March of this year when he developed pneumonia and then an VENKAT while receiving treatment.The VENKAT has not resolved and he went from good kidney function to poor function and GFR 8. Pt was at [facility] for a left kidney biopsy and dialysis port placement on , 05/17. Pt reported minimal pain until today, when he sat on the toilet to have a BM. Pt developed sudden, sharp pain that was unresolved with tylenol at home. Pt was supposed to have an appointment on 05/22 at 1100 to discuss when to begin dialysis treatment and to repeat kidney function labs. 0351: called report to C Rn at this time. [phone] documented in this encounter Plan of Treatment Upcoming Encounters Date Type Department Care Team (Late st Contact Info) Description 06/08/2024 7:40 AM EDT Office Visit Family Practice [facility] [address] [facility] [place] [address] Sonya Dacosta MD [address] [facility] [place] [address] 06/28/2024 8:30 AM EDT Imaging Cardiac Studies, [facility] [address] [place] [address] 08/09/2024 10:30 AM EST Office Visit Cardiology, [facility] [address] [place] [address] Palak Meier CRNP [address] [place] [address] Pending Results Name Type Priority Associated Diagnoses Date /Time CULTURE, URINE, QUANTITATIVE Lab STAT 05/22/2024 2:11 AM EDT Scheduled Orders Name Type Priority Associated Diagnoses Order Schedule US RENAL Medical Imaging STAT One Time for 1 Occurrences starting 05/22/2024 until 05/22/2024 CULTURE, URINE, QUANTITATIVE Lab STAT One Time for 1 Occurrences starting 05/22/2024 until 05/22/2024 Health Maintenance Due Date Last Done Comments [...] TSH 04/20/2025 04/20/2024, 03/27/2024 Hgb 05/22/2025 05/22/2024, 11/2023, 05/16/2024, Additional history exists Phosphate 05/22/2025 [...] this encounter Medical Devices Implanted Type Area Meter/Relay Craftsman Device Identifier Shelf Expiration Date Model / Serial / Lot Coil Emboli Tornado 3x2 - [id number] Implanted:Qty: 1 on 05/22/2024 at [facility] [id number] 11/14/2028 [id number] / / [id number] Coil Fibered 2 10mm [id number] - [id number] Implanted:Qty: 1 on 05/22/2024 at [facility] [employer]TR [id number] 08/08/2026 [id number] / / [id number] Coil Emboli Tornado 3x2 - [id number] Implanted:Qty: 1 on 05/22/2024 at [facility] [id number] 09/08/2028 [id number] / / [id number] Coil Emboli Tornado 3x2 - [id number] Implanted:Qty: 1 on 05/22/2024 at [facility] [id number] 08/22/2028 [id number] / / [id number] Cath Diag Cobra 2 [id number] - [id number] Implanted:Qty: 1 on 05/22/2024 at [facility] [employer] [employer] [id number] 07/24/2026 H78 [id number] / / [id number] documented as of this encounter Procedures Procedure Name Priority Date/Time Associated Diagnosis Comments URINALYSIS, REFLEX TO CULTURE STAT 05/22/2024 2:11 AM EDT URINALYSIS, REFLEX TO CULTURE (CUP ONLY) STAT 05/22/2024 2:11 AM EDT URINALYSIS, REFLEX TO CULTURE (NOT FOR NEUTROPENIC PATIENTS) STAT 05/22/2024 2:11 AM EDT LACTATE WITH REFLEX IF ABNORMAL STAT 05/22/2024 1:57 AM EDT US ABDOMEN COMPLETE STAT 05/22/2024 1 :[address] ABD/PELVIS WO IV/ORAL CONTRAST STAT 05/22/2024 12:25 AM EDT DIFFERENTIAL, AUTOMATED STAT 05/22/2024 12:03 AM EDT BILIRUBIN, DIRECT Add-on 05/22/2024 12: 03 AM EDT COMPREHENSIVE METABOLIC PANEL STAT 05/22/2024 12:03 AM EDT CBC STAT 05/22/2024 12:03 AM EDT PHOSPHORUS Routine 05/22/2024 12:03 AM EDT LIPASE STAT 05/22/2024 12:03 AM EDT CBC STAT 05/22/2024 12:03 AM EDT MAGNESIUM STAT 05/22/2024 12:03 AM EDT documented in this encounter Results * (ABNORMAL) URINALYSIS, REFLEX TO CULTURE (05/22/2024 2:11 AM EDT) Color, Urine Yellow Light Yellow, Yellow, Dark Yellow 05/22/2024 2:37 AM EDT LABORATORY [facility] Clarity, Urine Clear Clear 05/22/2024 2:37 AM EDT LABORATORY GL Glucose, Urine Negative Negative mg/dL 05/22/2024 2:37 AM EDT LABORATORY GL Bilirubin, Urine Negative Negative 05/22/2024 2:37 AM EDT LABORATORY GL Ketone, Urine Negative Negative mg/dL 05/22/2024 2:37 AM EDT LABORATORY GL Specific Hayes, Urine 1.012 1.003 - 1.030 05/22/2024 2:37 AM EDT LABORATORY GL Blood, Urine Large(A) Negative 05/22/2024 2:37 AM EDT LABORATORY GL pH, Urine 6.0 5.0 - 7.5 Units 05/22/2024 2:37 AM EDT LABORATORY GL Protein, Urine 100(A) Negative mg/dL 05/22/2024 2:37 AM EDT LABORATORY GL Urobilinogen, Urine 0.2 0.2, 1.0 mg/dL 05/22/2024 2:37 AM EDT LABORATORY GL Nitrite, Urine Negative Negative 05/22/2024 2:37 AM EDT LABORATORY GL Esterase, Urine Negative Negative 05/22/2024 2:37 AM EDT LABORATORY GL RBC, Urine 50+(A) 0 - 2 /HPF 05/22/2024 2:37 AM EDT LABORATORY GL WBC, Urine 6-9(A) 0 - 2 /HPF 05/22/2024 2:37 AM EDT LABORATORY GL Bacteria, Urine 26-50(A) 0 - 25 /HPF 05/22/2024 2:37 AM EDT LABORATORY GL Culture, Urine 05/22/2024 2:37 AM EDT LABORATORY GL Comment:Quantitative urine c ulture to be performed Urine Urine specimen obtained by clean catch procedure / Unknown Non-blood Collection / Unknown 05/22/2024 2:11 AM EDT 05/22/2024 2:16 AM EDT Terrance Rodriguez LAB URINE ORDERABLE S Performing Organization Address City/[facility]/ZIP Co de Phone Number LABORATORY [address] [address] * URINALYSIS, REFLEX TO CULTURE (CUP ONLY) (05/22/2024 2:11 AM EDT) Urinalysis, Reflex to Culture Specimen Specimen collected and received 05/22/2024 4:01 AM EDT LABORATORY [facility] Urine Urine specimen obtained by clean catch procedure / Unknown Non-blood Collection / Unknown 05/22/2024 2:11 AM EDT 05/22/2024 2:16 AM EDT Terrance Rodriguez LAB URINE ORDERABLE S Performing Organization Address [facility] Co de Phone Number LABORATORY [address] [address] * LACTATE WITH REFLEX IF ABNORMAL (05/22/2024 1:57 AM EDT) Lactate 1.1 0.4 - 2.0 mmol/L 05/22/2024 2:18 AM EDT LABORATORY [facility] Blood Venous blood specimen / Unknown Venipuncture / Unknown 05/22/2024 1:57 AM EDT 05/22/2024 2:01 AM EDT [facility] S Performing Organization Address City/[facility] Co de Phone Number LABORATORY [address] [address] * US ABDOMEN COMPLETE (05/22/2024 1:31 AM EDT) Anatomical Region Laterality Modality Abdomen, Body Ultrasound 05/22/2024 12:5 5 AM EDT Impressions 05/22/2024 1:38 AM EDT IMPRESSION: There is a 10 cm subcapsular hematoma of the left kidney. No evidence for active hemorrhage on provided color Doppler images. THIS DOCUMENT HAS BEEN ELECTRONICALLY SIGNED BY CORNELIO HARMON MD Narrative 05/22/2024 1:38 AM EDT PROCEDURE INFORMATION: Exam: US Abdomen Complete Exam date and time: 05/22/2024 12:55 AM Age: 53 years old Clinical indication: Abdominal pain; Additional info: Evaluate for cholelcystitis, left kidney biopsy last week, severe left flank pain radiating into left abdomen TECHNIQUE: Imaging protocol: Real-time ultrasound of the abdomen with image documentation. Complete exam. COMPARISON: US RENAL 05/09/2024 3:06 PM FINDINGS: Liver: Normal. No mass. Gallbladder: There is a small gallbladder polyp measuring up 4 mm. Biliary ducts: Normal. No stones. No dilation. Pancreas: The pancreas is not well visualized. Right kidney: Normal. No mass. No hydronephrosis. Left kidney: There is a 10 cm subcapsular hematoma of the left kidney. Spleen: The spleen is mildly enlarged. Aorta: Normal. No aneurysm. Inferior vena cava: Normal. Procedure Note Cornelio Harmon MD - 05/22/2024 PROCEDURE INFORMATION: Exam: US Abdomen Complete Exam date and time: 05/22/2024 12:55 AM Age: 53 years old Clinical indication: Abdominal pain; Additional info: Evaluate for cholelcystitis, left kidney biopsy last week, severe left flank painradiating into left abdomen TECHNIQUE: Imaging protocol: Real-time ultrasound of the abdomen with imagedocumentation. Complete exam. COMPARISON: US RENAL 05/09/2024 3:06 PM FINDINGS: Liver: Normal. No mass. Gallbladder: There is a small gallbladder polyp measuring up 4 mm. Biliary ducts: Normal. No stones. No dilation. Pancreas: The pancreas is not well visualized. Right kidney: Normal. No mass. No hydronephrosis. Left kidney: There is a 10 cm subcapsular hematoma of the left kidney. Spleen: The spleen is mildly enlarged. Aorta: Normal. No aneurysm. Inferior vena cava: Normal. IMPRESSION IMPRESSION: There is a 10 cm subcapsular hematoma of the left kidney. No evidence for active hemorrhage on provided color Doppler images. THIS DOCUMENT HAS BEEN ELECTRONICALLY SIGNED BY CORNELIO HARMON MD Terrance Rodriguez DO RAD ULTRASOUND * CT ABD/PELVIS WO IV/ORAL CONTRAST (05/22/2024 12:25 AM EDT) Anatomical Region Laterality Modality Body, Abdomen, Pelvis Computed T omography 05/22/2024 12:1 2 AM EDT Impressions 05/22/2024 1:31 AM EDT IMPRESSION: 1. 10.5 cm subcapsular hematoma of the left kidney. 2. There are bibasilar parenchymal consolidations which have a somewhat ground-glass appearance and correlation for viral or bacterial pneumonitis is suggested. THIS DOCUMENT HAS BEEN ELECTRONICALLY SIGNED BY CORNELIO HARMON MD Narrative 05/22/2024 1:31 AM EDT PROCEDURE INFORMATION: Exam: CT Abdomen And Pelvis Without Contrast Exam date and time: 05/22/2024 12:12 AM Age: 53 years old Clinical indication: Abdominal pain; Flank; Left; Additional info: Left flank pain radiates to left abdomen TECHNIQUE: Imaging protocol: Computed tomography of the abdomen and pelvis without contrast. Radiation optimization: All CT scans at this facility use at least one of these dose optimization techniques: automated exposure control; mA and/or kV adjustment per patient size (includes targeted exams where dose is matched to clinical indication); or iterative reconstruction. COMPARISON: 1. US RENAL 05/09/2024 3:06 PM 2. CR CHEST PA 05/16/2024 8:40 AM 3. XA Thorax 05/17/2024 9:37 AM FINDINGS: Lungs: There are bibasilar parenchymal consolidations which have a somewhat ground-glass appearance and correlation for viral or bacterial pneumonitis is suggested. Liver: Normal. Gallbladder and biliary ducts: No acute process. Pancreas: Normal. Spleen: Normal. Adrenal glands: The adrenal glands appear normal. Kidneys and ureters: There is a large subcapsular hematoma involving the left kidney which measures approximately 6.0 x 2.8 x 10.5 cm. Stomach and bowel: The stomach, small bowel, and colon are well-distended and show no evidence of wall thickening, masses, or obstruction. Appendix: No evidence of appendicitis. Intraperitoneal space: Unremarkable. Vasculature: The abdominal aorta and its major branches appear normal without evidence of aneurysm or stenosis. There are pelvic phleboliths. Lymph nodes: There are mildly prominent but nonenlarged and nonspecific retroperitoneal nodes. Mildly prominent nodes in the central mesentery, nonspecific. Urinary bladder: Unremarkable as visualized. Reproductive: No acute process. Bones/joints: The visualized osseous structures of the abdomen and pelvis appear normal for patient age. Soft tissues: There are fat containing bilateral inguinal hernias. Procedure Note Cornelio Harmon MD - 05/22/2024 PROCEDURE INFORMATION: Exam: CT Abdomen And Pelvis Without Contrast Exam date and time: 05/22/2024 12:12 AM Age: 53 years old Clinical indication: Abdominal pain; Flank; Left; Additional info: Leftflank pain radiates to left abdomen TECHNIQUE: Imaging protocol: Computed tomography of the abdomen and pelvis without contrast. Radiation optimization: All CT scans at this facility use at least one ofthese dose optimization techniques: automated exposure control; mA and/or kV adjustment per patient size (includes targeted exams where dose is matchedto clinical indication); or iterative reconstruction. COMPARISON: 1. US RENAL 05/09/2024 3:06 PM 2. CR CHEST PA 05/16/2024 8:40 AM 3. XA Thorax 05/17/2024 9:37 AM FINDINGS: Lungs: There are bibasilar parenchymal consolidations which have asomewhat ground-glass appearance and correlation for viral or bacterial pneumonitisis suggested. Liver: Normal. Gallbladder and biliary ducts: No acute process. Pancreas: Normal. Spleen: Normal. Adrenal glands: The adrenal glands appear normal. Kidneys and ureters: There is a large subcapsular hematoma involving theleft kidney which measures approximately 6.0 x 2.8 x 10.5 cm. Stomach and bowel: The stomach, small bowel, and colon are well-distendedand show no evidence of wall thickening, masses, or obstruction. Appendix: No evidence of appendicitis. Intraperitoneal space: Unremarkable. Vasculature: The abdominal aorta and its major branches appear normalwithout evidence of aneurysm or stenosis. There are pelvic phleboliths. Lymph nodes: There are mildly prominent but nonenlarged and nonspecific retroperitoneal nodes. Mildly prominent nodes in the central mesentery, nonspecific. Urinary bladder: Unremarkable as visualized. Reproductive: No acute process. Bones/joints: The visualized osseous structures of the abdomen and pelvis appear normal for patient age. Soft tissues: There are fat containing bilateral inguinal hernias. IMPRESSION IMPRESSION: 1. 10.5 cm subcapsular hematoma of the left kidney. 2. There are bibasilar parenchymal consolidations which have a somewhat ground-glass appearance and correlation for viral or bacterial pneumonitisis suggested. THIS DOCUMENT HAS BEEN ELECTRONICALLY SIGNED BY CORNELIO HARMON MD Terrance Rodriguez DO RAD CT * BILIRUBIN, DIRECT (05/22/2024 12:03 AM EDT) Bilirubin, Direct 0.3 0.0 - 0.3 mg/dL 05/22/2024 1:20 AM EDT LABORATORY [facility] Comment:Result may be falsel y decreased due to hemolysis. Blood Venous blood specimen / Unknown Venipuncture / Unknown 05/22/2024 12:03 AM EDT 05/22/2024 12:05 AM EDT Terrance Rodriguez LAB BLOOD ORDERABLE S Performing Organization Address [facility]/ZIP Co de Phone Number LABORATORY [address] [phone] * (ABNORMAL) MAGNESIUM (05/22/2024 12:03 AM EDT) Magnesium 3.0(H) 1.5 - 2.6 mg/dL 05/22/2024 12:23 AM EDT LABORATORY [facility] Blood Venous blood specimen / Unknown Venipuncture / Unknown 05/22/2024 12:03 AM EDT 05/22/2024 12:05 AM EDT [facility] S LABORATORY [address] [id number] * (ABNORMAL) PHOSPHORUS (05/22/2024 12:03 AM EDT) Phosphorus 6.5(H) 2.5 - 4.8 mg/dL 05/22/2024 12:23 AM EDT LABORATORY [facility] Blood Venous blood specimen / Unknown Venipuncture / Unknown 05/22/2024 12:03 AM EDT 05/22/2024 12:05 AM EDT Terrance Rodriguez LAB BLOOD ORDERABLE S LABORATORY GL [address] [place] [address] * (ABNORMAL) DIFFERENTIAL, AUTOMATED (05/22/2024 12:03 AM EDT) WBC 12.04(H) 4.00 - 10.80 K/uL 05/22/2024 12:07 AM EDT LABORATORY GL Neutrophils % 87.3(H) 40.0 - 75.0 % 05/22/2024 12:07 AM EDT LABORATORY GL Lymphocytes % 4.2(L) 18.0 - 42.0 % 05/22/2024 12:07 AM EDT LABORATORY GL Monocytes % 6.2 1.0 - 11.0 % 05/22/2024 12:07 AM EDT LABORATORY GL Eosinophils % 1.5 0.0 - 6.0 % 05/22/2024 12:07 AM EDT LABORATORY [facility] Basophils % 0.3 0.0 - 2.0 % 05/22/2024 12:07 AM EDT LABORATORY GL Immature Granulocytes % 0.5 0.0 - 2.0 % 05/22/2024 12:07 AM EDT LABORATORY GL Absolute Neutrophils 10.51(H) 1.80 - 7.70 K/uL 05/22/2024 12:07 AM EDT LABORATORY GL Absolute Lymphocytes 0.50(L) 1.00 - 4.80 K/ul 05/22/2024 12:07 AM EDT LABORATORY GL Absolute Monocytes 0.75 0.00 - 1.10 K/uL 05/22/2024 12:07 AM EDT LABORATORY GL Absolute Eosinophils 0.18 0.00 - 0.70 K/uL 05/22/2024 12:07 AM EDT LABORATORY GL Absolute Basophils 0.04 0.00 - 0.20 K/uL 05/22/2024 12:07 AM EDT LABORATORY GL Absolute Immature Granulocytes 0.06 0.00 - 0.20 K/uL 05/22/2024 12:07 AM EDT LABORATORY GL Blood Venous blood specimen / Unknown Venipuncture / Unknown 05/22/2024 12:03 AM EDT 05/22/2024 12:05 AM EDT Terrance Rodriguez LAB BLOOD ORDERABLE S LABORATORY [facility] [address] [place] [address] * (ABNORMAL) CBC (05/22/2024 12:03 AM EDT) WBC 12.04(H) 4.00 - 10.80 K/uL 05/22/2024 12:07 AM EDT LABORATORY [facility] RBC 3.56 4.50 - 5.25 M/uL 05/22/2024 12:07 AM EDT LABORATORY [facility] HGB 10.8(L) 14.0 - 16.8 g/dL 05/22/2024 12:07 AM EDT LABORATORY [facility] HCT 33.8(L) 40.0 - 48.4 % 05/22/2024 12:07 AM EDT LABORATORY [facility] MCV 94.9 82.0 - 99.5 fL 05/22/2024 12:07 AM EDT LABORATORY [facility] MCH 30.3 27.0 - 34.0 pg 05/22/2024 12:07 AM EDT LABORATORY [facility] MCHC 32.0 32.0 - 36.0 g/dL 05/22/2024 12:07 AM EDT LABORATORY [facility] RDW 15.1 11.5 - 15.5 % 05/22/2024 12:07 AM EDT LABORATORY [facility] PLT 174 140 - 400 K/uL 05/22/2024 12:07 AM EDT LABORATORY [facility] MPV 9.8 6.6 - 11.1 fL 05/22/2024 12:07 AM EDT LABORATORY [facility] nRBCs 0 <=0 /100 WBCs 05/22/2024 12:07 AM EDT LABORATORY [facility] Blood Venous blood specimen / Unknown Venipuncture / Unknown 05/22/2024 12:03 AM EDT 05/22/2024 12:05 AM EDT Terrance Rodriguez LAB BLOOD ORDERABLE S Performing Organization Address City/[facility]/ZIP Co de Phone Number LABORATORY GL [address] [place], [place] [phone] * (ABNORMAL) LIPASE (05/22/2024 12:03 AM EDT) Lipase 101(H) 13 - 60 U/L 05/22/2024 12:23 AM EDT LABORATORY GL Blood Venous blood specimen / Unknown Venipuncture / Unknown 05/22/2024 12:03 AM EDT 05/22/2024 12:05 AM EDT [facility] S Performing Organization Address [facility]/ZIP Co de Phone Number LABORATORY [address] [phone] * (ABNORMAL) COMPREHENSIVE METABOLIC PANEL (05/22/2024 12:03 AM EDT) BUN 90(H) 6 - 20 mg/dL 05/22/2024 12:23 AM EDT LABORATORY GL Creatinine 8.7(H) 0.6 - 1.2 mg/dL 05/22/2024 12:23 AM EDT LABORATORY GL Estimated Glomerular Filtration Rate 7(L) >=60 mL/min 05/22/2024 12:23 AM EDT LABORATORY [facility] Comment:eGFR is calculated b ased on the CKD-EPI 2020 equation. Sodium 134(L) 135 - 146 mmol/L 05/22/2024 12:23 AM EDT LABORATORY [facility] Potassium 4.3 3.5 - 5.1 mmol/L 05/22/2024 12:23 AM EDT LABORATORY [facility] Chloride 98 98 - 107 mmol/L 05/22/2024 12:23 AM EDT LABORATORY [facility] CO2 18(L) 22 - 32 mmol/L 05/22/2024 12:23 AM EDT LABORATORY [facility] Anion Gap 18(H) 7 - 15 mmol/L 05/22/2024 12:23 AM EDT LABORATORY [facility] Glucose 142(H) 70 - 120 mg/dL 05/22/2024 12:23 AM EDT LABORATORY [facility] Albumin 3.8 3.8 - 5.0 g/dL 05/22/2024 12:23 AM EDT LABORATORY [facility] AST 63(H) 10 - 50 U/L 05/22/2024 12:23 AM EDT LABORATORY [facility] Comment:Results may be false ly elevated due to hemolysis. Alkaline Phosphatase 46 35 - 130 U/L 05/22/2024 12:23 AM EDT LABORATORY [facility] Bilirubin, Total 1.5(H) <=1.2 mg/dL 05/22/2024 12:23 AM EDT LABORATORY [facility] Calcium 8.8 8.4 - 10.2 mg/dL 05/22/2024 12:23 AM EDT LABORATORY [facility] Protein 6.5 6.0 - 8.3 g/dL 05/22/2024 12:23 AM EDT LABORATORY GL[facility] ALT 32 10 - 50 U/L 05/22/2024 12:23 AM EDT LABORATORY [facility] Blood Venous blood specimen / Unknown Venipuncture / Unknown 05/22/2024 12:03 AM EDT 05/22/2024 12:05 AM EDT Terrance García Michael LAB BLOOD ORDERABLE S LABORATORY [facility] [address] [place] [address] documented in this encounter Visit Diagnoses Diagnosis Hematoma of left kidney, initial encounter- Primary Hypertension, unspecified type documented in this encounter Administered Medications Inactive Administered Medications - up to 3 most recent administrations Medication Order MAR Action Action Date Dose Rate Site Acetaminophen (Ofirmev) inj 1,000 mg 1,000 mg, Intravenous, ONCE, 1 dose, On Tue05/22/24 at 0245, Administer over 15 Minutes, Administer undiluted over 15 minutes! NOTE: Maximum of 4000 mg per 24 hours of acetaminophen from all acetaminophen containing products., Indication: Patient is strictly NPO New Bag 05/22/2024 2:24 AM EDT 1,000 mg 400 mL/hr HYDROmorphone (Dilaudid) inj 0.25 mg 0.25 mg, IV Push, Q30 MIN PRN Pain, Severe, Pain, Breakthrough, Starting on Tue05/21/24 at 2357, Until Tue05/22/24 at 0537, For 3 doses Given 05/22/2024 12:36 AM EDT 0.25 mg HYDROmorphone (Dilaudid) inj 0.5 mg 0.5 mg, IV Push, ONCE, On Tue05/22/24 at 0030, For 1 dose Given 05/22/2024 12:07 AM EDT 0.5 mg HYDROmorphone (Dilaudid) inj 0.5 mg 0.5 mg, IV Push, ONCE, On Tue05/22/24 at 0230, For 1 dose Given 05/22/2024 2:04 AM EDT 0.5 mg NSS 0.9% 1,000 mL bolus infusion Peripheral IV, at 1,000 mL/hr Administer over 60 Minutes, Administer entire volume within 60 minutes or less., ONCE, 1 dose, On Tue05/22/24 at 0030 New Bag 05/22/2024 12:32 AM EDT 1,000 mL 1000 mL/hr ondansetron (Zofran) inj 4 mg 4 mg, IV Push, ONCE, On Tue05/22/24 at 0030, For 1 dose Given 05/22/2024 12:07 AM EDT 4 mg documented in this encounter Active and Recently Administered Medications Times are shown in EDT. Scheduled Medication Order 05/20/2024 05/21/2024 05/22/2024 Acetaminophen (Ofirmev) inj 1,000 mg (COMPLETED) 1,000 mg, Intravenous, ONCE, 1 dose, On Tue05/22/24 at 0245, Administer over 15 Minutes, Administer undiluted over 15 minutes! NOTE: Maximum of 4000 mg per 24 hours of acetaminophen from all acetaminophen containing products., Indication: Patient is strictly NPO 0224 (New Bag - Prov ider: Hailey Stafford RN)[id number] (Stopped - Provider: Lucy Roberts RN) HYDROmorphone (Dilaudid) inj 0.5 mg (COMPLETED) 0.5 mg, IV Push, ONCE, On Tue05/22/24 at 0030, For 1 dose 0007 (Given - Provid er: Hailey Stafford RN) HYDROmorphone (Dilaudid) inj 0.5 mg (COMPLETED) 0.5 mg, IV Push, ONCE, On Tue05/22/24 at 0230, For 1 dose 0204 (Given - Provid er: Hailey Stafford RN) NSS 0.9% 1,000 mL bolus infusion (COMPLETED) Peripheral IV, at 1,000 mL/hr Administer over 60 Minutes, Administer entire volume within 60 minutes or less., ONCE, 1 dose, On Tue05/22/24 at 0030 0032 (New Bag - Prov ider: Hailey Stafford RN)0225 (Stopped - Provider: Hailey Stafford RN) ondansetron (Zofran) inj 4 mg (COMPLETED) 4 mg, IV Push, ONCE, On Tue05/22/24 at 0030, For 1 dose 0007 (Given - Provid er: Hailey Stafford RN) PRN Medication Order 05/20/2024 05/21/2024 05/22/2024 HYDROmorphone (Dilaudid) inj 0.25 mg 0.25 mg, IV Push, Q30 MIN PRN Pain, Severe, Pain, Breakthrough, Starting on Tue05/21/24 at 2357, Until Tue05/22/24 at 0537, For 3 doses 0036 (Given - Provid er: Hailey Stafford RN) documented in this encounter Advance Directives * [...] Advance Directives occurred with: Patient Care Teams Used Car 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
--- OUTSIDE RECORDS SUMMARY | 2024-07-09 07:11 | External Medical Summary ---
Author Name Unknown Address Unknown Organization [id number]:LABORATORY [facility] - [facility] [address] [facility] [address] [facility] [address] Laboratory Report Ordering Provider Test Date Status MARC VUONG 05/22/2024 07:58:00 Final Observation Date Value Abnormality Reference (Units ) Status BUN 05/22/2024 07:58:00 90 Above high normal 6-20 (mg/dL) Final Creatinine 05/22/2024 07:58:00 9.2 Above high normal 0.6-1.2 (mg/dL) Final Glomerular filtration rate/1.73 sq M.predicted [Volume Rate/Area] in Serum, Plasma or Blood by Creatinine-based formula (CKD-EPI) 05/22/2024 07:58:00 6 Below low normal >=60 (mL/min) Final eGFR is calculated based on the CKD-EPI 2020 equation. Sodium 05/22/2024 07:58:00 133 Below low normal 135 -146 (mmol/L) Final Potassium 05/22/2024 07:58:00 4.5 3.5-5.1 (m mol/L) Final Cl 05/22/2024 07:58:00 98 98-107 (mm ol/L) Final CO2 05/22/2024 07:58:00 20 Below low normal 22- 32 (mmol/L) Final Anion gap 05/22/2024 07:58:00 15 7-15 (mmol /L) Final Glucose 05/22/2024 07:58:00 141 Above high normal 70 -120 (mg/dL) Final Calcium 05/22/2024 07:58:00 8.9 8.4-10.2 ( mg/dL) Final Performing Location LABORATORY [facility] - [address] [place] [address]
--- OUTSIDE RECORDS SUMMARY | 2024-07-09 07:11 | External Medical Summary ---
Author Name Unknown Address Unknown Organization [id number]:LABORATORY [facility] - [address] [address] Laboratory Report Ordering Provider Test Date Status AUGIE OAKES 05/22/2024 00:03:05 Final Observation Date Value Abnormality Reference (Units ) Status Magnesium 05/22/2024 00:03:05 3.0 Above high normal 1. 5-2.6 (mg/dL) Final Performing Location LABORATORY [facility] - [address] [address]
--- OUTSIDE RECORDS SUMMARY | 2024-07-09 07:11 | External Medical Summary ---
Author Name Unknown Address Unknown Organization [id number]:LABORATORY [facility] [place] - [address] [place], [place] [address] [address] Laboratory Report Ordering Provider Test Date Status ELMIRA CABRERA 05/22/2024 15:54:00 Final Observation Date Value Abnormality Reference (Units ) Status WBC, Total 05/22/2024 15:54:00 14.89 Above high normal 4.00-10.80 (K/uL) Final RBC 05/22/2024 15:54:00 3.01 4.50-5.25 (M/uL) Final Hemoglobin 05/22/2024 15:54:00 9.3 Below low normal 14.0-16.8 (g/dL) Final HCT 05/22/2024 15:54:00 28.6 Below low normal 40.0-48.4 (%) Final MCV 05/22/2024 15:54:00 95.0 82.0-99.5 (fL) Final MCH 05/22/2024 15:54:00 30.9 27.0-34.0 (pg) Final MCHC 05/22/2024 15:54:00 32.5 32.0-36.0 (g/dL) Final RDW 05/22/2024 15:54:00 15.4 11.5-15.5 (%) Final Platelets 05/22/2024 15:54:00 217 140-400 (K/uL) Final MPV 05/22/2024 15:54:00 9.7 6.6-11.1 (fL) Final Nucleated erythrocytes/100 leukocytes [Ratio] in Blood by Automated count 05/22/2024 15:54:00 0 <=0 (/100 WBCs) Final Performing Location LABORATORY [facility] - [address] [facility] [address]
--- OUTSIDE RECORDS SUMMARY | 2024-07-09 07:11 | External Medical Summary | Summary of Care ---
Author Name Unknown Organization [facility] Address [address] [place] [address] Phone [phone] Care Team Providers Care Invoice Checker Name Role Phone Sonya Dacosta MD Primary Care Provider Reason for Visit * Reason Onset Date Comments Scheduling 05/10/2024 Call Back 05/18/2024 Encounter Details Date Type Department Care Team (Late st Contact Info) Description 05/10/2024 Telephone Nephrology, Emeli Davison [address] [place] [address] ZemaAlesha lewis PA-C [address] [place] [address] Scheduling; Call Back Allergies Active Allergy Reactions [...] time to review biopsy results.Appt scheduled for [facility] clinic 05/22/24. * Telephone Encounter - Natalee [...] long so I transferred the call to [facility] to see if they had sooner , they are reviewing the order and will call the patient. documented in this encounter Plan of Treatment Upcoming Encounters Date Type Department Care Team (Late st Contact Info) Description 05/22/2024 11:00 AM EDT Office Visit Nephrology, [address] [id number] Ellyn Rose MD [address] [place] [address] 06/08/2024 7:40 AM EDT Office Visit Family Practice [facility] Davison [place] [address] [facility] [place] [address] Sonya Dacosta MD [address] [place] [address] 06/28/2024 8:30 AM EDT Imaging Cardiac Studies, [facility] [address] [place] [address] 08/09/2024 10:30 AM EST Office Visit Cardiology, [facility] [address] [place] [address] Palak Meier CRNP 132 [facility] [place] [address] Health Maintenance Due Date Last Done Comments [...] prior exams and nonspecific. Lack of change house attendant this time interval favors chronic lung disease. Narrative 05/16/2024 9:13 AM EDT EXAM XR CHEST 2 VIEWS-05/16/2024 8:49 am HISTORY pre dialysis COMPARISON Chest 04/20/2024 and 03/27/2024 TECHNIQUE 2 views consisting of PA and lateral projections FINDINGS Mild opacities right lung base and moderate opacities left lower lung with similar appearance to prior exams and nonspecific. Lack of change house attendant this time interval favors chronic lung disease. [...] Negative Negative 05/16/2024 2:36 PM EDT LABORATORY [facility] Blood Venous blood specimen / Unknown Venipuncture / Unknown 05/16/2024 8:39 AM EDT 05/16/2024 8:39 AM EDT Alesha ACOSTA-C LAB BLOOD ORD ERABLES LABORATORY [facility] [address] [place] [address] * HEPATITIS B CORE ANTIBODY IGM (05/16/2024 8:39 AM EDT) Pathologist [facility] Hepatitis B Core Antibody IgM Negative Negative 05/16/2024 2:36 PM EDT LABORATORY [facility] Blood Venous blood specimen / Unknown Venipuncture / Unknown 05/16/2024 8:39 AM EDT 05/16/2024 8:39 AM EDT Alesha ACOSTA-C LAB BLOOD ORD ERABLES LABORATORY [facility] [address] [place] [address] * HEPATITIS B SURFACE ANTIBODY (05/16/2024 8:39 AM EDT) Pathologist [facility] Hepatitis B Surface Antibody, Quantitative <3.5 mIU/mL 05/16/2024 2:36 PM EDT LABORATORY [facility] Hepatitis B Surface Antibody, Qualitative Negative 05/16/2024 2:36 PM EDT LABORATORY [facility] Hepatitis B Surface Antibody, Interpretation NOT immune to Hepatitis B Virus 05/16/2024 2:36 PM EDT LABORATORY [facility] Comment: POSITIVE: >=11.5 mIU/mL INDETERMINATE: 8.5-<11.5 mIU/mL NEGATIVE: <8.5 mIU/mL Blood Venous blood specimen / Unknown Venipuncture / Unknown 05/16/2024 8:39 AM EDT 05/16/2024 8:39 AM EDT Alesha ACOSTA-C LAB BLOOD ORD ERABLES LABORATORY [facility] [address] [place] [address] * HEPATITIS B SURFACE ANTIGEN (05/16/2024 8:39 AM EDT) Hepatitis B Surface Antigen Negative Negative 05/16/2024 2:36 PM EDT LABORATORY [facility] Blood Venous blood specimen / Unknown Venipuncture / Unknown 05/16/2024 8:39 AM EDT 05/16/2024 8:39 AM EDT Alesha Gwendolyn Conley PA-C LAB BLOOD ORD ERABLES Performing Organization Address City/[facility]/ZIP Co de Phone Number LABORATORY [facility] [address] [place] [address] documented in this encounter Visit Diagnoses Diagnosis Chronic kidney disease with symptom management only, stage 4 (severe) (HCC)- Primary Chronic kidney disease with symptom management only, stage 4 (severe) (HCC) documented in this encounter Care Teams Invoice Checker Relationship Specialty Start Date End Date Sonya Dacosta MD [address] [place] [address] PCP - General Family Medicine 04/27/24 documented as of this encounter
--- OUTSIDE RECORDS SUMMARY | 2024-07-09 07:11 | External Medical Summary ---
Author Name Unknown Address Unknown Organization [id number]:[facility] [place] [address] [place] [id number] Laboratory Report Ordering Provider Test Date Status AUGIE OAKES 05/22/2024 02:11:21 Final Observation Date Value Abnormality Reference (Units) Status Bacteria identified in Specimen by Culture 05/22/2024 02:11:21 No significant growth Final Test: Culture, Urine, Quanti tative
Specimen Source: Urine, Clean Catch
Specimen Type: Urine
Specimen Date: 05/22/2024 021
Result Date: 05/23/2024 0832
Result Status: Final result
Resulting Lab: [facility]ORY [facility]
[address]
[facility] [address]

CULTURE

No significant growth

null Performing Location LAB[facility]ATORY [facility] [place] [address] [facility] [address]
--- OUTSIDE RECORDS SUMMARY | 2024-07-09 07:11 | External Medical Summary | Summary of Care ---
Author Name Unknown Organization [facility] Address [address] [place] [address] Phone [phone] Care Team Providers Care Outsole Compressor Name Role Phone Sonya Dacosta MD Primary Care Provider [phone] Reason for Visit * Reason Onset Date Comments Outpatient Testing 05/18/2024 Encounter Details Date Type Department Care Team (Late st Contact Info) Description 05/18/2024 Telephone Nephrology, [address] [address] Ellyn Rose MD [address] [place] [address] Outpatient Testing Allergies Active Allergy Reactions Criticality Noted Date [...] Miscellaneous Notes * Telephone Encounter - Aaliyah Palomares RN - 05/18/2024 2:35 PM EDT Lab orders placed TE with pt regarding need for labs. He is voicing frustration as he has had labs done earlier this week. We discussed the importance of frequent testing due to rapid decline. * Telephone Encounter - Ivania Knight LPN - 05/18/2024 9:24 AM EDT MD LOPEZ CXR for Dialysis intake * Telephone Encounter - Ivania Knight LPN - 05/18/2024 9:24 AM EDT ----- Message from Alesha Conley sent at 05/16/2024 3:16 PM EDT ----- CXR appears stable opacities of the lung bases are unchanged an suspected chronic lung disease (Labs ordered for IR??) documented in this encounter Plan of Treatment Upcoming Encounters Date Type Department Care Team (Late st Contact Info) Description 05/22/2024 11:00 AM EDT Office Visit Nephrology, [address] [address] Ellyn Rose MD [address] [place] [id number] 06/08/2024 7:40 AM EDT Office Visit Family Practice [facility] [address] [facility] [place] [address] Sonya Dacosta MD [address] [facility] [place] [address] 06/28/2024 8:30 AM EDT Imaging Cardiac Studies, [facility] [address] [facility] [place] [address] 08/09/2024 10:30 AM EST Office Visit Cardiology, [facility] [address] [facility] [place] [address] Palak Meire CRNP [address] [facility] [place] [address] Scheduled Orders Name Type Priority Associated Diagnoses Orde r Schedule RENAL FUNCTION PANEL Lab STAT Chronic kidney disease with symptom management only, stage 4 (severe) (HCC) Expected: 05/18/2024, Expires: 05/18/2025 CBC Lab STAT Chronic kidney disease with symptom management only, stage 4 (severe) (HCC) Expected: 05/18/2024, Expires: 05/18/2025 Health Maintenance Due Date Last Done Comments [...] of 2) 2020 COVID-19 Vaccine (1 - 2022- season) 2023 Influenza Vaccine (FLU shot) (#1) [...] as of this encounter Visit Diagnoses Diagnosis Chronic kidney disease with symptom management only, stage 4 (severe) (HCC)- Primary documented in this encounter Care Teams Outsole Compressor Relationship Specialty Start Date End Date Sonya Dacosta MD [address] [place] [address] PCP - General Family Medicine 04/27/24 documented as of this encounter
--- OUTSIDE RECORDS SUMMARY | 2024-07-09 07:11 | External Medical Summary ---
Author Name Unknown Address Unknown Organization K01:LABORATORY [facility] [place] - [address] [facility] [address] Laboratory Report Ordering Provider Test Date Status ELMIRA CABRERA 05/22/2024 15:54:00 Final Observation Date Value Abnormality Reference (Units ) Status BUN 05/22/2024 15:54:00 94 Above high normal 6-20 (mg/dL) Final Creatinine 05/22/2024 15:54:00 9.2 Above high normal 0.6-1.2 (mg/dL) Final Glomerular filtration rate/1.73 sq M.predicted [Volume Rate/Area] in Serum, Plasma or Blood by Creatinine-based formula (CKD-EPI) 05/22/2024 15:54:00 6 Below low normal >=60 (mL/min) Final eGFR is calculated based on the CKD-EPI 2020 equation. Sodium 05/22/2024 15:54:00 130 Below low normal 135 -146 (mmol/L) Final Potassium 05/22/2024 15:54:00 4.5 3.5-5.1 (m mol/L) Final Cl 05/22/2024 15:54:00 95 Below low normal 98- 107 (mmol/L) Final CO2 05/22/2024 15:54:00 19 Below low normal 22- 32 (mmol/L) Final Anion gap 05/22/2024 15:54:00 16 Above high normal 7- 15 (mmol/L) Final Glucose 05/22/2024 15:54:00 142 Above high normal 70 -120 (mg/dL) Final Calcium 05/22/2024 15:54:00 8.7 8.4-10.2 ( mg/dL) Final Performing Location LABORATORY [facility] - [address] [facility] [address]
--- OUTSIDE RECORDS SUMMARY | 2024-07-09 07:12 | External Medical Summary ---
Author Name Unknown Address Unknown Organization K09:LABORATORY [place] [address] Laboratory Report Ordering Provider Test Date Status RYLAN GIORDANO 05/16/2024 08:39:12 Final Observation Date Value Abnormality Reference (Units ) Status WBC, Total 05/16/2024 08:39:12 5.81 4.00-10.8 0 (K/uL) Final RBC 05/16/2024 08:39:12 4.02 4.50-5.25 (M/uL) Final Hemoglobin 05/16/2024 08:39:12 12.2 Below low normal 14 .0-16.8 (g/dL) Final HCT 05/16/2024 08:39:12 37.8 Below low normal 40. 0-48.4 (%) Final MCV 05/16/2024 08:39:12 94.0 82.0-99.5 (fL) Final MCH 05/16/2024 08:39:12 30.3 27.0-34.0 (pg) Final MCHC 05/16/2024 08:39:12 32.3 32.0-36.0 (g/dL) Final RDW 05/16/2024 08:39:12 15.5 11.5-15.5 (%) Final Platelets 05/16/2024 08:39:12 207 140-400 (K /uL) Final MPV 05/16/2024 08:39:12 9.5 6.6-11.1 ( fL) Final Performing Location LABORATORY [place] [address]
--- OUTSIDE RECORDS SUMMARY | 2024-07-09 07:12 | External Medical Summary ---
Author Name Unknown Address Unknown Organization K01:LABORATORY [place] [address] [place] [address] Laboratory Report Ordering Provider Test Date Status COLBY WHATLEY 05/16/2024 08:39:12 Final Observation Date Value Abnormality Reference (Units) Status Hepatitis B virus surface Ab [Units/volume] in Serum or Plasma by Immunoassay 05/16/2024 08:39:12 <3.5 (mIU/mL) Final Hepatitis B virus surface Ab [Presence] in Serum by Immunoassay 05/16/2024 08:39:12 Negative Final HEPATITIS B SURFACE ANTIBODY, INTERPRETATION 05/16/2024 08:39:12 NOT immune to Hepatitis B Virus Final POSITIVE: >=11.5 mIU/mL
INDETERMINATE: 8.5-<11.5 mIU/mL
NEGATIVE: <8.5 mIU/mL Performing Location LABORATORY [place] [address] [place] [address]
--- OUTSIDE RECORDS SUMMARY | 2024-07-09 07:12 | External Medical Summary | Summary of Care ---
Author Name Unknown Organization [facility] Address [address] [place] [address] Phone [phone] Care Team Providers Care Film Spooler Name Role Phone Sonya Dacosta MD Primary Care Provider [phone] Encounter Details Date Type Department Care Team (Late st Contact Info) Description 05/14/2024 Orders Only PATIENT PORTAL DO NOT DELETE THIS DEPT USED BY [place] [id number] Allergies Active Allergy Reactions Criticality Noted Date Comments Amoxicillin Hives 02/07/2014 Nsaids Edema face/lips/tongue High 02/07/2014 Penicillins Hives 02/07/2014 documented as of this encounter (statuses as of 05/14/2024) Medications Medication Sig Dispensed Refills Start Date [...] as of this encounter (statuses as of 05/14/2024) Active Problems Problem Noted Date Diagnosed Date HTN, goal below 140/90 04/20/2024 Chronic kidney disease with symptom management only, stage 4 (severe) 04/20/2024 Acquired hypothyroidism 04/20/2024 Rib pain on right side 03/27/2024 Costochondritis 03/27/2024 documented as of this encounter (statuses as of 05/14/2024) Social History Tobacco Use Types Packs/Day Years [...] Care Team (Late st Contact Info) Description 05/17/2024 8:00 AM EDT Appointment Interventional Radiology [facility] 1st Floor [address] [place] [address] 06/08/2024 7:40 AM EDT Office Visit Family Practice [facility] [address] [place] [address] Sonya Dacosta MD 200 [facility] [place] [address] 06/28/2024 8:30 AM EDT Imaging Cardiac Studies, [facility] [address] [facility] [place] [address] 08/09/2024 10:30 AM EST Office Visit Cardiology, [facility] [address] [facility] [place] [address] Palak Meier CRNP [address] [place] [address] Health Maintenance Due Date Last Done Comments Pneumococcal Vaccine: Pediatrics (0 to 5 Years) and At-Risk Patients (6 to 64 Years) (1 of 2 - PCV) 1976 Depression Screening 1982 Albumin/Creatinine Ratio 1988 DTaP,Tdap,and Td Vaccines (1 - Tdap) 1989 Hepatitis B Vaccine (1 of 3 - 19+ 3-dose series) 1989 Cologuard 11/26/2015 Colonoscopy 11/26/2015 Colorectal Cancer Screening 11/26/2015 Fecal Occult Blood Test 11/26/2015 Sigmoidoscopy 11/26/2015 Zoster Vaccines (1 of 2) 2020 COVID-19 Vaccine (1 - season) 2023 Influenza Vaccine (FLU shot) (#1) 2024 07/04/2013, 07/24/2012 GFR 11/08/2024 05/08/2024, 04/19, 04/27/2024, Additional history exists PTH 04/04/2025 04/04/2024 Phosphate 04/04/2025 04/04/2024 Nephrology Referral 04/06/2025 04/06/2024 TSH 04/20/2025 04/20/2024, 03/27/2024 Hgb 05/08/2025 05/08/2024, 08/10/2023, 04/04/2024, Additional history exists Diabetes Screening 05/08/2027 05/08/2024, 0 05/03/2024, 04/27/2024, Additional history exists Lipid Panel 03/27/2029 03/27/2024 HPV (Gardasil) Vaccine Aged Out No lo nger eligible based on patient's age to complete this topic MENINGOCOCCAL (MENACTRA/MENVEO) Aged Out No longer eligible based on patient's age to complete this topic documented as of this encounter Medical Devices Not on filedocumented as of this encounter Care Teams Film Spooler Relationship Specialty Start Date End Date Sonya Dacosta MD [address] [place] [address] PCP - General Family Medicine 04/27/24 documented as of this encounter
--- OUTSIDE RECORDS SUMMARY | 2024-07-09 07:12 | External Medical Summary | Summary of Care ---
Author Name Unknown Organization [facility] Address [address] [place] [address] Phone [phone] Care Team Providers Care Research Nurse Practitioner Name Role Phone Sonya Dacosta MD Primary Care Provider [phone] Reason for Visit * Reason Onset Date Comments Scheduling 05/10/2024 Encounter Details Date Type Department Care Team (Late st Contact Info) Description 05/10/2024 Telephone Nephrology, [address] Dav[address] 200 [facility] [place] [address] ZemaitisAlesha PA-C [address] [place] [address] Scheduling Allergies Active Allergy Reactions Criticality Noted Date Comments Amoxicillin Hives 02/07/2014 Nsaids Edema face/lips/tongue High 02/07/2014 Penicillins Hives 02/07/2014 documented as of this encounter (statuses as of 05/10/2024) Medications Medication Sig Dispensed Refills Start Date [...] as of this encounter (statuses as of 05/10/2024) Active Problems Problem Noted Date Diagnosed Date HTN, goal below 140/90 04/20/2024 Chronic kidney disease with symptom management only, stage 4 (severe) 04/20/2024 Acquired hypothyroidism 04/20/2024 Rib pain on right side 03/27/2024 Costochondritis 03/27/2024 documented as of this encounter (statuses as of 05/10/2024) Social History Tobacco Use Types Packs/Day Years [...] No 04/26/2024 Does the household have a [facility] source of income? (Household - for ages [...] encounter Miscellaneous Notes * Telephone Encounter - Genesis Chaney OSA [...] long so I transferred the call to [facility] to see if they had sooner , they are reviewing the order and will call the patient. documented in this encounter Plan of Treatment Upcoming Encounters Date Type Department Care Team (Late st Contact Info) Description 05/17/2024 8:00 AM EDT Appointment Interventional Radiology [facility], [address] 1[address] [place] [address] 06/08/2024 7:40 AM EDT Office Visit Family Practice [facility] [place] [address] [facility] [place] [address] Sonya Dacosta MD 200 [facility] [place] [address] 06/28/2024 8:30 AM EDT Imaging Cardiac Studies, [facility] [address] [facility] [place] [address] 08/09/2024 10:30 AM EST Office Visit Cardiology, [facility] [address] [facility] [place] [address] Palak Meier CRNP 132 [facility] [place] [address] Health Maintenance Due Date Last Done Comments [...] TSH 04/20/2025 04/20/2024, 03/27/2024 Hgb 05/08/2025 05/08/2024, 08/0 10/2023, 04/04/2024, Additional history exists Diabetes Screening 05/08/2027 [...] filedocumented as of this encounter Care Teams Research Nurse Practitioner Relationship Specialty Start Date End Date Sonya Dacosta MD [address] [place] [address] PCP - General Family Medicine 04/27/24 documented as of this encounter
--- OUTSIDE RECORDS SUMMARY | 2024-07-09 07:12 | External Medical Summary | Summary of Care ---
Author Name Unknown Organization [facility] Address [address] [place] [address] Phone [phone] Care Team Providers Care Health And Fitness Instructor Name Role Phone Sonya Dacosta MD Primary Care Provider [phone] Reason for Visit * Reason Onset Date Comments Scheduling 05/10/2024 Encounter Details Date Type Department Care Team (Late st Contact Info) Description 05/10/2024 Telephone Nephrology, Emeli Davison 200 [facility] [place] [address] ZemaitisAlesha PA-C [address] [place] [address] Scheduling Allergies Active Allergy Reactions Criticality Noted Date Comments Amoxicillin Hives 02/07/2014 Nsaids Edema face/lips/tongue High 02/07/2014 Penicillins Hives 02/07/2014 documented as of this encounter (statuses as of 05/11/2024) Medications Medication Sig Dispensed Refills Start Date [...] as of this encounter (statuses as of 05/11/2024) Active Problems Problem Noted Date Diagnosed Date HTN, goal below 140/90 04/20/2024 Chronic kidney disease with symptom management only, stage 4 (severe) 04/20/2024 Acquired hypothyroidism 04/20/2024 Rib pain on right side 03/27/2024 Costochondritis 03/27/2024 documented as of this encounter (statuses as of 05/11/2024) Social History Tobacco Use Types Packs/Day Years [...] No 04/26/2024 Does the household have a presbyterian española hospitallar source of income? (Household - for [...] encounter Miscellaneous Notes * Addendum Note - Aaliyah Manrique RN [...] long so I transferred the call to [facility] [place] [place] [facility] to see if they had sooner , they are reviewing the order and will call the patient. documented in this encounter Plan of Treatment Upcoming Encounters Date Type Department Care Team (Late st Contact Info) Description 05/17/2024 8:00 AM EDT Appointment Interventional Radiology [facility] [place] [place], Hailey Amador 1st [address] [place] [address] 06/08/2024 7:40 AM EDT Office Visit Family Practice [facility] 200 [facility] [place] [address] Sonya Dacosta MD 200 [facility] [place] [address] 06/28/2024 8:30 AM EDT Imaging Cardiac Studies, [facility] 132 [facility] [place] [address] 08/09/2024 10:30 AM EST Office Visit Cardiology, [facility] 132 [facility] [place] [address] Palak Meier CRNP 132 [facility] [place] [address] Scheduled Orders Name Type Priority Associated Diagnoses Orde r Schedule HEPATITIS B SURFACE ANTIGEN Lab Routine Chronic kidney disease with symptom management only, stage 4 (severe) (HCC) Expected: 05/15/2024 (Approximate), Expires: 05/11/2025 HEPATITIS B SURFACE ANTIBODY Lab Routine Chronic kidney disease with symptom management only, stage 4 (severe) (HCC) Expected: 05/15/2024 (Approximate), Expires: 05/11/2025 HEPATITIS B CORE ANTIBODY IGM Lab Routine Chronic kidney disease with symptom management only, stage 4 (severe) (HCC) Expected: 05/15/2024 (Approximate), Expires: 05/11/2025 HEPATITIS B CORE ANTIBODIES IGG AND IGM Lab Routine Chronic kidney disease with symptom management only, stage 4 (severe) (HCC) Expected: 05/15/2024 (Approximate), Expires: 05/11/2025 HEPATITIS C ANTIBODY SCREEN WITH PROGRESSION TO HEPATITIS C RNA QUANTITATIVE Lab Routine Chronic kidney disease with symptom management only, stage 4 (severe) (HCC) Expected: 05/15/2024 (Approximate), Expires: 05/11/2025 XR CHEST 2 VIEWS Medical Imaging Routine Chronic kidney disease with symptom management only, stage 4 (severe) (HCC) Expected: 05/15/2024 (Approximate), Expires: 06/11/2025 Health Maintenance Due Date Last Done Comments [...] Primary documented in this encounter Care Teams Health And Fitness Instructor Relationship Specialty Start Date End Date Sonya Dacosta MD [address] [place] [address] PCP - General Family Medicine 04/27/24 documented as of this encounter
--- OUTSIDE RECORDS SUMMARY | 2024-07-09 07:12 | External Medical Summary | Summary of Care ---
Author Name Unknown Organization [facility] Address [address] [place] [address] Phone [phone] Care Team Providers Care Pricing Manager Name Role Phone Sonya Dacosta MD Primary Care Provider [phone] Encounter Details Date Type Department Care Team (Late st Contact Info) Description 05/09/2024 3:00 PM EDT Imaging Radiology [facility] [address] [place] [address] VENKAT (acute kidney injury) (HCC) Allergies Active Allergy Reactions Criticality Noted Date [...] 04/23/2024 Active Furosemide 40 MG Oral Tablet (Lasix)Indication s:Generalized edema,Congestive heart failure, unspecified HF chronicity, unspecified heart failure type (HCC) Take 0.5 Tablets by mouth in the morning. 04/27/2024 Active amLODIPine Besylate 10 MG Oral Tablet (Norvasc)Indicati ons:Hypertension goal BP (blood pressure) < 140/90 Take 0.5 Tablets by mouth in the morning. 30 Tablet 5 04/11/2024 05/10/2024 Discontinued documented as of this encounter (statuses as [...] 7:40 AM EDT [facility] [address] [place] [place] [address] Sonya Dacosta MD 200 [facility] [place] [address] 06/28/2024 8:30 AM EDT Imaging Cardiac Studies, [facility] [address] [place] [address] 08/09/2024 10:30 AM EST Office Visit Cardiology, [facility] [address] [place] [address] Palak Meier CRNP 132 [place] [address] Health Maintenance Due Date Last Done Comments [...] Procedure Name Priority Date/Time Associated Diagnosis Comments US RENAL Routine 05/09/2024 3:28 PM EDT VENKAT (acute kidney injury) (HCC) documented in this encounter Results * US RENAL (05/09/2024 3:28 PM EDT) Anatomical Region Laterality Modality Abdomen, Body Ultrasound 05/09/2024 4:28 PM EDT Impressions 05/09/2024 4:25 PM EDT IMPRESSION: Kidneys within normal limits Narrative 05/09/2024 4:25 PM EDT EXAM: US RENAL HISTORY: VENKAT TECHNIQUE: Real-time scanning performed of kidneys, visualized regional abdominal aorta and urinary bladder. COMPARISON: None available FINDINGS: Kidneys: Renal size length: Right-10.6 cm and left-10.5 cm Each renal contour maintained as is cortex bilaterally in regard to thickness/echotexture. There is no discrete focal lesion. No hydronephrosis. No demonstrable intrarenal calculus or perinephric abnormality. Visualized regional abdominal aorta: No focal aneurysm. AP measurements: Proximal-2.3 cm, mid-1.8 cm and distal-1.7 cm. Urinary bladder: Not well distended limiting evaluation. No gross intraluminal lesion. Urinary bladder wall prominent which may reflect degree of distension rather than outlet obstruction, inflammatory/infectious or infiltrative process. Procedure Note Maximo Khan MD - 05/09/2024 EXAM: US RENAL HISTORY: VENKAT TECHNIQUE: Real-time scanning performed of kidneys, visualized regional abdominalaorta and urinary bladder. COMPARISON: None available FINDINGS: Kidneys: Renal size length: Right-10.6 cm and left-10.5 cm Each renal contour maintained as is cortex bilaterally in regard tothickness/echotexture. There is no discrete focal lesion. No hydronephrosis. No demonstrable intrarenal calculus or perinephric abnormality. Visualized regional abdominal aorta: No focal aneurysm. AP measurements:Proximal-2.3 cm, mid-1.8 cm and distal-1.7 cm. Urinary bladder: Not well distended limiting evaluation. No grossintraluminal lesion. Urinary bladder wall prominent which may reflectdegree of distension rather than outlet obstruction,inflammatory/infectious or infiltrative process. IMPRESSION IMPRESSION: Kidneys within normal limits Ellyn Rose MD RAD ULTRASOUND documented in this encounter Visit Diagnoses Diagnosis VENKAT (acute kidney injury) (HCC) Acute kidney failure, unspecified documented in this encounter Care Teams Pricing Manager Relationship Specialty Start Date End Date Sonya Dacosta MD [address] [place] [address] PCP - General Family Medicine 04/27/24 documented as of this encounter
--- OUTSIDE RECORDS SUMMARY | 2024-07-09 07:12 | External Medical Summary ---
Author Name Unknown Address Unknown Organization [facility] - [address] [place] [address] Laboratory Report Ordering Provider Test Date Status PHYLICIAXAVICYRUS 05/16/2024 08:39:12 Final Observation Date Value Abnormality Reference (Units ) Status Hep C Ab 05/16/2024 08:39:12 Negative Negative Final Further HCV quantitative fátima ting not performed per protocol. Performing Location [facility] - [address] [place] [address]
--- OUTSIDE RECORDS SUMMARY | 2024-07-09 07:12 | External Medical Summary | Summary of Care ---
Author Name Unknown Organization [facility] Address [address] [place] [address] Phone [phone] Care Team Providers Care Adzing And Boring Machine Operator Name Role Phone Sonya Dacosta MD Primary Care Provider [phone] Reason for Visit * Reason Onset Date Comments Follow Up 05/09/2024 Encounter Details Date Type Department Care Team (Late st Contact Info) Description 05/09/2024 Telephone Nephrology, [address] [address] Ellyn Rose MD [address] [place] [address] Follow Up Allergies Active Allergy Reactions Criticality Noted Date [...] 1 Tablet in the morning. 03/29/2024 Active amLODIPine Besylate 10 MG Oral Tablet (Norvasc)Indications: Hypertension goal BP (blood pressure) < 140/90 Take 0.5 Tablets by mouth in the morning. 30 Tablet 5 04/11/2024 Active Vitamin D3 50 MCG (1999 UT) [...] by mouth in the morning. 04/27/2024 Active documented as of this encounter (statuses [...] Telephone Encounter - Aaliyah Palomares RN - 05/09/2024 3:45 PM EDT Attempted to call pt but unable to leave message on machine. Will send message through My G and andfollow up with pt later today or in AM. documented in this encounter Plan of Treatment Upcoming Encounters Date Type Department Care Team (Late st Contact Info) Description 06/08/2024 7:40 AM EDT Office Visit Family Practice Emeli Davison [place] [address] [place] [address] [address] Sonya Dacosta MD 200 [place] [address] 06/28/2024 8:30 AM EDT Imaging Cardiac Studies, [facility] [address] [employer] [place] [address] 08/09/2024 10:30 AM EST [facility] 132 [facility] [place] [address] Palak Meier CRNP 132 [facility] [place] [address] Health Maintenance Due Date Last Done Comments [...] filedocumented as of this encounter Care Teams Adzing And Boring Machine Operator Relationship Specialty Start Date End Date Sonya Dacosta MD 200 [facility] [place] [address] PCP - General Family Medicine 04/27/24 documented as of this encounter
--- OUTSIDE RECORDS SUMMARY | 2024-07-09 07:12 | External Medical Summary ---
Author Name Unknown Address Unknown Organization [facility] - [address] [place] [address] Laboratory Report Ordering Provider Test Date Status COLBY WHATLEY 05/16/2024 08:39:12 Final Observation Date Value Abnormality Reference (Units ) Status Hep B surface Ag 05/16/2024 08:39:12 Negative Neg ative Final Performing Location [facility] - [address] [place] [address]
--- OUTSIDE RECORDS SUMMARY | 2024-07-09 07:12 | External Medical Summary | Summary of Care ---
Author Name Unknown Organization [facility] Address [address] [place] [place] [place] [address] Phone [phone] Care Team Providers Care Paste Plant Supervisor Name Role Phone Sonya Dacosta MD Primary Care Provider [phone] Reason for Referral * Precert (Within 10 days (routine)) - Authorized Specialty Diagnoses / Procedures Referred By Contac t Referred To Contact Radiology Diagnoses Acute renal failure, unspecified acute renal failure type (HCC) Procedures IR VENOUS ACCESS NON-MEDIPORT Alesha Conley PA-C [address] [place] [address] Referral ID Status Reason Start Date Expiration Date V isits Requested Visits Authorized [id number] Authorized 05/09/2024 999 999 Reason for Visit * Reason Comments Chronic Kidney Disease (CKD) Encounter Details Date Type Department Care Team (Late st Contact Info) Description 05/09/2024 1:30 PM EDT Office Visit Nephrology [address] [place] [address] Alesha Conley PA-C [address] [place] [address] Acute renal failure, unspecified acute renal failure type (HCC)*; HTN, goal below 140/90; Hyperparathyroidism, secondary renal (HCC); Vitamin D deficiency Allergies Active Allergy Reactions Criticality Noted Date [...] Sign Reading Time Taken Comments Blood Pressure 157/89 05/09/2024 1:16 PM EDT Pulse 69 05/09/2024 1:16 PM EDT Temperature 36.7 C (98 F) 05/09/2024 1:11 PM EDT Respiratory Rate 18 05/09/2024 1:11 PM EDT Oxygen Saturation 98% 05/09/2024 1:11 PM EDT Inhaled Oxygen Concentration - - Weight 105.2 kg (232 lb) 05/09/2024 1:11 PM EDT Height - - Body Mass Index 29.79 03/27/2024 8:15 AM EDT documented in this encounter Progress Notes * Alesha Conley PA-C - 05/09/2024 1:30 PM EDT Chief Complaint Patient presents with Chronic Kidney Disease (CKD) HPI:Patient is a 53 year old male with rapidaly decline renal function now CKD V. Fly De Luna is a 53 year old male seen in initial consultation for CKD stage IIIB by physician:Cinda Green MD. Past medical history of hypertension, hypothyroidism, hyperlipidemia, depression and CKD stage IIIB. Patient recently hospitalized at [facility] with pneumonia, hypertensive urgency and creatinine of 2.5. Renal ultrasound at outside hospital was unremarkable. We do not have baseline renal function despite extensive such in his prior records at the [facility]. patient was discharged on levofloxacin every other day. Review of Systems: General ROS: negative for - chills or fever Psychological ROS: negative for - mood swings ENT ROS: negative for - nasal congestion or nasal discharge Endocrine ROS: negative Respiratory ROS: no cough, , or wheezing +shortness of breath Cardiovascular ROS: no chest pain or dyspnea on exertion Gastrointestinal ROS: no abdominal pain, change in bowel habits, or black or bloody stools Genito-Urinary ROS: no dysuria, trouble voiding, or hematuria Musculoskeletal ROS: + muscle pain diffuse Neurological ROS: no TIA or stroke symptoms Dermatological ROS: negative for rash Since last visit -Denies any recent hospitalizations, procedures or infections. Was to cardiology today reports echo completed in March revealing moderate concentric left ventricular hypertrophy, LVEF in the range of 65 to 70%, with grade 2 diastolic dysfunction and evidence of elevated left-sided filling pressure by Doppler criteria per the report, no significant valvular disease. Bp at cards visit earlier today was elevated at 186/78. At current visit bp slightly improved by still elevated Pt is checking bp at home and has been running high at different parts of the day Does reports spilitting medications up - felt when he took them all at the same time he felt dizzy Pt does express some frustration with symptoms and not knowing treatment plan and did inquire aboutdialysis He reports he felt his health took a turn after having a fall and breaking ribs and completing PT Bodyaches and weakness slowly worsen after this and bp started to inc Weakness led him to the hospital with dx of pneumonia Patient admits to metallic taste, fatigue, decreased urinary output, leg swelling, bodyaches, SOB HISTORY: Current Outpatient Medications Medication Sig Dispense Refill Levothyroxine Sodium 200 MCG Oral Tablet (Levoxyl) Take 1 Tablet by mouth in the morning. Takes at bedtime . Multivitamin Adult (Minerals) Oral Tablet 1 Tablet in the morning. amLODIPine Besylate 10 MG Oral Tablet (Norvasc) Take 0.5 Tablets by mouth in the morning. 30 Tablet5 Vitamin D3 50 MCG (2000 UT) Oral Capsule Take 1 Capsule by mouth in the morning. 90 Capsule 3 Carvedilol 12.5 MG Oral Tablet (Coreg) Take 1.5 Tablets by mouth in the morning and 1.5 Tablets before bedtime. 270 Tablet 3 Ventolin HFA 108 (90 Base) MCG/ACT Inhalation Aerosol Solution Inhale 2 Puffs by mouth 4 times a day as needed for Wheezing. 18 g 1 Furosemide 40 MG Oral Tablet (Lasix) Take 0.5 Tablets by mouth in the morning. No current facility-administered medications for this visit. Review of patient's allergies indicates: Allergen Reactions Nsaids Edema face/lips/tongue Amoxicillin Hives Penicillins Hives Past Medical History: Diagnosis Date Depression Hypothyroidism Past Surgical History: Procedure Laterality Date UMBIL HERNIA REPAIR (REDUCIBLE) AGE 5+YR No [...] Used Substance and Sexual Activity Alcohol use: Yes Comment: 2 beers a month Drug use: [...] Stability Do you currently live in a custodial or have no steady place to sleep [...] - for ages0-17 years): Not on file Ambulation: Without assisted device OBJECTIVE: BP 157/89 | Pulse 69 | Temp 36.7 C (98 F) | Resp 18 | Wt 105.2 kg (232 lb) | SpO2 98% | BMI 29.79 kg/m | BSA 2.34 m Wt Readings from Last 1 Encounters: 05/09/24 105.2 kg (232 lb) General appearance: alert, winded with speech, HEAD: Normocephalic, No masses, lesions, tenderness Respiratory: clear to auscultation and no wheezes Heart: regular rate and regular rhythm Abdomen: abdomen soft, non-tender, and no CVA tenderness EXTREMITIES: +1 edema of the lower ext Skin: skin color, texture, turgor are normal NEURO: alert & oriented x 3 with fluent speech, no focal motor/sensory deficits No tremor Patient is a reliable historian of events Last 4 BP Readings: BP Readings from Last 4 Encounters: 05/09/24 157/89 05/09/24 184/98 05/04/24 142/90 04/27/24 136/88 Last 3 Weights: Wt Readings from Last 3 Encounters: 05/09/24 105.2 kg (232 lb) 05/09/24 104.5 kg (230 lb 6.4 oz) 05/04/24 105 kg (231 lb 8 oz) Estimated body mass index is 29.79 kg/m as calculated from the following: Height as of 03/27/24: 1.88 m (6' 2"). Weight as of this encounter: 105.2 kg (232 lb). LABS: Latest Reference Range & Units 04/04/24 12:40 04/20/24 13:37 04/25/24 08:34 04/27/24 09:17 05/03/24 08:13 05/08/24 08:58 Sodium 135 - 146 mmol/L 132 (L) 134 (L) 137 136 138 139 Potassium 3.5 - 5.1 mmol/L 3.8 4.4 4.0 4.4 3.8 3.7 Chloride 98 - 107 mmol/L 98 98 96 (L) 95 (L) 98 98 CO2 22 - 32 mmol/L 23 23 24 27 25 25 BUN 6 - 20 mg/dL 33 (H) 43 (H) 55 (H) 59 (H) 61 (H) 57 (H) Creatinine 0.6 - 1.2 mg/dL 2.7 (H) 3.7 (H) 4.8 (H) 4.9 (H) 5.5 (H) 6.1 (H) Estimated Glomerular Filtration Rate >=60 mL/min 27 (L) 19 (L) 14 (L) 13 (L) 12 (L) 10 (L) Anion Gap 7 - 15 mmol/L 11 13 17 (H) 14 15 16 (H) Glucose 70 - 120 mg/dL 118 100 122 (H) 119 119 115 Calcium 8.4 - 10.2 mg/dL 8.5 8.8 9.3 9.5 8.9 9.4 Phosphorus 2.5 - 4.8 mg/dL 3.8 Protein 6.0 - 8.3 g/dL 5.8 (L) (L): Data is abnormally low (H): Data is abnormally high Latest Reference Range & Units 04/04/24 12:43 04/25/24 08:55 Protein/ Creatinine Ratio, Urine <150 mg/g 303 (H) Protein, Random Urine mg/dL 52 56 93 URINE IMMUNOFIXATION, BENCE PIMENTEL PROTEIN, RANDOM URINE Rpt Rpt (H): Data is abnormally high Rpt: View report in Results Review for more information ASSESSMENT/PLAN: The patient's most recent labs (from several days ago) were reviewed and the assessment/plan is as follows: Steadily declining renal function most recent labs showing worsening renal function. ANCA panel recently added although GN not suspected. Renal US to be completed today and patient agreeable to renalbiopsy. Dialysis modalities briefly discussed and questions answered. Referral placed with CKD casemanager for urgent options class. Pt with uremic symptoms. Referral placed for catherter placement and will reach out for dialysis center placement. Labs should be monitored closely Acute renal failure, unspecified acute renal failure type (HCC) (Primary) - IR VENOUS ACCESS NON-MEDIPORT; Future; Expected date: 05/09/2024 - IR BIOPSY - BASIC METABOLIC PANEL; Future; Expected date: 05/11/2024 HTN, goal below 140/90 BP log for monitoring advised Hyperparathyroidism, secondary renal (HCC) Vitamin D deficiency Cont Vit D supplement Other orders - SURGICAL PATHOLOGY; Standing Case and care plan discussed directly with supervising Dr. Rose prior to and at the conclusion ofoffice visit Ensured patient inc communication Avoid medicines like aleve, advil, ibuprofen, aspirin more than 81 mg daily and other NSAIDS which are not good for kidney patients. Take only tylenol (acetaminophen) up to 2000 mg daily as needed for pain or as directed by your primary care provider. Reviewed previous status of kidney function and goals of care. All questions were answered. SARY Navarro documented in this encounter Nursing Notes * Aaliyah Palomares RN - 05/09/2024 1:14 PM EDT Follow up visit today due to rapidly worsening CKD labs. Pt is experiencing fatigue,nausea and metallic taste in mouth. States he has increased leg pain when walking. States blood pressures have remained elevated at home. Was last hospitalized 04/27/24 at [facility]. documented in this encounter Plan of Treatment Upcoming Encounters Date Type Department Care Team (Late st Contact Info) Description 05/17/2024 8:00 AM EDT Appointment Interventional Radiology [facility], Hailey Amador 1st Floor [address] [facility] [address] 06/08/2024 7:40 AM EDT Office Visit [facility] [employer] 200 [facility] [place] [address] Sonya Dacosta MD 200 [facility] [place] [address] 06/28/2024 8:30 AM EDT Imaging Cardiac Studies, [facility] 132 [facility] [place] [address] 08/09/2024 10:30 AM EST Office Visit Cardiology, [facility] 132 [facility] [place] [address] Palak Meier CRNP 132 [facility] [place] [address] Scheduled Orders Name Type Priority Associated Diagnoses Orde r Schedule IR VENOUS ACCESS NON-MEDIPORT Medical Imaging Routine Acute renal failure, unspecified acute renal failure type (HCC) Expected: 05/09/2024, Expires: 06/09/2025 IR BIOPSY Medical Imaging Routine Acute renal failure, unspecified acute renal failure type (HCC) Ordered: 05/09/2024 BASIC METABOLIC PANEL Lab Routine Acute renal failure, unspecified acute renal failure type (HCC) Expected: 05/11/2024, Expires: 05/11/2025 Health Maintenance Due Date Last Done Comments [...] as of this encounter Visit Diagnoses Diagnosis Acute renal failure, unspecified acute renal failure type (HCC)- Primary HTN, goal below 140/90 Unspecified essential hypertension Hyperparathyroidism, secondary renal (HCC) Secondary hyperparathyroidism (of renal origin) Vitamin D deficiency Unspecified vitamin D deficiency documented in this encounter Care Teams Paste Plant Supervisor Relationship Specialty Start Date End Date Sonya Dacosta MD [address] [place] [address] PCP - General Family Medicine 04/27/24 documented as of this encounter
--- OUTSIDE RECORDS SUMMARY | 2024-07-09 07:12 | External Medical Summary | Summary of Care ---
Author Name Unknown Organization [facility] Address [address] [place] [address] Phone [phone] Care Team Providers Care Sanitation Associate Name Role Phone Sonya Dacosta MD Primary Care Provider [phone] Encounter Details Date Type Department Care Team (Late st Contact Info) Description 03/30/2024 Result Scan Unspecified Department Deric Simpson MD [address] [place] [address] <No scans attached> Allergies Active Allergy Reactions Criticality Noted Date Comments Amoxicillin Hives 02/07/2014 Nsaids Edema face/lips/tongue High 02/07/2014 Penicillins Hives 02/07/2014 documented as of this encounter (statuses as of 05/15/2024) Medications No known medicationsdocumented as of this encounter (statuses as of 05/15/2024) Active Problems Problem Noted Date Diagnosed Date HTN, goal below 140/90 04/20/2024 Chronic kidney disease with symptom management only, stage 4 (severe) 04/20/2024 Acquired hypothyroidism 04/20/2024 Rib pain on right side 03/27/2024 Costochondritis 03/27/2024 documented as of this encounter (statuses as of 05/15/2024) Social History Tobacco Use Types Packs/Day Years [...] Care Team (Late st Contact Info) Description 05/16/2024 8:30 AM EDT Laboratory Laboratory [address] [place] [phone] [address] [place] [address] 05/17/2024 8:00 AM EDT Hospital Encounter Interventional Radiology [facility] [place] 1[facility] [address] [place] [address] 06/08/2024 7:40 AM EDT Office [place] [facility] [place] [facility] [place] [address] [place] [address] Sonya Dacosta MD [address] [place] [address] 06/28/2024 8:30 AM EDT Imaging [facility], [facility] [address] [facility] [address] 08/09/2024 10:30 AM EST [facility], [facility] [address] [facility]ier [facility] [address] Health Maintenance Due Date Last Done Comments [...] (#1) 2024 07/04/2013, 07/24/2012 GFR 11/08/2024 05/08/2024, 08/01/2024, 04/27/2024, Additional history exists PTH 04/04/2025 04/04/2024 [...] Procedure Name Priority Date/Time Associated Diagnosis Comments ECHOCARDIOLOGY SCANNED RESULT 03/30/2024 documented in this encounter Results * ECHOCARDIOLOGY SCANNED RESULT (03/30/2024) 03/30/2024 Deric Simpson MD ECHOCARDIOLOGY documented in this encounter Care Teams Sanitation Associate Relationship Specialty Start Date End Date Sonya Dacosta MD [address] [facility] [place] [address] PCP - General Family Medicine 04/27/24 documented as of this encounter
--- OUTSIDE RECORDS SUMMARY | 2024-07-09 07:12 | External Medical Summary ---
Author Name Unknown Address Unknown Organization [id number]:[facility] [place] [address] Laboratory Report Ordering Provider Test Date Status COLBY WHATLEY 05/16/2024 08:39:12 Final Observation Date Value Abnormality Reference (Units ) Status BUN 05/16/2024 08:39:12 73 Above high normal 6-20 (mg/dL) Final Creatinine 05/16/2024 08:39:12 7.7 Above high normal 0.6-1.2 (mg/dL) Final Glomerular filtration rate/1.73 sq M.predicted [Volume Rate/Area] in Serum, Plasma or Blood by Creatinine-based formula (CKD-EPI) 05/16/2024 08:39:12 8 Below low normal >=60 (mL/min) Final eGFR is calculated based on the CKD-EPI 2020 equation. Sodium 05/16/2024 08:39:12 139 135-146 (m mol/L) Final Potassium 05/16/2024 08:39:12 3.5 3.5-5.1 (m mol/L) Final Cl 05/16/2024 08:39:12 98 98-107 (mm ol/L) Final CO2 05/16/2024 08:39:12 23 22-32 (mmo l/L) Final Anion gap 05/16/2024 08:39:12 18 Above high normal 7- 15 (mmol/L) Final Glucose 05/16/2024 08:39:12 119 70-120 (mg /dL) Final Calcium 05/16/2024 08:39:12 9.3 8.4-10.2 ( mg/dL) Final Performing Location [facility] [place] [address]
--- OUTSIDE RECORDS SUMMARY | 2024-07-09 07:12 | External Medical Summary ---
Author Name Unknown Address Unknown Organization [id number][facility] [place] [address] [place] [address] Laboratory Report Ordering Provider Test Date Status COLBY WHATLEY 05/16/2024 08:39:12 Final Observation Date Value Abnormality Reference (Units ) Status Hep B Core IgM 05/16/2024 08:39:12 Negative Negat tg Final Performing Location [facility] - [address] [place] [address]
--- OUTSIDE RECORDS SUMMARY | 2024-07-09 07:12 | External Medical Summary | Summary of Care ---
Author Name Unknown Organization [facility] Address [address] [place] [address] Phone [phone] Care Team Providers Care Service Assistant Name Role Phone Sonya Dacosta MD Primary Care Provider [phone] Reason for Referral * Precert (Within 10 days (routine)) - Authorized Specialty Diagnoses / Procedures Referred By Contac t Referred To Contact Radiology Diagnoses Acute renal failure, unspecified acute renal failure type (HCC) Procedures IR VENOUS ACCESS NON-MEDIPORT Alesha Conley PA-C [address] [place] [address] Referral ID Status Reason Start Date Expiration Date V isits Requested Visits Authorized [id number] Authorized 05/09/2024 999 999 Reason for Visit * Precert (Within 10 days (routine)) - Authorized Specialty Diagnoses / Procedures Referred By Contac t Referred To Contact Radiology Diagnoses Acute kidney failure, unspecified (HCC) Procedures DE RENAL BIOPSY PRQ TROCAR/NEEDLE CHG CT GUIDANCE NEEDLE PLACEMENT Alesha Conley PA-C [address] [place] [address] Referral ID Status Reason Start Date Expiration Date V isits Requested Visits Authorized [id number] Authorized Precert 05/10/2024 02/03/2027 999 [id number] Encounter Details Date Type Department Care Team (Latest Contact Info) Description 05/17/2024 7:06 AM EDT - 05/17/2024 1:24 PM EDT Hospital Encounter Radiology Waiting Room [facility] 1st Floor [address] [place] [address] Adam Arias MD [address] [place] [address] Arrived Discharge Disposition: Home - Self Care Allergies [...] do you feel lonely or isolated from ose around you? Rarely 04/26/2024 Financial Resource [...] Sign Reading Time Taken Comments Blood Pressure 153/99 05/17/2024 1:00 PM EDT Pulse 70 05/17/2024 1:00 PM EDT Temperature 36.2 C (97.2 F) 05/17/2024 10:45 AM E DT Respiratory Rate 26 05/17/2024 1:00 PM EDT Oxygen Saturation 99% 05/17/2024 1:00 PM EDT Inhaled Oxygen Concentration - - Weight - - Height - - Body Mass Index - - documented in this encounter Discharge Instructions * Discharge Instr - AVS* Lalo Clements DO - 05/17/2024 10:44 AM EDT Discharge Date: 05/17/2024 Provider: Dr. Joaquin Cheek If you are experiencing any problems related to your procedure, please contact Interventional Radiology at [phone] during normal business hours: Tuesday - Tuesday, 8:00 am - 4:00 pm. If a problem occurs outside of normal business hours, please call the hospital jigger operator at [phone] and ask for the Interventional Radiologist geriatric nurse practitioner. Contact scheduling for Interventional Radiology at [phone] during normal business hours: Tuesday - Tuesday, 8:00 am - 4:00 pm. The information below provides you with the instructions and the list of medications you need to betaking following discharge from the hospital. If you have any questions, please ask before leaving.Please carry this letter with you when you see your doctor in the clinic. If you have questions, you can reach us at the numbers above. SPECIAL INSTRUCTIONS Random Kidney Biopsy Care After Your Biopsy If you experience pain or discomfort at the site you may use a cold pack on the site and/or take acetaminophen (Tylenol) or your preferred pain medicine as directed. Avoid strenuous activity for 24 to 48 hours after the procedure. Do not lift anything heavier than 10 pounds for 3 days after the procedure. Gradually increase your activity after 24 to 48 hours after the procedure. Keep the dressing clean and dry; change as needed. Dressing can be removed in 24 hours. You may shower after 24 hours. Gently wash the area and pat it dry. Please DO NOT take a bath, soak in a hot tub, or swim until the wound is completely healed. Follow Up Your requesting physician will contact you with the results of your test. Please allow 5 to 7 business days for your results. Please check [email or web address] messages or contact the referring physician for results. When to Call Interventional Radiology Call Interventional Radiology right away if you have any of the following: Fever above 100 degrees Fahrenheit Increased bleeding, redness, swelling, warmth, or discharge at the incision site. Constant or increasing pain, numbness, coldness, or tingling around the incision area. Vomiting or nausea that does not go away If at any time you experience any of the following or feel you are having a medical emergency, [email or web address] for emergency assistance. Chest Pain Sudden, severe shortness of breath Rapid heart rate Sudden onset of weakness Coughing up blood See your referring physician for follow-up appointment. Do not smoke or use tobacco products in any way! If you feel suicidal or homicidal, please call the crisis hotline at [phone]-SJEI ([phone]) MODERATE SEDATION You may have received medication that made you comfortable/sedated you during your procedure. This is considered moderate sedation. This medication was given to relax you. You may also not remember having the procedure done. It may take up to 24 hours for this medication to be out of your system. Because of this, you should observe the following for the next 24 hours: Do not drink alcohol or take depressant drugs. Do not operate any type of machinery that requires hand-eye coordination. Do not sign any legal papers or documents. Do not make any financial decisions. You should be in the presence of an adult for the remainder of the day. If you are experiencing any problems related to your procedure, you should contact the Interventional Radiology physician unless otherwise directed. Dialysis Catheter You are going home with a Dialysis Catheter - a small, soft tube that is placed in a vein in your neck or chest. It is used for dialysis. Care for this catheter is routinely provided at the dialysis center during each visit. These instructions will assist in the home care of your dialysis catheter. If your skin turns black around the exit site of your body, this is normal for antibiotic coated catheters. Some of the excessive or extra coating on them will rub off onto the skin. This substance will cause no harm, and is expected. Home Care Dressing changes are managed by visiting nurse service or Dialysis Center, if warranted. If you experience pain or discomfort at the incision sites, you may apply a cold pack to the site, or take Tylenol or your usual pain medication. If the discomfort does not get any better or there isredness or drainage from the site, notify your physician. When showering, please cover your incisions and/or exit site of catheter from skin with plastic wrap to avoid getting them wet. . Do not go swimming, take baths, or soak in a hot tub. If the catheter gets dislodged, secure it with dressing tape and call Interventional Radiology immediately, or go to the closest Emergency Department. Monitor for acute, bright red bleeding or severe swelling at the puncture site. If this occurs, apply firm pressure to the site and call 911 for emergency assistance or go to the closest Emergency Department. When to Call Interventional Radiology Call Interventional Radiology right away if you have any of the following: Fever above 100 degrees Fahrenheit Increased bleeding, redness, swelling, warmth, or discharge at the incision site. Constant or increasing pain, numbness, coldness, or tingling around the incision area. If at any time you experience any of the following or feel you are having a medical emergency, [email or web address] for emergency assistance. Chest Pain Sudden, severe shortness of breath Rapid heart rate Sudden onset of weakness Do not smoke or use tobacco products in any way! If you feel suicidal or homicidal, please call the crisis hotline at 4-118-281-PTPM ([phone]). MODERATE SEDATION You may have received medication that made you comfortable/sedated you during your procedure. This is considered moderate sedation. This medication was given to relax you. You may also not remember having the procedure done. It may take up to 24 hours for this medication to be out of your system. Because of this, you should observe the following for the next 24 hours: Do not drink alcohol or take depressant drugs. Do not operate any type of machinery that requires hand-eye coordination. Do not sign any legal papers or documents. Do not make any financial decisions. You should be in the presence of an adult for the remainder of the day. If you are experiencing any problems related to your procedure, you should contact the Interventional Radiology physician unless otherwise directed. Driving: You may resume driving in 24 hours . Diet: You may resume your current diet as tolerated. Return to work or school: You may return to school or work 24 hours after the procedure, unless otherwise instructed by the physician. documented in this encounter H&P Notes * Joaquin Cheek MD - 05/17/2024 7:49 AM EDT HISTORY & PHYSICAL - Interventional Radiology Service [facility] [address] [facility] [address] Name: Fly De Luna Location: RADIOLOGY WAITING ROOM/IR Date: 05/17/2024 Time: 7:50 AM CHIEF COMPLAINT: Renal failure HISTORY OF PRESENT ILLNESS: 53 year old male with renal failure presenting for renal biopsy and TDC placement Past Medical History: Diagnosis Date Depression Hypothyroidism Past Surgical History: Procedure Laterality Date UMBIL HERNIA REPAIR (REDUCIBLE) AGE 5+YR Social History Socioeconomic History Marital status: Spouse [...] Stability Do you currently live in a group home or have no steady place to sleep [...] - for ages0-17 years): Not on file No family history on file. Review of patient's allergies indicates: Allergen Reactions Nsaids Edema face/lips/tongue Amoxicillin Hives Penicillins Hives No current facility-administered medications for this encounter. REVIEW OF SYSTEMS: Constitutional: (-) fever chills sweats or weight loss OBJECTIVE: BP (!) 180/116 | Pulse 68 | Temp 36.3 C (97.3 F) (Tympanic) | Resp 22 | SpO2 100% PHYSICAL EXAM: CV: normal rate and rhythm, no murmur, gallops or rub LABS: CBC Results: PT INR Results: Results for orders placed or performed in visit on 05/16/24 PT INR Result Value Ref Range Prothrombin Time 16.0 (H) 11.6 - 15.2 seconds INR 1.3 (H) 0.8 - 1.2 BUN Results: Lab Results Component Value Date/Time BUN - [facility] 73 (H) 05/16/2024 08:39 AM BUN - [facility] 57 (H) 05/08/2024 08:58 AM BUN - [facility] 61 (H) 05/03/2024 08:13 AM BUN - [facility] 17 04/06/1997 08:12 AM Creatinine Results: Lab Results Component Value Date/Time CREATININE - [facility] 7.7 (H) 05/16/2024 08:39 AM CREATININE - [facility] 6.1 (H) 05/08/2024 08:58 AM CREATININE - [facility] 5.5 (H) 05/03/2024 08:13 AM CREATININE, RANDOM URINE - [facility] 170 05/08/2024 08:58 AM CREATININE, RANDOM URINE - [facility] 185 04/04/2024 12:43 PM Potassium Results: Lab Results Component Value Date/Time POTASSIUM - [facility] 3.5 05/16/2024 08:39 AM POTASSIUM - [facility] 3.7 05/08/2024 08:58 AM POTASSIUM - [facility] 3.8 05/03/2024 08:13 AM POTASSIUM - [facility] 4.4 04/06/1997 08:12 AM INFORMED CONSENT: Yes PRE-SEDATION ASSESSMENT: Renal Biopsy Tunneled Dialysis Catheter Placement Level of sedation planned: Moderate Patient's allergies reviewed: Yes H&P Review / Interval Note Documentation: I have reviewed the H&P previously performed, examined the patient today, and there are no new findings. Difficulty with sedation / anesthesia: No Sleep apnea: No History of snoring: Yes History of difficult intubation: No Decreased ROM neck flexion/extension: No Tracheal deviation: No Decreased ability to open mouth / TMJ: No Loose teeth / dentures / partial: No Congenital deformities / abnormalities: No Dysphagia: No Mallampati Classification: II - soft palate, uvula, fauces visible Chest: Clear Heart: Regular Rhythm Adequate Vascular Access: Yes ASA Risk Stratification (Select One): ASA 2 - Mild systemic disease, no functional limitations The patient was identified and the procedure verified: Yes IMPRESSION/PLAN: 53 year old male for renal biopsy and TDC placement Joaquin Cheek MD documented in this encounter Procedure Notes * Michael Wagoner RN - 05/17/2024 10:27 AM EDTAssociated Order(s): Central Line PROCEDURE NOTE [address] [address] Name: Fly De Luna Location: RADIOLOGY WAITING ROOM/IR Date: 05/17/2024 Time: 10:27AM Central Line General Information and Staff: Performed by: Lalo Clements DO Supervised by: Joaquin Cheek MD Procedure Date/Time: 05/17/2024 10:27 AM Patient Location: IR Indication: Dialysis Patient identity confirmed: Verbally with patient and arm band (see official TimeOut for additionalinformation) Time out: Immediately prior to the procedure a time out was completed Anticoagulation/Anti-platelet therapy: No Procedure Detail: Sterility Preparation: mask worn, sterile gloves worn, cap worn, sterile sheet used, sterile gown worn and full body drape Provider Hand Hygiene: antimicrobial soap and water Placement conditions: Elective Patient Position: Supine Prep: Chlorhexidine Local Anesthetic Used: Yes Catheter Type: Hemodialysis Tunneled Site: Chest Vessel: Internal jugular Procedure Laterality: Right Tunneled: Yes Other: 23 cm tip to cuff Catheter size: 14.5 Fr Catheter Internal Length (cm): 23 Lot Number: [id number] Number of Lumens: Double lumen Oximetric Catheter?: No Number of Needle Passes: 1 Placement: target vein identified, needle advanced into vein and blood aspirated and guidewire advanced into vein Radiologic Support with Sterile Technique: surface landmarks Identified, ultrasound guidance used and live fluoroscopy Sterile gel and probe cover used for ultrasound?: Yes Intravenous Verification: live fluoroscopy Outcomes/Complications: patient tolerated procedure well with no complications Estimated blood loss (mL): Minimal PA Catheter Placed?: No Post Insertion: Post Insertion Details: all ports aspirated, all ports flushed easily, guidewire was removed, examined and appears intact, line was sutured in place and dressing was applied Site cleansed: Chlorhexidine Line secured with: Monafilament Suture Dressing applied: Gel Chlorhexidine Gluconate, Transparent, Occlusive and Hemostatic Agent Tip Confirmation: Radiologic Tip Location: Line Ok to use and Other Location Other: RA documented in this encounter Nursing Notes * Luis Tobias RN - 05/17/2024 1:23 PM EDT DISCHARGE - POST INTERVENTIONAL RADIOLOGY PROCEDURE Patient meets discharge criteria for Interventional Radiology. Vital signs stable. Dressing clean, dry, and intact. IV site removed. Patient awake and oriented to pre procedure baseline. Discharge instructions given, no questions at this time. Patient tolerating liquids, with no nausea/vomiting. All belongings sent with patient. Discharged to home. Vital Signs: BP: 153/99 (05/17/24 1300) Temp: 36.2 C (97.2 F) (05/17/24 1045) Pulse: 70 (05/17/24 1300) Resp: 26 (05/17/24 1300) SpO2: 99 % (05/17/24 1300) Neurological: [place] Coma Scale Eyes Open: Spontaneous (05/17/24 09) Best Verbal Response: Verbally appropriate for age (05/17/24 0933) Best Motor Response: Obeys commands appropriate for age (05/17/24 0933) Coma Score: 15 (05/17/24 09) Activity: Four Extremities LOC: Fully Awake or Pre-Anesthetic Level of Consciousness BP: Less than (+/-) 20% Resp: Deep Breathe and Cough Freely (05/17 1034) Respiratory: Pain Assessment Flowsheet Row Most Recent Value Pain Assessment Scale [facility] Adult Scale 0-10 Pain Score 0 (no pain) * Luis Tobias RN - 05/17/2024 1:10 PM EDT Patient voided moderate amount of concentrated yellow urine. No signs of blood noted. * Michael Wagoner RN - 05/17/2024 10:34 AM EDT director of quality control note Name: Fly De Luna Date: 05/17/2024 Time: 8:27 AM Procedure: Random Renal Biopsy Patient ID band checked using two identifiers. Patient placed on procedure table, prone position, with comfort measures intact and safety strap in place. Hemodynamic monitoring established. Patient denies complaints at current time. Reevaluation statement: RN received verbal confirmation that the patient was reevaluated by Dr. Joaquin Cheek immediately prior to the sedation at 8:32 AM. 8:33 AM 2 mg Versed and 50 mcg Fentanyl 8:34 AM [employer] imaging obtained. 8:38 AM 10 mg Hydralazine given per order of Dr. Cheek. 8:45 AM Patient prepped and ready. 8:46 AM Timeout performed by Dr. Joaquin Cheek . 8:47 AM Procedure started by Dr. Joaquin Cheek , Dr. Lalo Clements and scrubbed RT Bladimir Mcfarland 1% buffered lidocaine given by doctor at left posterior flank site. 8:49 AM Needle placed. 8:50 AM 1 mg Versed and 50 mcg Fentanyl given for patient comfort. Images obtained. 8:52 AM Needle adjusted. 8:54 AM 5 mg Hydralazine given per order of Dr. Cheek. Images obtained. 9:00 AM Needle adjusted. Images obtained. 9:04 AM 5 mg Metoprolol given per order of Dr. Cheek. Needle adjusted. Images obtained. 9:07 AM Needle adjusted. Biopsy obtained. 9:10 AM Sample taken to lab by RT Babs. 9:21 AM Lab requesting more sample. 9:22 AM Biopsy obtained. 9:23 AM Gelfoarm injected through access. Access removed and manual pressure to site. Imaging continues. 9:27 AM 0.5 mg Atropine given per order of Dr. Cheek. 9:28 AM Hemostasis obtained. Area cleaned. Gauze and Tegaderm dressing applied. Final imaging obtained. 9:33 AM Report given to Ramo Richardson RN. director of quality control note 9:33 AM Report received from Carito Richardson RN. Patient moved from room IR CT4 to room IR 2 for next portion of procedure. Total medications given thus far Versed: 3 mg Fentanyl: 100 mcg Metoprolol: 5 mg Hydralazine: 15 mg Atropine: 0.5 mg 1% buffered lidocaine: 20 mL Patient ID band checked using two identifiers. Patient placed on procedure table, supine position, with comfort measures intact and safety strap in place. Hemodynamic monitoring placed and initiated.Patient denies any current complaints at current time. RT staff prepares and preps for procedure. Procedure by physician. 10:04 AM Timeout performed by Dr. Joaquin Cheek. Correct catheter/tube size verbalized and verified during timeout. 10:05 AM Procedure started by Dr. Joaquin Cheek and Dr. Clements , and scrubbed RT Lopez Ponce Ultrasound utilized for anatomical analysis of patient and access needle guidance. 1% buffered lidocaine given by doctor at right neck site. 10:08 AM Access obtained. Guidewire inserted. Images obtained. 10:12 AM 1% buffered lidocaine given by doctor at right chest site. 10:27 AM Catheter placed, see Central Line Note. Images obtained. All ports with positive blood return. Ports flushed. Lumens locked with sodium citrate. Blue caps applied. 10:33 AM Sutures placed. Procedure ends. 10:34 AM Area cleaned. Stat Seal applied to site. Chlorhexidine Tegaderm dressing applied. Lumens wrapped in gauze and tape. Patient tolerated procedure well without complications. All [...] for their procedure, and was sedated from 8:33 AM to 10:39 AM. Total medications given Versed: 3 mg Fentanyl: 100 mcg Sodium Citrate: 3.2 mL Metoprolol: 5 mg (additional 5 mg given preop) Atropine: 0.5 mg Hydralazine: 15 mg 1% buffered lidocaine: 30 mL Please see doctor's operative note for additional details. * Carri Holland LPN - 05/17/2024 8:00 AM EDT [facility] Information obtained via phone call? yes/no: yes Chart review? yes/no: no Spoke with patient/caregiver(name)? yes/no: patient IR procedure to be performed: Renal bx Patient with recent illness (within 2 weeks): yes/no: yes Sleep apnea? yes/no: no Uses cpap/bipap? yes/no: no Home O2 use(LPM)? yes/no: no Difficulty breathing when lying flat? yes/no: no Infectious Disease? (MRSA, VRE, CDIFF, TB, Hepatitis, HIV/Aids, COVID-19 other): yes/no: no History of falls (past 6 months)? yes/no: no Ambulation aid (walker, cane, crutches, wheelchair)? yes/no: no History of anesthesia complications (prolonged awakening, PONV, difficult airway)? yes/no: no Able to fully extend neck, turn head side to side and open mouth? yes/no: yes If female (11-55) chance of ? not applicable Contrast Dye Allergy? yes/no: no Allergy prepped ordered ? NO Review of systems Pulmonary complications? (COPD/Emphysema, Asthma, Oxygen use, tobacco history, shortness of breath,PE, Pulm HTN): yes/no: no Cardiovascular complications? (HTN, Pacemaker/defib, AR, Arrhythmia, CHF, Heart Murmur, Heart surgery): yes/no: yes HTN, goal below 140/90 Metabolic/Diabetes history? (Diabetes, steroid use, thyroid disease, obesity): yes/no: yes Acquired hypothyroidism Hematology/Oncology complications? (Anemia, bleeding/clotting disorder, anticoagulation/coagulopathy, cancer): yes/no: no Gastrointestinal complications? (Hernia, reflux, ulcers, liver problems, ostomy, IBS, diverticulitis): yes/no: no Gynecological complications? (Fibroids, PCOS) not applicable Genitourinary complications? (Kidney, bladder, prostate) yes/no: yes Chronic kidney disease with symptom management only, stage 4 (severe) (HCC) Musculoskeletal complications? (Arthritis, contractions, amputations, other bone/joint): yes/no: yes Rib pain on right side Costochondritis Neuro/Psych complications? (Seizures, stroke, mental handicap, paralysis, neuropathy, depression, anxiety, migraines, substance abuse): yes/no: no documented in this encounter Miscellaneous Notes * Sedation Note - Joaquin Cheek MD - 05/17/2024 10:42 AM EDT SEDATION NOTE Post Sedation Evaluation: Cardiovascular status: hemodynamically stable Level of consciousness: awake and alert Airway patency: patent Distress - NAD Hydration status - well hydrated Nausea/vomiting - not present Pain Evaluation Pain Assessment Flowsheet Row Most Recent Value Pain Assessment Scale [facility] Adult Scale 0-10 Pain Score 0 (no pain) Vital Signs: Temp: 36.3 C (97.3 F) (05/17 0718) BP: 141/89 (05/17 1030) Pulse: 66 (05/17 1030) Resp: 20 (05/17 1030) SpO2: 98 % (05/17 1030) I have personally examined the patient, prescribed the necessary medications as charted, and certify that Fly De Luna is recovered for safe discharge from my face to face care. * Postprocedure Note - Lalo Clements DO - 05/17/2024 8:00 AM EDT PROCEDURE NOTE - Interventional Radiology [facility] [place] [place] [address] Name: Fly De Luna Location: RADIOLOGY WAITING ROOM/IR Date: 05/17/2024 Time: 10:45AM PROCEDURE: CT Guided Random Renal Biopsy, Right Tunneled Dialysis Catheter Placement PHOTOCOMPOSITION KEYBOARD OPERATOR: Dr. Joaquin Cheek ASSISTANTS: Dr. Lalo Clements ANESTHESIA: conscious sedation COMPLICATIONS: none SPECIMEN: tissue to surgical pathology ESTIMATED BLOOD LOSS: less than 100 ml FINDINGS: Successful left inferior pole random renal biopsy and right tunneled dialysis catheter placement. documented in this encounter Plan of Treatment Upcoming Encounters Date Type Department Care Team (Late st Contact Info) Description 06/08/2024 7:40 AM EDT Office Visit [facility] [address] [facility] [place] [address] Sonya Dacosta MD [address] [place] [address] 06/28/2024 8:30 AM EDT Imaging Cardiac Studies, [facility] [address] [facility] [place] [address] 08/09/2024 10:30 AM EST Office Visit Cardiology, [facility] [address] [facility] [place] [address] Palak Meier CRNP [address] [facility] [place] [address] Pending Results Name Type Priority Associated Diagnoses Date /Time SURGICAL PATHOLOGY Pathology Routine 2023 9:07 AM EDT Scheduled Orders Name Type Priority Associated Diagnoses Orde r Schedule SURGICAL PATHOLOGY Pathology Routine One Ti me for 1 Occurrences starting 05/17/2024 until 05/17/2024, 1 completed Health Maintenance Due Date Last Done Comments [...] Vaccines (1 of 2) 2020 COVID-19 Vaccine (24 season) 2023 Influenza Vaccine (FLU shot) (#1) [...] Procedure Name Priority Date/Time Associated Diagnosis Comments IR BIOPSY Routine 05/17/2024 10:36 AM EDT Acute renal failure, unspecified acute renal failure type (HCC) IR VENOUS ACCESS NON-MEDIPORT Routine 05/17/2024 10:36 AM EDT Acute renal failure, unspecified acute renal failure type (HCC) ANE [facility] CENTRAL LINE Routine 05/17/2024 10:27 AM EDT documented in this encounter Results * IR VENOUS ACCESS NON-MEDIPORT (05/17/2024 10:36 AM EDT) Anatomical Region Laterality Modality Any X-Ray Angiograph y 05/17/2024 10:5 4 AM EDT Impressions 05/17/2024 12:07 PM EDT IMPRESSION: 1. Successful CT-guided percutaneous left kidney random renal biopsy biopsy. 2. Successful placement of a tunneled hemodialysis catheter. PLAN: Ordering clinician to follow-up results with patient. I have personally reviewed this examination and agree with the resident/fellow physician's interpretation. Narrative 05/17/2024 12:07 PM EDT PROCEDURE: 1. CT-guided percutaneous random renal biopsy. 2. Tunneled dialysis catheter placement. INDICATION: Rapidly worsening renal function. ATTENDING (OPERATING PHYSICIAN): Dr. Joaquin Cheek SCRUBBED RESIDENT (OPERATING PHYSICIAN): Dr. Lalo Clements SUPPORTING PROVIDER (SUPERVISOR BAKING): Bladimir MARR CONSENT: After a detailed discussion of the procedure, risks, benefits and alternative treatment options, informed consent was obtained. TIME OUT: A time out procedure was performed. The patient's identification was verified. Informed consent with agreement of procedure, site and position was obtained. All necessary equipment was available prior to procedure. CONTRAST: No contrast administered. COMPLICATIONS: None. ANESTHESIA: 30 mL 1% lidocaine subcutaneous. 3 mg Versed IV 100 mcg fentanyl IV SEDATION TIME: Start to end: 8:33 to 10:39 am. Qualified nurse sedation observer Ramo Amin RN. MEDICATIONS: See [facility] PROCEDURE DESCRIPTION: 1. CT guided random renal biopsy. After survey CT images of the bilateral kidneys were performed, the left kidney was studied. Then the access site was selected and prepped and draped in the usual sterile fashion. The skin and deep soft tissues were anesthetized and under CT guidance a 17 gauge coaxial needle was advanced just within the left kidney inferior pole margin. After satisfactory positioning was confirmed, the inner stylet was removed and five 18 gauge core biopsy specimens were obtained and placed in a vial of sterile saline. The on-site division toll wire chief deemed the samples to be adequate. All specimen samples were given to the division toll wire chief. Gel-Foam was injected through the cannula into the site renal biopsy. The cannula was then removed, hemostasis was achieved and the site was dressed. The patient tolerated the procedure well. 2. Right tunneled dialysis catheter placement. Ultrasound was used to evaluate the right internal jugular vein. The neck and chest were prepped and draped in the usual sterile fashion. Using real-time ultrasound guidance, the internal jugular vein was punctured utilizing a micropuncture needle. Ultrasound images demonstrated the micropuncture needle tip in the internal jugular vein. Digital ultrasound images were acquired and digitally archived. A 2nd incision was then made in the upper chest. A subcutaneous tunnel was created from the incision site in the chest directed to the internal jugular access above the clavicle. A 14.5 Fr 23 cm cuffed dual lumen hemodialysis catheter was placed in the internal jugular access through the tunnel under fluoroscopic guidance. Fluoroscopic images were digitally archived. The catheter was secured and an occlusive dressing was applied. The procedure was performed under the personal supervision of Dr. Cheek who was present for the entire procedure. FINDINGS: 1. Limited CT scan images for the purposes random renal biopsy. Further imaging shows the coaxial needle is seen within the margin of the left inferior pole with more than adequate distance for the biopsy throws. No immediate complication on post biopsy imaging. 2. Ultrasound shows a compressible and anechoic right internal jugular vein. The catheter tip is in the right mid to lower atrium. Procedure Note Joaquin Cheek MD - 05/17/2024 PROCEDURE: 1. CT-guided percutaneous random renal biopsy. 2. Tunneled dialysiscatheter placement. INDICATION: Rapidly worsening renal function. ATTENDING (OPERATING PHYSICIAN): Dr. Joaquin Cheek SCRUBBED RESIDENT (OPERATING PHYSICIAN): Dr. Lalo Clements SUPPORTING PROVIDER (SUPERVISOR BAKING): Bladimir MARR CONSENT: After a detailed discussion of the procedure, risks, benefits andalternative treatment options, informed consent was obtained. TIME OUT: A time out procedure was performed. The patient's identificationwas verified. Informed consent with agreement of procedure, site andposition was obtained. All necessary equipment was available prior toprocedure. CONTRAST: No contrast administered. COMPLICATIONS: None. ANESTHESIA: 30 mL 1% lidocaine subcutaneous. 3 mg Versed IV 100 mcgfentanyl IV SEDATION TIME: Start to end: 8:33 to 10:39 am. Qualified nurse sedationobserver Ramo Amin RN. MEDICATIONS: See [facility] PROCEDURE DESCRIPTION: 1. CT guided random renal biopsy. After survey CT images of the bilateral kidneys were performed, the leftkidney was studied. Then the access site was selected and prepped anddraped in the usual sterile fashion. The skin and deep soft tissues wereanesthetized and under CT guidance a 17 gauge coaxial needle was advancedjust within the left kidney inferior pole margin. After satisfactorypositioning was confirmed, the inner stylet was removed and five 18 gaugecore biopsy specimens were obtained and placed in a vial of sterilesaline. The on-site division toll wire chief deemed the samples to be adequate. Allspecimen samples were given to the division toll wire chief. Gel-Foam was injectedthrough the cannula into the site renal biopsy. The cannula was thenremoved, hemostasis was achieved and the site was dressed. The patienttolerated the procedure well. 2. Right tunneled dialysis catheter placement. Ultrasound was used to evaluate the right internal jugular vein. The neckand chest were prepped and draped in the usual sterile fashion. Usingreal-time ultrasound guidance, the internal jugular vein was puncturedutilizing a micropuncture needle. Ultrasound images demonstrated themicropuncture needle tip in the internal jugular vein. Digital ultrasoundimages were acquired and digitally archived. A 2nd incision was then madein the upper chest. A subcutaneous tunnel was created from the incisionsite in the chest directed to the internal jugular access above theclavicle. A 14.5 Fr 23 cm cuffed dual lumen hemodialysis catheter wasplaced in the internal jugular access through the tunnel underfluoroscopic guidance. Fluoroscopic images were digitally archived. Thecatheter was secured and an occlusive dressing was applied. The procedure was performed under the personal supervision of Dr. Lemus was present for the entire procedure. FINDINGS: 1. Limited CT scan images for the purposes random renal biopsy. Furtherimaging shows the coaxial needle is seen within the margin of the leftinferior pole with more than adequate distance for the biopsy throws. Noimmediate complication on post biopsy imaging. 2. Ultrasound shows a compressible and anechoic right internal jugularvein. The catheter tip is in the right mid to lower atrium. IMPRESSION IMPRESSION: 1. Successful CT-guided percutaneous left kidney random renal biopsybiopsy. 2. Successful placement of a tunneled hemodialysis catheter. PLAN: Ordering clinician to follow-up results with patient. I have personally reviewed this examination and agree with the resident/fellow physician's interpretation. Alesha Conley PA-C RAD SPECIAL P ROCEDURES * Central Line (05/17/2024 10:27 AM EDT) Joaquin Marques MD - 05/17/2024 10:27 AM EDT Michael Wagoner RN 05/17/2024 10:28 AM Central Line General Information and Staff: Performed by: Lalo Clements DO Supervised by: Joaquin Cheek MD Procedure Date/Time: 05/17/2024 10:27 AM Patient Location: IR Indication: Dialysis Patient identity confirmed: Verbally with patient and arm band (see official TimeOut for additional information) Time out: Immediately prior to the procedure a time out was completed Anticoagulation/Anti-platelet therapy: No Procedure Detail: Sterility Preparation: mask worn, sterile gloves worn, cap worn, sterile sheet used, sterile gown worn and full body drape Provider Hand Hygiene: antimicrobial soap and water Placement conditions: Elective Patient Position: Supine Prep: Chlorhexidine Local Anesthetic Used: Yes Catheter Type: Hemodialysis Tunneled Site: Chest Vessel: Internal jugular Procedure Laterality: Right Tunneled: Yes Other: 23 cm tip to cuff Catheter size: 14.5 Fr Catheter Internal Length (cm): 23 Lot Number: [id number] Number of Lumens: Double lumen Oximetric Catheter?: No Number of Needle Passes: 1 Placement: target vein identified, needle advanced into vein and blood aspirated and guidewire advanced into vein Radiologic Support with Sterile Technique: surface landmarks Identified, ultrasound guidance used and live fluoroscopy Sterile gel and probe cover used for ultrasound?: Yes Intravenous Verification: live fluoroscopy Outcomes/Complications: patient tolerated procedure well with no complications Estimated blood loss (mL): Minimal PA Catheter Placed?: No Post Insertion: Post Insertion Details: all ports aspirated, all ports flushed easily, guidewire was removed, examined and appears intact, line was sutured in place and dressing was applied Site cleansed: Chlorhexidine Line secured with: Monafilament Suture Dressing applied: Gel Chlorhexidine Gluconate, Transparent, Occlusive and Hemostatic Agent Tip Confirmation: Radiologic Tip Location: Line Ok to use and Other Location Other: RA Joaquin Cheek MD ANESTHESIA documented in this encounter Visit Diagnoses Diagnosis Acute renal failure, unspecified acute renal failure type (HCC) documented in this encounter Administered Medications Inactive Administered Medications - up to 3 most recent administrations Medication Order MAR Action Action Date Dose Rate Site Atropine sulfate inj ONCE PRN INTRA PROCEDURE, Starting on Heather 05/17/24 at 0927, Until Heather 05/17/24 at 0927, Intra-Op Given 05/17/2024 9:27 AM EDT 0.5 mg buffered lidocaine 1 % inj Intradermal, ONCE PRN INTRA PROCEDURE, Starting on Heather 05/17/24 at 0847, Until Heather 05/17/24 at 0847, Intra-Op Given 05/17/2024 8:47 AM EDT 20 mL buffered lidocaine 1 % inj Intradermal, ONCE PRN INTRA PROCEDURE, Starting on Heather 05/17/24 at 1012, Until Heather 05/17/24 at 1012, Intra-Op Given 05/17/2024 10:12 AM EDT 10 mL Other-Specify fentaNYL (PF) inj ONCE PRN INTRA PROCEDURE, Starting on Heather 05/17/24 at 0833, Until Heather 05/17/24 at 0850, Intra-Op Given 05/17/2024 8:50 AM EDT 50 mcg Given 05/17/2024 8:33 AM EDT 50 mcg hydrALAZINE (Apresoline) inj ONCE PRN INTRA PROCEDURE, Starting on Heather 05/17/24 at 0838, Until Heather 05/17/24 at 0854, Intra-Op Given 05/17/2024 8:54 AM EDT 5 mg Given 05/17/2024 8:38 AM EDT 10 mg Metoprolol Tartrate (Lopressor) inj 5 mg 5 mg, IV Push, ONCE, On Heather 05/17/24 at 0845, For 1 dose, Pre-Op Given 05/17/2024 8:13 AM EDT 5 mg Metoprolol Tartrate (Lopressor) inj ONCE PRN INTRA PROCEDURE, Starting on Heather 05/17/24 at 0904, Until Heather 05/17/24 at 0904, Intra-Op Given 05/17/2024 9:04 AM EDT 5 mg midazolam (Versed) 2 MG/2ML inj ONCE PRN INTRA PROCEDURE, Starting on Heather 05/17/24 at 0833, Until Heather 05/17/24 at 0850, Intra-Op Given 05/17/2024 8:50 AM EDT 1 mg Given 05/17/2024 8:33 AM EDT 2 mg sodium citrate 4% (Anticoagulant Sodium Citrate) inj IV Lock, ONCE PRN INTRA PROCEDURE, Starting on Heather 05/17/24 at 1027, Until Heather 05/17/24 at 1027, Intra-Op Given 05/17/2024 10:27 AM EDT 3.2 mL documented in this encounter Active and Recently Administered Medications Times are shown in EDT. Scheduled Medication Order 05/15/2024 05/16/2024 05/17/2024 Metoprolol Tartrate (Lopressor) inj 5 mg (COMPLETED) 5 mg, IV Push, ONCE, On Heather 05/17/24 at 0845, For 1 dose, Pre-Op 0813 (Given - Provid er: Michael Wagoner RN) PRN Medication Order 05/15/2024 05/16/2024 05/17/2024 Atropine sulfate inj (COMPLETED) ONCE PRN INTRA PROCEDURE, Starting on Heather 05/17/24 at 0927, Until Heather 05/17/24 at 0927, Intra-Op 0927 (Given - Provid er: Carito Hernandez RN) buffered lidocaine 1 % inj (COMPLETED) Intradermal, ONCE PRN INTRA PROCEDURE, Starting on Heather 05/17/24 at 0847, Until Heather 05/17/24 at 0847, Intra-Op 0847 (Given - Provid er: Carito Hernandez RN) buffered lidocaine 1 % inj (COMPLETED) Intradermal, ONCE PRN INTRA PROCEDURE, Starting on Heather 05/17/24 at 1012, Until Heather 05/17/24 at 1012, Intra-Op 1012 (Given - Provid er: Lalo Clements, - Comment: split between right neck and right chest) fentaNYL (PF) inj (COMPLETED) ONCE PRN INTRA PROCEDURE, Starting on Heather 05/17/24 at 0833, Until Heather 05/17/24 at 0850, Intra-Op 0833 (Given - Provid er: Carito Hernandez RN)0850 (Given - Provider: Carito Hernandez RN) hydrALAZINE (Apresoline) inj (COMPLETED) ONCE PRN INTRA PROCEDURE, Starting on Heather 05/17/24 at 0838, Until Heather 05/17/24 at 0854, Intra-Op 0838 (Given - Provid er: Carito Hernandez RN)0854 (Given - Provider: Carito Hernandez, [place]) Metoprolol Tartrate (Lopressor) inj (COMPLETED) ONCE PRN INTRA PROCEDURE, Starting on Heather 05/17/24 at 0904, Until Heather 05/17/24 at 0904, Intra-Op 0904 (Given - Provid er: Carito Hernandez RN) midazolam (Versed) 2 MG/2ML inj (COMPLETED) ONCE PRN INTRA PROCEDURE, Starting on Heather 05/17/24 at 0833, Until Heather 05/17/24 at 0850, Intra-Op 0833 (Given - Provid er: Carito Hernandez RN)0850 (Given - Provider: Carito Hernandez RN) sodium citrate 4% (Anticoagulant Sodium Citrate) inj (COMPLETED) IV Lock, ONCE PRN INTRA PROCEDURE, Starting on Heather 05/17/24 at 1027, Until Heather 05/17/24 at 1027, Intra-Op 1027 (Given - Provid er: Lalo Clements DO) documented in this encounter Care Teams Service Assistant Relationship Specialty Start Date End Date Sonya Dacosta MD [address] [place] [address] PCP - General Family Medicine 04/27/24 documented as of this encounter"
--- OUTSIDE RECORDS SUMMARY | 2024-07-09 07:12 | External Medical Summary | Summary of Care ---
Author Name Unknown Organization [facility] Address [address] [place] [address] Phone [phone] Care Team Providers Care Production Specialist Name Role Phone Sonya Dacosta MD Primary Care Provider [phone] Reason for Visit * Reason Comments Outpatient Testing Encounter Details Date Type Department Care Team (Late st Contact Info) Description 05/16/2024 8:30 AM EDT Laboratory Laboratory [facility] [address] [place] [address] [place], [address] [place] [address] Encounter for general adult medical examination w/o abnormal findings; Acute renal failure, unspecified acute renal failure type (HCC); Chronic kidney disease with symptom management only, stage 4 (severe) ([facility]) Allergies Active Allergy Reactions Criticality Noted Date Comments Amoxicillin Hives 02/07/2014 Nsaids Edema face/lips/tongue High 02/07/2014 Penicillins Hives 02/07/2014 documented as of this encounter (statuses as of 05/16/2024) Medications Medication Sig Dispensed Refills Start Date [...] as of this encounter (statuses as of 05/16/2024) Active Problems Problem Noted Date Diagnosed Date HTN, goal below 140/90 04/20/2024 Chronic kidney disease with symptom management only, stage 4 (severe) 04/20/2024 Acquired hypothyroidism 04/20/2024 Rib pain on right side 03/27/2024 Costochondritis 03/27/2024 documented as of this encounter (statuses as of 05/16/2024) Social History Tobacco Use Types Packs/Day Years [...] Upcoming Encounters Date Type Department Care Team (Latest Contact Info) Description 05/16/2024 9:00 AM EDT Imaging Radiology [facility] [address] [place] [address] Chronic kidney disease with symptom management only, stage 4 (severe) (HCC) 05/17/2024 8:00 AM EDT Hospital Encounter Interventional Radiology [facility], [address] [facility] [address] 06/08/2024 7:40 AM EDT Office Visit Family Practice [facility] [address] [place] [address] Sonya Dacosta MD [address] [place] [address] 06/28/2024 8:30 AM EDT Imaging Cardiac Studies, [facility] [address] [place] [address] 08/09/2024 10:30 AM EST Office Visit Cardiology, [facility] [address] [place] [address] Palak Meier CRNP [address] [facility] [place] [address] Pending Results Name Type Priority Associated Diagnoses Date /Time PT INR Lab STAT Encounter for general adult medical examination w/o abnormal findings 05/16/2024 8:39 AM EDT BASIC METABOLIC PANEL Lab Routine Acute renal failure, unspecified acute renal failure type (HCC) 05/16/2024 8:39 AM EDT HEPATITIS B SURFACE ANTIGEN Lab Routine Chronic kidney disease with symptom management only, stage 4 (severe) (HCC) 05/16/2024 8:39 AM EDT HEPATITIS B SURFACE ANTIBODY Lab Routine Chronic kidney disease with symptom management only, stage 4 (severe) (HCC) 05/16/2024 8:39 AM EDT HEPATITIS B CORE ANTIBODY IGM Lab Routine Chronic kidney disease with symptom management only, stage 4 (severe) (HCC) 05/16/2024 8:39 AM EDT HEPATITIS B CORE ANTIBODIES IGG AND IGM Lab Routine Chronic kidney disease with symptom management only, stage 4 (severe) (HCC) 05/16/2024 8:39 AM EDT HEPATITIS C ANTIBODY SCREEN WITH PROGRESSION TO HEPATITIS C RNA QUANTITATIVE Lab Routine Chronic kidney disease with symptom management only, stage 4 (severe) (HCC) 05/16/2024 8:39 AM EDT HEPATITIS C ANTIBODY Lab Routine Chronic kidney disease with symptom management only, stage 4 (severe) (HCC) 05/16/2024 8:39 AM EDT HEPATITIS C RNA ADD ON Lab Routine Chronic kidney disease with symptom management only, stage 4 (severe) (HCC) 05/16/2024 8:39 AM EDT Health Maintenance Due Date Last [...] 04/20, 04/20/2024, Additional history exists Diabetes Screening 05/08/2027 05/08/2024, [...] Priority Date/Time Associated Diagnosis Comments CBC STAT 05/16/2024 8:39 AM EDT Encounter for general adult medical examination w/o abnormal findings documented in this encounter Results * (ABNORMAL) CBC (05/16/2024 8:39 AM EDT) WBC 5.81 4.00 - 10.80 K/uL 05/16/2024 8:49 AM EDT [facility] 56-02 RBC 4.02 4.50 - 5.25 M/uL 05/16/2024 8:49 AM EDT [address] HGB 12.2(L) 14.0 - 16.8 g/dL 05/16/2024 8:49 AM EDT [place] [address] HCT 37.8(L) 40.0 - 48.4 % 05/16/2024 8:49 AM EDT [address] MCV 94.0 82.0 - 99.5 fL 05/16/2024 8:49 AM EDT [address] MCH 30.3 27.0 - 34.0 pg 05/16/2024 8:49 AM EDT [address] MCHC 32.3 32.0 - 36.0 g/dL 05/16/2024 8:49 AM EDT [address] RDW 15.5 11.5 - 15.5 % 05/16/2024 8:[address] EDT [address] PLT 207 140 - 400 K/uL 05/16/2024 8:49 AM T [address] MPV 9.5 6.6 - 11.1 fL 05/16/2024 8:49 AM T [place] [address] Blood Venous blood specimen / Unknown Venipuncture / Unknown 05/16/2024 8:39 AM EDT 05/16/2024 8:39 AM EDT Cooper Lea MD LAB BLOOD ORDERABL ES [facility] [address] [facility] [place] [id number] documented in this encounter Visit Diagnoses Diagnosis Encounter for general adult medical examination w/o abnormal findings Unspecified general medical examination Acute renal failure, unspecified acute renal failure type (HCC) Chronic kidney disease with symptom management only, stage 4 (severe) (HCC) Chronic kidney disease with symptom management only, stage 4 (severe) (HCC) documented in this encounter Care Teams Production Specialist Relationship Specialty Start Date End Date [facility] [address] [facility] [address] PCP - General Family Medicine 04/27/24 documented as of this encounter
--- OUTSIDE RECORDS SUMMARY | 2024-07-09 07:12 | External Medical Summary ---
Author Name Unknown Address Unknown Organization [id number]:[facility] [place] [facility] [address] [facility] [facility] [address] [place] [address] Laboratory Report Ordering Provider Test Date Status PHYLICIAXAVICYRUS 05/16/2024 08:39:12 Final Observation Date Value Abnormality Reference (Units ) Status Hepatitis B virus core Ab [Presence] in Serum 05/16/2024 08:39:12 Negative Negative Final Performing Location [facility] [place] [address] [place] [address]
--- OUTSIDE RECORDS SUMMARY | 2024-07-09 07:12 | External Medical Summary | Summary of Care ---
Author Name Unknown Organization [facility] Address [address] [place] [address] Phone [phone] Care Team Providers Care Engineer Sergeant Name Role Phone Sonya Dacosta MD Primary Care Provider [phone] Reason for Visit * Reason Onset Date Comments Follow Up 05/09/2024 Encounter Details Date Type Department Care Team (Late st Contact Info) Description 05/09/2024 Telephone Nephrology, [address] [address] Ellyn Rose MD [address] [place] [id number] Follow Up Allergies Active Allergy Reactions [...] Telephone Encounter - Aaliyah Palomares RN - 05/10/2024 10:07 AM EDT Te with pt regarding upcoming procedures and discussed choice for dialysis center. He feels that [place] would be most convenient for him. CKD fast food services manager will reach out to him . Will also send messageto [facility] scheduling regarding biopsy and TDC insertion. Pt expresses that he is anxious to get everything done so that he can start feeling better. * Telephone Encounter - Aaliyah Palomares RN [...] EDT Office Visit Family Practice [facility] [place] [address] [place] [address] Sonya Dacosta MD [address] [facility] [place] [address] 06/28/2024 8:30 AM EDT Imaging Cardiac Studies, [facility] [address] [place] [address] 08/09/2024 10:30 AM EST Office Visit Cardiology, [facility] [address] [place] [address] Palak Meier CRNP [address] [place] [address] Health Maintenance Due Date Last Done Comments [...] filedocumented as of this encounter Care Teams Engineer Sergeant Relationship Specialty Start Date End Date Sonya Dacosta MD [address] [place] [address] PCP - General Family Medicine 04/27/24 documented as of this encounter
--- OUTSIDE RECORDS SUMMARY | 2024-07-09 07:12 | External Medical Summary ---
Author Name Unknown Address Unknown Organization [id number]:[facility] [address] Laboratory Report Ordering Provider Test Date Status RYLAN GIORDANO 05/16/2024 08:39:12 Final Warfarin Therapy
INR: 2 .0-3.0 conventional anticoagulation
INR: 2.5- 3.5 high intensity anticoagulation Observation Date Value Abnormality Reference (Units ) Status PT 05/16/2024 08:39:12 16.0 Above high normal 11 .6-15.2 (seconds) Final INR 05/16/2024 08:39:12 1.3 Above high normal 0. 8-1.2 Final Performing Location [facility] [place] [address]
--- OUTSIDE RECORDS SUMMARY | 2024-07-09 07:12 | External Medical Summary | Summary of Care ---
Author Name Unknown Organization [facility] Address [address] [place] [address] Phone [phone] Care Team Providers Care Fuel Quality Tech Name Role Phone Sonya Dacosta MD Primary Care Provider [phone] Reason for Visit * Reason Onset Date Comments Follow Up 05/09/2024 Encounter Details Date Type Department Care Team (Late st Contact Info) Description 05/09/2024 Telephone Nephrology, [address] [address] Ellyn Rose MD [address] [place] [address] Follow Up Allergies Active Allergy Reactions Criticality Noted Date Comments Amoxicillin Hives 02/07/2014 Nsaids Edema face/lips/tongue High 02/07/2014 Penicillins Hives 02/07/2014 documented as of this encounter (statuses as of 05/09/2024) Medications Medication Sig Dispensed Refills Start Date [...] as of this encounter (statuses as of 05/09/2024) Active Problems Problem Noted Date Diagnosed Date HTN, goal below 140/90 04/20/2024 Chronic kidney disease with symptom management only, stage 4 (severe) 04/20/2024 Acquired hypothyroidism 04/20/2024 Rib pain on right side 03/27/2024 Costochondritis 03/27/2024 documented as of this encounter (statuses as of 05/09/2024) Social History Tobacco Use Types Packs/Day Years [...] EDT Office Visit Family Practice [facility] [place] [address] [place] [address] Sonya Dacosta MD [address] [place] [address] 06/28/2024 8:30 AM EDT Imaging Cardiac Studies, [facility] [address] [place] [address] 08/09/2024 10:30 AM EST [facility] [address] [facility] [place] [address] Palak Meier CRNP 132 [facility] [place] [address] Health Maintenance Due Date Last Done Comments [...] filedocumented as of this encounter Care Teams Fuel Quality Tech Relationship Specialty Start Date End Date Sonya Dacosta MD 200 [facility] [place] [address] PCP - General Family Medicine 04/27/24 documented as of this encounter
--- OUTSIDE RECORDS SUMMARY | 2024-07-09 07:12 | External Medical Summary | Summary of Care ---
Author Name Unknown Organization [facility] Address [address] [place] [address] Phone [phone] Care Team Providers Care Tipping Machine Operator Name Role Phone Sonya Dacosta MD Primary Care Provider [phone] Reason for Visit * Reason Comments NEW PATIENT Hospital follow up * Evaluate & Treat - Unlimited Visits (Within 3 days (urgent)) - Authorized Specialty Diagnoses / Procedures Referred By Contac t Referred To Contact Cardiovascular Medicine / Cardiology Diagnoses Congestive heart failure, unspecified HF chronicity, unspecified heart failure type (HCC) Generalized edema Sonya Dacosta MD [address] [place] [address] Referral ID Status Reason Start Date Expiration Date Visits Requested Visits Authorized [id number] Authorized Specialty Services Required 04/27/[phone] Encounter Details Date Type Department Care Team (Late st Contact Info) Description 05/09/2024 11:30 AM EDT Office Visit Card[facility], [facility] [address] [facility] CR[facility] [address] Hypertensive urgency*; HTN, goal below 140/90; LVH (left ventricular hypertrophy); Chronic kidney disease with symptom management only, stage 4 (severe) (HCC) Allergies Active Allergy Reactions Criticality Noted [...] 5 04/11/2024 Active Vitamin D3 50 MCG (2000 UT) [...] Sign Reading Time Taken Comments Blood Pressure 184/98 05/09/2024 11:06 AM EDT Pulse 80 05/09/2024 11:06 AM EDT Temperature - - Respiratory Rate 16 05/09/2024 11:0 6 AM EDT Oxygen Saturation - - Inhaled Oxygen Concentration - - Weight 104.5 kg (230 lb 6.4 oz) 024 11:06 AM EDT Height - - Body Mass Index 29.58 03/27/2024 8:15 AM EDT documented in this encounter Progress Notes * Palak Meier CRNP - 05/09/2024 11:30 AM EDT [facility], [facility] New Cardiology Patient 05/09/2024 CC: Leg swelling, dyspnea History of Present Illness: Fly De Luna is a 53 year old year old male presents to [facility] care after a recent hospital stay at [facility] March 2024 Cardiology did not follow up patient during that hospital stay, but did have an echocardiogram revealing moderate concentric left ventricular hypertrophy, LVEF in the range of 65 to 70%, with grade 2 diastolic dysfunction and evidence of elevated left-sided filling pressure byDoppler criteria per the report, no significant valvular disease. EKG performed 03/29/2024 at [place] , sinus rhythm at 93 beats per minute, left atrial enlargement. His reason for hospitalization appears to include hypertensive urgency and an VENKAT. He is following closely with nephrology with ongoing titration of antihypertensives. Patient presents today feeling well overall. Denies any shortness of breath or leg swelling. He reports that he is still making urine. Denies any chest pain, but feels what he would describe as a deep bruise with coughing. Renal function continues to worsen and he is following with nephrology. Scheduled to see him today. BP Well above target today. He is currently taking coreg, amlodipine and furosemide. Family history: Grandfather: prior history of valvular heart disease. No other cardiac disease. Social history: No ETOH use No Tobacco use No Illicit drug use Eats a low sodium diet REVIEW OF SYSTEMS: See HPI for pertinent positives. All others negative other than those noted in the HPI. CONSTITUTIONAL: No change in weight, No weakness, No fatigue and No fevers, No sweats or chills. PULMONARY: No cough, sputum, or hemoptysis, No wheezing, No shortness or breath and No recent change in breathing. CARDIOVASCULAR: No chest pain, No dyspnea on exertion, No edema, No palpitations and No syncope. GASTROINTESTINAL: No abdominal pain, No change in bowel habits, No significant heartburn, No nausea, No vomiting, No diarrhea, No constipation, No blood in stools or black tarry stools. No dysphagia. HEMATOLOGIC: No abnormal bleeding and No bruising. NEUROLOGICAL: Normal balance, No headaches and No weakness. Past Medical History: Patient Active Problem List Diagnosis Rib pain on right side Costochondritis HTN, goal below 140/90 Chronic kidney disease with symptom management only, stage 4 (severe) (HCC) Acquired hypothyroidism Past Surgical History: Procedure Laterality Date UMBIL HERNIA REPAIR (REDUCIBLE) AGE 5+YR Family History: No family history on file. Social History: Social History Socioeconomic History Marital status: Spouse [...] Stability Do you currently live in a longterm or have no steady place to sleep [...] - for ages0-17 years): Not on file Allergies: Nsaids, Amoxicillin, and Penicillins Medications: Current Outpatient Medications Medication Sig Dispense Refill [...] No current facility-administered medications for this visit. PHYSICAL EXAMINATION: BP 184/98 (BP Site: Left Arm, BP Position: Sitting) | Pulse 80 | Resp 16 | Wt 104.5 kg (230 lb 6.4 oz) | BMI 29.58 kg/m | BSA 2.34 m General: No acute distress. A+Ox3. HEENT: Normocephalic. Atraumatic. PERRL. EOMI. Conjunctiva and sclera clear. NECK: No carotid bruits. No JVD. Carotid upstrokes are brisk. Heart: RRR. S1 and S2 noted. No murmur. No rubs or gallops. PMI non displaced. Lungs: Clear to auscultation. No wheezes.No rhonchi. No rales. Abdomen: Normal bowel sounds. Soft. Nontender. No masses or organomegaly. No abdominal bruits. Extremities: No edema. No clubbing or cyanosis. Pulses: radial=2/4, posterior tibial=2/4, dorsalis pedis = 2/4. NEURO: No focal deficits. PSYCH: Appropriate affect and insight. DATA Labs & Imaging Reviewed Below: Echocardiogram 03/2024 echocardiogram revealing moderate concentric left ventricular hypertrophy, LVEF in the range of 65 to 70%, with grade 2 diastolic dysfunction and evidence of elevated left-sided filling pressure by Doppler criteria per the report, no significant valvular disease. IMPRESSION: 53 year old year old male Hypertensive urgency Moderate concentric LVH HTN CKD RECOMMENDATIONS/PLAN: Hypertensive urgency (Primary) HTN, goal below 140/90 LVH (left ventricular hypertrophy) -patient presents today feeling "well" from a cardiac perspective, euvolemic on exam; however, renal function continues to decline. -Recent echo does demonstrate moderate LVH which leads me to believe he has had long standing HTN for quite some time, but not to this severity. -Recent hospitalization shows sudden decline in renal function, and yesterday's labs show continueddecline. -He is scheduled to see nephrology today to further discuss his decline in kidney function with plans for an ultrasound today, likely additional work up for pathological causes as well as possible discussion of HD treatments would be needed. -At this present time, I wish to continues his current medication regimen; until seen by nephrologytoday. Consideration for medication titration vs adding hydralazine if nephrology feels appropriate. -Reviewed echo in detail with patient explaining that other then evidence of long standing elevatedblood pressure, he has a structurally normal heart and LVEF. Will need repeat echo at one year interval sooner if needed pending symptoms. Chronic kidney disease with symptom management only, stage 4 (severe) (HCC) -following closely with nephrology, will appreciate and await their plan of care after today's appointment and ultrasound results. -Will work closely with nephrology for medication adjustments and treatment plan. Follow Up: Return in about 3 months (around 08/09/2024). Disposition: Follow up 3 months The patient agrees to the above plan and will call with additional questions or concerns. All questions were answered to the patients satisfaction. ER with all emergencies advised. ANDIE Birch Cardiology, [address] [place] [address] I spent a total of 50 minutes on the date of service in preparation, delivery, and documentation ofthe care provided to Fly De Luna excluding any time spent in the performance of separately billed services. This chart was completed in part utilizing [employer] Speech Voice Recognition Software. Grammatical errors, random word insertions, prounoun errors, and incomplete sentences are an occasional consequence of this system due to software limitations, ambient noise, and hardware issues. Any formal questions or concerns about the content, text, or information contained within the body of this dictation should be directly addressed to the provider for clarification. documented in this encounter Nursing Notes * Natalee Pham CMA - 05/09/2024 11:04 AM EDT Chief Complaint Patient presents with NEW PATIENT Hospital follow up Examination Room: 1 Name: Fly De Luna Date of : (1970). Reason for Visit: Hospital FU, pneumonia, CHF, edema Interim Hospitalization(s): Denies Problems/Concerns: Still coughing up sputum, states is is foamy of stringy. Chest Pain/SOB: Some chest discomfort, soreness for about 2 weeks on and off [facility] Discussed: Yes [facility] is a way you can talk to your provider online through e-mail. Would you like to sign up? I can activate it for you? ALREADY ACTIVE Patient was instructed to not get up on the exam table until directed and assisted by their provider; patient is to remain seated in the chair/ wheelchair/ exam table for fall prevention and safety reasons. Patient is aware to have assistance to step down off exam table with personnel. Patient voiced full comprehension of instructions. documented in this encounter Plan of Treatment Upcoming Encounters Date Type Department Care Team (Late st Contact Info) Description 05/09/2024 1:30 PM EDT Office Visit Nephrology [address] [place] [address] Alesha Conley PA-C 200 [facility] [place] [address] 05/09/2024 3:00 PM EDT Imaging Radiology [facility] 132 [facility] [place] [address] 06/08/2024 7:40 AM EDT Office Visit Family Practice [facility] 200 [facility] [place] [address] Sonya Dacosta MD 200 [facility] [place] [address] 06/28/2024 8:30 AM EDT Imaging Cardiac Studies, [facility] 132 [facility] [place] [address] 08/09/2024 10:30 AM EST Office Visit Cardiology, [facility] 132 [facility] [place] [address] Palak Meier CRNP [address] [place] [address] Scheduled Referrals Name Type Priority Associated Diagnoses Orde r Schedule CARDIOLOGY REFERRAL OP Referral Within 3 days (urgent) Congestive heart failure, unspecified HF chronicity, unspecified heart failure type (HCC) Generalized edema Ordered: 04/27/2024 Health Maintenance Due Date Last Done Comments [...] as of this encounter Visit Diagnoses Diagnosis Hypertensive urgency- Primary Unspecified essential hypertension HTN, goal below 140/90 Unspecified essential hypertension LVH (left ventricular hypertrophy) Cardiomegaly Chronic kidney disease with symptom management only, stage 4 (severe) (HCC) documented in this encounter Care Teams Tipping Machine Operator Relationship Specialty Start Date End Date Sonya Dacsota MD [address] [place] [address] PCP - General Family Medicine 04/27/24 documented as of this encounter
--- OUTSIDE RECORDS SUMMARY | 2024-07-09 07:12 | External Medical Summary | Summary of Care ---
Author Name Unknown Organization [facility] Address [address] [place] [address] Phone [phone] Care Team Providers Care Mirror Silverer Name Role Phone Sonya Dacosta MD Primary Care Provider [phone] Encounter Details Date Type Department Care Team (Late st Contact Info) Description 05/08/2024 Telephone Nephrology, [address] [address] Ellyn Rose MD [address] [place] [address] Allergies Active Allergy Reactions Criticality Noted Date [...] before bedtime. 90 Tablet 5 05/10/2024 Active amLODIPine Besylate 10 MG Oral Tablet [...] encounter Miscellaneous Notes * Telephone Encounter - Ellyn Rose MD - 05/10/2024 11:35 AM EDT I called pt. BP still high. Increase amlodipine to 5mg bid. He will get renal biopsy first. Hold off on dialysis catheter till biopsy results. Ultrasound was normal. Dr. Rose * Telephone Encounter - Ellyn Rose MD - 05/08/2024 2:52 PM EDT Labs today showing worsening renal function. I added ANCA panel although I do not suspect GN. Will get ultrasound. He needs a renal biopsy. Alesha will discuss with him tomorrow and order if agreeable. Dr. Rose documented in this encounter Plan of Treatment Upcoming Encounters Date Type Department Care Team (Late st Contact Info) Description 06/08/2024 7:40 AM EDT Office Visit Family Practice [facility] 200 [facility] [place] [address] Sonya Dacosta MD 200 [facility] [place] [address] 06/28/2024 8:30 AM EDT Imaging Cardiac Studies, [facility] [address] [facility] [place] [address] 08/09/2024 10:30 AM EST Office Visit Cardiology, [facility] [address] [facility] [place] [address] Palak Meier CRNP [address] [facility] [place] [address] Health Maintenance Due Date Last Done Comments [...] Procedure Name Priority Date/Time Associated Diagnosis Comments PROTEIN/ CREATININE RATIO, URINE Routine 05/08/2024 8:58 AM EDT VENKAT (acute kidney injury) (HCC) documented [...] normal limits Ellyn Rose MD RAD ULTRASOUND * (ABNORMAL) PROTEIN/ CREATININE RATIO, URINE (05/08/2024 8:58 AM EDT) Protein/ Creatinine Ratio, Urine 700(H) <150 mg/g 05/09/2024 6:21 PM EDT [facility] Protein, Random Urine 119 mg/dL 05/09/2024 6:21 PM EDT [facility] Creatinine, Random Urine 170 mg/dL 05/09/2024 6:21 PM EDT [facility] Urine Non-blood Collection / Unknown 05/08/2024 8:58 AM EDT 05/08/2024 8:58 AM EDT Narrative [facility] - 05/09/2024 6:21 PM EDT Normal: <150 mg/g creatinine High: 150-500 mg/g creatinine Very High: >500 mg/g creatinine Nephrotic: >3000 mg/g creatinine Ellyn Rose MD LAB URINE ORDERABLES [facility] [address] [place] [address] documented in this encounter Visit Diagnoses Diagnosis VENKAT (acute kidney injury) (HCC)- Primary Acute kidney failure, unspecified Hypertension goal BP (blood pressure) < 140/90 Unspecified essential hypertension VENKAT (acute kidney injury) (HCC) Acute kidney failure, unspecified documented in this encounter Care Teams Mirror Silverer Relationship Specialty Start Date End Date Sonya Dacosta MD [address] [place] [address] PCP - General Family Medicine 04/27/24 documented as of this encounter
--- OUTSIDE RECORDS SUMMARY | 2024-07-09 07:12 | External Medical Summary | Summary of Care ---
Author Name Unknown Organization [facility] Address [address] [place] [address] Phone [phone] Care Team Providers Care Fish Header Name Role Phone Sonya Dacosta MD Primary Care Provider [phone] Encounter Details Date Type Department Care Team (Late st Contact Info) Description 05/10/2024 Orders Only Interventional Radiology [facility], [facility] [address] [place] [address] Carri Holland LPN Encounter for general adult medical examination w/o abnormal findings* Allergies Active Allergy Reactions Criticality Noted Date [...] 108 (90 Base) MCG/ACT Inhalation Aerosol SolutionIndications:B maureen, complicated Inhale 2 Puffs by mouth 4 [...] 05/17/2024 8:00 AM EDT Appointment Interventional Radiology [facility], [facility] 1st Floor [address] [place] [address] 06/08/2024 7:40 AM EDT Office Visit Family Practice [facility] [address] [place] [address] Sonya Dacosta MD [address] [place] [address] 06/28/2024 8:30 AM EDT Imaging Cardiac Studies, [facility] 132 [facility] [place] [address] 08/09/2024 10:30 AM EST Office Visit Cardiology, [facility] 132 [facility] [place] [address] Palak Meier CRNP [address] [place] [address] Scheduled Orders Name Type Priority Associated Diagnoses Orde r Schedule CBC Lab STAT Encounter for general adult medical examination w/o abnormal findings Expected: 05/16/2024, Expires: 06/10/2024 PT INR Lab STAT Encounter for general adult medical examination w/o abnormal findings Expected: 05/16/2024, Expires: 06/10/2024 Health Maintenance Due Date Last Done Comments [...] as of this encounter Visit Diagnoses Diagnosis Encounter for general adult medical examination w/o abnormal findings- Primary Unspecified general medical examination documented in this encounter Care Teams Fish Header Relationship Specialty Start Date End Date Sonya Dacosta MD 200 [facility] [place] [address] PCP - General Family Medicine 04/27/24 documented as of this encounter
--- OUTSIDE RECORDS SUMMARY | 2024-07-09 07:13 | External Medical Summary | Summary of Care ---
Author Name Unknown Organization [facility] Address [address] [place] [address] Phone [phone] Care Team Providers Care Patient Coordinator Name Role Phone Sonya Dacosta MD Primary Care Provider [phone] Reason for Visit * Reason Comments Outpatient Testing Encounter Details Date Type Department Care Team (Late st Contact Info) Description 05/08/2024 8:50 AM EDT Laboratory [facility] [address] [place] [address] [facility] [place] [address] [employer] Other*[id number]; Chronic kidney disease, unspecified CKD stage Allergies Active Allergy Reactions Criticality Noted Date Comments Amoxicillin Hives 02/07/2014 Nsaids Edema face/lips/tongue High 02/07/2014 Penicillins Hives 02/07/2014 documented as of this encounter (statuses as of 05/08/2024) Medications Medication Sig Dispensed Refills Start Date [...] as of this encounter (statuses as of 05/08/2024) Active Problems Problem Noted Date Diagnosed Date HTN, goal below 140/90 04/20/2024 Chronic kidney disease with symptom management only, stage 4 (severe) 04/20/2024 Acquired hypothyroidism 04/20/2024 Rib pain on right side 03/27/2024 Costochondritis 03/27/2024 documented as of this encounter (statuses as of 05/08/2024) Social History Tobacco Use Types Packs/Day Years [...] 05/09/2024 11:30 AM EDT Office Visit Cardiology, [facility] [address] [place] [address] Palak Meier CRNP [address] [place] [address] 05/09/2024 1:30 PM EDT Office Visit Nephrology [address] [place] [address] Alesha Conley PA-C [address] [place] [address] [address] 06/08/2024 7:40 AM EDT Office Visit Family Practice [facility] [address] [place] [address] [address] Sonya Dacosta MD 200 [facility] [place] [address] 06/28/2024 8:30 AM EDT Imaging Cardiac Studies, [facility] [address] [address] Pending Results Name Type Priority Associated Diagnoses Date /Time MYCODE SUBSEQUENT ADULT Lab Routine [employer] Other*[id number] 05/08/2024 8:58 AM EDT BASIC METABOLIC PANEL Lab Routine Chronic kidney disease, unspecified CKD stage 05/08/2024 8:58 AM EDT CBC WITH WBC DIFFERENTIAL Lab Routine Chronic kidney disease, unspecified CKD stage 05/08/2024 8:58 AM EDT URINALYSIS, REFLEX TO MICROSCOPIC Lab Routine Chronic kidney disease, unspecified CKD stage 05/08/2024 8:58 AM EDT MYCODE SST1 Lab Routine [employer] Other*[id number] 05/08/2024 8:58 AM EDT MYCODE SST2 Lab Routine [employer] Other*[id number] 05/08/2024 8:58 AM EDT CBC Lab Routine Chronic kidney disease, unspecified CKD stage 05/08/2024 8:58 AM EDT DIFFERENTIAL, AUTOMATED Lab Routine Chronic kidney disease, unspecified CKD stage 05/08/2024 8:58 AM EDT Health Maintenance Due Date Last [...] (FLU shot) (#1) 2024 07/04/2013, 07/24/2012 GFR 11/03/2024 05/03/2024, 08/0 05/2024, 04/25/2024, Additional history exists PTH 04/04/2025 04/04/2024 Phosphate 04/04/2025 04/04/2024 Nephrology Referral 04/06/2025 04/06/2024 Hgb 04/20/2025 04/20/2024, 03/19, 03/29/2024, Additional history exists TSH 04/20/2025 04/20/2024, 03/27/2024 Diabetes Screening 05/03/2027 05/03/2024, 0 04/27/2024, 04/25/2024, Additional history exists Lipid Panel 03/27/2029 03/27/2024 HPV (Gardasil) Vaccine Aged Out No lo nger eligible based on patient's age to complete this topic MENINGOCOCCAL (MENACTRA/MENVEO) Aged Out No longer eligible based on patient's age to complete this topic documented as of this encounter Medical Devices Not on filedocumented as of this encounter Visit Diagnoses Diagnosis [employer] Other*[id number] Chronic kidney disease, unspecified CKD stage documented in this encounter Care Teams Patient Coordinator Relationship Specialty Start Date End Date Sonya Dacosta MD [address] [place] [address] PCP - General Family Medicine 04/27/24 documented as of this encounter
--- OUTSIDE RECORDS SUMMARY | 2024-07-09 07:13 | External Medical Summary | Summary of Care ---
Author Name Unknown Organization [facility] Address [address] [place] [address] Phone [phone] Care Team Providers Care Product Development Technician Name Role Phone Sonya Dacosta MD Primary Care Provider [phone] Reason for Visit * Reason Comments Follow Up Encounter Details Date Type Department Care Team (Late st Contact Info) Description 05/04/2024 9:40 AM EDT Office Visit Family Practice [facility] [address] [place] [address] Sonya Dacosta MD [address] [place] [address] Chronic kidney disease, unspecified CKD stage*; Lower extremity edema; HTN, goal below 140/90 Allergies Active Allergy Reactions Criticality Noted Date Comments Amoxicillin Hives 02/07/2014 Nsaids Edema face/lips/tongue High 02/07/2014 Penicillins Hives 02/07/2014 documented as of this encounter (statuses as of 05/04/2024) Medications Medication Sig Dispensed Refills Start Date [...] as of this encounter (statuses as of 05/04/2024) Active Problems Problem Noted Date Diagnosed Date HTN, goal below 140/90 04/20/2024 Chronic kidney disease with symptom management only, stage 4 (severe) 04/20/2024 Acquired hypothyroidism 04/20/2024 Rib pain on right side 03/27/2024 Costochondritis 03/27/2024 documented as of this encounter (statuses as of 05/04/2024) Social History Tobacco Use Types Packs/Day Years [...] Sign Reading Time Taken Comments Blood Pressure 142/90 05/04/2024 9:30 AM EDT Pulse 77 05/04/2024 9:30 AM EDT Temperature 36.6 C (97.8 F) 05/04/2024 9:30 AM ED T Respiratory Rate - - Oxygen Saturation 98% 05/04/2024 9:30 AM EDT Inhaled Oxygen Concentration - - Weight 105 kg (231 lb 8 oz) 05/04/2024 9:30 AM E DT Height - - Body Mass Index 29.72 03/27/2024 8:15 AM EDT documented in this encounter Progress Notes * Sonya Dacosta MD - 05/04/2024 9:38 AM EDT Subjective Chief Complaint Patient presents with Follow Up HPI: Fly De Luna is a 53 year old male. Patient is unaccompanied. The following issues were addressed today: Patient states he has had a "rough couple of days." Feeling tired, low energy, joints seem to hurt all over. Yesterday had increased swelling in his legs that took a few hours to go down after taking Lasix and elevating his legs. Today looking better. Hands still feel slightly swollen and numb. Denies any shortness of breath or chest pain. Still just taking half tablet (20mg) of Lasix. He is on amlodipine 10mg and carvedilol 18.75mg BID for BP which is up a bit today. We reviewed recent labs. I discussed worsening kidney function at the time of patient's visit with his hide stretcher hand Dr. Rose. Recommended patient be seen in clinic next week with repeat labs before. Patient will also be seeing cardiology next week. Review of Systems: See HPI Objective BP 142/90 | Pulse 77 | Temp 36.6 C (97.8 F) | Wt 105 kg (231 lb 8 oz) | SpO2 98% | BMI 29.72 kg/m | BSA 2.34 m Wt Readings from Last 3 Encounters: 05/04/24 105 kg (231 lb 8 oz) 04/27/24 106.1 kg (234 lb) 04/20/24 106.4 kg (234 lb 9.6 oz) BP Readings from Last 3 Encounters: 05/04/24 142/90 04/27/24 136/88 04/20/24 174/100 General: Well-appearing, no acute distress Cardiovascular: Regular rate and rhythm, no murmur Respiratory: Good respiratory effort, breath sounds equal and clear to auscultation bilaterally Abdomen: Soft, non-distended, non-tender, normoactive bowel sounds Extremities: Mild non-pitting edema of BL LE Neurological: Alert and oriented, no focal deficits noted Psychiatric: Appropriate mood and affect Creatinine Results: Lab Results Component Value Date/Time CREATININE - [facility] 5.5 (H) 05/03/2024 08:13 AM CREATININE - [facility] 4.9 (H) 04/27/2024 09:17 AM CREATININE - [facility] 4.8 (H) 04/25/2024 08:34 AM Basic Panel Results: Results for orders placed or performed in visit on 05/03/24 BASIC METABOLIC PANEL Result Value Ref Range BUN 61 (H) 6 - 20 mg/dL Creatinine 5.5 (H) 0.6 - 1.2 mg/dL Estimated Glomerular Filtration Rate 12 (L) >=60 mL/min Sodium 138 135 - 146 mmol/L Potassium 3.8 3.5 - 5.1 mmol/L Chloride 98 98 - 107 mmol/L CO2 25 22 - 32 mmol/L Anion Gap 15 7 - 15 mmol/L Glucose 119 70 - 120 mg/dL Calcium 8.9 8.4 - 10.2 mg/dL Assessment & Plan 1. Chronic kidney disease, unspecified CKD stage Patient will follow-up with nephrology next week. No indication for admission at this time but discussed s/s that would warrant emergency evaluation over the weekend if they develop. Will repeat BMP,CBC, and UA next Tuesday. - BASIC METABOLIC PANEL; Future - CBC WITH WBC DIFFERENTIAL; Future - URINALYSIS, REFLEX TO MICROSCOPIC; Future 2. Lower extremity edema Continue Lasix 20mg daily. Remains on 1.5L fluid restriction. 3. HTN, goal below 140/90 Continue current medications. Return in about 4 weeks (around 06/01/2024). This note was electronically signed by Sonya Dacosta MD documented in this encounter Nursing Notes * Gabriela Siddiqi CMA - 05/04/2024 9:31 AM EDT Fly De Luna presents for 1 week recheck. Medications & HM reviewed. He states he is still not doing well. documented in this encounter Plan of Treatment Upcoming Encounters Date Type Department Care Team (Late st Contact Info) Description 05/09/2024 11:30 AM EDT Office Visit Cardiology, [facility] [address] [place] [address] Palak Meier CRNP [address] [place] [address] 05/09/2024 1:30 PM EDT Office Visit Nephrology [address] [place] [address] Alesha Conley PA-C [address] [facility] [place] [address] 06/08/2024 7:40 AM EDT Office Visit Family Practice [facility] [address] [facility] [place] [address] Sonya Dacosta MD [address] [facility] [place] [address] 06/28/2024 8:30 AM EDT Imaging Cardiac Studies, [facility] [address] [place] [address] Scheduled Orders Name Type Priority Associated Diagnoses Orde r Schedule BASIC METABOLIC PANEL Lab Routine Chronic kidney disease, unspecified CKD stage Expected: 05/07/2024 (Approximate), Expires: 05/04/2025 CBC WITH WBC DIFFERENTIAL Lab Routine Chronic kidney disease, unspecified CKD stage Expected: 05/07/2024 (Approximate), Expires: 05/04/2025 URINALYSIS, REFLEX TO MICROSCOPIC Lab Routine Chronic kidney disease, unspecified CKD stage Expected: 05/07/2024, Expires: 05/04/2025 Health Maintenance Due Date Last Done Comments [...] (#1) 2024 07/04/2013, 07/24/2012 GFR 11/03/2024 05/03/2024, 05/2024, 04/25/2024, Additional history exists PTH 04/04/2025 [...] this encounter Visit Diagnoses Diagnosis Chronic kidney disease, unspecified CKD stage- Primary Lower extremity edema Edema HTN, goal below 140/90 Unspecified essential hypertension documented in this encounter Care Teams Product Development Technician Relationship Specialty Start Date End Date Sonya Dacosta MD [address] [place] [address] PCP - General Family Medicine 04/27/24 documented as of this encounter
--- OUTSIDE RECORDS SUMMARY | 2024-07-09 07:13 | External Medical Summary ---
Author Name Unknown Address Unknown Organization [id number][facility] [place] [address] [place] [address] Laboratory Report Ordering Provider Test Date Status TRAVON WADE 05/08/2024 08:58:53 Final Observation Date Value Abnormality Reference (Units ) Status MYCODE SPECIMEN-SST 05/08/2024 08:58:53 Freezing of extracted DNA, whole blood and/or serum. Final Performing Location [facility] [place] [address] [facility] [address]
--- OUTSIDE RECORDS SUMMARY | 2024-07-09 07:13 | External Medical Summary | Summary of Care ---
Author Name Unknown Organization [facility] Address [address] [place] [address] Phone [phone] Care Team Providers Care Vice President Payer Name Role Phone Cinda Schneider MD Primary Care Prov ider Reason for Visit * Reason Comments Outpatient Testing Encounter Details Date Type Department Care Team (Late st Contact Info) Description 04/25/2024 8:30 AM EDT Laboratory Laboratory [facility] [place] [address] [place] [address] [place] [address] [place] [address] Chronic kidney disease with symptom management only, stage 4 (severe) (HCC); Congestive heart failure, unspecified HF chronicity, unspecified heart failure type (HCC); Labile hypertension; Numbness and tingling Allergies Active Allergy Reactions Criticality Noted Date Comments Amoxicillin Hives 02/07/2014 Nsaids Edema face/lips/tongue High 02/07/2014 Penicillins Hives 02/07/2014 documented as of this encounter (statuses as of 04/25/2024) Medications Medication Sig Dispensed Refills Start Date End Date Status Levothyroxine Sodium 200 MCG Oral Tablet (Levoxyl) Take 1 Tablet by mouth in the morning. Takes at bedtime . 12/28/2023 Active Multivitamin Adult (Minerals) Oral Tablet 1 Tablet in the morning. 03/29/2024 Active Spironolactone 25 MG Oral Tablet (Aldactone) Take 1 Tablet by mouth in the morning. 30 Tablet 5 04/11/2024 Active amLODIPine Besylate 10 MG Oral Tablet (Norvasc)Indications: Hypertension goal BP (blood pressure) < 140/90 Take 0.5 Tablets by mouth in the morning. 30 Tablet 5 04/11/2024 Active Vitamin D3 50 MCG (2000 UT) Oral Capsule Take 1 Capsule by mouth in the morning. 90 Capsule 3 04/11/2024 Active Furosemide 40 MG Oral Tablet (Lasix)Indications:Ge neralized edema,Congestive heart failure, unspecified HF chronicity, unspecified heart failure type (HCC) Take 1 Tablet by mouth in the morning. 30 Tablet 1 04/20/2024 Active Carvedilol 12.5 MG Oral Tablet (Coreg) Take 1.5 Tablets by mouth in the morning and 1.5 Tablets before bedtime. 270 Tablet 3 04/23/2024 Active Ventolin HFA 108 (90 Base) MCG/ACT Inhalation Aerosol SolutionIndications:Maryann reddy, complicated Inhale 2 Puffs by mouth 4 times a day as needed for Wheezing. 18 g 1 04/23/2024 Active documented as of this encounter (statuses as of 04/25/2024) Active Problems Problem Noted Date Diagnosed Date HTN, goal below 140/90 04/20/2024 Chronic kidney disease with symptom management only, stage 4 (severe) 04/20/2024 Acquired hypothyroidism 04/20/2024 Rib pain on right side 03/27/2024 Costochondritis 03/27/2024 documented as of this encounter (statuses as of 04/25/2024) Social History Tobacco Use Types Packs/Day Years [...] 8:20 AM EDT Office Visit Family Practice [facility] [address] [facility] [place] [address] Sonya Dacosta MD 200 [facility] [place] [address] 06/28/2024 8:30 AM EDT Imaging Cardiac Studies, [facility] [address] [employer] [place] [address] Pending Results Name Type Priority Associated Diagnoses Date /Time BASIC METABOLIC PANEL Lab Routine Chronic kidney disease with symptom management only, stage 4 (severe) (HCC) Congestive heart failure, unspecified HF chronicity, unspecified heart failure type (HCC) 04/25/2024 8:34 AM EDT ALDOSTERONE/PLASMA RENIN ACTIVITY RATIO, LC/MS/MS Lab Routine Labile hypertension 04/25/2024 8:34 AM EDT METANEPHRINES, FRACTIONATED, LC/MS/MS, 24-HOUR URINE Lab Routine Labile hypertension 04/25/2024 8:45 AM EDT MONOCLONAL GAMMOPATHIES SCREENING PANEL Lab Routine Chronic kidney disease with symptom management only, stage 4 (severe) (HCC) Numbness and tingling 04/25/2024 8:55 AM EDT SERUM PROTEIN ELECTROPHORESIS REFLEX PROFILE Lab Routine Chronic kidney disease with symptom management only, stage 4 (severe) (HCC) Numbness and tingling 04/25/2024 8:55 AM EDT SERUM FREE LIGHT CHAINS Lab Routine Chronic kidney disease with symptom management only, stage 4 (severe) (HCC) Numbness and tingling 04/25/2024 8:55 AM EDT SERUM IMMUNOFIXATION Lab Routine Chronic kidney disease with symptom management only, stage 4 (severe) (HCC) Numbness and tingling 04/25/2024 8:55 AM EDT URINE IMMUNOFIXATION, BENCE PIMENTEL PROTEIN, RANDOM URINE Lab Routine Chronic kidney disease with symptom management only, stage 4 (severe) (HCC) Numbness and tingling 04/25/2024 8:55 AM EDT Health Maintenance Due Date Last [...] (FLU shot) (#1) 2024 07/04/2013, 07/24/2012 GFR 10/21/2024 04/20/2024, 03/19, 03/29/2024, Additional history exists PTH 04/04/2025 04/04/2024 Phosphate 04/04/2025 04/04/2024 Nephrology Referral 04/06/2025 04/06/2024 Hgb 04/20/2025 04/20/2024, 03/19, 03/29/2024, Additional history exists TSH 04/20/2025 04/20/2024, 03/27/2024 Diabetes Screening 04/20/2027 04/20/2024, 0 04/04/2024, 03/29/2024, Additional history exists Lipid Panel 03/27/2029 03/27/2024 [...] symptom management only, stage 4 (severe) (HCC) Congestive heart failure, unspecified HF chronicity, unspecified heart failure type (HCC) Labile hypertension Unspecified essential hypertension Numbness and tingling Disturbance of skin sensation documented in this encounter Care Teams Vice President Payer Relationship Specialty Start Date End Date Cinda Schneider MD [address] [place] [address] [place] [address] PCP - General Family Medicine 03/27/24 documented as of this encounter
--- OUTSIDE RECORDS SUMMARY | 2024-07-09 07:13 | External Medical Summary ---
Author Name Unknown Address Unknown Organization [id number]:[facility] [address] [place] [address] Laboratory Report Ordering Provider Test Date Status SALENA BARNETT 05/08/2024 08:58:53 Final Observation Date Value Abnormality Reference (Units ) Status Color of Urine by Auto 05/08/2024 08:58:53 Yellow Light Yellow, Yellow, Dark Yellow Final Clarity, Urine 05/08/2024 08:58:53 Clear Clear Final Glucose [Mass/volume] in Urine by Automated test strip 05/08/2024 08:58:53 Negative Negative (mg/dL) Final Bilirubin.total [Presence] in Urine by Automated test strip 05/08/2024 08:58:53 Negative Negative Final Ketones [Mass/volume] in Urine by Automated test strip 05/08/2024 08:58:53 Negative Negative (mg/dL) Final Specific gravity, Urine 05/08/2024 08:58:53 1.025 1.003-1.030 Final Hemoglobin [Presence] in Urine by Automated test strip 05/08/2024 08:58:53 Moderate Abnormal Negative Final pH, Urine 05/08/2024 08:58:53 5.5 5.0-7.5 (Units) Final Protein [Mass/volume] in Urine by Automated test strip 05/08/2024 08:58:53 >=300 Abnormal Negative (mg/dL) Final Urobilinogen [Mass/volume] in Urine by Automated test strip 05/08/2024 08:58:53 0.2 0.2, 1.0 (mg/dL) Final Nitrite [Presence] in Urine by Automated test strip 05/08/2024 08:58:53 Negative Negative Final Leukocyte esterase [Presence] in Urine by Automated test strip 05/08/2024 08:58:53 Negative Negative Final Performing Location [facility] [address] [place] [address]
--- OUTSIDE RECORDS SUMMARY | 2024-07-09 07:13 | External Medical Summary | Summary of Care ---
Author Name Unknown Organization [facility] Address [address] [place] [address] Phone [phone] Care Team Providers Care Livestock Inspector Name Role Phone Sonya Dacosta MD Primary Care Provider [phone] Reason for Visit * Reason Onset Date Comments Advice 05/04/2024 Encounter Details Date Type Department Care Team (Late st Contact Info) Description 05/04/2024 Telephone Cardiology, [facility] [address] [facility] [place] [address] Palak Meier CRNP [address] [place] [address] Advice Allergies Active Allergy Reactions Criticality Noted Date [...] No 04/26/2024 Does the household have a [facility] source of income? (Household - [...] Miscellaneous Notes * Telephone Encounter - Natalee Pham CMA - 05/04/2024 1:47 PM EDT Called patient and left detailed message on machine. Cardiology appt at 11:30 and Nephology [facility] appt at 1:30. Patient should have enough time to get to Nephro appt. Marito Correa is approx. 22-25 minutes away from [facility] office. Emphasized that patient should come in no later than 11:15. [facility] prefers not to do telehealth on new patients unless absolutely necessary. * Telephone Encounter - Aziza Martinez OSA - 05/04/2024 1:37 PM EDT Patient inquiring if his appt on 05/09/24 with Cardio can be a telephone appt as he has an appt in [facility] right after. Concerned that he can not be at both appts. Informed patient that this is a NEW Cardiology appt and virtual might not be possible. Patient is a 3-day urgent general cardio referral. There are no appts to schedule for an alternative date - checked [facility] Cardio also. documented in this encounter Plan of Treatment Upcoming Encounters Date Type Department Care Team (Late st Contact Info) Description 05/09/2024 11:30 AM EDT Office Visit Cardiology, [facility] [address] [place] [address] Palak Meier CRNP [address] [place] [address] 05/09/2024 1:30 PM EDT Office Visit Nephrology [address] [place] [address] Alesha Conley PA-C 200 [facility] [place] [address] 06/08/2024 7:40 AM EDT Office Visit Family Practice [facility] [address] [facility] [place] [address] Sonya Dacosta MD 200 [facility] [place] [address] 06/28/2024 8:30 AM EDT Imaging Cardiac Studies, [facility] [address] [place] [address] Health Maintenance Due Date Last Done Comments [...] filedocumented as of this encounter Care Teams Livestock Inspector Relationship Specialty Start Date End Date Sonya Dacosta MD [address] [place] [address] PCP - General Family Medicine 04/27/24 documented as of this encounter
--- OUTSIDE RECORDS SUMMARY | 2024-07-09 07:13 | External Medical Summary ---
Author Name Unknown Address Unknown Organization K09:[facility] [place] [address] Laboratory Report Ordering Provider Test Date Status SALENA BARNETT 05/08/2024 08:58:53 Final Observation Date Value Abnormality Reference (Units ) Status RBC, Urine 05/08/2024 08:58:53 3-5 Abnormal 0-2 (/HPF) Final WBC, Urine 05/08/2024 08:58:53 6-9 Abnormal 0-2 (/HPF) Final Bacteria [#/area] in Urine sediment by Microscopy high power field 05/08/2024 08:58:53 26-50 Abnormal 0-25 (/HPF) Final Granular casts [#/area] in Urine sediment by Microscopy low power field 05/08/2024 08:58:53 5-9 Abnormal None (/LPF) Final Performing Location [facility] [address]
--- OUTSIDE RECORDS SUMMARY | 2024-07-09 07:13 | External Medical Summary ---
Author Name Unknown Address Unknown Organization K09:[facility] [place] [address] Laboratory Report Ordering Provider Test Date Status SALENA BARNETT 05/08/2024 08:58:53 Final Observation Date Value Abnormality Reference (Units ) Status BUN 05/08/2024 08:58:53 57 Above high normal 6-20 (mg/dL) Final Creatinine 05/08/2024 08:58:53 6.1 Above high normal 0.6-1.2 (mg/dL) Final Glomerular filtration rate/1.73 sq M.predicted [Volume Rate/Area] in Serum, Plasma or Blood by Creatinine-based formula (CKD-EPI) 05/08/2024 08:58:53 10 Below low normal >=60 (mL/min) Final eGFR is calculated based on the CKD-EPI 2020 equation. Sodium 05/08/2024 08:58:53 139 135-146 (m mol/L) Final Potassium 05/08/2024 08:58:53 3.7 3.5-5.1 (m mol/L) Final Cl 05/08/2024 08:58:53 98 98-107 (mm ol/L) Final CO2 05/08/2024 08:58:53 25 22-32 (mmo l/L) Final Anion gap 05/08/2024 08:58:53 16 Above high normal 7- 15 (mmol/L) Final Glucose 05/08/2024 08:58:53 115 70-120 (mg /dL) Final Calcium 05/08/2024 08:58:53 9.4 8.4-10.2 ( mg/dL) Final Performing Location [facility] [place] [address]
--- OUTSIDE RECORDS SUMMARY | 2024-07-09 07:13 | External Medical Summary | Summary of Care ---
Author Name Unknown Organization [facility] Address [address] [place] [address] Phone [phone] Care Team Providers Care Gate Services Supervisor Name Role Phone Sonya Dacosta MD Primary Care Provider [phone] Reason for Referral * Evaluate & Treat - Unlimited Visits (Within 3 days (urgent)) - Authorized Specialty Diagnoses / Procedures Referred By Contac t Referred To Contact Cardiovascular Medicine / Cardiology Diagnoses Congestive heart failure, unspecified HF chronicity, unspecified heart failure type (HCC) Generalized edema Sonya Dacosta MD [address], [place] [address] Referral ID Status Reason Start Date Expiration Date Visits Requested Visits Authorized [id number] Authorized Specialty Services Required 04/27/2024 999 999 Question Answer Referral Priority Within 3 days (urgent) Where should this appointment be scheduled? [facility] To which of the following clinics are you referring your patient? [facility] Reason for Visit * Reason Comments Re-Check Encounter Details Date Type Department Care Team (Latest Contact Info) Description 04/27/2024 8:20 AM EDT Office Visit Family Practice [facility] [address] [place] [address] Sonya Dacosta MD [address] [place] [address] [id number] Chronic kidney disease with symptom management only, stage 4 (severe) (HCC)*; Congestive heart failure, unspecified HF chronicity, unspecified heart failure type (HCC); Generalized edema; HTN, goal below 140/90; Acquired hypothyroidism Allergies Active Allergy Reactions Criticality Noted Date Comments Amoxicillin Hives 02/07/2014 Nsaids Edema face/lips/tongue High 02/07/2014 Penicillins Hives 02/07/2014 documented as of this encounter (statuses as of 04/30/2024) Medications Medication Sig Dispensed Refills Start Date [...] 04/23/2024 Active Furosemide 40 MG Oral Tablet (Lasix)Indicatio ns:Generalized edema,Congestive heart failure, unspecified HF chronicity, unspecified heart failure type (HCC) Take 0.5 Tablets by mouth in the morning. 04/27/2024 Active Spironolactone 25 MG Oral Tablet (Aldactone) Take 1 Tablet by mouth in the morning. 30 Tablet 5 04/11/2024 4 Discontinued([facility] List Clean Up) Furosemide 40 MG Oral Tablet (Lasix)Indicatio ns:Generalized edema,Congestive heart failure, unspecified HF chronicity, unspecified heart failure type (HCC) Take 1 Tablet by mouth in the morning. 30 Tablet 1 04/20/2024 4 Discontinued documented as of this encounter (statuses as of 04/30/2024) Active Problems Problem Noted Date Diagnosed Date HTN, goal below 140/90 04/20/2024 Chronic kidney disease with symptom management only, stage 4 (severe) 04/20/2024 Acquired hypothyroidism 04/20/2024 Rib pain on right side 03/27/2024 Costochondritis 03/27/2024 documented as of this encounter (statuses as of 04/30/2024) Social History Tobacco Use Types Packs/Day Years [...] Sign Reading Time Taken Comments Blood Pressure 136/88 04/27/2024 8:18 AM EDT Pulse 78 04/27/2024 8:18 AM EDT Temperature 36.8 C (98.2 F) 04/27/2024 8:18 AM ED T Respiratory Rate 18 04/27/2024 8:18 AM EDT Oxygen Saturation 96% 04/27/2024 8:18 AM EDT Inhaled Oxygen Concentration - - Weight 106.1 kg (234 lb) 04/27/2024 8:18 AM EDT Height - - Body Mass Index 30.04 03/27/2024 8:15 AM EDT documented in this encounter Progress Notes * Sonya Dacosta MD - 04/27/2024 8:28 AM EDT Subjective Chief Complaint Patient presents with Re-Check HPI: Fly De Luna is a 53 year old male. Patient is unaccompanied. The following issues were addressed today: Presents for follow-up. Patient is new to me but will be establishing care. Saw Dr. Unruly Green for the first time 03/27/24. Blood pressure was very high. Had discontinued lisinopril on his own several months earlier. Started on HCTZ and had labs drawn. 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 Initial labs came back significant for Cr 2.4, EGFR 31, TSH 18.10 but normal T4. Then had labs repeated on 03/29/24, kidney function had worsened slightly and chest x-ray that was done for history of rib fracture showed bibasilar pulmonary consolidations L>R, possibly representing multifocal PNA. CBC did not show leukocytosis, only mild anemia with Hgb 13.5. Patient c/o productive cough, night sweats, shortness of breath, edema of hands and legs, and decreased urinary output. Amlodipine was added to BP regimen, HCTZ was stopped, and he was advised to go to the hospital. He was admitted to [facility]. In the hospital chest x-ray showed pulmonary vascular congestion, bilateral patchy airspace opacities. CT chest showed multiple irregular airspace opacities that favored an atypical/viral pneumonitis and prominent lymph nodes. Recommended repeat CT in 6 months. BNP was only mildly elevated (300). Creatinine 2.7. He was treated for multifocal PNA. Discharged on Levaquin. ?VENKAT versus CKD, no prior labs available. Prior uncontrolled hypertension. On 04/06/24 after discharge he saw nephrology. Was hypotensive in the office so hydralazine was stopped. He was continued on amlodipine and Coreg. Amlodipine subsequently reduced to 5mg daily due to edema and Aldactone was added. Saw Dr. Macias in IM on 04/20/24. He was started on furosemide 40mg for continued edema. Labs rechecked. BNP >4000. Creatinine increased to 3.7. Chest x-ray was repeated and showed persistent left greater than right bibasilar pulmonary airspaceopacities with prominent cardiac silhouette and indistinct pulmonary vasculature. BMP was repeated and creatinine increased further to 4.8. His furosemide was decreased to 20mg and Aldactone was stopped. Today he reports that his swelling has overall improved but he still has some "puffiness." Has occasional tingling in his fingers. Continues to have a productive cough but overall it has improved. Feeling very fatigued. Tires quickly with any physical activity. Reviewed TTE that was done while hospitalized. Showed moderate concentric LVH, EF 65-90%, grade 2 diastolic dysfunction. No significant valvular disease. Review of Systems: See HPI Objective BP 136/88 | Pulse 78 | Temp 36.8 C (98.2 F) (Tympanic) | Resp 18 | Wt 106.1 kg (234 lb) | SpO2 96% | BMI 30.04 kg/m | BSA 2.35 m Wt Readings from Last 3 Encounters: 04/27/24 106.1 kg (234 lb) 04/20/24 106.4 kg (234 lb 9.6 oz) 04/06/24 111 kg (244 lb 11.2 oz) BP Readings from Last 3 Encounters: 04/27/24 136/88 04/20/24 174/100 04/06/24 98/60 General: Well-appearing, no acute distress Cardiovascular: Regular rate and rhythm, no murmur Respiratory: Good respiratory effort, decreased breath sounds at lung bases bilaterally Abdomen: Soft, non-distended, non-tender, normoactive bowel sounds Extremities: No edema of bilateral lower extremities, mild non-pitting edema of bilateral hands Neurological: Alert and oriented, no focal deficits noted Psychiatric: Appropriate mood and affect Assessment & Plan 1. Chronic kidney disease with symptom management only, stage 4 (severe) (HCC) Repeat BMP today. Follows with nephrology. Tests pending: urine metanephrines, aldosterone/renin ratio. - BASIC METABOLIC PANEL; Future 2. Congestive heart failure, unspecified HF chronicity, unspecified heart failure type (HCC) Continue Lasix 20mg daily. Will repeat BMP and BNP. Patient agreeable to cardiology referral. Denies prior history of HF/diastolic dysfunction. - Furosemide 40 MG Oral Tablet (Lasix); Take 0.5 Tablets by mouth in the morning. - BASIC METABOLIC PANEL; Future - BNP, NT-PRO; Future - CARDIOLOGY REFERRAL OP 3. Generalized edema Continue Lasix 20mg daily. Will repeat BMP and BNP. - Furosemide 40 MG Oral Tablet (Lasix); Take 0.5 Tablets by mouth in the morning. - BNP, NT-PRO; Future - CARDIOLOGY REFERRAL OP 4. HTN, goal below 140/90 Well-controlled. Continue amlodipine 5mg, Coreg 18.75mg BID, Lasix 20mg daily. 5. Acquired hypothyroidism Continue levothyroxine 200mcg. Spent significant time today with patient reviewing hospital records, imaging, and lab results. Recent chest x-ray image was personally reviewed and interpreted. Return in about 1 week (around 05/04/2024). This note was electronically signed by Sonya Dacosta MD I spent a total of 40-54 minutes (exact time 50 mins) on the date of service in preparation, delivery, and documentation of the care provided to Fly De Luna excluding any time spent in the performance of separately billed services or time spent by another provider/QHP. documented in this encounter Nursing Notes * Cecy Barragan LPN - 04/27/2024 8:12 AM EDT Fly De Luna presents for 1 month recheck. Medications & HM reviewed. documented in this encounter Plan of Treatment Upcoming Encounters Date Type Department Care Team (Late st Contact Info) Description 05/04/2024 9:40 AM EDT Office Visit Family Practice [facility] [address] [facility] [place] [address] Sonya Dacosta MD [address] [facility] [place] [address] 05/09/2024 11:30 AM EDT [facility] [address] [facility] [address] Palak Meier CRNP [address] [facility] [address] 06/28/2024 8:30 AM EDT Imaging Cardiac Studies, [facility] [address] [facility] [place] [address] Scheduled Referrals Name Type Priority Associated Diagnoses [...] (FLU shot) (#1) 2024 07/04/2013, 07/24/2012 GFR 10/28/2024 04/27/2024, 08/0 03/2024, 04/20/2024, Additional history exists PTH 04/04/2025 04/04/2024 Phosphate 04/04/2025 04/04/2024 Nephrology Referral 04/06/2025 04/06/2024 Hgb 04/20/2025 04/20/2024, 03/19, 03/29/2024, Additional history exists TSH 04/20/2025 04/20/2024, 03/27/2024 Diabetes Screening 04/27/2027 04/27/2024, 0 04/25/2024, 04/20/2024, Additional history exists Lipid Panel 03/27/2029 03/27/2024 HPV (Gardasil) Vaccine Aged Out No lo nger eligible based on patient's age to complete this topic MENINGOCOCCAL (MENACTRA/MENVEO) Aged Out No longer eligible based on patient's age to complete this topic documented as of this encounter Medical Devices Not on filedocumented as of this encounter Results * (ABNORMAL) BNP, NT-PRO (04/27/2024 9:17 AM EDT) BNP, NT-Pro 3,157(H) <300 pg/mL 04/27/2024 8:46 PM EDT [facility]ORY [facility] [place] Blood Venous blood specimen / Unknown Venipuncture / Unknown 04/27/2024 9:17 AM EDT 04/27/2024 9:17 AM EDT Narrative [facility]ORY [facility] [place] - 04/27/2024 8:46 PM EDT Exclude Heart Failure: <300 pg/mL Diagnose Heart Failure: Age <50 yr: >450 pg/mL 50-75 yr: >900 pg/mL >75 yr: >1800 pg/mL GFR is 30-59 mL/min: >1200 pg/mL or Age-adjusted values GFR <30 mL/min: do not use, not reliable Prognostic threshold: 1000 pg/mL Sonya Dacosta MD LAB BLOOD ORDERABLES [facility] [address] [place] [address] * (ABNORMAL) BASIC METABOLIC PANEL (04/27/2024 9:17 AM EDT) BUN 59(H) 6 - 20 mg/dL 04/27/2024 10:16 AM EDT [address] Creatinine 4.9(H) 0.6 - 1.2 mg/dL 04/27/2024 10:16 AM EDT [address] Estimated Glomerular Filtration Rate 13(L) >=60 mL/min 04/27/2024 10:16 AM EDT [place] [address]- Comment:eGFR is calculated b ased on the CKD-EPI 2020 equation. Sodium 136 135 - 146 mmol/L 04/27/2024 10:16 AM EDT [place] [address]- Potassium 4.4 3.5 - 5.1 mmol/L 04/27/2024 10:16 AM EDT [address] Chloride 95(L) 98 - 107 mmol/L 04/27/2024 10:16 AM EDT [place] [address]- CO2 27 22 - 32 mmol/L 04/27/2024 10:16 AM EDT [facility] 56- Anion Gap 14 7 - 15 mmol/L 04/27/2024 10:16 AM EDT [facility] 56- Glucose 119 70 - 120 mg/dL 04/27/2024 10:16 AM EDT [place] [address]- Calcium 9.5 8.4 - 10.2 mg/dL 04/27/2024 10:16 AM EDT [facility] 56- Blood Venous blood specimen / Unknown Venipuncture / Unknown 04/27/2024 9:17 AM EDT 04/27/2024 9:17 AM EDT Sonya Dacosta MD LAB BLOOD ORDERABLES [facility] [address] [place] [address] documented in this encounter Visit Diagnoses Diagnosis Chronic kidney disease with symptom management only, stage 4 (severe) (HCC)- Primary Congestive heart failure, unspecified HF chronicity, unspecified heart failure type (HCC) Generalized edema Edema HTN, goal below 140/90 Unspecified essential hypertension Acquired hypothyroidism Unspecified hypothyroidism documented in this encounter Care Teams Gate Services Supervisor Relationship Specialty Start Date End Date Sonya Dacosta MD [address] [place] [address] PCP - General Family Medicine 04/27/24 documented as of this encounter
--- OUTSIDE RECORDS SUMMARY | 2024-07-09 07:13 | External Medical Summary | Summary of Care ---
Author Name Unknown Organization [facility] Address [address] [place] [address] Phone [phone] Care Team Providers Care Shoulder Pad Molder Name Role Phone Sonya Dacosta MD Primary Care Provider [phone] Reason for Visit * Reason Onset Date Comments Test Results 05/04/2024 Encounter Details Date Type Department Care Team (Late st Contact Info) Description 05/04/2024 Telephone Nephrology, [facility] [address] [place] [address] Services, Scheduling [address] [place] [address] Test Results Allergies Active Allergy Reactions Criticality Noted Date [...] encounter Miscellaneous Notes * Telephone Encounter - Sonya Dacosta MD - 05/04/2024 11:44 AM EDT As an addendum-- did not recommend dialysis to patient, just mentioned it may be something discussed in the future. We reviewed his recent labs at his visit today and he was aware I talked to Dr. Rose who recommended he be seen in the office next week. I think his main question was regarding the metanephrines and cynthia/renin ratio tests, I recommended he discuss with nephro next week. He will also be seeing cardiology. Sonya Dacosta MD * Telephone Encounter - Nona Cagle OSA - 05/04/2024 11:15 AM EDT Good morning, Pt on the line requesting a call back regarding most recent lab results. Pt is very concerned and pcp wants him to start dialysis. Please contact pt to advise. Thank you! documented in this encounter Plan of Treatment Upcoming Encounters Date Type Department Care Team (Late st Contact Info) Description 05/09/2024 11:30 AM EDT Office Visit Cardiology, [facility] [address] [place] [address] Palak Meier CRNP 132 [facility] [place] [address] 05/09/2024 1:30 PM EDT Office Visit Nephrology [address] [place] [address] Alesha Conley PA-C 200 [facility] [place] [address] 06/08/2024 7:40 AM EDT Office Visit Family Practice [facility] [address] [facility] [place] [address] Sonya Dacosta MD [address] [facility] [place] [address] 06/28/2024 8:30 AM EDT Imaging Cardiac Studies, [facility] [address] [place] [address] Health Maintenance Due Date Last Done Comments [...] (#1) 2024 07/04/2013, 07/24/2012 GFR 11/03/2024 05/03/2024, 08/05/2024, 04/25/2024, Additional history exists PTH 04/04/2025 04/04/2024 [...] filedocumented as of this encounter Care Teams Shoulder Pad Molder Relationship Specialty Start Date End Date Sonya Dacosta MD [address] [place] [address] PCP - General Family Medicine 04/27/24 documented as of this encounter
--- OUTSIDE RECORDS SUMMARY | 2024-07-09 07:13 | External Medical Summary ---
Author Name Unknown Address Unknown Organization [id number]:[facility] [place] [facility] [address] [place] [address] Laboratory Report Ordering Provider Test Date Status DEBORAH SANCHEZ 05/08/2024 08:58:53 Final Normal: <150 mg/ g creatinine
High: 150-500 mg/g creatinine
Very High: >500 mg/g creatinine
Nephrotic: >3000 mg/g creatinine Observation Date Value Abnormality Reference (Units ) Status Protein/Creatinine [Ratio] in Urine 05/08/2024 08:58:53 700 Above high normal <150 (mg/g ) Final Protein, Urine 05/08/2024 08:58:53 119 (mg/dL) Final Creatinine, Urine 05/08/2024 08:58:53 170 (mg/dL) Final Performing Location [facility] [place] [address] [place] [address]
--- OUTSIDE RECORDS SUMMARY | 2024-07-09 07:13 | External Medical Summary ---
Author Name Unknown Address Unknown Organization [id number]:LABORATORY [facility] [place] - [address] [place] [address] Laboratory Report Ordering Provider Test Date Status DEBORAH SANCHEZ 05/08/2024 08:58:53 Final Observation Date Value Abnormality Reference (Units ) Status Neutrophil cytoplasmic Ab [Presence] in Serum by Immunofluorescence 05/08/2024 08:58:53 Negative Negative Final Neutrophil cytoplasmic Ab [Presence] in Serum by Immunofluorescence 05/08/2024 08:58:53 Negative Negative Final Negative for ANCA. Performing Location LABORATORY [facility] - [address] [place] [address]
--- OUTSIDE RECORDS SUMMARY | 2024-07-09 07:13 | External Medical Summary ---
Author Name Unknown Address Unknown Organization [id number]:[facility]ATORY [facility] [address] Laboratory Report Ordering Provider Test Date Status SALENA BARNETT 05/08/2024 08:58:53 Final Observation Date Value Abnormality Reference (Units ) Status WBC, Total 05/08/2024 08:58:53 8.12 4.00-10.8 0 (K/uL) Final RBC 05/08/2024 08:58:53 4.32 4.50-5.25 (M/uL) Final Hemoglobin 05/08/2024 08:58:53 13.1 Below low normal 14 .0-16.8 (g/dL) Final HCT 05/08/2024 08:58:53 40.7 40.0-48.4 (%) Final MCV 05/08/2024 08:58:53 94.2 82.0-99.5 (fL) Final MCH 05/08/2024 08:58:53 30.3 27.0-34.0 (pg) Final MCHC 05/08/2024 08:58:53 32.2 32.0-36.0 (g/dL) Final RDW 05/08/2024 08:58:53 15.3 11.5-15.5 (%) Final Platelets 05/08/2024 08:58:53 237 140-400 (K /uL) Final MPV 05/08/2024 08:58:53 9.6 6.6-11.1 ( fL) Final Performing Location [facility] [address]
--- OUTSIDE RECORDS SUMMARY | 2024-07-09 07:13 | External Medical Summary ---
Author Name Unknown Address Unknown Organization [id number]:LABORATORY [place] [address] Laboratory Report Ordering Provider Test Date Status DEBORAH SANCHEZ 05/03/2024 08:13:01 Final Observation Date Value Abnormality Reference (Units ) Status BUN 05/03/2024 08:13:01 61 Above high normal 6-20 (mg/dL) Final Creatinine 05/03/2024 08:13:01 5.5 Above high normal 0.6-1.2 (mg/dL) Final Glomerular filtration rate/1.73 sq M.predicted [Volume Rate/Area] in Serum, Plasma or Blood by Creatinine-based formula (CKD-EPI) 05/03/2024 08:13:01 12 Below low normal >=60 (mL/min) Final eGFR is calculated based on the CKD-EPI 2020 equation. Sodium 05/03/2024 08:13:01 138 135-146 (m mol/L) Final Potassium 05/03/2024 08:13:01 3.8 3.5-5.1 (m mol/L) Final Cl 05/03/2024 08:13:01 98 98-107 (mm ol/L) Final CO2 05/03/2024 08:13:01 25 22-32 (mmo l/L) Final Anion gap 05/03/2024 08:13:01 15 7-15 (mmol /L) Final Glucose 05/03/2024 08:13:01 119 70-120 (mg /dL) Final Calcium 05/03/2024 08:13:01 8.9 8.4-10.2 ( mg/dL) Final Performing Location LAB[facility]ATORY [place] [address]
--- OUTSIDE RECORDS SUMMARY | 2024-07-09 07:13 | External Medical Summary | Summary of Care ---
Author Name Unknown Organization [facility] Address [address] [place] [address] Phone [phone] Care Team Providers Care Fuel Injection Servicer Name Role Phone Sonya Dacosta MD Primary Care Provider [phone] Reason for Visit * Reason Comments Outpatient Testing Encounter Details Date Type Department Care Team (Late st Contact Info) Description 04/27/2024 9:20 AM EDT Laboratory Laboratory [facility] [address] [place] [id number] [place], [address] [place] [address] Chronic kidney disease with symptom management only, stage 4 (severe) ([facility]); Congestive heart failure, unspecified HF chronicity, unspecified heart failure type (HCC); Generalized edema Allergies Active Allergy Reactions Criticality Noted Date Comments Amoxicillin Hives 02/07/2014 Nsaids Edema face/lips/tongue High 02/07/2014 Penicillins Hives 02/07/2014 documented as of this encounter (statuses as of 04/27/2024) Medications Medication Sig Dispensed Refills Start Date [...] as of this encounter (statuses as of 04/27/2024) Active Problems Problem Noted Date Diagnosed Date HTN, goal below 140/90 04/20/2024 Chronic kidney disease with symptom management only, stage 4 (severe) 04/20/2024 Acquired hypothyroidism 04/20/2024 Rib pain on right side 03/27/2024 Costochondritis 03/27/2024 documented as of this encounter (statuses as of 04/27/2024) Social History Tobacco Use Types Packs/Day Years [...] 9:40 AM EDT [facility] [address] [place], [place] [address] Sonya Dacosta MD [address] [place] [address] 06/28/2024 8:30 AM EDT Imaging Cardiac Studies, [facility] [address] [facility] [place] [address] Pending Results Name Type Priority Associated Diagnoses Date /Time BASIC METABOLIC PANEL Lab Routine Chronic kidney disease with symptom management only, stage 4 (severe) (HCC) Congestive heart failure, unspecified HF chronicity, unspecified heart failure type (HCC) 04/27/2024 9:17 AM EDT BNP, NT-PRO Lab Routine Congestive heart failure, unspecified HF chronicity, unspecified heart failure type (HCC) Generalized edema 04/27/2024 9:17 AM EDT Health Maintenance Due Date Last [...] (FLU shot) (#1) 2024 07/04/2013, 07/24/2012 GFR 10/26/2024 04/25/2024, 08/0 10/2023, 04/04/2024, Additional history exists PTH 04/04/2025 04/04/2024 Phosphate 04/04/2025 04/04/2024 Nephrology Referral 04/06/2025 04/06/2024 Hgb 04/20/2025 04/20/2024, 03/19, 03/29/2024, Additional history exists TSH 04/20/2025 04/20/2024, 03/27/2024 Diabetes Screening 04/25/2027 04/25/2024, 0 04/20/2024, 04/04/2024, Additional history exists Lipid Panel 03/27/2029 03/27/2024 [...] heart failure type (HCC) Generalized edema Edema documented in this encounter Care Teams Fuel Injection Servicer Relationship Specialty Start Date End Date Sonya Dacosta MD [address] [place] [address] PCP - General Family Medicine 04/27/24 documented as of this encounter
--- OUTSIDE RECORDS SUMMARY | 2024-07-09 07:13 | External Medical Summary | Summary of Care ---
Author Name Unknown Organization [facility] Address [address] [place] [facility] [place] [address] Phone [phone] Care Team Providers Care Utility System Repairer Name Role Phone Sonya Dacosta MD Primary Care Provider [phone] Encounter Details Date Type Department Care Team (Late st Contact Info) Description 05/07/2024 Orders Only PATIENT PORTAL DO NOT DELETE THIS DEPT USED BY [place] [id number] Allergies Active Allergy Reactions Criticality Noted Date Comments Amoxicillin Hives 02/07/2014 Nsaids Edema face/lips/tongue High 02/07/2014 Penicillins Hives 02/07/2014 documented as of this encounter (statuses as of 05/07/2024) Medications Medication Sig Dispensed Refills Start Date [...] as of this encounter (statuses as of 05/07/2024) Active Problems Problem Noted Date Diagnosed Date HTN, goal below 140/90 04/20/2024 Chronic kidney disease with symptom management only, stage 4 (severe) 04/20/2024 Acquired hypothyroidism 04/20/2024 Rib pain on right side 03/27/2024 Costochondritis 03/27/2024 documented as of this encounter (statuses as of 05/07/2024) Social History Tobacco Use Types Packs/Day Years [...] 05/09/2024 11:30 AM EDT Office Visit Cardiology, [facility] [address] [place] [address] Palak Meier CRNP [address] [place] [address] 05/09/2024 1:30 PM EDT Office Visit Nephrology [address] [place] [address] Alesha Conley PA-C [address] [place] [address] 06/08/2024 7:40 AM EDT Office [facility] [place] [address] [place] [address] [address] Sonya Dacosta MD [facility] [place] [address] 06/28/2024 8:30 AM EDT Imaging Cardiac Studies, [facility] [address] [place] [address] Health Maintenance Due Date Last Done Comments [...] (#1) 2024 07/04/2013, 07/24/2012 GFR 11/03/2024 05/03/2024, 0805/2024, 04/25/2024, Additional history exists PTH 04/04/2025 04/04/2024 [...] filedocumented as of this encounter Care Teams Utility System Repairer Relationship Specialty Start Date End Date Sonya Dacosta MD [address] [place] [address] PCP - General Family Medicine 04/27/24 documented as of this encounter
--- OUTSIDE RECORDS SUMMARY | 2024-07-09 07:13 | External Medical Summary | Summary of Care ---
Author Name Unknown Organization [facility] Address [address] [place] [address] Phone [phone] Care Team Providers Care Help Desk Analyst Name Role Phone Sonya Dacosta MD Primary Care Provider [phone] Reason for Visit * Reason Comments Outpatient Testing Encounter Details Date Type Department Care Team (Late st Contact Info) Description 05/03/2024 8:20 AM EDT Laboratory Laboratory [facility] [address] [place] [phone] [place], Lab Scenery [address] [place] [address] Stage 3b chronic kidney disease (HCC) Allergies Active Allergy Reactions Criticality Noted Date Comments Amoxicillin Hives 02/07/2014 Nsaids Edema face/lips/tongue High 02/07/2014 Penicillins Hives 02/07/2014 documented as of this encounter (statuses as of 05/03/2024) Medications Medication Sig Dispensed Refills Start Date [...] as of this encounter (statuses as of 05/03/2024) Active Problems Problem Noted Date Diagnosed Date HTN, goal below 140/90 04/20/2024 Chronic kidney disease with symptom management only, stage 4 (severe) 04/20/2024 Acquired hypothyroidism 04/20/2024 Rib pain on right side 03/27/2024 Costochondritis 03/27/2024 documented as of this encounter (statuses as of 05/03/2024) Social History Tobacco Use Types Packs/Day Years [...] 9:40 AM EDT Office Visit Family Practice [facility] [address] [place] [address] Sonya Dacosta MD 200 [facility] [place] [place] [address] 05/09/2024 11:30 AM EDT Office Visit Cardiology, [facility] [address] [place] [address] Palak Meier CRNP [address] [place] [address] 06/28/2024 8:30 AM EDT Imaging Cardiac Studies, [facility] [address] [place] [address] Pending Results Name Type Priority Associated Diagnoses Date /Time BASIC METABOLIC PANEL Lab Routine Stage 3b chronic kidney disease (HCC) 05/03/2024 8:13 AM EDT Health Maintenance Due Date Last [...] as of this encounter Visit Diagnoses Diagnosis Stage 3b chronic kidney disease (HCC) documented in this encounter Care Teams Help Desk Analyst Relationship Specialty Start Date End Date Sonya Dacosta MD [address] [place] [address] PCP - General Family Medicine 04/27/24 documented as of this encounter
--- OUTSIDE RECORDS SUMMARY | 2024-07-09 07:13 | External Medical Summary ---
Author Name Unknown Address Unknown Organization [id number]:[facility] [place] [address] Laboratory Report Ordering Provider Test Date Status SALENA BARNETT 05/08/2024 08:58:53 Final Observation Date Value Abnormality Reference (Units ) Status SYNC LEUKOCYTES IN BLOOD BY AUTOMATED COUNT 05/08/2024 08:58:53 8.12 4.00-10.80 (K/uL) Final Segs 05/08/2024 08:58:53 77.4 Above high normal 40.0-75.0 (%) Final Lymphs % 05/08/2024 08:58:53 9.6 Below low normal 18.0-42.0 (%) Final Monos 05/08/2024 08:58:53 8.9 1.0-11.0 (%) Final Eosinophils 05/08/2024 08:58:53 3.2 0.0-6.0 (%) Final Basos 05/08/2024 08:58:53 0.9 0.0-2.0 (%) Final Absolute Segs 05/08/2024 08:58:53 6.29 1.80-7.70 (K/uL) Final Lymphs, absolute 05/08/2024 08:58:53 0.78 Below low normal 1.00-4.80 (K/ul) Final Monos, Abs 05/08/2024 08:58:53 0.72 0.00-1.10 (K/uL) Final Eos, Abs 05/08/2024 08:58:53 0.26 0.00-0.70 (K/uL) Final Basos, Abs 05/08/2024 08:58:53 0.07 0.00-0.20 (K/uL) Final Performing Location [facility] [place] [address]
--- OUTSIDE RECORDS SUMMARY | 2024-07-09 07:13 | External Medical Summary | Summary of Care ---
Author Name Unknown Organization [facility] Address [address] [place] [address] Phone [phone] Care Team Providers Care Wildlife Refuge Manager Name Role Phone Sonya Dacosta MD Primary Care Provider [phone] Reason for Visit * Reason Onset Date Comments Test Results 05/09/2024 Encounter Details Date Type Department Care Team (Late st Contact Info) Description 05/09/2024 Telephone Nephrology, [address] [address] Ellyn Rose MD [address] [place] [address] Test Results Allergies Active Allergy Reactions Criticality [...] Encounter - Aaliyah Palomares RN - 05/09/2024 9:43 AM EDT Scheduled for clini today. Forwarded to [place]. * Telephone Encounter - Aaliyah Palomares RN - 05/09/2024 9:43 AM EDT ----- Message from Ellyn Rose MD sent at 05/06/2024 9:08 PM EDT ----- Kidney function slightly worse than a week ao. Discuss more at clinic visit on 05/09 documented in this encounter Plan of Treatment Upcoming Encounters Date Type Department Care Team (Late st Contact Info) Description 05/09/2024 11:30 AM EDT Office Visit [facility]iology, [facility] [address] Pal[facility] [address] 05/09/2024 1:30 PM EDT Office Visit Nephrology [address] [place] [address] Alesha Conley PA-C [address] [place] [address] 05/09/2024 3:00 PM EDT Imaging Radiology [facility] 132 [facility] [place] [address] 06/08/2024 7:40 AM EDT Office Visit Family Practice [facility] 200 [facility] [place] [address] Sonya Dacosta MD 200 [facility] [place] [address] 06/28/2024 8:30 AM EDT Imaging Cardiac Studies, [facility] 132 [facility] [place] [address] Health Maintenance Due Date Last Done Comments [...] (#1) 2024 07/04/2013, 07/24/2012 GFR 11/08/2024 05/08/2024, 0801/2024, 04/27/2024, Additional history exists PTH 04/04/2025 04/04/2024 [...] filedocumented as of this encounter Care Teams Wildlife Refuge Manager Relationship Specialty Start Date End Date Sonya Dacosta MD [address] [place] [address] PCP - General Family Medicine 04/27/24 documented as of this encounter
--- OUTSIDE RECORDS SUMMARY | 2024-07-09 07:13 | External Medical Summary | Summary of Care ---
Author Name Unknown Organization [facility] Address [address] [place] [address] Phone [phone] Care Team Providers Care Topstitcher Lockstitch Name Role Phone Sonya Dacosta MD Primary Care Provider Reason for Referral * Evaluate & Treat - Unlimited Visits (Within 3 days (urgent)) - Authorized Specialty Diagnoses / Procedures Referred By Contac t Referred To Contact Cardiovascular Medicine / Cardiology Diagnoses Congestive heart failure, unspecified HF chronicity, unspecified heart failure type (HCC) Generalized edema Sonya Dacosta MD [address] [place], [place] [address] Referral ID Status Reason Start Date Expiration Date Visits Requested Visits Authorized [id number] Authorized Specialty Services Required 04/27/2024 999 999 [...] State [place] [address] [place] [address] [address] Sonya Dacosta MD [address] [place] [address] [address] Chronic kidney disease with symptom management only, [...] the morning. 30 Tablet 5 04/11/2024 4 Discontinued([facility] List Clean Up) Furosemide 40 MG Oral [...] to the hospital. He was admitted to [facility]. In the hospital chest x-ray showed pulmonary [...] 04/06/24 after discharge he saw nephrology. Was hypertensive in the office so hydralazine was stopped. [...] 9:40 AM EDT Office Visit Family Practice [facility] [address] Sonya Dacosta MD [facility] [address] 06/28/2024 8:30 AM EDT Imaging Cardiac Studies, [facility] 132 [facility] [place] [address] Pending Results Name Type Priority Associated Diagnoses Date /Time BNP, NT-PRO Lab Routine Congestive heart failure, unspecified HF chronicity, unspecified heart failure type (HCC) Generalized edema 04/27/2024 9:17 AM EDT Scheduled Orders Name Type Priority Associated Diagnoses Orde r Schedule BNP, NT-PRO Lab Routine Congestive heart failure, unspecified HF chronicity, unspecified heart failure type (HCC) Generalized edema Expected: 04/27/2024 (Approximate), Expires: 04/27/2025 Scheduled Referrals Name Type Priority Associated Diagnoses [...] as of this encounter Results * (ABNORMAL) BASIC METABOLIC PANEL (04/27/2024 9:17 AM EDT) BUN 59(H) 6 - 20 mg/dL 04/27/2024 10:16 AM EDT [facility] 56-02 Creatinine 4.9(H) 0.6 - 1.2 mg/dL 04/27/2024 10:16 AM EDT [facility] 56-02 Estimated Glomerular Filtration Rate 13(L) >=60 mL/min 04/27/2024 10:16 AM EDT [facility] 56-02 Comment:eGFR is calculated b ased on the CKD-EPI 2020 equation. Sodium 136 135 - 146 mmol/L 04/27/2024 10:16 AM EDT [facility] 56-02 Potassium 4.4 3.5 - 5.1 mmol/L 04/27/2024 10:16 AM EDT [facility] 56 Chloride 95(L) 98 - 107 mmol/L 04/27/2024 10:16 AM EDT [facility] 56 CO2 27 22 - 32 mmol/L 04/27/2024 10:16 AM EDT [facility] 56- Anion Gap 14 7 - 15 mmol/L 04/27/2024 10:16 AM EDT [place] [address] Glucose 119 70 - 120 mg/dL 04/27/2024 10:16 AM EDT [facility] 56 Calcium 9.5 8.4 - 10.2 mg/dL 04/27/2024 10:16 AM EDT [facility] 56 Blood Venous blood specimen / Unknown Venipuncture / Unknown 04/27/2024 9:17 AM EDT 04/27/2024 9:17 AM EDT Sonya Dacosta MD LAB BLOOD ORDERABLES [facility] 56 [address] [place] [address] documented in this encounter Visit Diagnoses Diagnosis Chronic kidney disease with symptom management only, stage 4 (severe) (HCC)- Primary Congestive heart failure, unspecified HF chronicity, unspecified heart failure type (HCC) Generalized edema Edema HTN, goal below 140/90 Unspecified essential hypertension Acquired hypothyroidism Unspecified hypothyroidism documented in this encounter Care Teams Topstitcher Lockstitch Relationship Specialty Start Date End Date Sonya Dacosta MD 200 [place] [address] PCP - General Family Medicine 04/27/24 documented as of this encounter
--- OUTSIDE RECORDS SUMMARY | 2024-07-09 07:13 | External Medical Summary | Summary of Care ---
Author Name Unknown Organization [facility] Address [address] [place] [address] Phone [phone] Care Team Providers Care Retail Store Manager Name Role Phone Sonya Dacosta MD Primary Care Provider [phone] Reason for Visit * Reason Comments Outpatient Testing Encounter Details Date Type Department Care Team (Late st Contact Info) Description 05/08/2024 9:00 AM EDT Laboratory Laboratory [facility] [address] [place] [phone] [facility] Lab Scenery [address] [place] [address] Allergies Active Allergy Reactions Criticality Noted Date [...] 05/09/2024 11:30 AM EDT Office Visit Cardiology, [facility] 132 [facility] [place] [address] Palak Meier CRNP 132 [facility] [place] [address] 05/09/2024 1:30 PM EDT Office Visit Nephrology [address] [place] [address] Alesha Conley PA-C [address] [place] [address] [address] 06/08/2024 7:40 AM EDT Office Visit Family Practice [facility] [place] [address] [place] [address] [address] Sonya Dacosta MD [address], [place] [address] 06/28/2024 8:30 AM EDT Imaging Cardiac Studies, [facility] [address] [place] [address] Health Maintenance Due Date Last Done Comments [...] filedocumented as of this encounter Care Teams Retail Store Manager Relationship Specialty Start Date End Date Sonya Dacosta MD 200 [place] [address] PCP - General Family Medicine 04/27/24 documented as of this encounter
--- OUTSIDE RECORDS SUMMARY | 2024-07-09 07:13 | External Medical Summary ---
Author Name Unknown Address Unknown Organization [id number]:[facility] - [address] [place] [address] [place] [address] Laboratory Report Ordering Provider Test Date Status TRAVON WADE 05/08/2024 08:58:53 Final Observation Date Value Abnormality Reference (Units ) Status MYCODE SPECIMEN-SST 05/08/2024 08:58:53 Freezing of extracted DNA, whole blood and/or serum. Final Performing Location [facility] - [address] [place] [address]
--- OUTSIDE RECORDS SUMMARY | 2024-07-09 07:13 | External Medical Summary | Summary of Care ---
Author Name Unknown Organization [facility] Address [address] [place] [address] Phone [phone] Care Team Providers Care Forensic Psychologist Name Role Phone Sonya Dacosta MD Primary Care Provider [phone] Reason for Visit * Reason Onset Date Comments Test Results 05/04/2024 Encounter Details Date Type Department Care Team (Late st Contact Info) Description 05/04/2024 Telephone Nephrology, [facility] [address] [place] [address] Services, Scheduling [address] [place] [address] Test Results Allergies Active Allergy Reactions Criticality [...] encounter Miscellaneous Notes * Telephone Encounter - Nona Cagle OSA [...] 05/09/2024 11:30 AM EDT Office Visit Cardiology, [facility] [address] [place] [address] Palak Meier CRNP [address] [place] [address] 05/09/2024 1:30 PM EDT Office Visit Nephrology [address] [place] [address] Alesha Conley PA-C 200 [place] [address] 06/08/2024 7:40 AM EDT Office Visit Family Practice [facility] 200 [facility] [place] [address] Sonya Dacosta MD 200 [facility] [place] [address] 06/28/2024 8:30 AM EDT Imaging Cardiac Studies, [facility] 132 [facility] [place] [address] Health Maintenance Due Date Last Done Comments [...] filedocumented as of this encounter Care Teams Forensic Psychologist Relationship Specialty Start Date End Date Sonya Dacosta MD 200 [place] [address] PCP - General Family Medicine 04/27/24 documented as of this encounter
--- OUTSIDE RECORDS SUMMARY | 2024-07-09 07:13 | External Medical Summary ---
Author Name Unknown Address Unknown Organization K09:[facility] [place] [address] Laboratory Report Ordering Provider Test Date Status SALENA BARNETT 04/27/2024 09:17:01 Final Observation Date Value Abnormality Reference (Units ) Status BUN 04/27/2024 09:17:01 59 Above high normal 6-20 (mg/dL) Final Creatinine 04/27/2024 09:17:01 4.9 Above high normal 0.6-1.2 (mg/dL) Final Glomerular filtration rate/1.73 sq M.predicted [Volume Rate/Area] in Serum, Plasma or Blood by Creatinine-based formula (CKD-EPI) 04/27/2024 09:17:01 13 Below low normal >=60 (mL/min) Final eGFR is calculated based on the CKD-EPI 2020 equation. Sodium 04/27/2024 09:17:01 136 135-146 (m mol/L) Final Potassium 04/27/2024 09:17:01 4.4 3.5-5.1 (m mol/L) Final Cl 04/27/2024 09:17:01 95 Below low normal 98- 107 (mmol/L) Final CO2 04/27/2024 09:17:01 27 22-32 (mmo l/L) Final Anion gap 04/27/2024 09:17:01 14 7-15 (mmol /L) Final Glucose 04/27/2024 09:17:01 119 70-120 (mg /dL) Final Calcium 04/27/2024 09:17:01 9.5 8.4-10.2 ( mg/dL) Final Performing Location [facility] [place] [address]
--- OUTSIDE RECORDS SUMMARY | 2024-07-09 07:13 | External Medical Summary | Summary of Care ---
Author Name Unknown Organization [facility] Address [address] [place] [facility] [place] [address] Phone [phone] Care Team Providers Care Ditto Machine Operator Name Role Phone Sonya Dacosta MD Primary Care Provider [phone] Reason for Visit * Reason Onset Date Comments Advice 04/30/2024 Encounter Details Date Type Department Care Team (Late st Contact Info) Description 04/30/2024 Telephone Cardiology, [facility] [address] [employer] [address] [place] [address] Jacques Boyd, [address] [employer] [place] [address] Advice Allergies Active Allergy Reactions Criticality Noted [...] No 04/26/2024 Does the household have a socorro general hospitallar source of income? (Household - for [...] encounter Miscellaneous Notes * Telephone Encounter - Palak Meier CRNP - 04/30/2024 2:06 PM EDT Noted. Thank you, Palak * Telephone Encounter - Jacques Boyd DO - 04/30/2024 1:07 PM EDT Case reviewed per request of cardiology nursing for triage purposes with noted 3 day referral for cardiology consultation, requested by Dr. Dacosta on 04/27/2024 for evaluation of congestive heart failure with generalized edema. Per review of chart, patient recently admitted to [facility] in [facility],. Cardiology did not follow up patient during that hospital stay, but did have an echocardiogram revealing moderate concentric left ventricular hypertrophy, LVEF in the range of 65 to 70%, with grade 2 diastolic dysfunction and evidence of elevated left-sided filling pressure by Doppler criteria per the report, no significant. EKG performed 03/29/2024 at [facility] and reviewed/interpreted independently, sinus rhythm at 93 beats perminute, left atrial enlargement. Problems during hospital stay included hypertensive urgency, acute kidney injury. It appears the patient has followed with Nephrology since hospital stay, ongoing renal dysfunction noted, most recent chemistry panel on 04/27/2024 revealing creatinine of 4.9, GFR 13. Ongoing titration of antihypertensives noted per recent progress notes As of now, patient was scheduled for cardiology consult on 05/09/2024, which I think is reasonable given workup thus far, question if fluid retention may primarily be driven by progressive renal insufficiency which would also account for the elevated proBNP level on labs. Jacques Boyd DO -encounter copy to Dr Dacosta, Dr Rose of nephro, and ANDIE Mcdonald of cardiology as an FYI forpurpose of coordination of care. documented in this encounter Plan of Treatment Upcoming Encounters Date Type Department Care Team (Late st Contact Info) Description 05/04/2024 9:40 AM EDT Office Visit [facility] [address] Sonya Dacosta MD [facility] [address] 05/09/2024 11:30 AM EDT Office Visit Cardiology, [facility] [address] [place] [address] Palak Meier CRNP [address] [place] [address] 06/28/2024 8:30 AM EDT Imaging Cardiac Studies, [facility] [address] [place] [address] Health Maintenance Due Date Last Done Comments [...] (#1) 2024 07/04/2013, 07/24/2012 GFR 10/28/2024 04/27/2024, 03/2024, 04/20/2024, Additional history exists PTH 04/04/2025 [...] filedocumented as of this encounter Care Teams Ditto Machine Operator Relationship Specialty Start Date End Date Sonya Dacosta MD [address] [place] [address] PCP - General Family Medicine 04/27/24 documented as of this encounter
--- OUTSIDE RECORDS SUMMARY | 2024-07-09 07:13 | External Medical Summary ---
Author Name Unknown Address Unknown Organization [id number]:[facility] [place] - [address] [place] [address] Laboratory Report Ordering Provider Test Date Status EAGLE ENCINAS 04/25/2024 08:55:11 Final Observation Date Value Abnormality Reference (Units) Status PARAPROTEIN NORMAL/ABNORMAL 04/25/2024 08:55:11 Normal Normal Final Protein, Urine 04/25/2024 08:55:11 93 (mg/dL) Final Immunofixation for Urine Narrative 04/25/2024 08:55:11 No monoclonal free light chains present (Bence Pimentel protein), in a background of glomerular proteinuria. Final Performing Location [facility] - [address] [place] [address]
--- OUTSIDE RECORDS SUMMARY | 2024-07-09 07:13 | External Medical Summary ---
Author Name Unknown Address Unknown Organization [id number]:[facility] [place] [address] [place] [address] Laboratory Report Ordering Provider Test Date Status SALENA BARNETT 04/27/2024 09:17:01 Final Exclude Heart Failure: <300 pg/mL
Diagnose Heart Failure:
Age <50 yr: >450 pg/mL
50-75 yr: >900 pg/mL
>75 yr: >1800 pg/mL
GFR is 30-59 mL/min: >1200 pg/mL or Age- adjusted values
GFR <30 mL/min: do not use, not reliable

Prognostic threshold: 1000 pg/mL Observation Date Value Abnormality Reference (Units ) Status BNP, Pro-hormone 04/27/2024 09:17:01 3157 Above high no rmal <300 (pg/mL) Final Performing Location [facility] [place] [address] [place] [address]
--- OUTSIDE RECORDS SUMMARY | 2024-07-09 07:14 | External Medical Summary ---
Author Name Unknown Address Unknown Organization [id number]:[facility] - [address] [place] [address] Laboratory Report Ordering Provider Test Date Status EAGLE ENCINAS 04/20/2024 13:37:33 Final Observation Date Value Abnormality Reference (Units ) Status Folic Acid 04/20/2024 13:37:33 17.0 >4.5 (ng/ mL) Final Performing Location [facility] - [address] [place] [address]
--- OUTSIDE RECORDS SUMMARY | 2024-07-09 07:14 | External Medical Summary | Summary of Care ---
Author Name Unknown Organization [facility] Address [address] [place] [address] Phone [phone] Care Team Providers Care Milking Machine Technician Name Role Phone Cinda Schneider MD Primary Care Prov ider Reason for Visit * Reason Comments Acute Pt experiencing swol bobby hands and loss of sensation in finger tips, reports something feels like it is crawling across his fingertips. Also c/o sore fingers joints and is having trouble squeezing things. Is also having joint soreness in both feet, similar to feeling in finger joints. Overall joint pain in shoulders, elbows, and knees as well. Blood pressure is also high. Reports he had pneumonia, which he got out of the hospital for 3 wks ago and has concerns in relation to kidney levels. Encounter Details Date Type Department Care Team (Late st Contact Info) Description 04/20/2024 12:20 PM EDT Office [facility] [address] [place] [address] Pretty Stephens MD [address] [place] [address] Generalized edema*; HTN, goal below 140/90; Intermittent pain and swelling of hand; Costochondritis; Chronic kidney disease with symptom management only, stage 4 (severe) (HCC); Rib pain on right side; Acquired hypothyroidism; Myalgia, multiple sites; Numbness and tingling; Screening for deficiency anemia Allergies Active Allergy Reactions Criticality Noted Date Comments Amoxicillin Hives 02/07/2014 Nsaids Edema face/lips/tongue High 02/07/2014 Penicillins Hives 02/07/2014 documented as of this encounter (statuses as of 04/20/2024) Medications Medication Sig Dispensed Refills Start Date End Date Status Carvedilol 12.5 MG Oral Tablet (Coreg) Take 1 Tablet by mouth in the morning and 1 Tablet before bedtime. 04/01/2024 Active Levothyroxine Sodium 200 MCG Oral Tablet (Levoxyl) [...] the morning. 90 Capsule 3 04/11/2024 Active levoFLOXacin 750 MG Oral Tablet (Levaquin)Indicat ions:Abnormal chest x-ray Take 1 Tablet by mouth every other day. until gone. 5 Tablet 03/29/2024 04/20/2024 Discontinued (Medication List Clean Up) documented as of this encounter (statuses as of 04/20/2024) Active Problems Problem Noted Date Diagnosed Date HTN, goal below 140/90 04/20/2024 Chronic kidney disease with symptom management only, stage 4 (severe) 04/20/2024 Acquired hypothyroidism 04/20/2024 Rib pain on right side 03/27/2024 Costochondritis 03/27/2024 documented as of this encounter (statuses as of 04/20/2024) Social History Tobacco Use Types Packs/Day Years [...] Sign Reading Time Taken Comments Blood Pressure 174/100 04/20/2024 12:29 PM EDT Pulse 72 04/20/2024 12:29 PM EDT Temperature 36.7 C (98 F) 04/20/2024 12: 29 PM EDT Respiratory Rate 16 04/20/2024 12:2 9 PM EDT Oxygen Saturation 96% 04/20/2024 12: 29 PM EDT Inhaled Oxygen Concentration - - Weight 106.4 kg (234 lb 9.6 oz) 024 12:29 PM EDT Height - - Body Mass Index 30.12 03/27/2024 8:15 AM EDT documented in this encounter Progress Notes * Pretty Stephens MD - 04/20/2024 12:41 PM EDT Images from the original note were not included. History of Present Illness Fly De Luna is a 53 year old male that presents for Acute (Pt experiencing swollen hands and loss of sensation in finger tips, reports something feels like it is crawling across his fingertips. Also c/o sore fingers joints and is having trouble squeezing things. Is also having joint soreness in both feet, similar to feeling in finger joints. Overall joint pain in shoulders, elbows, and kneesas well. Blood pressure is also high. Reports he had pneumonia, which he got out of the hospital for 3 wks ago and has concerns in relation to kidney levels.) 53 year old YOmale with PMH as listed below presents here for evaluation of joint pain in hands andfeet, swelling and hypertension. Duration of illness: 1 -3 month Symptoms present : - swollen hands and loss of sensation in finger tips, reports something feels like it is crawling across his fingertips. Also c/o sore fingers joints and is having trouble squeezing things. Is also having joint soreness in both feet, similar to feeling in finger joints. Overall joint pain in shoulders, elbows, and knees as well. -Blood pressure was found to be high in the emergency when he was infor pneumonia and has been high at home. Patient had low blood pressure episode in the clinic last time with Dr. Rose which he does not understand why that happened but his hydralazine was stopped.Patient called later with leg swelling so his amlodipine was cut in half and Aldactone was added a week ago -Reports he had pneumonia, which he got out of the hospital for 3 wks ago and has concerns in relation to kidney levels. Symptoms not present: Obvious shortness of breath, cough, chest pain, calf pain swelling, recent travel, tick bite, rash, PND Have same similar thing in past : As per record review his blood pressure was either normal or borderline high up until 2021. Normal kidney function in 2020 Since symptoms started things getting : Worse/fluctuating Used anything for this illness: None and as above Other concerns or issues present : Patient is newly established with Dr. Green and not all details are available. He was seen by Dr. Rose recently and notes reviewed Physical Exam Vitals: 04/20/24 1229 Temp: 36.7 C (98 F) Pulse: 72 Resp: 16 SpO2: 96% BP: 174/100 Physical Exam Vitals and nursing note reviewed. Constitutional: General: He is not in acute distress. Appearance: He is normal weight. HENT: Head: Normocephalic. Cardiovascular: Rate and Rhythm: Normal rate and regular rhythm. Pulmonary: Effort: Pulmonary effort is normal. No respiratory distress. Breath sounds: Rales (Both bases left more than right) present. No wheezing. Abdominal: General: Bowel sounds are normal. There is no distension. Palpations: Abdomen is soft. There is no mass. Musculoskeletal: General: No swelling, tenderness or signs of injury. Cervical back: Neck supple. No rigidity. Right lower leg: No edema. Left lower leg: No edema. Comments: No edema right now in his legs but both hands looks a little bit big but no pitting edema Skin: General: Skin is warm. Findings: No lesion or rash. Neurological: Mental Status: He is alert. I have reviewed the following results: CMP, TSH, and CBC Assessment and Plan Generalized edema Suspect he has been CHF or edema is from fluid overload from CKD Would put him on Lasix based on x-ray - XR CHEST 2 VIEWS - BNP, NT-PRO; Future HTN, goal below 140/90 He might benefit from Lasix - BASIC METABOLIC PANEL; Future Intermittent pain and swelling of hand Costochondritis Chronic kidney disease with symptom management only, stage 4 (severe) (HCC) - MONOCLONAL GAMMOPATHIES SCREENING PANEL; Future Rib pain on right side Acquired hypothyroidism - TSH WITH FREE T4 IF INDICATED; Future Myalgia, multiple sites - LYME DISEASE ANTIBODY SCREEN WITH REFLEX TO CONFIRMATION; Future - CBC; Future Numbness and tingling - VITAMIN B12; Future - FOLIC ACID; Future - MONOCLONAL GAMMOPATHIES SCREENING PANEL; Future Screening for deficiency anemia - CBC; Future - FERRITIN; Future - IRON SCREEN, INCLUDING TIBC; Future Wrap-Up Time: I spent a total of 40-54 minutes (exact time 45 mins) on the date of service in preparation, delivery, and documentation of the care provided to Fly De Luna excluding any time spent in the performance of separately billed services. documented in this encounter Nursing Notes * Conchita Mckenzie MED ASSIST - 04/20/2024 12:36 PM EDT Chief Complaint Patient presents with Acute Pt experiencing swollen hands and loss of sensation in finger tips, reports something feels like itis crawling across his fingertips. Also c/o sore fingers joints and is having trouble squeezing things. Is also having joint soreness in both feet, similar to feeling in finger joints. Overall joint pain in shoulders, elbows, and knees as well. Blood pressure is also high. Reports he had pneumonia,which he got out of the hospital for 3 wks ago and has concerns in relation to kidney levels. documented in this encounter Plan of Treatment Upcoming Encounters Date Type Department Care Team (Late st Contact Info) Description 04/27/2024 8:20 AM EDT [facility] [address] [place] [address] Sonya Dacosta MD [address] [place] [address] 06/28/2024 8:30 AM EDT Imaging Cardiac Studies, [facility] [address] [facility] [place] [address] Pending Results Name Type Priority Associated Diagnoses Date /Time XR CHEST 2 VIEWS Medical Imaging STAT Generalized edema 04/20/2024 1:36 PM EDT TSH WITH FREE T4 IF INDICATED Lab Routine Acquired hypothyroidism 04/20/2024 1:37 PM EDT VITAMIN B12 Lab Routine Numbness and tingling 04/20/2024 1:37 PM EDT FOLIC ACID Lab Routine Numbness and tingling 04/20/2024 1:37 PM EDT BNP, NT-PRO Lab Routine Generalized edema 04/20/2024 1:37 PM EDT LYME DISEASE ANTIBODY SCREEN WITH REFLEX TO CONFIRMATION Lab Routine Myalgia, multiple sites 04/20/2024 1:37 PM EDT FERRITIN Lab Routine Screening for deficiency anemia 04/20/2024 1:37 PM EDT IRON SCREEN, INCLUDING TIBC Lab Routine Screening for deficiency anemia 04/20/2024 1:37 PM EDT Scheduled Orders Name Type Priority Associated Diagnoses Orde r Schedule TSH WITH FREE T4 IF INDICATED Lab Routine Acquired hypothyroidism Expected: 04/20/2024 (Approximate), Expires: 04/20/2025 VITAMIN B12 Lab Routine Numbness and tingling Expected: 04/20/2024 (Approximate), Expires: 04/20/2025 FOLIC ACID Lab Routine Numbness and tingling Expected: 04/20/2024 (Approximate), Expires: 04/20/2025 BNP, NT-PRO Lab Routine Generalized edema Expected: 04/20/2024 (Approximate), Expires: 04/20/2025 MONOCLONAL GAMMOPATHIES SCREENING PANEL Lab Routine Chronic kidney disease with symptom management only, stage 4 (severe) (HCC) Numbness and tingling Expected: 04/20/2024, Expires: 04/20/2025 LYME DISEASE ANTIBODY SCREEN WITH REFLEX TO CONFIRMATION Lab Routine Myalgia, multiple sites Expected: 04/20/2024 (Approximate), Expires: 04/20/2025 FERRITIN Lab Routine Screening for deficiency anemia Expected: 04/20/2024 (Approximate), Expires: 04/20/2025 IRON SCREEN, INCLUDING TIBC Lab Routine Screening for deficiency anemia Expected: 04/20/2024 (Approximate), Expires: 04/20/2025 Health Maintenance Due Date Last Done Comments [...] 10/21/2024 04/20/2024, 03/19, 03/29/2024, Additional history exists TSH 03/27/2025 03/27/2024 PTH 04/04/2025 04/04/2024 Phosphate 04/04/2025 04/04/2024 Nephrology Referral 04/06/2025 04/06/2024 Hgb 04/20/2025 04/20/2024, 03/19, 03/29/2024, Additional history exists Diabetes Screening 04/20/2027 04/20/2024, 0 04/04/2024, 03/29/2024, [...] Procedure Name Priority Date/Time Associated Diagnosis Comments XR CHEST 2 VIEWS STAT 04/20/2024 1:36 PM EDT Generalized edema Procedure Note - Kat Hernandes MD / Aura Coates, - 04/20/2024 1:36 PM EDTThis note is in progress. EXAM XR CHEST 2 VIEWS - 04/20/2024 1:36 pm HISTORY 53-year-old male with edema. TECHNIQUE Frontal and lateral radiographs of the chest were obtained. COMPARISON Chest radiograph dated 03/27/2024. FINDINGS FOREIGN BODIES, SUPPORT TUBES, LINES, DEVICES: None. LUNGS, PLEURA: Indistinct pulmonary vasculature with left greater thanright bibasilar pulmonary airspace opacities. No pneumothorax oreffusion. CARDIOVASCULAR, MEDIASTINUM: Prominent cardiac silhouette. Mediastinumis within normal limits. OSSEOUS STRUCTURES: No acute osseous abnormality. IMPRESSION IMPRESSION This report is a preliminary interpretation by a resident physician and issubject to changes following review by an attending radiologist. Be sureto review the final report for any discrepancies. 1. Persistent left greater than right bibasilar pulmonary airspaceopacities with prominent cardiac silhouette and indistinct pulmonaryvasculature. documented in this encounter Results * (ABNORMAL) CBC (04/20/2024 1:37 PM EDT) WBC 8.20 4.00 - 10.80 K/uL 04/20/2024 1:48 PM EDT [facility] RBC 3.98 4.50 - 5.25 M/uL 04/20/2024 1:48 PM EDT [facility] 56 HGB 12.2(L) 14.0 - 16.8 g/dL 04/20/2024 1:48 PM EDT [facility] HCT 37.4(L) 40.0 - 48.4 % 04/20/2024 1:48 PM EDT [facility] MCV 94.0 82.0 - 99.5 fL 04/20/2024 1:48 PM EDT [facility] MCH 30.7 27.0 - 34.0 pg 04/20/2024 1:48 PM EDT [facility] MCHC 32.6 32.0 - 36.0 g/dL 04/20/2024 1:48 PM EDT [facility] RDW 14.8 11.5 - 15.5 % 04/20/2024 1:48 PM EDT [place] [address] PLT 257 140 - 400 K/uL 04/20/2024 1:48 PM EDT [place] [address] MPV 9.1 6.6 - 11.1 fL 04/20/2024 1:48 PM EDT [facility] 56 Blood Venous blood specimen / Unknown Venipuncture / Unknown 04/20/2024 1:37 PM EDT 04/20/2024 1:37 PM EDT Pretty Stephens MD LAB BLOOD ORDERABLES [facility] [address] [place] [address] documented in this encounter Visit Diagnoses Diagnosis Generalized edema- Primary Edema HTN, goal below 140/90 Unspecified essential hypertension Intermittent pain and swelling of hand Costochondritis Tietze's disease Chronic kidney disease with symptom management only, stage 4 (severe) (HCC) Rib pain on right side Chest pain, unspecified Acquired hypothyroidism Unspecified hypothyroidism Myalgia, multiple sites Numbness and tingling Disturbance of skin sensation Screening for deficiency anemia Screening for other and unspecified deficiency anemia documented in this encounter Care Teams Milking Machine Technician Relationship Specialty Start Date End Date Cinda Schneider MD [address] [place] [address] [place] [address] PCP - General Family Medicine 03/27/24 documented as of this encounter
--- OUTSIDE RECORDS SUMMARY | 2024-07-09 07:14 | External Medical Summary | Summary of Care ---
Author Name Unknown Organization [facility] Address [address] [place] [address] Phone [phone] Care Team Providers Care Eligibility Consultant Name Role Phone Cinda Schneider MD Primary Care Prov ider Reason for Visit * Reason Onset Date Comments Test Results 04/11/2024 Encounter Details Date Type Department Care Team (Late st Contact Info) Description 04/11/2024 Telephone Nephrology, [address] [address] Ellyn Rose MD [address] [place] [address] Test Results Allergies Active Allergy Reactions Criticality Noted Date Comments Amoxicillin Hives 02/07/2014 Nsaids Edema face/lips/tongue High 02/07/2014 Penicillins Hives 02/07/2014 documented as of this encounter (statuses as of 04/13/2024) Medications Medication Sig Dispensed Refills Start Date End Date Status levoFLOXacin 750 MG Oral Tablet (Levaquin)Indicat ions:Abnormal chest x-ray Take 1 Tablet by mouth every other day. until gone. 5 Tablet 03/29/2024 Active Carvedilol 12.5 MG Oral Tablet (Coreg) [...] the morning. 90 Capsule 3 04/11/2024 Active amLODIPine Besylate 10 MG Oral Tablet (Norvasc)Indicati ons:Hypertension goal BP (blood pressure) < 140/90 Take 0.5 Tablets by mouth in the morning and 0.5 Tablets before bedtime. 04/02/2024 04/11/2024 Discontinued documented as of this encounter (statuses as of 04/13/2024) Active Problems Problem Noted Date Diagnosed Date Rib pain on right side 03/27/2024 Costochondritis 03/27/2024 documented as of this encounter (statuses as of 04/13/2024) Social History Tobacco Use Types Packs/Day Years [...] encounter Miscellaneous Notes * Telephone Encounter - Ivania Knight LPN - 04/13/2024 9:27 AM EDT Spoke with pt he is at work so does not have * Telephone Encounter - Aaliyha Palomares RN - 04/11/2024 2:42 PM EDT TE with pt regarding Dr Rose recommendations. Pt was notified by provider. Will have nurse followup on Tuesday and labs in 2 weeks * Telephone Encounter - Ellyn Rose MD - 04/11/2024 2:23 PM EDT Called pt to discuss BP which has been high. Also has edema. Will reduce Amlodipine to 5mg daily. Will add aldactone 25mg daily. Vit was also low. Will add vitamin d3 [address] Rose documented in this encounter Plan of Treatment Upcoming Encounters Date Type Department Care Team (Late st Contact Info) Description 04/27/2024 8:20 AM EDT Office Visit Family Practice [facility] [address] [facility] [place] [address] Sonya Dacosta MD [address] [facility] [place] [address] 06/28/2024 8:30 AM EDT Imaging Cardiac Studies, [facility] 132 [facility] [place] [address] Scheduled Orders Name Type Priority Associated Diagnoses Orde r Schedule BASIC METABOLIC PANEL Lab Routine Hypertension goal BP (blood pressure) < 140/90 Expected: 04/23/2024 (Approximate), Expires: 04/11/2025 Health Maintenance Due Date Last Done Comments [...] 07/04/2013, 07/24/2012 TSH 03/27/2025 03/27/2024 Diabetes Screening 04/04/2027 04/04/2024, 0 03/29/2024, 03/27/2024, Additional history exists Lipid Panel 03/27/2029 03/27/2024 HPV (Gardasil) Vaccine Aged Out No lo nger eligible based on patient's age to complete this topic MENINGOCOCCAL (MENACTRA/MENVEO) Aged Out No longer eligible based on patient's age to complete this topic Pneumococcal Vaccine: Pediatrics (0 to 5 Years) and At-Risk Patients (6 to 64 Years) Aged Out No longer eligible based on patient's age to complete this topic documented as of this encounter Medical Devices Not on filedocumented as of this encounter Visit Diagnoses Diagnosis Hypertension goal BP (blood pressure) < 140/90 Unspecified essential hypertension documented in this encounter Care Teams Eligibility Consultant Relationship Specialty Start Date End Date Cinda Schneider MD [address] [place] [address] [place] [address] PCP - General Family Medicine 03/27/24 documented as of this encounter
--- OUTSIDE RECORDS SUMMARY | 2024-07-09 07:14 | External Medical Summary ---
Author Name Unknown Address Unknown Organization [id number]:[facility] - [address] [place] [address] Laboratory Report Ordering Provider Test Date Status EAGLE ENCINAS 04/20/2024 13:37:33 Final Observation Date Value Abnormality Reference (Units ) Status Iron 04/20/2024 13:37:33 49 45-176 (ug/dL) Final Iron-binding capacity 04/20/2024 13:37:33 207 Below low normal 250-425 (ug/dL) Final Transferrin Sat % 04/20/2024 13:37:33 24 15-55 (%) Final Performing Location [facility] [place] - [address] [place] [address]
--- OUTSIDE RECORDS SUMMARY | 2024-07-09 07:14 | External Medical Summary ---
Author Name Unknown Address Unknown Organization [id number]:[facility] [place] [address] Laboratory Report Ordering Provider Test Date Status DEBORAH SANCHEZ 04/20/2024 13:37:33 Final Observation Date Value Abnormality Reference (Units ) Status BUN 04/20/2024 13:37:33 43 Above high normal 6-20 (mg/dL) Final Creatinine 04/20/2024 13:37:33 3.7 Above high normal 0.6-1.2 (mg/dL) Final Glomerular filtration rate/1.73 sq M.predicted [Volume Rate/Area] in Serum, Plasma or Blood by Creatinine-based formula (CKD-EPI) 04/20/2024 13:37:33 19 Below low normal >=60 (mL/min) Final eGFR is calculated based on the CKD-EPI 2020 equation. Sodium 04/20/2024 13:37:33 134 Below low normal 135 -146 (mmol/L) Final Potassium 04/20/2024 13:37:33 4.4 3.5-5.1 (m mol/L) Final Cl 04/20/2024 13:37:33 98 98-107 (mm ol/L) Final CO2 04/20/2024 13:37:33 23 22-32 (mmo l/L) Final Anion gap 04/20/2024 13:37:33 13 7-15 (mmol /L) Final Glucose 04/20/2024 13:37:33 100 70-120 (mg /dL) Final Calcium 04/20/2024 13:37:33 8.8 8.4-10.2 ( mg/dL) Final Performing Location [facility] [place] [address]
--- OUTSIDE RECORDS SUMMARY | 2024-07-09 07:14 | External Medical Summary ---
Author Name Unknown Address Unknown Organization K01:[facility] [place] - [address] [place] [address] Laboratory Report Ordering Provider Test Date Status HUANGJACYCASSANDRA 04/20/2024 13:37:33 Final Observation Date Value Abnormality Reference (Units ) Status TSH 04/20/2024 13:37:33 6.52 Above high normal 0. 27-4.20 (uIU/mL) Final Performing Location [facility] [place] - [address] [place] [address]
--- OUTSIDE RECORDS SUMMARY | 2024-07-09 07:14 | External Medical Summary ---
Author Name Unknown Address Unknown Organization : Laboratory Report Ordering Provider Test Date Status DEBORAH SANCHEZ 04/25/2024 08:45:17 Final Observation Date Value Abnormality Reference (Units ) Status Urine Volume 04/25/2024 08:45:17 3100 (mL) Final Metanephrines, 24-hr Urine 04/25/2024 08:45:17 146 90-315 (mcg/24 h) Final This test was developed and its analytical performance
characteristics have been determined by [facility] [place], [place]. It has
not been cleared or approved by the U.S. Food and Drug
Administration. This assay has been validated pursuant
to the CLIA regulations and is used for clinical
purposes. Normetanephrine, 24-hr Urine 04/25/2024 08:45:17 667 122-676 (mcg/24 h) Final This test was developed and its analytical performance
characteristics have been determined by [facility] [place] [place]. It has
not been cleared or approved by the U.S. Food and Drug
Administration. This assay has been validated pursuant
to the CLIA regulations and is used for clinical
purposes. Metanephrines, 24-hr Urine 04/25/2024 08:45:17 813 224-832 (mcg/24 h) Final A four fold elevation of uri nary normetanephrines
is extremely likely to be due to a tumor, while a
four fold elevation of urinary metanephrines is
highly suggestive, but not diagnostic of the tumor.
Measurement of plasma Metanephrines and Chromogranin
A is recommended for confirmation.

Test Performed at:
[facility]
[address] [facility]
[place] [address]
Marcell Wayne M.D., Ph.D.,Director of Laboratories Performing Location
--- OUTSIDE RECORDS SUMMARY | 2024-07-09 07:14 | External Medical Summary | Summary of Care ---
Author Name Unknown Organization [facility] Address [address] [place] [address] Phone [phone] Care Team Providers Care Bioinformatics Associate Name Role Phone Cinda Schneider MD Primary Care Prov ider Reason for Visit * Reason Onset Date Comments Test Results 04/11/2024 Encounter Details Date Type Department Care Team (Late st Contact Info) Description 04/11/2024 Telephone Nephrology, [address] [address] Ellyn Rose MD [address] [place] [address] Test Results Allergies Active Allergy Reactions Criticality Noted Date Comments Amoxicillin Hives 02/07/2014 Nsaids Edema face/lips/tongue High 02/07/2014 Penicillins Hives 02/07/2014 documented as of this encounter (statuses as of 04/11/2024) Medications Medication Sig Dispensed Refills Start Date [...] as of this encounter (statuses as of 04/11/2024) Active Problems Problem Noted Date Diagnosed Date Rib pain on right side 03/27/2024 Costochondritis 03/27/2024 documented as of this encounter (statuses as of 04/11/2024) Social History Tobacco Use Types Packs/Day Years [...] Telephone Encounter - Aaliyah Palomares RN - 04/11/2024 2:42 PM EDT [...] 8:20 AM EDT Office Visit Family Practice [facility] 200 [facility] [place] [address] Sonya Dacosta MD 200 [facility] [place] [address] 06/28/2024 8:30 AM EDT Imaging Cardiac Studies, [facility] 132 [facility] [place] [address] Scheduled Orders Name Type Priority Associated Diagnoses [...] hypertension documented in this encounter Care Teams Bioinformatics Associate Relationship Specialty Start Date End Date Cinda Schneider MD [address] [place] [address] [place] [address] PCP - General Family Medicine 03/27/24 documented as of this encounter
--- OUTSIDE RECORDS SUMMARY | 2024-07-09 07:14 | External Medical Summary ---
Author Name Unknown Address Unknown Organization [id number]:LABORATORY [facility] [place] - [address] [place] [address] Laboratory Report Ordering Provider Test Date Status HUANGJACYCASSANDRA 04/25/2024 08:55:11 Final Observation Date Value Abnormality Reference (Units) Status PARAPROTEIN NORMAL/ABNORMAL 04/25/2024 08:55:11 Normal Normal Final Immunofixation for Serum or Plasma 04/25/2024 08:55:11 No monoclonal gammopathy detected. Final Performing Location LABORATORY [facility] [place] - [address] [place] [address]
--- OUTSIDE RECORDS SUMMARY | 2024-07-09 07:14 | External Medical Summary | Summary of Care ---
Author Name Unknown Organization [facility] Address [address] [place] [address] Phone [phone] Care Team Providers Care Accounting Methods Analyst Name Role Phone Cinda Schneider MD Primary Care Prov ider Reason for Visit * Reason Onset Date Comments Test Results 04/11/2024 Encounter Details Date Type Department Care Team (Late st Contact Info) Description 04/11/2024 Telephone Nephrology, [address] [address] Ellyn Rose MD [address] [place] [address] Test Results Allergies Active Allergy Reactions [...] is at work so does not have BP reading Does report Yesterday AM Systolic was in the 180-170 but dropped to 140's in the PM Today back up in the 180 Does note a decrease in diastolic numbers Pt does report some dizziness since starting new RX but resolves "When I sit down and rest abit" Pt is instructed to send actual reading through my chart for review Dr Milton LOPEZ * Telephone Encounter - Aaliyah Palomares RN [...] 8:20 AM EDT Office Visit Family Practice [facility] [place] [address] Sonya Dacosta MD 200 [facility] [place] [address] 06/28/2024 8:30 AM EDT Imaging Cardiac Studies, [facility] [address] [place] [address] Scheduled Orders Name Type Priority Associated Diagnoses [...] hypertension documented in this encounter Care Teams Accounting Methods Analyst Relationship Specialty Start Date End Date Cinda Schneider MD [address] [place] [address] [place] [phone] PCP - General Family Medicine 03/27/24 documented as of this encounter
--- OUTSIDE RECORDS SUMMARY | 2024-07-09 07:14 | External Medical Summary ---
Author Name Unknown Address Unknown Organization [id number]:[facility] [place] [address] [place] [address] Laboratory Report Ordering Provider Test Date Status EAGLE ENCINAS 04/20/2024 13:37:33 Final Observation Date Value Abnormality Reference (Units ) Status Borrelia burgdorferi IgG and IgM [Interpretation] in Serum by Immunoassay 04/20/2024 13:37:33 Negative Negative Final Performing Location [facility] [place] [address] [place] [address]
--- OUTSIDE RECORDS SUMMARY | 2024-07-09 07:14 | External Medical Summary | Summary of Care ---
Author Name Unknown Organization [facility] Address [address] [place] [address] Phone [phone] Care Team Providers Care Fabrication Manager Name Role Phone Cinda Schneider MD Primary Care Prov ider Reason for Visit * Reason Comments Outpatient Testing Encounter Details Date Type Department Care Team (Late st Contact Info) Description 04/23/2024 3:10 PM EDT Laboratory Laboratory [facility] [place] [address] [place] [address] [place], Lab Scenery [address] [place] [address] Arrived Allergies Active Allergy Reactions Criticality Noted Date Comments Amoxicillin Hives 02/07/2014 Nsaids Edema face/lips/tongue High 02/07/2014 Penicillins Hives 02/07/2014 documented as of this encounter (statuses as of 04/23/2024) Medications Medication Sig Dispensed Refills Start Date [...] before bedtime. 270 Tablet 3 04/23/2024 Active documented as of this encounter (statuses as of 04/23/2024) Active Problems Problem Noted Date Diagnosed Date HTN, goal below 140/90 04/20/2024 Chronic kidney disease with symptom management only, stage 4 (severe) 04/20/2024 Acquired hypothyroidism 04/20/2024 Rib pain on right side 03/27/2024 Costochondritis 03/27/2024 documented as of this encounter (statuses as of 04/23/2024) Social History Tobacco Use Types Packs/Day Years [...] Description 04/27/2024 8:20 AM EDT Office Visit [facility] 200 [facility] [place], [place] [address] Sonya Dacosta MD [address] [place] [address] 06/28/2024 8:30 AM EDT Imaging Cardiac Studies, [facility] [address] [place] [address] Health Maintenance Due Date Last Done Comments [...] filedocumented as of this encounter Care Teams Fabrication Manager Relationship Specialty Start Date End Date Cinda Schneider MD [address] [place] [address] [place] [address] PCP - General Family Medicine 03/27/24 documented as of this encounter
--- OUTSIDE RECORDS SUMMARY | 2024-07-09 07:14 | External Medical Summary ---
Author Name Unknown Address Unknown Organization [id number]:[facility]ORY [facility] [place] - [facility] [address] [facility] [address] Laboratory Report Ordering Provider Test Date Status EAGLE ENCINAS 04/25/2024 08:55:11 Final Observation Date Value Abnormality Reference (Units ) Status [place] light chains, Free, Serum 04/25/2024 08:55:11 112.34 Above high normal 3.30-19.40 (mg/L) Final Lambda light chains, free, Serum 04/25/2024 08:55:11 107.86 Above high normal 5.71-26.30 (mg/L) Final KAPPA LAMBDA FLC RATIO 04/25/2024 08:55:11 1.04 0.26-1.65 Final Performing Location LABORATORY [facility] [place] - [facility] [place] [address]
--- OUTSIDE RECORDS SUMMARY | 2024-07-09 07:14 | External Medical Summary ---
Author Name Unknown Address Unknown Organization [id number]:LABORATORY [facility] [place] - [address] [place] [address] Laboratory Report Ordering Provider Test Date Status EAGLE ENCINAS 04/20/2024 13:37:33 Final Observation Date Value Abnormality Reference (Units ) Status Vitamin B12 04/20/2024 13:37:33 [phone] (pg/mL) Final Performing Location LABORATORY [facility] - [address] [place] [address]
--- OUTSIDE RECORDS SUMMARY | 2024-07-09 07:14 | External Medical Summary ---
Author Name Unknown Address Unknown Organization [id number]:LABORATORY [facility] - [address] [place] [address] Laboratory Report Ordering Provider Test Date Status EAGLE ENCINAS 04/20/2024 13:37:33 Final Observation Date Value Abnormality Reference (Units ) Status Ferritin 04/20/2024 13:37:33 454 Above high normal 30 -400 (ng/mL) Final Performing Location LABORATORY [facility] - [address] [place] [address]
--- OUTSIDE RECORDS SUMMARY | 2024-07-09 07:14 | External Medical Summary ---
Author Name Unknown Address Unknown Organization [id number]:LABORATORY [facility] [place] - [facility] [address] [address] Laboratory Report Ordering Provider Test Date Status EAGLE ENCINAS 04/20/2024 13:37:33 Final Exclude Heart Failure: <300 pg/mL
Diagnose Heart Failure:
Age <50 yr: >450 pg/mL
50-75 yr: >900 pg/mL
>75 yr: >1800 pg/mL
GFR is 30-59 mL/min: >1200 pg/mL or Age- adjusted values
GFR <30 mL/min: do not use, not reliable

Prognostic threshold: 1000 pg/mL Observation Date Value Abnormality Reference (Units ) Status BNP, Pro-hormone 04/20/2024 13:37:33 4579 Above high no rmal <300 (pg/mL) Final Performing Location LABORATORY [facility] [place] - [address] [place] [address]
--- OUTSIDE RECORDS SUMMARY | 2024-07-09 07:14 | External Medical Summary | Summary of Care ---
Author Name Unknown Organization [facility] Address [address] [place] [address] Phone [phone] Care Team Providers Care Blog Writer Name Role Phone Cinda Schneider MD Primary Care Prov ider Reason for Visit * Reason Comments NEW PATIENT Hospital Follow-Up Encounter Details Date Type Department Care Team (Late st Contact Info) Description 04/06/2024 10:00 AM EDT Office Visit Nephrology, [address] [address] Ellyn Rose MD [address] [place] [address] Stage 3b chronic kidney disease (HCC)*; HTN, goal below 140/90; Hyperparathyroidism, secondary renal (HCC) Allergies Active Allergy Reactions Criticality Noted Date Comments Amoxicillin Hives 02/07/2014 Nsaids Edema face/lips/tongue High 02/07/2014 Penicillins Hives 02/07/2014 documented as of this encounter (statuses as of 04/06/2024) Medications Medication Sig Dispensed Refills Start Date [...] morning. Takes at bedtime . 12/28/2023 Active amLODIPine Besylate 10 MG Oral Tablet (Norvasc)Indicati ons:Hypertension goal BP (blood pressure) < 140/90 Take 0.5 Tablets by mouth in the morning and 0.5 Tablets before bedtime. 04/02/2024 Active Multivitamin Adult (Minerals) Oral Tablet 1 Tablet in the morning. 03/29/2024 Active hydrALAZINE HCl 25 MG Oral Tablet (Apresoline) 1 Tablet in the morning and 1 Tablet at noon and 1 Tablet before bedtime. 04/01/2024 04/06/2024 Discontinued documented as of this encounter (statuses as of 04/06/2024) Active Problems Problem Noted Date Diagnosed Date Rib pain on right side 03/27/2024 Costochondritis 03/27/2024 documented as of this encounter (statuses as of 04/06/2024) Social History Tobacco Use Types Packs/Day Years [...] Sign Reading Time Taken Comments Blood Pressure 98/60 04/06/2024 10:28 AM EDT Pulse 80 04/06/2024 10:28 AM EDT Temperature 36.6 C (97.9 F) 04/06/2024 10:28 AM E DT Respiratory Rate 20 04/06/2024 10:30 AM EDT Oxygen Saturation 92% 04/06/2024 10:30 AM EDT Inhaled Oxygen Concentration - - Weight 111 kg (244 lb 11.2 oz) 04/06/2024 9:57 A M EDT Height - - Body Mass Index 31.42 03/27/2024 8:15 AM EDT documented in this encounter Progress Notes * Ellyn Rose MD - 04/06/2024 10:07 AM EDT REASON FOR CONSULT: CKD Requesting physician:Cinda Green MD HPI: Fly De Luna is a 53 year old male seen in initial consultation for CKD stage IIIB. Past medical history of hypertension, hypothyroidism, hyperlipidemia, depression and CKD stage IIIB. Patient recently hospitalized at [facility] with pneumonia, hypertensive urgency and creatinine of 2.5. Renal ultras ound at outside hospital was unremarkable. We do not have baseline renal function despite extensivesuch in his prior records at the [facility]. patient was discharged on levofloxacin every other day. He now feels better. Home blood pressures have been fluctuating. He denies urinary symptoms. He denies salt intake. No NSAIDs. Patient was dizzy during examination and blood pressure droppedto 80/50. Blood pressure subsequently improved after patient rested. was at the bedside. Review of Systems: General ROS: negative for - chills or fever Psychological ROS: negative for - mood swings ENT ROS: negative for - nasal congestion or nasal discharge Endocrine ROS: negative Respiratory ROS: no cough, shortness of breath, or wheezing Cardiovascular ROS: no chest pain or dyspnea on exertion Gastrointestinal ROS: no abdominal pain, change in bowel habits, or black or bloody stools Genito-Urinary ROS: no dysuria, trouble voiding, or hematuria Musculoskeletal ROS: negative for - muscle pain Neurological ROS: no TIA or stroke symptoms Dermatological ROS: negative for rash Past Medical History: Diagnosis Date Depression Hypothyroidism Past Surgical History: Procedure Laterality Date UMBIL HERNIA REPAIR (REDUCIBLE) AGE 5+YR Review of patient's allergies indicates: Allergen Reactions Nsaids Edema face/lips/tongue Amoxicillin Hives Penicillins Hives Current Outpatient Medications Medication Sig Dispense Refill levoFLOXacin 750 MG Oral Tablet (Levaquin) Take 1 Tablet by mouth every other day. until gone. 5 Tablet 0 Carvedilol 12.5 MG Oral Tablet (Coreg) Take 1 Tablet by mouth in the morning and 1 Tablet before bedtime. Levothyroxine Sodium 200 MCG Oral Tablet (Levoxyl) Take 1 Tablet by mouth in the morning. Takes at bedtime . amLODIPine Besylate 10 MG Oral Tablet (Norvasc) Take 0.5 Tablets by mouth in the morning and 0.5 Tablets before bedtime. Multivitamin Adult (Minerals) Oral Tablet 1 Tablet in the morning. No current facility-administered medications for this visit. No family history on file. Social History Socioeconomic History Marital status: Spouse name: Not on file Number of children: Not on file Years of education: Not on file Highest education level: Not on file Occupational History Not on file Tobacco Use Smoking status: Never Smokeless tobacco: Never Substance and Sexual Activity Alcohol use: Yes Comment: 2 beers a month Drug use: No Sexual activity: Not on file Other Topics Concern Not on file Social History Narrative Not on file Social Determinants of Health Financial Resource Strain: Not on file Food Insecurity: Not on file Transportation Needs: Not on file Social Connections: Unknown (03/06/2024) Social Connections How often do you feel lonely or isolated from those around you? (Adult - for ages 18 years and over): Not on file Housing Stability: Not on file Filed Vitals: 04/06/24 0957 04/06/24 1028 04/06/24 1030 BP: 117/73 98/60 Pulse: 81 80 Resp: 20 22 20 Temp: 36.4 C (97.6 F) 36.6 C (97.9 F) TempSrc: Skin Skin SpO2: 96% 89% 92% Weight: 111 kg (244 lb 11.2 oz) PHYSICAL EXAM: GENERAL: Well-appearing, Alert, in no acute distress. EYES: PERRL, conjunctivae anicteric. ENT: Mucous membranes moist, oropharynx clear. NECK: Supple, no JVD. LYMPH: No cervical or supraclavicular lymphadenopathy. LUNGS: Clear to auscultation bilaterally, no respiratory distress. CARDIAC: Regular rate and rhythm, normal S1/S2, no murmurs, rubs, or gallops. ABDOMEN: Soft, non-tender, non-distended, bowel sounds present. EXT/MSK: No clubbing, cyanosis, or edema. SKIN: No rash, no jaundice. NEURO: Oriented x3, No tremor, no asterixis. LABS/STUDIES: Recent Labs Units 04/04/24 1240 03/29/24 1131 03/27/24 0915 SODIUM - [facility] mmol/L 132* 134* 138 POTASSIUM - [facility] mmol/L 3.8 3.8 4.3 CHLORIDE - [facility] mmol/L 98 95* 99 CO2 - [facility] mmol/L 23 26 27 BUN - [facility] mg/dL 33* 27* 25* CREATININE - [facility] mg/dL 2.7* 2.5* 2.4* Recent Labs Units 04/04/24 1240 03/29/24 1131 WBC K/uL 9.45 8.90 HGB g/dL 12.6* 13.5* PLT K/uL 217 182 Recent Labs Units 04/04/24 1240 03/29/24 1131 03/27/24 0915 CALCIUM - [facility] mg/dL 8.5 9.3 9.2 PHOSPHORUS - [facility] mg/dL 3.8 -- -- Recent Labs Units 03/27/24 0915 HEMOGLOBIN A1C - [facility] % 5.2 No results for input(s): "MICROALBUMIN", "PROCRRATIO" in the last 997[address] hours. ASSESSMENT/PLAN: Fly was seen today for new patient and hospital follow-up. Diagnoses and all orders for this visit: Stage 3b chronic kidney disease (HCC) - BASIC METABOLIC PANEL; Future Patient with CKD stage IIIB due to hypertensive nephrosclerosis. Recent creatinine of 2.7 which is close to his creatinine during hospitalization of 2.5. He has 300 mg of proteinuria. We do not have baseline labs. There is also possibility that this is acute kidney injury in setting of pneumonia. Patient recently hospitalized for pneumonia and hypertensive urgency. He was discharged on amlodipine, Coreg and hydralazine. Patient was hypotensive during physical exam today. I am stopping his hydralazine. I have asked him to monitor blood pressure at home. He knows to avoid NSAIDs and keep well hydrated. Repeat BMP in a month. HTN, goal below 140/90 Blood pressure is controlled and patient had an episode of hypotension during office visit. I am stopping his hydralazine as above. I have asked him to monitor blood pressure twice daily. He can continue Coreg and amlodipine. Patient instructed to skip antihypertensive if his systolic is less than 100. Hyperparathyroidism, secondary renal (HCC) - 25-HYDROXY VITAMIN D PTH was high. I am checking vitamin-D levels. He will likely need vitamin-D supplementation Follow Up: Return in about 6 months (around 10/07/2024). Ellyn Rose MD Nephrology, [facility] 200 [facility] [place] [address] This note was generated with the help of voice recognition software. Please excuse for errors. documented in this encounter Nursing Notes * Ivania Knight LPN - 04/06/2024 9:55 AM EDT Patient identified by verbal name and date of .New patient referral from [facility] Hospital discharge 03/31/24 Hypertension pneumonia Last labs 04/04/24 Pt notes no SOB but notes pitting edema to bilateral lower extremities documented in this encounter Plan of Treatment Upcoming Encounters Date Type Department Care Team (Late st Contact Info) Description 04/27/2024 8:20 AM EDT Office Visit Family Practice [facility] [address] [facility] [place] [address] Sonya Dacosta MD [address] [facility] [place] [address] 06/28/2024 8:30 AM EDT Imaging Cardiac Studies, [facility] 132 [facility] [place] [address] Pending Results Name Type Priority Associated Diagnoses Date /Time 25-HYDROXY VITAMIN D Lab Routine Hyperparathyroidism, secondary renal (HCC) 04/04/2024 12:40 PM EDT Scheduled Orders Name Type Priority Associated Diagnoses Orde r Schedule BASIC METABOLIC PANEL Lab Routine Stage 3b chronic kidney disease (HCC) Expected: 05/21/2024, Expires: 04/06/2025 Health Maintenance Due Date Last Done Comments [...] Diagnoses Diagnosis Stage 3b chronic kidney disease (HCC)- Primary HTN, goal below 140/90 Unspecified essential hypertension Hyperparathyroidism, secondary renal (HCC) Secondary hyperparathyroidism (of renal origin) documented in this encounter Care Teams Blog Writer Relationship Specialty Start Date End Date Cinda Schneider MD [address] [place] [address] [place] [address] PCP - General Family Medicine 03/27/24 documented as of this encounter
--- OUTSIDE RECORDS SUMMARY | 2024-07-09 07:14 | External Medical Summary | Summary of Care ---
Author Name Unknown Organization [facility] Address [address] [place] [address] Phone [phone] Care Team Providers Care Scenery Builder Name Role Phone Cinda Schneider MD Primary Care Prov ider Reason for Visit * Reason Comments Outpatient Testing Encounter Details Date Type Department Care Team (Late st Contact Info) Description 04/20/2024 1:30 PM EDT Laboratory Laboratory [facility] [place] [address] [place] [address] [place], Lab Scenery [address] [place] [address] Hypertension goal BP (blood pressure) < 140/90; Acquired hypothyroidism; Numbness and tingling; Generalized edema; HTN, goal below 140/90; Myalgia, multiple sites; Screening for deficiency anemia Allergies Active Allergy [...] Active amLODIPine Besylate 10 MG Oral Tablet (Norvasc)Indications :Hypertension goal BP (blood pressure) < 140/90 Take 0.5 Tablets by mouth in the morning. 30 Tablet 5 04/11/2024 Active Vitamin D3 50 MCG (2000 UT) Oral Capsule Take 1 Capsule by mouth in the morning. 90 Capsule 3 04/11/2024 Active documented as of this encounter (statuses [...] 8:20 AM EDT Office Visit Family Practice [facility] [place] [address] [place], [place] [address] Sonya Dacosta MD [address] [place] [address] 06/28/2024 8:30 AM EDT Imaging Cardiac Studies, [facility] [address] [place] [address] Pending Results Name Type Priority Associated Diagnoses Date /Time BASIC METABOLIC PANEL Lab Routine Hypertension goal BP (blood pressure) < 140/90 04/20/2024 1:37 PM EDT TSH WITH FREE T4 IF [...] for deficiency anemia 04/20/2024 1:37 PM EDT LYME DISEASE ANTIBODY SCREEN Lab Routine Myalgia, multiple sites 04/20/2024 1:37 PM EDT Health Maintenance Due Date Last Done [...] (FLU shot) (#1) 2024 07/04/2013, 07/24/2012 GFR 10/05/2024 04/04/2024, 03/19, 03/27/2024 TSH 03/27/2025 03/27/2024 Hgb 04/04/2025 04/20/2024, 03/19, 03/29/2024, Additional history exists PTH 04/04/2025 04/04/2024 Phosphate 04/04/2025 04/04/2024 Nephrology Referral 04/06/2025 04/06/2024 Diabetes Screening 04/04/2027 04/04/2024, 0 03/29/2024, 03/27/2024, [...] Name Priority Date/Time Associated Diagnosis Comments CBC Routine 04/20/2024 1:37 PM EDT Myalgia, multiple sites Screening for deficiency anemia documented in this encounter Results * (ABNORMAL) CBC (04/20/2024 1:37 PM EDT) WBC 8.20 4.00 - 10.80 K/uL 04/20/2024 1:48 PM EDT [facility] 56 RBC 3.98 4.50 - 5.25 M/uL 04/20/2024 1:48 PM EDT [facility] 56- HGB 12.2(L) 14.0 - 16.8 g/dL 04/20/2024 1:48 PM EDT [facility] 56- HCT 37.4(L) 40.0 - 48.4 % 04/20/2024 1:48 PM EDT [facility] 56 MCV 94.0 82.0 - 99.5 fL 04/20/2024 1:48 PM EDT [facility] 56 MCH 30.7 27.0 - 34.0 pg 04/20/2024 1:48 PM EDT [facility] MCHC 32.6 32.0 - 36.0 g/dL 04/20/2024 1:48 PM EDT [facility] RDW 14.8 11.5 - 15.5 % 04/20/2024 1:48 PM EDT [facility] PLT 257 140 - 400 K/uL 04/20/2024 1:48 PM EDT [facility] MPV 9.1 6.6 - 11.1 fL 04/20/2024 1:48 PM EDT [facility] Blood Venous blood specimen / Unknown Venipuncture / Unknown 04/20/2024 1:37 PM EDT 04/20/2024 1:37 PM EDT Pretty Stephens MD LAB BLOOD ORDERABLES [facility] [address] [place] [address] documented in this encounter Visit Diagnoses Diagnosis Hypertension goal BP (blood pressure) < 140/90 Unspecified essential hypertension Acquired hypothyroidism Unspecified hypothyroidism Numbness and tingling Disturbance of skin sensation Generalized edema Edema HTN, goal below 140/90 Unspecified essential hypertension Myalgia, multiple sites Screening for deficiency anemia Screening for other and unspecified deficiency anemia documented in this encounter Care Teams Scenery Builder Relationship Specialty Start Date End Date Cinda Schneider MD [address] [place] [address] [place] [address] PCP - General Family Medicine 03/27/24 documented as of this encounter
--- OUTSIDE RECORDS SUMMARY | 2024-07-09 07:14 | External Medical Summary | Summary of Care ---
Author Name Unknown Organization [facility] Address [address] [place] [address] Phone [phone] Care Team Providers Care Remote Sensing Technologist Name Role Phone Cinda Schneider MD Primary Care Prov ider Reason for Visit * Reason Comments Outpatient Testing Encounter Details Date Type Department Care Team (Late st Contact Info) Description 04/20/2024 1:30 PM EDT Laboratory Laboratory [facility] [place] [address] [place] [address] [place], Lab Scenery [address] [place] [address] Hypertension goal BP (blood pressure) < 140/90; [...] EDT Office Visit Family Practice [facility] [place] [address] [place], [place] [address] Sonya Dacosta MD [address] [place] [address] 06/28/2024 8:30 AM EDT Imaging Cardiac Studies, [facility] [address] [place] [address] Pending Results Name Type Priority Associated Diagnoses [...] Myalgia, multiple sites 04/20/2024 1:37 PM EDT CBC Lab Routine Myalgia, multiple sites Screening for deficiency anemia 04/20/2024 1:37 PM EDT FERRIT[facility] Lab Routine [...] 03/19, 03/27/2024 TSH 03/27/2025 03/27/2024 Hgb 04/04/2025 04/04/2024, 03/19, 04/06/1997 PTH 04/04/2025 04/04/2024 Phosphate 04/04/2025 04/04/2024 Nephrology [...] anemia documented in this encounter Care Teams Remote Sensing Technologist Relationship Specialty Start Date End Date Cinda Schneider MD [address] [place] [address] [place] [phone] PCP - General Family Medicine 03/27/24 documented as of this encounter
--- OUTSIDE RECORDS SUMMARY | 2024-07-09 07:14 | External Medical Summary | Summary of Care ---
Author Name Unknown Organization [facility] Address [address] [place] [address] Phone [phone] Care Team Providers Care Assembler Seat Name Role Phone Cinda Schneider MD Primary [...] PM EDT Office Visit [facility] [address] [place] [address] Huang Stephens MD [address] [place] [address] Generalized edema*; HTN, goal below 140/90; Intermittent pain and swelling of hand; Costochondritis; Chronic kidney disease with symptom management only, stage 4 (severe) (HCC); Rib pain on right side; Acquired hypothyroidism; Myalgia, multiple sites; Numbness and tingling; Screening for deficiency anemia; Congestive heart failure, unspecified HF chronicity, unspecified heart failure type (HCC) Allergies Active Allergy Reactions Criticality Noted [...] 04/11/2024 Active Furosemide 40 MG Oral Tablet (Lasix)Indications :Generalized edema,Congestive heart failure, unspecified HF chronicity, unspecified heart failure type (HCC) Take 1 Tablet by mouth in the morning. 30 Tablet 1 04/20/2024 Active levoFLOXacin 750 MG Oral Tablet (Levaquin)Indicati ons:Abnormal chest x-ray Take 1 Tablet by mouth [...] documented in this encounter Progress Notes * Huang Stephens MD - 04/20/2024 12:41 PM EDT [...] in this encounter Nursing Notes * Conchita Mckenzie, MED ASSIST - 04/20/2024 12:36 PM EDT [...] to kidney levels. documented in this encounter Miscellaneous Notes * Addendum Note - Huang Stephens MD - 04/20/2024 5:03 PM EDTAddended by: HUANG STEPHENS on: 04/20/2024 05:03 PM Modules accepted: Orders documented in this encounter Plan of Treatment Upcoming Encounters Date Type Department Care Team (Late st Contact Info) Description 04/27/2024 8:20 AM EDT Office Visit Family Practice [facility] [address] [facility] [place] [address] Sonya Dacosta MD [address] [facility] [place] [address] 06/28/2024 8:30 AM EDT Imaging Cardiac Studies, [facility] [address] [facility] [place] [address] Pending Results Name Type Priority Associated Diagnoses [...] deficiency anemia Expected: 04/20/2024 (Approximate), Expires: 04/20/2025 BASIC METABOLIC PANEL Lab Routine Chronic kidney disease with symptom management only, stage 4 (severe) (HCC) Congestive heart failure, unspecified HF chronicity, unspecified heart failure type (HCC) Expected: 04/23/2024 (Approximate), Expires: 04/20/2025 Health Maintenance Due Date [...] Note - Kat Hernandes MD / Aura Coates DO - 04/20/2024 1:36 PM EDTThis note is [...] - 10.80 K/uL 04/20/2024 1:[address] PM EDT [address] RBC 3.98 4.50 - 5.25 M/uL 04/20/2024 1:48 PM EDT [place] [address] HGB 12.2(L) 14.0 - 16.8 g/dL 04/20/2024 1:[address]T [address] HCT 37.4(L) 40.0 - 48.4 % 04/20/2024 1:[address] PM EDT [address] MCV 94.0 82.0 - 99.5 fL 04/20/2024 1:[address]T [address] MCH 30.7 27.0 - 34.0 pg 04/20/2024 1:[address] PM EDT [address] MCHC 32.6 32.0 - 36.0 g/dL 04/20/2024 1:48 PM EDT [place] [address] RDW 14.8 11.5 - 15.5 % 04/20/2024 1:[address] PLT 257 140 - 400 K/uL 04/20/2024 1:[address] PM EDT [address] MPV 9.1 6.6 - 11.1 fL 04/20/2024 1:48 PM EDT [place] [address] Blood Venous blood specimen / Unknown Venipuncture / Unknown 04/20/2024 1:37 PM EDT 04/20/2024 1:37 PM EDT Huang Stephens MD LAB BLOOD ORDERABLES [facility] [address] [place], [place] [phone] documented in this encounter Visit Diagnoses Diagnosis [...] Screening for other and unspecified deficiency anemia Congestive heart failure, unspecified HF chronicity, unspecified heart failure type (HCC) documented in this encounter Care Teams Assembler Seat Relationship Specialty Start Date End Date Cinda Schneider MD [address] [place] [address] [place] [phone] PCP - General Family Medicine 03/27/24 documented as of this encounter
--- OUTSIDE RECORDS SUMMARY | 2024-07-09 07:14 | External Medical Summary | Summary of Care ---
Author Name Unknown Organization [facility] Address [address] [place] [address] Phone [phone] Care Team Providers Care Real Estate Job Titles Name Role Phone Cinda Schneider MD Primary Care Prov ider Reason for Visit * Reason Onset Date Comments Test Results 04/23/2024 Encounter Details Date Type Department Care Team (Late st Contact Info) Description 04/23/2024 Telephone Nephrology, [address] [address] Ellyn Rose MD [address] [place] [address] Test Results Allergies Active Allergy Reactions [...] 04/11/2024 Active Furosemide 40 MG Oral Tablet (Lasix)Indication s:Generalized edema,Congestive heart failure, unspecified HF chronicity, unspecified heart failure type (HCC) Take 1 Tablet by mouth in the morning. 30 Tablet 1 04/20/2024 Active Carvedilol 12.5 MG Oral Tablet (Coreg) Take 1.5 Tablets by mouth in the morning and 1.5 Tablets before bedtime. 270 Tablet 3 04/23/2024 Active Carvedilol 12.5 MG Oral Tablet (Coreg) Take 1 Tablet by mouth in the morning and 1 Tablet before bedtime. 04/01/2024 04/23/2024 Discontinued documented as of this encounter (statuses [...] Telephone Encounter - Ellyn Rose MD - 04/23/2024 2:11 PM EDT Called patient to discuss recent fluctuations in blood pressure. Kidney function also slightly worse likely hemodynamically mediated. Systolic between 150-170. I am increasing his Coreg to 18.75 mg twice daily. Will also check urine catecholamines and Fernando renin ratio. Dr. Rose documented in this encounter Plan of Treatment Upcoming Encounters Date Type Department Care Team (Late st Contact Info) Description 04/27/2024 8:20 AM EDT Office Visit Family Practice [facility] 200 [facility] [place] [address] Sonya Dacosta MD 200 [facility] [place] [address] 06/28/2024 8:30 AM EDT Imaging Cardiac Studies, [facility] 132 [facility] [place] [address] Scheduled Orders Name Type Priority Associated Diagnoses Orde r Schedule METANEPHRINES, FRACTIONATED, LC/MS/MS, 24-HOUR URINE Lab Routine Labile hypertension Expected: 10/20/2024 (Approximate), Expires: 04/23/2025 ALDOSTERONE/PLASMA RENIN ACTIVITY RATIO, LC/MS/MS Lab Routine Labile hypertension Expected: 04/25/2024, Expires: 04/23/2025 Health Maintenance Due Date Last Done Comments [...] as of this encounter Visit Diagnoses Diagnosis Labile hypertension- Primary Unspecified essential hypertension documented in this encounter Care Teams Real Estate Job Titles Relationship Specialty Start Date End Date Cinda Schneider MD [address] [place] [address] [place] [phone] PCP - General Family Medicine 03/27/24 documented as of this encounter
--- OUTSIDE RECORDS SUMMARY | 2024-07-09 07:14 | External Medical Summary ---
Author Name Unknown Address Unknown Organization K09:[facility] [place] [address] Laboratory Report Ordering Provider Test Date Status EAGLE ENCINAS 04/20/2024 13:37:33 Final Observation Date Value Abnormality Reference (Units ) Status WBC, Total 04/20/2024 13:37:33 8.20 4.00-10.8 0 (K/uL) Final RBC 04/20/2024 13:37:33 3.98 4.50-5.25 (M/uL) Final Hemoglobin 04/20/2024 13:37:33 12.2 Below low normal 14 .0-16.8 (g/dL) Final HCT 04/20/2024 13:37:33 37.4 Below low normal 40. 0-48.4 (%) Final MCV 04/20/2024 13:37:33 94.0 82.0-99.5 (fL) Final MCH 04/20/2024 13:37:33 30.7 27.0-34.0 (pg) Final MCHC 04/20/2024 13:37:33 32.6 32.0-36.0 (g/dL) Final RDW 04/20/2024 13:37:33 14.8 11.5-15.5 (%) Final Platelets 04/20/2024 13:37:33 257 140-400 (K /uL) Final MPV 04/20/2024 13:37:33 9.1 6.6-11.1 ( fL) Final Performing Location [facility] [place] [address]
--- OUTSIDE RECORDS SUMMARY | 2024-07-09 07:14 | External Medical Summary ---
Author Name Unknown Address Unknown Organization K09:[facility] [place] [address] Laboratory Report Ordering Provider Test Date Status EAGLE ENCINAS 04/25/2024 08:34:38 Final Observation Date Value Abnormality Reference (Units ) Status BUN 04/25/2024 08:34:38 55 Above high normal 6-20 (mg/dL) Final Creatinine 04/25/2024 08:34:38 4.8 Above high normal 0.6-1.2 (mg/dL) Final Glomerular filtration rate/1.73 sq M.predicted [Volume Rate/Area] in Serum, Plasma or Blood by Creatinine-based formula (CKD-EPI) 04/25/2024 08:34:38 14 Below low normal >=60 (mL/min) Final eGFR is calculated based on the CKD-EPI 2020 equation. Sodium 04/25/2024 08:34:38 137 135-146 (m mol/L) Final Potassium 04/25/2024 08:34:38 4.0 3.5-5.1 (m mol/L) Final Cl 04/25/2024 08:34:38 96 Below low normal 98- 107 (mmol/L) Final CO2 04/25/2024 08:34:38 24 22-32 (mmo l/L) Final Anion gap 04/25/2024 08:34:38 17 Above high normal 7- 15 (mmol/L) Final Glucose 04/25/2024 08:34:38 122 Above high normal 70 -120 (mg/dL) Final Calcium 04/25/2024 08:34:38 9.3 8.4-10.2 ( mg/dL) Final Performing Location [facility] [place] [address]
--- OUTSIDE RECORDS SUMMARY | 2024-07-09 07:14 | External Medical Summary ---
Author Name Unknown Address Unknown Organization : Laboratory Report Ordering Provider Test Date Status DEBORAH SANCHEZ 04/25/2024 08:34:38 Final Observation Date Value Abnormality Reference (Units ) Status Aldosterone 04/25/2024 08:34:38 42 (ng/ dL) Final Unable to flag abnormal resu lt(s), please refer
to reference range(s) below:
Adult Reference Ranges for Aldosterone, LC/MS/MS:
Upright 8:00 - 10:00 am < or = 28 ng/dL
Upright 4:00 - 6:00 pm < or = 21 ng/dL
Supine 8:00 - 10:00 am 3 - 16 ng/dL Renin Activity 04/25/2024 08:34:38 15.27 Above high normal 0.25-5.82 (ng/mL/h) Final Aldosterone / Renin ratio 04/25/2024 08:34:38 2.8 0.9-28.9 (Ratio) Miguelina l This test was developed and its analytical performance
characteristics have been determined by [facility]
[employer] [place], [place]. It has
not been cleared or approved by the U.S. Food and Drug
Administration. This assay has been validated pursuant
to the CLIA regulations and is used for clinical
purposes.

Test Performed at:
[facility]
[id number] [facility] [place] [address]
Marcell Wayne M.D., Ph.D.,Director of Laboratories Performing Location
--- OUTSIDE RECORDS SUMMARY | 2024-07-09 07:14 | External Medical Summary | Summary of Care ---
Author Name Unknown Organization [facility] Address [address] [place] [address] Phone [phone] Care Team Providers Care International Student Counselor Name Role Phone Cinda Schneider MD Primary Care Prov ider Reason for Visit * Reason Onset Date Comments Medication Question 04/04/2024 Encounter Details Date Type Department Care Team (Late st Contact Info) Description 04/04/2024 Telephone Nephrology, [address] [address] Ellyn Rose MD [address] [place] [address] Medication Question Allergies Active Allergy Reactions Criticality Noted Date Comments Amoxicillin Hives 02/07/2014 Nsaids Edema face/lips/tongue High 02/07/2014 Penicillins Hives 02/07/2014 documented as of this encounter (statuses as of 04/04/2024) Medications Medication Sig Dispensed Refills Start Date End Date Status levoFLOXacin 750 MG Oral Tablet (Levaquin)Indications :Abnormal chest x-ray Take 1 Tablet by mouth every other day. until gone. 5 Tablet 03/29/2024 Active Carvedilol 12.5 MG Oral Tablet (Coreg) Take 1 Tablet by mouth in the morning and 1 Tablet before bedtime. 04/01/2024 Active hydrALAZINE HCl 25 MG Oral Tablet (Apresoline) 1 Tablet in the morning and 1 Tablet at noon and 1 Tablet before bedtime. 04/01/2024 Active Levothyroxine Sodium 200 MCG Oral Tablet (Levoxyl) Take 1 Tablet by mouth in the morning. 12/28/2023 Active amLODIPine Besylate 10 MG Oral Tablet (Norvasc)Indications: Hypertension goal BP (blood pressure) < 140/90 Take 0.5 Tablets by mouth in the morning and 0.5 Tablets before bedtime. 04/02/2024 Active documented as of this encounter (statuses as of 04/04/2024) Active Problems Problem Noted Date Diagnosed Date Rib pain on right side 03/27/2024 Costochondritis 03/27/2024 documented as of this encounter (statuses as of 04/04/2024) Social History Tobacco Use Types Packs/Day Years [...] Telephone Encounter - Aaliyah Palomares RN - 04/04/2024 2:08 PM EDT Note received from [employer]. Pt wanted this provider to know he is currently taking Best Aminos andCreatine Monohydrate. He scheduled to see Dr Rose on Tuesday. documented in this encounter Plan of Treatment Upcoming Encounters Date Type Department Care Team (Late st Contact Info) Description 04/06/2024 10:00 AM EDT Office Visit Nephrology, [facility] 200 [facility] [place] [address] El[facility] [place] [address] 04/27/2024 8:20 AM EDT Office Visit Family Practice [facility] 200 [facility] [place] [address] Sonya Dacosta MD 200 [facility] [place], [place] [address] 06/28/2024 8:30 AM EDT Imaging Cardiac Studies, [facility] 132 [facility] [place] [address] Health Maintenance Due Date Last Done Comments [...] filedocumented as of this encounter Care Teams International Student Counselor Relationship Specialty Start Date End Date Cinda Schneider MD [address] [place] [address] [place] [phone] PCP - General Family Medicine 03/27/24 documented as of this encounter
--- OUTSIDE RECORDS SUMMARY | 2024-07-09 07:14 | External Medical Summary ---
Author Name Unknown Address Unknown Organization K01:[facility]ATORY [facility] - [address] [facility] [address] Laboratory Report Ordering Provider Test Date Status EAGLE ENCINAS 04/25/2024 08:55:11 Final Observation Date Value Abnormality Reference (Units) Status PARAPROTEIN NORMAL/ABNORMAL 04/25/2024 08:55:11 Normal Normal Final Protein 04/25/2024 08:55:11 7.0 6.0-8.3 (g/dL) Final Albumin/Protein.total [Pure mass fraction] in Serum or Plasma by Electrophoresis 04/25/2024 08:55:11 3.36 3.30-4.40 (g/dL) Final Alpha 1 globulin/Protein.tota l [Pure mass fraction] in Serum or Plasma by Electrophoresis 04/25/2024 08:55:11 0.21 0.10-0.30 (g/dL) Final Alpha 2 globulin/Protein.tota l [Pure mass fraction] in Serum or Plasma by Electrophoresis 04/25/2024 08:55:11 0.67 0.60-1.00 (g/dL) Final Beta globulin/Protein.tota l [Pure mass fraction] in Serum or Plasma by Electrophoresis 04/25/2024 08:55:11 0.95 0.80-1.30 (g/dL) Final Gamma globulin/Protein.tota l [Pure mass fraction] in Serum or Plasma by Electrophoresis 04/25/2024 08:55:11 1.81 Above high normal 0.70-1.70 (g/dL) Final Protein Fractions [Interpretation] in Serum or Plasma by Electrophoresis Narrative 04/25/2024 08:55:11 No paraprotein detected. There is a polyclonal increase in the gamma fraction. This finding may be seen in association with chronic inflammation, infection, chronic liver disease or collagen disorders. Final Performing Location LABORATORY [facility] - [address] [facility] [address]
--- OUTSIDE RECORDS SUMMARY | 2024-07-09 07:14 | External Medical Summary | Summary of Care ---
Author Name Unknown Organization [facility] Address [address] [place] [address] Phone [phone] Care Team Providers Care Communications Controller Name Role Phone Cinda Schneider MD Primary Care Prov ider Encounter Details Date Type Department Care Team (Late st Contact Info) Description 03/30/2024 Telephone Family Medicine [address] [address] Cinda Schneider MD [address] [place] [address] Allergies Active Allergy Reactions Criticality Noted Date Comments Amoxicillin Hives 02/07/2014 Nsaids Edema face/lips/tongue High 02/07/2014 Penicillins Hives 02/07/2014 documented as of this encounter (statuses as of 04/04/2024) Medications Medication Sig Dispensed Refills Start Date End Date Status levoFLOXacin 750 MG Oral Tablet (Levaquin)Indications: Abnormal chest x-ray Take 1 Tablet by mouth every other day. until gone. 5 Tablet 03/29/2024 Active documented as of this encounter [...] Telephone Encounter - Cinda Schneider MD - 03/30/2024 12:22 PM EDT Labs reviewed 03/29/24. Worsening renal function. Has bilat multifocal pneumonia. Called patient, reports not feeling well, notes less urine output. Advised he proceed to [facility] ER. He agreed. Please call patient to confirm admission? documented in this encounter Plan of Treatment Upcoming Encounters Date Type Department Care Team (Late st Contact Info) Description 04/06/2024 10:00 AM EDT Office Visit Nephrology, [address] [place] [address] Ellyn Rose MD [address] [facility] [place] [address] 04/27/2024 8:20 AM EDT Office Visit Family Practice [facility] [address] [place] [address] Sonya Dacosta MD [address] [place] [address] [address] 06/28/2024 8:30 AM EDT Imaging Cardiac Studies, [facility] [address] [place] [address] Health Maintenance Due Date Last Done Comments [...] 07/04/2013, 07/24/2012 TSH 03/27/2025 03/27/2024 Diabetes Screening 03/29/2027 03/29/2024, 0 03/27/2024, 03/27/2024, Additional history exists Lipid Panel 03/27/2029 [...] filedocumented as of this encounter Care Teams Communications Controller Relationship Specialty Start Date End Date Cinda Schneider MD [address] [place] [address] [place] [address] PCP - General Family Medicine 03/27/24 documented as of this encounter
--- OUTSIDE RECORDS SUMMARY | 2024-07-09 07:14 | External Medical Summary | Summary of Care ---
Author Name Unknown Organization [facility] Address [address] [place] [address] Phone [phone] Care Team Providers Care Funeral Director'S Assistant Name Role Phone Cinda Schneider MD Primary Care Prov ider Reason for Visit * Reason Onset Date Comments Advice 04/18/2024 Encounter Details Date Type Department Care Team (Late st Contact Info) Description 04/18/2024 Telephone Family Medicine [address] [address] Cinda Schneider MD [address] [place] [address] Advice Allergies Active Allergy Reactions Criticality Noted Date Comments Amoxicillin Hives 02/07/2014 Nsaids Edema face/lips/tongue High 02/07/2014 Penicillins Hives 02/07/2014 documented as of this encounter (statuses as of 04/19/2024) Medications Medication Sig Dispensed Refills Start Date End Date Status levoFLOXacin 750 MG Oral Tablet (Levaquin)Indication s:Abnormal chest x-ray Take 1 Tablet by mouth [...] as of this encounter (statuses as of 04/19/2024) Active Problems Problem Noted Date Diagnosed Date Rib pain on right side 03/27/2024 Costochondritis 03/27/2024 documented as of this encounter (statuses as of 04/19/2024) Social History Tobacco Use Types Packs/Day Years [...] Telephone Encounter - Marlyn Hilliard OSA - 04/19/2024 9:32 AM EDT Appt scheduled, pt aware. * Telephone Encounter - Alondra Damico OSA - 04/18/2024 5:42 PM EDT Patient's Ebony called about his symptoms which are becoming concerning. They include: headache, swollen legs, join pain. BP is currently at 174/103. Please call patient back and check on him (as requested by his Ebony). Thank you. documented in this encounter Plan of Treatment Upcoming Encounters Date Type Department Care Team (Late st Contact Info) Description 04/20/2024 12:20 PM EDT Office Visit General Internal Medicine [facility] 200 [facility] [place] [address] Pretty Stephens MD [address] [facility] [place] [address] 04/27/2024 8:20 AM EDT Office Visit Family Practice [facility] 200 [facility] [place] [address] Sonya Dacosta MD 200 [facility] [place] [address] 06/28/2024 8:30 AM EDT Imaging Cardiac Studies, [facility] 132 [facility] [place] [address] Health Maintenance Due Date Last Done Comments [...] filedocumented as of this encounter Care Teams Funeral Director'S Assistant Relationship Specialty Start Date End Date Cinda Schneider MD [address] [place] [address] [place] [phone] PCP - General Family Medicine 03/27/24 documented as of this encounter
--- OUTSIDE RECORDS SUMMARY | 2024-07-09 07:14 | External Medical Summary ---
Author Name Unknown Address Unknown Organization K01:[facility] - [address] [place] [address] Laboratory Report Ordering Provider Test Date Status JACY ENCINASCASSANDRA 04/20/2024 13:37:33 Final Observation Date Value Abnormality Reference (Units ) Status T4, Free 04/20/2024 13:37:33 1.6 0.9-1.7 (n g/dL) Final Performing Location [facility] [address] [facility] [address]
--- OUTSIDE RECORDS SUMMARY | 2024-07-09 07:14 | External Medical Summary | Summary of Care ---
Author Name Unknown Organization [facility] Address [address] [place] [address] Phone [phone] Care Team Providers Care Director Of Operations Name Role Phone Cinda Schneider MD Primary Care Prov ider Encounter Details Date Type Department Care Team (Late st Contact Info) Description 03/30/2024 Telephone Family Medicine [address] [address] Cinda Schneider MD [address] [place] [address] Allergies Active Allergy Reactions Criticality Noted [...] encounter Miscellaneous Notes * Telephone Encounter - Carol Ann Patel LPN - 04/06/2024 2:01 PM EDT Pt did to go to ER. Admitted & d/c * Telephone Encounter - Cinda Schneider MD - 03/30/2024 12:22 PM EDT Labs reviewed 03/29/24. Worsening renal function. Has bilat multifocal pneumonia. Called patient, reports not feeling well, notes less urine output. Advised he proceed to [facility] ER. He agreed. Please call patient to confirm admission? documented in this encounter Plan of Treatment Upcoming Encounters Date Type Department Care Team (Late st Contact Info) Description 04/27/2024 8:20 AM EDT Office Visit Family Practice [facility] [address] [place], [place] [address] Sonya Dacosta MD [address] [place] [address] 06/28/2024 8:30 AM EDT Imaging Cardiac Studies, [facility] [address] [place] [address] Health Maintenance Due Date Last Done Comments [...] filedocumented as of this encounter Care Teams Director Of Operations Relationship Specialty Start Date End Date Cinda Schneider MD [address] [place] [address] [place] [address] PCP - General Family Medicine 03/27/24 documented as of this encounter
--- OUTSIDE RECORDS SUMMARY | 2024-07-09 07:15 | External Medical Summary | Summary of Care ---
Author Name Unknown Organization [facility] Address [address] [place] [address] Phone [phone] Care Team Providers Care Tree Surgeon Helper Name Role Phone Cinda Schneider MD Primary Care Prov ider Reason for Visit * Reason Onset Date Comments Hospital Follow-Up 04/02/2024 Encounter Details Date Type Department Care Team (Late st Contact Info) Description 04/02/2024 Telephone Family Medicine [address] [phone] Cinda Schneider MD [address] [place] [address] Hospital Follow-Up Allergies Active Allergy Reactions Criticality Noted Date [...] encounter Miscellaneous Notes * Telephone Encounter - River Weaver OSA - 04/04/2024 9:06 AM EDT I spoke to pt. He is scheduled Tuesday04/06/[address] Rose at for HD. Then pt is scheduled with Dr. Dacosta at 04/27/24. Pt stated he talked to Dr. BREWSTER and she said it was fine to f/u krishna Dacosta. * Telephone Encounter - River Weaver OSA - 04/04/2024 8:29 AM EDT I called pt, no answer, no vm is set up * Telephone Encounter - Tamica Kaiser RN - 04/04/2024 7:51 AM EDT Please call pt with hosp f/up, ok for Dr Byrnes on 04/09 * Telephone Encounter - Tamica Kaiser RN - 04/04/2024 7:51 AM EDT ER/HOSPITAL FOLLOW-UP Yes Follow-up for: Hospital Visit (admitted) Date of Discharge: 03/29 - 04/01 Facility treated at: [facility] Reason for Visit: acute renal failure * Telephone Encounter - Ebony Polanco OSA - 04/02/2024 1:39 PM EDT No Appointments Available Patient declined appointments?: No What Visit Type is needed? Hospital Discharge If Acute Visit Type is needed, were surrounding clinics offered to patient (Yes/No)? N/A Was patient offered appointments with other available providers (Yes/No)? Yes See Call Details? (Yes or No): Yes documented in this encounter Plan of Treatment Upcoming Encounters Date Type Department Care Team (Late st Contact Info) Description 04/06/2024 10:00 AM EDT Office Visit Nephrology, [facility] 200 [facility] [place] [place] [address] Ellyn Rose MD [address] [place] [address] [place] [address] 04/27/2024 8:20 AM EDT Office Visit Family Practice [facility] [place] 200 Emeli [place] [place] [address] Sonya Dacosta MD 200 Em[address] [place] [place] [address] 06/28/2024 8:30 AM EDT Imaging Cardiac Studies, [facility] 132 [facility] [place] [address] Health Maintenance Due Date Last Done Comments [...] filedocumented as of this encounter Care Teams Tree Surgeon Helper Relationship Specialty Start Date End Date Cinda Schneider MD [address] [place] [address] [place] [address] PCP - General Family Medicine 03/27/24 documented as of this encounter
--- OUTSIDE RECORDS SUMMARY | 2024-07-09 07:15 | External Medical Summary ---
Author Name Unknown Address Unknown Organization K09[facility] [place] [address] Laboratory Report Ordering Provider Test Date Status EAGLE DUKE 04/04/2024 12:40:44 Final Observation Date Value Abnormality Reference (Units ) Status Bilirubin, Total 04/04/2024 12:40:44 2.1 Above high no rmal <=1.2 (mg/dL) Final Performing Location [facility] [place] [address]
--- OUTSIDE RECORDS SUMMARY | 2024-07-09 07:15 | External Medical Summary | Summary of Care ---
Author Name Unknown Organization [facility] Address [address] [place] [address] Phone [phone] Care Team Providers Care Auto Roller Name Role Phone Cinda Schneider MD Primary Care Prov ider Encounter Details Date Type Department Care Team (Late st Contact Info) Description 04/02/2024 Orders Only Outcomes Research Department [address] [place] [address] Abiola Wasserman CHRA MyCode Research Other*[id number] Allergies Active Allergy Reactions Criticality Noted Date Comments Amoxicillin Hives 02/07/2014 Nsaids Edema face/lips/tongue High 02/07/2014 Penicillins Hives 02/07/2014 documented as of this encounter (statuses as of 04/02/2024) Medications Medication Sig Dispensed Refills Start Date [...] as of this encounter (statuses as of 04/02/2024) Active Problems Problem Noted Date Diagnosed Date Rib pain on right side 03/27/2024 Costochondritis 03/27/2024 documented as of this encounter (statuses as of 04/02/2024) Social History Tobacco Use Types Packs/Day Years [...] 8:20 AM EDT Office Visit Family Practice [facility] 200 [facility] [place] [address] Sonya Dacosta MD 200 [facility] [place] [address] 06/28/2024 8:30 AM EDT Imaging Cardiac Studies, [facility] 132 [facility] [place] [address] Scheduled Orders Name Type Priority Associated Diagnoses Orde r Schedule MYCODE SUBSEQUENT ADULT Lab Routine MyCode Research Other*[id number] Every 6 Months for 2 Occurrences starting 04/02/2024 until 04/22/2025 Health Maintenance Due Date Last Done Comments Depression Screening 1982 DTaP,Tdap,and Td Vaccines (1 - Tdap) 1989 Hepatitis B Vaccine (1 of 3 - 19+ 3-dose series) 1989 Cologuard 11/26/2015 Colonoscopy 11/26/2015 Colorectal Cancer Screening 11/26/2015 Fecal Occult Blood Test 11/26/2015 Sigmoidoscopy 11/26/2015 Zoster Vaccines (1 of 2) 2020 COVID-19 Vaccine ( season) 2023 Influenza Vaccine (FLU shot) (#1) [...] this encounter Visit Diagnoses Diagnosis MyCode Research Other*[id number] documented in this encounter Care Teams Auto Roller Relationship Specialty Start Date End Date Cinda Schneider MD [address] [place] [address] [place] [phone] PCP - General Family Medicine 03/27/24 documented as of this encounter
--- OUTSIDE RECORDS SUMMARY | 2024-07-09 07:15 | External Medical Summary ---
Author Name Unknown Address Unknown Organization K09:[facility] [place] [address] Laboratory Report Ordering Provider Test Date Status JACY DUKECASSANDRA 04/04/2024 12:40:44 Final Observation Date Value Abnormality Reference (Units ) Status Bilirubin, Direct 04/04/2024 12:40:44 0.3 0. 0-0.3 (mg/dL) Final Performing Location [facility] [place] [address]
--- OUTSIDE RECORDS SUMMARY | 2024-07-09 07:15 | External Medical Summary | Summary of Care ---
Author Name Unknown Organization [facility] Address [address] [place] [address] Phone [phone] Care Team Providers Care Surveillance Systems Engineer Name Role Phone Cinda Schneider MD Primary Care Prov ider Reason for Visit * Reason Comments Outpatient Testing Encounter Details Date Type Department Care Team (Late st Contact Info) Description 04/04/2024 12:40 PM EDT Laboratory Laboratory [facility] [place] [address] [place] [address] [place], Lab Scenery [address] [place] [address] VENKAT (acute kidney injury) (HCC); HTN, goal below 140/90 Allergies Active Allergy [...] Nephrology, Emeli Davison [address] [place] [address] [address] Ellyn Rose MD [address] [place] [address] 04/27/2024 8:20 AM EDT Office Visit Family Practice [facility] [address] [place] [address] [address] [address] Sonya Dacosta MD [address] [place] [address] 06/28/2024 8:30 AM EDT Imaging Cardiac Studies, [facility] [address] [place] [address] Pending Results Name Type Priority Associated Diagnoses Date /Time CBC Lab Routine VENKAT (acute kidney injury) (HCC) HTN, goal below 140/90 04/04/2024 12:40 PM EDT RENAL FUNCTION PANEL Lab Routine VENKAT (acute kidney injury) ([facility]) HTN, goal below 140/90 04/04/2024 12:40 PM EDT PTH Lab Routine VENKAT (acute kidney injury) (HCC) HTN, goal below 140/90 04/04/2024 12:40 PM EDT ALKALINE PHOSPHATASE Lab Routine VENKAT (acute kidney injury) ([facility]) HTN, goal below 140/90 04/04/2024 12:40 PM EDT PROTEIN Lab Routine VENKAT (acute kidney injury) (HCC) HTN, goal below 140/90 04/04/2024 12:40 PM EDT AST Lab Routine VENKAT (acute kidney injury) (HCC) HTN, goal below 140/90 04/04/2024 12:40 PM EDT ALT Lab Routine VENKAT (acute kidney injury) (HCC) HTN, goal below 140/90 04/04/2024 12:40 PM EDT BILIRUBIN, DIRECT Lab Routine VENKAT (acute kidney injury) (HCC) HTN, goal below 140/90 04/04/2024 12:40 PM EDT BILIRUBIN, TOTAL Lab Routine VENKAT (acute kidney injury) (HCC) HTN, goal below 140/90 04/04/2024 12:40 PM EDT URINALYSIS WITH MICROSCOPIC EXAM Lab Routine VENKAT (acute kidney injury) ([facility]) HTN, goal below 140/90 04/04/2024 12:43 PM EDT Health Maintenance Due Date Last Done Comments Depression Screening 1982 DTaP,Tdap,and Td Vaccines (1 - Tdap) 1989 Hepatitis B Vaccine (1 of 3 - 19+ 3-dose series) 1989 Cologuard 11/26/2015 Colonoscopy 11/26/2015 Colorectal Cancer Screening 11/26/2015 Fecal Occult Blood Test 11/26/2015 Sigmoidoscopy 11/26/2015 Zoster Vaccines (1 of 2) 2020 COVID-19 Vaccine ( - season) 2023 Influenza Vaccine (FLU shot) [...] as of this encounter Visit Diagnoses Diagnosis VENKAT (acute kidney injury) (HCC) Acute kidney failure, unspecified HTN, goal below 140/90 Unspecified essential hypertension documented in this encounter Care Teams Surveillance Systems Engineer Relationship Specialty Start Date End Date Cinda Schneider MD [address] [place] [address] [place] [address] PCP - General Family Medicine 03/27/24 documented as of this encounter
--- OUTSIDE RECORDS SUMMARY | 2024-07-09 07:15 | External Medical Summary | Summary of Care ---
Author Name Unknown Organization [facility] Address [address] [facility] [place] [address] Phone [phone] Care Team Providers Care Pharmacy Technologist Name Role Phone Cinda Schneider MD Primary Care Prov ider Encounter Details Date Type Department Care Team (Late st Contact Info) Description 04/04/2024 Orders Only PATIENT PORTAL DO NOT DELETE THIS DEPT USED BY K[place] MARINELLI [id number] Allergies Active Allergy Reactions Criticality Noted Date [...] Nephrology, [facility] [address] [place] [address] [address] Ellyn Rose MD [address] [place] [address] 04/27/2024 8:20 AM EDT Office Visit Family Practice [facility] [place] [address] [place] [address] [address] Sonya Dacosta MD [address] [address] 06/28/2024 8:30 AM EDT Imaging Cardiac Studies, [facility] [address] [place] [address] Health Maintenance Due Date Last Done Comments [...] filedocumented as of this encounter Care Teams Pharmacy Technologist Relationship Specialty Start Date End Date Cinda Schneider MD [address] [place] [address] [place] [address] PCP - General Family Medicine 03/27/24 documented as of this encounter
--- OUTSIDE RECORDS SUMMARY | 2024-07-09 07:15 | External Medical Summary ---
Author Name Unknown Address Unknown Organization K09:[facility] [place] [address] Laboratory Report Ordering Provider Test Date Status SRIKANTHJACYCASSANDRA 04/04/2024 12:40:44 Final Observation Date Value Abnormality Reference (Units ) Status AST (Aspartate aminotransferase) 04/04/2024 12:40:44 37 10-50 (U/L) Final Performing Location [facility] [place] [address]
--- OUTSIDE RECORDS SUMMARY | 2024-07-09 07:15 | External Medical Summary | Summary of Care ---
Author Name Unknown Organization [facility] Address [address] [place] [facility] [place] [address] Phone [phone] Care Team Providers Care Product Design Engineer Name Role Phone Cinda Schneider MD Primary Care Prov ider Reason for Visit * Reason Onset Date Comments Hospital Follow-Up 04/02/2024 Tiffany for [facility] Encounter Details Date Type Department Care Team (Late st Contact Info) Description 04/02/2024 [address]phone [address] [place] [phone] Joycelyn Chapman, AV Hospital Follow-Up (Tiffany for [facility]) Allergies Active Allergy Reactions Criticality Noted Date Comments Amoxicillin Hives 02/07/2014 Nsaids Edema face/lips/tongue High 02/07/2014 Penicillins Hives 02/07/2014 documented as of this encounter (statuses as of 04/02/2024) Medications Medication Sig Dispensed Refills Start Date End Date Status levoFLOXacin 750 MG Oral Tablet (Levaquin)Indica tions:Abnormal chest x-ray Take 1 Tablet by mouth [...] and 0.5 Tablets before bedtime. 04/02/2024 Active levothyroxine (LEVOXYL) 175 MCG Tablet Take 175 mcg by mouth daily. 3 12/24/2016 4 Discontinued(Medi cation List Clean Up) amLODIPine Besylate 10 MG Oral Tablet (Norvasc)Indicat ions:Hypertensio n goal BP (blood pressure) < 140/90 Take 0.5 Tablets by mouth in the morning. 30 Tablet 5 03/29/2024 4 Discontinued documented as of this encounter [...] encounter Miscellaneous Notes * Telephone Encounter - Joycelyn Chapman RN - 04/02/2024 4:05 PM EDT Transitions of Care Note Reason for Referral:Recent Admission Phone visit for follow up: tiffany Admitted to: [facility], Date: 03.29.24 Discharged to: home , Date: 04.01.24 Diagnosis driving hospitalization: Acute renal failure Hypertensive urgency Multifocal pneumonia Diastolic heart failure Source/Contact: Patient SUBJECTIVE Consent: Verbal consent for review of hospital discharge: Yes REVIEW OF SYSTEMS Patient/Other Reports: Current patient/caregiver problems or concerns: none CV: Denies problems Pulmonary: Denies problems, did notice one episode of productive cough this morning, phlem creamy colored slight yellow Chills/Sweats/Fever:Denies chills/sweats Denies fever Appetite:Denies problems such as nausea, vomiting, burning, decreased appetite Current diet: reg Bowel: denies problems Bladder: denies problems Wound (If applicable): N/A Pain:Denies Sleep:Denies problems FUNCTIONAL STATUS: ADL'S: Needs Assistance With:N/A as pt is independent IADL'S: Needs Assistance With:N/A as pt is independent Cognitive and Mental Health: denies problems, alert and oriented x 3, and able to communicate, understand instructions, process information. MEDICATION RECONCILIATION Medications: Reports all medications taken as prescribed. New carvedilol 12.5 mg Tablet 12.5 mg PO BIDM Qty: 60 0RF hydralazine 25 mg Tablet 25 mg PO TID 30 Days Qty: 90 0RF Changed amlodipine 10 mg Tablet 5 mg PO BID Qty: 60 0RF OBJECTIVE ASSESSMENT Medication Risk Assessment: No risks identified Did patient fail outpatient treatment? No Discharge instructions available for review? Yes PLAN Symptom Monitoring Interventions:Member/caregiver education - signs and symptoms to contact PrimaryCare (DO NOT DELETE-Three monique symptoms patient is to report to PCP) 1. Chest pain 2. sob 3. fevers Motor Home Electrical ForemanCaramel Maker of Care interventions/Action Plan: Patient states Dr. BREWSTER said patient would be able to follow up in [place] since it is closer to patient,patient will be seeing Dr. Long on 04/06 and will see if he should make a sooner appointment . Patient is already scheduled for Dr. Dacosta on 04/27. Patient was unsure if he was to scheduled with anIM doc? Patient is getting labs done prior to appointment Educated on role of TIFFANY completed with patient/caregiver. Educated patient/caregiver on patient right to have input on TIFFANY plan of care. Verification of Home Health/DME if indicated: NO Identified Care Gaps: Yes Care Gaps closed this call: Transition of Care follow-up communication Re-evaluation of Plan of Care and progress towards goals achievement: Patient education this visit: Verbal, patient to log BP, stay away from sodium. Plan to follow-up as previously scheduled, instructed to call Primary Care Provider with change in symptoms or as needed before next follow-up, verbalizes understanding and agrees with plan. Monitor your blood pressure regularly at home. Discuss with your physician for further adjustment of medications as needed. Patient is getting blood work done prior to appointment on 04/06, orders in epic to monitoring your renal function. --Get repeat Thyroid Function test in 3-4 weeks as advised --Complete the antibiotic Levaquin course as prescribed --Your final blood/Sputum cultures are pending at the time of discharge. Follow up with your physician for results. Joycelyn Chapman RN documented in this encounter Plan of Treatment Upcoming Encounters Date Type Department Care Team (Late st Contact Info) Description 04/06/2024 10:00 AM EDT Office Visit Nephrology, [facility] 200 [facility] [place] [address] Ellyn Rose MD [address] [place] [address] [place] [address] 04/27/2024 8:20 AM EDT Office Visit Family Practice [facility] 200 Emeli [place] [place] [address] Sonya Dacosta MD 200 [facility] [place] [address] 06/28/2024 8:30 AM EDT Imaging Cardiac Studies, [facility] 132 [facility] [place] [address] Health Maintenance Due Date Last Done Comments [...] documented in this encounter Care Teams Product Design Engineer Relationship Specialty Start Date End Date Cinda Schneider MD [address] [place] [address] [place] [address] PCP - General Family Medicine 03/27/24 documented as of this encounter
--- OUTSIDE RECORDS SUMMARY | 2024-07-09 07:15 | External Medical Summary | Summary of Care ---
Author Name Unknown Organization [facility] Address [address] [place] [address] Phone [phone] Care Team Providers Care Health Coordinator Name Role Phone Cinda Schneider MD Primary Care Prov ider Reason for Visit * Reason Comments Outpatient Testing Encounter Details Date Type Department Care Team (Late st Contact Info) Description 04/04/2024 12:40 PM EDT Laboratory Laboratory [facility] [place] [address] [place] [address] [place], Lab Scenery [address] [place] [address] VENKAT (acute kidney injury) (HCC); HTN, goal [...] Nephrology, [facility] [address] [place] [address] [address] Ellyn Rose MD [address] [place] [address] 04/27/2024 8:20 AM EDT Office Visit Family Practice [facility] [address] [place] [address] [address] Sonya Dacosta MD [address] [place] [address] 06/28/2024 8:30 AM EDT Imaging Cardiac Studies, [facility] [address] [place] [address] Pending Results Name Type Priority Associated Diagnoses Date /Time RENAL FUNCTION PANEL Lab Routine VENKAT (acute kidney injury) ([facility]) HTN, goal below 140/90 04/04/2024 12:40 PM EDT PTH Lab Routine VENKAT (acute kidney injury) ([facility]) HTN, goal below 140/90 04/04/2024 12:40 PM EDT ALKALINE PHOSPHATASE Lab Routine VENKAT (acute kidney injury) ([facility]) HTN, goal below 140/90 04/04/2024 12:40 PM EDT PROTEIN Lab Routine VENKAT (acute kidney injury) ([facility]) HTN, goal below 140/90 04/04/2024 12:40 PM EDT AST Lab Routine VENKAT (acute kidney injury) ([facility]) HTN, goal below 140/90 04/04/2024 12:40 PM EDT ALT Lab Routine VENKAT (acute kidney injury) ([facility]) HTN, goal below 140/90 04/04/2024 12:40 PM EDT BILIRUBIN, DIRECT Lab Routine VENKAT (acute kidney injury) ([facility]) HTN, goal below 140/90 04/04/2024 12:40 PM EDT BILIRUBIN, TOTAL Lab Routine VENKAT (acute kidney injury) ([facility]) HTN, goal below 140/90 04/04/2024 12:40 PM EDT URINALYSIS WITH MICROSCOPIC EXAM Lab Routine VENKAT (acute kidney injury) ([facility]) HTN, goal below 140/90 04/04/2024 12:43 PM EDT PROTEIN/ CREATININE RATIO, URINE Lab Routine VENKAT (acute kidney injury) ([facility]) HTN, goal below 140/90 04/04/2024 12:43 PM EDT URINE IMMUNOFIXATION, BENCE PIMENTEL PROTEIN, RANDOM URINE Lab Routine VENKAT (acute kidney injury) ([facility]) HTN, goal below 140/90 04/04/2024 12:43 PM [...] Priority Date/Time Associated Diagnosis Comments CBC Routine 04/04/2024 12:40 PM EDT VENKAT (acute kidney injury) (HCC) HTN, goal below 140/90 documented in this encounter Results * (ABNORMAL) CBC (04/04/2024 12:40 PM EDT) WBC 9.45 4.00 - 10.80 K/uL 04/04/2024 12:48 PM EDT [facility] [place] 56-02 RBC 4.01 4.50 - 5.25 M/uL 04/04/2024 12:48 PM EDT LAB[facility]ORY [place] 56-02 HGB 12.6(L) 14.0 - 16.8 g/dL 04/04/2024 12:48 PM EDT [facility]ORY [place] 56-02 HCT 37.7(L) 40.0 - 48.4 % 04/04/2024 12:48 PM EDT [facility] MCV 94.0 82.0 - 99.5 fL 04/04/2024 12:48 PM EDT [facility] MCH 31.4 27.0 - 34.0 pg 04/04/2024 12:48 PM EDT [facility] MCHC 33.4 32.0 - 36.0 g/dL 04/04/2024 12:48 PM EDT [place] [address] RDW 15.2 11.5 - 15.5 % 04/04/2024 12:48 PM EDT [facility] 56 PLT 217 140 - 400 K/uL 04/04/2024 12:48 PM EDT [place] [address] MPV 9.4 6.6 - 11.1 fL 04/04/2024 12:48 PM EDT [facility] Blood Venous blood specimen / Unknown Venipuncture / Unknown 04/04/2024 12:40 PM EDT 04/04/2024 12:40 PM EDT Juliano Stephens MD LAB BLOOD ORDERABLES [facility] [address] [place] [address] documented in this encounter Visit Diagnoses Diagnosis VENKAT (acute kidney injury) (HCC) Acute kidney failure, unspecified HTN, goal below 140/90 Unspecified essential hypertension documented in this encounter Care Teams Health Coordinator Relationship Specialty Start Date End Date Cinda Schneider MD [address] [place] [address] [place] [address] PCP - General Family Medicine 03/27/24 documented as of this encounter
--- OUTSIDE RECORDS SUMMARY | 2024-07-09 07:15 | External Medical Summary ---
Author Name Unknown Address Unknown Organization K09:[facility] [place] [address] Laboratory Report Ordering Provider Test Date Status EAGLE DUKE 04/04/2024 12:40:44 Final Observation Date Value Abnormality Reference (Units ) Status BUN 04/04/2024 12:40:44 33 Above high normal 6-20 (mg/dL) Final Creatinine 04/04/2024 12:40:44 2.7 Above high normal 0.6-1.2 (mg/dL) Final Glomerular filtration rate/1.73 sq M.predicted [Volume Rate/Area] in Serum, Plasma or Blood by Creatinine-based formula (CKD-EPI) 04/04/2024 12:40:44 27 Below low normal >=60 (mL/min) Final eGFR is calculated based on the CKD-EPI 2020 equation. Sodium 04/04/2024 12:40:44 132 Below low normal 135 -146 (mmol/L) Final Potassium 04/04/2024 12:40:44 3.8 3.5-5.1 (m mol/L) Final Cl 04/04/2024 12:40:44 98 98-107 (mm ol/L) Final CO2 04/04/2024 12:40:44 23 22-32 (mmo l/L) Final Anion gap 04/04/2024 12:40:44 11 7-15 (mmol /L) Final Glucose 04/04/2024 12:40:44 118 70-120 (mg /dL) Final Calcium 04/04/2024 12:40:44 8.5 8.4-10.2 ( mg/dL) Final Albumin 04/04/2024 12:40:44 3.8 3.8-5.0 (g /dL) Final Phosphate 04/04/2024 12:40:44 3.8 2.5-4.8 (m g/dL) Final Performing Location [facility] [place] [address]
--- OUTSIDE RECORDS SUMMARY | 2024-07-09 07:15 | External Medical Summary ---
Author Name Unknown Address Unknown Organization K01:[facility] [address] [place] [address] Laboratory Report Ordering Provider Test Date Status EAGLE DUKE 04/04/2024 12:40:44 Final Observation Date Value Abnormality Reference (Units ) Status Parathyrin.intact [Mass/volume] in Serum or Plasma 04/04/2024 12:40:44 93 Above high normal 15-65 (pg/mL) Final Performing Location [facility] - [address] [place] [address]
--- OUTSIDE RECORDS SUMMARY | 2024-07-09 07:15 | External Medical Summary ---
Author Name Unknown Address Unknown Organization [id number]:[facility] [place] [address] Laboratory Report Ordering Provider Test Date Status EAGLE DUKE 04/04/2024 12:40:44 Final Observation Date Value Abnormality Reference (Units ) Status WBC, Total 04/04/2024 12:40:44 9.45 4.00-10.8 0 (K/uL) Final RBC 04/04/2024 12:40:44 4.01 4.50-5.25 (M/uL) Final Hemoglobin 04/04/2024 12:40:44 12.6 Below low normal 14 .0-16.8 (g/dL) Final HCT 04/04/2024 12:40:44 37.7 Below low normal 40. 0-48.4 (%) Final MCV 04/04/2024 12:40:44 94.0 82.0-99.5 (fL) Final MCH 04/04/2024 12:40:44 31.4 27.0-34.0 (pg) Final MCHC 04/04/2024 12:40:44 33.4 32.0-36.0 (g/dL) Final RDW 04/04/2024 12:40:44 15.2 11.5-15.5 (%) Final Platelets 04/04/2024 12:40:44 217 140-400 (K /uL) Final MPV 04/04/2024 12:40:44 9.4 6.6-11.1 ( fL) Final Performing Location [facility] [place] [address]
--- OUTSIDE RECORDS SUMMARY | 2024-07-09 07:15 | External Medical Summary ---
Author Name Unknown Address Unknown Organization K01:[facility] [place] [address] [place] [address] Laboratory Report Ordering Provider Test Date Status EAGLE DUKE 04/04/2024 12:43:24 Final Observation Date Value Abnormality Reference (Units) Status PARAPROTEIN NORMAL/ABNORMAL 04/04/2024 12:43:24 Normal Normal Final Protein, Urine 04/04/2024 12:43:24 52 (mg/dL) Final Immunofixation for Urine Narrative 04/04/2024 12:43:24 No monoclonal free light chains present (Bence Pimentel protein), in a background of glomerular proteinuria. Final Performing Location [facility] [place] [address] [place] [address]
--- OUTSIDE RECORDS SUMMARY | 2024-07-09 07:15 | External Medical Summary ---
Author Name Unknown Address Unknown Organization K09:[facility] [place] [address] Laboratory Report Ordering Provider Test Date Status EAGLE DUKE 04/04/2024 12:40:44 Final Observation Date Value Abnormality Reference (Units ) Status Protein 04/04/2024 12:40:44 5.8 Below low normal 6.0 -8.3 (g/dL) Final Performing Location [facility] [place] [address]
--- OUTSIDE RECORDS SUMMARY | 2024-07-09 07:15 | External Medical Summary ---
Author Name Unknown Address Unknown Organization K09:[facility] [place] [address] Laboratory Report Ordering Provider Test Date Status EAGLE DUKE 04/04/2024 12:40:44 Final Observation Date Value Abnormality Reference (Units ) Status Alk Phos 04/04/2024 12:40:44 51 35-130 (U/ L) Final Performing Location [facility] [place] [address]
--- OUTSIDE RECORDS SUMMARY | 2024-07-09 07:15 | External Medical Summary | Summary of Care ---
Author Name Unknown Organization [facility] Address [address] [place] [address] Phone [phone] Care Team Providers Care Manager Home Name Role Phone Cinda Schneider MD Primary Care Prov ider Reason for Visit * Reason Onset Date Comments Medication Refill 03/29/2024 Encounter Details Date Type Department Care Team (Late st Contact Info) Description 03/28/2024 Refill Family Medicine [address] [phone] Cinda Schneider MD [address] [place] [id number] Abnormal chest x-ray*; Hypertension goal BP (blood pressure) < 140/90 Allergies Active Allergy Reactions Criticality Noted Date Comments Amoxicillin Hives 02/07/2014 Nsaids Edema face/lips/tongue High 02/07/2014 Penicillins Hives 02/07/2014 documented as of this encounter (statuses as of 04/04/2024) Medications Medication Sig Dispensed Refills Start Date End Date Status levoFLOXacin 750 MG Oral Tablet (Levaquin)Indica tions:Abnormal chest x-ray Take 1 Tablet by mouth every other day. until gone. 5 Tablet 03/29/2024 Active levothyroxine (LEVOXYL) 175 MCG Tablet Take 175 mcg by mouth daily. 3 12/24/2016 4 Discontinued(Medi cation List Clean Up) hydroCHLOROthiaz margarita 25 MG Oral Tablet (Hydrodiuril)Ind ications:Hyperte nsion goal BP (blood pressure) < 140/90 Take 1 Tablet by mouth in the morning. 30 Tablet 5 03/27/2024 4 Discontinued levoFLOXacin 750 MG Oral Tablet (Levaquin)Indica tions:Abnormal chest x-ray Take 1 Tablet by mouth every other day for 10 days. until gone. 5 Tablet 03/28/2024 4 Discontinued amLODIPine Besylate 10 MG Oral [...] as of this encounter Progress Notes * Cinda Schneider MD - 03/28/2024 10:13 AM EDT Abnormal abnormal findings on chest x-ray suggestive of multifocal pneumonia. Also impaired kidney function with GFR 30 creatinine 2.2. Please call patient to let them know I have called in prescription for levofloxacin to treat pneumonia to take 1 tablet every 2 days. He needs to repeat blood workon Tuesday. And he needs follow-up appointment in clinic with me or advanced practitioner early nextweek. He will need repeat chest x-ray at follow-up. He is also advised her shortness of breath worsening he needs to go to the hospital. documented in this encounter Miscellaneous Notes * Telephone Encounter - River Weaver OSA - 04/04/2024 9:24 AM EDT Pt has appts scheduled w/ Nephrology and also scheduled to see Dr. Dacosta at * Telephone Encounter - Cinda Schneider MD - 03/29/2024 10:11 AM EDT Phone call to patient. States he was surprised to see that he has pneumonia. Recalls he has had a cough and fatigue for 2-3 months. More concerned about swelling in his hands. Also noting back pain x 1 year. Denies h/o kidney problems. Denies urinary concerns; does note decreased urine production. Advised him not to take HCTZ. Replace with amlodipine. Repeat labs today. If feeling worse, go to ER. Stay home from work x 1 week. 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 Delete work phone . Schedule acute follow up with me or any provider early next week (medically necessary). * Telephone Encounter - Cinda Schneider MD - 03/29/2024 8:16 AM EDT Multifocal pneumonia. Reduced GFR. Rx levoquin renally dosed. Repeat labs TODAY () and CXR in 1 week. To ER if worsening. * Telephone Encounter - Kulwinder Golden MD - 03/28/2024 1:05 PM EDT Signed Prescriptions: Disp Refills levoFLOXacin 750 MG Oral Tablet (Levaquin) 5 Tabl*0 Sig: Take 1 Tablet by mouth every other day for 10 days. until gone. Authorizing Provider: KULWINDER GOLDEN * Telephone Encounter - Betty Higgins LPN - 03/28/2024 8:21 AM EDT [place] [facility] called reporting significant abnormal findings on yesterday's Xray. documented in this encounter Plan of Treatment Upcoming Encounters Date Type Department Care Team (Late st Contact Info) Description 04/06/2024 10:00 AM EDT Office Visit Nephrology, [facility] [address] [place] [address] Ellyn Rose MD [address] [place] [address] [place] [address] 04/27/2024 8:20 AM EDT Office Visit Family Practice [facility] [address] [place] [address] [address] Sonya Dacosta MD [address] [place] [address] 06/28/2024 8:30 AM EDT Imaging Cardiac Studies, [facility] [address] [facility] [place] [address] Scheduled Orders Name Type Priority Associated Diagnoses Orde r Schedule XR CHEST 2 VIEWS Medical Imaging Routine Abnormal chest x-ray Expected: 04/05/2024, Expires: 04/29/2025 Health Maintenance Due Date Last Done Comments [...] Procedure Name Priority Date/Time Associated Diagnosis Comments DIFFERENTIAL, AUTOMATED STAT 03/29/2024 11:31 AM EDT Abnormal chest x-ray BASIC METABOLIC PANEL STAT 03/29/2024 11:31 AM EDT Abnormal chest x-ray CBC STAT 03/29/2024 11:31 AM EDT Abnormal chest x-ray CBC STAT 03/29/2024 11:31 AM EDT Abnormal chest x-ray documented in this encounter Results * (ABNORMAL) DIFFERENTIAL, AUTOMATED (03/29/2024 11:31 AM EDT) WBC 8.90 4.00 - 10.80 K/uL 03/29/2024 11:38 AM EDT [facility] [place] [facility] Neutrophils % 75.9(H) 40.0 - 75.0 % 03/29/2024 11:38 AM EDT [facility] [place] [facility] Lymphocytes % 10.1(L) 18.0 - 42.0 % 03/29/2024 11:38 AM EDT [facility] [place] [facility] Monocytes % 11.1(H) 1.0 - 11.0 % 03/29/2024 11:38 AM EDT [facility] [place] [facility] Eosinophils % 2.1 0.0 - 6.0 % 03/29/2024 11:38 AM EDT [facility] [place] [facility] Basophils % 0.8 0.0 - 2.0 % 03/29/2024 11:38 AM EDT [facility] [place] [facility] Absolute Neutrophils 6.75 1.80 - 7.70 K/uL 03/29/2024 11:38 AM EDT [facility] [place] [facility] Absolute Lymphocytes 0.90(L) 1.00 - 4.80 K/ul 03/29/2024 11:38 AM EDT [facility] [place] [facility] Absolute Monocytes 0.99 0.00 - 1.10 K/uL 03/29/2024 11:38 AM EDT [facility] [place] [facility] Absolute Eosinophils 0.19 0.00 - 0.70 K/uL 03/29/2024 11:38 AM EDT [facility] [place] [facility] Absolute Basophils 0.07 0.00 - 0.20 K/uL 03/29/2024 11:38 AM EDT [facility] [place] [facility] Blood Venous blood specimen / Unknown Venipuncture / Unknown 03/29/2024 11:31 AM EDT 03/29/2024 11:31 AM EDT Cinda Green MD LAB BLOOD ORDERABLES [facility] [place] [facility]10 [address] [address] * (ABNORMAL) CBC (03/29/2024 11:31 AM EDT) WBC 8.90 4.00 - 10.80 K/uL 03/29/2024 11:38 AM EDT [facility] [place] [facility] RBC 4.37 4.50 - 5.25 M/uL 03/29/2024 11:38 AM EDT [facility] [place] [facility] HGB 13.5(L) 14.0 - 16.8 g/dL 03/29/2024 11:38 AM EDT [facility] [place] [facility] HCT 40.9 40.0 - 48.4 % 03/29/2024 11:38 AM EDT [facility] [place] [facility] MCV 93.6 82.0 - 99.5 fL 03/29/2024 11:38 AM EDT [facility] [place] [facility] MCH 30.9 27.0 - 34.0 pg 03/29/2024 11:38 AM EDT [facility] [place] [facility] MCHC 33.0 32.0 - 36.0 g/dL 03/29/2024 11:38 AM EDT [facility] [place] [facility] RDW 14.8 11.5 - 15.5 % 03/29/2024 11:38 AM EDT [facility] [place] [facility]10 PLT 182 140 - 400 K/uL 03/29/2024 11:38 AM EDT [facility] [place] [facility] MPV 9.2 6.6 - 11.1 fL 03/29/2024 11:38 AM EDT [facility] [place] [facility] Blood Venous blood specimen / Unknown Venipuncture / Unknown 03/29/2024 11:31 AM EDT 03/29/2024 11:31 AM EDT Cinda Green MD LAB BLOOD ORDERABLES [facility] [place] [id number] [place] [address] * (ABNORMAL) BASIC METABOLIC PANEL (03/29/2024 11:31 AM EDT) BUN 27(H) 6 - 20 mg/dL 03/29/2024 12:00 PM EDT [facility] Creatinine 2.5(H) 0.6 - 1.2 mg/dL 03/29/2024 12:00 PM EDT [facility] Estimated Glomerular Filtration Rate 31(L) >=60 mL/min 03/29/2024 12:00 PM EDT [facility] [place] [facility] Comment:eGFR is calculated b ased on the CKD-EPI 2020 equation Sodium 134(L) 135 - 146 mmol/L 03/29/2024 12:00 PM EDT [facility] Potassium 3.8 3.5 - 5.1 mmol/L 03/29/2024 12:00 PM EDT [facility] [place] 57-10 Chloride 95(L) 98 - 107 mmol/L 03/29/2024 12:00 PM EDT [facility] [place] [facility]10 CO2 26 22 - 32 mmol/L 03/29/2024 12:00 PM EDT [facility] [place] [facility]10 Anion Gap 13 7 - 15 mmol/L 03/29/2024 12:00 PM EDT [facility] [place] [facility]10 Glucose 113 70 - 120 mg/dL 03/29/2024 12:00 PM EDT [facility] [place] [facility]10 Calcium 9.3 8.4 - 10.2 mg/dL 03/29/2024 12:00 PM EDT [facility] [place] [facility]10 Blood Venous blood specimen / Unknown Venipuncture / Unknown 03/29/2024 11:31 AM EDT 03/29/2024 11:31 AM EDT Cinda Green MD LAB BLOOD ORDERABLES [facility] [place] [facility]10 [address] [place] [address] documented in this encounter Visit Diagnoses Diagnosis Abnormal chest x-ray- Primary Other nonspecific abnormal finding of lung field Hypertension goal BP (blood pressure) < 140/90 Unspecified essential hypertension documented in this encounter Care Teams Manager Home Relationship Specialty Start Date End Date Cinda Schneider MD [address] [place] [address] [place] [address] PCP - General Family Medicine 03/27/24 documented as of this encounter
--- OUTSIDE RECORDS SUMMARY | 2024-07-09 07:15 | External Medical Summary ---
Author Name Unknown Address Unknown Organization K09:[facility] [place] [facility]02 - [address] [place] [address] Laboratory Report Ordering Provider Test Date Status EAGLE DUKE 04/04/2024 12:43:24 Final Observation Date Value Abnormality Reference (Units ) Status Color of Urine by Auto 04/04/2024 12:43:24 Yellow Light Yellow, Yellow, Dark Yellow Final Clarity, Urine 04/04/2024 12:43:24 Clear Clear Final Glucose [Mass/volume] in Urine by Automated test strip 04/04/2024 12:43:24 Negative Negative (mg/dL) Final Bilirubin.total [Presence] in Urine by Automated test strip 04/04/2024 12:43:24 Negative Negative Final Ketones [Mass/volume] in Urine by Automated test strip 04/04/2024 12:43:24 Negative Negative (mg/dL) Final Specific gravity, Urine 04/04/2024 12:43:24 1.025 1.003-1.030 Final Hemoglobin [Presence] in Urine by Automated test strip 04/04/2024 12:43:24 Negative Negative Final pH, Urine 04/04/2024 12:43:24 5.5 5.0-7.5 (Units) Final Protein [Mass/volume] in Urine by Automated test strip 04/04/2024 12:43:24 100 Abnormal Negative (mg/dL) Final Urobilinogen [Mass/volume] in Urine by Automated test strip 04/04/2024 12:43:24 0.2 0.2, 1.0 (mg/dL) Final Nitrite [Presence] in Urine by Automated test strip 04/04/2024 12:43:24 Negative Negative Final Leukocyte esterase [Presence] in Urine by Automated test strip 04/04/2024 12:43:24 Negative Negative Final RBC, Urine 04/04/2024 12:43:24 0-2 0-2 (/HPF) Final WBC, Urine 04/04/2024 12:43:24 0-2 0-2 (/HPF) Final Bacteria [#/area] in Urine sediment by Microscopy high power field 04/04/2024 12:43:24 0-25 0-25 (/HPF) Final Granular casts [#/area] in Urine sediment by Microscopy low power field 04/04/2024 12:43:24 1-4 Abnormal None (/LPF) Final Performing Location [facility] [place] [facility] - [address] [place] [address]
--- OUTSIDE RECORDS SUMMARY | 2024-07-09 07:15 | External Medical Summary | Summary of Care ---
Author Name Unknown Organization [facility] Address [address] [place] [address] Phone [phone] Care Team Providers Care House Mother Name Role Phone Cinda Schneider MD Primary Care Prov ider Reason for Visit * Reason Onset Date Comments Outpatient Testing 04/02/2024 Encounter Details Date Type Department Care Team (Late st Contact Info) Description 04/02/2024 Telephone NephrologyEmeli 200 [facility] [place] [address] Juliano Stephens MD [address] [facility] [place] [address] Outpatient Testing Allergies Active Allergy Reactions Criticality [...] Telephone Encounter - Aaliyah Palomares RN - 04/02/2024 9:17 AM EDT TE with pt regarding need for follow up labs post hospital stay. documented in this encounter Plan of Treatment Upcoming Encounters Date Type Department Care Team (Late st Contact Info) Description 04/27/2024 8:20 AM EDT Office Visit [facility] [address] [place] [address] Sonya Dacosta MD [address] [place] [address] 06/28/2024 8:30 AM EDT Imaging Cardiac Studies, [facility] 132 [facility] [place] [address] Scheduled Orders Name Type Priority Associated Diagnoses Orde r Schedule CBC Lab Routine VENKAT (acute kidney injury) (HCC) HTN, goal below 140/90 Expected: 04/03/2024 (Approximate), Expires: 04/02/2025 RENAL FUNCTION PANEL Lab Routine VENKAT (acute kidney injury) (HCC) HTN, goal below 140/90 Expected: 04/03/2024 (Approximate), Expires: 04/02/2025 HEPATIC FUNCTION PANEL Lab Routine VENKAT (acute kidney injury) (HCC) HTN, goal below 140/90 Expected: 04/03/2024 (Approximate), Expires: 04/02/2025 PTH Lab Routine VENKAT (acute kidney injury) ([facility]) HTN, goal below 140/90 Expected: 04/03/2024 (Approximate), Expires: 04/02/2025 URINALYSIS WITH MICROSCOPIC EXAM Lab Routine VENKAT (acute kidney injury) ([facility]) HTN, goal below 140/90 Expected: 04/03/2024 (Approximate), Expires: 04/02/2025 PROTEIN/ CREATININE RATIO, URINE Lab Routine VENKAT (acute kidney injury) ([facility]) HTN, goal below 140/90 Expected: 04/03/2024 (Approximate), Expires: 04/02/2025 URINE IMMUNOFIXATION, BENCE PIMENTEL PROTEIN, RANDOM URINE Lab Routine VENKAT (acute kidney injury) ([facility]) HTN, goal below 140/90 Expected: 04/03/2024 (Approximate), Expires: 04/02/2025 Health Maintenance Due Date Last Done Comments [...] injury) (HCC)- Primary Acute kidney failure, unspecified HTN, goal below 140/90 Unspecified essential hypertension documented in this encounter Care Teams House Mother Relationship Specialty Start Date End Date Cinda Schneider MD [address] [place] [address] [place] [address] PCP - General Family Medicine 03/27/24 documented as of this encounter
--- OUTSIDE RECORDS SUMMARY | 2024-07-09 07:15 | External Medical Summary | Summary of Care ---
Author Name Unknown Organization [facility] Address [address] [place] [address] Phone [phone] Care Team Providers Care Driller Hand Name Role Phone Cinda Schneider MD Primary Care Prov ider Reason for Visit * Reason Comments Outpatient Testing Encounter Details Date Type Department Care Team (Late st Contact Info) Description 04/04/2024 12:40 PM EDT Laboratory Laboratory [facility] [place] [address] [place] [id number] [place], [facility] [address] [place] [address] VENKAT (acute kidney injury) (HCC); HTN, goal [...] Nephrology, Em[facility] [place] [address] [place] [address] Ellyn Rose MD [address] [place] [address] 04/27/2024 8:20 AM EDT Office Visit Family Practice [facility] [address] [place] [address] [address] Sonya Dacosta MD [address] [place] [address] 06/28/2024 8:30 AM EDT Imaging Cardiac Studies, [facility] [address] [address] Pending Results Name Type Priority Associated Diagnoses Date /Time CBC Lab Routine VENKAT (acute kidney injury) (HCC) HTN, goal below 140/90 04/04/2024 12:40 PM EDT RENAL FUNCTION PANEL Lab Routine VENKAT (acute kidney injury) ([facility]) HTN, goal below 140/90 04/04/2024 12:40 PM EDT PTH Lab Routine VENKAT (acute kidney injury) (HCC) HTN, goal below 140/90 04/04/2024 12:40 PM EDT ALKALINE PHOSPHATASE Lab Routine VENKAT (acute kidney injury) ([facility]) HTN, goal below 140/90 04/04/2024 12:40 [...] Lab Routine VENKAT (acute kidney injury) ([facility]) HTN, goal below 140/90 04/04/2024 12:43 [...] hypertension documented in this encounter Care Teams Driller Hand Relationship Specialty Start Date End Date Cinda Schneider MD [address] [place] [address] [place] [address] PCP - General Family Medicine 03/27/24 documented as of this encounter
--- OUTSIDE RECORDS SUMMARY | 2024-07-09 07:15 | External Medical Summary ---
Author Name Unknown Address Unknown Organization K01:[facility] [place] [address] [address] Laboratory Report Ordering Provider Test Date Status RODNEYDEBORAH ROBLERO 04/04/2024 12:40:44 Final Deficient: <20 ng/mL
Ins ufficient: 20-29 ng/mL
Recommended/Optimum:30-50 ng/mL

Vitamin D intoxication is rare. If suspicious of Vitamin D toxicity, evaluation of serum Calcium and PTH is recommended. Observation Date Value Abnormality Reference (Units ) Status 25-OH Vitamin D total 04/04/2024 12:40:44 18 Below low normal >19 (ng/mL) Final Performing Location [facility] [place] [address] [place] [address]
--- OUTSIDE RECORDS SUMMARY | 2024-07-09 07:15 | External Medical Summary ---
Author Name Unknown Address Unknown Organization K09:[facility] [place] [address] Laboratory Report Ordering Provider Test Date Status EAGLE DUKE 04/04/2024 12:40:44 Final Observation Date Value Abnormality Reference (Units ) Status ALT (Alanine aminotransferase) 04/04/2024 12:40:44 15 10-50 (U/L) Final Performing Location [facility] [place] [address]
--- OUTSIDE RECORDS SUMMARY | 2024-07-09 07:15 | External Medical Summary ---
Author Name Unknown Address Unknown Organization K01:[facility] [place] [address] [place] [address] Laboratory Report Ordering Provider Test Date Status EAGLE DUKE 04/04/2024 12:43:24 Final Normal: <150 mg/ g creatinine
High: 150-500 mg/g creatinine
Very High: >500 mg/g creatinine
Nephrotic: >3000 mg/g creatinine Observation Date Value Abnormality Reference (Units ) Status Protein/Creatinine [Ratio] in Urine 04/04/2024 12:43:24 303 Above high normal <150 (mg/g ) Final Protein, Urine 04/04/2024 12:43:24 56 (mg/dL) Final Creatinine, Urine 04/04/2024 12:43:24 185 (mg/dL) Final Performing Location [facility] [place] [address] [place] [address]
[2024-07-09 07:20] LABS: Base Excess VBG 1.2 mEq/L; HCO3 VBG 28 mmol/L; Oxygen Saturation VBG < 60.0 %; PCO2 VBG 51 mmHg (38-50); PO2 VBG 30 mmHg; pH VBG 7.34 (7.36-7.41)
[2024-07-09 07:24] LABS: iSTAT Creatinine 9.3 mg/dl (0.6-1.3); iSTAT Hemoglobin 10.5 g/dl (14.0-18.0); iSTAT Ionized Calcium 1.08 mmol/l (1.12-1.32); iSTAT Potassium 5.1 mmol/L (3.3-5.0)
[2024-07-09] MEDS: FUROSEMIDE 40 MG/4 ML VIAL IV ONE (07:40)
[2024-07-09 07:41] LABS: Basophils # (auto) 0.04 K/uL (0.00-0.20); Basophils % (auto) 0.4 %; Eosinophils # (auto) 0.18 K/uL (0.00-0.50); Eosinophils % (auto) 1.7 %; Hematocrit (blood only) 30.1 % (42.0-52.0); Hemoglobin 9.8 g/dl (14.0-18.0); Immature Granulocytes # (auto) 0.08 K/uL (0.01-0.20); Immature Granulocytes % (auto) 0.8 %; Lymphocytes # (auto) 0.41 K/uL (1.20-3.40); Lymphocytes % (auto) 3.9 %; Mean Corpuscular Hemoglobin 30.2 pg (25.0-34.0); Mean Corpuscular Hgb Conc 32.6 g/dL (32.0-36.0); Mean Corpuscular Volume 92.9 fL (80.0-100.0); Mean Platelet Volume 10.4 fL (9.4-12.4); Monocytes # (auto) 0.52 K/uL (0.11-0.59); Neutrophils # (auto) 9.25 K/uL (1.40-6.50); Neutrophils % (auto) 88.2 %; Platelet Count 222 K/uL (130-400); RDW Coefficient of Variation 16.7 % (11.5-14.5); Red Blood Count 3.24 M/uL (4.70-6.10); White Blood Count 10.48 K/ul (4.8-10.8)
--- NOTE | 2024-07-09 07:42 | XRay Report ---
XR chest 1V portable HISTORY: 53 years-old Male Sepsis acute sepsis COMPARISON: Chest radiograph 03/30/2024 TECHNIQUE: AP view of the chest FINDINGS: Cardiac silhouette is enlarged. Right IJ dual-lumen hemodialysis catheter distal tip projects over th e superior cavoatrial junction. No pneumothorax. Extensive mixed interstitial and alveolar opacities of the lungs. No large pleural effusion. Bones appear grossly intact. IMPRESSION: Cardiomegaly with extensive bilateral mixed interstitial and alveolar opacities suggestiv e of multifocal pneumonia. Pulmonary edema considered less likely. ACT 112: Negative or not required by law. The above report was generated using voice recognition software. It may contain grammatical, syntax o r spelling errors. Electronically signed by: Adam Aguilera M.D. 07/09/2024 7:39 AM
[2024-07-09 07:46] LABS: Alanine Aminotransferase 49 U/L (7-52); Albumin Level 4.5 gm/dl (3.4-5.0); Alkaline Phosphatase 52 U/L (34-104); Anion Gap 11 (3-11); Aspartate Aminotransferase 88 U/L (13-39); BUN Creatinine Ratio 7.3 (10-20); Bilirubin,Total 1.2 mg/dl (0.2-1.0); Blood Urea Nitrogen 62 mg/dl (6-23); Calcium 9.1 mg/dl (8.6-10.3); Carbon Dioxide 28 mmol/L (21-32); Chloride 93 mmol/L (98-107); Creatinine Clr Calc Pharmacy 12.9 ml/min; Glucose 129 mg/dl (70-99(Fasting)); Magnesium 2.5 mg/dl (1.7-2.4); Potassium 4.8 mmol/L (3.5-5.1); Sodium 132 mmol/L (136-145); Total Protein 7.6 gm/dl (6.0-8.3)
[2024-07-09 07:52] LABS: Troponin I High Sensitivity 55.4 pg/ml (0-20)
[2024-07-09] MEDS ORDERED: LEVALBUTEROL HCL 0.63 MG/3 ML NEB NEB PRN (07:54)
[2024-07-09 07:58] LABS: INR 1.1 (0.9-1.1); Partial Thromboplastin Ratio 1.1; Partial Thromboplastin Time 29 Seconds (21-31); Prothrombin Time 12.3 Seconds (9.0-12.0)
[2024-07-09] MEDS ORDERED: CEFEPIME 2000MG 2,000 MG/20 ML SYR IV SCH (08:00)
[2024-07-09] MEDS ORDERED: SODIUM CHLORIDE 0.9% 1,000 ML IV PRN (08:01)
--- NOTE | 2024-07-09 08:04 | History & Physical Report ---
Date of Service July 09, 2024 Assessment & Plan (1) Acute hypoxic respiratory failure: (2) ESRD (end stage renal disease) on dialysis: (3) Hypertensive urgency: Plan Fly De Luna is a 53y/o M with PMHx significant for acquired hypothyroidism, hyperphosphatemia, HTN, Page kidney, ESRD on hemodialysis [M/W/F since May 2024], left renal hematoma, anemia of chronic disease and depression who presented to the ED via EMS secondary to worsening SOB/dyspnea requiring CPAP therapy prior to arrival. Patient was at his hemodialysis appointment this morning when he was found to be rather short of breath. EMS was therefore called. Per nursing staff at bedside in the ED, patient was notably hypoxic with an O2 sat of ~80% prior to arrival - thus prompting CPAP application. Patient was transitioned to BiPAP upon arrival to the ED with improvement of his O2 sat % into the low to mid 90s. CXR and physical exam in the ED were concerning for fluid overload. Dr. Turk had reached out to Dr. Bearden --> determination was made that the patient required emergent dialysis and needed to be admitted to the ICU in order to do so. Acute Hypoxic Respiratory Failure, ESRD on Hemodialysis: Likely related to volume overload. Patient with a 6kg weight gain since Tuesday. CXR notes cardiomegaly with extensive bilateral mixed interstitial and alveolar opacities suggestive of multifocal pneumonia. Pulmonary edema considered less likely per radiologist's interpretation, however patient with evidence of fluid overload on exam. S/p 80mg IV Lasix in the ED. Biofire positive for entero- /rhinovirus. UA negative. MRSA screen negative. Lactate, procalcitonin negative. Sating well on BiPAP. BNP pending. Nephrology and ICU consulted. Cr 8.49 on admission. Patient undergoing hemodialysis session today as previously scheduled --> aggressive dialysis with attempt to remove 5L at least and more if tolerated per nephrology. He follows with Dr. Setphens as an outpatient. Typically receives hemodialysis M/W/F at [facility] in [place]. Continue sevelamer carbonate. Isolation precautions. Can wean patient off of BiPAP as tolerated. Sputum culture pending. Repeat CXR this afternoon. Started on IV levofloxacin. Pulmonary toilet with Xopenex nebs PRN, flutter valve, incentive spirometry. Strict I&Os, daily weights. Blood cultures pending. Hypertensive Urgency, Elevated Troponin: Likely due to volume overloaded state/demand ischemia. BP 193/142 at time of sign-out. Most recently improved was 174/121 at 12:00. Troponin 55.4 on presentation --> Repeat troponin 61 at 09:04. Initial EKG without any acute ischemic changes. PRN IV hydralazine 10mg Q6H for SBP>180. Continue to closely monitor BP on telemetry, likely will improve following hemodialysis session today. Trend troponin Q6H. EKG with chest pain PRN. Updated echocardiogram pending. Can continue home antihypertensives. Anemia: Hgb 9.8 on admission. Likely dilutional component/anemia of chronic disease. Baseline Hgb ~7-9 per chart review. Patient denies any active bleeding. Follow routine anemia panel in AM. Other Chronic Medical Conditions: Acquired hypothyroidism, seasonal allergies --> Can continue home levothyroxine and Flonase. TSH in AM pending. DVT Prophylaxis: SQ Heparin Code Status: FULL CODE PCP: Sonya Dacosta MD Disposition: Admit to ICU - Likely can be downgraded to PCU/Telemetry later today following his hemodialysis session if his respiratory status improves. Patient seen in collaboration with Dr. Bateman. Please see addendum. I spent a total of 65 minutes coordinating, documenting, and providing care for this patient excluding time spent in the performance of separately billed servi maryam. This included personally reviewing all current laboratories and imaging studies, medical reconciliation, outpatient chart review and discussion with specialists. This chart was completed in part utilizing Speech Voice Recognition Software. Grammatical errors, random word insertions, pronoun errors, and incomplete sentences are an occasional consequence of this system due to software limitati ons, ambient noise, and hardware issues. Any formal questions or concerns about the content, text, or information contained within the body of this dictation should be directly addressed to the provider for clarification. History of Present Illness Chief Complaint: SOB/Dyspnea Primary Care Provider: Sonya Dacosta MD Fly De Luna is a 53y/o M with PMHx significant for acquired hypothyroidism, hyperphosphatemia, HTN, Page kidney, ESRD on hemodialysis [M/W/F since May 2024], left renal hematoma, anemia of chronic disease and depression who presented to the ED via EMS secondary to worsening SOB/dyspnea requiring CPAP therapy prior to arrival. History obtained from patient, at bedside and associated chart review. Patient was at his hemodialysis appointment this morning when he was found to be rather short of breath. EMS was therefore called. Per nursing staff at bedside in the ED, patient was notably hypoxic with an O2 sat of ~80% prior to arrival - thus prompting CPAP application. Patient was transitioned to BiPAP upon arrival to the ED with improvement of his O2 sat % into the low to mid 90s. CXR and physical exam in the ED were concerning for fluid overload. Dr. Turk had reached out to Dr. Bearden --> determination was made that the patient required emergent dialysis and needed to be admitted to the ICU in order to do so. reports that the patient has had a lingering cough since his previous a dmission back in March. However, he has started to produce some whitish- to mejia- colored sputum over the past few days and he has also been complaining of some increasing SOB with both rest/exertion. Denies any fevers but has been experiencing some chills here and there. He has been feeling progressively weaker over the past few days. Denies any diarrhea, urinary issues, chest pain or abdominal pain. mentions that he has gained a total of 6kg since Tuesday. His reports that he has been very cautious with daily fluid and sodium level intake limits. He is still making some urine. He has noticed some increasing swelling in his legs over the past few days. Allergies Allergy/AdvReac Type Severity Reaction Status Date / Time naproxen Allergy Intermediate SWELLING Verified 07/09/24 08:08 EYES AND LIPS Penicillins Allergy Intermediate HIVES, Verified 07/09/24 08:08 SWELLING amoxicillin Allergy Unknown Verified 07/09/24 08:08 Home Medications Medication Instructions Recorded Confirmed Type levothyroxine 200 mcg tablet 200 mcg PO DAILY 02/10/21 07/09/24 History fluticasone propionate 50 2 spray intranasal DAILY #15.8 mL 08/27/21 07/09/24 Rx mcg/actuation nasal spray,suspension guaifenesin 600 mg tablet, 600 mg PO Q12H PRN Congestion 03/29/24 07/09/24 History extended release 12 hr (Mucinex) multivitamin with minerals 1 tab PO DAILY 03/29/24 07/09/24 History albuterol sulfate 90 mcg/actuation 2 puff inhalation DAILY PRN 07/09/24 07/09/24 History aerosol inhaler Shortness Of Breath Or Wheezing amlodipine 10 mg tablet 10 mg PO QPM 07/09/24 07/09/24 History carvedilol 25 mg tablet 25 mg PO BID 07/09/24 07/09/24 History cholecalciferol (vitamin D3) 50 50 mcg PO DAILY 07/09/24 07/09/24 History mcg (2,000 unit) tablet (Vitamin D3) sevelamer carbonate 800 mg tablet 800 mg PO TIDWMEAL 07/09/24 07/09/24 History vitamin B complex-vitamin C-folic 1 tab PO DAILY 07/09/24 07/09/24 History acid 0.8 mg tablet (Marylin-Yany) Past Med/Surg History Problem List ESRD (end stage renal disease) on dialysis Acute hypoxic respiratory failure Acute respiratory failure (Acute) Acute renal failure (Acute) Pulmonary edema (Acute) Multifocal pneumonia Hypertensive urgency CHF (congestive heart failure) (Acute) Elevated troponin (Acute) VENKAT (acute kidney injury) (Acute) Pneumonia (Acute) Chronic rhinitis Eustachian tube dysfunction BPPV (benign paroxysmal positional vertigo) Pressure sensation in both ears Sensorineural hearing loss (SNHL) of both ears asymmetric wrs Finger laceration (Acute) Lumbar herniated disc Medical History Hypothyroid Asthma Seasonal allergies H/O gastroesophageal reflux (GERD) Surgical History History of repair of hiatal hernia Family History Grandfather (Maternal) Hearing loss Father Hypertension Grandmother (Paternal) Cancer unknown type Family/Other Asthma patient not sure but thinks he has a family history of asthma Other No family history of adverse response to anesthesia No family history of bleeding disorder Social History Smoking Status: Never smoker Second Hand Exposure: No; Do You Dip or Chew Tobacco: No; Hx Alcohol Use: No Hx Substance Use: No Preferred Language: Bulgarian Communication Ability: Effective Labor Utilization Superintendent Required: No Beliefs That Will Affect Care: None marital status: Single Current Living Situation: Spouse Current Living Situation Comment: lives at home with current occupational status: employed 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 Physical Exam Physical Exam: Please refer to Dr. Bateman's addendum for physical examination findings. Results & Data Results & Data Vital Signs (Past 12 Hours) Vital Signs Temp Pulse Resp BP Pulse Ox O2 Del Method O2 Flow Rate 07/09/24 07:49 81 24 92 CPAP 15 07/09/24 07:45 185/132 H 07/09/24 07:45 81 13 185/132 H 95 CPAP 07/09/24 07:35 183/134 H 07/09/24 07:27 86 33 H 94 CPAP 07/09/24 07:14 07/09/24 07:10 CPAP 07/09/24 07:10 CPAP 12 07/09/24 07:10 36.6 C 86 26 H 193/142 H 100 CPAP 12 07/09/24 07:05 86 32 H 100 FiO2 07/09/24 07:49 30 07/09/24 07:45 07/09/24 07:45 07/09/24 07:35 07/09/24 07:27 07/09/24 07:14 30 07/09/24 07:10 07/09/24 07:10 07/09/24 07:10 07/09/24 07:05 50 Laboratory Results Short CBC 07/09/24 Range/Units 07:05 WBC 10.48 (4.8-10.8) K/ul Hgb 9.8 L (14.0-18.0) g/dl Hct 30.1 L (42.0-52.0) % Plt Count 222 (130-400) K/uL BMP 07/09/24 07:05 Sodium 132 L Potassium 4.8 Chloride 93 L Carbon Dioxide 28 BUN 62 H Creatinine 8.49 H* Glucose 129 H Calcium 9.1 Liver Function 10/21/24 Range/Units 07:05 Total Bilirubin 1.2 H (0.2-1.0) mg/dl Direct Bilirubin TNP AST 88 H (13-39) U/L ALT 49 (7-52) U/L Alkaline Phosphatase 52 (34-104) U/L Albumin 4.5 (3.4-5.0) gm/dl Diagnostic Findings Chest X-Ray 07/09/24 07:03 XR chest 1V portable HISTORY: 53 years-old Male Sepsis acute sepsis COMPARISON: Chest radiograph 03/30/2024 TECHNIQUE: AP view of the chest FINDINGS: Cardiac silhouette is enlarged. Right IJ dual-lumen hemodialysis catheter distal tip projects over the superior cavoatrial junction. No pneumothorax. Extensive mixed interstitial and alveolar opacities of the lungs. No large pleural effusion. Bones appear grossly intact. IMPRESSION: Cardiomegaly with extensive bilateral mixed interstitial and alveolar opacities suggestive of multifocal pneumonia. Pulmonary edema consider ed less likely. ACT 112: Negative or not required by law. The above report was generated using voice recognition software. It may contain grammatical, syntax or spelling errors. Electronically signed by: Adam Aguilera M.D. 07/09/2024 7:39 AM Medications Administered Discontinued Medications Furosemide (Furosemide 40 Mg/4 Ml Vial) 80 mg IV ONE ONE Stop: 07/09/24 07:07 Last Admin: 07/09/24 07:40 Dose: 80 mg Documented By: NMS Code Status & VTE Plan Code Status FULL CODE VTE Prophylaxis Plan VTE Prophylaxis will be ordered: Yes Supervising Physician Co-Signing Physician Notes Patient is a 53-year-old male with history of ESRD on dialysis, hypothyroidism, hyperphosphatemia, hypertension and other medical problems presents with worsening shortness of breath associated with cough with expectoration. Patient was found to be hypoxic in 80s at the dialysis center this morning and so was sent to ED for further evaluation. Patient required CPAP while in ED to maintain his saturations. He denied any chest pain, fever, chills. States having worsening shortness of breath and intermittent dizziness lately. Also noted to have increased leg swelling. Please review HPI for complete details of presentation. I personally reviewed blood work and imaging studies. Troponin elevation in setting of chronic kidney disease. EKG showed no signs of acute ischemia. Normal procalcitonin noted. BioFire positive for rhinovirus. Chest x-ray showed bilateral interstitial and alveolar opacities suggestive of pne umonia/pulmonary edema. Physical Exam: Vitals signs as noted above General Appearance:Moderately built and nourished, no apparent distress Head: normocephalic, Atraumatic Eyes: normal inspection, EOMI Neck: supple, Trachea midline Respiratory/Chest: Decreased breath sounds, B/L rales, No accessory muscle use Cardiovascular: S1, S2, No murmur Abdomen/GI:Soft, Non tender, Bowel sounds present Extremities/Musculoskeletal:normal inspection, 2+ B/L edema Neurologic/Psych:AAOX3, grossly no focal neurological deficits Skin: normal color, warm Acute on chronic respiratory failure with hypoxia Volume overload Rhinovirus infection Less likely pneumonia Hypertensive urgency likely situational Normocytic anemia likely hemodilutional, due to CKD Troponin elevation likely demand ischemia End-stage renal disease on dialysis Hyponatremia likely due to volume overload Nephrology consulted to help with dialysis/volume management Continue CPAP for now Blood cultures pending Empirically started on Levaquin Nebs as needed Appreciate superintendent distribution help Will repeat chest x-ray after dialysis to reassess volume status Monitor troponin, sodium levels Anemia workup ordered as well I personally interviewed and examined at bedside. Patient's care is coordinated with Brook Arana PA-C. I have reviewed the advanced practitioner's documentation, and I agree with plan of care. Please refer to the documentation above for details of patient's presentation and for discussion of other issues. I spent a total [id number] coordinating, documenting, and providing care for this patient excluding time spent in the performance of separately billed services.
[2024-07-09 08:31] LABS: Appearance Urine Clear (Clear); Bacteria Urine Automated None Seen (None Seen); Bilirubin Urine Negative (Negative); Blood Urine 3+ (Negative); Cast Urine Automated 0-2 /lpf (0-2); Color Urine Yellow; Epithelial Cell Urine Auto 0-2 /hpf (0-2); Glucose Urine UA Negative (Negative); Ketones Urine Negative (Negative); Leukocyte Esterase Urine Trace (Negative); Nitrite Urine Negative (Negative); Protein Urine 3+ (Negative); Specific Gravity Urine 1.012 (1.000-1.030); Urobilinogen Urine Negative (Negative); WBC Urine Automated 0-5 /hpf (0-5)
[2024-07-09] MEDS ORDERED: hydrALAZINE HCL 20 MG/ML VIAL IV PRN (08:57)
--- NOTE | 2024-07-09 09:04 | Critical Care Consultation ---
Date of Consultation July 09, 2024 Assessment & Plan (1) Acute respiratory failure: (2) Pulmonary edema: (3) ESRD (end stage renal disease) on dialysis: (4) Hypertensive urgency: (5) CHF (congestive heart failure): Plan Reason Critically Ill: 53-year-old male with a history of end-stage renal disease on hemodialysis Tuesday/Tuesday/Tuesday who presents in the setting of respiratory distress requiring CPAP and emergent hemodialysis treatment. Patient with escalated hypertension as well in the setting of volume overload and baseline hypertension. NEURO - * CAM ICU: NEGATIVE CARDIAC/VASCULAR - * Hypertensive urgency: * Likely in the setting of volume overload. * Troponin marginally elevated. * EKG without changes. * Trend troponin. * Will see how the patient responds to hemodialysis. * Patient can restart his antihypertensive medications when clinically appropriate. * Consideration for parenteral therapies if necessary. * EKG: Normal sinus rhythm at a rate of [address] or T wave abnormalities appreciated. QTc 447 ms. * Monitor on telemetry. RESPIRATORY - * Acute hypoxic respiratory failure: * In the setting of volume overload. * Largely driven by the patient's end-stage renal disease. Will benefit from ongoing volume offloading. * Currently requiring CPAP with an FiO2 of 30% and saturating into the high 90s. * Can titrate down to supplemental oxygen as tolerated after dialysis. * Multifocal infiltrative findings on chest x-ray: * Had been worked up previously including urinalysis for Legionella which had been unremarkable. * He continues with a productive cough at this time. * We will obtain sputum cultures to assess for possible sources. * Will place on Levaquin renally based at this time given his setting of acuity and ongoing symptoms. * Repeat chest x-ray in the morning. * Positive rhino enterovirus: * Could be contributing the patient symptoms as well. * Symptomatic management. GI/NUTRITION - * N.p.o. until we see how long the patient requires positive pressure ventilation. * Prophylaxis: Not required currently. RENAL/LYTES - * ESRD on HD/ M/W/F: * Patient with 4 to 6 kg weight gain since Tuesday. * Patient would benefit from volume offloading as directed by nephrology. * Thankfully, electrolytes are not significantly abnormal. - * Patient does make scant amounts of urine. * Received 80 mg IV Lasix in the ED without significant output. * Strict I&Os. ENDO - * No h/o DM: * BSGs per unit protocol. ISS --> gtt per unit policy. * Hypothyroidism: * Continue with Levothyroxine as previously dosed. HEME - * Slight decrease in H&H. * Possibly dilution component. * Will trend. ID - * Multifocal Infiltrative Lung Process: * Had previously been evaluated in March during initial workup for ARF. * Sputum cultures, BioFire, and Legionella were negative at that time. * Given infiltrative process in the critically ill patient with an ongoing productive cough, agree with antibiotic coverage for now. * Will change to Levaquin (renally dosed) given severe penicillin allergy. * Thankfully, Lactate/PCT negative. * Will add sputum cultures. * Trend fever curve. * Positive rhino enterovirus: * Continue with conservative treatment. LINES/IV ACCESS - * PIVs x2 * PermCath DVT PROPHYLAXIS - * Heparin sq * SCDs Supervising Physician Co-Signing Physician Notes Patient seen and examined separately from TIMMY. Agree with the note aside for any additions/exceptions: Patient notes he has been having cough with productive mejia sputum for the past 2 to 3 days. He denies any fevers, but does occasionally have chills. He was treated for pneumonia this summer with levofloxacin. His respiratory viral panel came back positive for rhinovirus. We have restarted levofloxacin 750 mg for possible superimposed bacterial pneumonia. Will repeat a chest x-ray in 24 to 48 hours to ensure resolution of infiltrates as they may also be related to pulmonary edema as he had an inefficient dialysis session this Tuesday due to filter clotting. He is doing well overall and feels better. He does have evidence of anasarca on exam. He is currently on BiPAP which we are weaning down and hopefully he will be off this by later this afternoon. We are also restarting his home medications given his hypertensive urgency. Additionally troponins are mildly elevated likely due to demand ischemia. Repeat troponins pending and echocardiogram pending as well. EKG without e vidence of acute ischemic changes. Despite being on BiPAP, he does not appear to be in any significant respiratory distress. When he was attempted to be weaned off BiPAP earlier this morning, he became more short of breath and requested the BiPAP mask. Patient can likely transition out of the ICU later today. CRITICAL CARE TIME I have personally spent 42 minutes of critical care time in the direct management of this patient. This is a life/limb threatening event. This includes time spent evaluating patient, direct bedside care, chart review, placing orders, interpretation of diagnostic studies, discussion with consultants, patient, and family members, as well as other required patient management activities. This time is exclusive of all separately billable procedures, and teaching time and separate from and in addition to any other critical care service time. History of Present Illness Reason for Consultation: CKD stage IV requiring emergent dialysis Requesting Physician: Brook Arana PA-C Attending Physician: William Amador MD History of Present Illness Patient is a 53-year-old male with a significant past medical history of end- stage renal disease on hemodialysis Tuesday/Tuesday/Tuesday that recently started this in May, hypertension, chronic rhinitis, and hypothyroidism who presented to the emergency department from dialysis where he had arrived first treatment but was felt to be unstable. He was sent via ambulance to the emergency department where the patient was found to be not well appearing and requiring supplemental oxygen. The patient was placed on CPAP which did seem to significantly help his symptoms. Chest x-ray concerning of bilateral treated processes. No leukocytosis or fever. Troponin elevated. Lactic acid within normal limits. Procalcitonin negligible. Patient felt to require emergent hemodialysis and was admitted to the ICU. Upon evaluation in room 112, the patient is awake, alert, and oriented. Patient had been doing well after his dialysis treatment on Tuesday, but had noticed progressive worsening shortness of breath over the weekend. He has had no fevers. He reports occasional night sweats and ongoing cough that has been present since March during his initial admission. Patient recently started dialysis in May and is currently on a Tuesday/Tuesday/Tuesday schedule. He has no AV fistula at this time. He has been tolerating his dialysis treatments relatively well. Patient and do noticed that his legs have been a little bit more swollen recently, but he was started on amlodipine and there was concern for this as a secondary side effect as well. Patient denies complaints of chest pain, palpitations, hemoptysis, or abdominal discomfort. Allergies Allergy/AdvReac Type Severity Reaction Status Date / Time naproxen Allergy Intermediate SWELLING Verified 07/09/24 08:08 EYES AND LIPS Penicillins Allergy Intermediate HIVES, Verified 07/09/24 08:08 SWELLING amoxicillin Allergy Unknown Verified 07/09/24 08:08 Home Medications Medication Instructions Recorded Confirmed Type levothyroxine 200 mcg tablet 200 mcg PO DAILY 02/10/21 07/09/24 History fluticasone propionate 50 2 spray intranasal DAILY #15.8 mL 08/27/21 07/09/24 Rx mcg/actuation nasal spray,suspension guaifenesin 600 mg tablet, 600 mg PO Q12H PRN Congestion 03/29/24 07/09/24 History extended release 12 hr (Mucinex) multivitamin with minerals 1 tab PO DAILY 03/29/24 07/09/24 History albuterol sulfate 90 mcg/actuation 2 puff inhalation DAILY PRN 07/09/24 07/09/24 History aerosol inhaler Shortness Of Breath Or Wheezing amlodipine 10 mg tablet 10 mg PO QPM 07/09/24 07/09/24 History carvedilol 25 mg tablet 25 mg PO BID 07/09/24 07/09/24 History cholecalciferol (vitamin D3) 50 50 mcg PO DAILY 07/09/24 07/09/24 History mcg (2,000 unit) tablet (Vitamin D3) sevelamer carbonate 800 mg tablet 800 mg PO TIDWMEAL 07/09/24 07/09/24 History vitamin B complex-vitamin C-folic 1 tab PO DAILY 07/09/24 07/09/24 History acid 0.8 mg tablet (Marylin-Yany) Patient History Medical History Hypothyroid Asthma Seasonal allergies H/O gastroesophageal reflux (GERD) Surgical History History of repair of hiatal hernia Family History Grandfather (Maternal) Hearing loss Father Hypertension Grandmother (Paternal) Cancer unknown type Family/Other Asthma patient not sure but thinks he has a family history of asthma Other No family history of adverse response to anesthesia No family history of bleeding disorder Social History Smoking Status: Never smoker Second Hand Exposure: No; Do You Dip or Chew Tobacco: No; Hx Alcohol Use: No Hx Substance Use: No Preferred Language: Vietnamese Communication Ability: Effective Hoop Maker Helper Machine Required: No Beliefs That Will Affect Care: None marital status: Single Current Living Situation: Spouse Current Living Situation Comment: lives at home with current occupational status: employed 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 All else were negative. Physical Exam Physical Exam: VITAL SIGNS - Vital signs and nursing notes were reviewed. GENERAL - 53-year-old male appearing his stated age who is in mild distress. Communicates well with provider and answers questions appropriately. SKIN - Without rashes. HEAD - NC/AT. EYES - PERRL with EOMI bilaterally. Sclera anicteric. EARS - No deformities of external structures noted on gross examination bilaterally. NOSE - Midline and without cyanosis. MOUTH/OROPHARYNX - Without perioral cyanosis. NECK - Neck with FROM. LUNGS - Chest wall symmetric without accessory muscle use, intercostals retractions, or central cyanosis. Bibasilar Rales. No wheezing. CARDIAC - RRR with S1/S2. No murmur, rubs, or gallops appreciated. ABDOMEN - Abdominal contour obese without pulsations or visible masses. BS normoactive all four quadrants. No tenderness, palpable masses, hepatosplenomegaly, or ascites noted. EXTREMITIES - No clubbing or peripheral cyanosis. Moderate bilateral lower extremity edema. +3/5 radial and dorsalis pedis pulses palpated throughout. +5/5 strength noted in UE/LE bilaterally. NEUROLOGIC - Cranial nerves II through XII grossly intact. PSYCH - A&Ox3 and cooperates fully with examiner. Pt is very pleasant and interacts well with examiner. Results & Data Results & Data Vital Signs (Past 12 Hours) Vital Signs Temp Pulse Resp BP Pulse Ox O2 Del Method O2 Flow Rate 07/09/24 08:34 86 22 198/142 H 92 Nasal Cannula 4 07/09/24 08:18 198/142 H 88 L 07/09/24 07:57 91 07/09/24 07:49 81 24 92 CPAP 15 07/09/24 07:45 185/132 H 07/09/24 07:45 185/132 H 07/09/24 07:45 185/132 H 07/09/24 07:45 81 13 185/132 H 95 CPAP 07/09/24 07:35 183/134 H 07/09/24 07:27 86 33 H 94 CPAP 07/09/24 07:14 07/09/24 07:10 CPAP 07/09/24 07:10 CPAP 12 07/09/24 07:10 36.6 C 86 26 H 193/142 H 100 CPAP 12 07/09/24 07:05 86 32 H 100 FiO2 07/09/24 08:34 07/09/24 08:18 07/09/24 07:57 07/09/24 07:49 30 07/09/24 07:45 07/09/24 07:45 07/09/24 07:45 07/09/24 07:45 07/09/24 07:35 07/09/24 07:27 07/09/24 07:14 30 07/09/24 07:10 07/09/24 07:10 07/09/24 07:10 07/09/24 07:05 50 Coding Level of Care Code 00199 CRITICAL CARE 1ST 30-74M Diagnoses Acute respiratory failure J96.01 Respiratory failure complication: hypoxia Pulmonary edema J81.0 Chronicity: acute ESRD (end stage renal disease) on dialysis N18.6; Z99.2 Hypertensive urgency I16.0 CHF (congestive heart failure) I50.9 (1) Acute respiratory failure Respiratory failure complication: hypoxia Qualified Code(s): J96.01 - Acute respiratory failure with hypoxia (2) Pulmonary edema Chronicity: acute Qualified Code(s): J81.0 - Acute pulmonary edema
[2024-07-09 09:12] LABS: Adenovirus PCR Not Detected (NotDetected); Bordetella parapertussis PCR Not Detected (NotDetected); Bordetella pertussis PCR Not Detected (NotDetected); Chlamydia pneumoniae PCR Not Detected (NotDetected); Coronavirus 229E PCR Not Detected (NotDetected); Coronavirus CoV-2 (COVID19)PCR Not Detected (NotDetected); Coronavirus HKU1 PCR Not Detected (NotDetected); Coronavirus NL63 PCR Not Detected (NotDetected); Coronavirus OC43PCR Not Detected (NotDetected); Human Metapneumovirus PCR Not Detected (NotDetected); Influenza A PCR Not Detected (NotDetected); Influenza B PCR Not Detected (NotDetected); Mycoplasma pneumoniae PCR Not Detected (NotDetected); Parainfluenza Virus 1 PCR Not Detected (NotDetected); Parainfluenza Virus 2 PCR Not Detected (NotDetected); Parainfluenza Virus 3 PCR Not Detected (NotDetected); Parainfluenza Virus 4 PCR Not Detected (NotDetected); Respiratory Syncytial VirusPCR Not Detected (NotDetected); Rhinovirus/Enterovirus PCR DETECTED (NotDetected)
[2024-07-09] MEDS: DOXYCYCLINE HYCLATE 100 MG in DEXTROSE 5% MINI-B 100 ML IV SCH (09:50)
[2024-07-09] MEDS: SEVELAMER CARBONATE 800 MG TAB PO SCH (09:50)
--- NOTE | 2024-07-09 10:06 | Nephrology Consultation ---
Date of Consultation July 09, 2024 Assessment & Plan (1) Acute respiratory failure: from volume overload > work on 5L fluid removal; more if tolerated further as per ICU (2) ESRD (end stage renal disease) on dialysis: today is his regular day; eval for need daily until volume status optimized -continue OP binders when taking po (3) Hypertensive urgency: from volume overload stat aggressive dialysis w/ attempt to remove 5L at least and more if tolerated reevaluate in AM tomorrow for need for more treatment -continue amlodipine, coreg History of Present Illness Reason for Consultation: CKD 4 requiring emergent dialysis Requesting Physician: Dr Bateman Attending Physician: William Amador MD History of Present Illness 53 y/o M whom I'm asked to see for emergent dialysis needs was admitted this AM to ICU for bipap support after his outpatient dialysis unit sent him to ER d/t respiratory distress. PMH ESRD since March 2024 on HD at [facility] w/ Dr Stephens, HTN urgency history, also hx of not accessing much medical care prior to this summer when he was admitted here for HTN urgency and multifocal pneumonia. He's been very careful since starting dialysis with fluid and sodium limits; no reports of nonadherence. On arrival to ER he was put on bipap; he also tested positive for rhinovirus. He endorses dyspnea which worsened since last dialysis treatment. Also ongoing mild edema. denies chest pain, palpitatations, fever but does have chronic cough and periodic soaking sweats since March admission. no n/v, minimal UOP; no flank pain, some edema. no rash. Allergies Allergy/AdvReac Type Severity Reaction Status Date / Time naproxen Allergy Intermediate SWELLING Verified 07/09/24 08:08 EYES AND LIPS Penicillins Allergy Intermediate HIVES, Verified 07/09/24 08:08 SWELLING amoxicillin Allergy Unknown Verified 07/09/24 08:08 Home Medications Medication Instructions Recorded Confirmed Type levothyroxine 200 mcg tablet 200 mcg PO DAILY 02/10/21 07/09/24 History fluticasone propionate 50 2 spray intranasal DAILY #15.8 mL 08/27/21 07/09/24 Rx mcg/actuation nasal spray,suspension guaifenesin 600 mg tablet, 600 mg PO Q12H PRN Congestion 03/29/24 07/09/24 History extended release 12 hr (Mucinex) multivitamin with minerals 1 tab PO DAILY 03/29/24 07/09/24 History albuterol sulfate 90 mcg/actuation 2 puff inhalation DAILY PRN 07/09/24 07/09/24 History aerosol inhaler Shortness Of Breath Or Wheezing amlodipine 10 mg tablet 10 mg PO QPM 07/09/24 07/09/24 History carvedilol 25 mg tablet 25 mg PO BID 07/09/24 07/09/24 History cholecalciferol (vitamin D3) 50 50 mcg PO DAILY 07/09/24 07/09/24 History mcg (2,000 unit) tablet (Vitamin D3) sevelamer carbonate 800 mg tablet 800 mg PO TIDWMEAL 07/09/24 07/09/24 History vitamin B complex-vitamin C-folic 1 tab PO DAILY 07/09/24 07/09/24 History acid 0.8 mg tablet (Marylin-Yany) Patient History Medical History (Updated 07/09/24 @ 12:13 by Velia Bearden MD, PhD) ESRD (end stage renal disease) on dialysis Hypothyroid Asthma Seasonal allergies H/O gastroesophageal reflux (GERD) Surgical History History of repair of hiatal hernia Family History Grandfather (Maternal) Hearing loss Father Hypertension Grandmother (Paternal) Cancer unknown type Family/Other Asthma patient not sure but thinks he has a family history of asthma Other No family history of adverse response to anesthesia No family history of bleeding disorder Social History Smoking Status: Never smoker Second Hand Exposure: No; Do You Dip or Chew Tobacco: No; Hx Alcohol Use: No Hx Substance Use: No Preferred Language: Georgian Communication Ability: Effective Drum Sander Required: No Beliefs That Will Affect Care: None marital status: Single Current Living Situation: Spouse Current Living Situation Comment: lives at home with current occupational status: 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 Other Information That Helps Us Care for You: No Feels Safe at Home: Yes Safety Concerns: Feels Safe At This Time Assistive Devices: None Review of Systems 2 Review of Systems: All systems reviewed & are unremarkable except as noted in HPI & below Physical Exam 2 Constitutional: well developed, well nourished and cooperative; no acute distress (on bipap) Eyes: EOM intact bilaterally ENMT: Ears: no external ear abnormality Nose: no external nose abnormality Mouth: + dry oral mucous membranes Neck: no nuchal rigidity Respiratory: normal respiratory effort Auscultation: + diminished lung sounds Cardiovascular: Rate/Rhythm: regular rate and regular rhythm Extremities: + edema Gastrointestinal (Abdomen): Inspection/Auscultation: normal bowel sounds P ercussion/Palpation: abdomen soft; abdomen nontender Musculoskeletal: Extremities: strength 5/5 throughout Skin: no rashes, warm and dry Neurologic: gallegos, fluent speech, no tremor Psychiatric: Orientation: alert and oriented x 3 Results & Data Vital Signs (Past 12 Hours) Vital Signs Temp Pulse Pulse Resp BP Pulse Ox O2 Del Method 07/09/24 09:06 BiPAP 07/09/24 09:06 BiPAP 07/09/24 09:02 BiPAP 07/09/24 09:00 75 185/124 H 07/09/24 08:57 36.5 C 07/09/24 08:57 07/09/24 08:57 BiPAP 07/09/24 08:35 36.5 C 80 07/09/24 08:34 86 22 198/142 H 92 Nasal Cannula 07/09/24 08:18 198/142 H 88 L 07/09/24 07:57 91 07/09/24 07:49 81 24 92 CPAP 07/09/24 07:45 185/132 H 07/09/24 07:45 185/132 H 07/09/24 07:45 185/132 H 07/09/24 07:45 81 13 185/132 H 95 CPAP 07/09/24 07:35 183/134 H 07/09/24 07:27 86 33 H 94 CPAP 07/09/24 07:14 07/09/24 07:10 CPAP 07/09/24 07:10 CPAP 07/09/24 07:10 36.6 C 86 26 H 193/142 H 100 CPAP 07/09/24 07:05 86 32 H 100 O2 Del Method O2 Flow Rate FiO2 07/09/24 09:06 30 07/09/24 09:06 30 07/09/24 09:02 07/09/24 09:00 07/09/24 08:57 07/09/24 08:57 BiPAP 07/09/24 08:57 30 07/09/24 08:35 07/09/24 08:34 4 07/09/24 08:18 07/09/24 07:57 07/09/24 07:49 15 30 07/09/24 07:45 07/09/24 07:45 07/09/24 07:45 07/09/24 07:45 07/09/24 07:35 07/09/24 07:27 07/09/24 07:14 30 07/09/24 07:10 07/09/24 07:10 12 07/09/24 07:10 12 07/09/24 07:05 50 Laboratory Results 07/09/24 07:05 07/09/24 07:05 (1) Acute respiratory failure Respiratory failure complication: hypoxia Qualified Code(s): J96.01 - Acute respiratory failure with hypoxia
[2024-07-09] MEDS: HEPARIN SOD (PORCINE) 1000 UNIT/ML IV SCH (10:49)
[2024-07-09] MEDS: HEPARIN SOD (PORCINE) 1000 UNIT/ML IV ONE (10:49)
[2024-07-09] MEDS: carvediloL 25 MG TAB PO SCH (12:28)
[2024-07-09] MEDS: HEPARIN SOD 5,000 UNIT/0.5 ML VIAL SQ SCH (12:28)
[2024-07-09] MEDS: CHOLECALCIFEROL 25 MCG (1000 UNITS) TAB PO SCH (12:28)
[2024-07-09] MEDS: levoFLOXacin/D5W 750 MG/150 ML BAG IV SCH (12:28)
[2024-07-09] MEDS: FLUTICASONE PROPIONATE NA SPR 16 GM BTL SCH (12:28)
[2024-07-09] MEDS: ICU Protocol for HYPERglycemia SCH (12:29)
[2024-07-09] MEDS: LEVOTHYROXINE SODIUM 200 MCG TABLET PO SCH (12:29)
[2024-07-09] MEDS: CEROVITE ADV FORMULA TAB PO SCH (12:29)
[2024-07-09] MEDS: VITAMIN B COMPLEX TAB PO SCH (12:29)
--- NOTE | 2024-07-09 15:23 | XRay Report ---
XR chest 1V portable HISTORY: 53 years-old Male Pulmonary edema s/p dialysis acute shortness of breath COMPARISON: 07/09/2024 TECHNIQUE: AP view of the chest FINDINGS: Cardiac silhouette is enlarged. Pulmonary vascular congestion. Interstitial coarsening with moderatel y improved aeration of the lungs. No pneumothorax. Trace pleural effusions. Unchanged position of the right IJ dual-lumen hemodialysis catheter. Bones appear grossly intact. IMPRESSION: Cardiomegaly with persistent mixed interstitial and alveolar opacities, improved from the study earlier this morning. Findings favor improved pulmonary edema. ACT 112: Negative or not required by law. The above report was generated using voice recognition software. It may contain grammatical, syntax o r spelling errors. Electronically signed by: Adam Aguilera M.D. 07/09/2024 3:22 PM
[2024-07-09] MEDS ORDERED: ACETAMINOPHEN 325 MG TAB PO PRN (15:51)
[2024-07-09] MEDS ORDERED: POLYETHYLENE (MIRALAX) 17 GM PACK PO PRN (15:51)
[2024-07-09] MEDS ORDERED: PROMETHAZINE 6.25 MG/50.25 ML BAG IV PRN (15:54)
[2024-07-09] MEDS ORDERED: CEFEPIME 1000MG 1,000 MG/10 ML SYR IV SCH (16:00)
--- NOTE | 2024-07-09 16:46 | Communication Note ---
Date of Service: July 09, 2024 Patient seen in the ICU this afternoon around 3PM. Was completely off of supplemental oxygen therapy and sating well in the mid 90s SpO2 % on RA. Completed hemodialysis session with removal of 5.5L. Patient being downgraded to Med/Surg + Telemetry. Updated patient and his , Ebony, at bedside regarding this.
--- NOTE | 2024-07-09 16:54 | Dialysis Progress Note ---
Date of Service July 09, 2024 Assessment & Plan (1) Acute respiratory failure: Plan: improving w/ treatment of volume overload > for 5+ L UF further as per ICU (2) ESRD (end stage renal disease) on dialysis: Plan: today is his regular HD day; eval for need daily until volume status optimized > may need another treatment tomorrow given ongoing HTN -continue OP binders when taking po -no JOSUÉ on treatment d/t HTN; hgb may improve w/ fluid removal as well -no issues w/ TDC (3) Hypertensive urgency: Plan: from volume overload to start frequent aggressive dialysis w/ large UF until optimized reevaluate in AM tomorrow for need for more treatment -continue amlodipine, coreg OP doses Admission and Anticipated Discharge Date Admission Date: July 09, 2024 Subjective pt seen late morning on dialysis. weaned off of cpap > 02NC. no c/o chest pain or palpitations or focal numbness/weakness; on track for 5.5 L UF Review of Systems 2 Review of Systems: All systems reviewed & are unremarkable except as noted in Subjective Physical Exam 2 Constitutional: well developed, well nourished and cooperative; no acute distress (on 02NC) Eyes: EOM intact bilaterally ENMT: Mouth: + dry oral mucous membranes Neck: no nuchal rigidity Respiratory: normal respiratory effort Auscultation: + diminished lung sounds Cardiovascular: Rate/Rhythm: regular rate and regular rhythm Extremities: + edema Musculoskeletal: Extremities: strength 5/5 throughout Skin: no rashes, warm and dry Psychiatric: Orientation: alert and oriented x 3 Results & Data Vital Signs (Past 12 Hours) Vital Signs Temp Pulse Pulse Resp BP BP Pulse Ox 07/09/24 16:00 36.8 C 07/09/24 16:00 79 21 95 07/09/24 16:00 169/108 H 07/09/24 16:00 76 07/09/24 15:00 162/109 H 07/09/24 14:33 76 24 90 07/09/24 14:00 74 24 100 07/09/24 14:00 158/105 H 07/09/24 13:18 86 24 97 07/09/24 13:00 178/119 H 07/09/24 12:54 86 18 100 07/09/24 12:50 36.5 C 83 191/121 H 07/09/24 12:30 77 181/103 H 07/09/24 12:00 36.6 C 07/09/24 12:00 74 174/121 H 07/09/24 11:45 75 21 07/09/24 11:45 176/123 H 07/09/24 11:30 72 176/119 H 07/09/24 11:00 73 182/121 H 07/09/24 10:30 70 178/116 H 07/09/24 10:00 71 179/121 H 07/09/24 09:30 77 199/131 H 07/09/24 09:06 07/09/24 09:06 07/09/24 09:02 07/09/24 09:00 75 185/124 H 07/09/24 08:57 36.5 C 07/09/24 08:57 07/09/24 08:57 07/09/24 08:35 36.5 C 80 07/09/24 08:34 86 22 198/142 H 92 07/09/24 08:18 198/142 H 88 L 07/09/24 07:57 91 07/09/24 07:49 81 24 92 07/09/24 07:45 185/132 H 07/09/24 07:45 185/132 H 07/09/24 07:45 185/132 H 07/09/24 07:45 81 13 185/132 H 95 07/09/24 07:35 183/134 H 07/09/24 07:27 86 33 H 94 07/09/24 07:14 07/09/24 07:10 07/09/24 07:10 07/09/24 07:10 36.6 C 86 26 H 193/142 H 100 07/09/24 07:05 86 32 H 100 O2 Del Method O2 Del Method O2 Flow Rate FiO2 07/09/24 16:00 07/09/24 16:00 07/09/24 16:00 07/09/24 16:00 07/09/24 15:00 07/09/24 14:33 07/09/24 14:00 07/09/24 14:00 07/09/24 13:18 07/09/24 13:00 07/09/24 12:54 Nasal Cannula 2 07/09/24 12:50 07/09/24 12:30 07/09/24 12:00 07/09/24 12:00 07/09/24 11:45 07/09/24 11:45 07/09/24 11:30 07/09/24 11:00 07/09/24 10:30 07/09/24 10:00 07/09/24 09:30 07/09/24 09:06 BiPAP 30 07/09/24 09:06 BiPAP 30 07/09/24 09:02 BiPAP 07/09/24 09:00 07/09/24 08:57 07/09/24 08:57 BiPAP 07/09/24 08:57 BiPAP 30 07/09/24 08:35 07/09/24 08:34 Nasal Cannula 4 07/09/24 08:18 07/09/24 07:57 07/09/24 07:49 CPAP 15 30 07/09/24 07:45 07/09/24 07:45 07/09/24 07:45 07/09/24 07:45 CPAP 07/09/24 07:35 07/09/24 07:27 CPAP 07/09/24 07:14 30 07/09/24 07:10 CPAP 07/09/24 07:10 CPAP 12 07/09/24 07:10 CPAP 12 07/09/24 07:05 50 Laboratory Results 07/09/24 07:05 07/09/24 07:05 (1) Acute respiratory failure Respiratory failure complication: hypoxia Qualified Code(s): J96.01 - Acute respiratory failure with hypoxia
[2024-07-09] MEDS: hydrALAZINE HCL 20 MG/ML VIAL IV PRN (17:39)
[2024-07-09] MEDS: amLODIPine BESYLATE 5 MG TAB PO SCH (20:34)
--- NOTE | 2024-07-09 21:15 | Electrocardiogram Report ---
Test Reason : Blood Pressure : */* mmHG Vent. Rate : 88 BPM Atrial Rate : 88 BPM P-R Int : 170 ms QRS Dur : 76 ms QT Int : 370 ms P-R-T Axes : 51 25 89 degrees QTcB Int : 447 ms Normal sinus rhythm Possible Left atrial enlargement Nonspecific ST abnormality Abnormal ECG When compared with ECG of 29-Mar-2024 15:54, T wave amplitude has increased in Inferior leads Nonspecific T wave abnormality, improved in Lateral leads Confirmed by Edwar Conway ([id number]) on 07/09/2024 9:14:58 PM Referred By: REFERRED SELF Confirmed By: Edwar Conway
[2024-07-10 02:12] LABS: Hematocrit (blood only) 28.7 % (42.0-52.0); Hemoglobin 9.4 g/dl (14.0-18.0); Mean Corpuscular Hemoglobin 30.2 pg (25.0-34.0); Mean Corpuscular Hgb Conc 32.8 g/dL (32.0-36.0); Mean Corpuscular Volume 92.3 fL (80.0-100.0); Mean Platelet Volume 9.5 fL (9.4-12.4); Platelet Count 201 K/uL (130-400); RDW Coefficient of Variation 16.9 % (11.5-14.5); RDW Standard Deviation 56.5 fL (36.4-46.3); Red Blood Count 3.11 M/uL (4.70-6.10); White Blood Count 7.95 K/ul (4.8-10.8)
[2024-07-10 02:40] LABS: Albumin Globulin Ratio 1.4 (0.9-2); Albumin Level 4.1 gm/dl (3.4-5.0); BUN Creatinine Ratio 6.3 (10-20); Bilirubin,Total 1.5 mg/dl (0.2-1.0); Calcium 9.2 mg/dl (8.6-10.3); Creatinine Clr Calc Pharmacy 14.9 ml/min; Globulin 2.9 gm/dl (2.5-4.0); Magnesium 2.2 mg/dl (1.7-2.4); Phosphorus 4.5 mg/dl (2.5-4.9); Potassium 4.3 mmol/L (3.5-5.1)
[2024-07-10 02:54] LABS: Ferritin 515.4 ng/ml (8-388); Thyroid Stimulating Hormone 7.954 uIu/ml (0.300-4.500)
[2024-07-10 02:56] LABS: Folate (Folic Acid),Ser orPlas 19.29 ng/ml (>5.38)
[2024-07-10 03:55] LABS: T4 Free Thyroxine 1.29 ng/dl (0.61-1.60)
--- NOTE | 2024-07-10 07:33 | XRay Report ---
XR chest 1V portable CLINICAL HISTORY: Respiratory failure. COMPARISON STUDY: Chest CT March 30, 2024. Chest radiograph July 09, 2024. FINDINGS: Dual lumen right internal jugular venous catheter is unchanged in position. There is no pne umothorax. There are trace bilateral pleural effusions. Interstitial thickening has improved. Mild le ft basilar opacity is present. There is no lobar consolidation. Cardiomegaly is again noted. The medi astinal contours are stable. IMPRESSION: 1. Cardiomegaly. Mild interstitial pulmonary edema which has improved since prior exam. 2. Trace bilateral pleural effusions. ACT 112: Negative or not required by law. Electronically signed by: Lalo Vann M.D. 07/10/2024 7:31 AM
[2024-07-10 07:58] LABS: Basophils # (auto) 0.07 K/uL (0.00-0.20); Eosinophils # (auto) 0.15 K/uL (0.00-0.50); Eosinophils % (auto) 2.1 %; Hematocrit (blood only) 30.3 % (42.0-52.0); Hemoglobin 9.7 g/dl (14.0-18.0); Immature Granulocytes # (auto) 0.05 K/uL (0.01-0.20); Immature Granulocytes % (auto) 0.7 %; Lymphocytes # (auto) 0.54 K/uL (1.20-3.40); Lymphocytes % (auto) 7.4 %; Mean Corpuscular Hemoglobin 29.8 pg (25.0-34.0); Mean Corpuscular Volume 93.2 fL (80.0-100.0); Mean Platelet Volume 9.6 fL (9.4-12.4); Monocytes % (auto) 6.8 %; Neutrophils # (auto) 5.99 K/uL (1.40-6.50); Platelet Count 215 K/uL (130-400); RDW Coefficient of Variation 16.9 % (11.5-14.5); RDW Standard Deviation 57.5 fL (36.4-46.3); Red Blood Count 3.25 M/uL (4.70-6.10)
[2024-07-10] MEDS ORDERED: HEPARIN SOD (PORCINE) 1000 UNIT/ML IV ONE (09:13)
[2024-07-10] MEDS ORDERED: SODIUM CHLORIDE 0.9% 1,000 ML IV PRN (09:13)
[2024-07-10] MEDS ORDERED: HEPARIN SOD (PORCINE) 1000 UNIT/ML IV SCH ×2 (09:15→09:24)
[2024-07-10] MEDS: HEPARIN SOD (PORCINE) 1000 UNIT/ML IV ONE (10:28)
[2024-07-10] MEDS: HEPARIN SOD (PORCINE) 1000 UNIT/ML IV SCH (11:40)
--- NOTE | 2024-07-10 12:32 | Dialysis Progress Note ---
Date of Service July 10, 2024 Assessment & Plan (1) ESRD (end stage renal disease) on dialysis: Plan: tomorrow is his regular HD day; eval for need daily until volume status optimized > plan routine HD tomorrow extra HD today to further manage volume overload >>pt w/ CKD 3B (best we can tell; came from out of system) in March 2024; then abrupt worsening creatinine w/ uremic sx and very labile HTN in April. Had renal bx 05/17 c/b bleeding > Page kidney s/p L renal embolization. creat holding at about 8 consistently in and now ESRD; verified w/ OP unit he's ESRD >>trying for another 5.5 L UF today as tolerated >> so far BP holding and no cramps or other sx -continue OP binders when taking po -no JOSUÉ on treatment d/t HTN; -added 1.5L FR to dialysis diet -hgb 9.7 >> minimally improved w/ fluid removal and ordered 10 K on tx today -no issues w/ TDC (2) Hypertensive urgency: Plan: from volume overload to start; even this AM BP still markedly elevated 166/109 frequent aggressive dialysis w/ large UF until optimized -continue amlodipine, coreg OP doses (3) Acute respiratory failure: Plan: resolved w/ supportive care and w/ treatment of volume overload , supportive care of rhinovirus > to RA after 5.5L UF Admission and Anticipated Discharge Date Admission Date: July 09, 2024 Subjective seen on HD. feels much better; on RA; states has been feeling overloaded past 2- 3 wks, w/ more LE edema and "like I have a backpack on my back." some question of whether pt is ESRD or VENKAT-D Review of Systems 2 Review of Systems: All systems reviewed & are unremarkable except as noted in Subjective Physical Exam 2 Constitutional: well developed, well nourished and cooperative; no acute distress (on RA) Eyes: EOM intact bilaterally ENMT: Mouth: + dry oral mucous membranes Neck: no nuchal rigidity Respiratory: normal respiratory effort Auscultation: + diminished lung sounds Cardiovascular: Rate/Rhythm: regular rate and regular rhythm Extremities: + edema Musculoskeletal: Extremities: strength 5/5 throughout Skin: no rashes, warm and dry Psychiatric: Orientation: alert and oriented x 3 Results & Data Vital Signs (Past 12 Hours) Vital Signs Temp Pulse Pulse Resp BP Pulse Ox O2 Del Method 07/10/24 12:00 70 159/98 H 07/10/24 11:30 68 160/99 H 07/10/24 11:00 68 150/98 H 07/10/24 10:30 69 155/99 H 07/10/24 10:00 74 147/98 H 07/10/24 09:40 36.6 C 76 07/10/24 08:09 84 23 97 07/10/24 08:00 171/105 H 07/10/24 08:00 36.7 C 07/10/24 07:54 86 22 97 Room Air 07/10/24 07:00 153/106 H 07/10/24 07:00 83 19 97 07/10/24 06:12 83 27 H 96 07/10/24 06:00 150/91 H 07/10/24 06:00 150/91 H 07/10/24 05:36 83 28 H 97 07/10/24 05:06 83 28 H 98 07/10/24 05:00 155/105 H 07/10/24 05:00 155/105 H 07/10/24 05:00 155/105 H 07/10/24 05:00 155/105 H 07/10/24 04:57 82 16 97 07/10/24 04:03 83 31 H 92 07/10/24 04:02 174/114 H 07/10/24 04:02 174/114 H 07/10/24 04:00 37.4 C 178/114 H 07/10/24 04:00 82 28 H 92 07/10/24 03:00 161/110 H 07/10/24 03:00 161/110 H 07/10/24 03:00 161/110 H 07/10/24 03:00 75 17 97 07/10/24 02:12 79 10 L 98 07/10/24 02:00 163/106 H 07/10/24 02:00 163/106 H 07/10/24 01:48 83 23 95 07/10/24 01:09 79 24 95 07/10/24 01:00 165/86 H 07/10/24 00:57 78 28 H 97 Laboratory Results 07/10/24 07:23 07/10/24 01:56 (3) Acute respiratory failure Respiratory failure complication: hypoxia Qualified Code(s): J96.01 - Acute respiratory failure with hypoxia
[2024-07-10] MEDS: EPOETIN ALFA 10,000 UNITS/ML VIAL IV SCH (13:30)
[2024-07-10] MEDS: hydrALAZINE HCL 20 MG/ML VIAL IV PRN (14:20)
[2024-07-10] MEDS: levoFLOXacin/D5W 250 MG/50 ML BAG IV SCH (15:18)
--- NOTE | 2024-07-10 15:46 | Hospitalist Progress Note ---
Date of Service July 10, 2024 Assessment & Plan (1) Acute hypoxic respiratory failure: (2) ESRD (end stage renal disease) on dialysis: Plan: Acute on chronic respiratory failure with hypoxia Volume overload Rhinovirus infection Less likely pneumonia --CXR:Cardiomegaly with extensive bilateral mixed interstitial and alveolar opacities suggestive of multifocal pneumonia. Pulmonary edema considered less likely. --Repeat CXR after dialysis:Cardiomegaly. Mild interstitial pulmonary edema which has improved since prior exam. Trace bilateral pleural effusions. -- BioFire positive for rhinovirus --Blood cultures: Negative to date --Sputum culture: Moderate normal ar -- Volume managed through dialysis --Empirically on Levaquin -- Appreciate critical care, nephrology help -- Weaned off of supplemental oxygen -- Nebs as needed Hypertensive urgency Long history of labile hypertension Continue amlodipine, Coreg Monitor and adjust medications as needed IV hydralazine as needed ESRD on HD Continue dialysis per nephrology Appreciate nephrology help Hypothyroidism Elevated TSH, normal free T4 Continue levothyroxine Needs repeat thyroid function test as outpatient Elevated troponins Demand ischemia in setting of hypertensive urgency, hypoxia, CKD Chronic anemia Anemia workup reviewed Monitor CBC DVT Px: Heparin SQ CODE STATUS Full code Admission and Anticipated Discharge Date Admission Date: July 09, 2024 Subjective Patient is seen and examined at bedside Shortness of breath much improved after dialysis Had hemodialysis earlier today Patient offers no new complaints Less cough today Discussed with nephrology today Denies any chest pain, nausea, vomiting, abdominal pain Review of Systems Review of Systems: All systems reviewed & are unremarkable except as noted in Subjective Physical Exam Physical Exam: Physical Exam: Vitals signs as noted above General Appearance:Moderately built and nourished, no apparent distress Head: normocephalic, Atraumatic Eyes: normal inspection, EOMI Neck: supple, Trachea midline Respiratory/Chest: Decreased breath sounds, B/L rales, No accessory muscle use Cardiovascular: S1, S2, No murmur Abdomen/GI:Soft, Non tender, Bowel sounds present Extremities/Musculoskeletal:normal inspection, 2+ B/L edema Neurologic/Psych:AAOX3, grossly no focal neurological deficits Skin: normal color, warm Results & Data Results & Data Vital Signs (Past 12 Hours) Vital Signs Temp Pulse Pulse Resp BP BP Pulse Ox 07/10/24 15:16 174/101 H 07/10/24 14:08 36.4 C L 78 18 173/108 H 98 07/10/24 13:50 36.7 C 73 163/107 H 07/10/24 13:30 72 145/99 H 07/10/24 13:00 71 143/93 H 07/10/24 12:30 73 143/93 H 07/10/24 12:00 70 159/98 H 07/10/24 11:30 68 160/99 H 07/10/24 11:00 68 150/98 H 07/10/24 10:30 69 155/99 H 07/10/24 10:00 74 147/98 H 07/10/24 09:40 36.6 C 76 07/10/24 08:09 84 23 97 07/10/24 08:00 171/105 H 07/10/24 08:00 36.7 C 07/10/24 07:54 86 22 97 07/10/24 07:00 153/106 H 07/10/24 07:00 83 19 97 07/10/24 06:12 83 27 H 96 07/10/24 06:00 150/91 H 07/10/24 06:00 150/91 H 07/10/24 05:36 83 28 H 97 07/10/24 05:06 83 28 H 98 07/10/24 05:00 155/105 H 07/10/24 05:00 155/105 H 07/10/24 05:00 155/105 H 07/10/24 05:00 155/105 H 07/10/24 04:57 82 16 97 07/10/24 04:03 83 31 H 92 07/10/24 04:02 174/114 H 07/10/24 04:02 174/114 H 07/10/24 04:00 37.4 C 178/114 H 07/10/24 04:00 82 28 H 92 O2 Del Method 07/10/24 15:16 07/10/24 14:08 Room Air 07/10/24 13:50 07/10/24 13:30 07/10/24 13:00 07/10/24 12:30 07/10/24 12:00 07/10/24 11:30 07/10/24 11:00 07/10/24 10:30 07/10/24 10:00 07/10/24 09:40 07/10/24 08:09 07/10/24 08:00 07/10/24 08:00 07/10/24 07:54 Room Air 07/10/24 07:00 07/10/24 07:00 07/10/24 06:12 07/10/24 06:00 07/10/24 06:00 07/10/24 05:36 07/10/24 05:06 07/10/24 05:00 07/10/24 05:00 07/10/24 05:00 07/10/24 05:00 07/10/24 04:57 07/10/24 04:03 07/10/24 04:02 07/10/24 04:02 07/10/24 04:00 07/10/24 04:00 Laboratory Results Short CBC 07/10/24 07/10/24 Range/Units 01:56 07:23 WBC 7.95 7.30 (4.8-10.8) K/ul Hgb 9.4 L 9.7 L (14.0-18.0) g/dl Hct 28.7 L 30.3 L (42.0-52.0) % Plt Count 201 215 (130-400) K/uL BMP 07/10/24 01:56 Sodium 133 L Potassium 4.3 Chloride 96 L Carbon Dioxide 27 BUN 46 H Creatinine 7.36 H* D Glucose 102 H Calcium 9.2 Liver Function 07/10/24 Range/Units 01:56 Total Bilirubin 1.5 H (0.2-1.0) mg/dl AST 64 H (13-39) U/L ALT 42 (7-52) U/L Alkaline Phosphatase 45 (34-104) U/L Albumin 4.1 (3.4-5.0) gm/dl
[2024-07-11 03:59] VITALS: RESP 18; O2SAT 98
[2024-07-11 06:18] LABS: Basophils # (auto) 0.06 K/uL (0.00-0.20); Basophils % (auto) 0.9 %; Eosinophils # (auto) 0.16 K/uL (0.00-0.50); Eosinophils % (auto) 2.4 %; Hematocrit (blood only) 30.4 % (42.0-52.0); Hemoglobin 9.7 g/dl (14.0-18.0); Immature Granulocytes # (auto) 0.06 K/uL (0.01-0.20); Immature Granulocytes % (auto) 0.9 %; Lymphocytes # (auto) 0.54 K/uL (1.20-3.40); Lymphocytes % (auto) 8.1 %; Mean Corpuscular Hemoglobin 29.9 pg (25.0-34.0); Mean Corpuscular Hgb Conc 31.9 g/dL (32.0-36.0); Mean Corpuscular Volume 93.8 fL (80.0-100.0); Mean Platelet Volume 9.9 fL (9.4-12.4); Monocytes # (auto) 0.81 K/uL (0.11-0.59); Monocytes % (auto) 12.1 %; Neutrophils # (auto) 5.06 K/uL (1.40-6.50); Neutrophils % (auto) 75.6 %; Platelet Count 205 K/uL (130-400); RDW Coefficient of Variation 17.2 % (11.5-14.5); RDW Standard Deviation 58.1 fL (36.4-46.3); Red Blood Count 3.24 M/uL (4.70-6.10); White Blood Count 6.69 K/ul (4.8-10.8)
[2024-07-11 06:41] LABS: BUN Creatinine Ratio 5.8 (10-20); Calcium 9.1 mg/dl (8.6-10.3); Creatinine Clr Calc Pharmacy 15.4 ml/min
[2024-07-11 10:25] VITALS: TEMP 98.4
[2024-07-11] MEDS: HEPARIN SOD (PORCINE) 1000 UNIT/ML IV ONE (10:30)
[2024-07-11] MEDS: EPOETIN ALFA 10,000 UNITS/ML VIAL IV ONE (10:33)
[2024-07-11] MEDS: HEPARIN SOD (PORCINE) 1000 UNIT/ML IV SCH (11:50)
--- NOTE | 2024-07-11 13:32 | Dialysis Progress Note ---
Date of Service July 11, 2024 Assessment & Plan (1) ESRD (end stage renal disease) on dialysis: Plan: today is his regular HD day; eval for need daily until volume status optimized > had ordered 4L UF for today but after evaluation will intensify UF target to 5- 5.5L once again extra HD yesterday to manage volume overload >>pt w/ CKD 3B (best we can tell; came from out of system) in March 2024; then abrupt worsening creatinine w/ uremic sx and very labile HTN in April. Had renal bx 05/17 c/b bleeding > Page kidney s/p L renal embolization. creat holding at about 8 consistently in and now ESRD; verified w/ OP unit he's ESRD though pt struggling to accept this >>trying for another 4 now 5-5.5 L UF today as tolerated >> so far BP holding and no cramps or other sx -continue OP binders -no JOSUÉ on treatment d/t HTN; -continue 1.5L FR & dialysis diet in house and at d/c -hgb 9.7 again today >> minimally improved w/ fluid removal and I ordered epo 10K units yesterday and again today -no issues w/ TDC Care reviewed w/ Dr Uribe > we are in agreement regarding aggressive UF goals. I will update OP dialysis team - at facility as well as rounding providers on new, significantly lower TW. he still has edema, so would set TW at 1 kg below post tx wt today and probe. (2) Hypertensive urgency: Plan: from volume overload to start; even this AM BP still elevated 157/94 frequent aggressive dialysis w/ large UF until optimized -continue amlodipine, coreg OP doses (3) Acute respiratory failure: Plan: resolved w/ supportive care and w/ treatment of volume overload , supportive care of rhinovirus > to RA after 5.5L UF on day of admission Admission and Anticipated Discharge Date Admission Date: July 09, 2024 Subjective seen on dialysis. breathing and edema continue to improve though pt still notices both. tolerating po w/o issue; aware of fluid limit. no n/v/d. cough/sinus congestion improving; tolerating po. no cramps or large BP swings on HD. Review of Systems 2 Review of Systems: All systems reviewed & are unremarkable except as noted in Subjective Physical Exam 2 Constitutional: well developed, well nourished and cooperative; no acute distress (on RA) Eyes: EOM intact bilaterally Respiratory: normal respiratory effort Auscultation: + diminished lung sounds Cardiovascular: Rate/Rhythm: regular rate and regular rhythm Extremities: + edema (1++ BLE pretibial) Gastrointestinal (Abdomen): Inspection/Auscultation: normal bowel sounds P ercussion/Palpation: abdomen soft; abdomen nontender Musculoskeletal: Extremities: strength 5/5 throughout Skin: no rashes, warm and dry Psychiatric: Orientation: alert and oriented x 3 Results & Data Vital Signs (Past 12 Hours) Vital Signs Temp Pulse Pulse Pulse Resp BP BP 07/11/24 13:00 71 142/98 H 07/11/24 12:30 68 149/102 H 07/11/24 12:00 73 146/103 H 07/11/24 11:30 70 146/95 H 07/11/24 11:00 72 141/93 H 07/11/24 10:30 76 143/93 H 07/11/24 10:00 77 138/87 07/11/24 09:51 77 142/89 H 07/11/24 09:45 36.9 C 80 07/11/24 08:30 07/11/24 08:30 85 07/11/24 07:33 37 C 78 18 07/11/24 07:18 07/11/24 03:58 36.8 C 77 18 147/91 H BP Pulse Ox O2 Del Method O2 Del Method 07/11/24 13:00 07/11/24 12:30 07/11/24 12:00 07/11/24 11:30 07/11/24 11:00 07/11/24 10:30 07/11/24 10:00 07/11/24 09:51 07/11/24 09:45 07/11/24 08:30 Room Air 07/11/24 08:30 07/11/24 07:33 157/94 H 98 Room Air 07/11/24 07:18 Room Air 07/11/24 03:58 98 Room Air Laboratory Results 07/11/24 05:49 07/11/24 05:49 (3) Acute respiratory failure Respiratory failure complication: hypoxia Qualified Code(s): J96.01 - Acute respiratory failure with hypoxia
[2024-07-11 14:16] VITALS: BP 157/94; PULSE 80
[2024-07-11] MEDS: levoFLOXacin 250 MG TABLET PO SCH (14:33)
--- NOTE | 2024-07-11 14:57 | Discharge Summary ---
Date of Service July 11, 2024 Admission HPI Per Admitting Provider Fly De Luna is a 53y/o M with PMHx significant for acquired hypothyroidism, hyperphosphatemia, HTN, Page kidney, ESRD on hemodialysis [M/W/F since May 2024], left renal hematoma, anemia of chronic disease and depression who presented to the ED via EMS secondary to worsening SOB/dyspnea requiring CPAP therapy prior to arrival. History obtained from patient, at bedside and associated chart review. Patient was at his hemodialysis appointment this morning when he was found to be rather short of breath. EMS was therefore called. Per nursing staff at bedside in the ED, patient was notably hypoxic with an O2 sat of ~80% prior to arrival - thus prompting CPAP application. Patient was transitioned to BiPAP upon arrival to the ED with improvement of his O2 sat % into the low to mid 90s. CXR and physical exam in the ED were concerning for fluid overload. Dr. Turk had reached out to Dr. Bearden --> determination was made that the patient required emergent dialysis and needed to be admitted to the ICU in order to do so. reports that the patient has had a lingering cough since his previous admission back in March. However, he has started to produce some whitish- to mejia-colored sputum over the past few days and he has also been complaining of some increasing SOB with both rest/exertion. Denies any fevers but has been experiencing some chills here and there. He has been feeling progressively weaker over the past few days. Denies any diarrhea, urinary issues, chest pain or abdominal pain. mentions that he has gained a total of 6kg since Tuesday. His reports that he has been very cautious with daily fluid and sodium level intake limits. He is still making some urine. He has noticed some increasing swelling in his legs over the past few days. Admission Exam Per Admitting Provider General Appearance:Moderately built and nourished, no apparent distress Head: normocephalic, Atraumatic Eyes: normal inspection, EOMI Neck: supple, Trachea midline Respiratory/Chest: Decreased breath sounds, B/L rales, No accessory muscle use Cardiovascular: S1, S2, No murmur Abdomen/GI:Soft, Non tender, Bowel sounds present Extremities/Musculoskeletal:normal inspection, 2+ B/L edema Neurologic/Psych:AAOX3, grossly no focal neurological deficits Skin: normal color, warm Principal Diagnosis Acute on chronic respiratory failure with hypoxia Volume overload Rhinovirus infection Pneumonia Discharge Exam Constitutional: WD/WN, vitals as above, NAD, sitting up in bed, pleasant, conversing easily Respiratory: normal respiratory effort, lungs clear to auscultation, no wheeze, rales, rhonchi. Normal insp/exp effort, no accessory muscle use Cardiovascular: RRR, no murmur, no edema Vessels: no JVD or carotid bruit Chest: normal inspection of chest Abdomen: normal bowel sounds, soft, nontender, no hepatosplenomegaly Musculoskeletal: no cyanosis or clubbing, extremities motor strength 5/5 Skin: no rashes, warm and dry normal turgor Neurologic: PERRL, EOMI, accommodation nl, no face palsy, no dysarthria CN's II- XI intact bilaterally and moves all extremities Psychiatric: A+Ox3, euthymic affect Discharge Data Allergies Allergy/AdvReac Type Severity Reaction Status Date / Time naproxen Allergy Intermediate SWELLING Verified 07/09/24 08:08 EYES AND LIPS Penicillins Allergy Intermediate HIVES, Verified 07/09/24 08:08 SWELLING amoxicillin Allergy Unknown Verified 07/09/24 08:08 Consultations 07/09/24 07:33 ED Decision to Admit Stat 07/09/24 07:53 Consult [employer] Routine Consult Nephrology Routine Hospital Course (1) Acute hypoxic respiratory failure: (2) ESRD (end stage renal disease) on dialysis: Acute on chronic respiratory failure with hypoxia Volume overload Rhinovirus infection Pneumonia Patient presented with shortness of breath CXR on admission showed Cardiomegaly with extensive bilateral mixed interstitial and alveolar opacities suggestive of multifocal pneumonia. Pulmonary edema considered less likely. Patient was admitted to ICU and underwent emergent dialysis sessions and he was further treated with multiple sessions Repeat CXR showed improvement in pulmonary infiltrates. His oxygenation improved and he was in room air at the time of the discharge. He was treated with Levaquin during the hospitalization and was provided a prescription at discharge for completion of antibiotic for possible pneumonia. Please note the above document was generated using voice recognition software. It may contain grammatical, syntax or spelling errors. Any formal questions or concerns about the content, text or information contained within the body of this dictation should be directly addressed to the provider for clarification Total Time Total Time Spent Total Time Spent (In Minutes): 35 Total Time Includes: Examination of the Patient, Discharge Planning, Medication Reconciliation, Communication With Other Providers and Other Discharge Plan Discharge Items Patient Disposition: Home - Self-Care Reason For Visit: ACUTE HYPOXIC RESPIRATORY FAILURE Discharge Diagnosis: Acute on chronic respiratory failure with hypoxia Volume overload Rhinovirus infection Activity: Resume your previous activity Non-emergency contact: Primary Care Provider Call non-emergency contact if: you have any medication questions and your symptoms worsen Follow-up/Referrals: Sonya Dacosta MD [Primary Care Provider] - (Date & Time 07/23/2024 3:20 PM Provider Sonya Dacosta MD Department [facility] ) Diet: Regular Addtl Attending Provider Instructions: You were admitted to the hospital due to low oxygen level. You underwent hemodialysis during the hospitalization. You were also treated for pneumonia during the hospitalization. To complete the antibiotic course, you are prescribed Levaquin 250 mg once a day for 3 days. Follow-up with your primary care doctor as scheduled Pending Studies at Discharge: No Stand-Alone Forms: My [facility] [employer], Smoking Cessation Medications and DC Order Prescriptions: New levofloxacin 250 mg Tablet 250 mg PO Q24H 3 Days Qty: 3 0RF Continued fluticasone propionate 50 mcg/actuation spray,suspension 2 spray intranasal DAILY Qty: 15.8 6RF Rx Instructions: administer into each nostril levothyroxine 200 mcg tablet 200 mcg PO DAILY multivitamin with minerals Tablet 1 tab PO DAILY guaifenesin [Mucinex] 600 mg Tablet Extended Release 12hr 600 mg PO Q12H PRN (Reason: Congestion) carvedilol 25 mg tablet 25 mg PO BID Marylin-Yany 0.8 mg Tablet 1 tab PO DAILY albuterol sulfate 90 mcg/actuation HFA aerosol inhaler 2 puff INHALATION DAILY PRN (Reason: Shortness Of Breath Or Wheezing) sevelamer carbonate 800 mg tablet 800 mg PO TIDWMEAL cholecalciferol (vitamin D3) [Vitamin D3] 50 mcg (2,000 unit) Tablet 50 mcg PO DAILY amlodipine 10 mg tablet 10 mg PO QPM Discharge Orders: Discharge Order (Routine); Ordered 07/11/24 Ordered By: Anson Uribe Admission Data Admit Date/Time: 07/09/24 07:53 Attending Provider: Anson Uribe Admit Provider: William Amador Primary Care Provider: Sonya Dacosta Other Providers: Seferino Bateman; William Amador; Velia Bearden Other Interventions: Discharge Summary Assessment (RN) Last Done: 07/11/24 14:15
== END 2024-07-11 15:47 | disposition home or self-care (01) | DRG 640 ==
LOC: ED 06:58 → SUATTDRO 07:53 → 1E 07:53 → 2W 07-10 14:07

== ENCOUNTER 2024-08-20 06:24 | Inpatient (IN) ==
--- OUTSIDE RECORDS SUMMARY | 2024-08-20 06:31 | External Medical Summary | Summary of Care ---
Author Name Unknown Organization [facility] Address [address] [place] [address] Phone [phone] Care Team Providers Care Design Teacher Name Role Phone Sonya Dacosta MD Primary Care Provider [phone] Reason for Visit * Reason Onset Date Comments Surgery 08/15/2024 Encounter Details Date Type Department Care Team (Late st Contact Info) Description 08/15/2024 Telephone General Surgery Davion Gurrola [address] [address] Fly Rosado MD [address] [id number] Surgery Allergies Active Allergy Reactions Criticality Noted Date Comments Amoxicillin Hives 02/07/2014 Nsaids Edema face/lips/tongue High 02/07/2014 Penicillins Hives 02/07/2014 documented as of this encounter (statuses as of 08/15/2024) Medications Vitamin D3 50 MCG (1999 UT) Oral [...] a day with morning and evening meals. 180 Tablet 3 06/25/2024 Active Levothyroxine Sodium 200 MCG Oral Tablet (Levoxyl) Take 1 Tablet by mouth in the morning. Takes at bedtime. 90 Tablet 3 07/05/2024 Active Multivitamin Adult (Minerals) Oral Tablet 1 Tablet in the morning. 07/23/2024 Active documented as of this encounter (statuses as of 08/15/2024) Active Problems Problem Noted Date Diagnosed Date End stage renal disease 08/14/2024 Non-recurrent bilateral ingu inal hernia without obstruction or gangrene 08/14/2024 Anemia due to stage 5 chroni c kidney disease, not on chronic dialysis 07/23/2024 Renal hematoma, left 05/22/2024 ESRD on dialysis 05/22/2024 Page kidney 05/22/2024 Hyperphosphatemia 05/22/2024 HTN, goal below 140/90 04/20/2024 Chronic kidney disease with symptom management only, stage 4 (severe) 04/20/2024 Acquired hypothyroidism 04/20/2024 Costochondritis 03/27/2024 documented as of this encounter (statuses as of 08/15/2024) Resolved Problems Problem Noted Date Diagnosed Date Resolved Date Abdominal pain 05/22/2024 05/27/2024 VENKAT (acute kidney injury) 05/22/2024 Stage 3 chronic kidney disease 05/22/2024 07/23/2024 Anemia due to stage 3 chronic kidney disease 07/23/2024 Acute blood loss anemia 05/22/202407/21 Rib pain on right side 03/27/202407/23 documented as of this encounter (statuses as of 08/15/2024) Immunizations Name Administration Dates Next Due Pneumococcal Conjugate Vaccine, 20-valent (Prevn ar20) 07/23/2024 Seasonal Influenza, Trivalent, (IIV3), PF, (Fluz one) 07/23/2024 documented as of this encounter Social History Tobacco Use Types Packs/Day Years [...] Assigned at Male 04/26/2024 5:10 PM EDT Legal Sex Male 5:55 AM EST Gender Identity Male 04/26/2024 5:10 PM EDT Sexual Orientation Straight 04/26/2024 5: 10 PM EDT documented as of this encounter Functional Status * Are you deaf or do you have serious difficulty hearing? Answer Date of Assessment Author No 05/22/2024 5:48 AM EDT Lillie Gregory RN * Are you blind or do you have serious difficulty seeing, even when wearing glasses? Answer Date of Assessment Author No 05/22/2024 5:48 AM EDT Lillie Gregory RN * Do you have serious difficulty walking or climbing stairs? (5 years old or older) Answer Date of Assessment Author No 05/22/2024 5:48 AM EDT Lillie Gregory RN * Do you have difficulty dressing or bathing? (5 years old or older) Answer Date of Assessment Author No 05/22/2024 5:48 AM EDT Lillie Gregory RN * Because of a physical, mental, or emotional condition, do you have difficulty doing errands alone such as visiting a doctors office or shopping? (15 years old or older) Answer Date of Assessment Author No 05/22/2024 5:48 AM ISREALT Lillie Gregory RN documented as of this encounter Mental Status * Because of a physical, mental, or emotional condition, do you have serious difficulty concentrating, remembering, or making decisions? (5 years old or older) Answer Entry Date Author No 05/22/2024 5:48 AM ISREALT Lillie Gregory RN documented in this encounter Miscellaneous Notes * Telephone Encounter - Nahed Casas, JUAN RAMON - 08/15/2024 10:54 AM EST Call was made to patient to assist with scheduling his surgery with . Patient was made aware that the next available for the case that he is having done is not until 11/30/24. Patient was not thrilled that the provider was booking out that far, but understood. He was made aware that I will also put him on a list should something sooner arise. Patient was made aware that he will also need to notify [facility] in [place] to make them aware of when he is scheduled for. Provider would like him to have dialysis done the day prior to surgery and then he will also need to book an appointment with them for a week after for his dressing change. Patient verbalized his understandingand the below information was reviewed with the patient. Information will also be uploaded to his [facility] chart and mailed to him.Patient stated that he was not given a surgery packet with his boost/ soap. Patient was made aware that we can have him stop by the [employer] to get his supplies. The patient has been scheduled for outpatient surgery at [facility] on 11/30/[address] Rosado. The following pre surgical instructions have been reviewed verbally with the patient and written instructions provided. -The following preadmission testing has been ordered: none, all was completed. -The patient has been instructed to hold any Aspirin, Ibuprofen or NSAIDS 7 days prior to surgery: yes -The patient has been instructed to stop taking Fish oil and Vitamin E: yes -If the patient is currently taking Coumadin, Warfarin, Plavix, Eliquis or any other blood thinners, the following instructions have been given: NA -The patient has been instructed to shower with half of the provided chlorhexidine soap the night before surgery and the remaining soap the morning of surgery: yes -The patient has been instructed that they may have clear liquids from midnight the night before surgery up until 2 hours before surgery: yes -The patient has been instructed that they will need a sprinkling truck driver to bring you home after surgery: yes -The following post op appts have been scheduled: phone call follow up 12/03/24, post op 12/11/24 at 10:15Am with Dr. Rosado -The patient was provided with two Boost Breeze. First shake is to be consumed at 10 pm the night before surgery and the second to be consumed two hours before their arrival time: yes -Is the patient curently prescribed GLP- 1 medications? If so, they have been given the following instructions. NA documented in this encounter Plan of Treatment Upcoming Encounters Date Type Department Care Team (Late st Contact Info) Description 08/31/2024 1:00 PM EST [facility] [address] [place] [address] 10/23/2024 2:40 PM EST [facility] [address] [facility] [place] [address] Sonya Dacosta MD [address] [facility] [place] [address] 11/30/2024 Hospital Encounter OR [facility], Operating Room, [facility] - 4th Floor [address] [facility] [place] [id number] Fly Rosado MD [address] [address] 12/03/2024 8:15 AM EDT Scheduled Telephone General Surgery Davion Gurrola [address] [address] Davion, Nurse Gen Surg Agnes Hart RN [address] [address] 12/11/2024 10:15 AM EDT Office Visit General Surgery Davion Gurrola [address] [address] Fly Rosado MD [address] [address] 05/07/2025 10:00 AM EDT [facility] [address] [address] Palak Meier CRNP [address] [address] Scheduled Procedures Name Priority Associated Diagnoses Date/Ti wa ROBOTIC LAPAROSCOPIC REPAIR INGUINAL HERNIA INITIAL (BILATERAL) End stage renal disease (HCC) Non-recurrent bilateral inguinal hernia without obstruction or gangrene LAPAROSCOPIC INSERTION INTRAPERITONEAL CANNULA OR CATHETER End stage renal disease (HCC) Non-recurrent bilateral inguinal hernia without obstruction or gangrene Health Maintenance Due Date Last Done Comments Depression Screening 1982 DTap/Tdap Vaccines (1 - Tdap) 1989 Hepatitis B Vaccine (1 of 3 - 19+ 3-dose series) 1989 Cologuard 11/26/2015 Colonoscopy 11/26/2015 Colorectal Cancer Screening 11/26/2015 Fecal Occult Blood Test 11/26/2015 Sigmoidoscopy 11/26/2015 Zoster Vaccines (1 of 2) 2020 COVID-19 Vaccine (2023- season) 2024 TSH 07/23/2025 07/23/2024, 10/2023, 03/27/2024 Diabetes Screening 06/18/2027 06/18/2024, 0 05/28/2024, 05/27/2024, Additional history exists Lipid Panel 03/27/2029 03/27/2024 Influenza Vaccine (FLU shot) Completed 07/23/2024, 07/04/2013, 07/24/2012 Pneumococcal Vaccine: Pediatrics (0 to 5 Years) and At-Risk Patients (6 to 64 Years) Completed 07/23/2024 Nephrology Referral Discontinued 07/25/2024 HPV (Gardasil) Vaccine Aged Out No lo nger eligible based on patient's age to complete this topic MENINGOCOCCAL (MENACTRA/MENVEO) Aged Out No longer eligible based on patient's age to complete this topic documented as of this encounter Medical Devices Implanted Type Area Insurance Inspector Device Identifier Shelf Expiration Date Model / Serial / Lot Coil Emboli Tornado 3x2 - [id number] Implanted:Qty: 1 on 05/22/2024 at [facility] [employer] [id number] 11/14/2028 [id number] / / [id number] Coil Fibered 2 10mm [id number] - [id number] Implanted:Qty: 1 on 05/22/2024 at [facility] [employer] : NEURO INTR [id number] 08/08/2026 [id number] / / [id number] Coil Emboli Tornado 3x2 - [id number] Implanted:Qty: 1 on 05/22/2024 at [facility] [employer] [id number] 09/08/2028 [id number] / / [id number] Coil Emboli Tornado 3x2 - [id number] Implanted:Qty: 1 on 05/22/2024 at [facility] [employer] [id number] 08/22/2028 [id number] / / [id number] Cath Diag Cobra 2 [id number] - [id number] Implanted:Qty: 1 on 05/22/2024 at [facility] [employer] [id number] 07/24/2026 [id number] / / [id number] documented as of this encounter Advance Directives [...] Advance Directives occurred with: Patient Care Teams Design Teacher Relationship Specialty Start Date End Date Sonya Dacosta MD [address] [place] [address] PCP - General Family Medicine 04/27/24 documented as of this encounter
--- OUTSIDE RECORDS SUMMARY | 2024-08-20 06:32 | External Medical Summary | Summary of Care ---
Author Name Unknown Organization [facility] Address [address] [place] [address] Phone [phone] Care Team Providers Care Switch Box Installer Name Role Phone Sonya Dacosta MD Primary Care Provider [phone] Reason for Visit * Reason Onset Date Comments Hospital Follow-Up 07/12/2024 [facility] d/c 06/20 3 Encounter Details Date Type Department Care Team (Late st Contact Info) Description 07/12/2024 Telephone Family Practice [facility] [address] [place] [address] [facility] d[facility] 07/11) Allergies Active Allergy Reactions Criticality Noted Date Comments Amoxicillin Hives 02/07/2014 Nsaids Edema face/lips/tongue High 02/07/2014 Penicillins Hives 02/07/2014 documented as of this encounter (statuses as of 07/12/2024) Medications Medication Sig Dispensed Refills Start Date End Date Status Multivitamin Adult (Minerals) Oral Tablet 1 Tablet in the morning. 03/29/2024 Active Vitamin D3 50 MCG (1999 UT) Oral Capsule Take 1 Capsule by mouth in the morning. 90 Capsule 3 04/11/2024 Active Ventolin HFA 108 (90 Base) MCG/ACT Inhalation Aerosol SolutionIndications: Bronchitis, complicated Inhale 2 Puffs by mouth 4 [...] at bedtime. 90 Tablet 3 07/05/2024 Active levoFLOXacin 250 MG Oral Tablet (Levaquin) 07/11/2024 07/15/2024 Active documented as of this encounter (statuses as of 07/12/2024) Active Problems Problem Noted Date Diagnosed Date [...] as of this encounter (statuses as of 07/12/2024) Resolved Problems Problem Noted Date Diagnosed Date Resolved Date Abdominal pain 05/22/2024 05/27/2024 documented as of this encounter (statuses as of 07/12/2024) Social History Tobacco Use Types Packs/Day Years [...] Telephone Encounter - Sonya Dacosta MD - 07/12/2024 3:30 PM EDT Xray ordered, can have done next week * Telephone Encounter - Lori Bright RN - 07/12/2024 9:39 AM EDT Images from the original note were not included. Transitions of Care Note Reason for Referral:Recent Admission Phone visit for follow up: PACO Admitted to: [facility], Date: 07/09 Discharged to: home, Date: 07/11 Diagnosis driving hospitalization: Acute Respiratory failure Source/Contact: Patient SUBJECTIVE Consent: Verbal consent for review of hospital discharge: Yes REVIEW OF SYSTEMS Patient/Other Reports: Current patient/caregiver problems or concerns: feeling much better CV: Denies problems Pulmonary: Cough- occasional Chills/Sweats/Fever:Denies chills/sweats Denies fever Appetite:Denies problems such as nausea, vomiting, burning, decreased appetite Current diet: regular Bowel: denies problems Bladder: dialysis, produces scant urine Wound (If applicable): N/A Pain:Denies Sleep:Denies problems FUNCTIONAL STATUS: ADL'S: Needs Assistance With:N/A as pt is independent IADL'S: Needs Assistance With:N/A as pt is independent Cognitive and Mental Health: denies problems, alert and oriented x 3, and able to communicate, understand instructions, process information. MEDICATION RECONCILIATION Medications: Discharge med list reviewed with patient or caregiver New medication(s) filled since hospitalization- [facility] OBJECTIVE ASSESSMENT Medication Risk Assessment: No risks identified Did patient fail outpatient treatment? No Discharge instructions available for review? Yes PLAN Symptom Monitoring Interventions:Member/caregiver education - signs and symptoms to contact PrimaryCare (DO NOT DELETE-Three monique symptoms patient is to report to PCP) 1. SOB 2. Edema/weight gain 3. weakness Display AssociateSalesman/Owner of Care interventions/Action Plan: 5 - 7 day follow-up with PCP in place - Date: 07/23/24 Educated on role of PACO completed with patient/caregiver. Educated patient/caregiver on patient right to have input on PACO plan of care. Verification of Home Health/DME if indicated: NO n/a Identified Care Gaps: Yes Care Gaps closed this call: Appointment made or confirmed, Medication optimization, and Transition of Care follow-up communication Re-evaluation of Plan of Care and progress towards goals achievement: Patient education this visit: Verbal, as above Plan to instructed to call Primary Care Provider with change in symptoms or as needed before next follow-up, discharge needs met, verbalizes understanding and agrees with plan. Lori Bright RN documented in this encounter Plan of Treatment Upcoming Encounters Date Type Department Care Team (Late st Contact Info) Description 07/23/2024 3:20 PM EST Office Visit Family Practice [facility] [address] [facility] [place] [address] Sonya Dacosta MD [address] [facility] [place] [address] 07/25/2024 10:40 AM EST Office Visit Nephrology, [facility] [address] [place] [address] Juliano Stephens MD [address] [facility] [place] [address] 08/09/2024 10:30 AM EST Office Visit Cardiology, [facility] [address] [place] [address] Palak Meier CRNP [address] [place] [address] 08/31/2024 1:00 PM EST Imaging Cardiac Studies, [facility] [address] [place] [address] Scheduled Orders Name Type Priority Associated Diagnoses Orde r Schedule XR CHEST 2 VIEWS Medical Imaging Routine Pulmonary infiltrate Ordered: 07/12/2024 Health Maintenance Due Date Last Done Comments [...] this encounter Medical Devices Implanted Type Area Principal Java Software Engineer Device Identifier Shelf Expiration Date Model / Serial / Lot Coil Emboli Maria Estherdo 3x2 - [id number] Implanted:Qty: 1 on 05/22/2024 at [facility] [employer] [id number] 11/14/2028 [id number] / / [id number] Coil Fibered 2 10mm [id number] - [id number] Implanted:Qty: 1 on 05/22/2024 at [facility] [employer] NEURO INTR [id number] 08/08/2026 [id number] / / [id number] Coil Emboli Tornado 3x2 - [id number] Implanted:Qty: 1 on 05/22/2024 at [facility] [employer] [id number] 09/08/2028 [id number] / / [id number] Coil Emboli Tornado 3x2 - [id number] Implanted:Qty: 1 on 05/22/2024 at [facility] [employer] [id number] 08/22/2028 [id number] / / [id number] Cath Diag Cobra 2 [id number] - [id number] Implanted:Qty: 1 on 05/22/2024 at [facility] [employer] [id number] 07/24/2026 [id number] / / [id number] documented as of this encounter Visit Diagnoses Diagnosis Pulmonary infiltrate- Primary Other nonspecific abnormal finding of lung field documented in this encounter Advance Directives * [...] Advance Directives occurred with: Patient Care Teams Switch Box Installer Relationship Specialty Start Date End Date Sonya Dacosta MD [address] [facility] [place] [address] PCP - General Family Medicine 04/27/24 documented as of this encounter
--- OUTSIDE RECORDS SUMMARY | 2024-08-20 06:32 | External Medical Summary | Summary of Care ---
Author Name Unknown Organization [facility] Address [address] [place] [address] Phone [phone] Care Team Providers Care Teacher Industrial Arts Name Role Phone Sonya Dacosta MD Primary Care Provider [phone] Reason for Visit * Reason Onset Date Comments Advice 08/07/2024 Encounter Details Date Type Department Care Team (Late st Contact Info) Description 08/07/2024 Telephone Nephrology, [facility] [address] [place], [place] [id number] Services, Scheduling [address] [place] [address] Advice Allergies Active Allergy Reactions Criticality Noted Date Comments Amoxicillin Hives 02/07/2014 Nsaids Edema face/lips/tongue High 02/07/2014 Penicillins Hives 02/07/2014 documented as of this encounter (statuses as of 08/07/2024) Medications Vitamin D3 50 MCG (1999) Oral Capsule Take 1 Capsule by mouth [...] as of this encounter (statuses as of 08/07/2024) Active Problems Problem Noted Date Diagnosed Date Anemia due to stage 5 chroni c kidney disease, not on chronic dialysis 07/23/2024 Renal hematoma, left 05/22/2024 ESRD on dialysis 05/22/2024 Page kidney 05/22/2024 Hyperphosphatemia 05/22/2024 Acute blood loss anemia 05/22/2024 HTN, goal below 140/90 04/20/2024 Chronic kidney disease with symptom management only, stage 4 (severe) 04/20/2024 Acquired hypothyroidism 04/20/2024 Costochondritis 03/27/2024 documented as of this encounter (statuses as of 08/07/2024) Resolved Problems Problem Noted Date Diagnosed Date Resolved Date Abdominal pain 05/22/2024 05/27/2024 VENKAT (acute kidney injury) 05/22/2024 Stage 3 chronic kidney disease 05/22/2024 07/23/2024 Anemia due to stage 3 chronic kidney disease 07/23/2024 Rib pain on right side 03/27/202407/23 documented as of this encounter (statuses as of 08/07/2024) Immunizations Name Administration Dates Next Due Pneumococcal [...] 05/22/2024 5:48 AM EDT Lillie Gregory RN documented as of this encounter Mental Status * Because of a physical, mental, or emotional condition, do you have serious difficulty concentrating, remembering, or making decisions? (5 years old or older) Answer Entry Date Author No 05/22/2024 5:48 AM Lillie Meade RN documented in this encounter Miscellaneous Notes * Telephone Encounter - Aaliyah Palomares RN - 08/07/2024 9:11 AM EST TE with pt regarding several concerns about his dialysis. Concerned that they are removing too muchfluid. States he has passed out a few times while on dialysis. States his blood pressure dropped a few hours after meds the other evening after dialysis earlier that day. Requesting to speak with Dr Stephens. This nurse contacted Dr Stephens for follow up. He will meet with pt at Dialysis Center on AM.He is aware that pt wants less fluid removed. TE with pt following conversation with provider. He is aware that his concerns were voiced to provider and that he will be seen by provider at the dialysis center on Tuesday morning.Pt is aware that message was conveyed to provider that he wants less fluid removed due to bp dropping. Pt states that his questions have been answered at this time. * Telephone Encounter - Madelyn Espinoza OSA - 08/07/2024 8:41 AM EST Pt called asking to speak to Dr. Stephens's nurse, Aaliyah, concerning is dialysis. Please call the ptback at [phone]. Pt needs to talk to someone today before his next dialysis appt which is 11.20.24 at 5 AM. He thinks something is wrong. Thank you [facility] documented in this encounter Plan of Treatment Upcoming Encounters Date Type Department Care Team (Late st Contact Info) Description 08/09/2024 10:30 AM EST [facility] [address] [address] Palak Meier CRNP [address] [address] 08/14/2024 1:30 PM EST Office Visit General Surgery Davion Gurrola [address] [place] [address] [address] Fly Rosado MD [address] [place] [address] [address] 08/31/2024 1:00 PM EST [facility] [address] [address] 10/23/2024 2:40 PM EST Office Visit [facility] [address] [place] [address] Sonya Dacosta MD [address] [place] [address] Health Maintenance Due Date Last Done Comments Depression Screening 1982 DTap/Tdap Vaccines (1 - Tdap) 1989 Hepatitis B Vaccine (1 of 3 - 19+ 3-dose series) 1989 Cologuard 11/26/2015 Colonoscopy 11/26/2015 Colorectal Cancer Screening 11/26/2015 Fecal Occult Blood Test 11/26/2015 Sigmoidoscopy 11/26/2015 Zoster Vaccines (1 of 2) 2020 COVID-19 Vaccine (1 - 2023- season) 2024 TSH 07/23/2025 07/23/2024, 08/0 10/2023, 03/27/2024 Diabetes Screening 06/18/2027 06/18/2024, 0 [...] this encounter Medical Devices Implanted Type Area General Ophthalmologist Device Identifier Shelf Expiration Date Model / Serial / Lot Coil Emboli Tornado 3x2 - [id number] Implanted:Qty: 1 on 05/22/2024 at [facility] [employer] [id number] 11/14/2028 [id number] / / [id number] Coil Fibered 2 10mm [id number] - [id number] Implanted:Qty: 1 on 05/22/2024 at [facility] [employer] : NEURO INTR [id number] 08/08/2026 [id number] / / [id number] Coil Emboli Tornado 3x2 - [id number] Implanted:Qty: 1 on 05/22/2024 at [facility] [employer] [id number] 09/08/2028 [id number] / / [id number] Coil Emboli Tornado 3x2 - [id number] Implanted:Qty: 1 on 05/22/2024 at [facility] [employer] [id number] 08/22/2028 [id number] / / [id number] Cath Diag Cobra 2 1ijh09hs - [id number] Implanted:Qty: 1 on 05/22/2024 at [facility] [employer] [id number] 07/24/2026 [id number] 85 / / [id number] documented as of this encounter Advance Directives [...] Advance Directives occurred with: Patient Care Teams Teacher Industrial Arts Relationship Specialty Start Date End Date Sonya Dacosta MD [address] [place] [address] PCP - General Family Medicine 04/27/24 documented as of this encounter
--- OUTSIDE RECORDS SUMMARY | 2024-08-20 06:32 | External Medical Summary | Summary of Care ---
Author Name Unknown Organization [facility] Address [address] [place] [address] Phone [phone] Care Team Providers Care Engraver Wood Name Role Phone Sonya Dacosta MD Primary Care Provider [phone] Reason for Visit * Reason Comments Follow Up Encounter Details Date Type Department Care Team (Late st Contact Info) Description 08/09/2024 10:30 AM EST Office Visit Cardiology, [facility] [address] [facility] [place] [address] Palak Meier CRNP 132 [facility] [place] [address] Hospital discharge follow-up*; Chronic heart failure with preserved ejection fraction (HCC); ESRD on dialysis (HCC); Hypertensive urgency; HTN, goal below 140/90 Allergies Active Allergy Reactions Criticality Noted Date Comments Amoxicillin Hives 02/07/2014 Nsaids Edema face/lips/tongue High 02/07/2014 Penicillins Hives 02/07/2014 documented as of this encounter (statuses as of 08/09/2024) Medications Vitamin D3 50 MCG (1999 UT) [...] as of this encounter (statuses as of 08/09/2024) Active Problems Problem Noted Date Diagnosed Date [...] as of this encounter (statuses as of 08/09/2024) Resolved Problems Problem Noted Date Diagnosed Date Resolved Date Abdominal pain 05/22/2024 05/27/2024 VENKAT (acute kidney injury) 05/22/2024 Stage 3 chronic kidney disease 05/22/2024 07/23/2024 Anemia due to stage 3 chronic kidney disease 07/23/2024 Rib pain on right side 03/27/202407/23 documented as of this encounter (statuses as of 08/09/2024) Immunizations Name Administration Dates Next Due Pneumococcal [...] PM EDT documented as of this encounter Last Filed Vital Signs Vital Sign Reading Time Taken Comments Blood Pressure 168/90 08/09/2024 10:34 AM EST Pulse 80 08/09/2024 10:34 AM EST Temperature - - Respiratory Rate 14 08/09/2024 10:34 AM EST Oxygen Saturation - - Inhaled Oxygen Concentration - - Weight 100.2 kg (221 lb) 08/09/2024 10:34 AM EST Height - - Body Mass Index 28.39 05/22/2024 5:00 AM EDT documented in this encounter Functional Status * Are you [...] Entry Date Author No 05/22/2024 5:48 AM EDT Lillie Gregory RN documented in this encounter Progress Notes * Palak Meier CRNP - 08/09/2024 10:30 AM EST Images from the original note were not included. 08/09/2024 Cardiology Follow Up Primary Chicken Cutter: GABRIELLE Cardiac Problems: Hypertensive urgency Moderate concentric LVH HTN CKD HPI: Fly De Luna is a 53 year old male presents for hospital discharge follow up. Patient was last seen in our office by the undersigned on 05/09/2024 to establish care following a hospitalization in March due to hypertensive urgency and VENKAT. Patient was doing well from a cardiac perspective at the time follow up. Patient had a recent hospitalization at [facility] from 07/09/2024 through 07/11/2024for acute respiratory failure pulmonary edema end-stage renal disease CHF and hypertensive urgency.Review of hospital records notes the patient was admitted for acute respiratory distress requiring CPAP any emergent hemodialysis treatment. Patient's clinical status improved with emergent dialysis as well as treatment with Levaquin during course of hospitalization for a likely multifocal pneumonia. Troponins mildly elevated with a flat trend 55.4 to 75.3 peak Patient presents today feeling fair. He is going for evaluation for potential PD dialysis cath placement. Denies any recurrence of acute dyspnea, no lower extremity swelling, no chest pain since hospital Discharge. Continues on HD treatment 3x per week. BP today well above target. He states that at home his systolic readings will vary from 130-160's and typically they remain elevated at dialysis. I do not have an active HD record for review. Compliant on all medication therapies with no untoward effects. REVIEW OF SYSTEMS: See HPI for pertinent [...] Normal balance, No headaches and No weakness. Review of patient's allergies indicates: Allergen Reactions Nsaids Edema face/lips/tongue Amoxicillin Hives Penicillins Hives Current Outpatient Medications Medication Sig Dispense Refill Vitamin D3 50 MCG (1999 UT) Oral Capsule Take 1 Capsule by mouth in the morning. 90 Capsule 3 Ventolin HFA 108 (90 Base) MCG/ACT Inhalation Aerosol Solution Inhale 2 Puffs by mouth 4 times a day as needed for Wheezing. 18 g 1 amLODIPine Besylate 10 MG Oral Tablet (Norvasc) Take 0.5 Tablets by mouth in the morning and 0.5 Tablets before bedtime. 90 Tablet 5 Sevelamer Carbonate 800 MG Oral Tablet (Renvela) Take 1 Tablet by mouth in the morning and 1 Tabletat noon and 1 Tablet in the evening. Take with meals. 30 Tablet 0 Carvedilol 25 MG Oral Tablet (Coreg) Take 1 Tablet by mouth 2 times a day with morning and evening meals. 180 Tablet 3 Levothyroxine Sodium 200 MCG Oral Tablet (Levoxyl) Take 1 Tablet by mouth in the morning. Takes at bedtime. 90 Tablet 3 Multivitamin Adult (Minerals) Oral Tablet 1 Tablet in the morning. No current facility-administered medications for this visit. Past Medical History: Diagnosis Date Depression Hypothyroidism No family history on file. Social History Socioeconomic History Marital status: Significant Other Tobacco Use Smoking status: Never Smokeless tobacco: Never Vaping Use Vaping status: Never Used Substance and Sexual Activity Alcohol use: Not Currently Comment: 2 beers a month Drug use: No Social Needs Financial Resource Strain: Low Risk (04/26/2024) Financial Resource Strain Do you have any trouble paying for your medications, or do you think you might in the future? (Adult - for ages 18 years and over): No Food Insecurity: No Food Insecurity (04/26/2024) Food Insecurity Do you need food for this week? (Adult - for ages 18 years and over): No Transportation Needs: No Transportation Needs (04/26/2024) Transportation Needs Has lack of transportation kept you from medical appointments, meetings, work, or from getting things needed for daily living? Check all that apply. (Adult - for ages 18 years and over): No Social Connections: Socially Integrated (04/26/2024) Social Connections How often do you feel lonely or isolated from those around you? (Adult - for ages 18 years and over): Rarely Housing Stability: Low Risk (04/26/2024) Housing Stability Do you currently live in a fdc or have no steady place to sleep at night? (Adult - for ages 18 years and over): No Are you homeless or worried that you might be in the future? (Adult - for ages 18 years and over): No OBJECTIVE/PHYSICAL EXAMINATION: BP 168/90 | Pulse 80 | Resp 14 | Wt 100.2 kg (221 lb) | BMI 28.39 kg/m | BSA 2.29 m General: No acute distress. A+Ox3. HEENT: [...] DATA Labs & Imaging Reviewed Below: Echocardiogram 07/09/2024 [facility] EKG 07/09/[address]-T wave abnormality, cited previously Echocardiogram 03/2024 echocardiogram revealing moderate concentric left ventricular hypertrophy, LVEF in the range of 65 to 70%, with grade 2 diastolic dysfunction and evidence of elevated left-sided filling pressure by Doppler criteria per the report, no significant valvular disease. ASSESSMENT/PLAN: 53 year old year old male 1. Hospital discharge follow-up 2. Chronic heart failure with preserved ejection fraction (HCC) 3. ESRD on dialysis (HCC) 4. Hypertensive urgency 5. HTN, goal below 140/90 -Patient is stable since time of discharge, but blood pressure remain markedly elevated. -Continue on Amlodipine, and Carvediolol at this time. Currently on max dose. I will send a messageover to Nephrology to inquire about his blood pressures and thoughts on additional medication therapies such as Hydralazine. -Patient is slated to see Dr. Rosado in the next few weeks for consideration of a PD cath placement. He is stable from a cardiac perspective, and would not need any additional testing to pursue this procedure if needed. DISPOSITION: Follow up 6-7 months or if symptoms worsen/fail to improve. All questions were answered to the patients satisfaction. Patient advised to report to ED with any and all emergencies. The patient agrees to the above plan and will call with additional questions or concerns. ANDIE Birch [facility] [address] I spent a total of 35 minutes on the date of service in preparation, delivery, and documentation ofthe care provided to Fly De Luna excluding any time spent in the performance of separately billed services. This chart was completed in part utilizing [employer] Speech Voice Recognition Software. Grammatical errors, random word insertions, pronoun errors, and incomplete sentences are an occasional consequence of this system due to software limitations, ambient noise, and hardware issues. Any formal questions or concerns about the content, text, or information contained within the body of this dictation should be directly addressed to the provider for clarification. documented in this encounter Nursing Notes * Natalee Pham CMA - 08/09/2024 10:25 AM EST Examination Room: 4 Name: Fly De Luna Date of : (1970). Reason for Visit: FU Interim Hospitalization(s): [facility] 07/09-07/11 Problems/Concerns: Not happy with dialysis providers, versenia. Swelling down. BP up and down. Chest Pain/SOB: denies [facility] Discussed: Yes [facility] is a way you can talk to [...] Care Team (Late st Contact Info) Description 08/14/2024 1:30 PM EST Office Visit General Surgery [facility] Gurrola [address] [place] [address] Fly Rosado MD [address] [place] [address] 08/31/2024 1:00 PM EST Imaging Cardiac Studies, [facility] [address] [place] [address] 10/23/2024 2:40 PM EST Office Visit [facility] [address] [facility] [place] [address] Sonya Dacosta MD 200 [facility] [place] [address] 05/07/2025 10:00 AM EDT Office Visit Cardiology, [facility] [address] [place] [address] Palak Meier CRNP [address] [place] [address] Health Maintenance Due Date Last Done Comments [...] this encounter Medical Devices Implanted Type Area Seat Scooper Machine Device Identifier Shelf Expiration Date Model / Serial / Lot Coil Emboli Tornado 3x2 - [id number] Implanted:Qty: 1 on 05/22/2024 at [facility] [employer] [id number] 11/14/2028 [id number] / / [id number] Coil Fibered 2 10mm [id number] - [id number] Implanted:Qty: 1 on 05/22/2024 at [facility] [employer] : NEURO INTR [id number] 08/08/2026 [id number] / / [id number] Coil Emboli Tornado 3x2 - [id number] Implanted:Qty: 1 on 05/22/2024 at [facility] [employer] [id number] 09/08/2028 [id number] / / [id number] Coil Emboli Tornado 3x2 - [id number] Implanted:Qty: 1 on 05/22/2024 at [facility] [employer] [id number] 08/22/2028 [id number] / / [id number] Cath Diag Cobra 2 [id number] - [id number] Implanted:Qty: 1 on 05/22/2024 at [facility] [employer] [id number] 07/24/2026 [id number] / / [id number] documented as of this encounter Visit Diagnoses Diagnosis Hospital discharge follow-up- Primary Other follow-up examination Chronic heart failure with preserved ejection fraction (HCC) ESRD on dialysis (HCC) End stage renal disease Hypertensive urgency Unspecified essential hypertension HTN, goal below 140/90 Unspecified essential hypertension documented in this encounter Advance Directives * [...] Advance Directives occurred with: Patient Care Teams Engraver Wood Relationship Specialty Start Date End Date Sonya Dacosta MD [address] [place] [address] PCP - General Family Medicine 04/27/24 documented as of this encounter"
--- OUTSIDE RECORDS SUMMARY | 2024-08-20 06:32 | External Medical Summary ---
Author Name Unknown Address Unknown Organization [id number]:LABORATORY [facility] - [address] [place] [address] Laboratory Report Ordering Provider Test Date Status SALENA BARNETT 07/23/2024 16:12:00 Final Observation Date Value Abnormality Reference (Units ) Status TSH 07/23/2024 16:12:00 5.42 Above high normal 0. 27-4.20 (uIU/mL) Final Performing Location LAB[facility]ATORY [facility] - [address] [place] [address]
--- OUTSIDE RECORDS SUMMARY | 2024-08-20 06:32 | External Medical Summary | Summary of Care ---
Author Name Unknown Organization [facility] Address [address] [place] [address] Phone [phone] Care Team Providers Care Electronic Scale Tester Name Role Phone Sonya Dacosta MD Primary Care Provider [phone] Reason for Visit * Reason Onset Date Comments Test Results 04/25/2024 Encounter Details Date Type Department Care Team (Late st Contact Info) Description 04/25/2024 Telephone General Internal Medicine [facility] [address] [facility] [place] [address] Pretty Stephens MD [address] [place] [address] Test Results Allergies Active Allergy Reactions Criticality Noted Date Comments Amoxicillin Hives 02/07/2014 Nsaids Edema face/lips/tongue High 02/07/2014 Penicillins Hives 02/07/2014 documented as of this encounter (statuses as of 07/25/2024) Medications Medication Sig Dispensed Refills Start Date End Date Status Vitamin D3 50 MCG (1999) Oral Capsule Take 1 Capsule by mouth in the morning. 90 Capsule 3 04/11/2024 Active Ventolin HFA 108 (90 Base) MCG/ACT Inhalation Aerosol SolutionIndications:B ronchitis, complicated Inhale 2 Puffs by mouth 4 times a day as needed for Wheezing. 18 g 1 04/23/2024 Active documented as of this encounter (statuses as of 07/25/2024) Active Problems Problem Noted Date Diagnosed Date [...] as of this encounter (statuses as of 07/25/2024) Resolved Problems Problem Noted Date Diagnosed Date Resolved Date Abdominal pain 05/22/2024 05/27/2024 VENKAT (acute kidney injury) 05/22/2024 Stage 3 chronic kidney disease 05/22/2024 07/23/2024 Anemia due to stage 3 chronic kidney disease 07/23/2024 Rib pain on right side 03/27/202407/23 documented as of this encounter (statuses as of 07/25/2024) Social History Tobacco Use Types Packs/Day Years [...] encounter Miscellaneous Notes * Telephone Encounter - Pretty Stephens MD - 04/25/2024 2:00 PM EDT Noted * Telephone Encounter - Mariela Siddiqi MED ASSIST - 04/25/2024 1:33 PM EDT Patient aware and receptive to instructions. He took his medication already today. He will hold the aldactone tomorrow and 1/2 tab of lasix tomorrow and repeat his BMP Tuesday morning. * Telephone Encounter - Mariela Siddiqi MED ASSIST - 04/25/2024 1:27 PM EDT ----- Message from Pretty Stephens MD sent at 04/25/2024 1:12 PM EDT ----- Kidney function which can be either combination of lasix and aldactone, dehydration - lower lasix to 1/2 tab ( 20 mg ) and hold aldactone . Repeat BMP Tomorrow and keep f/u with PCP in 2 days Sodium improved which is likely from getting rid of extra fluid form lasix and aldactone . Check how is swelling and breathing and cough while on water pills ? Dr Milton LOPEZ and if any other recommendation Electronically signed by Mariela Siddiqi MED [employer] at 04/25/2024 1:27 PM EDT documented in this encounter Plan of Treatment Upcoming Encounters Date Type Department Care Team (Late st Contact Info) Description 08/09/2024 10:30 AM EST Office Visit Cardiology, [facility] [address] [place] [address] Palak Meier CRNP 132 [facility] [place] [address] 08/31/2024 1:00 PM EST Imaging Cardiac Studies, [facility] [address] [place] [address] 10/23/2024 2:40 PM EST Office Visit Family Practice [facility] [address] [facility] [place] [address] Sonya Dacosta MD [address] [facility] [place] [address] Health Maintenance Due Date Last Done Comments Depression Screening 1982 DTap/Tdap Vaccines (1 - Tdap) 1989 Hepatitis B Vaccine (1 of 3 - 19+ 3-dose series) 1989 Cologuard 11/26/2015 Colonoscopy 11/26/2015 Colorectal Cancer Screening 11/26/2015 Fecal Occult Blood Test 11/26/2015 Sigmoidoscopy 11/26/2015 Zoster Vaccines (1 of 2) 2020 COVID-19 Vaccine ( - 2023- season) 2024 TSH 07/23/2025 07/23/2024, 0810/2023, 03/27/2024 Diabetes Screening 06/18/2027 06/18/2024, 0 05/28/2024, [...] this encounter Medical Devices Implanted Type Area Wet Sander Device Identifier Shelf Expiration Date Model / Serial / Lot Coil Emboli Tornado 3x2 - [id number] Implanted:Qty: 1 on 05/22/2024 at [facility] [id number] 11/14/2028 [id number] / / [id number] Coil Fibered 2 10mm [id number] - [id number] Implanted:Qty: 1 on 05/22/2024 at [facility] [employer] : NEURO INTR [id number] 08/08/2026 [id number] / / [id number] Coil Emboli Tornado 3x2 - [id number] Implanted:Qty: 1 on 05/22/2024 at [facility] [id number] 09/08/2028 [id number] / / [id number] Coil Emboli Tornado 3x2 - [id number] Implanted:Qty: 1 on 05/22/2024 at [facility] [id number] 08/22/2028 [id number] / / [id number] Cath Diag Cobra 2 [id number] - [id number] Implanted:Qty: 1 on 05/22/2024 at [facility] [employer] [id number] 07/24/2026 H78 [id number] / / [id number] documented as of this encounter Advance Directives [...] Advance Directives occurred with: Patient Care Teams Electronic Scale Tester Relationship Specialty Start Date End Date Sonya Dacosta MD [address] [place] [address] PCP - General Family Medicine 04/27/24 documented as of this encounter
--- OUTSIDE RECORDS SUMMARY | 2024-08-20 06:32 | External Medical Summary ---
Author Name Unknown Address Unknown Organization K01:LABORATORY [facility] - [address] [place] [address] Laboratory Report Ordering Provider Test Date Status SALENA BARNETT 07/23/2024 16:12:00 Final Observation Date Value Abnormality Reference (Units ) Status Vitamin B12 07/23/2024 16:12:00 [phone] (pg/mL) Final Performing Location LABORATORY [facility] - [address] [place] [address]
--- OUTSIDE RECORDS SUMMARY | 2024-08-20 06:32 | External Medical Summary ---
Author Name Unknown Address Unknown Organization [id number]:LABORATORY [facility] - [address] [place] [address] Laboratory Report Ordering Provider Test Date Status SALENA BARNETT 07/23/2024 16:12:00 Final Deficient: <20 ng/mL
Ins ufficient: 20-29 ng/mL
Recommended/Optimum:30-50 ng/mL

Vitamin D intoxication is rare. If suspicious of Vitamin D toxicity, evaluation of serum Calcium and PTH is recommended. Observation Date Value Abnormality Reference (Units ) Status 25-OH Vitamin D total 07/23/2024 16:12:00 37 >19 (ng/mL) Final Performing Location LABORATORY [facility] - [address] [place] [address]
--- OUTSIDE RECORDS SUMMARY | 2024-08-20 06:32 | External Medical Summary ---
Author Name Unknown Address Unknown Organization K01:[facility] [address] [facility] [address] [place] [address] Laboratory Report Ordering Provider Test Date Status SALENA BARNETT 07/23/2024 16:12:00 Final Observation Date Value Abnormality Reference (Units ) Status WBC, Total 07/23/2024 16:12:00 8.34 4.00-10.80 (K/uL) Final RBC 07/23/2024 16:12:00 3.46 4.50-5.25 (M/uL) Final Hemoglobin 07/23/2024 16:12:00 11.0 Below low normal 14.0-16.8 (g/dL) Final HCT 07/23/2024 16:12:00 34.7 Below low normal 40.0-48.4 (%) Final MCV 07/23/2024 16:12:00 100.3 82.0-99.5 (fL) Final MCH 07/23/2024 16:12:00 31.8 27.0-34.0 (pg) Final MCHC 07/23/2024 16:12:00 31.7 32.0-36.0 (g/dL) Final RDW 07/23/2024 16:12:00 17.9 11.5-15.5 (%) Final Platelets 07/23/2024 16:12:00 215 140-400 (K/uL) Final MPV 07/23/2024 16:12:00 10.0 6.6-11.1 (fL) Final Nucleated erythrocytes/100 leukocytes [Ratio] in Blood by Automated count 07/23/2024 16:12:00 0 <=0 (/100 WBCs) Final Performing Location LABORATORY [facility] - [address] [place] [address]
--- OUTSIDE RECORDS SUMMARY | 2024-08-20 06:32 | External Medical Summary | Summary of Care ---
Author Name Unknown Organization [facility] Address [address] [place] [address] Phone [phone] Care Team Providers Care Certified Health Education Specialist Name Role Phone Sonya Dacosta MD Primary Care Provider Reason for Visit * Reason Onset Date Comments Hospital Follow-Up 07/12/2024 [facility] d/c 06/20 3 Encounter Details Date Type Department Care Team (Late st Contact Info) Description 07/12/2024 Telephone Family Practice [facility] [address] [place] [address] [facility] d/[facility] 07/11) Allergies Active Allergy Reactions [...] visit for follow up: PACO Admitted to: [facility], Date: 07/09 Discharged to: home, Date: [...] 1. SOB 2. Edema/weight gain 3. weakness Telecommunications Switch TechnicianFacility Supervisor of Care interventions/Action Plan: 5 - 7 [...] 3:20 PM EST Office Visit Family Practice [facility] 200 [facility] [place] [address] Sonya Dacosta MD 200 [facility] [place] [address] 07/25/2024 10:40 AM EST Office Visit Nephrology, [facility] [address] [place] [address] Juliano Stephens MD [address] [facility] [place] [address] 08/09/2024 10:30 AM EST Office Visit Cardiology, [facility] [address] [place] [address] Palak Meier CRNP [address] [place] [address] 08/31/2024 1:00 PM EST Imaging Cardiac Studies, [facility] [address] [place] [address] Scheduled Orders Name Type Priority Associated Diagnoses [...] this encounter Medical Devices Implanted Type Area Shell Grader Device Identifier Shelf Expiration Date Model / Serial / Lot Coil Emboli Maria Estherdo 3x2 - [id number] Implanted:Qty: 1 on 05/22/2024 at [facility] [employer] [id number] 11/14/2028 [id number] / / [id number] Coil Fibered 2 10mm [id number] - [id number] Implanted:Qty: 1 on 05/22/2024 at [facility] [employer] : [employer] [id number] 08/08/2026 [id number] / / [id number] Coil Emboli Tornado 3x2 - [id number] Implanted:Qty: 1 on 05/22/2024 at [facility] [employer] [id number] 09/08/2028 [id number] / / [id number] Coil Emboli Tornado 3x2 - [id number] Implanted:Qty: 1 on 05/22/2024 at [facility] [employer] [id number] 08/22/2028 [id number] / / [id number] Cath Diag Cobra 2 [id number] - [id number] Implanted:Qty: 1 on 05/22/2024 at [facility] [employer] [id number] 07/24/2026 H78 [id number] / / [id number] documented as of this encounter Visit Diagnoses [...] Directives occurred with: Patient Care Teams Certified Health Education Specialist Relationship Specialty Start Date End Date Sonya Dacosta MD 200 [facility] [place] [address] PCP - General Family Medicine 04/27/24 documented as of this encounter
--- OUTSIDE RECORDS SUMMARY | 2024-08-20 06:32 | External Medical Summary | Summary of Care ---
Author Name Unknown Organization [facility] Address [address] [place] [address] Phone [phone] Care Team Providers Care Splitter Machine Name Role Phone Sonya Dacosta MD Primary Care Provider Reason for Visit * Reason Onset Date Comments Test Results Lab 04/20/2024 Encounter Details Date Type Department Care Team (Late st Contact Info) Description 04/20/[address] [id number] Cinda Schneider MD [address] [place] [address] [place] [id number] Test Results Lab Allergies Active Allergy Reactions Criticality Noted Date Comments Amoxicillin Hives 02/07/2014 Nsaids Edema face/lips/tongue High 02/07/2014 Penicillins Hives 02/07/2014 documented as of this encounter (statuses as of 07/20/2024) Medications Medication Sig Dispensed Refills Start Date [...] for Wheezing. 18 g 1 04/23/2024 Active Levothyroxine Sodium 200 MCG Oral Tablet (Levoxyl) Take 1 Tablet by mouth in the morning. Takes at bedtime . 12/28/2023 4 Discontinued(Refi ll) Spironolactone 25 MG Oral Tablet (Aldactone) Take 1 Tablet by mouth in the morning. 30 Tablet 5 04/11/2024 4 Discontinued([facility] List Clean Up) amLODIPine Besylate 10 MG Oral Tablet (Norvasc)Indicat ions:Hypertensio n goal BP (blood pressure) < 140/90 Take 0.5 Tablets by mouth in the morning. 30 Tablet 5 04/11/2024 4 Discontinued documented as of this encounter (statuses as of 07/20/2024) Active Problems Problem Noted Date Diagnosed Date [...] as of this encounter (statuses as of 07/20/2024) Resolved Problems Problem Noted Date Diagnosed Date Resolved Date Abdominal pain 05/22/2024 05/27/2024 documented as of this encounter (statuses as of 07/20/2024) Social History Tobacco Use Types Packs/Day Years [...] Telephone Encounter - Pretty Stephens MD - 04/23/2024 3:52 PM EDT Noted * Telephone Encounter - SiddiqiMariela cooper MED ASSIST - 04/23/2024 3:35 PM EDT Patient aware and receptive to instructions. Dr. Rose called the patient today. He did sisal picker the urine container today, will have the labs drawn Tuesday morning when he's dropping off the urine container and will have his BP checked then. * Telephone Encounter - Pretty Stephens MD - 04/23/2024 3:24 PM EDT Please have him get BMP and monoclonal gammopathy as ordered along with cynthia/renin ration ordered by Dr Rose Today and get his BP checked with [place] . That way I can further adjust his lasix Some cough can be from pneumonia/ bronchitis or CHF . Albuterol sent to be taken every 6 hours if needed for cough and chest tightness RTW signed * Telephone Encounter - Mariela Siddiqi MED ASSIST - 04/23/2024 11:40 AM EDT Spoke with patient. He states that the leg swelling has went down the last 2 days. His left hand has improved but the right hand not as much. The tingling in the finger tips have also improved. He states that his blood pressure is still elevated, he is very fatigued and gets short of breath intermittently. He does have headache and his eyes hurt. He is still experiencing a productive cough but it is difficult to get it to be productive. He does have a follow up scheduled with Dr. Dacosta on Tuesday and will probably stay off work until then. He is asking if there is something that can be done to help with his kidneys such dialysis? * Telephone Encounter - Mariela Siddiqi MED ASSIST - 04/20/2024 5:01 PM EDT Patient aware and receptive to instructions. He would like the lasix sent to the [facility]. He is asking if he should return to work? * Telephone Encounter - Mariela Siddiqi MED ASSIST - 04/20/2024 4:56 PM EDT ----- Message from Pretty Stephens MD sent at 04/20/2024 4:50 PM EDT ----- Only BMP back - kidney function worse and rest labs not back yet CXR - prelim result - subtle heart failure or fluid build up. There are b/l pneumonia which looks better and would take 3-4 more weeks to completely disappear on x-ray Suggest to start lasix 40 mg lasix daily , continue aldactone and cont rest BP meds as directed andchanged by Dr Rose . This should help with hand and leg swelling and BP as well . Also restrict fluid in take to 1.5 L/day ( not 2 L/day ) and salk restriction to < 2 g/day - avoid salty food. BMP in 3 days for close follow up . Keep f/u with PCP for recheck documented in this encounter Plan of Treatment Upcoming Encounters Date Type Department Care Team (Late st Contact Info) Description 07/23/2024 3:20 PM EST Office Visit Family Practice [facility] [address] [place] [address] Sonya Dacosta MD [address] [place] [address] 07/25/2024 10:40 AM EST Office Visit Nephrology, [facility] [address] [place] [address] [address] Juliano Stephens MD [address] [place] [address] 08/09/2024 10:30 AM EST Office Visit Cardiology, [facility] [address] [facility] [place] [address] Palak Meier CRNP [address] [place] [address] 08/31/2024 1:00 PM EST Imaging Cardiac Studies, [facility] [address] [place] [address] Health Maintenance Due Date Last Done Comments [...] this encounter Medical Devices Implanted Type Area Jogger Operator Device Identifier Shelf Expiration Date Model / Serial / Lot Coil Emboli Tornado 3x2 - [id number] Implanted:Qty: 1 on 05/22/2024 at [facility] [employer] [id number] 11/14/2028 [id number] / / [id number] Coil Fibered 2 10mm [id number] - [id number] Implanted:Qty: 1 on 05/22/2024 at [facility] [employer] : [employer] [id number] 08/08/2026 [id number] / / [id number] Coil Emboli Tornado 3x2 - [id number] Implanted:Qty: 1 on 05/22/2024 at [facility] [employer] [id number] 09/08/2028 [id number] / / [id number] Coil Emboli Tornado 3x2 - [id number] Implanted:Qty: 1 on 05/22/2024 at [facility] [employer] [id number] 08/22/2028 [id number] / / [id number] Cath Diag Cobra 2 8stx82ub - [id number] Implanted:Qty: 1 on 05/22/2024 at [facility] [employer] [id number] 07/24/2026 H78 [id number] / / [id number] documented as of this encounter Visit Diagnoses Diagnosis Chronic kidney disease with symptom management only, stage 4 (severe) (HCC)- Primary HTN, goal below 140/90 Unspecified essential hypertension Bronchitis, complicated Bronchitis, not specified as acute or chronic documented in this encounter Advance Directives * [...] Advance Directives occurred with: Patient Care Teams Splitter Machine Relationship Specialty Start Date End Date Sonya Dacosta MD [address] [place] [address] PCP - General Family Medicine 04/27/24 documented as of this encounter
--- OUTSIDE RECORDS SUMMARY | 2024-08-20 06:32 | External Medical Summary | Summary of Care ---
Author Name Unknown Organization [facility] Address [address] [place] [address] Phone [phone] Care Team Providers Care Paper Sorter Name Role Phone Sonya Dacosta MD Primary Care Provider [phone] Reason for Visit * Reason Comments Outpatient Testing Encounter Details Date Type Department Care Team (Late st Contact Info) Description 07/23/2024 4:10 PM EST Laboratory Laboratory [facility] [address] [place] [id number] [facility] [address] [facility] [address] Anemia due to stage 5 chronic kidney disease, not on chronic dialysis (HCC); Malaise and fatigue; Numbness of fingers of both hands; Vitamin D deficiency Allergies Active Allergy Reactions Criticality Noted Date Comments Amoxicillin Hives 02/07/2014 Nsaids Edema face/lips/tongue High 02/07/2014 Penicillins Hives 02/07/2014 documented as of this encounter (statuses as of 07/23/2024) Medications Medication Sig Dispensed Refills Start Date [...] as of this encounter (statuses as of 07/23/2024) Active Problems Problem Noted Date Diagnosed Date [...] as of this encounter (statuses as of 07/23/2024) Resolved Problems Problem Noted Date Diagnosed Date Resolved Date Abdominal pain 05/22/2024 05/27/2024 VENKAT (acute kidney injury) 05/22/2024 Stage 3 chronic kidney disease 05/22/2024 07/23/2024 Anemia due to stage 3 chronic kidney disease 07/23/2024 Rib pain on right side 03/27/202407/23 documented as of this encounter (statuses as of 07/23/2024) Immunizations Name Administration Dates Next Due Pneumococcal [...] 07/25/2024 10:40 AM EST Office Visit Nephrology, [facility] [address] [place] [address] Juliano Stephens MD [address] [place] [address] 08/09/2024 10:30 AM EST Office Visit Cardiology, [facility] [address] [place] [address] Palak Meier CRNP [address] [place] [address] 08/31/2024 1:00 PM EST Imaging Cardiac Studies, [facility] [place] [address] 10/23/2024 2:40 PM EST Office Visit Family Practice [facility] [address] [place] [address] Sonya Dacosta MD [address] [place] [address] Pending Results Name Type Priority Associated Diagnoses Date /Time TSH WITH FREE T4 IF INDICATED Lab Routine Anemia due to stage 5 chronic kidney disease, not on chronic dialysis (HCC) Malaise and fatigue 07/23/2024 4:12 PM EST VITAMIN B12 Lab Routine Numbness of fingers of both hands 07/23/2024 4:12 PM EST CBC WITH WBC DIFFERENTIAL Lab Routine Anemia due to stage 5 chronic kidney disease, not on chronic dialysis (HCC) Malaise and fatigue Numbness of fingers of both hands 07/23/2024 4:12 PM EST FERRITIN Lab Routine Anemia due to stage 5 chronic kidney disease, not on chronic dialysis (HCC) Malaise and fatigue 07/23/2024 4:12 PM EST IRON SCREEN, INCLUDING TIBC Lab Routine Anemia due to stage 5 chronic kidney disease, not on chronic dialysis (HCC) Malaise and fatigue 07/23/2024 4:12 PM EST 25-HYDROXY VITAMIN D Lab Routine Malaise and fatigue Vitamin D deficiency 07/23/2024 4:12 PM EST CBC Lab Routine Anemia due to stage 5 chronic kidney disease, not on chronic dialysis (HCC) Malaise and fatigue Numbness of fingers of both hands 07/23/2024 4:12 PM EST DIFFERENTIAL, AUTOMATED Lab Routine Anemia due to stage 5 chronic kidney disease, not on chronic dialysis (HCC) Malaise and fatigue Numbness of fingers of both hands 07/23/2024 4:12 PM EST Health Maintenance Due Date Last Done Comments Depression Screening 1982 DTap/Tdap Vaccines (1 - Tdap) 1989 Hepatitis B Vaccine (1 of 3 - 19+ 3-dose series) 1989 Cologuard 11/26/2015 Colonoscopy 11/26/2015 Colorectal Cancer Screening 11/26/2015 Fecal Occult Blood Test 11/26/2015 Sigmoidoscopy 11/26/2015 Zoster Vaccines (1 of 2) 2020 COVID-19 Vaccine ( - season) 2024 TSH 04/20/2025 04/20/2024, 03/27/2024 Diabetes Screening 06/18/2027 06/18/2024, 0 05/28/2024, 05/27/2024, Additional history exists Lipid Panel 03/27/2029 03/27/2024 Nephrology Referral Discontinued 04/06/2024 Influenza Vaccine (FLU shot) Completed 07/23/2024, 07/04/2013, 07/24/2012 Pneumococcal Vaccine: Pediatrics (0 to 5 Years) and At-Risk Patients (6 to 64 Years) Completed 07/23/2024 HPV (Gardasil) Vaccine Aged Out No lo nger eligible based on patient's age to complete this topic MENINGOCOCCAL (MENACTRA/MENVEO) Aged Out No longer eligible based on patient's age to complete this topic documented as of this encounter Medical Devices Implanted Type Area Slurry Tank Operator Device Identifier Shelf Expiration Date Model / Serial / Lot Coil Emboli Tornado 3x2 - [id number] Implanted:Qty: 1 on 05/22/2024 at [facility] [id number] 11/14/2028 [id number] / / [id number] Coil Fibered 2 10mm [id number] - [id number] Implanted:Qty: 1 on 05/22/2024 at [facility] [employer] : [employer]O IN[employer] [id number] 08/08/2026 [id number] / / [id number] Coil Emboli Tornado 3x2 - [id number] Implanted:Qty: 1 on 05/22/2024 at [facility] [id number] 09/08/2028 [id number] / / [id number] Coil Emboli Tornado 3x2 - [id number] Implanted:Qty: 1 on 05/22/2024 at [facility] [id number] 08/22/2028 [id number] / / [id number] Cath Diag Cobra 2 2kju29cf - [id number] Implanted:Qty: 1 on 05/22/2024 at [facility] [employer] [id number] 07/24/2026 H78 [id number] / / [id number] documented as of this encounter Visit Diagnoses Diagnosis Anemia due to stage 5 chronic kidney disease, not on chronic dialysis (HCC) Malaise and fatigue Other malaise and fatigue Numbness of fingers of both hands Disturbance of skin sensation Vitamin D deficiency Unspecified vitamin D deficiency documented in this encounter Advance Directives * [...] Advance Directives occurred with: Patient Care Teams Paper Sorter Relationship Specialty Start Date End Date Sonya Dacosta MD [address] [place] [address] PCP - General Family Medicine 04/27/24 documented as of this encounter
--- OUTSIDE RECORDS SUMMARY | 2024-08-20 06:32 | External Medical Summary | Summary of Care ---
Author Name Unknown Organization [facility] Address [address] [place] [address] Phone [phone] Care Team Providers Care Returned Telephone Equipment Appraiser Name Role Phone Sonya Dacosta MD Primary Care Provider [phone] Reason for Visit * Reason Onset Date Comments Films 07/12/2024 Encounter Details Date Type Department Care Team (Late st Contact Info) Description 07/12/2024 Telephone Family Practice [facility] [address] [place] [address] Sonya Dacosta MD [address] [place] [address] Films Allergies Active Allergy Reactions Criticality Noted Date [...] encounter Miscellaneous Notes * Telephone Encounter - Laurie Zendejas OSA - 07/12/2024 4:07 PM EDT Attempted to contact patient in regards to his active request for his chest XRAY. Could not leave amessage will send a my G. documented in this encounter Plan of Treatment Upcoming Encounters Date Type Department Care Team (Late st Contact Info) Description 07/23/2024 3:20 PM EST Office Visit Family Practice [facility] [address] [place] [address] [address] Sonya Dacosta MD 200 [facility] [place] [address] 07/25/2024 10:40 AM EST Office Visit Nephrology, [facility] [address] [place] [address] [address] Juliano Stephens MD [address] [place] [address] [address] 08/09/2024 10:30 AM EST Office Visit Cardiology, [facility] [address] [place] [address] Palak Meier CRNP [address] [place] [address] 08/31/2024 1:00 PM EST Imaging Cardiac Studies, [address] [place] [id number] Health Maintenance Due Date Last Done Comments [...] this encounter Medical Devices Implanted Type Area Scientific Aide Device Identifier Shelf Expiration Date Model / Serial / Lot Coil Emboli Tornado 3x2 - [id number] Implanted:Qty: 1 on 05/22/2024 at [facility] [employer] [id number] 11/14/2028 [id number] / / [id number] Coil Fibered 2 10mm 748225 - [id number] Implanted:Qty: 1 on 05/22/2024 at [facility] [employer] : [employer] [id number] 08/08/2026 [id number] / / [id number] Coil Emboli Tornado 3x2 - [id number] Implanted:Qty: 1 on 05/22/2024 at [facility] [employer] [id number] 09/08/2028 [id number] / / [id number] Coil Emboli Tornado 3x2 - [id number] Implanted:Qty: 1 on 05/22/2024 at [facility] [employer] [id number] 08/22/2028 [id number] / / [id number] Cath Diag Cobra 2 5jlh04ve - [id number] Implanted:Qty: 1 on 05/22/2024 at [facility] [employer] [id number] 07/24/2026 H78 [id number] / / [id number] documented as of this encounter Advance Directives [...] Advance Directives occurred with: Patient Care Teams Returned Telephone Equipment Appraiser Relationship Specialty Start Date End Date Sonya Dacosta MD [address] [place] [address] PCP - General Family Medicine 04/27/24 documented as of this encounter
--- OUTSIDE RECORDS SUMMARY | 2024-08-20 06:32 | External Medical Summary | Summary of Care ---
Author Name Unknown Organization [facility] Address [address] [place] [address] Phone [phone] Care Team Providers Care Cna Per Diem Name Role Phone Sonya Dacosta MD Primary Care Provider Reason for Visit * Reason Onset Date Comments Advice 08/07/2024 Encounter Details Date Type Department Care Team (Late st Contact Info) Description 08/07/2024 Telephone Nephrology, [facility] [address] [place], [place] [phone] Services, Scheduling [address] [place] [address] Advice Allergies Active Allergy Reactions Criticality Noted [...] encounter Miscellaneous Notes * Telephone Encounter - Madelyn Espinoza OSA - 08/07/2024 8:41 AM EST Pt called asking to speak to Dr. Stephens's nurse, Alaiyah, concerning is dialysis. Please call the ptback at [phone]. Pt needs to talk to someone today before his next dialysis appt which is 11.20.24 at 5 AM. He thinks something is wrong. Thank you [facility] documented in this encounter Plan of Treatment Upcoming Encounters Date Type Department Care Team (Late st Contact Info) Description 08/09/2024 10:30 AM EST Office Visit Cardiology, [facility] [address] [place] [address] Palak Meier CRNP [address] [place] [address] 08/31/2024 1:00 PM EST Imaging Cardiac Studies, [facility] [address] [place] [address] 10/23/2024 2:40 PM EST Office Visit Family Practice [facility] [address] [facility] [place] [address] Sonya Dacosta MD [address] [facility] [place] [address] Health Maintenance Due Date Last Done Comments Depression Screening 1982 DTap/Tdap Vaccines (1 - Tdap) 1989 Hepatitis B Vaccine (1 of 3 - 19+ 3-dose series) 1989 Cologuard 11/26/2015 Colonoscopy 11/26/2015 Colorectal Cancer Screening 11/26/2015 Fecal Occult Blood Test 11/26/2015 Sigmoidoscopy 11/26/2015 Zoster Vaccines (1 of 2) 2020 COVID-19 Vaccine ( - season) 2024 TSH 07/23/2025 07/23/2024, 08/0 10/2023, [...] this encounter Medical Devices Implanted Type Area Derrick Follower Device Identifier Shelf Expiration Date Model / Serial / Lot Coil Emboli Tornado 3x2 - [id number] Implanted:Qty: 1 on 05/22/2024 at [facility] [employer] [id number] 11/14/2028 [id number] / / [id number] Coil Fibered 2 10mm [id number] - [id number] Implanted:Qty: 1 on 05/22/2024 at [facility] [employer] [id number] 08/08/2026 [id number] / / [id number] Coil Emboli Tornado 3x2 - [id number] Implanted:Qty: 1 on 05/22/2024 at [facility] [employer] [id number] 09/08/2028 [id number] / / [id number] Coil Emboli Tornado 3x2 - [id number] Implanted:Qty: 1 on 05/22/2024 at [facility] [employer] [id number] 08/22/2028 [id number] / / [id number] Cath Diag Cobra 2 0wtw57ha - [id number] Implanted:Qty: 1 on 05/22/2024 at [facility] [employer] [id number] 07/24/2026 [id number] / / [id number] documented as of this encounter Advance Directives [...] Advance Directives occurred with: Patient Care Teams Cna Per Diem Relationship Specialty Start Date End Date Sonya Dacosta MD [address] [facility] [place] [address] PCP - General Family Medicine 04/27/24 documented as of this encounter
--- OUTSIDE RECORDS SUMMARY | 2024-08-20 06:32 | External Medical Summary | Summary of Care ---
Author Name Unknown Organization [facility] Address [address] [place] [address] Phone [phone] Care Team Providers Care Senior Materials Planner Name Role Phone Sonya Dacosta MD Primary Care Provider Reason for Visit * Reason Comments NEW PATIENT Encounter Details Date Type Department Care Team (Late st Contact Info) Description 08/14/2024 1:30 PM EST Office Visit General Surgery Davion Gurrola [address] [facility] [address] [address] Fly Rosado MD [address] [address] End stage renal disease (HCC)*; Non-recurrent bilateral inguinal hernia without obstruction or gangrene Allergies Active Allergy Reactions Criticality Noted Date Comments Amoxicillin Hives 02/07/2014 Nsaids Edema face/lips/tongue High 02/07/2014 Penicillins Hives 02/07/2014 documented as of this encounter (statuses as of 08/14/2024) Medications Vitamin D3 50 MCG (1999) Oral [...] as of this encounter (statuses as of 08/14/2024) Active Problems Problem Noted Date Diagnosed Date [...] as of this encounter (statuses as of 08/14/2024) Resolved Problems Problem Noted Date Diagnosed Date Resolved Date Abdominal pain 05/22/2024 05/27/2024 VENKAT (acute kidney injury) 05/22/2024 Stage 3 chronic kidney disease 05/22/2024 07/23/2024 Anemia due to stage 3 chronic kidney disease 07/23/2024 Acute blood loss anemia 05/22/202407/21 Rib pain on right side 03/27/202407/23 documented as of this encounter (statuses as of 08/14/2024) Immunizations Name Administration Dates Next Due Pneumococcal Conjugate Vaccine, 20-valent (Prevn ar20) 07/23/2024 Seasonal Influenza, Trivalent, (IIV3), PF, (Fluz one) 07/23/2024 documented as of this encounter Social History Tobacco Use Types Packs/Day Years Used Date Smoking Tobacco: Never Smokeless Tobacco: Never Tobacco Cessation:Counseling Given: Not Answered Alcohol Use Standard Drinks/Week Comments Not Currently [...] Sign Reading Time Taken Comments Blood Pressure 172/107 08/14/2024 1:39 PM EST Pulse 75 08/14/2024 1:39 PM EST Temperature 36.4 C (97.5 F) 08/14/2024 1:39 PM ES T Respiratory Rate - - Oxygen Saturation - - Inhaled Oxygen Concentration - - Weight 99.8 kg (220 lb) 08/14/2024 1:39 PM EST Height - - Body Mass Index 28.26 05/22/2024 5:00 AM EDT documented in this [...] Lillie Meade RN documented in this encounter Progress Notes * Fly Rosado MD - 08/14/2024 2:13 PM EST DOS: 08/14/2024 Ref: Patient is seen at the request of Juliano Stephens MD. CC: Peritoneal dialysis catheter insertion HPI: 53-year-old male presents for evaluation for peritoneal dialysis catheter insertion. He has a history of end-stage renal disease and is currently on hemodialysis. He has symptoms of dizziness, fatigue, and crampy abdominal pain with hemodialysis. He would like to discuss peritoneal dialysis catheter insertion. He has a history of umbilical hernia repair with mesh at [facility] approximately 10 years ago. He recently had a complication of a left subcapsular hematoma of the kidney following biopsyon 05/17/24. Subjective ROS: CONST: no weight loss, no fever, no fatigue EYES: no changes in vision ENT: no changes in hearing, no sinus problems, no sore throat, no hoarseness, no nodes RESP: no cough, no wheezing, no SOB, no change in breathing CV: no chest pain, no dyspnea, no palpitations, no edema GI: no melena, no hemetemesis, no vomiting, no diarrhea, no constipation : no dysuria, no hematuria, no frequency MSK: no change in joint pains, no new arthritis PSYCH: no anxiety, no depression HEME: no bleeding tendency, no clotting tendency NEURO: no significant headache, no seizures, no strokes SKIN: no new rashes, no itching Past Medical History: Diagnosis Date Depression Hypothyroidism Current Medications - Prior to This Encounter Medication Sig Last Dose Discont. Multivitamin Adult (Minerals) Oral Tablet 1 Tablet in the morning. 08/13/2024 Levothyroxine Sodium 200 MCG Oral Tablet (Levoxyl) Take 1 Tablet by mouth in the morning. Takes at bedtime. 08/13/2024 Carvedilol 25 MG Oral Tablet (Coreg) Take 1 Tablet by mouth 2 times a day with morning and evening meals. 08/13/2024 amLODIPine Besylate 10 MG Oral Tablet (Norvasc) Take 0.5 Tablets by mouth in the morning and 0.5 Tablets before bedtime. 08/13/2024 Sevelamer Carbonate 800 MG Oral Tablet (Renvela) Take 1 Tablet by mouth in the morning and 1 Tabletat noon and 1 Tablet in the evening. Take with meals. 08/13/2024 Ventolin HFA 108 (90 Base) MCG/ACT Inhalation Aerosol Solution Inhale 2 Puffs by mouth 4 times a day as needed for Wheezing. 08/13/2024 Vitamin D3 50 MCG (2000 UT) Oral Capsule Take 1 Capsule by mouth in the morning. 08/13/2024 Review of patient's allergies indicates: Allergen Reactions Nsaids Edema face/lips/tongue Amoxicillin Hives Penicillins Hives Past Surgical History: Procedure Laterality Date IR ARTERIAL EMBOLIZATION 05/22/2024 IR BIOPSY 05/17/2024 IR VENOUS ACCESS NON-MEDIPORT 05/17/2024 UMBIL HERNIA REPAIR (REDUCIBLE) AGE 5+YR No family history on file. Social History Tobacco Use Smoking status: Never Smokeless tobacco: Never Vaping Use Vaping status: Never Used Substance Use Topics Alcohol use: Not Currently Comment: 2 beers a month Drug use: No Objective EXAM: BP 172/107 | Pulse 75 | Temp 36.4 C (97.5 F) (Temporal Artery) | Wt 99.8 kg (220 lb) | BMI 28.26 kg/m | BSA 2.28 m GENERAL: alert, healthy, and no distress HEAD: Normocephalic, No masses, lesions, tenderness or abnormalities EYES: sclera clear EARS: External ears normal NOSE: no mucosal erythema MOUTH: mucous membranes are moist ABDOMEN: abdomen soft and non-tender : penis normal, testicles normal; bilateral inguinal hernias are present BACK: no tenderness to percussion or palpation, No CVA tenderness EXTREMITIES: no edema NEURO: alert & oriented x 3 with fluent speech, no focal motor/sensory deficits SKIN: skin color, texture, turgor are normal, no rashes or significant lesions IMAGING: CTA ABD/PELVIS on 05/25/2024 MUSCULOSKELETAL: Small fat containing inguinal hernias. Assessment & Plan ASSESSMENT: ICD-10-CM 1. End stage renal disease (HCC) N18.6 2. Non-recurrent bilateral inguinal hernia without obstruction or gangrene K40.20 Discussed with patient benefits of peritoneal dialysis and technique of placement. Discussed bilateral inguinal hernias and how these can contribute to difficulties with peritoneal dialysis. He will require concomitant repair. PLAN: Robotic BILATERAL inguinal hernia repair Laparoscopic peritoneal dialysis catheter insertion PAT ERAS Will need to adjust hemodialysis days so that he received hemodialysis the day prior to surgery. Will coordinate with patient's cash checker. Will need to defer use of peritoneal dialysis catheter for at least two weeks following placement to allow sufficient time for hernia repairs to heal before dialysate installation. I spent a total of 40-54 minutes (exact time 45 mins) on the date of service in preparation, delivery, and documentation of the care provided to Fly De Luna excluding any time spent in the performance of separately billed services or time spent by another provider/QHP. G Noble Rosado MD documented in this encounter Nursing Notes * Aaliyah Villarreal LPN - 08/14/2024 1:38 PM EST Chief Complaint Patient presents with NEW PATIENT Pt referred by cash checker, Dr. Stephens for PD catheter consult. Hx of umbilical hernia repair with mesh 13+years ago at [facility]. documented in this encounter Plan of Treatment Upcoming Encounters Date Type Department Care Team (Late st Contact Info) Description 08/31/2024 1:00 PM EST Imaging Cardiac Studies, [facility] [address] [facility] [place] [address] 10/23/2024 2:40 PM EST Office Visit [facility] [address] [facility] [place] [address] Sonya Dacosta MD [address] [place] [address] 05/07/2025 10:00 AM EDT Office Visit Cardiology, [facility] [place] [address] Palak Meier CRNP 132 [facility] [place] [address] Scheduled Procedures Name Priority Associated Diagnoses Date/Ti me ROBOTIC LAPAROSCOPIC REPAIR INGUINAL HERNIA INITIAL (BILATERAL) [...] this encounter Medical Devices Implanted Type Area White Spooler Device Identifier Shelf Expiration Date Model / Serial / Lot Coil Emboli Tornado 3x2 - [id number] Implanted:Qty: 1 on 05/22/2024 at [facility] [employer] [id number] 11/14/2028 [id number] / / [id number] Coil Fibered 2 10mm [id number] - [id number] Implanted:Qty: 1 on 05/22/2024 at [facility] [employer] : NEURO INTR [id number] 08/08/2026 [id number] / / [id number] Coil Emboli Tornado 3x2 - [id number] Implanted:Qty: 1 on 05/22/2024 at [facility] [employer] [id number] 09/08/2028 [id number] / / [id number] Coil Emboli Tornado 3x2 - [id number] Implanted:Qty: 1 on 05/22/2024 at [facility] [employer] [id number] 08/22/2028 [id number] / / [id number] Cath Diag Cobra 2 [id number] - [id number] Implanted:Qty: 1 on 05/22/2024 at [facility] [employer] [id number] 07/24/2026 [id number] / / [id number] documented as of this encounter Visit Diagnoses Diagnosis End stage renal disease (HCC)- Primary End stage renal disease Non-recurrent bilateral inguinal hernia without obstruction or gangrene documented in this encounter Advance Directives * [...] Directives occurred with: Patient Care Teams Senior Materials Planner Relationship Specialty Start Date End Date Sonya Dacosta MD [address] [place] [address] PCP - General Family Medicine 04/27/24 documented as of this encounter"
--- OUTSIDE RECORDS SUMMARY | 2024-08-20 06:32 | External Medical Summary | Summary of Care ---
Author Name Unknown Organization [facility] Address [address] [place] [address] Phone [phone] Care Team Providers Care Linotype Machinist Apprentice Name Role Phone Sonya Dacosta MD Primary Care Provider [phone] Reason for Visit * Reason Comments Chronic Kidney Disease (CKD) Encounter Details Date Type Department Care Team (Late st Contact Info) Description 07/25/2024 10:40 AM EST Office Visit Nephrology, [facility] [address] [place] [address] Juliano Stephens MD [address] [facility] [place] [address] End stage renal disease (HCC)* Allergies Active Allergy Reactions Criticality Noted Date [...] of this encounter (statuses as of 07/25/2024) Immunizations Name Administration Dates Next Due Pneumococcal [...] Sign Reading Time Taken Comments Blood Pressure 151/93 07/25/2024 10:35 AM EST Pulse 75 07/25/2024 10:35 AM EST Temperature 36.5 C (97.7 F) 07/25/2024 10:[address] Respiratory Rate 18 07/25/2024 10:35 AM EST Oxygen Saturation - - Inhaled Oxygen Concentration - - Weight 96.2 kg (212 lb) 07/25/2024 10:35 AM EST Height - - Body Mass Index 27.24 05/22/2024 5:00 AM EDT documented in this [...] No 05/22/2024 documented as of this encounter Progress Notes * Juliano Stephens MD - 07/25/2024 10:28 AM EST This appointment was made in error. Patient is a chronic hemodialysis patient whom I see at [facility] dialysis unit in [place]. By rule I can not see the patient in the clinic. Juliano Stephens MD documented in this encounter Nursing Notes * Aaliyah Palomares RN - 07/25/2024 10:41 AM EST Pt is currently receiving HD at [facility]. Pt does follow with Dr Stephens there. States he just completed dialysis and has several questions. with pt today. Dr Stephens seeing pt as requested. documented in this encounter Plan of Treatment Upcoming Encounters Date Type Department Care Team (Late st Contact Info) Description 08/09/2024 10:30 AM EST Office Visit Cardiology, [facility] [place] [address] Palak Meier CRNP [address] [place] [address] 08/31/2024 1:00 PM EST Imaging Cardiac Studies, [facility] [place] [address] 10/23/2024 2:40 PM EST Office Visit Family Practice [facility] [address] [facility] [place] [address] Sonya Dacosta MD [address] [facility] [place] [address] Health Maintenance Due Date Last Done Comments [...] this encounter Medical Devices Implanted Type Area Terrazzo Roller Device Identifier Shelf Expiration Date Model / Serial / Lot Coil Emboli Tornado 3x2 - [id number] Implanted:Qty: 1 on 05/22/2024 at [facility] [id number] 11/14/2028 [id number] / / [id number] Coil Fibered 2 10mm [id number] - [id number] Implanted:Qty: 1 on 05/22/2024 at [facility] [employer] : NEURO INTR [id number] 08/08/2026 [id number] / / [id number] Coil Emboli Tornado 3x2 - [id number] Implanted:Qty: 1 on 05/22/2024 at [facility] [id number] 09/08/2028 [id number] / / [id number] Coil Emboli Tornado 3x2 - [id number] Implanted:Qty: 1 on 05/22/2024 at [facility] [id number] 08/22/2028 [id number] / / [id number] Cath Diag Cobra 2 [id number] - [id number] Implanted:Qty: 1 on 05/22/2024 at [facility] [employer] [id number] 07/24/2026 H78 [id number] / / [id number] documented as of this encounter Visit Diagnoses Diagnosis End stage renal disease (HCC)- Primary End stage renal disease documented in this encounter Advance Directives * [...] Advance Directives occurred with: Patient Care Teams Linotype Machinist Apprentice Relationship Specialty Start Date End Date Sonya Dacosta MD [address] [place] [address] PCP - General Family Medicine 04/27/24 documented as of this encounter
--- OUTSIDE RECORDS SUMMARY | 2024-08-20 06:32 | External Medical Summary ---
Author Name Unknown Address Unknown Organization K01:[facility] - [address] [address] Laboratory Report Ordering Provider Test Date Status ANIBALMARTINO 07/23/2024 16:12:00 Final Observation Date Value Abnormality Reference (Units ) Status T4, Free 07/23/2024 16:12:00 1.5 0.9-1.7 (n g/dL) Final Performing Location [facility] [address] [place] [address]
--- OUTSIDE RECORDS SUMMARY | 2024-08-20 06:32 | External Medical Summary ---
Author Name Unknown Address Unknown Organization K01:[facility] - [address] [place] [address] Laboratory Report Ordering Provider Test Date Status SALENA BARNETT 07/23/2024 16:12:00 Final Observation Date Value Abnormality Reference (Units ) Status Ferritin 07/23/2024 16:12:00 716 Above high normal 30 -400 (ng/mL) Final Performing Location [facility] - [address] [place] [address]
--- OUTSIDE RECORDS SUMMARY | 2024-08-20 06:32 | External Medical Summary | Summary of Care ---
Author Name Unknown Organization [facility] Address [address] [place] [address] Phone [phone] Care Team Providers Care Research Project Coordinator Name Role Phone Sonya Dacosta MD Primary Care Provider [phone] Reason for Visit * Reason Onset Date Comments FYI 04/11/2024 Encounter Details Date Type Department Care Team (Late st Contact Info) Description 04/11/2024 Telephone Family Practice [facility] [address] [facility] [address] Sonya Dacosta MD 200 [facility] [place] [address] FYI Allergies Active Allergy Reactions Criticality Noted Date Comments Amoxicillin Hives 02/07/2014 Nsaids Edema face/lips/tongue High 02/07/2014 Penicillins Hives 02/07/2014 documented as of this encounter (statuses as of 07/11/2024) Medications Medication Sig Dispensed Refills Start Date End Date Status Multivitamin Adult (Minerals) Oral Tablet 1 Tablet in the morning. 03/29/2024 Active documented as of this encounter (statuses as of 07/11/2024) Active Problems Problem Noted Date Diagnosed Date [...] as of this encounter (statuses as of 07/11/2024) Resolved Problems Problem Noted Date Diagnosed Date Resolved Date Abdominal pain 05/22/2024 05/27/2024 documented as of this encounter (statuses as of 07/11/2024) Social History Tobacco Use Types Packs/Day Years [...] Encounter - Aaliyah Palomares RN - 04/11/2024 11:39 AM EDT Extensive TE with pt regarding blood pressure readings. Pt was hypotensive at recent clinic visit. At that time his hydralazine was stopped. Pt states that since that time, he is having high blood pressures of 150s-170s /100. He states he is having swelling in his ankles which seems related to the amlodipine.Pt did not take this medication this AM,only cardvidolol.He denies chest pain,shortness of breath. Does have a mild headache. He also mentions that his grandfather had hypertension. Additionally he states that they are having some family issues which is causing increased stress. Please review and address. * Telephone Encounter - Carol Ann Patel LPN - 04/11/2024 10:52 AM EDT Please advise regarding BP * Telephone Encounter - Carri Booker OSA - 04/11/2024 10:07 AM EDT Reason for patient's call: discuss blood pressure medication states his kidney doctor recently changed his blood pressure medication but he is still getting high readings. Unable to reach nurse in the allotted wait time. * Telephone Encounter - Sophie Mckeon OSA - 04/11/2024 9:49 AM EDT Patient calls clarified he wants to go to [facility] as as his primary because I noticed his PCP is in [facility] He also let me know he was in [facility] last week and was discharged on April 01 ( I didn't see any notes) He stated he wasn't feeling good. I found him a hospital discharge on Tuesday04/13/[address] Coyle. He then asked me to hold and after 8 min did not come back. I called him and left him a Needs HD appointment and establishment documented in this encounter Plan of Treatment Upcoming Encounters Date Type Department Care Team (Late st Contact Info) Description 07/23/2024 3:20 PM EST Office Visit Family Practice [facility] [address] [facility] [place] [address] Sonya Dacosta MD [address] [facility] [place] [address] 07/25/2024 10:40 AM EST Office Visit Nephrology, [facility] [address] [facility] [place] [address] Juliano Stephens MD [address] [facility] [place] [address] 08/09/2024 10:30 AM EST Office Visit Cardiology, [facility] [address] [facility] [place] [address] Palak Meier CRNP [address] [place] [address] 08/31/2024 1:00 PM EST Imaging Cardiac Studies, [facility] [address] [place] [address] Health Maintenance Due Date Last Done Comments [...] this encounter Medical Devices Implanted Type Area Cement Rubber Device Identifier Shelf Expiration Date Model / Serial / Lot Coil Emboli Tornado 3x2 - [id number] Implanted:Qty: 1 on 05/22/2024 at [facility] [employer] [id number] 11/14/2028 [id number] / / [id number] Coil Fibered 2 10mm [id number] - [id number] Implanted:Qty: 1 on 05/22/2024 at [facility] [employer] [id number] 08/08/2026 [id number] / / [id number] Coil Emboli Tornado 3x2 - [id number] Implanted:Qty: 1 on 05/22/2024 at [facility] [employer] [id number] 09/08/2028 [id number] / / [id number] Coil Emboli Tornado 3x2 - [id number] Implanted:Qty: 1 on 05/22/2024 at [facility] [employer] [id number] 08/22/2028 [id number] / / [id number] Cath Diag Cobra 2 [id number] - [id number] Implanted:Qty: 1 on 05/22/2024 at [facility] [employer] [id number] 07/24/2026 H78 [id number] / / [id number] documented as of this encounter Advance Directives [...] Advance Directives occurred with: Patient Care Teams Research Project Coordinator Relationship Specialty Start Date End Date Sonya Dacosta MD [address] [place] [address] PCP - General Family Medicine 04/27/24 documented as of this encounter
--- OUTSIDE RECORDS SUMMARY | 2024-08-20 06:33 | External Medical Summary | Summary of Care ---
Author Name Unknown Organization [facility] Address [address] [place] [address] Phone [phone] Care Team Providers Care Pricing Coordinator Name Role Phone Sonya Dacosta MD Primary Care Provider [phone] Reason for Visit * Reason Onset Date Comments FYI 06/11/2024 Encounter Details Date Type Department Care Team (Late st Contact Info) Description 06/11/2024 Telephone Family Practice [facility] [address] [facility] [place] [address] Sonya Dacosta MD 200 [place] [address] FY Allergies Active Allergy Reactions Criticality Noted Date [...] encounter Miscellaneous Notes * Telephone Encounter - Alexsandra Youngblood PHARM Tech - 06/11/2024 8:23 AM EDT Spouse called to request refill for Sevelamer Carbonate 800 MG Oral Tablet (Renvela). Prescribed last from the hospital. She wasn't sure if pcp or nephrology should prescribe, sent to specialty line to request refill. Thank you, Alexsandra Youngblood Slasher Tender Helper I [facility] 06/11/2024,8:25 AM documented in this encounter Plan of Treatment Upcoming Encounters Date Type Department Care Team (Late st Contact Info) Description 07/16/2024 9:00 AM EDT Office Visit Family Practice [facility] [place] [address] [place] [address] Sonya Dacosta MD [address] [place] [address] [address] 07/25/2024 10:40 AM EST Office Visit Nephrology, [facility] [address] [place] [address] [address] Juliano Stephens MD [address] [place] [address] [address] 08/09/2024 10:30 AM EST [facility] [address] [place] [address] Palak Meier CRNP [address] [place] [address] 08/31/2024 1:00 PM EST Imaging Cardiac Studies, [facility] [place] [address] [address] [place] [address] Health Maintenance Due Date Last Done Comments [...] this encounter Medical Devices Implanted Type Area Division Sales Manager Device Identifier Shelf Expiration Date Model / Serial / Lot Coil Emboli Jefe 3x2 - [id number] Implanted:Qty: 1 on 05/22/2024 at [facility] [id number] 11/14/2028 [id number] / / [id number] Coil Fibered 2 10mm 39[address] - [id number] Implanted:Qty: 1 on 05/22/2024 at [facility] [employer] [id number] 08/08/2026 [id number] / / [id number] Coil Emboli Tornado 3x2 - [id number] Implanted:Qty: 1 on 05/22/2024 at [facility] [id number] 09/08/2028 [id number] / / [id number] Coil Emboli Tornado 3x2 - [id number] Implanted:Qty: 1 on 05/22/2024 at [facility] [employer] [id number] 08/22/2028 [id number] / / [id number] Cath Diag Cobra 2 [id number] - [id number] Implanted:Qty: 1 on 05/22/2024 at [facility] [employer] [id number] 07/24/2026 H78 [id number] / / [id number] documented as of this encounter Advance Directives [...] Advance Directives occurred with: Patient Care Teams Pricing Coordinator Relationship Specialty Start Date End Date Sonya Dacosta MD [address] [place] [address] PCP - General Family Medicine 04/27/24 documented as of this encounter
--- OUTSIDE RECORDS SUMMARY | 2024-08-20 06:33 | External Medical Summary | Summary of Care ---
Author Name Unknown Organization [facility] Address [address] [place] [address] Phone [phone] Care Team Providers Care Tight Rope Walker Name Role Phone Sonya Dacosta MD Primary Care Provider [phone] Reason for Visit * Reason Onset Date Comments Precert Denied 06/21/2024 96232 EXERCISE S TRESS ON THE SCHEDULE FOR [employer] ON 06/28/2024 Encounter Details Date Type Department Care Team (Late st Contact Info) Description 06/21/2024 Telephone Family Medicine [address] [id number] Cinda Schneider MD [address] [place] [address] [place] [address] Precert Denied (96330 EXERCISE STRESS ON T... Allergies Active Allergy Reactions Criticality Noted Date Comments Amoxicillin Hives 02/07/2014 Nsaids Edema face/lips/tongue High 02/07/2014 Penicillins Hives 02/07/2014 documented as of this encounter (statuses as of 07/09/2024) Medications Medication Sig Dispensed Refills Start Date [...] Take with meals. 30 Tablet 05/28/2024 Active Levothyroxine Sodium 200 MCG Oral Tablet (Levoxyl) Take 1 Tablet by mouth in the morning. Takes at bedtime . 12/28/2023 07/04/2024 Discontinued (Refill) Carvedilol 25 MG Oral Tablet (Coreg) Take 1 Tablet by mouth 2 times a day with morning and evening meals. 60 Tablet 05/28/2024 06/25/2024 Discontinued (Refill) documented as of this encounter (statuses as of 07/09/2024) Active Problems Problem Noted Date Diagnosed Date [...] as of this encounter (statuses as of 07/09/2024) Resolved Problems Problem Noted Date Diagnosed Date Resolved Date Abdominal pain 05/22/2024 05/27/2024 documented as of this encounter (statuses as of 07/09/2024) Social History Tobacco Use Types Packs/Day Years [...] Telephone Encounter - Marlyn Hilliard OSA - 07/09/2024 10:45 AM EDT 08/31/24 1:00 pm treadmill at [facility]. I sent patient a [employer] message with date and timeand instructions. * Telephone Encounter - Marlyn Hilliard OSA - 06/29/2024 8:33 AM EDT Can you take a look at the test ordered and see if it can be done at [facility]. Exercise stress echo ordered first and then denied by insurance and order for treadmill placed. It will not give me an option to schedule it at [facility]. Thanks for your help. * Addendum [...] to Peer completed with Dr Davison [facility] Davison NPI #[id number] Stress echocardiogram denied. Dr Davison recommends treadmill stress test instead stating this is required as per his guidelines. Please inform patient and schedule treadmill stress test. * Telephone Encounter - Cinda Schneider MD - 06/21/2024 11:10 AM EDT Peer to Peer scheduled with Dr Lencho Davison today 330pm Insurance has denied recommended cardiac stress test as per Angeli Guevara [facility]. * Telephone Encounter - Gali Macedo OSA - 06/21/2024 9:05 AM EDT Good Morning, Following up on this case and per the [employer] medical collections representative Jordana Muhammad the case had DENIED for the [id number] Stress Echo on the schedule for 06/28/2024 ar Geovanni Correa. Per Laura this is the DENIAL RATIONAL: Your request [...] finding was based on review of [facility] - If you would like to completed a PEER TO PEER you can call to schedule at option 4 and provide the case# [id number] and Doctor's NPI# [id number]. Please advise me as well as the patient on how you wish to proceed. Thank you, Gali Barrett documented in this encounter Plan of Treatment Upcoming Encounters Date Type Department Care Team (Late st Contact Info) Description 07/25/2024 10:40 AM EST Office Visit Nephrology, [facility] [address] [facility] [place] [address] Juliano Stephens MD [address] [facility] [place] [address] 08/09/2024 10:30 AM EST [facility] [address] [place] [address] Palak Meier CRNP [address] [place] [address] 08/31/2024 1:00 PM EST [facility] [address] [place] [address] Scheduled Orders Name Type Priority Associated Diagnoses [...] this encounter Medical Devices Implanted Type Area Dress Fitter Device Identifier Shelf Expiration Date Model / Serial / Lot Coil Emboli Tornado 3x2 - [id number] Implanted:Qty: 1 on 05/22/2024 at [facility] [employer] [id number] 11/14/2028 [id number] / / [id number] Coil Fibered 2 10mm [id number] - [id number] Implanted:Qty: 1 on 05/22/2024 at [facility] [employer] [id number] 08/08/2026 [id number] / / [id number] Coil Emboli Tornado 3x2 - [id number] Implanted:Qty: 1 on 05/22/2024 at [facility] [employer] [id number] 09/08/2028 [id number] / / [id number] Coil Emboli Tornado 3x2 - [id number] Implanted:Qty: 1 on 05/22/2024 at [facility] [employer] [id number] 08/22/2028 [id number] / / [id number] Cath Diag Cobra 2 [id number] - [id number] Implanted:Qty: 1 on 05/22/2024 at [facility] [employer] [id number] 07/24/2026 [id number] / / [id number] documented as of this encounter Visit Diagnoses [...] Advance Directives occurred with: Patient Care Teams Tight Rope Walker Relationship Specialty Start Date End Date Sonya Dacosta MD [address] [place] [address] PCP - General Family Medicine 04/27/24 documented as of this encounter
--- NOTE | 2024-08-20 06:50 | Emergency Department Note ---
Impression & Plan Acute hypoxic respiratory failure, Hypertension, Hypervolemia associated with renal insufficiency, Hypertensive emergency ED Provider Note NAME: EMIGDIO WINSTON AGE: 53 SEX: M : 1970 ARRIVES VIA: Ambulance INFORMANT: Patient ED PROVIDER(S): Ector Martinez MD CHIEF COMPLAINT: shortness of breath. PLAN: Disposition: Admit MEDICAL DECISION MAKING: The patient is a pleasant 53-year-old gentleman with past medical history of hypothyroidism, hyperphosphatemia, hypertension, end-stage renal disease on hemodialysis Tuesday (since May 2024), history of left renal hematoma, anemia of chronic disease, depression who presents to the emergency department via EMS for acute onset shortness of breath that became severe this morning in the setting of having shortness of breath evolve yesterday afternoon and evening. He reports having cough and congestion with productive sputum but reports it is thin and clear. He denies any fevers. Denies any chest pain. He denies any GI or symptoms. He reports he does urinate daily still. He reports that he believes that at dialysis he is not getting enough fluid removed. He understands that prior to his last hospitalization that too much fluid was being removed and so this was adjusted but he feels it was too much. Reports retaining fluid and gaining water weight. He denies any increased salt intake over the . Per EMS the patient was in the mid 80s on room air with respiratory distress, pale and diaphoretic. Parents improved and O2 saturation improved to the mid 90s on BiPAP during transport. Patient denies missing any dialysis sessions and last received dialysis on Tuesday. He was due to go today but presents to emergency department due to severe shortness of breath. Per review of records the patient was admitted to this facility from 07/09-07/11 for acute on chronic respiratory failure with hypoxia related to volume overload as well as rhinovirus infection and pneumonia. He completed a course of Levaquin. On my evaluation the patient is in mild respiratory distress with increased work of breathing improving on BiPAP, afebrile with respiratory rate in the 40s, heart in 100s and blood pressure 180s-200s/100s-120s with O2 saturation in the low-mid 90s on BiPAP. Diminished breath sounds of bilateral lower lung caballero with underlying rhonchi and increased work of breathing. There is 1+ bilateral extremity edema. EKG is without overt acute ischemia. There are no hyperacute T waves or QRS prolongation. Chest x-ray demonstrates right mid airspace opacities and bilateral basilar airspace opacities which are suspicious for asymmetric pulmonary edema given the clinical context of increased fluid retention in the setting of end-stage renal disease on hemodialysis. Pneumonia is considered though procalcitonin is not elevated. WBC within normal limits with neutrophilia but no left shift/nonspecific. H/H 11/32.7 increased from prior. Platelets within normal limits. Chemistry without metabolic acidosis. Creatinine is 10 with BUN of 57 in setting of end- stage renal disease on hemodialysis due for dialysis today. AST is 89, proximate to recent value. Initial HS troponin 77 with delta two hour HS troponin 87 nonspecific in setting of the patient's acute respiratory failure with hypoxia in the setting of his end-stage renal disease on dialysis. Patient denies chest pain. TSH is elevated at 18 however free T4 within normal limits. Respiratory BioFire was negative. Patient was showing continued improvement on BiPAP. He was given nitroglycerin paste on his chest for afterload reduction given his elevated blood pressure though likely related to his hypervolemia and being due for dialysis. Case was discussed with Lori Devi PAC with Dr[facility], who will evaluate the patient for admission. Further management per admitting team. Triage Nursing notes reviewed and agree them. Prior/external medical records reviewed Vital Signs: reviewed Differential diagnosis: Reactive airway disease, pneumonia, pneumothorax, COPD, CHF, infections, cardiac ischemia, pulmonary embolism, musculoskeletal, gastrointestinal, as well as other pathologies. ER treatment provided: See below. Diagnostics interpreted by me: ECG: Normal sinus rhythm, 95 bpm, no ectopy, no hyperacute T-waves, no overt ST elevation or depression, QTc 427, QRS 82. Cardiac Monitoring: An order for continuous cardiac monitoring was placed and demonstrated Normal sinus rhythm, 95 bpm, no ectopy, Laboratory studies: See below Imaging studies: See below Consultation(s): Case was discussed with Lori Devi PAC with Dr. [facility], who will evaluate the patient for admission. HPI: The patient is a pleasant 53-year-old gentleman with past medical history of hypothyroidism, hyperphosphatemia, hypertension, end-stage renal disease on hemodialysis Tuesday (since May 2024), history of left renal hematoma, anemia of chronic disease, depression who presents to the emergency department via EMS for acute onset shortness of breath that became severe this morning in the setting of having shortness of breath evolve yesterday afternoon and evening. He reports having cough and congestion with productive sputum but reports it is thin and clear. He denies any fevers. Denies any chest pain. He denies any GI or symptoms. He reports he does urinate daily still. He reports that he believes that at dialysis he is not getting enough fluid removed. He understands that prior to his last hospitalization that too much fluid was being removed and so this was adjusted but he feels it was too much. Reports retaining fluid and gaining water weight. He denies any increased salt intake over the . Per EMS the patient was in the mid 80s on room air with respiratory distress, pale and diaphoretic. Parents improved and O2 saturation improved to the mid 90s on BiPAP during transport. Patient denies missing any dialysis sessions and last received dialysis on Tuesday. He was due to go today but presents to emergency department due to severe shortness of breath. Per review of records the patient was admitted to this facility from 07/09-07/11 for acute on chronic respiratory failure with hypoxia related to volume overload as well as rhinovirus infection and pneumonia. He completed a course of Levaquin. ROS: See above HPI for pertinent positives & negatives. A total of 10 systems reviewed and were otherwise negative. VITALS:See Below PHYSICAL EXAMINATION: GENERAL: Awake, alert, in mild respiratory distress HENT: Normocephalic, atraumatic. Oropharynx unremarkable. EYES: Normal conjunctiva. Sclera non-icteric. NECK: Supple. No nuchal rigidity. FROM. No JVD. RESPIRATORY: Diminished breath sounds of bilateral lower lung caballero with underlying rhonchi and clear apically. CARDIAC: Tachycardic rate, normal rhythm. Extremities warm and well perfused. Pulses equal. ABDOMEN: Soft, non-distended. No tenderness to palpation. No rebound or guarding. No masses. MUSCULOSKELETAL: Chest examination reveals no tenderness. The back is symmetrical on inspection without obvious abnormality. There is no CVA tenderness to palpation. No joint edema. LOWER EXTREMITIES: Calves are equal size bilaterally and non-tender. 1+ bilateral lower extremity edema. No discoloration. NEURO: Normal sensorium. No sensory or motor deficits noted. SKIN: No rash or jaundice noted. ED COURSE: Critical Care: I have personally spent greater than 35 minutes of critical care time in the direct management of this patient. This includes bedside care, interpretation of diagnostic studies, and testing, discussion with consultants, patient, and family members, and other required patient management activities. This 35 minutes is in excess of all separately billable procedures. Ector Martinez MD Past Med/Surg History Problem List (Updated 08/20/24 @ 14:39 by Ector Martinez MD) Hypertensive emergency (Acute) Hypervolemia associated with renal insufficiency (Acute) Hypertension (Acute) Acute hypoxic respiratory failure (Acute) Acute respiratory failure (Acute) Acute renal failure (Acute) Pulmonary edema (Acute) Multifocal pneumonia Hypertensive urgency CHF (congestive heart failure) (Acute) Elevated troponin (Acute) VENKAT (acute kidney injury) (Acute) Pneumonia (Acute) Chronic rhinitis Eustachian tube dysfunction BPPV (benign paroxysmal positional vertigo) Pressure sensation in both ears Sensorineural hearing loss (SNHL) of both ears asymmetric wrs Finger laceration (Acute) Lumbar herniated disc Medical History ESRD (end stage renal disease) on dialysis Hypothyroid Asthma Seasonal allergies H/O gastroesophageal reflux (GERD) Surgical History History of repair of hiatal hernia Family History Grandfather (Maternal) Hearing loss Father Hypertension Grandmother (Paternal) Cancer unknown type Family/Other Asthma patient not sure but thinks he has a family history of asthma Other No family history of adverse response to anesthesia No family history of bleeding disorder Social History Smoking Status: Never smoker Second Hand Exposure: No; Do You Dip or Chew Tobacco: No; Hx Alcohol Use: No Hx Substance Use: No Preferred Language: Egyptian Communication Ability: Effective Production Pattern Maker Required: No Beliefs That Will Affect Care: None marital status: Single Current Living Situation: Spouse Current Living Situation Comment: lives at home with current occupational status: employed 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 Feels Safe at Home: Yes Assistive Devices: None Allergies Allergies Allergy/AdvReac Type Severity Reaction Status Date / Time naproxen Allergy Intermediate SWELLING Verified 08/20/24 08:41 EYES AND LIPS Penicillins Allergy Intermediate HIVES, Verified 08/20/24 08:41 SWELLING amoxicillin Allergy Unknown Verified 08/20/24 08:41 Home Meds Home Medications Medication Instructions Recorded Confirmed levothyroxine 200 mcg tablet 200 mcg PO DAILY 02/10/21 08/20/24 guaifenesin 600 mg tablet, 600 mg PO Q12H PRN Congestion 03/29/24 08/20/24 extended release 12 hr (Mucinex) albuterol sulfate 90 mcg/actuation 2 puff inhalation DAILY PRN 07/09/24 08/20/24 aerosol inhaler Shortness Of Breath Or Wheezing amlodipine 10 mg tablet 10 mg PO QPM 07/09/24 08/20/24 carvedilol 25 mg tablet 25 mg PO BID 07/09/24 08/20/24 cholecalciferol (vitamin D3) 50 50 mcg PO DAILY 07/09/24 08/20/24 mcg (2,000 unit) tablet (Vitamin D3) sevelamer carbonate 800 mg tablet 800 mg PO TIDWMEAL 07/09/24 08/20/24 vitamin B complex-vitamin C-folic 1 tab PO DAILY 07/09/24 08/20/24 acid 0.8 mg tablet (Marylin-Yany) Previous Rx's Medication Instructions Recorded fluticasone propionate 50 2 spray intranasal DAILY #15.8 mL 08/27/21 mcg/actuation nasal spray,suspension Results & Data (ED) Vital Signs Vital Signs - 24 hr 08/20/24 06:27 08/20/24 06:36 08/20/24 06:36 Temperature 36.8 C Temperature Source Oral Pulse Rate 97 H 98 H Pulse Rate [Apical] Pulse Rhythm Regular Pulse Rhythm [Apical] Pulse Strength Normal Pulse Strength [Apical] Respiratory Rate 20 Respiratory Effort / Characteristics Spontaneous Labored Non-Labored Spontaneous Respiratory Depth Retractive Normal Respiratory Pattern Tachypnea Regular Blood Pressure - Lying Blood Pressure 185/127 H Blood Pressure [Right Arm] Blood Pressure Mean 146 Blood Pressure Mean [Right Arm] Blood Pressure Position Sitting Blood Pressure Position [Right Arm] Pulse Oximetry 95 Oxygen Delivery Method BiPAP BiPAP Fraction of Inspired Oxygen Sepsis Recent Fever Within 48 Hours No Sepsis New/Unexplained Change in Mental Status N/A Sepsis Action Taken by Nursing No Action Required 08/20/24 06:44 08/20/24 07:06 08/20/24 08:08 Temperature Temperature Source Pulse Rate 104 H Pulse Rate [Apical] 76 72 Pulse Rhythm Pulse Rhythm [Apical] Regular Regular Pulse Strength Pulse Strength [Apical] Normal Normal Respiratory Rate 40 H 18 16 Respiratory Effort / Characteristics Spontaneous Labored Non-Labored Non-Labored Respiratory Depth Normal Normal Normal Respiratory Pattern Regular Regular Regular Blood Pressure - Lying Blood Pressure Blood Pressure [Right Arm] 182/123 H 186/127 H Blood Pressure Mean Blood Pressure Mean [Right Arm] 142 146 Blood Pressure Position Blood Pressure Position [Right Arm] Sitting Sitting Pulse Oximetry 91 98 100 Oxygen Delivery Method BiPAP BiPAP Fraction of Inspired Oxygen 40 Sepsis Recent Fever Within 48 Hours Sepsis New/Unexplained Change in Mental Status Sepsis Action Taken by Nursing 08/20/24 08:30 08/20/24 09:05 08/20/24 09:34 Temperature 36.8 C Temperature Source Oral Pulse Rate Pulse Rate [Apical] 73 74 Pulse Rhythm Pulse Rhythm [Apical] Regular Pulse Strength Pulse Strength [Apical] Normal Respiratory Rate 22 16 Respiratory Effort / Characteristics Non-Labored Respiratory Depth Normal Respiratory Pattern Regular Blood Pressure - Lying 187/129 H Blood Pressure Blood Pressure [Right Arm] 179/125 H 176/121 H Blood Pressure Mean Blood Pressure Mean [Right Arm] 143 139 Blood Pressure Position Blood Pressure Position [Right Arm] Sitting Pulse Oximetry 100 100 Oxygen Delivery Method BiPAP BiPAP Fraction of Inspired Oxygen Sepsis Recent Fever Within 48 Hours Sepsis New/Unexplained Change in Mental Status Sepsis Action Taken by Nursing Laboratory Data Attestation: I reviewed the patient's lab results. 08/20/24 06:30 08/20/24 06:30 Lab Results 08/20/24 08/20/24 08/20/24 Range/Units 06:30 07:03 08:27 WBC 10.39 (4.8-10.8) K/ul RBC 3.52 L (4.70-6.10) M/uL Hgb 11.0 L (14.0-18.0) g/dl POC Hgb (14.0-18.0) g/dl Hct 33.7 L (42.0-52.0) % POC Hct (42-52) % MCV 95.7 (80.0-100.0) fL MCH 31.3 (25.0-34.0) pg MCHC 32.6 (32.0-36.0) g/dL RDW Std Deviation 55.5 H (36.4-46.3) fL RDW Coeff of Meena 15.8 H (11.5-14.5) % Plt Count 145 (130-400) K/uL MPV 9.1 L (9.4-12.4) fL Immature Gran % (Auto) 0.7 % Neut % (Auto) 87.3 % Lymph % (Auto) 3.8 % Bath % (Auto) 5.9 % Eos % (Auto) 1.8 % Baso % (Auto) 0.5 % Neut # (Auto) 9.08 H (1.40-6.50) K/uL Lymph # (Auto) 0.39 L (1.20-3.40) K/uL Bath # (Auto) 0.61 H (0.11-0.59) K/uL Eos # (Auto) 0.19 (0.00-0.50) K/uL Baso # (Auto) 0.05 (0.00-0.20) K/uL Immature Gran # (Auto) 0.07 (0.01-0.20) K/uL PT 12.1 H (9.0-12.0) Seconds INR 1.1 (0.9-1.1) Specimen Type POC pH (7.35-7.45) POC pCO2 (35-46) mmHg POC pO2 (80-95) mmHg POC HCO3 (19-24) kelly/L POC Total CO2 (24-31) mmol/L POC Base Excess (-9-1.8) kelly/L POC ABG O2 Sat (90-95) % POC Sodium (135-144) mmol/L Sodium 137 (136-145) mmol/L POC Potassium (3.3-5.0) mmol/L Potassium 5.1 (3.5-5.1) mmol/L Chloride 97 L (98-107) mmol/L Carbon Dioxide 28 (21-32) mmol/L Anion Gap 12 H (3-11) BUN 57 H (6-23) mg/dl Creatinine 10.38 H* (0.6-1.4) mg/dl Est Cr Clr Drug Dosing 10.5 ml/min eGFR 5.43 BUN/Creatinine Ratio 5.5 L (10-20) Glucose 122 H (70-99(Fasting)) mg/dl Calcium 9.5 (8.6-10.3) mg/dl Phosphorus 5.6 H (2.5-4.9) mg/dl Magnesium 2.5 H (1.7-2.4) mg/dl Total Bilirubin 1.5 H (0.2-1.0) mg/dl AST 89 H (13-39) U/L ALT 43 (7-52) U/L Alkaline Phosphatase 48 (34-104) U/L Troponin I High Sens 77.8 H* 87.1 H* (0-20) pg/ml Total Protein 7.4 (6.0-8.3) gm/dl Albumin 4.3 (3.4-5.0) gm/dl Globulin 3.1 (2.5-4.0) gm/dl Albumin/Globulin Ratio 1.4 (0.9-2) Lipase 35 (11-82) U/L Procalcitonin 0.32 (0-0.5) ng/ml TSH 18.238 H (0.300-4.500) uIu/ml Free T4 1.09 (0.61-1.60) ng/dl Adenovirus (PCR) Not Detected (NotDetected) B. pertussis DNA (PCR) Not Detected (NotDetected) B.parapertussis DNA PCR Not Detected (NotDetected) C. pneumoniae DNA (PCR) Not Detected (NotDetected) Coronavirus OC43 (PCR) Not Detected (NotDetected) Coronavirus HKU1 (PCR) Not Detected (NotDetected) Coronavirus 229E (PCR) Not Detected (NotDetected) SARS-CoV-2 (PCR) Not Detected (NotDetected) Coronavirus NL63 (PCR) Not Detected (NotDetected) Human Metapneumovir PCR Not Detected (NotDetected) Influenza Type A (PCR) Not Detected (NotDetected) Influenza Type B (PCR) Not Detected (NotDetected) M. pneumoniae (PCR) Not Detected (NotDetected) Parainfluenza 1 (PCR) Not Detected (NotDetected) Parainfluenza 2 (PCR) Not Detected (NotDetected) Parainfluenza 3 (PCR) Not Detected (NotDetected) Parainfluenza 4 (PCR) Not Detected (NotDetected) RSV (PCR) Not Detected (NotDetected) Entero/Rhino (PCR) Not Detected (NotDetected) 08/20/24 Range/Units 09:21 WBC (4.8-10.8) K/ul RBC (4.70-6.10) M/uL Hgb (14.0-18.0) g/dl POC Hgb 10.2 L (14.0-18.0) g/dl Hct (42.0-52.0) % POC Hct 30 L (42-52) % MCV (80.0-100.0) fL MCH (25.0-34.0) pg MCHC (32.0-36.0) g/dL RDW Std Deviation (36.4-46.3) fL RDW Coeff of Meena (11.5-14.5) % Plt Count (130-400) K/uL MPV (9.4-12.4) fL Immature Gran % (Auto) % Neut % (Auto) % Lymph % (Auto) % Bath % (Auto) % Eos % (Auto) % Baso % (Auto) % Neut # (Auto) (1.40-6.50) K/uL Lymph # (Auto) (1.20-3.40) K/uL Bath # (Auto) (0.11-0.59) K/uL Eos # (Auto) (0.00-0.50) K/uL Baso # (Auto) (0.00-0.20) K/uL Immature Gran # (Auto) (0.01-0.20) K/uL PT (9.0-12.0) Seconds INR (0.9-1.1) Specimen Type Arterial POC pH 7.42 (7.35-7.45) POC pCO2 42 (35-46) mmHg POC pO2 100 H (80-95) mmHg POC HCO3 27 H (19-24) kelly/L POC Total CO2 28 (24-31) mmol/L POC Base Excess 2.0 H (-9-1.8) kelly/L POC ABG O2 Sat 98.0 H (90-95) % POC Sodium 133 L (135-144) mmol/L Sodium (136-145) mmol/L POC Potassium 5.6 H (3.3-5.0) mmol/L Potassium (3.5-5.1) mmol/L Chloride (98-107) mmol/L Carbon Dioxide (21-32) mmol/L Anion Gap (3-11) BUN (6-23) mg/dl Creatinine (0.6-1.4) mg/dl Est Cr Clr Drug Dosing ml/min eGFR BUN/Creatinine Ratio (10-20) Glucose (70-99(Fasting)) mg/dl Calcium (8.6-10.3) mg/dl Phosphorus (2.5-4.9) mg/dl Magnesium (1.7-2.4) mg/dl Total Bilirubin (0.2-1.0) mg/dl AST (13-39) U/L ALT (7-52) U/L Alkaline Phosphatase (34-104) U/L Troponin I High Sens (0-20) pg/ml Total Protein (6.0-8.3) gm/dl Albumin (3.4-5.0) gm/dl Globulin (2.5-4.0) gm/dl Albumin/Globulin Ratio (0.9-2) Lipase (11-82) U/L Procalcitonin (0-0.5) ng/ml TSH (0.300-4.500) uIu/ml Free T4 (0.61-1.60) ng/dl Adenovirus (PCR) (NotDetected) B. pertussis DNA (PCR) (NotDetected) B.parapertussis DNA PCR (NotDetected) C. pneumoniae DNA (PCR) (NotDetected) Coronavirus OC43 (PCR) (NotDetected) Coronavirus HKU1 (PCR) (NotDetected) Coronavirus 229E (PCR) (NotDetected) SARS-CoV-2 (PCR) (NotDetected) Coronavirus NL63 (PCR) (NotDetected) Human Metapneumovir PCR (NotDetected) Influenza Type A (PCR) (NotDetected) Influenza Type B (PCR) (NotDetected) M. pneumoniae (PCR) (NotDetected) Parainfluenza 1 (PCR) (NotDetected) Parainfluenza 2 (PCR) (NotDetected) Parainfluenza 3 (PCR) (NotDetected) Parainfluenza 4 (PCR) (NotDetected) RSV (PCR) (NotDetected) Entero/Rhino (PCR) (NotDetected) Administered Medications Discontinued Medications Carvedilol (Carvedilol 25 Mg Tab) 25 mg PO NOW ONE Stop: 08/20/24 09:14 Last Admin: 08/20/24 09:17 Dose: Not Given Documented By: BMW Carvedilol (Carvedilol 12.5 Mg Tab) Confirm Administered Dose 25 mg .ROUTE .STK- MED ONE Stop: 08/20/24 09:16 Last Admin: 08/20/24 09:16 Dose: 25 mg Documented By: ACEW Nitroglycerin (Nitroglycerin 2% Ointment 30gm Tube) 1 inch EXT NOW ONE Stop: 08/20/24 07:18 Last Admin: 08/20/24 07:23 Dose: 1 inch Documented By: ACEW Imaging Data Radiologist's Impression: Chest X-Ray 08/20/24 06:41 EXAM: XR chest 1V portable CLINICAL HISTORY: SOB ADS/KAA TECHNIQUE: An X-ray image of the chest is obtained in AP projection. COMPARISON: 07/10/2024. FINDINGS: Pulmonary Parenchyma: Redemonstration of patchy airspace shadowing in right mid and both lower zones showing interval worsening. Central venous line appears in situ. No evidence of pleural effusion or pleural thickening. Heart and Mediastinum: Cardiac size appears to be the maximum upper normal limit in size. No mediastinal widening or masses. No hilar or mediastinal lymphadenopathy. Bony Thorax: Bony thorax appears intact without fractures or deformities. Soft Tissues: Soft tissues overlying the chest wall are unremarkable. IMPRESSION: Interval worsening of patchy airspace shadowing in right mid and both lower zones, would recommend clinical and lab correlation and follow-up chest x-ray. Electronically signed by Ismael Delgado 08-20-2024 08:33 AM Discharge Plan Visit Data Chief Complaint: Respiratory Distress Stated Complaint: Respiratory Distress ED Provider: Ector Martinez Discharge Problem: Acute hypoxic respiratory failure, Hypertension, Hypervolemia associated with renal insufficiency, Hypertensive emergency Patient Disposition: Admitted As Inpatient Discharge Instructions Interventions: ED Discharge Assessment Last Done: 08/20/24 12:52 Discharge Problem: Hypertension Qualifiers: Hypertension type: unspecified Qualified Code(s): I10 - Essential (primary) hypertension
[2024-08-20 07:04] LABS: Basophils # (auto) 0.05 K/uL (0.00-0.20); Basophils % (auto) 0.5 %; Eosinophils # (auto) 0.19 K/uL (0.00-0.50); Eosinophils % (auto) 1.8 %; Hematocrit (blood only) 33.7 % (42.0-52.0); Immature Granulocytes # (auto) 0.07 K/uL (0.01-0.20); Immature Granulocytes % (auto) 0.7 %; Lymphocytes # (auto) 0.39 K/uL (1.20-3.40); Lymphocytes % (auto) 3.8 %; Mean Corpuscular Hemoglobin 31.3 pg (25.0-34.0); Mean Corpuscular Hgb Conc 32.6 g/dL (32.0-36.0); Mean Corpuscular Volume 95.7 fL (80.0-100.0); Mean Platelet Volume 9.1 fL (9.4-12.4); Monocytes # (auto) 0.61 K/uL (0.11-0.59); Monocytes % (auto) 5.9 %; Neutrophils # (auto) 9.08 K/uL (1.40-6.50); Neutrophils % (auto) 87.3 %; Platelet Count 145 K/uL (130-400); RDW Coefficient of Variation 15.8 % (11.5-14.5); RDW Standard Deviation 55.5 fL (36.4-46.3); Red Blood Count 3.52 M/uL (4.70-6.10); White Blood Count 10.39 K/ul (4.8-10.8)
[2024-08-20 07:22] LABS: Albumin Globulin Ratio 1.4 (0.9-2); Albumin Level 4.3 gm/dl (3.4-5.0); BUN Creatinine Ratio 5.5 (10-20); Bilirubin,Total 1.5 mg/dl (0.2-1.0); Calcium 9.5 mg/dl (8.6-10.3); Creatinine Clr Calc Pharmacy 10.5 ml/min; Globulin 3.1 gm/dl (2.5-4.0); Magnesium 2.5 mg/dl (1.7-2.4); Phosphorus 5.6 mg/dl (2.5-4.9); Potassium 5.1 mmol/L (3.5-5.1); Total Protein 7.4 gm/dl (6.0-8.3)
[2024-08-20] MEDS: NITROGLYCERIN 2% OINTMENT 30GM TUBE EXT ONE (07:23)
[2024-08-20 07:30] LABS: INR 1.1 (0.9-1.1); Prothrombin Time 12.1 Seconds (9.0-12.0)
[2024-08-20 07:35] LABS: Thyroid Stimulating Hormone 18.238 uIu/ml (0.300-4.500); Troponin I High Sensitivity 77.8 pg/ml (0-20)
[2024-08-20 08:11] LABS: Adenovirus PCR Not Detected (NotDetected); Bordetella parapertussis PCR Not Detected (NotDetected); Bordetella pertussis PCR Not Detected (NotDetected); Chlamydia pneumoniae PCR Not Detected (NotDetected); Coronavirus 229E PCR Not Detected (NotDetected); Coronavirus CoV-2 (COVID19)PCR Not Detected (NotDetected); Coronavirus HKU1 PCR Not Detected (NotDetected); Coronavirus NL63 PCR Not Detected (NotDetected); Coronavirus OC43PCR Not Detected (NotDetected); Human Metapneumovirus PCR Not Detected (NotDetected); Influenza A PCR Not Detected (NotDetected); Influenza B PCR Not Detected (NotDetected); Mycoplasma pneumoniae PCR Not Detected (NotDetected); Parainfluenza Virus 1 PCR Not Detected (NotDetected); Parainfluenza Virus 2 PCR Not Detected (NotDetected); Parainfluenza Virus 3 PCR Not Detected (NotDetected); Parainfluenza Virus 4 PCR Not Detected (NotDetected); Respiratory Syncytial VirusPCR Not Detected (NotDetected); Rhinovirus/Enterovirus PCR Not Detected (NotDetected)
[2024-08-20 08:11] LABS: T4 Free Thyroxine 1.09 ng/dl (0.61-1.60)
--- NOTE | 2024-08-20 08:34 | XRay Report ---
EXAM: XR chest 1V portable CLINICAL HISTORY: SOB ADS/KAA TECHNIQUE: An X-ray image of the chest is obtained in AP projection. COMPARISON: 07/10/2024. FINDINGS: Pulmonary Parenchyma: Redemonstration of patchy airspace shadowing in right mid and both lower zones showing interval worsening. Central venous line appears in situ. No evidence of pleural effusion or pleural thickening. Heart and Mediastinum: Cardiac size appears to be the maximum upper normal limit in size. No mediastinal widening or masses. No hilar or mediastinal lymphadenopathy. Bony Thorax: Bony thorax appears intact without fractures or deformities. Soft Tissues: Soft tissues overlying the chest wall are unremarkable. IMPRESSION: Interval worsening of patchy airspace shadowing in right mid and both lower zones, would recommend clinical and lab correlation and follow-up chest x-ray. Electronically signed by Ismael Delgado 08-20-2024 08:33 AM
--- NOTE | 2024-08-20 08:46 | History & Physical Report ---
Date of Service August 20, 2024 Assessment & Plan (1) Acute hypoxic respiratory failure: (2) Hypervolemia associated with renal insufficiency: (3) Hypertensive emergency: (4) ESRD (end stage renal disease) on dialysis: Plan This is a 53-year-old male who has a significant past medical history of End- stage renal disease on HD MWF since 05/2024, HTN, page kidney, hypothyroidism, hyperphosphatemia, anemia of renal disease who presents to ED secondary to shortness of breath and hypoxia for a few days. Acute hypoxic respiratory failure Hypervolemia/Pulmonary edema Hypertensive emergency admit to PCU discussed with supervisor slate splitting - pt to undergo emergent HD will obtain CT Chest post HD to observe for possible PNA, no leukocytosis, procal normal tx with empiric aztreonam probiotic consider pulm consult based on CT results ESRD on HD continue tx per nephro Hypertensive emergency HTN at baseline continue amlodipine and coreg family reports increased BP at home, may need adjustment to his medications? Elevated troponin: suspect demand ischemia, no ecg changes, cycle trop Chronic Anemia in setting of renal disease: hgb stable Hypothyroidism: TSH elevated at 18 but T4 normal - recommend repeat TSH in 2 weeks as OP DVT ppx: SQ Heparin FULL CODE PCP: Praneeth Dispo: admit to PCU post HD Pt was seen and examined in collaboration with Dr. Simpson, please see addendum I spent a total of 76 minutes reviewing notes, outpatient records, labs, medication, coordinating, documenting and providing care for this patient excluding time spent in the performance of separately billed services. History of Present Illness Chief Complaint: Hypoxia/SOB. Primary Care Provider: Sonya Dacosta MD This is a 53-year-old male who has a significant past medical history of End- stage renal disease on HD MWF since 05/2024, HTN, page kidney, hypothyroidism, hyperphosphatemia, anemia of renal disease who presents to ED secondary to s hortness of breath and hypoxia for a few days. His is at bedside who also helps elicit history. He reports he went to dialysis this morning where he became very sweaty, "soaking his shirt," hypertensive and he was noted to be hypoxic. He was referred over to ED for further evaluation. He typically completes dialysis Tuesday. His last HD was on 08/17/2024. notes after HD Tuesday evening he was very lethargic, tired and had, "no get up and go." Through the weekend he had intermittent shortness of breath and productive cough of frothy sputum. He complains of orthopnea and PND. He was unable to lay flat last night as this resulted in significant shortness of breath and coughing. He also notes intermittent chills and sweats but denies any documented fever. He has no known sick contacts. He denies lightheadedness, dizziness, chest pain, hemoptysis, nausea, vomiting, abdominal pain or diarrhea. He does still produce urine and feels he is producing more than usual and complains of dysuria after urination. He has been taking his medications as prescribed. His primary supervisor slate splitting is Dr. Stephens. reports over the last 2 weeks he has been having less removed from 4.5 L down to 2 L. Prior to this he was having intermittent episodes of presyncope while at dialysis and that is why they reduced his volume. Since then he has noted increasing swelling in his extremities as well as weight gain. Per patient and supervisor slate splitting was not concerned regarding weight gain as he did not want him passing out during dialysis. They also note intermittent fluctuations in his blood pressure, mostly high. Last evening it was systolically 170s over 110. Patient denies any headache, vision change or chest pain with this. He did not receive any dialysis treatment today. In ED patient was hypoxic and eventually required BiPAP. Initial chest x-ray concerning for interval worsening of patchy airspace shadowing in the right mid both lower zones. He did have an elevated troponin at 87.1 as well as he had hypermagnesemia and hyperphosphatemia. His procalcitonin was normal. His respiratory bio fire was negative. Of significance patient was hospitalized on 07/09 to 07/11 with a similar presentation although at this time he did test positive for rhinovirus. Upon admission he was requiring BiPAP therapy and required emergent hemodialysis. He required multiple sessions of hemodialysis to remove appropriate fluid. Repeat chest x-ray showed improvement in pulmonary infiltrates. There was also question regarding possible pneumonia and he was treated with a course of Levaquin throughout his hospital stay. Allergies Allergy/AdvReac Type Severity Reaction Status Date / Time naproxen Allergy Intermediate SWELLING Verified 08/20/24 08:41 EYES AND LIPS Penicillins Allergy Intermediate HIVES, Verified 08/20/24 08:41 SWELLING amoxicillin Allergy Unknown Verified 08/20/24 08:41 Home Medications Medication Instructions Recorded Confirmed Type levothyroxine 200 mcg tablet 200 mcg PO DAILY 02/10/21 08/20/24 History fluticasone propionate 50 2 spray intranasal DAILY #15.8 mL 08/27/21 08/20/24 Rx mcg/actuation nasal spray,suspension guaifenesin 600 mg tablet, 600 mg PO Q12H PRN Congestion 03/29/24 08/20/24 History extended release 12 hr (Mucinex) albuterol sulfate 90 mcg/actuation 2 puff inhalation DAILY PRN 07/09/24 08/20/24 History aerosol inhaler Shortness Of Breath Or Wheezing amlodipine 10 mg tablet 10 mg PO QPM 07/09/24 08/20/24 History carvedilol 25 mg tablet 25 mg PO BID 07/09/24 08/20/24 History cholecalciferol (vitamin D3) 50 50 mcg PO DAILY 07/09/24 08/20/24 History mcg (2,000 unit) tablet (Vitamin D3) sevelamer carbonate 800 mg tablet 800 mg PO TIDWMEAL 07/09/24 08/20/24 History vitamin B complex-vitamin C-folic 1 tab PO DAILY 07/09/24 08/20/24 History acid 0.8 mg tablet (Marylin-Yany) Past Med/Surg History Problem List (Updated 08/20/24 @ 14:39 by Ector Martinez MD) Hypertensive emergency (Acute) Hypervolemia associated with renal insufficiency (Acute) Hypertension (Acute) Acute hypoxic respiratory failure (Acute) Acute respiratory failure (Acute) Acute renal failure (Acute) Pulmonary edema (Acute) Multifocal pneumonia Hypertensive urgency CHF (congestive heart failure) (Acute) Elevated troponin (Acute) VENKAT (acute kidney injury) (Acute) Pneumonia (Acute) Chronic rhinitis Eustachian tube dysfunction BPPV (benign paroxysmal positional vertigo) Pressure sensation in both ears Sensorineural hearing loss (SNHL) of both ears asymmetric wrs Finger laceration (Acute) Lumbar herniated disc Medical History ESRD (end stage renal disease) on dialysis Hypothyroid Asthma Seasonal allergies H/O gastroesophageal reflux (GERD) Surgical History History of repair of hiatal hernia Family History Grandfather (Maternal) Hearing loss Father Hypertension Grandmother (Paternal) Cancer unknown type Family/Other Asthma patient not sure but thinks he has a family history of asthma Other No family history of adverse response to anesthesia No family history of bleeding disorder Social History Smoking Status: Never smoker Second Hand Exposure: No; Do You Dip or Chew Tobacco: No; Hx Alcohol Use: No Hx Substance Use: No Preferred Language: Yoruba Communication Ability: Effective Overnight Babysitter Required: No Beliefs That Will Affect Care: None marital status: Single Current Living Situation: Spouse Current Living Situation Comment: at home with current occupational status: employed 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 Feels Safe at Home: Yes Safety Concerns: Feels Safe At This Time Assistive Devices: None Review of Systems Review of Systems: All systems reviewed & are unremarkable except as noted in HPI & below Physical Exam Physical Exam: Constitutional: WD/WN, vitals as above, NAD, appears comfortable, sitting up in bed, pleasant, conversing easily Head: Normocephalic, Atraumatic Eyes: PERRL, conjunctivae normal, anicteric sclerae ENMT: external ear and nose normal, oropharynx normal +bipap in place Neck: trachea midline, no thyromegaly normal visual inspection Respiratory: normal respiratory effort,no audible w/r/r, +bipap. Normal insp/exp effort, no accessory muscle use Cardiovascular: RRR, trace ankle, pretibial edema Vessels: no JVD or carotid bruit Chest: +permcath in place no surrounding erythema Abdomen: normal bowel sounds, soft, nontender, no hepatosplenomegaly Musculoskeletal: no cyanosis or clubbing, AROM x 4 Skin: no rashes, warm and dry normal turgor Neurologic: PERRL, EOMI, accommodation nl, no face palsy, no dysarthria CN's II-XI intact bilaterally and moves all extremities Psychiatric: A+Ox3, euthymic affect Results & Data Results & Data Vital Signs (Past 12 Hours) Vital Signs Temp Pulse Pulse Resp BP BP Pulse Ox 08/20/24 08:30 73 22 179/125 H 100 08/20/24 08:08 72 16 186/127 H 100 08/20/24 07:06 76 18 182/123 H 98 08/20/24 06:44 104 H 40 H 91 08/20/24 06:36 36.8 C 98 H 20 185/127 H 95 08/20/24 06:36 08/20/24 06:27 97 H O2 Del Method FiO2 08/20/24 08:30 BiPAP 08/20/24 08:08 BiPAP 08/20/24 07:06 BiPAP 08/20/24 06:44 40 08/20/24 06:36 BiPAP 08/20/24 06:36 BiPAP 08/20/24 06:27 Laboratory Results I have independently reviewed and interpreted patient's admitting labs including CBC, CMP, trop, tsh, procal, lipase Diagnostic Findings Chest X-Ray 08/20/24 06:41 EXAM: XR chest 1V portable CLINICAL HISTORY: SOB ADS/KAA TECHNIQUE: An X-ray image of the chest is obtained in AP projection. COMPARISON: 07/10/2024. FINDINGS: Pulmonary Parenchyma: Redemonstration of patchy airspace shadowing in right mid and both lower zones showing interval worsening. Central venous line appears in situ. No evidence of pleural effusion or pleural thickening. Heart and Mediastinum: Cardiac size appears to be the maximum upper normal limit in size. No mediastinal widening or masses. No hilar or mediastinal lymphadenopathy. Bony Thorax: Bony thorax appears intact without fractures or deformities. Soft Tissues: Soft tissues overlying the chest wall are unremarkable. IMPRESSION: Interval worsening of patchy airspace shadowing in right mid and both lower zones, would recommend clinical and lab correlation and follow-up chest x-ray. Electronically signed by Ismael Delgado 08-20-2024 08:33 AM Medications Administered Medication List Discontinued Medications Carvedilol (Carvedilol 25 Mg Tab) 25 mg PO NOW ONE Stop: 08/20/24 09:14 Last Admin: 08/20/24 09:17 Dose: Not Given Documented By: MARTA Carvedilol (Carvedilol 12.5 Mg Tab) Confirm Administered Dose 25 mg .ROUTE .STK- MED ONE Stop: 08/20/24 09:16 Last Admin: 08/20/24 09:16 Dose: 25 mg Documented By: BMW Nitroglycerin (Nitroglycerin 2% Ointment 30gm Tube) 1 inch EXT NOW ONE Stop: 08/20/24 07:18 Last Admin: 08/20/24 07:23 Dose: 1 inch Documented By: BMW ECG Additional Comments: I have independently reviewed and interpreted patient's admitting EKG which revealed: NSR 95, qtc [address] or t wave change COVID-19 Results Results COVID-19 Adm Lab Results: RBC 3.52 M/uL (4.70-6.10) L 08/20/24 WBC 10.39 K/ul (4.8-10.8) 08/20/24 Hgb 11.0 g/dl (14.0-18.0) L 08/20/24 Hct 33.7 % (42.0-52.0) L 08/20/24 Plt Count 145 K/uL (130-400) 08/20/24 Neutrophils (%) (Auto) 87.3 % 08/20/24 Lymphocytes (%) (Auto) 3.8 % 08/20/24 Monocytes # (Auto) 0.61 K/uL (0.11-0.59) H 08/20/24 Eosinophils # (Auto) 0.19 K/uL (0.00-0.50) 08/20/24 Immature Granulocyte % (Auto) 0.7 % 08/20/24 Neutrophils # (Auto) 9.08 K/uL (1.40-6.50) H 08/20/24 Lymphocytes # (Auto) 0.39 K/uL (1.20-3.40) L 08/20/24 Monocytes # (Auto) 0.61 K/uL (0.11-0.59) H 08/20/24 Eosinophils # (Auto) 0.19 K/uL (0.00-0.50) 08/20/24 Basophils # (Auto) 0.05 K/uL (0.00-0.20) 08/20/24 Immature Granulocyte # (Auto) 0.07 K/uL (0.01-0.20) 4 Na 137 mmol/L (136-145) 08/20/24 K 5.1 mmol/L (3.5-5.1) 08/20/24 Cl 97 mmol/L (98-107) L 08/20/24 CO2 28 mmol/L (21-32) 08/20/24 Anion Gap 12 (3-11) H 08/20/24 BUN 57 mg/dl (6-23) H 08/20/24 Creatinine 10.38 mg/dl (0.6-1.4) H* 08/20/24 BUN/Creatinine Ratio 5.5 (10-20) L 08/20/24 Glucose Level 122 mg/dl (70-99(Fasting)) H 08/20/24 Ca 9.5 mg/dl (8.6-10.3) 08/20/24 Phosphorus Level 5.6 mg/dl (2.5-4.9) H 08/20/24 Total Bilirubin 1.5 mg/dl (0.2-1.0) H 08/20/24 AST/SGOT 89 U/L (13-39) H 08/20/24 ALT/SGPT 43 U/L (7-52) 08/20/24 Alkaline Phosphatase 48 U/L (34-104) 08/20/24 Total Protein 7.4 gm/dl (6.0-8.3) 08/20/24 Albumin 4.3 gm/dl (3.4-5.0) 08/20/24 Globulin 3.1 gm/dl (2.5-4.0) 08/20/24 Albumin/Globulin Ratio 1.4 (0.9-2) 08/20/24 Procalcitonin 0.32 ng/ml (0-0.5) 08/20/24 INR 1.1 (0.9-1.1) 08/20/24 Adenovirus (PCR) Not Detected (NotDetected) 08/20/24 B. parapertussis DNA (PCR) Not Detected (NotDetected) 11/12 B. pertussis DNA (PCR) Not Detected (NotDetected) 08/20/24 C. pneumoniae DNA (PCR) Not Detected (NotDetected) 4 Coronavirus Type OC43 (PCR) Not Detected (NotDetected) 11/12 Coronavirus Type HKU1 (PCR) Not Detected (NotDetected) 11/12 Coronavirus Type 229E (PCR) Not Detected (NotDetected) 11/12 COVID-19 PCR Not Detected (NotDetected) 08/20/24 Coronavirus Type NL63 (PCR) Not Detected (NotDetected) 11/12 Human Metapneumovirus (PCR) Not Detected (NotDetected) 11/12 Influenza Virus Type A (PCR) Not Detected (NotDetected) Influenza Virus Type B (PCR) Not Detected (NotDetected) M. pneumoniae (PCR) Not Detected (NotDetected) 08/20/24 Parainfluenza Type 1 (PCR) Not Detected (NotDetected) 11/12 Parainfluenza Type 2 (PCR) Not Detected (NotDetected) 11/12 Parainfluenza Type 3 (PCR) Not Detected (NotDetected) 11/12 Parainfluenza Type 4 (PCR) Not Detected (NotDetected) 11/12 RSV (PCR) Not Detected (NotDetected) 08/20/24 Enterovirus/Rhinovirus (PCR) Not Detected (NotDetected) POC pH 7.42 (7.35-7.45) 08/20/24 POC pCO2 42 mmHg (35-46) 08/20/24 POC pO2 100 mmHg (80-95) H 08/20/24 POC HCO3 27 kelly/L (19-24) H 08/20/24 POC Total CO2 28 mmol/L (24-31) 08/20/24 POC Base Excess 2.0 kelly/L (-9-1.8) H 08/20/[address] 08/20/24 Chest X-Ray 08/20/24 Code Status & VTE Plan Code Status FULL CODE Supervising Physician Co-Signing Physician Notes Attending Addendum: Case reviewed with the advanced practitioner. I have personally performed a history and physical examination on the patient. I have reviewed the advanced practitioner's documentation on the date of service referenced in note, and I agree with, and take responsibility for the plan of care. please refer to her notes for full details patient seen and examined, records reviewed by myself as well on exam, patient seen resting in bed, not in distress on Bipap speaks in sentences with no effort no chest pain, dyspnea, palpitations, dizziness on exam VS noted and reviewed oriented x3, not in distress, speaks in sentences with no effort nor accessory muscle use normal rate, regular rhythm, no murmurs Positive bilateral rales, no wheezing non distended, soft, nontender Mild bipedal edema, erythema, warmth no neuro deficits all labs, imaging noted and reviewed ASSESSMENT AND PLAN> Acute hypoxic respiratory failure Volume overload, end-stage renal disease Possible pneumonia CT chest: Pulmonary edema, possible atelectasis versus pneumonia, which is less likely no per radiologist Status post emergency hemodialysis, volume management Ertapenem IV Patient improved after HD Weaned off BiPAP Continue to monitor closely other diagnoses and plan of care as per advanced practitioner's notes Deric Simpson MD
[2024-08-20] MEDS: carvediloL 12.5 MG TAB ONE (09:16)
[2024-08-20] MEDS: carvediloL 25 MG TAB PO ONE (09:17)
[2024-08-20 09:35] LABS: iSTAT Arterial Blood Gas HCO3 27 meg/L (19-24); iSTAT Arterial Blood Gas pCO2 42 mmHg (35-46); iSTAT Arterial Blood Gas pH 7.42 (7.35-7.45); iSTAT Arterial Blood Gas pO2 100 mmHg (80-95); iSTAT Carbon Dioxide 28 mmol/L (24-31); iSTAT Hematocrit 30 % (42-52); iSTAT Hemoglobin 10.2 g/dl (14.0-18.0); iSTAT Potassium 5.6 mmol/L (3.3-5.0); iSTAT Sample Type Arterial; iSTAT Sodium 133 mmol/L (135-144)
[2024-08-20] MEDS ORDERED: CEFEPIME 1000MG 1,000 MG/10 ML SYR IV SCH (10:15)
--- NOTE | 2024-08-20 11:32 | Nephrology Consultation ---
Date of Consultation August 20, 2024 Assessment & Plan (1) Acute hypoxic respiratory failure: w/ HTN emergency requiring aggressive HD; initially on bipap; down to 2L now His OP TW of 99 is clearly not sustainable and will need to be lowered; more to follow before d/c (2) Hypertensive emergency: improving with supportive care > gave AM coreg dose today and aiming for 4-5L fluid removal >target SBP is 140-150s in matter of hours >> on track for this >>give routine OP BP meds >>needs 1.2 L FR >>needs (3) Hypervolemia associated with renal insufficiency: aggressive UF as tolerated today chronic volume overload resulting now in 2 hospital encounters in 6 wks >> continue to educate pt; continue to facilitate pt / OP clinic staff communication (4) ESRD (end stage renal disease) on dialysis: ESRD on MWF [facility] Dr Stephens [facility]; contemplating modality change to PD >> for November 2024 PD cath placement and simultaneous x 2 hernia repair -nxt HD tentatively for 08/22 or as needs dictate History of Present Illness Reason for Consultation: ESRD on HD, volume overload Requesting Physician: Dr Simpson Attending Physician: Deric Simpson MD History of Present Illness 53 y/o M whom I'm asked to see for dialysis needs was sent from HD this AM after presenting with acute hypoxic respiratory failure requiring bipap and with admission CXR concerning for effusion versus PNA; also w/ HTN emergency w/ presenting BP 180s/120s. PMH ESRD since March 2024 on HD at [facility] w/ Dr Stephens, HTN urgency history, also hx of not accessing much medical care prior to this summer when he was admitted here for HTN urgency and multifocal pneumonia. Similar admission here late June in setting of rhinovirus. CXR w/ RML/RLL opacity > plan is for CT chest post treatment. He's been very careful since starting dialysis with fluid and sodium limits per his report; however his OP food counter worker contacted me to discuss this admission>> reports frequent large gains and intolerance of large UF targets. Pt declines 4th HD treatment (nor can OP unit accommodate currently). Pt has been getting very angry at OP clinic staff about challenges of fluid balance. this AM he was 99.1 prior to treatment w/ TW 99. However clinic staff report TW recently upped from 92 kg > 93> 94> and as of 08/06 up to 99 kg "to keep the peace." Apparently also d/t pt c/o and challenges tolerating large fluid removal he now has an order as an outpatient not to remove more than 2 kg/ treatment. Pt is currently in process of exploring change to PD and has met w/ [facility] surgeon on this. I reviewed his care by phone w/ admitting team as well as OP food counter worker > orders placed for emergent dialysis 4 hours with 3-4 L UF target. So far he has had 2 hrs HD and SBP maintained, off of bipap. He endorses dyspnea which worsened since last dialysis treatment. Also ongoing mild edema. denies chest pain, palpitatations, fever but does have chronic cough and periodic soaking sweats since March admission. no n/v, minimal UOP; no flank pain, some edema. no rash. Allergies Allergy/AdvReac Type Severity Reaction Status Date / Time naproxen Allergy Intermediate SWELLING Verified 08/20/24 08:41 EYES AND LIPS Penicillins Allergy Intermediate HIVES, Verified 08/20/24 08:41 SWELLING amoxicillin Allergy Unknown Verified 08/20/24 08:41 Home Medications Medication Instructions Recorded Confirmed Type levothyroxine 200 mcg tablet 200 mcg PO DAILY 02/10/21 08/20/24 History fluticasone propionate 50 2 spray intranasal DAILY #15.8 mL 08/27/21 08/20/24 Rx mcg/actuation nasal spray,suspension guaifenesin 600 mg tablet, 600 mg PO Q12H PRN Congestion 03/29/24 08/20/24 History extended release 12 hr (Mucinex) albuterol sulfate 90 mcg/actuation 2 puff inhalation DAILY PRN 07/09/24 08/20/24 History aerosol inhaler Shortness Of Breath Or Wheezing amlodipine 10 mg tablet 10 mg PO QPM 07/09/24 08/20/24 History carvedilol 25 mg tablet 25 mg PO BID 07/09/24 08/20/24 History cholecalciferol (vitamin D3) 50 50 mcg PO DAILY 07/09/24 08/20/24 History mcg (2,000 unit) tablet (Vitamin D3) sevelamer carbonate 800 mg tablet 800 mg PO TIDWMEAL 07/09/24 08/20/24 History vitamin B complex-vitamin C-folic 1 tab PO DAILY 07/09/24 08/20/24 History acid 0.8 mg tablet (Marylin-Yany) Patient History Medical History ESRD (end stage renal disease) on dialysis Hypothyroid Asthma Seasonal allergies H/O gastroesophageal reflux (GERD) Surgical History History of repair of hiatal hernia Family History Grandfather (Maternal) Hearing loss Father Hypertension Grandmother (Paternal) Cancer unknown type Family/Other Asthma patient not sure but thinks he has a family history of asthma Other No family history of adverse response to anesthesia No family history of bleeding disorder Social History Smoking Status: Never smoker Second Hand Exposure: No; Do You Dip or Chew Tobacco: No; Hx Alcohol Use: No Hx Substance Use: No Preferred Language: Nepali Communication Ability: Effective Email Operations Manager Required: No Beliefs That Will Affect Care: None marital status: Single Current Living Situation: Spouse Current Living Situation Comment: lives at home with current occupational status: employed 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 Feels Safe at Home: Yes Assistive Devices: None Review of Systems 2 Review of Systems: All systems reviewed & are unremarkable except as noted in HPI & below Physical Exam 2 Constitutional: well developed, well nourished and cooperative; no acute distress (on 2L 02nC) and not ill appearing Eyes: EOM intact bilaterally ENMT: Mouth: + dry oral mucous membranes Neck: no nuchal rigidity Respiratory: normal respiratory effort and + labored breathing (w/ speech and exam maneuvers); no respiratory distress and no cough Auscultation: + diminished lung sounds (BL bases) and + crackles (BL bases) Cardiovascular: Rate/Rhythm: regular rate and regular rhythm Extremities: + edema; no AV fistula Gastrointestinal (Abdomen): Inspection/Auscultation: normal bowel sounds P ercussion/Palpation: abdomen soft; abdomen nontender Musculoskeletal: Extremities: strength 5/5 throughout Skin: no rashes, warm and dry Neurologic: gallegos, fluent speech, no tremor Psychiatric: Orientation: alert and oriented x 3 Results & Data Vital Signs (Past 12 Hours) Vital Signs Temp Pulse Pulse Resp BP BP Pulse Ox 08/20/24 11:00 64 154/107 H 08/20/24 10:30 66 157/111 H 08/20/24 10:00 78 175/119 H 08/20/24 09:34 36.8 C 08/20/24 09:05 74 16 176/121 H 100 08/20/24 08:30 73 22 179/125 H 100 08/20/24 08:08 72 16 186/127 H 100 08/20/24 07:06 76 18 182/123 H 98 08/20/24 06:44 104 H 40 H 91 08/20/24 06:36 36.8 C 98 H 20 185/127 H 95 08/20/24 06:36 08/20/24 06:27 97 H O2 Del Method FiO2 08/20/24 11:00 08/20/24 10:30 08/20/24 10:00 08/20/24 09:34 08/20/24 09:05 BiPAP 08/20/24 08:30 BiPAP 08/20/24 08:08 BiPAP 08/20/24 07:06 BiPAP 08/20/24 06:44 40 08/20/24 06:36 BiPAP 08/20/24 06:36 BiPAP 08/20/24 06:27 Laboratory Results 08/20/24 06:30 08/20/24 06:30 Diagnostic Findings cxr (images personally reviewed; agree w/ report) Interval worsening of patchy airspace shadowing in right mid and both lower zones, would recommend clinical and lab correlation and follow-up chest x-ray.
--- NOTE | 2024-08-20 12:03 | Dialysis Progress Note ---
Date of Service August 20, 2024 Assessment & Plan (1) Acute hypoxic respiratory failure: Plan: w/ HTN emergency requiring aggressive HD; initially on bipap; down to 2L now; normally on no 02NC His OP TW of 99 is clearly not sustainable and will need to be lowered; more to follow before d/c (2) Hypertensive emergency: Plan: improving with supportive care > gave AM coreg dose today and aiming for 4-5L fluid removal >target SBP is 140-150s in matter of hours >> on track for this >>give routine OP BP meds >>needs 1.2 L FR >>needs reevaluation of thyroid medication dosing >> defer to rpimary on this (3) Hypervolemia associated with renal insufficiency: Plan: aggressive UF as tolerated today chronic volume overload resulting now in 2 hospital encounters in 6 wks >> continue to educate pt; continue to facilitate pt / OP clinic staff communication new TW to follow (4) ESRD (end stage renal disease) on dialysis: Plan: ESRD on MWF [facility]; contemplating modality change to PD >> for November 2024 PD cath placement and simultaneous x 2 hernia repair -nxt HD tentatively for 08/22 or as needs dictate Admission and Anticipated Discharge Date Admission Date: August 20, 2024 Subjective seen and evaluated on HD; breathing improved; still w/ dry mouth; no sob, no cough now, no chest pain/palpitations Review of Systems 2 Review of Systems: All systems reviewed & are unremarkable except as noted in Subjective Physical Exam 2 Constitutional: well developed, well nourished and cooperative; no acute distress (on 2L 02nC) and not ill appearing Eyes: EOM intact bilaterally ENMT: Mouth: + dry oral mucous membranes Neck: no nuchal rigidity Respiratory: normal respiratory effort and + labored breathing (w/ speech and exam maneuvers); no respiratory distress and no cough Auscultation: + diminished lung sounds (BL bases) and + crackles (BL bases) Cardiovascular: Rate/Rhythm: regular rate and regular rhythm Extremities: + edema; no AV fistula Gastrointestinal (Abdomen): Inspection/Auscultation: normal bowel sounds P ercussion/Palpation: abdomen soft; abdomen nontender Musculoskeletal: Extremities: strength 5/5 throughout Skin: no rashes, warm and dry Psychiatric: Orientation: alert and oriented x 3 Results & Data Vital Signs (Past 12 Hours) Vital Signs Temp Pulse Pulse Resp BP BP Pulse Ox 08/20/24 11:30 64 161/106 H 08/20/24 11:00 64 154/107 H 08/20/24 10:30 66 157/111 H 08/20/24 10:00 78 175/119 H 08/20/24 09:34 36.8 C 08/20/24 09:05 74 16 176/121 H 100 08/20/24 08:30 73 22 179/125 H 100 08/20/24 08:08 72 16 186/127 H 100 08/20/24 07:06 76 18 182/123 H 98 08/20/24 06:44 104 H 40 H 91 08/20/24 06:36 36.8 C 98 H 20 185/127 H 95 08/20/24 06:36 08/20/24 06:27 97 H O2 Del Method FiO2 08/20/24 11:30 08/20/24 11:00 08/20/24 10:30 08/20/24 10:00 08/20/24 09:34 08/20/24 09:05 BiPAP 08/20/24 08:30 BiPAP 08/20/24 08:08 BiPAP 08/20/24 07:06 BiPAP 08/20/24 06:44 40 08/20/24 06:36 BiPAP 08/20/24 06:36 BiPAP 08/20/24 06:27 Laboratory Results 08/20/24 06:30 08/20/24 06:30
[2024-08-20] MEDS ORDERED: AZTREONAM 2,000 MG in DEXTROSE 5% MINI-B 100 ML IV SCH (12:30)
[2024-08-20] MEDS ORDERED: guaiFENesin 600 MG TABCR PO PRN (14:03)
[2024-08-20] MEDS ORDERED: ONDANSETRON INJ 2 MG/ML 2 ML VIAL IV PRN (14:03)
[2024-08-20] MEDS ORDERED: ALBUTEROL 0.083% NEBU SOLN 3 ML VIAL NEB PRN (14:03)
[2024-08-20] MEDS ORDERED: ACETAMINOPHEN 325 MG TAB PO PRN (14:03)
[2024-08-20] MEDS ORDERED: POLYETHYLENE (MIRALAX) 17 GM PACK PO PRN (14:03)
--- NOTE | 2024-08-20 14:04 | Electrocardiogram Report ---
Test Reason : Blood Pressure : */* mmHG Vent. Rate : 95 BPM Atrial Rate : 95 BPM P-R Int : 186 ms QRS Dur : 82 ms QT Int : 340 ms P-R-T Axes : 67 34 84 degrees QTcB Int : 427 ms Normal sinus rhythm Possible Left atrial enlargement Septal infarct (cited on or before 29-Mar-2024) Abnormal ECG When compared with ECG of 09-Jul-2024 07:11, No significant change was found Confirmed by Trevor Ragsdale ([id number]) on 08/20/2024 2:03:44 PM Referred By: Confirmed By: Trevor Ragsdale
--- NOTE | 2024-08-20 14:40 | CT Scan Report ---
CT chest diagnostic wo con CT DOSE: 612.59 mGy.cm CLINICAL HISTORY: 53 years-old Male with Hypoxia, r/o PNA. Acute shortness of breath with hypoxia an d possible pneumonia TECHNIQUE: Multiaxial CT images of the chest were performed without contrast. A dose lowering techni que was utilized adhering to the principles of ALARA. COMPARISON: Chest radiograph of same day, chest CT 03/30/2024 FINDINGS: No dominant thyroid nodule. Enlarged mediastinal, hilar and axillary chain lymph nodes. The se are generally unchanged in size from prior measuring up to 1.2 cm within the right axilla. Moderat e cardiomegaly has increased in size from prior. Trace pericardial effusion. No thoracic aortic aneur ysm. Main pulmonary artery measures 3.9 cm suggestive of pulmonary arterial hypertension, previously 3.2 cm. Right IJ hemodialysis dual-lumen catheter distal tip terminates in the right atrium. Decrease d attenuation of the cardiac blood pool suggestive of anemia. Trace left and small right pleural effusions. No pneumothorax. Ground glass densities with intralobul ar septal thickening. Mild dependent bibasilar consolidation. Postinflammatory scarring within the will bpleural lungs. No suspicious pulmonary nodules or masses. The central airways are patent. Mild nonspecific distal esophageal wall thickening. Hepatosplenomegaly. Mild body wall edema with wheel and pinion inspector ecomastia. There is no acute fracture identified. IMPRESSION: 1. Cardiomegaly with pulmonary edema, trace left and small right pleural effusions. 2. Mild dependent bibasilar consolidation favors atelectasis. Pneumonia considered less likely. 3. Mediastinal, hilar and axillary chain lymphadenopathy, similar to the 03/30/2024 study. 4. Possible underlying pulmonary hypertension. ACT 112: Negative or not required by law. Electronically signed by: Adam Aguilera M.D. 08/20/2024 2:39 PM
[2024-08-20] MEDS: ERTAPENEM 500MG 500 MG/5 ML SYR IV SCH (15:43)
[2024-08-20] MEDS: SEVELAMER CARBONATE 800 MG TAB PO SCH (15:45)
[2024-08-20] MEDS: HEPARIN SOD 5,000 UNIT/0.5 ML VIAL SQ SCH (15:48)
[2024-08-20] MEDS: carvediloL 25 MG TAB PO SCH (17:06)
[2024-08-20] MEDS ORDERED: Nursing to Pharmacy Communication SCH (17:15)
[2024-08-20 17:55] LABS: Appearance Urine Clear (Clear); Bacteria Urine Automated None Seen (None Seen); Bilirubin Urine Negative (Negative); Blood Urine 1+ (Negative); Color Urine Yellow; Epithelial Cell Urine Auto 0-2 /hpf (0-2); Glucose Urine UA Negative (Negative); Ketones Urine Negative (Negative); Leukocyte Esterase Urine Negative (Negative); Nitrite Urine Negative (Negative); Protein Urine 3+ (Negative); Specific Gravity Urine 1.013 (1.000-1.030); Urobilinogen Urine Negative (Negative); WBC Urine Automated 0-5 /hpf (0-5); pH Urine 8.5 (4.5-7.5)
[2024-08-20] MEDS: hydrALAZINE HCL 20 MG/ML VIAL IV PRN (18:10)
[2024-08-20] MEDS: amLODIPine BESYLATE 5 MG TAB PO SCH (19:57)
[2024-08-20] MEDS ORDERED: MELATONIN 3 MG TAB PO PRN (21:00)
[2024-08-21] MEDS: LABETALOL HCL 100 MG TAB PO STA (03:03)
[2024-08-21] MEDS: LEVOTHYROXINE SODIUM 200 MCG TABLET PO SCH (06:25)
[2024-08-21 06:47] LABS: Basophils # (auto) 0.04 K/uL (0.00-0.20); Basophils % (auto) 0.6 %; Eosinophils # (auto) 0.16 K/uL (0.00-0.50); Eosinophils % (auto) 2.5 %; Hematocrit (blood only) 30.9 % (42.0-52.0); Hemoglobin 10.2 g/dl (14.0-18.0); Immature Granulocytes # (auto) 0.02 K/uL (0.01-0.20); Immature Granulocytes % (auto) 0.3 %; Lymphocytes # (auto) 0.46 K/uL (1.20-3.40); Lymphocytes % (auto) 7.3 %; Mean Corpuscular Volume 93.9 fL (80.0-100.0); Mean Platelet Volume 9.3 fL (9.4-12.4); Monocytes # (auto) 0.64 K/uL (0.11-0.59); Monocytes % (auto) 10.2 %; Neutrophils # (auto) 4.97 K/uL (1.40-6.50); Neutrophils % (auto) 79.1 %; Platelet Count 155 K/uL (130-400); RDW Coefficient of Variation 15.9 % (11.5-14.5); RDW Standard Deviation 55.1 fL (36.4-46.3); Red Blood Count 3.29 M/uL (4.70-6.10); White Blood Count 6.29 K/ul (4.8-10.8)
[2024-08-21 07:14] LABS: BUN Creatinine Ratio 4.8 (10-20); Calcium 9.6 mg/dl (8.6-10.3); Magnesium 2.3 mg/dl (1.7-2.4); Phosphorus 4.5 mg/dl (2.5-4.9); Potassium 4.5 mmol/L (3.5-5.1)
[2024-08-21] MEDS ORDERED: carvediloL 25 MG TAB PO SCH (08:00)
--- NOTE | 2024-08-21 08:15 | Communication Note ---
Date of Service: August 21, 2024 3 AM Notified by RN of minimal troponin elevation Patient asymptomatic as per RN SBP 1 40-1 80s since admission Heart rate 60 to 80s AP Hypertensive urgency Troponin elevation Labetalol in place of Coreg Will relay to AM provider.
[2024-08-21] MEDS: SEVELAMER CARBONATE 800 MG TAB PO SCH (08:23)
[2024-08-21] MEDS: NEPHROCAPS PO SCH (08:42)
[2024-08-21] MEDS: CHOLECALCIFEROL 25 MCG (1000 UNITS) TAB PO SCH (08:42)
[2024-08-21] MEDS: ADVANCED PROBIOTIC 625 MG CAPSULE PO SCH (08:42)
[2024-08-21] MEDS: FLUTICASONE PROPIONATE NA SPR 16 GM BTL SCH (08:44)
--- NOTE | 2024-08-21 09:08 | Hospitalist Progress Note ---
Date of Service August 21, 2024 Assessment & Plan (1) Acute hypoxic respiratory failure: (2) Hypervolemia associated with renal insufficiency: (3) Hypertensive emergency: (4) ESRD (end stage renal disease) on dialysis: Plan per admitting TIMMY notes with addendum: This is a 53-year-old male who has a significant past medical history of End- stage renal disease on HD MWF since 05/2024, HTN, page kidney, hypothyroidism, hyperphosphatemia, anemia of renal disease who presents to ED secondary to shortness of breath and hypoxia for a few days. Acute hypoxic respiratory failure Hypervolemia/Pulmonary edema (Possible, Suspected, Likely) Acute on chronic diastolic CHF due to hypertensive emergency and cardiorenal syndrome. Possible Bibasilar pneumonia 08/20 underwent emergency HD weaned off Bipap after HD CT chest: 1. Cardiomegaly with pulmonary edema, trace left and small right pleural effusions. 2. Mild dependent bibasilar consolidation favors atelectasis. Pneumonia considered less likely. 3. Mediastinal, hilar and axillary chain lymphadenopathy, similar to the 03/30/2024 study. 4. Possible underlying pulmonary hypertension. 08/21 remains on room air s/p HD today further HD recommendations per Nephro still has cough with white sputum continue IV antibiotic given recent hospitalizations sputum culture ordered ESRD on HD continue tx per nephro Hypertensive emergency improved with HD usual Metoprolol changed to Labetalol continue amlodipine monitor closely Elevated troponin suspect demand ischemia, no ecg changes trop plateaued to 80's -90s Chronic Anemia in setting of renal disease: hgb stable Hypothyroidism: TSH elevated at 18 but T4 normal - recommend repeat TSH in 2 weeks as OP DVT ppx: SQ Heparin FULL CODE PCP: Praneeth Dispo: pending, lives at home plan of care discussed with patient in detail and at length all questions answered he is understanding, agreeable, comfortable with the plan of care Admission and Anticipated Discharge Date Admission Date: August 20, 2024 Subjective ff up for volume overload, hypertensive urgency, etc seen sitting up in bed, comfortable in good spirits states he feels better overall breathing is much better has intermittent cough, with white sputum no chest pain, dyspnea, palpitations, dizziness no other new symptoms Review of Systems Review of Systems: all noted and negative except for above Physical Exam 2 Physical Exam: General- oriented x 3, not in distress, speaks in sentences with no effort or accessory muscle use Eyes- anicteric Neck- no JVD Lungs- mild rales at the bases, no wheezing Heart- normal rate, regular rhythm; no murmurs Abdomen- normal bowel sounds, nondistended, soft, nontender Extremities- no pretibial edema, no calf tenderness Neuro- alert, oriented x 3; no gross focal neurologic deficits Skin- warm & dry Results & Data Results & Data Vital Signs (Past 12 Hours) Vital Signs Temp Pulse Pulse Resp BP BP Pulse Ox 08/21/24 07:27 36.9 C 82 19 169/114 H 95 08/21/24 03:58 37.1 C 71 18 159/90 H 96 08/21/24 02:52 85 24 165/91 H 93 08/20/24 23:35 77 08/20/24 23:01 37.1 C 77 16 162/93 H 96 O2 Del Method 08/21/24 07:27 Room Air 08/21/24 03:58 Room Air 08/21/24 02:52 Room Air 08/20/24 23:35 08/20/24 23:01 Room Air all noted and reviewed including below
[2024-08-21] MEDS ORDERED: AZTREONAM 2,000 MG in DEXTROSE 5% MINI-B 100 ML IV SCH (11:30)
--- NOTE | 2024-08-21 11:53 | Nephrology Progress Note ---
Date of Service August 21, 2024 Assessment & Plan (1) Hypertensive urgency: Plan: improving with supportive care but still overall uncontrolled> s/p 5L UF yesterday; trial 2 HR hd today and plan regular tx tomorrow likely as IP so we can monitor BP coreg changed to labetalol 100 mg bid and BP still uncontrolled (170-180s sbp) >>2 hr tx today w/ goal 2L UF >>cont labetalol current dose >target SBP is 140-150s in matter of hours >> on track for this >>continue amlodipine >>cont 1.2 L FR >>needs more / aggressive UF on HD as tolerated nad lower TW (2) Hypervolemia associated with renal insufficiency: Plan: aggressive UF as tolerated yesterday; still w/ e/o vol OL on exam to day and on imaging yesterday chronic volume overload resulting now in 2 hospital encounters in 6 wks >> continue to educate pt; continue to facilitate pt / OP clinic staff communication (3) ESRD (end stage renal disease) on dialysis: Plan: ESRD on MWF ICH[facility]; contemplating modality change to PD >> for November 2024 PD cath placement and simultaneous x 2 hernia repair HD 2 hr today, then -nxt HD tentatively for 08/22 or as needs dictate (4) Acute hypoxic respiratory failure: Plan: RESOLVED; w/ HTN emergency requiring aggressive HD on presentation; initially on bipap; down to 2L on dialysis and since end of first treatment on RA His OP TW of 99 is clearly not sustainable and will need to be lowered; more to follow before d/c Admission and Anticipated Discharge Date Admission Date: August 20, 2024 Subjective troponin elevation noted/ asx; tolerted 5L UF yesterday; pt anxious for d/c; breathing better; does note still BLE R>L edema; no chest pain or palpitations, no n/v, no sob; no focal numbness/weakness or confusion Review of Systems 2 Review of Systems: All systems reviewed & are unremarkable except as noted in Subjective Physical Exam 2 Constitutional: well developed, well nourished and cooperative; no acute distress (on RA) and not ill appearing Eyes: EOM intact bilaterally ENMT: Mouth: + dry oral mucous membranes Neck: no nuchal rigidity Respiratory: normal respiratory effort; no respiratory distress and no cough Auscultation: + diminished lung sounds (BL bases) and + crackles (BL bases occasional and end insp) Cardiovascular: Rate/Rhythm: regular rate and regular rhythm Extremities: + edema; no AV fistula Gastrointestinal (Abdomen): Inspection/Auscultation: normal bowel sounds P ercussion/Palpation: abdomen soft; abdomen nontender Musculoskeletal: Extremities: strength 5/5 throughout Skin: no rashes, warm and dry Psychiatric: Orientation: alert and oriented x 3 Results & Data Vital Signs (Past 12 Hours) Vital Signs Temp Pulse Resp BP BP Pulse Ox O2 Del Method 08/21/24 10:59 37.1 C 76 20 177/102 H 171/113 H 97 Room Air 08/21/24 09:13 76 158/96 H 08/21/24 07:27 36.9 C 82 19 169/114 H 95 Room Air 08/21/24 03:58 37.1 C 71 18 159/90 H 96 Room Air 08/21/24 02:52 85 24 165/91 H 93 Room Air Laboratory Results 08/21/24 06:29 08/21/24 06:[address] post HD chest non con 1. Cardiomegaly with pulmonary edema, trace left and small right pleural effusions. 2. Mild dependent bibasilar consolidation favors atelectasis. Pneumonia considered less likely. 3. Mediastinal, hilar and axillary chain lymphadenopathy, similar to the 03/30/2024 study. 4. Possible underlying pulmonary hypertension.
[2024-08-21] MEDS: HEPARIN SOD (PORCINE) 1000 UNIT/ML IV ONE (14:07)
[2024-08-21] MEDS: HEPARIN SOD (PORCINE) 1000 UNIT/ML IV SCH (16:22)
[2024-08-21] MEDS: LABETALOL HCL 100 MG TAB PO SCH (19:49)
[2024-08-21] MEDS: SODIUM CHLORIDE 0.65% NA SOLN 45 ML (OCEAN) PRN (21:05)
--- NOTE | 2024-08-21 23:58 | Hospitalist Progress Note ---
Date of Service August 21, 2024 Assessment & Plan (1) Acute hypoxic respiratory failure: (2) Hypervolemia associated with renal insufficiency: (3) Hypertensive emergency: (4) ESRD (end stage renal disease) on dialysis: Plan This is a 53-year-old male who has a significant past medical history of End- stage renal disease on HD MWF since 05/2024, HTN, page kidney, hypothyroidism, hyperphosphatemia, anemia of renal disease who presents to ED secondary to shortness of breath and hypoxia for a few days. Acute hypoxic respiratory failure Hypervolemia/Pulmonary edema Hypertensive emergency admit to PCU discussed with magazine filler - pt to undergo emergent HD will obtain CT Chest post HD to observe for possible PNA, no leukocytosis, procal normal tx with empiric aztreonam probiotic consider pulm consult based on CT results (Possible, Suspected, Likely) Acute on chronic diastolic CHF due to hypertensive emergency and cardiorenal syndrome. ESRD on HD continue tx per nephro Hypertensive emergency HTN at baseline continue amlodipine and coreg family reports increased BP at home, may need adjustment to his medications? Elevated troponin: suspect demand ischemia, no ecg changes, cycle trop Chronic Anemia in setting of renal disease: hgb stable Hypothyroidism: TSH elevated at 18 but T4 normal - recommend repeat TSH in 2 weeks as OP DVT ppx: SQ Heparin FULL CODE PCP: Praneeth Dispo: admit to PCU post HD Pt was seen and examined in collaboration with Dr. Simpson, please see addendum I spent a total of 76 minutes reviewing notes, outpatient records, labs, medication, coordinating, documenting and providing care for this patient excluding time spent in the performance of separately billed services. Admission and Anticipated Discharge Date Admission Date: August 20, 2024 Results & Data Results & Data Vital Signs (Past 12 Hours) Vital Signs Temp Pulse Pulse Resp BP BP Pulse Ox 08/21/24 22:15 37.0 C 81 16 163/100 H 96 08/21/24 20:01 36.6 C 79 18 192/122 H 100 08/21/24 15:45 36.8 C 73 174/115 H 08/21/24 15:30 75 142/109 H 08/21/24 15:00 70 160/120 H 08/21/24 14:30 72 170/119 H 08/21/24 14:00 71 160/117 H 08/21/24 13:35 76 165/115 H 08/21/24 13:30 36.8 C O2 Del Method 08/21/24 22:15 Room Air 08/21/24 20:01 Room Air 08/21/24 15:45 08/21/24 15:30 08/21/24 15:00 08/21/24 14:30 08/21/24 14:00 08/21/24 13:35 08/21/24 13:30
[2024-08-22] MEDS ORDERED: hydrALAZINE HCL 25 MG TAB PO SCH (09:00)
[2024-08-22] MEDS: HEPARIN SOD (PORCINE) 1000 UNIT/ML IV ONE (09:21)
[2024-08-22] MEDS: HEPARIN SOD (PORCINE) 1000 UNIT/ML IV SCH (09:21)
[2024-08-22 09:54] LABS: BUN Creatinine Ratio 5.2 (10-20); Calcium 9.8 mg/dl (8.6-10.3); Creatinine Clr Calc Pharmacy 12.8 ml/min; Potassium 4.5 mmol/L (3.5-5.1)
--- NOTE | 2024-08-22 12:14 | Nephrology Progress Note ---
Date of Service August 22, 2024 Assessment & Plan (1) Hypertensive urgency: Plan: resolved with supportive care but still overall uncontrolled HTN > s/p 5L UF 08/20; 2.5L yesterday and goal 4L UF today coreg changed to labetalol 100 mg bid and BP still uncontrolled (170-180s sbp) >>2 hr tx today w/ goal 2L UF >>cont labetalol current dose >target SBP is 140-150s in matter of hours >> on track for this >>continue amlodipine >>cont 1.2 L FR >>needs more / aggressive UF on HD as tolerated nad lower TW Reasonable for hospital discharge; will sign off NEPHRO D/C RECOMMENDATIONS -PCP to recheck TSH w/in 10 days of hospital d/c > may need further synthroid adjustment -hospitalist pls include details of thyroid labs in d/c summary -I will contact his OP dialysis unit and his OP outside machinist helper re lower target weight (of today's post treatment weight < pt still on treatment currently; likely to be approx 93 kg) and lifting 2 L / tx limit on UF -continue 1.2 L FR and <2 gm daily sodium at discharge -suggest going back to coreg prior to admission dose and continuing OP amlodipine dosing >agree w/ starting hydralazine > suggest 25 mg twice daily; do not take w/in 2 hours of dialysis treatment -resume regular OP hemodialysis schedule -no nephrology discharge clinic appt needed since he follows at dialysis Care coordinated w/ Dr Arellano regarding d/c HTN medications, thyroid f/u plan, communication for dialysis units and next tx; we are in agreement. (2) Hypervolemia associated with renal insufficiency: Plan: aggressive UF as tolerated yesterday; still w/ e/o vol OL on exam to day and on imaging yesterday chronic volume overload resulting now in 2 hospital encounters in 6 wks >> continue to educate pt; continue to facilitate pt / OP clinic staff communication (3) ESRD (end stage renal disease) on dialysis: Plan: ESRD on MWF ICHD Dr [facility]; contemplating modality change to PD >> for November 2024 PD cath placement and simultaneous x 2 hernia repair HD 4 hr today, then -nxt HD tentatively for 08/24 or as needs dictate (4) Acute hypoxic respiratory failure: Plan: RESOLVED; w/ HTN emergency requiring aggressive HD on presentation; initially on bipap; down to 2L on dialysis and since end of first treatment on RA His OP TW of 99 is clearly not sustainable and will need to be lowered; more to follow before d/c CT chest report mentions possible plm arterial HTN but none seen on TTE Admission and Anticipated Discharge Date Admission Date: August 20, 2024 Subjective no interval events clinically; pt feels no sob, no lightheadedness or presyncopal sx; states edema gone; no post treatment malaise Review of Systems 2 Review of Systems: All systems reviewed & are unremarkable except as noted in Subjective Physical Exam 2 Constitutional: well developed, well nourished and cooperative; no acute distress (on RA) and not ill appearing Eyes: EOM intact bilaterally ENMT: Mouth: + dry oral mucous membranes Respiratory: normal respiratory effort; no respiratory distress, no labored breathing and no cough Auscultation: + diminished lung sounds (anterior exam) Cardiovascular: Rate/Rhythm: regular rate and regular rhythm Extremities: + edema; no AV fistula Gastrointestinal (Abdomen): Inspection/Auscultation: normal bowel sounds P ercussion/Palpation: abdomen soft; abdomen nontender Musculoskeletal: Extremities: strength 5/5 throughout Skin: no rashes, warm and dry Psychiatric: Orientation: alert and oriented x 3 Results & Data Vital Signs (Past 12 Hours) Vital Signs Temp Pulse Pulse Resp BP BP Pulse Ox 08/22/24 11:30 81 160/107 H 08/22/24 11:00 72 153/108 H 08/22/24 10:30 74 152/105 H 08/22/24 10:00 74 158/111 H 08/22/24 09:45 78 08/22/24 09:30 74 169/116 H 08/22/24 09:12 76 153/103 H 08/22/24 09:09 36.6 C 81 08/22/24 02:44 37.0 C 80 18 163/102 H 97 O2 Del Method 08/22/24 11:30 08/22/24 11:00 08/22/24 10:30 08/22/24 10:00 08/22/24 09:45 08/22/24 09:30 08/22/24 09:12 08/22/24 09:09 08/22/24 02:44 Room Air Laboratory Results 08/21/24 06:29 08/22/24 08:40
--- NOTE | 2024-08-22 13:19 | Discharge Summary ---
Discharge Summary Date of Service August 22, 2024 Principal Dx & Hospital Course #1 = Principal Diagnosis (1) Acute hypoxic respiratory failure: (2) Hypervolemia associated with renal insufficiency: (3) Hypertensive emergency: (4) ESRD (end stage renal disease) on dialysis: Plan Patient is a 53-year-old gentleman with known end-stage renal disease on hemodialysis. They have been adjusting his dry weight and the amount of fluid they have been removing with ultrafiltration and had actually decreased the amount of fluid they were taking off of the past couple weeks. Presented to the emergency room acute hypoxic respiratory failure and uncontrolled hypertension. Patient was admitted to the hospital. He was supported with oxygen. Underwent immediate hemodialysis to remove fluid. With dialysis his respiratory failure rapidly resolved. His blood pressure was difficult to control. They attempted switching his Coreg to labetalol. Did not seek a whole lot of improvement with that and nephrology recommended continuing Coreg at discharge. He continues amlodipine. Hydralazine was added to his medical regimen for better blood pressure control. With a decrease in his volume his blood pressure improved. On the day of discharge he is up and ambulatory he was no longer short of breath. He was asking to go home. He will complete his hemodialysis today. He will continue his amlodipine and Coreg dosing. Hydralazine will be added to his medical regimen for better blood pressure control as well as a change in his dry weight and the amount of fluid taking off it hemodialysis sessions to assist with the blood pressure control. He will recheck his TSH through his PCP as an outpatient to determine if he is on appropriate dose of Synthroid which would also help manage his blood pressure. And may need further titration of hydralazine. Coordinated discharge plan with nephrology. He will follow-up with his PCP. Notes For Next Care Provider Check TSH free T4 in 10 to 14 days May need further titration of hydralazine for blood pressure support and control Resume usual hemodialysis Medication Changes From Visit Hydralazine twice daily added for blood pressure control Admission HPI Per Admitting Provider This is a 53-year-old male who has a significant past medical history of End- stage renal disease on HD MWF since 05/2024, HTN, page kidney, hypothyroidism, hyperphosphatemia, anemia of renal disease who presents to ED secondary to shortness of breath and hypoxia for a few days. His is at bedside who also helps elicit history. He reports he went to dialysis this morning where he became very sweaty, "soaking his shirt," hypertensive and he was noted to be hypoxic. He was referred over to ED for further evaluation. He typically completes dialysis Tuesday. His last HD was on 08/17/2024. Payam santana notes after HD Tuesday evening he was very lethargic, tired and had, "no get up and go." Through the weekend he had intermittent shortness of breath and productive cough of frothy sputum. He complains of orthopnea and PND. He was unable to lay flat last night as this resulted in significant shortness of breath and coughing. He also notes intermittent chills and sweats but denies any documented fever. He has no known sick contacts. He denies lightheadedness, dizziness, chest pain, hemoptysis, nausea, vomiting, abdominal pain or diarrhea. He does still produce urine and feels he is producing more than usual and complains of dysuria after urination. He has been taking his medications as prescribed. His primary wildlife biology technician is Dr. Stephens. reports over the last 2 weeks he has been having less removed from 4.5 L down to 2 L. Prior to this he was having intermittent episodes of presyncope while at dialysis and that is why they reduced his volume. Since then he has noted increasing swelling in his extremities as well as weight gain. Per patient and wildlife biology technician was not concerned regarding weight gain as he did not want him passing out during dialysis. They also note intermittent fluctuations in his blood pressure, mostly high. Last evening it was systolically 170s over 110. Patient denies any headache, vision change or chest pain with this. He did not receive any dialysis treatment today. In ED patient was hypoxic and eventually required BiPAP. Initial chest x-ray concerning for interval worsening of patchy airspace shadowing in the right mid both lower zones. He did have an elevated troponin at 87.1 as well as he had hypermagnesemia and hyperphosphatemia. His procalcitonin was normal. His respiratory bio fire was negative. Of significance patient was hospitalized on 07/09 to 07/11 with a similar presentation although at this time he did test positive for rhinovirus. Upon admission he was requiring BiPAP therapy and required emergent hemodialysis. He required multiple sessions of hemodialysis to remove appropriate fluid. Repeat chest x-ray showed improvement in pulmonary infiltrates. There was also question regarding possible pneumonia and he was treated with a course of Levaquin throughout his hospital stay. Admission Exam Per Admitting Provider See H&P Discharge Exam Constitutional: Alert HEENT: Mucous membranes moist. Lungs: Decreased breath sounds, no Rales CV: S1-S2, regular Abdomen: Soft, nontender, nondistended Extremities: Trace to 1+ pretibial edema, improved Neuro: No focal deficits Psych: Cooperative, normal mood Updated Medication List Medication Instructions Recorded Confirmed Type levothyroxine 200 mcg tablet 200 mcg PO DAILY 02/10/21 08/20/24 History fluticasone propionate 50 2 spray intranasal DAILY #15.8 mL 08/27/21 08/20/24 Rx mcg/actuation nasal spray,suspension guaifenesin 600 mg tablet, 600 mg PO Q12H PRN Congestion 03/29/24 08/20/24 History extended release 12 hr (Mucinex) albuterol sulfate 90 mcg/actuation 2 puff inhalation DAILY PRN 07/09/24 08/20/24 History aerosol inhaler Shortness Of Breath Or Wheezing amlodipine 10 mg tablet 10 mg PO QPM 07/09/24 08/20/24 History carvedilol 25 mg tablet 25 mg PO BID 07/09/24 08/20/24 History cholecalciferol (vitamin D3) 50 50 mcg PO DAILY 07/09/24 08/20/24 History mcg (2,000 unit) tablet (Vitamin D3) sevelamer carbonate 800 mg tablet 800 mg PO TIDWMEAL 07/09/24 08/20/24 History vitamin B complex-vitamin C-folic 1 tab PO DAILY 07/09/24 08/20/24 History acid 0.8 mg tablet (Marylin-Yany) hydralazine 25 mg tablet 25 mg PO BID #60 tabs 08/22/24 Rx Hospital Stay Data Consultations 08/20/24 08:37 ED Decision to Admit Stat 08/20/24 11:34 Consult Nephrology Routine Diagnostic Imagining Performed 08/20/24 14:03 CT chest diagnostic wo con Urgent Reviewed imaging, laboratory and diagnostic studies. Pertinent findings as below. Electrolytes stable Creatinine 7.[address] on admission was consistent with pulmonary edema and effusion, adenopathy unchanged from previous study TSH 18.23 Pending Results Patient Have Any Pending Studies at Discharge: No Discharge Instructions Given to Patient (Per Discharging Provider) Take a probiotic daily ([employer] Brand) recommended for at least 1 month. Resume your usual hemodialysis schedule. Dr. Rosado will be coordinating with your dialysis center at your new dry weight. Discuss with your PCP rechecking her TSH in 10 to 14 days Total Time Total Time Spent Total Time Spent (In Minutes): 35
[2024-08-22 14:11] VITALS: TEMP 97.7
[2024-08-22 14:14] VITALS: PULSE 83; RESP 19; O2SAT 95
--- NOTE | 2024-08-22 14:32 | Communication Note ---
Date of Service: August 22, 2024 Contacted [facility] [place] -new TW 93.5 kg -removed order limiting 2L UF/tx Primary social organization professor updated via TText on above; we are in agreement.
[2024-08-22 14:39] VITALS: BP 171/113
--- NOTE | 2024-08-23 07:38 | Coding Query ---
To promote full compliance with coding requirements relating to patient care, provider participation is requested in all cases of doctor of podiatry uncertainty. Please assist us with the question(s) below: 08/21 IM PN Hypervolemia/Pulmonary edema (Possible, Suspected, Likely) Acute on chronic diastolic CHF due to hypertensive emergency and cardiorenal syndrome Coding Question(s): The diagnosis(es) below was documented in the (doctor of podiatry fill out source document ie H&P, progress notes, etc.) then subsequently fell off all further documentation. Please indicate if it is still a possible diagnosis or ruled out. Physician's Response(s): A/C diastolic heart failure ( x ) Diagnosed and POA ( ) Diagnosed and not POA ( ) Ruled out ( ) Other (please specify) Sincerely, Maryanne Mckenna, ASHLEY, [facility] Inpatient Manager Process) KETURAH
== END 2024-08-22 15:18 | disposition home or self-care (01) | DRG 291 ==
LOC: ED 06:24 → EDINP 09:36 → SUATTDRO 09:36 → EDINP 12:52 → 2S 14:28
DX: Z88.1 Allergy status to other antibiotic agents; Z79.899 Other long term (current) drug therapy; I16.1 Hypertensive emergency; Z79.890 Hormone replacement therapy; E83.41 Hypermagnesemia; Z88.8 Allergy status to other drugs, medicaments and biological substances; E03.9 Hypothyroidism, unspecified; D63.1 Anemia in chronic kidney disease; J18.9 Pneumonia, unspecified organism; Z11.52 Encounter for screening for COVID-19; E87.70 Fluid overload, unspecified; K21.9 Gastro-esophageal reflux disease without esophagitis; I24.89 Other forms of acute ischemic heart disease; I50.33 Acute on chronic diastolic (congestive) heart failure; Z99.2 Dependence on renal dialysis; J96.01 Acute respiratory failure with hypoxia; Z88.0 Allergy status to penicillin; N18.6 End stage renal disease; J45.909 Unspecified asthma, uncomplicated; E83.39 Other disorders of phosphorus metabolism; I13.2 Hypertensive heart and chronic kidney disease with heart failure and with stage 5 chronic kidney disease, or end stage renal disease